=== PATIENT | female | born 1955 | race Hispanic/Latino ===

== ENCOUNTER 2016-10-09 18:54 | Emergency (ER) | payer MEDICAID, SELFPAY ==
[2016-10-09 19:16] VITALS: TEMP 98.3
--- NOTE | 2016-10-09 19:22 | ED PDOC ---
Arrival/HPI - General Chief Complaint: Palpitations Time Seen by Provider: 10/09/16 19:08 Historian: Patient - History of Present Illness Narrative History of Present Illness (Text): 10/09/16 19:16 A 60 year old female, whose past medical history includes type 2 diabetes, hyperlipidemia, COPD and depression, presents to the emergency department complaining of palpitations for the past several weeks. Patient states she seemed to have the palpitations more today causing her to come in for further evaluation. She currently denies any palpitations at this time. Patient notes anxiety and stress of late but denies any fever, chills, nausea, vomiting, diarrhea, abdominal pain, urinary symptoms, chest pain, lower extremity swelling , shortness of breath, headache, dizziness, vision changes or any other complaints. PMD: Dr. Rex Bolanos Time/Duration: Other (Several weeks) Symptom Course: Unchanged Quality: Other Context: Other Past Medical History - Provider Review Nursing Documentation Reviewed: Yes - Infectious Disease Hx of Infectious Diseases: None - Pulmonary Hx Chronic Obstructive Pulmonary Disease (COPD): Yes Hx Pneumonia: Yes (x2) - Endocrine/Metabolic Hx Diabetes Mellitus Type 2: Yes - Hematological/Oncological Other/Comment: Unknown problem with white blood cells. - Psychiatric Hx Depression: Yes Hx Substance Use: No - Surgical History Hx Appendectomy: Yes Family/Social History - Physician Review Nursing Documentation Reviewed: Yes Family/Social History: No Known Family HX Smoking Status: Heavy Smoker > 10 Cigarettes Daily Hx Alcohol Use: No Hx Substance Use: No Allergies/Home Meds Allergies/Adverse Reactions: Allergies sulfur Allergy (Uncoded 10/09/16 19:06) RASH Review of Systems - Physician Review All systems were reviewed & negative as marked: Yes - Review of Systems Constitutional: absent: Fevers, Night Sweats Eyes: absent: Vision Changes Respiratory: absent: SOB Cardiovascular: Palpitations. absent: Chest Pain, Edema, Syncope Gastrointestinal: absent: Abdominal Pain, Diarrhea, Nausea, Vomiting Genitourinary Female: absent: Dysuria, Frequency, Hematuria, Urine Output Changes Neurological: absent: Headache, Dizziness Psychiatric: Anxiety Physical Exam Vital Signs Reviewed: Yes Vital Signs Temp Pulse Resp BP Pulse Ox 10/09/16 19:08 98.3 F 100 H 22 138/91 H 100 Temperature: Afebrile Blood Pressure: Hypertensive Pulse: Regular Respiratory Rate: Normal Appearance: Positive for: Well-Appearing, Non-Toxic, Comfortable Pain Distress: None Mental Status: Positive for: Alert and Oriented X 3 - Systems Exam Head: Present: Atraumatic, Normocephalic Pupils: Present: PERRL Conjunctiva: Present: Normal Mouth: Present: Moist Mucous Membranes Pharnyx: Present: Normal. No: ERYTHEMA, EXUDATE Respiratory/Chest: Present: Clear to Auscultation, Good Air Exchange. No: Respiratory Distress, Accessory Muscle Use Cardiovascular: Present: Regular Rate and Rhythm, Normal S1, S2. No: Murmurs Abdomen: Present: Normal Bowel Sounds. No: Tenderness, Distention, Peritoneal Signs Upper Extremity: Present: Normal Inspection. No: Cyanosis, Edema Lower Extremity: Present: Normal Inspection. No: Edema Neurological: Present: GCS=15, CN II-XII Intact, Speech Normal Skin: Present: Warm, Dry, Normal Color. No: Rashes Psychiatric: Present: Alert, Oriented x 3, Normal Insight, Normal Concentration Medical Decision Making ED Course and Treatment: 10/09/16 19:16 Impression: A 60 year old female with palpitations x several weeks with no associated concerning symptoms such as cp or dizziness or weakness or sob. Patient reports feeling anxious and stressed. EKG is unremarkable. Plan: -- Chest xray -- Labs -- Urinalysis -- Xanax -- Reassess and disposition Progress Notes: EKG shows NSR at 96 BPM with normal intervals, normal axis, no ST/T changes. Interpreted by me. 10/09/16 19:55 Chest xray read and interpreted by me, which shows no active disease. 10/09/16 20:13 On re-evaluation, patient states she feels better after receiving Xanax. She states her palpitations have improved. 10/09/16 21:43 Labs are unremarkable as is CXR and patient with full resolution of the symptoms. HR went from 96 to 70s after xanax. Symptoms may be related to anxiety but will need to f/u pmd and likely cardiology eval. Discussed with Dr. Gaetano Bolanos, who said patient may be seen in the office tomorrow outpatient. Patient has expressed understanding of results after discussion with her and understands that she is to f/u tomorrow with Dr. Bolanos. - Lab Interpretations Lab Results: 10/09/16 19:34 10/09/16 19:34 Lab Results 10/09/16 19:34: Sodium 142, Potassium 4.0, Chloride 106, Carbon Dioxide 24, Anion Gap 16, BUN 19, Creatinine 0.7, Est GFR ( Amer) > 60, Est GFR (Non- Af Amer) > 60, Random Glucose 113 H, Calcium 9.7, Magnesium 2.1, Total Bilirubin 0.4, AST 37, ALT 44, Alkaline Phosphatase 96, Lactate Dehydrogenase 448, Total Creatine Kinase 32 L, Troponin I < 0.01, NT-Pro-B Natriuret Pep 151, Total Protein 7.4, Albumin 4.1, Globulin 3.3, Albumin/Globulin Ratio 1.2, Lipase 172 10/09/16 19:34: PT 10.3, INR 0.95, APTT 24.9, D-Dimer, Quantitative 0.31 10/09/16 19:34: WBC 6.4, RBC 3.99, Hgb 12.5, Hct 36.4, MCV 91.2, MCH 31.3, MCHC 34.3, RDW 12.9, Plt Count 251, MPV 10.8, Gran % 61.1, Lymph % (Auto) 31.2, Carlton % (Auto) 6.1 H, Eos % (Auto) 1.3 L, Baso % (Auto) 0.3, Gran # 3.89, Lymph # 2.0 , Carlton # 0.4, Eos # 0.1, Baso # 0.02 I have reviewed the lab results: Yes - RAD Interpretation Radiology Orders: 10/09/16 19:17 CHEST PORTABLE [RAD] Stat - Medication Orders Current Medication Orders: Discontinued Medications Alprazolam (Xanax) 0.25 mg PO STAT STA PRN Reason: Protocol Stop: 10/09/16 19:19 Last Admin: 10/09/16 19:42 Dose: 0.25 mg - Scribe Statement The provider has reviewed the documentation as recorded by the Lala Damico Provider Scribe Attestation: All medical record entries made by the Scribe were at my direction and personally dictated by me. I have reviewed the chart and agree that the record accurately reflects my personal performance of the history, physical exam, medical decision making, and the department course for this patient. I have also personally directed, reviewed, and agree with the discharge instructions and disposition. Disposition/Present on Arrival - Present on Arrival Any Indicators Present on Arrival: No History of DVT/PE: No History of Uncontrolled Diabetes: No Urinary Catheter: No History of Decub. Ulcer: No History Surgical Site Infection Following: None - Disposition Have Diagnosis and Disposition been Completed?: Yes Diagnosis: Intermittent palpitations Disposition: HOME/ ROUTINE Disposition Time: 21:50 Patient Plan: Discharge Condition: GOOD Discharge Instructions (ExitCare): Palpitations (ED) Additional Instructions: Follow up with Dr. Bolanos tomorrow in the office. Stop smoking. Return to the emergency department if any new concerning symptoms. Referrals: Rex Bolanos MD [Primary Care Provider] - Follow up with primary
[2016-10-09 19:44] LABS: ADD MANUAL DIFF? NO
[2016-10-09 19:48] LABS: BASO # 0.02 K/mm3 (0.0-2.0); BASO % 0.3 % (0.0-3.0); EOS # 0.1 (0.0-0.7); EOS % 1.3 % (1.5-5.0); GRAN # 3.89 (1.4-6.5); GRAN % 61.1 % (50.0-68.0); HEMATOCRIT 36.4 % (36.0-48.0); LYMPH % 31.2 % (22.0-35.0); MEAN CELL VOLUME 91.2 fL (80.0-105.0); MEAN CORPUSCULAR HEMOGLOBIN 31.3 pg (25.0-35.0); MEAN CORPUSCULAR HGB CONC 34.3 g/dl (31.0-37.0); MEAN PLATELET VOLUME 10.8 fl (7.0-11.0); MONO # 0.4 (0.1-0.6); MONO % 6.1 % (1.0-6.0); PLATELET COUNT 251 10^3/uL (120.0-450.0); RED CELL DISTRIBUTION WIDTH 12.9 % (11.5-14.5); WHITE BLOOD COUNT 6.4 10^3/ul (4.5-11.0)
[2016-10-09 19:58] LABS: ALB/GLOB RATIO 1.2 (1.1-1.8); ALKALINE PHOSPHATASE 96 U/L (38-133); ALT/SGPT 44 U/L (7-56); AST/SGOT 37 U/L (15-39); BILIRUBIN,TOTAL 0.4 mg/dL (0.2-1.3); BLOOD UREA NITROGEN 19 mg/dL (7-21); CALCIUM 9.7 mg/dL (8.4-10.5); CARBON DIOXIDE 24 mmol/L (21-33); CHLORIDE 106 mmol/L (98-107); GFR AFRICAN-AMERICAN > 60; GLUCOSE,RANDOM 113 mg/dL (70-110); LIPASE 172 U/L (23-300); MAGNESIUM 2.1 mg/dL (1.7-2.2); SODIUM 142 mmol/L (132-148); TOTAL PROTEIN 7.4 g/dL (5.8-8.3)
[2016-10-09 20:02] LABS: INR 0.95 (0.93-1.08); PARTIAL THROMBOPLASTIN TIME 24.9 Seconds (23.7-30.8)
[2016-10-09 20:04] LABS: D DIMER 0.31 mg/L FEU (0-0.50)
[2016-10-09 20:10] LABS: TROPONIN I < 0.01 ng/mL
[2016-10-09 21:56] VITALS: BP 116/85; PULSE 77; RESP 18; O2SAT 99
--- NOTE | 2016-10-10 08:04 | RAD ---
HISTORY: palpitations COMPARISON: No prior. FINDINGS: LUNGS: No active pulmonary disease. Bilateral hyperaeration. Study is an apical lordotic projection PLEURA: No significant pleural effusion identified, no pneumothorax apparent. CARDIOVASCULAR: Normal. OSSEOUS STRUCTURES: Thoracic spondylosis and mild thoracolumbar scoliosis VISUALIZED UPPER ABDOMEN: Normal. OTHER FINDINGS: None. IMPRESSION: No active disease.
--- NOTE | 2016-10-10 21:51 | CARD ---
APPROVED REPORT EKG Measurement Heart [id number] <Conclusion> Normal sinus rhythm Possible Left atrial enlargement Borderline ECG
== END 2016-10-09 21:58 | disposition home or self-care (01) ==
LOC: ED 18:54
DX: R00.2 Palpitations (principal); E11.9 Type 2 diabetes mellitus without complications; J44.9 Chronic obstructive pulmonary disease, unspecified; E78.5 Hyperlipidemia, unspecified; F17.210 Nicotine dependence, cigarettes, uncomplicated

== ENCOUNTER 2016-10-10 02:29 | Observation (INO) | payer MEDICAID ==
[2016-10-10 02:50] VITALS: BMI 19.3
--- NOTE | 2016-10-10 03:16 | ED PDOC ---
Arrival/HPI - General Chief Complaint: Palpitations Time Seen by Provider: 10/10/16 02:34 Historian: Patient - History of Present Illness Narrative History of Present Illness (Text): 10/10/16 03:15 Mandy Martinez is a 60 year old female smoker, whose past medical history includes type 2 diabetes, hyperlipidemia, COPD and depression, presents to the emergency department complaining of palpitations tonight.Apparently has had these palpitations intermittently for several weeks.Patient was seen in the Emergency department earlier tonight for similar complaint and discharged home after her symptoms improved. Patient states palpitations returned while at home and returned for further evaluation. Patient denies any fever, chills, chest pain, shortness of breath, nausea, vomiting, diarrhea, urinary symptoms, back pain, neck pain, headache, dizziness, or any other complaints.States feels fine presently. PMD: Dr. Fariba Bolanos Time/Duration: Other (tonight) Symptom Onset: Gradual Symptom Course: Unchanged Activities at Onset: Light Context: Home Past Medical History - Provider Review Nursing Documentation Reviewed: Yes - Infectious Disease Hx of Infectious Diseases: None - Pulmonary Hx Chronic Obstructive Pulmonary Disease (COPD): Yes Hx Pneumonia: Yes (x2) - Endocrine/Metabolic Hx Diabetes Mellitus Type 2: Yes - Hematological/Oncological Other/Comment: Unknown problem with white blood cells. - Psychiatric Hx Depression: Yes Hx Substance Use: No - Surgical History Hx Appendectomy: Yes Family/Social History - Physician Review Nursing Documentation Reviewed: Yes Family/Social History: No Known Family HX Smoking Status: Heavy Smoker > 10 Cigarettes Daily Hx Alcohol Use: No Hx Substance Use: No Allergies/Home Meds Allergies/Adverse Reactions: Allergies sulfur Allergy (Uncoded 10/09/16 19:06) RASH Home Medications: Home Meds Medication Instructions Recorded Confirmed No Known Home Med 10/10/16 10/10/16 Review of Systems - Physician Review All systems were reviewed & negative as marked: Yes - Review of Systems Constitutional: Normal. absent: Fevers Eyes: Normal ENT: Normal Respiratory: Normal. absent: SOB, Cough Cardiovascular: Palpitations. absent: Chest Pain Gastrointestinal: Normal. absent: Abdominal Pain, Diarrhea, Nausea, Vomiting Genitourinary Female: Normal. absent: Dysuria, Frequency, Hematuria, Urine Output Changes Musculoskeletal: Normal. absent: Back Pain, Neck Pain Skin: Normal. absent: Rash Neurological: Normal. absent: Headache, Dizziness Endocrine: Normal Hemo/Lymphatic: Normal Psychiatric: Normal Physical Exam Vital Signs Reviewed: Yes Vital Signs Temp Pulse Pulse Resp BP BP Pulse Ox 10/10/16 04:00 73 123/78 10/10/16 02:50 98.2 F 63 18 121/84 99 Temperature: Afebrile Blood Pressure: Normal Pulse: Regular Respiratory Rate: Normal Appearance: Positive for: Well-Appearing, Non-Toxic, Comfortable Pain Distress: None Mental Status: Positive for: Alert and Oriented X 3 - Systems Exam Head: Present: Atraumatic, Normocephalic Pupils: Present: PERRL Extroacular Muscles: Present: EOMI Conjunctiva: Present: Normal Mouth: Present: Moist Mucous Membranes Neck: Present: Normal Range of Motion Respiratory/Chest: Present: Clear to Auscultation, Good Air Exchange. No: Respiratory Distress, Accessory Muscle Use Cardiovascular: Present: Regular Rate and Rhythm, Normal S1, S2. No: Murmurs Abdomen: Present: Normal Bowel Sounds. No: Tenderness, Distention, Peritoneal Signs Back: Present: Normal Inspection Upper Extremity: Present: Normal Inspection. No: Cyanosis, Edema Lower Extremity: Present: Normal Inspection. No: Edema Neurological: Present: GCS=15, CN II-XII Intact, Speech Normal Skin: Present: Warm, Dry, Normal Color. No: Rashes Psychiatric: Present: Alert, Oriented x 3, Normal Insight, Normal Concentration Medical Decision Making ED Course and Treatment: 10/10/16 03:16 Impression: 60 year old female complaining of palpitations tonight. Plan: -- EKG -- Labs, cardiac enzymes -- Reassess and disposition Prior Visits: Notes and results from previous visits were reviewed. Progress Notes: Reviewed EKG, NSR at [address]-segment elevations or depressions, no T-wave inversions, normal intervals. 10/10/16 06:14 Return visit to ER discussed with Dr. Bolanos, who is aware and agrees with plan. Accepts pt in to his service. Requests Telemetry observation for palpitations with Dr. Agustin on cardiac consult. - Lab Interpretations Lab Results: 10/10/16 04:00 10/10/16 04:00 Lab Results 10/10/16 04:00: WBC 5.9, RBC 3.97, Hgb 12.3, Hct 35.9 L, MCV 90.4, MCH 31.0, MCHC 34.3, RDW 13.1, Plt Count 223, MPV 10.3 10/10/16 04:00: Sodium 141, Potassium 4.3, Chloride 110, Carbon Dioxide 24, Anion Gap 11, BUN 18, Creatinine 0.7, Est GFR ( Amer) > 60, Est GFR (Non- Af Amer) > 60, Random Glucose 98, Calcium 9.2, Total Bilirubin 0.3, AST 29, ALT 43, Alkaline Phosphatase 64, Lactate Dehydrogenase 335, Total Creatine Kinase 39 , Troponin I < 0.01, Total Protein 6.7, Albumin 3.9, Globulin 2.8, Albumin/ Globulin Ratio 1.4 10/10/16 04:00: PT 10.2, INR 0.94, APTT 25.9 I have reviewed the lab results: Yes - EKG Interpretation Interpreted by ED Physician: Yes Type: 12 lead EKG - Scribe Statement The provider has reviewed the documentation as recorded by the Tioibviviana Duenas All medical record entries made by the Tioibviviana were at my direction and personally dictated by me. I have reviewed the chart and agree that the record accurately reflects my personal performance of the history, physical exam, medical decision making, and the department course for this patient. I have also personally directed, reviewed, and agree with the discharge instructions and disposition. Disposition/Present on Arrival - Present on Arrival Any Indicators Present on Arrival: No History of DVT/PE: No History of Uncontrolled Diabetes: No Urinary Catheter: No History of Decub. Ulcer: No History Surgical Site Infection Following: None - Disposition Have Diagnosis and Disposition been Completed?: Yes Diagnosis: Heart palpitations Disposition: HOSPITALIZED Disposition Time: 06:18 Patient Plan: Observation Patient Problems: Current Active Problems Problem Status Onset Heart palpitations Acute Condition: STABLE
[2016-10-10 04:15] LABS: HEMATOCRIT 35.9 % (36.0-48.0); MEAN CELL VOLUME 90.4 fL (80.0-105.0); MEAN CORPUSCULAR HGB CONC 34.3 g/dl (31.0-37.0); MEAN PLATELET VOLUME 10.3 fl (7.0-11.0); RED CELL DISTRIBUTION WIDTH 13.1 % (11.5-14.5); WHITE BLOOD COUNT 5.9 10^3/ul (4.5-11.0)
[2016-10-10 04:22] LABS: INR 0.94 (0.93-1.08); PARTIAL THROMBOPLASTIN TIME 25.9 Seconds (23.7-30.8)
[2016-10-10 04:29] LABS: ALB/GLOB RATIO 1.4 (1.1-1.8); ALKALINE PHOSPHATASE 64 U/L (38-133); ALT/SGPT 43 U/L (7-56); AST/SGOT 29 U/L (15-39); BILIRUBIN,TOTAL 0.3 mg/dL (0.2-1.3); BLOOD UREA NITROGEN 18 mg/dL (7-21); CALCIUM 9.2 mg/dL (8.4-10.5); CARBON DIOXIDE 24 mmol/L (21-33); CHLORIDE 110 mmol/L (95-110); GFR AFRICAN-AMERICAN > 60; GLUCOSE,RANDOM 98 mg/dL (70-110); POTASSIUM 4.3 mmol/L (3.6-5.0); SODIUM 141 mmol/L (132-148); TOTAL PROTEIN 6.7 g/dL (5.8-8.3)
[2016-10-10 04:53] LABS: TROPONIN I < 0.01 ng/mL
[2016-10-10 16:44] LABS: TROPONIN I < 0.01 ng/mL
--- NOTE | 2016-10-10 18:30 | CARD ---
APPROVED REPORT EXAM: Two-dimensional and M-mode echocardiogram with Doppler and color Doppler. INDICATION Palpitations 2D DIMENSIONS Left Atrium (2D)2.8 (1.6-4.0cm)IVSd1.1 (0.7-1.1cm) LVDd4.7 (3.9-5.9cm)PWd0.9 (0.7-1.1cm) LVDs2.7 (2.5-4.0cm)FS (%) 42.3 % LVEF (%)73.3 (>50%) M-Mode DIMENSIONS Aortic Root2.60 (2.2-3.7cm)Aortic Cusp Exc.1.50 (1.5-2.0cm) Aortic Valve AoV Peak Xhvgoeuv018.0cm/Rosalina Peak GR.11mmHg Mitral Valve MV E Jqrdlrls57.4cm/sMV A Acyvftsj25.4cm/sE/A ratio1.2 TDI E/Lateral E'0.0E/Medial E'0.0 Tricuspid Valve TR Peak Ovyjeccn717ql/sRAP [id number] Peak Gr.15mmHg [id number] LEFT VENTRICLE The left ventricle is normal size. There is normal left ventricular wall thickness. The left ventricular function is normal.EF-65-70 There is normal LV segmental wall motion. The left ventricular diastolic function is normal. No left ventricle thrombus noted on this study. There is no ventricular septal defect visualized. There is no left ventricular aneurysm. There is no mass noted in the left ventricle. RIGHT VENTRICLE The right ventricle is normal size. There is normal right ventricular wall thickness. The right ventricular systolic function is normal. ATRIA The left atrium size is normal. The right atrium size is normal. The interatrial septum is intact with no evidence for an atrial septal defect. AORTIC VALVE The aortic valve is thickened but opens well. There is trace aortic regurgitation. There is no aortic valvular stenosis. There is no aortic valvular vegetation. MITRAL VALVE The mitral valve is thickened but opens well. Mitral regurgitation is mild. There is no mitral valve stenosis. There is no evidence of mitral valve prolapse. TRICUSPID VALVE The tricuspid valve leaflets are thickened , but open well. There is mild tricuspid regurgitation.RVSp-25 mmof Hg. There is no tricuspid valve stenosis. There is no tricuspid valve prolapse or vegetation. PULMONIC VALVE The pulmonary valve is normal in structure. There is trace pulmonic valvular regurgitation. There is no pulmonic valvular stenosis. GREAT VESSELS The aortic root is normal in size. The ascending aorta is normal in size. The pulmonary artery is normal. The IVC is normal in size and collapses >50% with inspiration. PERICARDIAL EFFUSION There is no pleural effusion. There is no pericardial effusion. <Conclusion> Normal chamber Size. EF-65% Mild MR/TR RVSP-25 mmof hg.
--- NOTE | 2016-10-10 21:24 | CON ---
DATE: 10/10/2016 SERVICE: Cardiology. REASON FOR CONSULTATION AND FOLLOWUP: Palpitation and cardiac evaluation. BRIEF CLINICAL HISTORY: This is a 60-year-old female, active tobacco abuse, history of type 2 diabet es, hypertension, hyperlipidemia, depression, COPD, active tobacco abuse, admitted last night, came t o the Emergency Room with complaint of palpitation. The patient was apparently sent home, then came back again with a complaint of palpitations, admitted here for evaluation. The patient denies any ch est pain, but complained of palpitation. PAST MEDICAL HISTORY: Significant for type 2 diabetes, hypertension, hyperlipidemia, COPD, depressio n. The patient is a very poor historian. During interrogation, the patient keeps on falling asleep and closing her eyes and is not cooperating. CURRENT MEDICATIONS: The patient, at home, says that she take pills for the diabetes, unknown name. ALLERGIES: SULFA DRUGS. SOCIAL HISTORY: Active tobacco abuse. Denies any history of alcohol abuse. FAMILY HISTORY: Noncontributory. REVIEW OF SYSTEMS: As per HPI. PHYSICAL EXAMINATION: VITAL SIGNS: Temperature afebrile, heart rate 81, blood pressure 100/63. HEENT: PERRLA. Extraocular muscles intact. NECK: Supple. No carotid bruits. No thyromegaly. CHEST: Clear to auscultation. HEART: S1, S2 regular. ABDOMEN: Soft. EXTREMITIES: Clubbing and cyanosis negative. LABORATORY DATA: Blood workup as follows: WBC 5.9, hemoglobin 12.3, hematocrit 35.9, platelet count 223. Chemistry shows sodium 141, potassium 4.0, chloride , carbon dioxide 24, anion gap of 11, BUN 18, creatinine 0.7. Troponin 0.01, negative. IMPRESSION: Atypical chest pain, diabetes, hypertension, hyperlipidemia. RECOMMENDATION: Lipid profile, TSH, hemoglobin A1c. We will get echo and stress thallium. Further recommendation after the stress test. We will start baby aspirin and we will start low dose of ateno lol as blood pressure and heart rate is tolerated. We will follow with you. Thank you, Dr. Bolanos, for providing us the opportunity in taking care of this patient. Jn Smith MD cc: [id number] TT: 10/10/2016 21:23:21 Confirmation # [id number] Dictation # [id number]
--- NOTE | 2016-10-10 21:48 | CARD ---
APPROVED REPORT EKG Measurement Heart [id number] <Conclusion> Normal sinus rhythm Normal ECG
[2016-10-11 07:09] LABS: ADD MANUAL DIFF? NO
[2016-10-11 07:17] LABS: BASO # 0.02 K/mm3 (0.0-2.0); BASO % 0.4 % (0.0-3.0); EOS # 0.1 (0.0-0.7); EOS % 2.1 % (1.5-5.0); GRAN # 2.69 (1.4-6.5); GRAN % 51.8 % (50.0-68.0); HEMATOCRIT 40.5 % (36.0-48.0); LYMPH % 39.3 % (22.0-35.0); MEAN CELL VOLUME 91.2 fL (80.0-105.0); MEAN CORPUSCULAR HEMOGLOBIN 30.6 pg (25.0-35.0); MEAN CORPUSCULAR HGB CONC 33.6 g/dl (31.0-37.0); MEAN PLATELET VOLUME 10.6 fl (7.0-11.0); MONO # 0.3 (0.1-0.6); MONO % 6.4 % (1.0-6.0); PLATELET COUNT 249 10^3/uL (120.0-450.0); RED CELL DISTRIBUTION WIDTH 13.1 % (11.5-14.5); WHITE BLOOD COUNT 5.2 10^3/ul (4.5-11.0)
[2016-10-11 07:36] LABS: ALB/GLOB RATIO 1.3 (1.1-1.8); ALKALINE PHOSPHATASE 56 U/L (38-133); ALT/SGPT 40 U/L (7-56); AST/SGOT 26 U/L (15-39); BILIRUBIN,TOTAL 0.6 mg/dL (0.2-1.3); BLOOD UREA NITROGEN 18 mg/dL (7-21); CALCIUM 9.5 mg/dL (8.4-10.5); CARBON DIOXIDE 27 mmol/L (21-33); CHLORIDE 107 mmol/L (98-107); CHOLESTEROL 194 mg/dL (130-200); GFR AFRICAN-AMERICAN > 60; GLUCOSE,RANDOM 84 mg/dL (70-110); MAGNESIUM 2.1 mg/dL (1.7-2.2); PHOSPHOROUS 3.9 mg/dL (2.5-4.5); POTASSIUM 4.7 mmol/L (3.6-5.0); SODIUM 142 mmol/L (132-148); TOTAL PROTEIN 7.5 g/dL (5.8-8.3)
[2016-10-11] MEDS ORDERED: Aminophylline 25 mg/ml Inj ONE (10:02)
--- NOTE | 2016-10-11 16:08 | PN ---
DATE: 10/11/2016 REASON FOR CONSULTATION AND FOLLOWUP: Palpitation, cardiac evaluation. BRIEF CLINICAL HISTORY: This is a 60-year-old female with past medical history of active tobacco abu se, diabetes, hypertension, hyperlipidemia, depression, COPD, active tobacco abuse, admitted with com plaint of palpitations; came twice to the ER - sent home and came back again the second time with com plaint of palpitations. The patient is scheduled for an echo and a stress test today. Denies any ch est pain, shortness of breath, any palpitation. PHYSICAL EXAMINATION: VITAL SIGNS: Temperature afebrile, heart rate 102/60. HEENT: PERRLA. Extraocular muscles intact. NECK: Supple. No carotid bruits. No thyromegaly. CHEST: Clear to auscultation. HEART: S1, S2 regular. ABDOMEN: Soft. EXTREMITIES: Clubbing and cyanosis negative. LABORATORY DATA: WBC 5.____, hemoglobin 13.____, hematocrit 40.5, platelet count 249. Chemistry michelle ws sodium 140, potassium 4.7, chloride 107, carbon dioxide 27, anion gap of 13, BUN 18, creatinine 0. 7. TSH 0.45. Triglycerides 112, cholesterol 194, LDL 97, HDL 70. Troponin 0.01. No evidence of acute myocardial infarction. Complained of chest pain, palpitation, uncomfortable fee ling inside the chest, history of tobacco abuse, history of alcohol abuse, rule out coronary artery d isease, multiple risk factors. Will suggest echo and stress test. Further recommendation after the stress test. Will follow with you. Thank you, Dr. Bolanos, for providing the opportunity in taking care of the patient. Jn Smith MD cc: [id number] TT: 10/11/2016 16:07:45 Confirmation # [id number] Dictation # [id number]
--- NOTE | 2016-10-11 20:53 | CARD ---
APPROVED REPORT Protocol: LEXISCAN Test Type: Lexiscan Sestamibi Stress Test Attending Physician: Dr. Jn Agustin Referring Physician: Dr. Gabriel Bolanos Test Indications: Chest Pain Height:5 ft 0 in Weight:113lbs Medications: Aspirin, Tenormin, Lipitor, Glucophage, Remeron, Effexor Medical History: 60 y/o female with a history of htn, COPD, current smoker, diabetes, and palpitations Target HR: 161 bpm Resting ECG: RSR. Resting Heart Rate: 67 bpm Resting Blood Pressure: 110/70mmHg Submaximum (85%): 137 bpm PROCEDURE Pharmacologic stress testing was performed using 0.4mg per 5ml of regadenoson given intravenously over 7-10 seconds. POST EXERCISE Reason for Termination: Protocol completed Target HR: No Max HR: 65 bpm 70% of Maximum Predicted HR: 161 bpm Exercise duration: 00:31 min:sec, 0 Stage Exercise capacity: 1.0METs Max Blood Pressure: 110/70mmHg Blood Pressure response to exercise: normal resting BP - appropriate response Heart Rate response to exercise: appropriate Chest Pain: No, none Angina index: 0 Arrhythmia: No, none ST Change: No, none Deviation: 0 mm INTERPRETATION Stress EKG Conclusion: IV LEXISCAN NUCLEAR STRESS TEST NEGATIVE FOR CHEST PAIN AND NEGATIVE FOR ST-T CHANGES. NUCLEAR SCAN REPORT PENDING. Signed by Jn Agustin Electronically Approved: 10/11/2016 11:15:30 EXAM: Myocardial Perfusion REST/STRESS Stress Test Type: Pharmacologic Imaging Protocol Rest Spect myocardial perfusion imaging was performed in supine position 50 minutes following the injection of 10.5 mCi of Tc-99 Myoview. At peak stress, the patient was injected intravenously with 30.4mCi of Tc-99 tetrofosmin after an infusion time of 0 minutes and 10 seconds. Gated Stress Spect was performed 70 minutes after intravenous Tc-99 Myoview injection. The images were gated to evaluate regional wall motion and calculate ventricular ejection fraction.Images were reconstructed using backfilter projection method in short horizontal and verticle long axis. Spect slices were generated. LV Perfusion The quality of the study is good. The left ventricle is normal in size. The right ventricle is unremarkable. The lung uptake is within normal limits. The distribution of tracer reveals normal uptake pattern throughout the LV myocardium on the stress study. The rest myocardial perfusion study shows no significant change. Wall Motion Wall motion study shows good contractility of the left ventricle. LVEF = 70%. Conclusion 1. Normal SPECT myocardial perfusion study. 2. Normal gated wall motion of the left ventricle.
--- NOTE | 2016-10-11 22:14 | PN ---
DATE: 10/11/2016 This is a 60-year-old woman was seen and admitted by Dr. Praful Bolanos yesterday with chest pain and p alpitations. She was admitted to the telemetry, heart monitored floor; was observed overnight with n o significant ectopy. She has been chest pain free and is at a thallium stress test this morning. P ending results of the stress test hopefully she can be discharged soon. Gabriel Bolanos MD cc: [id number] TT: 10/11/2016 22:14:14 Confirmation # [id number] Dictation # [id number]
[2016-10-12 06:02] VITALS: O2SAT 100
--- NOTE | 2016-10-12 09:57 | PN ---
DATE: 10/12/2016 REASON FOR CONSULTATION AND FOLLOWUP: Palpitation, cardiac evaluation. BRIEF CLINICAL HISTORY: This is a 60-year-old female with a past medical history significant for act phillip tobacco abuse, diabetes, hypertension, hyperlipidemia, depression, COPD. Admitted with a complai nt of palpitation, chest pain. The patient underwent yesterday a stress test, normal. Denies any ch est pain, shortness of breath, any palpitation. PHYSICAL EXAMINATION: VITAL SIGNS: Temperature afebrile, heart rate 61, blood pressure 117/63. HEENT: PERRLA. Extraocular muscles intact. NECK: Supple. No carotid bruits. No thyromegaly. CHEST: Clear to auscultation. HEART: S1, S2 regular. ABDOMEN: Soft. EXTREMITIES: Clubbing, cyanosis negative. BLOOD WORKUP: WBC 5.2, hemoglobin 13.6, hematocrit 40.5, platelet count 249. Chemistry shows sodium 142, potassium 4. , chloride 107, carbon dioxide 27, anion gap of 13, BUN 18, creatinine 0.7. T roponin 0.01. IMPRESSION: No evidence of acute myocardial infarction, no evidence of acute coronary syndrome. The patient underwent a stress test that showed essentially normal myocardial perfusion study, ejection fraction 70%. The patient had echocardiography also, normal chamber size, ejection fraction 50%-55%, mild mitral regurgitation, mild tricuspid regurgitation, right ventricular systolic pressure 25. At ypical chest pain, negative stress test. Continue atenolol 12.5 mg for palpitation. We will discontinue telemetry. Possible discharge. Comp lete cessation of smoking, complete abstinence of alcohol discussed with the patient. We will follow with you. Thank you, Dr. Bolanos, for providing us the opportunity in taking care of the patient. Jn Smith MD cc: [id number] TT: 10/12/2016 09:57:26 Confirmation # [id number] Dictation # [id number] en
[2016-10-12 13:06] VITALS: BP 118/80; PULSE 60; RESP 19; TEMP 98.9
--- NOTE | 2016-10-13 22:05 | DS ---
This is a 60-year-old woman with limited past medical history and limited follow up to medical [facility] in [place], but her family is well known to us. She came to the [facility] because of an atypical type of chest pain and palpitations. She was seen in the Emergency Room, admitted to the lemetry floor, and admitted by Dr. Praful Bolanos. Cardiac workup and consultation was done by Dr. Dailey and Dr. Smith. Echocardiogram was essentially unremarkable. Thallium stress test was normal. He r chest pain was felt to be noncardiac and both palpitations and chest pain were most likely related to anxiety. She was comfortable, medically stable and ready for discharge to home. She will c ontinue on a small dose of atenolol for her heart rate and blood pressure. IMPRESSION: Chest pain, cardiac etiology, palpitations, mild tachyarrhythmia and hypertension. PLAN: Discharge and follow up in the office in 1-2 weeks. A prescription for atenolol was called to the local pharmacy. Gabriel Bolanos MD cc: [id number] TT: 10/13/2016 22:04:28 farshad
--- NOTE | 2017-01-11 15:00 | HP ---
ADMITTING HISTORY AND PHYSICAL HISTORY OF PRESENT ILLNESS: The patient is a 52-year-old female who presents to the emergency room complaining of anterior chest pain and palpitations. She had the palpitations coming and going over the past several weeks. She was seen several times in the emergency room with similar complaints, and after her symptoms improved in the emergency room, she discharged to home. However, symptoms recurred and returns to the emergency room. She denies any shortness of breath, nausea, vomiting or diarrhea. PAST MEDICAL HISTORY: She is known to have a history of type 2 diabetes, hyperlipidemia, COPD and depression. PAST SURGICAL HISTORY: The patient is status post appendectomy. SOCIAL HISTORY: She continues to smoke 10 cigarettes a day. She is a nonalcoholic drinker. ALLERGIES: SHE IS KNOWN TO BE ALLERGIC TO SULFA DRUGS, WHICH CAUSED A RASH IN THE PAST. MEDICATIONS: She cannot remember her medications that are taken at home. REVIEW OF SYSTEMS: Otherwise unremarkable. PHYSICAL EXAMINATION: VITAL SIGNS: Her blood pressure is 121/84, heart rate is 63 and she has 98.2 degrees Fahrenheit. GENERAL: She is awake, alert and oriented. HEENT: Examination of the head, eyes, ears, nose and throat was unremarkable. NECK: Supple with no lymphadenopathy. No goiter. LUNGS: Clear to auscultation and percussion. HEART: Sounds are regular. No murmur is appreciated. ABDOMEN: Soft and nontender with no organomegaly. EXTREMITIES: Free of cyanosis, clubbing or edema. NEUROLOGICAL: The patient is intact. LABORATORY DATA: EKG shows regular sinus rhythm at 71 beats per minute with no acute changes. The white blood cell count is 5.9, hemoglobin and hematocrit are 12.3 and 35.9 respectively. Serum chemistries are normal. Troponins are negative and less than 0.01. Total creatinine kinase is normal at 39. IMPRESSION AND PLAN: The patient is to be admitted with a diagnosis of palpitations and we will be asking Dr. Smith, the flavorings compounder, to consult on the case. The patient will be followed closely. Rex Bolanos MD
== END 2016-10-12 16:17 | disposition home or self-care (01) ==
LOC: ED 02:29 → ERH 06:15 → 2RNO 08:11
PROVIDERS: ADMIT Internal Medicine; ATTEND Internal Medicine
DX: R07.89 Other chest pain (principal); F41.9 Anxiety disorder, unspecified; E11.9 Type 2 diabetes mellitus without complications; E78.5 Hyperlipidemia, unspecified; I10 Essential (primary) hypertension; J44.9 Chronic obstructive pulmonary disease, unspecified; F17.200 Nicotine dependence, unspecified, uncomplicated; I08.1 Rheumatic disorders of both mitral and tricuspid valves; Z87.01 Personal history of pneumonia (recurrent); Z90.49 Acquired absence of other specified parts of digestive tract; F32.89 Other specified depressive episodes; Z88.2 Allergy status to sulfonamides; R00.0 Tachycardia, unspecified
CPT/HCPCS: 36415; 78452; 80053; 80061; 82550; 82948; 83036; 83615; 83735; 84100; 84443; 84484; 85025; 85027; 85610; 85730; 93005; 93017; 93306; 99285; A9502; G0378; J2785

== ENCOUNTER 2016-10-22 09:34 | Emergency (ER) | payer MEDICAID ==
[2016-10-22 09:47] VITALS: O2SAT 99; BMI 18.8
--- NOTE | 2016-10-22 10:12 | ED PDOC ---
Arrival/HPI - General Historian: Patient - General Chief Complaint: Palpitations Time Seen by Provider: 10/22/16 09:59 - History of Present Illness Narrative History of Present Illness (Text): 10/22/16 10:09 61yo female with history of Anxiety present with complaint of palpitation and shivering. Notes that this is the symptoms she have with anxiety. states she has been having these symptoms for months now. Recently started anxiolytics a week ago. States she started having the anxiety more often. Denies chest pain, SOB, diaphoresis, nausea, vomiting, recent travel, [place], [place], dizziness, any other complaint. (Sulma Calle A) Past Medical History - Provider Review Nursing Documentation Reviewed: Yes - Infectious Disease Hx of Infectious Diseases: None - Cardiac Hx Cardiac Disorders: Yes Hx Hypertension: Yes - Pulmonary Hx Respiratory Disorders: Yes Hx Bronchitis: Yes Hx Chronic Obstructive Pulmonary Disease (COPD): Yes Hx Emphysema: Yes Hx Pneumonia: Yes Hx Respiratory Aspiration: No Hx Respiratory Tract Infection: Yes Hx Sleep Apnea: No Hx Tuberculosis: No - Neurological Hx Neurological Disorder: Yes Hx Alzheimer's Disease: No HX Cerebrovascular Accident: No Hx Dementia: No Hx Dizziness: Yes Hx Meningitis: No Hx Migraine: Yes Hx Parkinson's Disease: No Hx Seizures: No Hx Transient Ischemic Attacks (TIA): No - HEENT Hx HEENT Disorder: Yes (blurred vision) Hx Blind: No Hx Cataracts: No Hx Deafness: No Hx Difficulty Chewing: No Hx Epistaxis: Yes Hx Glaucoma: No Hx Macular Degeneration: No - Renal Hx Renal Disorder: No Hx Dialysis: No Hx Kidney Stones: No Hx Neurogenic Bladder: No Hx Pyelonephritis: No Hx Renal Cancer: No Hx Renal Failure: No - Endocrine/Metabolic Hx Endocrine Disorders: Yes Hx Adrenal Cancer: No Hx Diabetes Insipidus: No Hx Diabetes Mellitus Type 1: No Hx Diabetes Mellitus Type 2: Yes Hx Hyperthyroidism: Yes Hx Hypothyroidism: No Hx Systemic Lupus Erythematosus: No - Hematological/Oncological Hx Blood Disorders: Yes Hx AIDS: No Hx Anemia: Yes Hx Cancer: No Hx Chemotherapy: No Hx Cirrhosis: No Hx Hemophilia: No Hx Hepatitis A: No Hx Hepatitis B: No Hx Hepatitis C: No Hx Metastasis: No Hx Shingles: No Hx Sickle Cell Disease: No Hx Unexplained Bleeding: No - Integumentary Hx Dermatological Disorder: No - Musculoskeletal/Rheumatological Hx Musculoskeletal Disorders: No Hx Arthritis: No Hx Back Pain: No Hx Degenerative Joint Disease: No Hx Falls: No Hx Fractures: No Hx Gout: No Hx Herniated Disk: No Hx Myasthenia Gravis: No Hx Osteoarthritis: No Hx Osteomyelitis: No Hx Osteoporosis: No Hx Rhabdomyolysis: No Hx Spinal Stenosis: No Hx Unsteady Gait: No - Gastrointestinal Hx Gastrointestinal Disorders: No Hx Colostomy: No Hx Crohn's Disease: No Hx Diverticulitis: No Hx Gall Bladder Disease: No Hx Gastroesophageal Reflux: No Hx Gastrointestinal Ulcer: No Hx Ileostomy: No Hx Liver Failure: No Hx Pancreatitis: No HX Swallowing Problems: No - Genitourinary/Gynecological Hx Genitourinary Disorders: Yes Hx Hematuria: No Hx Prostate Problems: No Hx Sexually Transmitted Diseases: No Hx Urinary Tract Infection: Yes - Psychiatric Hx Psychophysiologic Disorder: Yes Hx Anxiety: Yes Hx Bipolar Disorder: Yes Hx Depression: Yes Hx Emotional Abuse: No Hx Hallucinations: Yes Hx Panic Disorder: Yes Hx Post Traumatic Stress Disorder: Yes Hx Psychosis: No Hx Physical Abuse: No Hx Schizophrenia: No Hx Sexual Abuse: No Hx Substance Use: Yes - Surgical History Hx Amputation: No Hx Appendectomy: No Hx Cholecystectomy: No Hx Gastric Bypass Surgery: No Hx Hysterectomy: No Hx Joint Replacement: No Hx Kidney Transplant: No Hx Liver Transplant: No Hx Mastectomy: No Hx Musculoskeletal Surgery: No Hx Open Heart Surgery: No Hx Orthopedic Surgery: No Hx Splenectomy: No Hx Valve Replacement: No - Anesthesia Hx Anesthesia: Yes Hx Anesthesia Reactions: No Family/Social History - Physician Review Nursing Documentation Reviewed: Yes Family/Social History: Unknown Family HX Smoking Status: Current Some Days Smoker Hx Alcohol Use: Yes Hx Substance Use: Yes Allergies/Home Meds Allergies/Adverse Reactions: Allergies sulfur Allergy (Uncoded 10/22/16 09:47) RASH Review of Systems - Physician Review All systems were reviewed & negative as marked: Yes - Review of Systems Constitutional: Normal Eyes: Normal ENT: Normal Respiratory: Normal Cardiovascular: Palpitations. absent: Chest Pain, Edema, Calf Pain, [place], Orthopnea, Syncope Gastrointestinal: Normal Genitourinary Female: Normal Musculoskeletal: Normal Skin: Normal Neurological: Normal Endocrine: Normal Hemo/Lymphatic: Normal Psychiatric: Normal Physical Exam Vital Signs Reviewed: Yes Temperature: Afebrile Blood Pressure: Normal Pulse: Regular Respiratory Rate: Normal Appearance: Positive for: Well-Appearing, Non-Toxic, Comfortable Pain Distress: None Mental Status: Positive for: Alert and Oriented X 3 - Systems Exam Head: Present: Atraumatic, Normocephalic Pupils: Present: PERRL Extroacular Muscles: Present: EOMI Conjunctiva: Present: Normal Mouth: Present: Moist Mucous Membranes Neck: Present: Normal Range of Motion Respiratory/Chest: Present: Clear to Auscultation, Good Air Exchange. No: Respiratory Distress, Accessory Muscle Use, Wheezes, Decreased Breath Sounds, Rales, Retracting, Rhonchi Cardiovascular: Present: Regular Rate and Rhythm, Normal S1, S2. No: Murmurs Abdomen: Present: Normal Bowel Sounds. No: Tenderness, Distention, Peritoneal Signs Back: Present: Normal Inspection Upper Extremity: Present: Normal Inspection. No: Cyanosis, Edema Lower Extremity: Present: Normal Inspection. No: Edema Neurological: Present: GCS=15, CN II-XII Intact, Speech Normal Skin: Present: Warm, Dry, Normal Color. No: Rashes Psychiatric: Present: Alert, Oriented x 3, Normal Insight, Normal Concentration Vital Signs Temp Pulse Resp BP Pulse Ox 10/22/16 12:00 98.2 F 74 18 121/72 99 10/22/16 09:47 97.4 F L 80 20 130/78 99 Medical Decision Making - EKG Interpretation Interpreted by ED Physician: Yes (NSR @82bpm) ED Course and Treatment: I was available for consultation during PA evaluation. The chart reviewed by me , and I agree with disposition. The documented history was done by the physician financial sales associate. The documented physical exam was done by the physician financial sales associate. The documented procedures were done by the physician financial sales associate. (Tyron La) PT in ED for stated history. Her labs was unremarkable. EKG NSR. Chest xray NAD. Review of her chart indicated that pt was seen her twice earlier this month. She had echo and myocardial stress which was both negative earlier this month. Patient's symptoms seems more like anxiety related. She is currently not on any anxiolytics, as she was given atenolol two weeks ago. Will recommend psych consult. Case was DW the PMD, Dr. walter. He requested that pt be discharged home and referred to his office and to [facility]. All result and plan was DW the pt. She was advised to f/u with her PMD this week. TRT ED for new or worsening symptoms. (u,Sulma A) - Lab Interpretations Lab Results: 10/22/16 10:00 10/22/16 10:00 Lab Results 10/22/16 10:00: Alcohol, Quantitative < 10 10/22/16 10:00: Sodium 140, Potassium 4.1, Chloride 108 H, Carbon Dioxide 25, Anion Gap 11, BUN 18, Creatinine 0.6, Est GFR ( Amer) > 60, Est GFR (Non- Af Amer) > 60, Random Glucose 90, Calcium 9.3, Magnesium 2.0, Total Bilirubin 0.4, AST 32, ALT 42, Alkaline Phosphatase 72, Lactate Dehydrogenase 366, Total Creatine Kinase 23 L, Troponin I < 0.01, Total Protein 6.7, Albumin 3.8, Globulin 2.9, Albumin/Globulin Ratio 1.3 10/22/16 10:00: PT 10.2, INR 0.94, APTT 24.5 10/22/16 10:00: WBC 6.2, RBC 3.80, Hgb 11.8 L, Hct 35.0 L, MCV 92.1, MCH 31.1, MCHC 33.7, RDW 13.6, Plt Count 223, MPV 10.2, Gran % 57.3, Lymph % (Auto) 35.0, [place] % (Auto) 5.5, Eos % (Auto) 1.9, Baso % (Auto) 0.3, Gran # 3.54, Lymph # 2.2 , [place] # 0.3, Eos # 0.1, Baso # 0.02 - RAD Interpretation Radiology Orders: 10/22/16 09:59 CHEST PORTABLE [RAD] Stat Disposition/Present on Arrival - Present on Arrival Any Indicators Present on Arrival: No History of DVT/PE: No History of Uncontrolled Diabetes: No Urinary Catheter: No History of Decub. Ulcer: No History Surgical Site Infection Following: None - Disposition Have Diagnosis and Disposition been Completed?: Yes Disposition Time: 11:05 Patient Plan: Discharge - Disposition Diagnosis: Heart palpitations Disposition: HOME/ ROUTINE Condition: STABLE Discharge Instructions (ExitCare): Palpitations (ED) Additional Instructions: Follow up with your Doctor this week Follow up with [facility] Return to ED for any new or worsening symptoms Referrals: [facility] [Outside] - Follow up with primary Rex Bolanos MD [Primary Care Provider] - Follow up with primary
[2016-10-22 10:23] LABS: ADD MANUAL DIFF? NO
[2016-10-22 10:28] LABS: BASO # 0.02 K/mm3 (0.0-2.0); BASO % 0.3 % (0.0-3.0); EOS # 0.1 (0.0-0.7); EOS % 1.9 % (1.5-5.0); GRAN # 3.54 (1.4-6.5); GRAN % 57.3 % (50.0-68.0); LYMPH # 2.2 (1.2-3.4); MEAN CELL VOLUME 92.1 fL (80.0-105.0); MEAN CORPUSCULAR HEMOGLOBIN 31.1 pg (25.0-35.0); MEAN CORPUSCULAR HGB CONC 33.7 g/dl (31.0-37.0); MEAN PLATELET VOLUME 10.2 fl (7.0-11.0); MONO # 0.3 (0.1-0.6); MONO % 5.5 % (1.0-6.0); PLATELET COUNT 223 10^3/uL (120.0-450.0); RED CELL DISTRIBUTION WIDTH 13.6 % (11.5-14.5); WHITE BLOOD COUNT 6.2 10^3/ul (4.5-11.0)
[2016-10-22 10:36] LABS: INR 0.94 (0.93-1.08); PARTIAL THROMBOPLASTIN TIME 24.5 Seconds (23.7-30.8)
[2016-10-22 10:37] LABS: ALB/GLOB RATIO 1.3 (1.1-1.8); ALKALINE PHOSPHATASE 72 U/L (38-133); ALT/SGPT 42 U/L (7-56); AST/SGOT 32 U/L (15-39); BILIRUBIN,TOTAL 0.4 mg/dL (0.2-1.3); BLOOD UREA NITROGEN 18 mg/dL (7-21); CALCIUM 9.3 mg/dL (8.4-10.5); CARBON DIOXIDE 25 mmol/L (21-33); CHLORIDE 108 mmol/L (98-107); GFR AFRICAN-AMERICAN > 60; GLUCOSE,RANDOM 90 mg/dL (70-110); POTASSIUM 4.1 mmol/L (3.6-5.0); SODIUM 140 mmol/L (132-148); TOTAL PROTEIN 6.7 g/dL (5.8-8.3)
[2016-10-22 10:48] LABS: TROPONIN I < 0.01 ng/mL
--- NOTE | 2016-10-22 10:50 | RAD ---
HISTORY: Palpitation COMPARISON: 10/09/2016 FINDINGS: LUNGS: No active pulmonary disease. PLEURA: No significant pleural effusion identified, no pneumothorax apparent. CARDIOVASCULAR: Normal. OSSEOUS STRUCTURES: No significant abnormalities. VISUALIZED UPPER ABDOMEN: Normal. OTHER FINDINGS: None. IMPRESSION: No active disease.
[2016-10-22 12:01] VITALS: BP 121/72; PULSE 74; RESP 18; TEMP 98.2
--- NOTE | 2016-10-23 02:20 | CARD ---
APPROVED REPORT EKG Measurement Heart [id number] <Conclusion> Normal sinus rhythm Normal ECG
== END 2016-10-22 12:02 | disposition home or self-care (01) ==
LOC: ED 09:34
DX: R00.2 Palpitations (principal)

== ENCOUNTER 2016-10-22 20:42 | Observation (INO) | payer MEDICAID ==
[2016-10-22 21:25] VITALS: RESP 18
[2016-10-22 21:28] VITALS: BMI 22.3
--- NOTE | 2016-10-22 21:51 | ED PDOC ---
Arrival/HPI - General Chief Complaint: Palpitations Time Seen by Provider: 10/22/16 21:00 Historian: Patient - History of Present Illness Narrative History of Present Illness (Text): 10/22/16 21:47 Mandy Martinez is a 61 year old female, whose past medical history includes hypertension, diabetes, COPD, bronchitis, and anxiety, presents to the emergency department for evaluation of intermittent episodes of palpitations. Patient was evaluated earlier today at [facility] for similar symptoms and was discharged home after unremarkable labs, EKG and chest X-ray. Patient states she continued to experience palpitations after discharge. Denies any headache, dizziness, chest pain, shortness of breath, nausea, vomiting, diarrhea, urinary symptoms, or any other complaints at this time. Time/Duration: > month Symptom Onset: Gradual Symptom Course: Intermittent Severity Level: Mild Activities at Onset: Light Past Medical History - Provider Review Nursing Documentation Reviewed: Yes - Infectious Disease Hx of Infectious Diseases: None - Reproductive Menopause: Yes - Cardiac Hx Cardiac Disorders: Yes Hx Hypertension: Yes - Pulmonary Hx Respiratory Disorders: Yes Hx Bronchitis: Yes Hx Chronic Obstructive Pulmonary Disease (COPD): Yes Hx Emphysema: Yes Hx Pneumonia: Yes Hx Respiratory Aspiration: No Hx Respiratory Tract Infection: Yes Hx Sleep Apnea: No Hx Tuberculosis: No - Neurological Hx Neurological Disorder: Yes Hx Alzheimer's Disease: No HX Cerebrovascular Accident: No Hx Dementia: No Hx Dizziness: Yes Hx Meningitis: No Hx Migraine: Yes Hx Parkinson's Disease: No Hx Seizures: No Hx Transient Ischemic Attacks (TIA): No - HEENT Hx HEENT Disorder: Yes (blurred vision) Hx Blind: No Hx Cataracts: No Hx Deafness: No Hx Difficulty Chewing: No Hx Epistaxis: Yes Hx Glaucoma: No Hx Macular Degeneration: No - Renal Hx Renal Disorder: No Hx Dialysis: No Hx Kidney Stones: No Hx Neurogenic Bladder: No Hx Pyelonephritis: No Hx Renal Cancer: No Hx Renal Failure: No - Endocrine/Metabolic Hx Endocrine Disorders: Yes Hx Adrenal Cancer: No Hx Diabetes Insipidus: No Hx Diabetes Mellitus Type 1: No Hx Diabetes Mellitus Type 2: Yes Hx Hyperthyroidism: Yes Hx Hypothyroidism: No Hx Systemic Lupus Erythematosus: No - Hematological/Oncological Hx Blood Disorders: Yes Hx AIDS: No Hx Anemia: Yes Hx Cancer: No Hx Chemotherapy: No Hx Cirrhosis: No Hx Hemophilia: No Hx Hepatitis A: No Hx Hepatitis B: No Hx Hepatitis C: No Hx Metastasis: No Hx Shingles: No Hx Sickle Cell Disease: No Hx Unexplained Bleeding: No - Integumentary Hx Dermatological Disorder: No - Musculoskeletal/Rheumatological Hx Musculoskeletal Disorders: No Hx Arthritis: No Hx Back Pain: No Hx Degenerative Joint Disease: No Hx Falls: No Hx Fractures: No Hx Gout: No Hx Herniated Disk: No Hx Myasthenia Gravis: No Hx Osteoarthritis: No Hx Osteomyelitis: No Hx Osteoporosis: No Hx Rhabdomyolysis: No Hx Spinal Stenosis: No Hx Unsteady Gait: No - Gastrointestinal Hx Gastrointestinal Disorders: No Hx Colostomy: No Hx Crohn's Disease: No Hx Diverticulitis: No Hx Gall Bladder Disease: No Hx Gastroesophageal Reflux: No Hx Gastrointestinal Ulcer: No Hx Ileostomy: No Hx Liver Failure: No Hx Pancreatitis: No HX Swallowing Problems: No - Genitourinary/Gynecological Hx Genitourinary Disorders: Yes Hx Hematuria: No Hx Prostate Problems: No Hx Sexually Transmitted Diseases: No Hx Urinary Tract Infection: Yes - Psychiatric Hx Psychophysiologic Disorder: Yes Hx Anxiety: Yes Hx Bipolar Disorder: Yes Hx Depression: Yes Hx Emotional Abuse: No Hx Hallucinations: Yes Hx Panic Disorder: Yes Hx Post Traumatic Stress Disorder: Yes Hx Psychosis: No Hx Physical Abuse: No Hx Schizophrenia: No Hx Sexual Abuse: No Hx Substance Use: Yes - Surgical History Hx Amputation: No Hx Appendectomy: No Hx Cholecystectomy: No Hx Gastric Bypass Surgery: No Hx Hysterectomy: No Hx Joint Replacement: No Hx Kidney Transplant: No Hx Liver Transplant: No Hx Mastectomy: No Hx Musculoskeletal Surgery: No Hx Open Heart Surgery: No Hx Orthopedic Surgery: No Hx Splenectomy: No Hx Valve Replacement: No - Anesthesia Hx Anesthesia: Yes Hx Anesthesia Reactions: No Family/Social History - Physician Review Nursing Documentation Reviewed: Yes Family/Social History: No Known Family HX Smoking Status: Current Some Days Smoker Hx Alcohol Use: Yes Hx Substance Use: Yes Allergies/Home Meds Allergies/Adverse Reactions: Allergies sulfur Allergy (Uncoded 10/22/16 09:47) RASH Review of Systems - Physician Review All systems were reviewed & negative as marked: Yes - Review of Systems Constitutional: Normal. absent: Fatigue, Fevers Respiratory: Normal. absent: SOB, Cough, Sputum Cardiovascular: Palpitations. absent: Chest Pain, Edema, Calf Pain, [place] Gastrointestinal: Normal. absent: Abdominal Pain, Diarrhea, Nausea, Vomiting Genitourinary Female: Normal. absent: Dysuria, Frequency Neurological: Normal. absent: Headache, Dizziness Psychiatric: Normal Physical Exam Vital Signs Reviewed: Yes Vital Signs Temp Pulse Resp BP Pulse Ox 10/23/16 06:23 97.9 F 64 18 103/62 100 10/23/16 04:00 65 18 105/64 100 10/23/16 02:36 63 18 86/62 L 100 10/22/16 23:49 72 18 92/61 L 100 10/22/16 21:24 97.6 F 82 18 101/71 98 Temperature: Afebrile Blood Pressure: Normal Pulse: Regular Respiratory Rate: Normal Appearance: Positive for: Well-Appearing, Non-Toxic, Comfortable Pain Distress: None Mental Status: Positive for: Alert and Oriented X 3 - Systems Exam Head: Present: Atraumatic, Normocephalic Pupils: Present: PERRL Conjunctiva: Present: Normal Mouth: Present: Moist Mucous Membranes. No: Dry Respiratory/Chest: Present: Clear to Auscultation, Good Air Exchange. No: Respiratory Distress, Accessory Muscle Use Cardiovascular: Present: Regular Rate and Rhythm, Normal S1, S2. No: Murmurs Abdomen: No: Tenderness, Distention, Peritoneal Signs Upper Extremity: Present: Normal Inspection. No: Cyanosis, Edema Lower Extremity: Present: Normal Inspection. No: Edema Neurological: Present: GCS=15, CN II-XII Intact, Speech Normal, Motor Func Grossly Intact, Normal Sensory Function Skin: Present: Warm, Dry, Normal Color. No: Rashes Psychiatric: Present: Alert, Oriented x 3, Normal Insight, Normal Concentration Medical Decision Making ED Course and Treatment: 10/22/16 21:58 Impression: A 61 year old female who presents to the emergency department complaining of intermittent episodes of palpitations. Patient is currently asymptomatic. Plan: -- EKG -- Labs, cardiac enzymes -- TSH -- T4 -- Reassess and disposition Progress Notes: 10/23/16 01:15 EKG reviewed by me: NSR @ 79 bpm. Normal [place]. Normal Interval. Re-evaluation Time: 06:46 Reassessment Condition: Re-examined, Improved - Lab Interpretations I have reviewed the lab results: Yes - EKG Interpretation Interpreted by ED Physician: Yes Type: 12 lead EKG ED OBSERVATION Discharge: Yes Date of observation admission: 10/22/16 Time of observation admission: 22:00 - Observation admission statement Patient is being placed in observation because:: Palpitations - Goals of Observation Goals of observation are:: Pending labs, Chest X-ray, and reevaluation. - Progress Note Progress Note: 10/23/16 00:51 Patient is sleeping in the emergency department with stable vitals. No new complaints. 10/23/16 02:51 Patient is resting comfortably without any new complaints. Stable vitals. 10/23/16 04:51 Patient is resting comfortable with stable vitals. - Scribe Statement The provider has reviewed the documentation as recorded by the Lala Torres Provider Attestation: All medical record entries made by the Lala were at my direction and personally dictated by me. I have reviewed the chart and agree that the record accurately reflects my personal performance of the history, physical exam, medical decision making, and the department course for this patient. I have also personally directed, reviewed, and agree with the discharge instructions and disposition. Disposition/Present on Arrival - Present on Arrival Any Indicators Present on Arrival: No History of DVT/PE: No History of Uncontrolled Diabetes: No Urinary Catheter: No History of Decub. Ulcer: No History Surgical Site Infection Following: None - Disposition Have Diagnosis and Disposition been Completed?: Yes Diagnosis: Heart palpitations Disposition: HOME/ ROUTINE Disposition Time: 06:47 Patient Problems: Current Active Problems Problem Status Onset Heart palpitations Acute Condition: GOOD
[2016-10-22 22:21] LABS: ADD MANUAL DIFF? NO
[2016-10-22 22:36] LABS: ALB/GLOB RATIO 1.2 (1.1-1.8); ALKALINE PHOSPHATASE 74 U/L (38-133); ALT/SGPT 38 U/L (7-56); AST/SGOT 26 U/L (15-39); BILIRUBIN,TOTAL 0.3 mg/dL (0.2-1.3); BLOOD UREA NITROGEN 19 mg/dL (7-21); CALCIUM 9.5 mg/dL (8.4-10.5); CARBON DIOXIDE 26 mmol/L (21-33); CHLORIDE 106 mmol/L (98-107); GFR AFRICAN-AMERICAN > 60; GLUCOSE,RANDOM 95 mg/dL (70-110); POTASSIUM 4.2 mmol/L (3.6-5.0); SODIUM 139 mmol/L (132-148); TOTAL PROTEIN 6.5 g/dL (5.8-8.3)
[2016-10-22 22:39] LABS: BASO # 0.01 K/mm3 (0.0-2.0); BASO % 0.2 % (0.0-3.0); EOS # 0.2 (0.0-0.7); EOS % 2.5 % (1.5-5.0); GRAN # 3.22 (1.4-6.5); GRAN % 50.5 % (50.0-68.0); HEMATOCRIT 34.2 % (36.0-48.0); LYMPH # 2.6 (1.2-3.4); LYMPH % 40.5 % (22.0-35.0); MEAN CELL VOLUME 92.2 fL (80.0-105.0); MEAN CORPUSCULAR HGB CONC 33.6 g/dl (31.0-37.0); MEAN PLATELET VOLUME 10.3 fl (7.0-11.0); MONO # 0.4 (0.1-0.6); MONO % 6.3 % (1.0-6.0); PLATELET COUNT 224 10^3/uL (120.0-450.0); RED CELL DISTRIBUTION WIDTH 13.6 % (11.5-14.5); WHITE BLOOD COUNT 6.4 10^3/ul (4.5-11.0)
[2016-10-22 22:53] LABS: T4 7.5 ug/dL (5.5-11.0)
[2016-10-22 22:55] LABS: TROPONIN I < 0.01 ng/mL
[2016-10-22 23:06] LABS: THYROID STIMULATING HORMONE 1.2 mIU/mL (0.46-4.68)
[2016-10-22 23:50] VITALS: O2SAT 100
[2016-10-23 06:34] VITALS: BP 103/62; PULSE 64; TEMP 97.9
--- NOTE | 2016-10-23 23:00 | CARD ---
APPROVED REPORT EKG Measurement Heart [id number] <Conclusion> Normal sinus rhythm Normal ECG
== END 2016-10-23 06:50 | disposition home or self-care (01) ==
LOC: ED 20:42 → EROBSV 22:12
PROVIDERS: ADMIT Emergency Medicine; ATTEND Emergency Medicine
DX: R00.2 Palpitations (principal); E11.9 Type 2 diabetes mellitus without complications; E05.90 Thyrotoxicosis, unspecified without thyrotoxic crisis or storm; I10 Essential (primary) hypertension
CPT/HCPCS: 80053; 82550; 83615; 84436; 84443; 84484; 85025; 93005; 99285; G0378

== ENCOUNTER 2016-10-23 20:14 | Emergency (ER) | payer MEDICAID ==
[2016-10-23 20:28] VITALS: BP 126/83; PULSE 86; TEMP 98.2; BMI 18.7
[2016-10-23 20:32] VITALS: RESP 16; O2SAT 98
--- NOTE | 2016-10-23 20:53 | ED PDOC ---
Arrival/HPI - General Historian: Patient - History of Present Illness Time/Duration: 4-6 hours Symptom Onset: Gradual Symptom Course: Unchanged Quality: Throbbing Severity Level: 4 Activities at Onset: Rest Context: Home <Romina Carlton - Last Filed: 10/23/16 23:25> <WendieAlexander jimenez - Last Filed: 10/23/16 23:54> - General Chief Complaint: Dizziness/Lightheaded Time Seen by Provider: 10/23/16 20:27 - History of Present Illness Narrative History of Present Illness (Text): 10/23/16 20:51 This is a 61Y F with PMH HLD, COPD, pneumonia, DM, bronchitis who came to the ED for palpitations since this morning. She reports she has been feeling anxious. The patient is noted to be a poor historian. She denies having any pain , but reports having nausea and abdominal pain. She denies fever, chills, numbness/tingling, headache, or vision changes. It is noted that she was admitted for chest pain last week. Echo and stress test noted to be essentially normal. She also has been to the ED twice this week for chest palpitations. Cardiac work up was negative. (Romina Carlton) Past Medical History - Provider Review Nursing Documentation Reviewed: Yes - Infectious Disease Hx of Infectious Diseases: None - Cardiac Hx Cardiac Disorders: Yes Hx Hypertension: Yes - Pulmonary Hx Respiratory Disorders: Yes Hx Bronchitis: Yes Hx Chronic Obstructive Pulmonary Disease (COPD): Yes Hx Emphysema: Yes Hx Pneumonia: Yes Hx Respiratory Aspiration: No Hx Respiratory Tract Infection: Yes Hx Sleep Apnea: No Hx Tuberculosis: No - Neurological Hx Neurological Disorder: Yes Hx Alzheimer's Disease: No HX Cerebrovascular Accident: No Hx Dementia: No Hx Dizziness: Yes Hx Meningitis: No Hx Migraine: Yes Hx Parkinson's Disease: No Hx Seizures: No Hx Transient Ischemic Attacks (TIA): No - HEENT Hx HEENT Disorder: Yes (blurred vision) Hx Blind: No Hx Cataracts: No Hx Deafness: No Hx Difficulty Chewing: No Hx Epistaxis: Yes Hx Glaucoma: No Hx Macular Degeneration: No - Renal Hx Renal Disorder: No Hx Dialysis: No Hx Kidney Stones: No Hx Neurogenic Bladder: No Hx Pyelonephritis: No Hx Renal Cancer: No Hx Renal Failure: No - Endocrine/Metabolic Hx Endocrine Disorders: Yes Hx Adrenal Cancer: No Hx Diabetes Insipidus: No Hx Diabetes Mellitus Type 1: No Hx Diabetes Mellitus Type 2: Yes Hx Hyperthyroidism: Yes Hx Hypothyroidism: No Hx Systemic Lupus Erythematosus: No - Hematological/Oncological Hx Blood Disorders: Yes Hx AIDS: No Hx Anemia: Yes Hx Cancer: No Hx Chemotherapy: No Hx Cirrhosis: No Hx Hemophilia: No Hx Hepatitis A: No Hx Hepatitis B: No Hx Hepatitis C: No Hx Metastasis: No Hx Shingles: No Hx Sickle Cell Disease: No Hx Unexplained Bleeding: No - Integumentary Hx Dermatological Disorder: No - Musculoskeletal/Rheumatological Hx Musculoskeletal Disorders: No Hx Arthritis: No Hx Back Pain: No Hx Degenerative Joint Disease: No Hx Falls: No Hx Fractures: No Hx Gout: No Hx Herniated Disk: No Hx Myasthenia Gravis: No Hx Osteoarthritis: No Hx Osteomyelitis: No Hx Osteoporosis: No Hx Rhabdomyolysis: No Hx Spinal Stenosis: No Hx Unsteady Gait: No - Gastrointestinal Hx Gastrointestinal Disorders: No Hx Colostomy: No Hx Crohn's Disease: No Hx Diverticulitis: No Hx Gall Bladder Disease: No Hx Gastroesophageal Reflux: No Hx Gastrointestinal Ulcer: No Hx Ileostomy: No Hx Liver Failure: No Hx Pancreatitis: No HX Swallowing Problems: No - Genitourinary/Gynecological Hx Genitourinary Disorders: Yes Hx Hematuria: No Hx Prostate Problems: No Hx Sexually Transmitted Diseases: No Hx Urinary Tract Infection: Yes - Psychiatric Hx Psychophysiologic Disorder: Yes Hx Anxiety: Yes Hx Bipolar Disorder: Yes Hx Depression: Yes Hx Emotional Abuse: No Hx Hallucinations: Yes Hx Panic Disorder: Yes Hx Post Traumatic Stress Disorder: Yes Hx Psychosis: No Hx Physical Abuse: No Hx Schizophrenia: No Hx Sexual Abuse: No Hx Substance Use: Yes - Surgical History Hx Amputation: No Hx Appendectomy: No Hx Cholecystectomy: No Hx Gastric Bypass Surgery: No Hx Hysterectomy: No Hx Joint Replacement: No Hx Kidney Transplant: No Hx Liver Transplant: No Hx Mastectomy: No Hx Musculoskeletal Surgery: No Hx Open Heart Surgery: No Hx Orthopedic Surgery: No Hx Splenectomy: No Hx Valve Replacement: No - Anesthesia Hx Anesthesia: Yes Hx Anesthesia Reactions: No <Romina Carlton - Last Filed: 10/23/16 23:25> Family/Social History - Physician Review Nursing Documentation Reviewed: Yes Family/Social History: Diabetes, Hypertension Smoking Status: Current Some Days Smoker Hx Alcohol Use: Yes Hx Substance Use: Yes <Romina Carlton - Last Filed: 10/23/16 23:25> Allergies/Home Meds <Romina Carlton - Last Filed: 10/23/16 23:25> <Alexander Pressley - Last Filed: 10/23/16 23:54> Allergies/Adverse Reactions: Allergies Penicillins Allergy (Verified 10/23/16 20:28) RASH sulfur Allergy (Uncoded 10/22/16 09:47) RASH Review of Systems - Review of Systems Constitutional: Normal. absent: Fevers, Night Sweats Eyes: Normal ENT: Normal Respiratory: Normal. absent: SOB, Cough, Wheezing Cardiovascular: Palpitations. absent: Chest Pain, Edema, Syncope Gastrointestinal: Abdominal Pain, Nausea. absent: Constipation, Diarrhea, Vomiting Musculoskeletal: Normal Skin: Normal Neurological: Normal. absent: Headache, Dizziness Endocrine: Normal Psychiatric: Anxiety <Romina Carlton - Last Filed: 10/23/16 23:25> Physical Exam Vital Signs Reviewed: Yes Temperature: Afebrile Blood Pressure: Normal Pulse: Regular Respiratory Rate: Normal Appearance: Positive for: Well-Appearing, Non-Toxic, Comfortable Pain Distress: None Mental Status: Positive for: Alert and Oriented X 3 - Systems Exam Head: Present: Atraumatic, Normocephalic Pupils: Present: PERRL Extroacular Muscles: Present: EOMI Conjunctiva: Present: Normal Mouth: Present: Moist Mucous Membranes Neck: Present: Normal Range of Motion Respiratory/Chest: Present: Clear to Auscultation, Good Air Exchange. No: Respiratory Distress, Accessory Muscle Use, Decreased Breath Sounds Cardiovascular: Present: Regular Rate and Rhythm, Normal S1, S2. No: Murmurs, Rub, Gallop Abdomen: Present: Normal Bowel Sounds. No: Tenderness, Distention Upper Extremity: Present: Normal Inspection. No: Edema Lower Extremity: Present: Normal Inspection. No: Edema Neurological: Present: GCS=15, CN II-XII Intact Skin: Present: Warm, Dry Psychiatric: Present: Alert, Oriented x 3 <Romina Carlton - Last Filed: 10/23/16 23:25> Medical Decision Making Re-evaluation Time: 23:07 Reassessment Condition: Improved - Lab Interpretations I have reviewed the lab results: Yes Interpretation: All labs normal - EKG Interpretation Interpreted by ED Physician: Yes Type: 12 lead EKG Comparison: Similar to previous EKG <Romina Carlton - Last Filed: 10/23/16 23:25> - Lab Interpretations I have reviewed the lab results: Yes - EKG Interpretation Interpreted by ED Physician: Yes Type: 12 lead EKG <Alexander Pressley - Last Filed: 10/23/16 23:54> ED Course and Treatment: 10/23/16 20:55 Impression: This is a 61Y F with PMH HLD, COPD, bronchitis and pneumonia who came to the ED for palpitations since this AM. Differential Diagnosis: -- anxiety, costochondritis, angina Plan: -- EKG -- CMP, Troponin -- Reassess and disposition Prior Visits: Notes and results from previous visits were reviewed. 10/23/16 23:09 Progress Note: Patient re-examined and reports palpitations have improved. 10/23/16 23:23 Labs were reviewed and within normal limits. (Romina Carlton) Impression: Pt seen and evaluated with medical information officer. Pt, whose past medical history includes hyperlipidemia, pneumonia, diabetes, and bronchitis, who presented for palpitations since this morning with nausea and abdominal pain since this morning. Patient notes she has feeling anxious. Aware and agree with HPI, clinical findings, plan, and management. Plan: -- EKG -- Labs, troponin -- Reassess and disposition Progress Notes: (Alexander Pressley) - Lab Interpretations Lab Results: 10/23/16 22:32 Lab Results 10/23/16 22:32: Sodium 137, Potassium 4.5, Chloride 104, Carbon Dioxide 28, Anion Gap 10, BUN 17, Creatinine 0.7, Est GFR ( Amer) > 60, Est GFR (Non- Af Amer) > 60, Random Glucose 92, Calcium 9.5, Total Bilirubin 0.3, AST 27, ALT 40, Alkaline Phosphatase 61, Troponin I < 0.01, Total Protein 6.7, Albumin 3.8, Globulin 2.9, Albumin/Globulin Ratio 1.3 - EKG Interpretation EKG Interpretation (Text): 10/23/16 21:02 NSR (Romina Carlton) - PA / [employer] / Resident Statement / has reviewed & agrees with the documentation as recorded. / has examined the patient and agrees with the treatment plan. <Alexander Pressley - Last Filed: 10/23/16 23:54> Disposition/Present on Arrival - Present on Arrival Any Indicators Present on Arrival: No History of DVT/PE: No History of Uncontrolled Diabetes: No Urinary Catheter: No History of Decub. Ulcer: No History Surgical Site Infection Following: None - Disposition Have Diagnosis and Disposition been Completed?: Yes Disposition Time: 23:09 Patient Plan: Discharge <Romina Carlton - Last Filed: 10/23/16 23:25> <Alexander Pressley - Last Filed: 10/23/16 23:54> - Disposition Diagnosis: Heart palpitations, Anxiety Disposition: HOME/ ROUTINE Patient Problems: Current Active Problems Problem Status Onset Anxiety Acute Heart palpitations Acute Condition: GOOD Discharge Instructions (ExitCare): Palpitations (ED), Anxiety (ED) Print Language: TELUGU Additional Instructions: Michelle, thank you for letting us take care of you today. Your provider was Dr. Carlton. You were treated for heart palpitations secondary to anxiety. The emergency medical care you received today was directed at your acute symptoms. If you were prescribed any medication, please fill it and take as directed. It may take several days for your symptoms to resolve. Return to the Emergency Department if your symptoms worsen, do not improve, or if you have any other problems. Please contact your doctor or call one of the physicians/clinics you have been referred to that are listed on the Patient Visit Information form that is included in your discharge packet. Bring any paperwork you were given at discharge with you along with any medications you are taking to your follow up visit. Our treatment cannot replace ongoing medical care by a primary care provider (PCP) outside of the emergency department. Thank you for allowing the [facility] team to be part of your care today. If you had an X-Ray or CT scan: A Radiologist will review the ED reading if any change in treatment is needed we will contact you. If you had a blood, urine, or wound culture: It will take several days for the results, if any change in treatment is needed we will contact you. If you had an STI test: It will take 48 hours for the results. Please call after 1 week if you have not heard back. Referrals: Rex Bolanos MD [Primary Care Provider] - Follow up with primary Forms: [facility] (Tai[place]ese)
[2016-10-23 23:08] LABS: ALB/GLOB RATIO 1.3 (1.1-1.8); ALKALINE PHOSPHATASE 61 U/L (38-133); ALT/SGPT 40 U/L (7-56); AST/SGOT 27 U/L (15-39); BILIRUBIN,TOTAL 0.3 mg/dL (0.2-1.3); BLOOD UREA NITROGEN 17 mg/dL (7-21); CALCIUM 9.5 mg/dL (8.4-10.5); CARBON DIOXIDE 28 mmol/L (21-33); CHLORIDE 104 mmol/L (98-107); GFR AFRICAN-AMERICAN > 60; GLUCOSE,RANDOM 92 mg/dL (70-110); POTASSIUM 4.5 mmol/L (3.6-5.0); SODIUM 137 mmol/L (132-148); TOTAL PROTEIN 6.7 g/dL (5.8-8.3)
[2016-10-23 23:21] LABS: TROPONIN I < 0.01 ng/mL
--- NOTE | 2016-10-24 16:32 | CARD ---
APPROVED REPORT EKG Measurement Heart [id number] <Conclusion> Normal sinus rhythm Normal ECG
== END 2016-10-24 00:05 | disposition home or self-care (01) ==
LOC: ED 20:14
DX: F41.9 Anxiety disorder, unspecified (principal); R00.2 Palpitations; E78.5 Hyperlipidemia, unspecified; E11.9 Type 2 diabetes mellitus without complications

== ENCOUNTER 2016-10-24 08:50 | Emergency (ER) | payer MEDICAID ==
[2016-10-24 08:57] VITALS: BMI 21.1
[2016-10-24 09:07] VITALS: TEMP 98.1; O2SAT 97
--- NOTE | 2016-10-24 09:21 | ED PDOC ---
Arrival/HPI - General Chief Complaint: Palpitations Time Seen by Provider: 10/24/16 09:06 - History of Present Illness Narrative History of Present Illness (Text): 10/24/16 09:31 Mandy Martinez is a 61 year old female, whose past medical history includes hypertension, diabetes, COPD, bronchitis and anxiety, presents to the emergency department for evaluation of intermittent episodes of palpitations for past few weeks. Patient was evaluated at [facility] numerous times over the past week for similar symptoms and was discharged home after normal EKG and unremarkable labs. She was previously admitted for the same symptoms initially and had negative enzymes, stress test, and echo. States she is currently asymptomatic. She states she went to Dr. Bolanos's office this morning but he was not there. She states she did not call to make an appointment, however. Denies fever , chills, headache, dizziness, chest pain, shortness of breath, abdominal pain, nausea, vomiting, diarrhea, urinary symptoms, or any other complaints at this time. PMD:Dr. Bolanos. Time/Duration: < week Symptom Course: Intermittent Severity Level: Mild Activities at Onset: Light Past Medical History - Provider Review Nursing Documentation Reviewed: Yes - Infectious Disease Hx of Infectious Diseases: None - Reproductive Menopause: Yes - Cardiac Hx Cardiac Disorders: Yes Hx Hypertension: Yes - Pulmonary Hx Respiratory Disorders: Yes Hx Bronchitis: Yes Hx Chronic Obstructive Pulmonary Disease (COPD): Yes Hx Emphysema: Yes Hx Pneumonia: Yes Hx Respiratory Tract Infection: Yes - Neurological Hx Neurological Disorder: Yes Hx Dizziness: Yes Hx Migraine: Yes - HEENT Hx HEENT Disorder: Yes (blurred vision) Hx Epistaxis: Yes - Renal Hx Renal Disorder: No - Endocrine/Metabolic Hx Endocrine Disorders: Yes Hx Diabetes Mellitus Type 2: Yes Hx Hyperthyroidism: Yes - Hematological/Oncological Hx Blood Disorders: Yes Hx AIDS: No Hx Anemia: Yes - Integumentary Hx Dermatological Disorder: No - Musculoskeletal/Rheumatological Hx Musculoskeletal Disorders: No Hx Arthritis: No Hx Back Pain: No Hx Degenerative Joint Disease: No Hx Falls: No Hx Fractures: No Hx Gout: No Hx Herniated Disk: No Hx Myasthenia Gravis: No Hx Osteoarthritis: No Hx Osteomyelitis: No Hx Osteoporosis: No Hx Rhabdomyolysis: No Hx Spinal Stenosis: No Hx Unsteady Gait: No - Gastrointestinal Hx Gastrointestinal Disorders: No Hx Colostomy: No Hx Crohn's Disease: No Hx Diverticulitis: No Hx Gall Bladder Disease: No Hx Gastroesophageal Reflux: No Hx Gastrointestinal Ulcer: No Hx Ileostomy: No Hx Liver Failure: No Hx Pancreatitis: No HX Swallowing Problems: No - Genitourinary/Gynecological Hx Genitourinary Disorders: Yes Hx Hematuria: No Hx Prostate Problems: No Hx Sexually Transmitted Diseases: No Hx Urinary Tract Infection: Yes - Psychiatric Hx Psychophysiologic Disorder: Yes Hx Anxiety: Yes Hx Bipolar Disorder: Yes Hx Depression: Yes Hx Emotional Abuse: No Hx Hallucinations: Yes Hx Panic Disorder: Yes Hx Post Traumatic Stress Disorder: Yes Hx Psychosis: No Hx Physical Abuse: No Hx Schizophrenia: No Hx Sexual Abuse: No Hx Substance Use: Yes - Surgical History Hx Amputation: No Hx Appendectomy: No Hx Cholecystectomy: No Hx Gastric Bypass Surgery: No Hx Hysterectomy: No Hx Joint Replacement: No Hx Kidney Transplant: No Hx Liver Transplant: No Hx Mastectomy: No Hx Musculoskeletal Surgery: No Hx Open Heart Surgery: No Hx Orthopedic Surgery: No Hx Splenectomy: No Hx Valve Replacement: No - Anesthesia Hx Anesthesia: Yes Hx Anesthesia Reactions: No Hx Malignant Hyperthermia: No Family/Social History - Physician Review Nursing Documentation Reviewed: Yes Family/Social History: No Known Family HX Smoking Status: Former Smoker Hx Alcohol Use: Yes Hx Substance Use: Yes Allergies/Home Meds Allergies/Adverse Reactions: Allergies Penicillins Allergy (Verified 10/23/16 20:28) RASH sulfur Allergy (Uncoded 10/22/16 09:47) RASH Review of Systems - Physician Review All systems were reviewed & negative as marked: Yes - Review of Systems Constitutional: absent: Normal, Fatigue, Fevers Cardiovascular: Palpitations. absent: Chest Pain, Edema, Calf Pain Gastrointestinal: Normal. absent: Abdominal Pain, Diarrhea, Nausea, Vomiting Genitourinary Female: Normal Neurological: Normal. absent: Headache, Dizziness Psychiatric: Normal Physical Exam - Physical Exam Narrative Physical Exam (Text): Constitutional: No acute distress. Head: Normocephalic. Atraumatic. Eyes: PERRL. ENT: Moist mucous membranes. Neck: Supple. Cardiovascular: Regular rate. Chest: No tenderness. Respiratory: Clear to auscultation bilaterally. GI: Soft. Nontender. Nondistended. Back: No CVA tenderness. Musculoskeletal: No tenderness or swelling of extremities. Skin: No rash. Neurologic: Alert, no focal deficit. Vital Signs Reviewed: Yes Vital Signs Temp Pulse Resp BP Pulse Ox 10/24/16 09:54 65 16 101/63 97 10/24/16 08:50 98.1 F 79 23 91/58 L 97 Temperature: Afebrile Blood Pressure: Normal Pulse: Regular Respiratory Rate: Normal Appearance: Positive for: Well-Appearing, Non-Toxic, Comfortable Pain Distress: None Mental Status: Positive for: Alert and Oriented X 3 Medical Decision Making ED Course and Treatment: 10/24/16 09:37 Impression: A 61 year old female who presents to the emergency department complaining of intermittent episodes of palpitations for past few days. Progress Notes: 10/24/16 09:37 Patient was seen at emergency department yesterday for similar complaints and was discharged home after labs were within normal limits. Patient states she is currently asymptomatic and denies any complaints. I have strongly advised her to follow up with within few days by calling the office to make an appointment. . Advised to present to emergency department for new or worsening symptoms. EKG NSR 80 bpm, no ST/T wave changes. - Scribe Statement The provider has reviewed the documentation as recorded by the Lala Torres Provider Attestation: All medical record entries made by the Tioibviviana were at my direction and personally dictated by me. I have reviewed the chart and agree that the record accurately reflects my personal performance of the history, physical exam, medical decision making, and the department course for this patient. I have also personally directed, reviewed, and agree with the discharge instructions and disposition. Disposition/Present on Arrival - Present on Arrival Any Indicators Present on Arrival: No History of DVT/PE: No History of Uncontrolled Diabetes: No Urinary Catheter: No History of Decub. Ulcer: No History Surgical Site Infection Following: None - Disposition Have Diagnosis and Disposition been Completed?: Yes Diagnosis: Heart palpitations Disposition: HOME/ ROUTINE Disposition Time: 09:20 Patient Plan: Discharge Condition: STABLE Discharge Instructions (ExitCare): Palpitations (ED) Referrals: Rex Bolanos MD [Primary Care Provider] - Follow up with primary
[2016-10-24 09:55] VITALS: BP 101/63; PULSE 65; RESP 16
--- NOTE | 2016-10-24 16:23 | CARD ---
APPROVED REPORT EKG Measurement Heart [id number] <Conclusion> Normal sinus rhythm Normal ECG
== END 2016-10-24 09:55 | disposition home or self-care (01) ==
LOC: ED 08:50
DX: R00.2 Palpitations (principal)

== ENCOUNTER 2016-11-05 22:57 | Observation (INO) | payer MEDICAID ==
[2016-11-05 22:57] VITALS: BMI 21.1
[2016-11-05 23:24] VITALS: RESP 16
--- NOTE | 2016-11-05 23:46 | ED PDOC ---
Arrival/HPI - General Chief Complaint: Palpitations Time Seen by Provider: 11/05/16 22:59 Historian: Patient - History of Present Illness Narrative History of Present Illness (Text): 11/05/16 23:46 Mandy Martinez is a 61 year old female, whose past medical history includes hypertension, diabetes, COPD, bronchitis and anxiety, presents to the emergency department complaining of palpitations. States she drank a cup of decaffeinated coffee after which the symptoms presented. Patient is currently asymptomatic. Denies any chest pain, difficulty breathing, nausea, vomiting, diarrhea, urinary symptoms, or any other complaints at this time. Time/Duration: 1-3 hours Symptom Course: Resolved Severity Level: Mild Activities at Onset: Light Past Medical History - Provider Review Nursing Documentation Reviewed: Yes - Infectious Disease Hx of Infectious Diseases: None - Cardiac Hx Cardiac Disorders: Yes Hx Hypertension: Yes - Pulmonary Hx Respiratory Disorders: Yes Hx Bronchitis: Yes Hx Chronic Obstructive Pulmonary Disease (COPD): Yes Hx Emphysema: Yes Hx Pneumonia: Yes Hx Respiratory Tract Infection: Yes - Neurological Hx Neurological Disorder: Yes Hx Dizziness: Yes Hx Migraine: Yes - HEENT Hx HEENT Disorder: Yes (blurred vision) Hx Epistaxis: Yes - Renal Hx Renal Disorder: No - Endocrine/Metabolic Hx Endocrine Disorders: Yes Hx Diabetes Mellitus Type 2: Yes Hx Hyperthyroidism: Yes - Hematological/Oncological Hx Blood Disorders: Yes Hx AIDS: No Hx Anemia: Yes - Integumentary Hx Dermatological Disorder: No - Musculoskeletal/Rheumatological Hx Musculoskeletal Disorders: No Hx Arthritis: No Hx Back Pain: No Hx Degenerative Joint Disease: No Hx Falls: No Hx Fractures: No Hx Gout: No Hx Herniated Disk: No Hx Myasthenia Gravis: No Hx Osteoarthritis: No Hx Osteomyelitis: No Hx Osteoporosis: No Hx Rhabdomyolysis: No Hx Spinal Stenosis: No Hx Unsteady Gait: No - Gastrointestinal Hx Gastrointestinal Disorders: No Hx Colostomy: No Hx Crohn's Disease: No Hx Diverticulitis: No Hx Gall Bladder Disease: No Hx Gastroesophageal Reflux: No Hx Gastrointestinal Ulcer: No Hx Ileostomy: No Hx Liver Failure: No Hx Pancreatitis: No HX Swallowing Problems: No - Genitourinary/Gynecological Hx Genitourinary Disorders: Yes Hx Hematuria: No Hx Prostate Problems: No Hx Sexually Transmitted Diseases: No Hx Urinary Tract Infection: Yes - Psychiatric Hx Psychophysiologic Disorder: Yes Hx Anxiety: Yes Hx Bipolar Disorder: Yes Hx Depression: Yes Hx Emotional Abuse: No Hx Hallucinations: Yes Hx Panic Disorder: Yes Hx Post Traumatic Stress Disorder: Yes Hx Psychosis: No Hx Physical Abuse: No Hx Schizophrenia: No Hx Sexual Abuse: No Hx Substance Use: Yes - Surgical History Hx Amputation: No Hx Appendectomy: No Hx Cholecystectomy: No Hx Gastric Bypass Surgery: No Hx Hysterectomy: No Hx Joint Replacement: No Hx Kidney Transplant: No Hx Liver Transplant: No Hx Mastectomy: No Hx Musculoskeletal Surgery: No Hx Open Heart Surgery: No Hx Orthopedic Surgery: No Hx Splenectomy: No Hx Valve Replacement: No - Anesthesia Hx Anesthesia: Yes Hx Anesthesia Reactions: No Hx Malignant Hyperthermia: No Family/Social History - Physician Review Nursing Documentation Reviewed: Yes Family/Social History: No Known Family HX Smoking Status: Former Smoker Hx Alcohol Use: Yes Hx Substance Use: Yes Allergies/Home Meds Allergies/Adverse Reactions: Allergies Penicillins Allergy (Verified 10/23/16 20:28) RASH sulfur Allergy (Uncoded 10/22/16 09:47) RASH Review of Systems - Physician Review All systems were reviewed & negative as marked: Yes - Review of Systems Constitutional: Normal. absent: Fatigue, Fevers Eyes: Normal. absent: Vision Changes, Photophobia Cardiovascular: Palpitations. absent: Chest Pain Gastrointestinal: Normal. absent: Abdominal Pain, Diarrhea, Nausea, Vomiting Genitourinary Female: Normal Musculoskeletal: Normal Psychiatric: Normal Physical Exam Vital Signs Reviewed: Yes Vital Signs Pulse Resp BP Pulse Ox 11/06/16 03:00 63 16 101/51 L 100 11/06/16 01:00 62 16 96/65 L 98 11/05/16 23:23 64 16 102/66 98 Temperature: Afebrile Blood Pressure: Normal Pulse: Regular Respiratory Rate: Normal Appearance: Positive for: Well-Appearing, Non-Toxic, Comfortable Pain Distress: None Mental Status: Positive for: Alert and Oriented X 3 - Systems Exam Head: Present: Atraumatic, Normocephalic Pupils: Present: PERRL Extroacular Muscles: Present: EOMI Conjunctiva: Present: Normal Respiratory/Chest: Present: Clear to Auscultation, Good Air Exchange. No: Respiratory Distress, Accessory Muscle Use Cardiovascular: Present: Regular Rate and Rhythm, Normal S1, S2. No: Murmurs Abdomen: Present: Normal Bowel Sounds. No: Tenderness, Distention, Peritoneal Signs, Rebound, Guarding Upper Extremity: Present: Normal Inspection. No: Cyanosis, Edema Lower Extremity: Present: Normal Inspection. No: Edema Neurological: Present: GCS=15, CN II-XII Intact, Speech Normal, Motor Func Grossly Intact, Normal Sensory Function Skin: Present: Warm, Dry, Normal Color. No: Rashes Psychiatric: Present: Alert, Oriented x 3, Normal Insight, Normal Concentration Medical Decision Making ED Course and Treatment: 11/05/16 23:51 Impression: A 61 year old female who presents to the emergency department complaining of palpitations. Plan: -- EKG -- Labs, cardiac enzymes -- Reassess and disposition Progress Notes: 11/05/16 23:53 EKG reviewed by me: NSR @ 68 bpm. Normal axis. Normal interval. 11/06/16 05:58 pt monitered in ed no evidence of arrhythmia will dc - Lab Interpretations Lab Results: 11/05/16 00:01 Lab Results 11/05/16 00:01: WBC 8.2 D, RBC 3.87, Hgb 12.1, Hct 35.7 L, MCV 92.2, MCH 31.3, MCHC 33.9, RDW 13.5, Plt Count 252, MPV 10.6, Gran % 47.4 L, Lymph % (Auto) 43.7 H, [place] % (Auto) 5.0, Eos % (Auto) 3.5, Baso % (Auto) 0.4, Gran # 3.87, Lymph # 3.6 H, [place] # 0.4, Eos # 0.3, Baso # 0.03 I have reviewed the lab results: Yes - EKG Interpretation Interpreted by ED Physician: Yes Type: 12 lead EKG ED OBSERVATION Discharge: Yes Date of observation admission: 11/05/16 Time of observation admission: 23:50 - Observation admission statement Patient is being placed in observation because:: palpitations - Goals of Observation Goals of observation are:: Observation for palpitations - Progress Note Progress Note: 11/06/16 01:50 Patient resting comfortably with stable vitals. 11/06/16 03:50 Patient in no acute distress. Sleeping with stable vitals. - Scribe Statement The provider has reviewed the documentation as recorded by the Lala Torres Provider Attestation: All medical record entries made by the Lala were at my direction and personally dictated by me. I have reviewed the chart and agree that the record accurately reflects my personal performance of the history, physical exam, medical decision making, and the department course for this patient. I have also personally directed, reviewed, and agree with the discharge instructions and disposition. Disposition/Present on Arrival - Present on Arrival Any Indicators Present on Arrival: No History of DVT/PE: No History of Uncontrolled Diabetes: No Urinary Catheter: No History of Decub. Ulcer: No History Surgical Site Infection Following: None - Disposition Have Diagnosis and Disposition been Completed?: Yes Diagnosis: Heart palpitations Disposition: HOME/ ROUTINE Disposition Time: 05:59 Condition: GOOD
[2016-11-06 00:27] LABS: ADD MANUAL DIFF? NO
[2016-11-06 00:34] LABS: BASO # 0.03 K/mm3 (0.0-2.0); BASO % 0.4 % (0.0-3.0); EOS # 0.3 (0.0-0.7); EOS % 3.5 % (1.5-5.0); GRAN # 3.87 (1.4-6.5); GRAN % 47.4 % (50.0-68.0); HEMATOCRIT 35.7 % (36.0-48.0); LYMPH # 3.6 (1.2-3.4); LYMPH % 43.7 % (22.0-35.0); MEAN CELL VOLUME 92.2 fL (80.0-105.0); MEAN CORPUSCULAR HEMOGLOBIN 31.3 pg (25.0-35.0); MEAN CORPUSCULAR HGB CONC 33.9 g/dl (31.0-37.0); MEAN PLATELET VOLUME 10.6 fl (7.0-11.0); MONO # 0.4 (0.1-0.6); PLATELET COUNT 252 10^3/uL (120.0-450.0); RED CELL DISTRIBUTION WIDTH 13.5 % (11.5-14.5); WHITE BLOOD COUNT 8.2 10^3/ul (4.5-11.0)
[2016-11-06 00:52] LABS: ALB/GLOB RATIO 1.5 (1.1-1.8); ALKALINE PHOSPHATASE 91 U/L (38-133); ALT/SGPT 55 U/L (7-56); AST/SGOT 40 U/L (15-39); BILIRUBIN,TOTAL 0.3 mg/dL (0.2-1.3); BLOOD UREA NITROGEN 15 mg/dL (7-21); CARBON DIOXIDE 26 mmol/L (21-33); CHLORIDE 105 mmol/L (98-107); GFR AFRICAN-AMERICAN > 60; GLUCOSE,RANDOM 86 mg/dL (70-110); POTASSIUM 3.9 mmol/L (3.6-5.0); SODIUM 137 mmol/L (132-148); TOTAL PROTEIN 6.4 g/dL (5.8-8.3)
[2016-11-06 01:05] LABS: TROPONIN I < 0.01 ng/mL
[2016-11-06 06:14] VITALS: BP 100/71; PULSE 61; O2SAT 96
--- NOTE | 2016-11-07 01:43 | CARD ---
APPROVED REPORT EKG Measurement Heart [id number] CT [id number] <Conclusion> Normal sinus rhythm Normal ECG
== END 2016-11-06 06:00 | disposition home or self-care (01) ==
LOC: ED 22:57 → EROBSV 23:50
PROVIDERS: ADMIT Emergency Medicine; ATTEND Emergency Medicine
DX: R00.2 Palpitations (principal); Z87.891 Personal history of nicotine dependence; E11.9 Type 2 diabetes mellitus without complications; I10 Essential (primary) hypertension
CPT/HCPCS: 36415; 80053; 82550; 83615; 84484; 85025; 93005; 99284; G0378

== ENCOUNTER 2016-12-07 18:48 | Emergency (ER) | payer MEDICAID ==
[2016-12-07 19:23] VITALS: BMI 21.4
[2016-12-07 19:27] VITALS: TEMP 98.5
--- NOTE | 2016-12-07 20:15 | ED PDOC ---
Arrival/HPI - General Chief Complaint: Abnormal Skin Integrity Time Seen by Provider: 12/07/16 19:47 Historian: Patient - History of Present Illness Narrative History of Present Illness (Text): 12/07/16 20:16 61 yo F presents to the emergency room complaining of one-week history of red nodular pruritic rash mostly to her lower extremities. Denies fever, chills, URI symptoms, sore throat, vomiting, diarrhea, urinary symptoms, new meds, new food, changes in soaps and lotions. Patient reports that she went to an urgent care clinic to be evaluated for the following symptoms and was prescribed a steroid cream and mupirocin without improvement. PMD Guerra Past Medical History - Provider Review Nursing Documentation Reviewed: Yes - Infectious Disease Hx of Infectious Diseases: None - Reproductive Menopause: Yes - Cardiac Hx Cardiac Disorders: Yes Hx Hypertension: Yes - Pulmonary Hx Respiratory Disorders: Yes Hx Bronchitis: Yes Hx Chronic Obstructive Pulmonary Disease (COPD): Yes Hx Emphysema: Yes Hx Pneumonia: Yes Hx Respiratory Tract Infection: Yes - Neurological Hx Neurological Disorder: Yes Hx Dizziness: Yes Hx Migraine: Yes - HEENT Hx HEENT Disorder: Yes (blurred vision) Hx Epistaxis: Yes - Renal Hx Renal Disorder: No - Endocrine/Metabolic Hx Endocrine Disorders: Yes Hx Diabetes Mellitus Type 2: Yes (hx of) Hx Hyperthyroidism: Yes - Hematological/Oncological Hx Blood Disorders: Yes Hx AIDS: No Hx Anemia: Yes - Integumentary Hx Dermatological Disorder: No - Musculoskeletal/Rheumatological Hx Musculoskeletal Disorders: No Hx Arthritis: No Hx Back Pain: No Hx Degenerative Joint Disease: No Hx Falls: No Hx Fractures: No Hx Gout: No Hx Herniated Disk: No Hx Myasthenia Gravis: No Hx Osteoarthritis: No Hx Osteomyelitis: No Hx Osteoporosis: No Hx Rhabdomyolysis: No Hx Spinal Stenosis: No Hx Unsteady Gait: No - Gastrointestinal Hx Gastrointestinal Disorders: No Hx Colostomy: No Hx Crohn's Disease: No Hx Diverticulitis: No Hx Gall Bladder Disease: No Hx Gastroesophageal Reflux: No Hx Gastrointestinal Ulcer: No Hx Ileostomy: No Hx Liver Failure: No Hx Pancreatitis: No HX Swallowing Problems: No - Genitourinary/Gynecological Hx Genitourinary Disorders: Yes Hx Hematuria: No Hx Prostate Problems: No Hx Sexually Transmitted Diseases: No Hx Urinary Tract Infection: Yes - Psychiatric Hx Psychophysiologic Disorder: Yes Hx Anxiety: Yes Hx Bipolar Disorder: Yes Hx Depression: Yes Hx Emotional Abuse: No Hx Hallucinations: Yes Hx Panic Disorder: Yes Hx Post Traumatic Stress Disorder: Yes Hx Psychosis: No Hx Physical Abuse: No Hx Schizophrenia: No Hx Sexual Abuse: No Hx Substance Use: Yes - Surgical History Hx Amputation: No Hx Appendectomy: No Hx Cholecystectomy: No Hx Gastric Bypass Surgery: No Hx Hysterectomy: No Hx Joint Replacement: No Hx Kidney Transplant: No Hx Liver Transplant: No Hx Mastectomy: No Hx Musculoskeletal Surgery: No Hx Open Heart Surgery: No Hx Orthopedic Surgery: No Hx Splenectomy: No Hx Valve Replacement: No - Anesthesia Hx Anesthesia: Yes Hx Anesthesia Reactions: No Hx Malignant Hyperthermia: No Family/Social History - Physician Review Nursing Documentation Reviewed: Yes Family/Social History: No Known Family HX Smoking Status: Heavy Smoker > 10 Cigarettes Daily Hx Alcohol Use: No Hx Substance Use: Yes Allergies/Home Meds Allergies/Adverse Reactions: Allergies Penicillins Allergy (Verified 12/07/16 19:23) RASH sulfur Allergy (Uncoded 12/07/16 19:23) RASH Review of Systems - Review of Systems Constitutional: Normal. absent: Fatigue, Weight Change, Fevers ENT: Normal. absent: Sore Throat, Rhinorrhea, Sinus Congestion Respiratory: Normal. absent: SOB, Cough, Sputum Cardiovascular: Normal. absent: Chest Pain, Palpitations, Edema Musculoskeletal: Normal. absent: Arthralgias, Back Pain, Neck Pain Skin: Normal, Rash. absent: Pruritis, Skin Lesions Physical Exam Vital Signs Reviewed: Yes Vital Signs Temp Pulse Resp BP Pulse Ox 12/07/16 19:24 98.5 F 93 H 19 114/73 96 Temperature: Afebrile Blood Pressure: Normal Pulse: Regular Respiratory Rate: Normal Appearance: Positive for: Well-Appearing, Non-Toxic, Comfortable Pain Distress: None Mental Status: Positive for: Alert and Oriented X 3 - Systems Exam Head: Present: Atraumatic, Normocephalic Pupils: Present: PERRL Extroacular Muscles: Present: EOMI Conjunctiva: Present: Normal Mouth: Present: Moist Mucous Membranes, Other (no oral lesions) Pharnyx: Present: Normal Neck: Present: Normal Range of Motion. No: Meningeal Signs, MIDLINE TENDERNESS Respiratory/Chest: Present: Clear to Auscultation, Good Air Exchange. No: Respiratory Distress, Accessory Muscle Use, Wheezes, Rales, Rhonchi Cardiovascular: Present: Regular Rate and Rhythm, Normal S1, S2. No: Murmurs Upper Extremity: Present: Normal Inspection, Normal ROM, NORMAL PULSES. No: Edema, Tenderness Lower Extremity: Present: NORMAL PULSES, Normal ROM, Neurovascularly Intact, Capillary Refill < 2 s. No: Deformity Neurological: Present: GCS=15, CN II-XII Intact Skin: Present: Warm, Dry, Rashes (multiple erythematous petechial nontender nodular round lesions, each measuring ~1 cm in size to b/l LE, mostly to the feet and ankles, a few noted to the lower abdomen and groin, with 3 of the lesions noted to have vesicles) Lymphatic: No: Cervical Adenopathy, Inguinal Adenopathy Psychiatric: Present: Alert, Oriented x 3 Medical Decision Making ED Course and Treatment: 12/07/16 20:11 61 yo F presents to the emergency room complaining of one-week history of red nodular pruritic rash mostly to her lower extremities. Plan: - Labs - CBC / CMP / Coags 12/07/16 22:00 Lab results reviewed and are within normal limits. Results discussed with the patient in great detail. Patient advised to continue applying both mupirocin and steroid cream. Patient given referral to dermatology and advised to follow- up for further evaluation. Patient states she fully agrees with and understands discharge instructions. States that she agrees with the plan and disposition. Verbalized and repeated discharge instructions and plan. I have given the patient opportunity to ask any additional questions. Follow up with primary care physician in 1-2 days without fail. Advised to take medication as prescribed. Return to the emergency room at any time for any new or worsening symptoms. - Lab Interpretations Lab Results: 12/07/16 20:25 12/07/16 20:25 Lab Results 12/07/16 20:25: Sodium 138, Potassium 4.2, Chloride 105, Carbon Dioxide 26, Anion Gap 11, BUN 17, Creatinine 0.8, Est GFR ( Amer) > 60, Est GFR (Non- Af Amer) > 60, Random Glucose 78, Calcium 9.3, Total Bilirubin 0.4, AST 30, ALT 44, Alkaline Phosphatase 62, Total Protein 7.3, Albumin 4.3, Globulin 3.0, Albumin/Globulin Ratio 1.4 12/07/16 20:25: PT 10.4, INR 0.96, APTT 27.1 12/07/16 20:25: WBC 5.4 D, RBC 4.02, Hgb 12.6, Hct 37.6, MCV 93.5, MCH 31.3, MCHC 33.5, RDW 14.1, Plt Count 291, MPV 9.6, Gran % 49.8 L, Lymph % (Auto) 38.4 H, [place] % (Auto) 7.9 H, Eos % (Auto) 3.7, Baso % (Auto) 0.2, Gran # 2.70, Lymph # 2.1, [place] # 0.4, Eos # 0.2, Baso # 0.01 - PA / COKEMAN / Resident Statement MD/DO has reviewed & agrees with the documentation as recorded. Disposition/Present on Arrival - Present on Arrival Any Indicators Present on Arrival: No History of DVT/PE: No History of Uncontrolled Diabetes: No Urinary Catheter: No History of Decub. Ulcer: No History Surgical Site Infection Following: None - Disposition Have Diagnosis and Disposition been Completed?: Yes Diagnosis: Rash Disposition: HOME/ ROUTINE Disposition Time: 22:00 Patient Plan: Discharge Condition: STABLE Discharge Instructions (ExitCare): Acute Rash (ED) Print Language: ROMANIAN Referrals: Brandt Guerra MD [Primary Care Provider] - Follow up with primary Killian Muniz MD [Staff Provider] - Follow up with primary Forms: WORK NOTE
[2016-12-07 20:34] LABS: ADD MANUAL DIFF? NO
[2016-12-07 20:48] LABS: ALB/GLOB RATIO 1.4 (1.1-1.8); ALKALINE PHOSPHATASE 62 U/L (38-133); ALT/SGPT 44 U/L (7-56); AST/SGOT 30 U/L (15-39); BILIRUBIN,TOTAL 0.4 mg/dL (0.2-1.3); BLOOD UREA NITROGEN 17 mg/dL (7-21); CALCIUM 9.3 mg/dL (8.4-10.5); CARBON DIOXIDE 26 mmol/L (21-33); CHLORIDE 105 mmol/L (98-107); GFR AFRICAN-AMERICAN > 60; GLUCOSE,RANDOM 78 mg/dL (70-110); POTASSIUM 4.2 mmol/L (3.6-5.0); SODIUM 138 mmol/L (132-148); TOTAL PROTEIN 7.3 g/dL (5.8-8.3)
[2016-12-07 20:55] LABS: BASO # 0.01 K/mm3 (0.0-2.0); BASO % 0.2 % (0.0-3.0); EOS # 0.2 (0.0-0.7); EOS % 3.7 % (1.5-5.0); GRAN % 49.8 % (50.0-68.0); HEMATOCRIT 37.6 % (36.0-48.0); LYMPH # 2.1 (1.2-3.4); LYMPH % 38.4 % (22.0-35.0); MEAN CELL VOLUME 93.5 fL (80.0-105.0); MEAN CORPUSCULAR HEMOGLOBIN 31.3 pg (25.0-35.0); MEAN CORPUSCULAR HGB CONC 33.5 g/dl (31.0-37.0); MEAN PLATELET VOLUME 9.6 fl (7.0-11.0); MONO # 0.4 (0.1-0.6); MONO % 7.9 % (1.0-6.0); PLATELET COUNT 291 10^3/uL (120.0-450.0); RED CELL DISTRIBUTION WIDTH 14.1 % (11.5-14.5); WHITE BLOOD COUNT 5.4 10^3/ul (4.5-11.0)
[2016-12-07 21:04] LABS: INR 0.96 (0.93-1.08); PARTIAL THROMBOPLASTIN TIME 27.1 Seconds (23.7-30.8)
[2016-12-07 22:44] VITALS: RESP 18
[2016-12-07 22:49] VITALS: BP 118/72; PULSE 89; O2SAT 96
== END 2016-12-07 22:40 | disposition home or self-care (01) ==
LOC: ED 18:48
DX: R21 Rash and other nonspecific skin eruption (principal)

== ENCOUNTER 2017-07-19 17:30 | Inpatient (IN) | payer MEDICAID ==
[2017-07-19 17:31] VITALS: BMI 21.4
--- NOTE | 2017-07-19 17:51 | ED PDOC ---
Arrival/HPI - General Time Seen by Provider: 07/19/17 17:36 Historian: Patient, EMS - History of Present Illness Narrative History of Present Illness (Text): 07/19/17 17:48 Patient is a 61 yo female presents with history of coughing and shortness of breath for the past week. States shortness of breath and cough worse today. Denies chest pain. Denies hemoptysis. Denies abdominal pain. Denies nausea or vomiting. Denies abdominal pain. Denies leg pain or swelling. Denies lightheadedness or dizziness. Time/Duration: Prior to Arrival, 1 week Symptom Onset: Gradual Past Medical History - Infectious Disease Hx of Infectious Diseases: None - Cardiac Hx Cardiac Disorders: Yes Hx Hypertension: Yes - Pulmonary Hx Respiratory Disorders: Yes Hx Bronchitis: Yes Hx Chronic Obstructive Pulmonary Disease (COPD): Yes Hx Emphysema: Yes Hx Pneumonia: Yes Hx Respiratory Tract Infection: Yes - Neurological Hx Neurological Disorder: Yes Hx Dizziness: Yes Hx Migraine: Yes - HEENT Hx HEENT Disorder: Yes (blurred vision) Hx Epistaxis: Yes - Renal Hx Renal Disorder: No - Endocrine/Metabolic Hx Endocrine Disorders: Yes Hx Diabetes Mellitus Type 2: Yes (hx of) Hx Hyperthyroidism: Yes - Hematological/Oncological Hx Blood Disorders: Yes Hx AIDS: No Hx Anemia: Yes - Integumentary Hx Dermatological Disorder: No - Musculoskeletal/Rheumatological Hx Musculoskeletal Disorders: No Hx Arthritis: No Hx Back Pain: No Hx Degenerative Joint Disease: No Hx Falls: No Hx Fractures: No Hx Gout: No Hx Herniated Disk: No Hx Myasthenia Gravis: No Hx Osteoarthritis: No Hx Osteomyelitis: No Hx Osteoporosis: No Hx Rhabdomyolysis: No Hx Spinal Stenosis: No Hx Unsteady Gait: No - Gastrointestinal Hx Gastrointestinal Disorders: No Hx Colostomy: No Hx Crohn's Disease: No Hx Diverticulitis: No Hx Gall Bladder Disease: No Hx Gastroesophageal Reflux: No Hx Gastrointestinal Ulcer: No Hx Ileostomy: No Hx Liver Failure: No Hx Pancreatitis: No HX Swallowing Problems: No - Genitourinary/Gynecological Hx Genitourinary Disorders: Yes Hx Hematuria: No Hx Prostate Problems: No Hx Sexually Transmitted Diseases: No Hx Urinary Tract Infection: Yes - Psychiatric Hx Psychophysiologic Disorder: Yes Hx Anxiety: Yes Hx Bipolar Disorder: Yes Hx Depression: Yes Hx Emotional Abuse: No Hx Hallucinations: Yes Hx Panic Disorder: Yes Hx Post Traumatic Stress Disorder: Yes Hx Psychosis: No Hx Physical Abuse: No Hx Schizophrenia: No Hx Sexual Abuse: No Hx Substance Use: Yes - Surgical History Hx Amputation: No Hx Appendectomy: No Hx Cholecystectomy: No Hx Gastric Bypass Surgery: No Hx Hysterectomy: No Hx Joint Replacement: No Hx Kidney Transplant: No Hx Liver Transplant: No Hx Mastectomy: No Hx Musculoskeletal Surgery: No Hx Open Heart Surgery: No Hx Orthopedic Surgery: No Hx Splenectomy: No Hx Valve Replacement: No - Anesthesia Hx Anesthesia: Yes Hx Anesthesia Reactions: No Hx Malignant Hyperthermia: No Family/Social History Family/Social History: Unknown Family HX Smoking Status: Heavy Smoker > 10 Cigarettes Daily Hx Alcohol Use: No Hx Substance Use: Yes Allergies/Home Meds Allergies/Adverse Reactions: Allergies Penicillins Allergy (Verified 07/19/17 18:00) RASH sulfur Allergy (Uncoded 07/19/17 18:00) RASH Review of Systems - Review of Systems Constitutional: Fatigue. absent: Fevers Eyes: absent: Vision Changes ENT: absent: Hearing Changes Respiratory: SOB, Cough, Sputum, Wheezing Cardiovascular: absent: Chest Pain, Palpitations, Edema, Calf Pain, Orthopnea, Syncope Gastrointestinal: absent: Abdominal Pain Musculoskeletal: absent: Back Pain, Neck Pain Skin: absent: Rash Neurological: absent: Headache, Dizziness, Focal Weakness Endocrine: absent: Polyuria Hemo/Lymphatic: absent: Easy Bleeding Psychiatric: absent: Depression Physical Exam Vital Signs Reviewed: Yes Vital Signs Temp Pulse Resp BP Pulse Ox 07/19/17 18:00 97.5 F L 65 17 107/66 95 Temperature: Afebrile Appearance: Positive for: Non-Toxic Pain Distress: Mild Mental Status: Positive for: Alert and Oriented X 3 - Systems Exam Head: Present: Atraumatic, Normocephalic Pupils: Present: PERRL Extroacular Muscles: Present: EOMI Mouth: Present: Moist Mucous Membranes Pharnyx: No: ERYTHEMA Nose (Internal): Present: Normal Inspection Neck: Present: Normal Range of Motion. No: Meningeal Signs Respiratory/Chest: Present: Wheezes, Rhonchi. No: Respiratory Distress Cardiovascular: Present: Regular Rate and Rhythm, Murmurs Abdomen: No: Tenderness, Distention Back: No: CVA Tenderness Upper Extremity: No: Cyanosis Lower Extremity: No: Edema, CALF TENDERNESS Neurological: Present: Motor Func Grossly Intact, Normal Sensory Function Skin: Present: Warm Psychiatric: Present: Alert, Normal Insight, Normal Concentration Medical Decision Making ED Course and Treatment: Impression: A 61 year old female with shortness of breath and cough. Plan: -- chest xray -- EKG -- labs -- Urinalysis -- Duoneb, Zithromax -- Reassess and disposition Progress Notes: Patient states to being a smoker and that she was sent here from an outside clinic. CXR obtained in ed due to history of coughing and shortness of breath. 07/19/17 18:55 chest xray: Creator : Raciel Suero MD IMPRESSION: No active disease. No significant interval change compared to the prior examination(s). Patient with persistent diffuse wheezing. Multiple nebulizers ordered and patient initiated on iv antibiotics. Patient will be admitted for COPD exacerbation, rule out pneumonia. No chest pain. No calf pain or swelling. 07/19/17 20:24 Case d/w Dr. Addison Herrera who accepts admission to hospitalist. - Lab Interpretations Lab Results: 07/19/17 18:25 07/19/17 18:25 Lab Results 07/19/17 19:30: Alcohol, Quantitative < 10 07/19/17 18:25: Sodium 141, Chloride 107, Potassium 4.5, Carbon Dioxide 23, Anion Gap 16, BUN 24 H, Creatinine 0.8, Est GFR ( Amer) > 60, Est GFR ( Non-Af Amer) > 60, Random Glucose 120 H, Calcium 9.7, Total Bilirubin 0.2, AST 31, ALT 36, Alkaline Phosphatase 98, Lactate Dehydrogenase 535, Total Creatine Kinase 103, Troponin I < 0.01, NT-Pro-B Natriuret Pep 53.9, Total Protein 7.0, Albumin 3.9, Globulin 3.1, Albumin/Globulin Ratio 1.3 07/19/17 18:25: pO2 40, VBG pH 7.26 L, VBG pCO2 55.0, VBG HCO3 24.7, VBG Total CO2 26.4, VBG O2 Sat (Calc) 77.7 H, VBG Base Excess -3.2 L, VBG Potassium 4.2, Sodium 139.0, Chloride 108.0 H, Glucose 126 H, Lactate 0.8, FiO2 21.0, Venous Blood Potassium 4.2 07/19/17 18:25: PT 11.6, INR 1.02, APTT 32.4 07/19/17 18:25: WBC 9.5 D, RBC 4.23, Hgb 12.7, Hct 38.6, MCV 91.3, MCH 30.0, MCHC 32.9, RDW 13.6, Plt Count 327, MPV 9.9, Gran % 85.0 H, Lymph % (Auto) 12.1 L, Atkinson % (Auto) 1.9, Eos % (Auto) 0.9 L, Baso % (Auto) 0.1, Gran # 8.11 H, Lymph # (Auto) 1.2, Atkinson # (Auto) 0.2, Eos # (Auto) 0.1, Baso # (Auto) 0.01 I have reviewed the lab results: Yes - RAD Interpretation Radiology Orders: 07/19/17 18:11 CHEST PORTABLE [RAD] Stat - EKG Interpretation EKG Interpretation (Text): 07/19/17 19:52 EKG normal sinus rhythm rate of [address] elevations Interpreted by ED Physician: Yes Type: 12 lead EKG - Medication Orders Current Medication Orders: Discontinued Medications Albuterol/Ipratropium (Duoneb 3 Mg/0.5 Mg (3 Ml) Ud) 3 ml IH Q15M COCO Stop: 07/19/17 18:46 Last Admin: 07/19/17 18:55 Dose: 3 ml Azithromycin (Zithromax 500mg In Ns) 500 mg in 250 mls @ 166.667 mls/hr IVPB STAT STA PRN Reason: Protocol Stop: 07/19/17 19:41 Last Admin: 07/19/17 18:25 Dose: 166.667 mls/hr eMAR Start Stop Document 07/19/17 18:25 RD (Rec: 07/19/17 18:55 RD [id number]) Intravenous Solution Start Date 07/19/17 Start Time 18:25 End Date 07/19/17 End time 19:55 Total Infusion Time 90 Methylprednisolone (Solu-Medrol) 125 mg IVP STAT STA Stop: 07/19/17 19:47 Last Admin: 07/19/17 20:07 Dose: 125 mg IVP Administration Document 07/19/17 20:07 IT (Rec: 07/19/17 20:07 IT [id number]) Charges for Administration # of IVP Administrations 1 Disposition/Present on Arrival - Present on Arrival Any Indicators Present on Arrival: No History of DVT/PE: No History of Uncontrolled Diabetes: No Urinary Catheter: No History Surgical Site Infection Following: None - Disposition Have Diagnosis and Disposition been Completed?: Yes Diagnosis: COPD exacerbation Disposition: HOSPITALIZED Disposition Time: 19:47 Patient Plan: Admission Patient Problems: Current Active Problems Problem Status Onset COPD exacerbation Acute Condition: FAIR Referrals: Jennifer Carrizales MD [Primary Care Provider] - Follow up with primary
[2017-07-19] MEDS ORDERED: Azithromycin 500MG/NS 250ml 500 MG/250 ML BAG IVPB STA (18:12)
[2017-07-19] MEDS: Albuterol-Ipratrop 3 mg / 0.5 (3 ml) UD IH SCH ×3 (18:25→18:55)
[2017-07-19 18:38] LABS: VENOUS BLOOD GAS BASE EXCESS -3.2 mmol/L (0.0-2.0); VENOUS BLOOD GAS PO2 40 mm/Hg (30-55); VENOUS BLOOD PH 7.26 (7.32-7.43)
[2017-07-19 18:52] LABS: ALBUMIN 3.9 g/dL (3.0-4.8); BLOOD UREA NITROGEN 24 mg/dL (7-21); CALCIUM 9.7 mg/dL (8.4-10.5); GFR AFRICAN-AMERICAN > 60; GFR NON-AFRICAN AMERICAN > 60
--- NOTE | 2017-07-19 18:52 | RAD ---
HISTORY: Shortness of breath. COMPARISON: 10/22/2016 FINDINGS: LUNGS: No active pulmonary disease. PLEURA: No significant pleural effusion identified, no pneumothorax apparent. CARDIOVASCULAR: Normal. OSSEOUS STRUCTURES: No significant abnormalities. VISUALIZED UPPER ABDOMEN: Normal. OTHER FINDINGS: None. IMPRESSION: No active disease. No significant interval change compared to the prior examination(s).
[2017-07-19 18:53] LABS: ALB/GLOB RATIO 1.3 (1.1-1.8); ALT/SGPT 36 U/L (7-56); AST/SGOT 31 U/L (14-36)
[2017-07-19 19:00] LABS: BASO # 0.01 K/mm3 (0.0-2.0); BASO % 0.1 % (0.0-3.0); EOS # 0.1 (0.0-0.7); EOS % 0.9 % (1.5-5.0); GRAN # 8.11 (1.4-6.5); HEMOGLOBIN 12.7 g/dL (12.0-16.0); INR 1.02 (0.93-1.08); LYMPH # 1.2 (1.2-3.4); LYMPH % 12.1 % (22.0-35.0); MEAN CELL VOLUME 91.3 fl (80.0-105.0); MEAN CORPUSCULAR HGB CONC 32.9 g/dl (31.0-37.0); MEAN PLATELET VOLUME 9.9 fl (7.0-11.0); MONO # 0.2 (0.1-0.6); MONO % 1.9 % (1.0-6.0); PARTIAL THROMBOPLASTIN TIME 32.4 Seconds (25.1-36.5); PROTHROMBIN TIME 11.6 SECONDS (9.4-12.5); RBC 4.23 10^6/uL (3.5-6.1); RED CELL DISTRIBUTION WIDTH 13.6 % (11.5-14.5); WHITE BLOOD COUNT 9.5 10^3/ul (4.5-11.0)
[2017-07-19 19:04] LABS: B-TYPE NATRIURETIC PEPTIDE 53.9 pg/mL (0-450); TROPONIN I < 0.01 ng/mL
[2017-07-19 20:52] LABS: PH,URINE 5.5 (4.7-8.0); URINE BILIRUBIN NEGATIVE (NEGATIVE); URINE BLOOD NEGATIVE (NEGATIVE); URINE GLUCOSE (UA) NEGATIVE (NEGATIVE); URINE LEUKOCYTE ESTERASE NEGATIVE Leu/uL (NEGATIVE); URINE NITRATE NEGATIVE (NEGATIVE); URINE PROTEIN NEGATIVE mg/dL (<30 mg/dL); URINE UROBILINOGEN 0.2 E.U./dL (<1 E.U./dL)
[2017-07-19 20:53] LABS: URINE APPEARANCE CLEAR (CLEAR); URINE COLOR YELLOW (YELLOW)
[2017-07-19 21:26] LABS: BARBITURATES, UR NEGATIVE (NEGATIVE); BENZODIAZEPINES, UR NEGATIVE (NEGATIVE); OPIATES, UR POSITIVE (NEGATIVE); PHENCYCLIDINE, UR NEGATIVE (NEGATIVE)
[2017-07-19] MEDS ORDERED: Albuterol-Ipratrop 3 mg / 0.5 (3 ml) UD IH PRN (21:47)
[2017-07-19] MEDS ORDERED: methylPREDNISolone 40 MG in Sodium Chloride 0.9% 100 ML IVPB SCH (22:00)
--- NOTE | 2017-07-19 22:14 | CP.PCM.HP ---
<CarrizalesJose Angel - Last Filed: 07/19/17 23:01> History of Present Illness - History of Present Illness History of Present Illness: 61 year old female with past medical history of HLD, hypertension, diabetes, COPD, bronchitis and anxiety presents with cough. Patient states he cough began couple of weeks ago and has been persistent. She states the cough is dry, and non productive but persistent. She denies any shortness of breath, pain on inhalation, or pain while coughing. She has not taken any medication for the cough. Patient denies chest pain, shortness of breath, fever, chills, sore throat, abdominal pain, recent sick contacts or travel. No additional complaints at this time. 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 absent: Dyspnea, Dyspnea on Exertion, Pain on Inspiration, Chest Congestion, Excessive Mucous Production, Pain with Coughing - Gastrointestinal Gastrointestinal: absent: Abdominal Pain, Diarrhea, Nausea, Vomiting - Musculoskeletal Musculoskeletal: absent: Arthralgias, Numbness, Tingling - Neurological Neurological: absent: Disequilibrium, Headaches, Vertigo, Weakness Past Patient History - Infectious Disease Hx of Infectious Diseases: None - Past Social History Smoking Status: Heavy Smoker > 10 Cigarettes Daily - CARDIAC Hx Cardiac Disorders: Yes Hx Hypertension: Yes - PULMONARY Hx Respiratory Disorders: Yes Hx Bronchitis: Yes Hx Chronic Obstructive Pulmonary Disease (COPD): Yes Hx Emphysema: Yes Hx Pneumonia: Yes Hx Respiratory Tract Infection: Yes - NEUROLOGICAL Hx Neurological Disorder: Yes Hx Dizziness: Yes Hx Migraine: Yes - HEENT Hx HEENT Problems: Yes (blurred vision) Hx Epistaxis: Yes - RENAL Hx Chronic Kidney Disease: No - ENDOCRINE/METABOLIC Hx Endocrine Disorders: Yes Hx Diabetes Mellitus Type 2: Yes (hx of) Hx Hyperthyroidism: Yes - HEMATOLOGICAL/ONCOLOGICAL Hx Blood Disorders: Yes Hx AIDS: No Hx Anemia: Yes - INTEGUMENTARY Hx Dermatological Problems: No - MUSCULOSKELETAL/RHEUMATOLOGICAL Hx Musculoskeletal Disorders: No Hx Arthritis: No Hx Back Pain: No Hx Degenerative Joint Disease: No Hx Falls: No Hx Fractures: No Hx Gout: No Hx Herniated Disk: No Hx Myasthenia Gravis: No Hx Osteoarthritis: No Hx Osteomyelitis: No Hx Osteoporosis: No Hx Rhabdomyolysis: No Hx Spinal Stenosis: No Hx Unsteady Gait: No - GASTROINTESTINAL Hx Gastrointestinal Disorders: No Hx Colostomy: No Hx Crohn's Disease: No Hx Diverticulitis: No Hx Gall Bladder Disease: No Hx Gastroesophageal Reflux: No Hx Ileostomy: No Hx Liver Failure: No Hx Pancreatitis: No HX Swallowing Problems: No - GENITOURINARY/GYNECOLOGICAL Hx Genitourinary Disorders: Yes Hx Hematuria: No Hx Sexually Transmitted Disorders: No Hx Urinary Tract Infection: Yes - PSYCHIATRIC Hx Psychophysiologic Disorder: Yes Hx Anxiety: Yes Hx Bipolar Disorder: Yes Hx Depression: Yes Hx Emotional Abuse: No Hx Hallucinations: Yes Hx Panic Symptoms: Yes Hx Post Traumatic Stress Disorder: Yes Hx Psychosis: No Hx Physical Abuse: No Hx Schizophrenia: No Hx Sexual Abuse: No Hx Substance Use: Yes - SURGICAL HISTORY Hx Amputation: No Hx Appendectomy: No Hx Cholecystectomy: No Hx Gastric Bypass Surgery: No Hx Hysterectomy: No Hx Joint Replacement: No Hx Kidney Transplant: No Hx Liver Transplant: No Hx Mastectomy: No Hx Musculoskeletal Surgery: No Hx Open Heart Surgery: No Hx Orthopedic Surgery: No Hx Splenectomy: No Hx Valve Replacement: No - ANESTHESIA Hx Anesthesia: Yes Hx Anesthesia Reactions: No Hx Malignant Hyperthermia: No Meds Allergies/Adverse Reactions: Allergies Allergy/AdvReac Type Severity Reaction Status Date / Time Penicillins Allergy RASH Verified 07/19/17 18:00 sulfur Allergy RASH Uncoded 07/19/17 18:00 Physical Exam - Constitutional Appears: Non-toxic, No Acute Distress - Head Exam Head Exam: ATRAUMATIC, NORMAL INSPECTION, NORMOCEPHALIC - Eye Exam Eye Exam: EOMI, Normal appearance - ENT Exam ENT Exam: Mucous Membranes Moist - Neck Exam Neck exam: Negative for: Lymphadenopathy, Tenderness - Respiratory Exam Respiratory Exam: Wheezes - Cardiovascular Exam Cardiovascular Exam: REGULAR RHYTHM, +S1, +S2 - GI/Abdominal Exam GI & Abdominal Exam: absent: Tenderness - Extremities Exam Extremities exam: Positive for: pedal pulses present. Negative for: pedal edema - Neurological Exam Neurological exam: Alert, Oriented x3 Results - Vital Signs Recent Vital Signs: Last Vital Signs Temp 97.5 F L 07/19/17 18:00 Pulse 89 07/19/17 22:08 Resp 17 07/19/17 22:08 BP 100/60 07/19/17 22:08 Pulse Ox 98 07/19/17 22:08 - Labs Result Diagrams: 07/19/17 18:25 07/19/17 18:25 Labs: Laboratory Results - last 24 hr 07/19/17 07/19/17 07/19/17 20:30 20:30 21:27 Urine Color Yellow Urine Appearance Clear Urine pH 5.5 Ur Specific [place] >= 1.030 Urine Protein Negative Urine Glucose (UA) Negative Urine Ketones Negative Urine Blood Negative Urine Nitrate Negative Urine Bilirubin Negative Urine Urobilinogen 0.2 Ur Leukocyte Esterase Negative Urine Opiates Screen Positive H Urine Methadone Screen No result Ur Barbiturates Screen Negative Ur Phencyclidine Scrn Negative Ur Amphetamines Screen Negative U Benzodiazepines Scrn Negative U Oth Cocaine Metabols Negative U Cannabinoids Screen Negative Influenza Typ A,B (EIA) Negative for flu a/b Assessment & Plan - Assessment and Plan (Free Text) Assessment: 61 year old female with past medical history of HLD, hypertension, diabetes, COPD, bronchitis and anxiety presents with cough. Patient states he cough began couple of weeks ago and has been persistent. Plan: 1. COPD/Asthma Exacerbation -Chest X-Ray does not show any active disease -Azithromycin 500 IV -IV Solu-medrol 40mg Q12H -Duonebs 3ml IH [id number] COCO and [id number] PRN -Oxygen 2L PRN -Mucinex DM 2. HTN -continue home meds 3. DM -ISS low 4. Drug Use -UDS positive for opiates -counselled on drug use 5. HLD -continue home lipitor GI/DVT -protonix -SCD <Sherry Herrera - Last Filed: 07/21/17 01:24> Results - Vital Signs Recent Vital Signs: Last Vital Signs Temp 97.6 F 07/20/17 16:00 Pulse 77 07/20/17 16:00 Resp 15 07/20/17 16:00 BP 108/76 07/20/17 16:00 Pulse Ox 95 07/20/17 16:00 - Labs Result Diagrams: 07/20/17 09:45 07/20/17 09:45 Labs: Laboratory Results - last 24 hr 07/20/17 07/20/17 07/20/17 07:24 09:45 09:45 WBC 9.4 RBC 3.91 Hgb 11.6 L Hct 35.2 L MCV 90.0 MCH 29.7 MCHC 33.0 RDW 13.3 Plt Count 295 MPV 9.8 Gran % 90.5 H Lymph % (Auto) 7.3 L Perkins % (Auto) 2.2 Eos % (Auto) 0.0 L Baso % (Auto) 0.0 Gran # 8.47 H Lymph # (Auto) 0.7 L Perkins # (Auto) 0.2 Eos # (Auto) 0.0 Baso # (Auto) 0.00 Neutrophils % (Manual) 92 H Lymphocytes % (Manual) 4 L Monocytes % (Manual) 4 Platelet Evaluation Normal Anisocytosis (manual) Slight Sodium 139 Potassium 4.3 Chloride 109 H Carbon Dioxide 21 Anion Gap 14 BUN 15 Creatinine 0.6 L Est GFR ( Amer) > 60 Est GFR (Non-Af Amer) > 60 POC Glucose (mg/dL) 115 H Random Glucose 169 H Calcium 9.3 Total Bilirubin 0.3 AST 23 ALT 32 Alkaline Phosphatase 68 Total Protein 6.3 Albumin 3.5 Globulin 2.8 Albumin/Globulin Ratio 1.2 07/20/17 07/20/17 07/20/17 11:02 16:12 21:26 WBC RBC Hgb Hct MCV MCH MCHC RDW Plt Count MPV Gran % Lymph % (Auto) Perkins % (Auto) Eos % (Auto) Baso % (Auto) Gran # Lymph # (Auto) Perkins # (Auto) Eos # (Auto) Baso # (Auto) Neutrophils % (Manual) Lymphocytes % (Manual) Monocytes % (Manual) Platelet Evaluation Anisocytosis (manual) Sodium Potassium Chloride Carbon Dioxide Anion Gap BUN Creatinine Est GFR ( Amer) Est GFR (Non-Af Amer) POC Glucose (mg/dL) 125 H 96 125 H Random Glucose Calcium Total Bilirubin AST ALT Alkaline Phosphatase Total Protein Albumin Globulin Albumin/Globulin Ratio
[2017-07-19] MEDS: Sodium Chloride 0.9% 1,000 ML IV SCH (22:20)
[2017-07-19] MEDS: guaiFENesin-DM 600-30 mg ER Tab PO SCH (23:16)
[2017-07-19] MEDS: MethylPREDNISolone 40 mg Vial IV SCH (23:21)
[2017-07-20] MEDS ORDERED: Albuterol-Ipratrop 3 mg / 0.5 (3 ml) UD IH SCH (02:00)
[2017-07-20] MEDS ORDERED: Pantoprazole 40 mg EC Tab PO SCH (06:00)
[2017-07-20] MEDS: Insulin Lispro (humaLOG) LOW Coverage SC SCH ×4 (07:49→22:44)
[2017-07-20 10:08] LABS: GRAN # 8.47 (1.4-6.5); GRAN % 90.5 % (50.0-68.0); HEMOGLOBIN 11.6 g/dL (12.0-16.0); LYMPH # 0.7 (1.2-3.4); LYMPH % 7.3 % (22.0-35.0); MEAN CORPUSCULAR HEMOGLOBIN 29.7 pg (25.0-35.0); MEAN PLATELET VOLUME 9.8 fl (7.0-11.0); MONO # 0.2 (0.1-0.6); MONO % 2.2 % (1.0-6.0); PLATELET COUNT 295 10^3/uL (120.0-450.0); RBC 3.91 10^6/uL (3.5-6.1); RED CELL DISTRIBUTION WIDTH 13.3 % (11.5-14.5); WHITE BLOOD COUNT 9.4 10^3/ul (4.5-11.0)
[2017-07-20 10:39] LABS: ALB/GLOB RATIO 1.2 (1.1-1.8); ALBUMIN 3.5 g/dL (3.0-4.8); ALT/SGPT 32 U/L (7-56); AST/SGOT 23 U/L (14-36); BLOOD UREA NITROGEN 15 mg/dL (7-21); CALCIUM 9.3 mg/dL (8.4-10.5); GFR AFRICAN-AMERICAN > 60; GFR NON-AFRICAN AMERICAN > 60
[2017-07-20] MEDS: Sodium Chloride 0.9% 1,000 ML IV SCH (10:42)
[2017-07-20] MEDS: guaiFENesin-DM 600-30 mg ER Tab PO SCH ×2 (10:43→17:03)
[2017-07-20] MEDS: Azithromycin 500MG/NS 250ml 500 MG/250 ML BAG IVPB SCH (10:44)
[2017-07-20] MEDS: MethylPREDNISolone 40 mg Vial IV SCH (10:45)
[2017-07-20 10:55] LABS: ANISOCYTOSIS SLIGHT; LYMPHOCYTE 4 % (22.0-35.0); MONOCYTE 4 % (1.0-6.0); NEUTROPHIL 92 % (50.0-70.0); PLATELET ESTIMATE NORMAL (NORMAL)
[2017-07-20] MEDS: Albuterol-Ipratrop 3 mg / 0.5 (3 ml) UD IH SCH ×3 (11:04→21:45)
--- NOTE | 2017-07-20 16:47 | CARD ---
APPROVED REPORT EKG Measurement Heart [id number] <Conclusion> Normal sinus rhythm Possible Left atrial enlargement Borderline ECG
--- NOTE | 2017-07-20 17:19 | CP.PCM.PN ---
<Joshua Coy - Last Filed: 07/20/17 17:15> Subjective - Date & Time of Evaluation Date of Evaluation: 07/20/17 Time of Evaluation: 17:16 - Subjective Subjective: Medicine Progress Note: Patient seen and assess at bedside. No acute events overnight reported by patient or nursing staff. Patient reports that her cough has improved since admission. Patient has no complaints at this time, including fever, chills, headache, chest pain, SOB, abdominal pain, N/V/D/C, urinary symptoms, or any numbness/tingling/weakness of any extremity. Objective - Vital Signs/Intake and Output Vital Signs (last 24 hours): Temp Pulse Resp BP Pulse Ox 98.6 F 78 20 138/84 94 L 07/20/17 08:13 07/20/17 10:43 07/20/17 08:13 07/20/17 10:43 07/20/17 08:13 Intake and Output: 07/20/17 07/20/17 06:59 18:59 Intake Total 120 Balance 120 - Medications Medications: Current Medications Albuterol/Ipratropium (Duoneb 3 Mg/0.5 Mg (3 Ml) Ud) 3 ml IH Q2H PRN PRN Reason: Shortness of Breath Albuterol/Ipratropium (Duoneb 3 Mg/0.5 Mg (3 Ml) Ud) 3 ml IH [id number] [facility] Last Admin: 07/20/17 16:45 Dose: 3 ml Atenolol (Tenormin) 12.5 mg PO DAILY [facility] Last Admin: 07/20/17 10:43 Dose: 12.5 mg Atorvastatin Calcium (Lipitor) 40 mg PO DIN [facility] Last Admin: 07/20/17 17:03 Dose: 40 mg Guaifenesin/Dextromethorphan (Mucinex-Dm 600-30 Mg) 1 tab PO BID [facility] Last Admin: 07/20/17 17:03 Dose: 1 tab Azithromycin (Zithromax 500mg In Ns) 500 mg in 250 mls @ 167 mls/hr IVPB DAILY [facility] PRN Reason: Protocol Last Admin: 07/20/17 10:44 Dose: 167 mls/hr Sodium Chloride (Sodium Chloride 0.9%) 1,000 mls @ 100 mls/hr IV .Q10H [facility] Last Admin: 07/20/17 10:42 Dose: 100 mls/hr Insulin Human Lispro (Humalog Low) 0 units SC ACHS [facility] PRN Reason: Protocol Last Admin: 07/20/17 16:45 Dose: Not Given Lorazepam (Ativan) 1 mg IVP Q6H PRN; Protocol PRN Reason: Anxiety Methylprednisolone (Solu-Medrol) 40 mg IV DAILY [facility] Mirtazapine (Remeron) 15 mg PO HS [facility] Last Admin: 07/19/17 23:16 Dose: 15 mg Pantoprazole Sodium (Protonix Ec Tab) 40 mg PO 0600 [facility] - Labs Labs: 07/20/17 09:45 07/20/17 09:45 PT 11.6 SECONDS (9.4-12.5) 07/19/17 18:25 INR 1.02 (0.93-1.08) 07/19/17 18:25 APTT 32.4 Seconds (25.1-36.5) 07/19/17 18:25 - Constitutional Appears: Non-toxic, No Acute Distress - Head Exam Head Exam: ATRAUMATIC, NORMAL INSPECTION, NORMOCEPHALIC - Eye Exam Eye Exam: EOMI, Normal appearance, PERRL - ENT Exam ENT Exam: Mucous Membranes Moist, Normal Exam - Neck Exam Neck Exam: Full ROM, Normal Inspection. absent: Lymphadenopathy - Respiratory Exam Respiratory Exam: Wheezes (End expiratory; diffuse but more prominent in lower lung barkley), NORMAL BREATHING PATTERN. absent: Accessory Muscle Use, Chest Wall Tenderness, Decreased Breath Sounds, Clear to Ausculation Bilateral, Prolonged Expiratory Phase, Rales, Rhonchi, Respiratory Distress, Stridor - Cardiovascular Exam Cardiovascular Exam: REGULAR RHYTHM, RRR, +S1, +S2. absent: Bradycardia, Tachycardia - GI/Abdominal Exam GI & Abdominal Exam: Soft, Normal Bowel Sounds. absent: Tenderness - Extremities Exam Extremities Exam: Full ROM, Normal Capillary Refill, Normal Inspection. absent : Calf Tenderness, Joint Swelling, Pedal Edema, Tenderness - Back Exam Back Exam: NORMAL INSPECTION - Neurological Exam Neurological Exam: Alert, Awake, CN II-XII Intact, Normal Gait, Oriented x3 - Psychiatric Exam Psychiatric exam: Normal Affect, Normal Mood - Skin Skin Exam: Dry, Intact, Normal Color, Warm Assessment and Plan - Assessment and Plan (Free Text) Assessment: 61 year old female with a past medical history significant for HLD, HTN, DM2, COPD, bronchitis and anxiety who presents with cough. Patient states that her cough has improved since admission. Plan: 1. COPD Exacerbation -Chest X-Ray showed NAD -EKG showed NSR at 88bpm -Zithromax 500mg IVPB QD -Duonebs Q4H COCO and Q2H PRN -Solu-Medrol 40mg IV QD -Mucinex-DM 600-30mg -Supplemental Oxygen via NC at 2 L/min -Tobacco cessation counseling provided 2. DM2 -SSI-Low and Accuchecks ACHS 3. HTN -Continue home Atenolol 4. History of Depression with Anxiety -Continue home Remeron -Ativan 1mg IVP Q6H PRN 5. HLD -Continue home Lipitor GI Prophylaxis: Protonix DVT Prophylaxis: SCD's Patient seen and case discussed with attending, Dr. Lopez. <Jn Lopez - Last Filed: 07/21/17 14:11> Objective - Vital Signs/Intake and Output Vital Signs (last 24 hours): Temp Pulse Resp BP Pulse Ox 97.3 F L 65 20 143/103 H 95 07/21/17 07:52 07/21/17 07:52 07/21/17 07:52 07/21/17 09:52 07/21/17 07:52 Intake and Output: 07/21/17 07/21/17 06:59 18:59 Intake Total 360 Balance 360 - Labs Labs: 07/21/17 07:00 07/21/17 07:00 PT 11.6 SECONDS (9.4-12.5) 07/19/17 18:25 INR 1.02 (0.93-1.08) 07/19/17 18:25 APTT 32.4 Seconds (25.1-36.5) 07/19/17 18:25 Attending/Attestation - Attestation I have personally seen and examined this patient.: Yes I have fully participated in the care of the patient.: Yes I have reviewed all pertinent clinical information, including history, physical exam and plan: Yes Notes (Text): 07/21/17 14:10 Patient was seen and examined with vice president medical affairs. Agreed with assessment and plan. 61 yrs old female with COPD exacerbation, improving, We will continue Neb/IV steroid and antibiotics. The issue of ongoing smoking was discussed in detail with the patient.Smoking cessation counseling was done Management plan was discussed in detail with patient. Education was provided.
[2017-07-20 17:37] VITALS: O2SAT 95
[2017-07-21] MEDS: Albuterol-Ipratrop 3 mg / 0.5 (3 ml) UD IH SCH ×4 (03:00→11:19)
[2017-07-21 07:51] LABS: BASO # 0.01 K/mm3 (0.0-2.0); BASO % 0.1 % (0.0-3.0); EOS # 0.1 (0.0-0.7); EOS % 0.7 % (1.5-5.0); GRAN % 59.4 % (50.0-68.0); HEMOGLOBIN 11.2 g/dL (12.0-16.0); LYMPH # 2.4 (1.2-3.4); LYMPH % 35.5 % (22.0-35.0); MEAN CELL VOLUME 90.6 fl (80.0-105.0); MEAN CORPUSCULAR HEMOGLOBIN 29.1 pg (25.0-35.0); MEAN CORPUSCULAR HGB CONC 32.1 g/dl (31.0-37.0); MONO # 0.3 (0.1-0.6); MONO % 4.3 % (1.0-6.0); RBC 3.85 10^6/uL (3.5-6.1); RED CELL DISTRIBUTION WIDTH 13.7 % (11.5-14.5); WHITE BLOOD COUNT 6.7 10^3/ul (4.5-11.0)
[2017-07-21 07:53] VITALS: BP 143/103; PULSE 65; RESP 20; TEMP 97.3
[2017-07-21] MEDS: Insulin Lispro (humaLOG) LOW Coverage SC SCH (08:38)
[2017-07-21] MEDS: guaiFENesin-DM 600-30 mg ER Tab PO SCH (09:52)
[2017-07-21] MEDS: Azithromycin 500MG/NS 250ml 500 MG/250 ML BAG IVPB SCH (09:54)
[2017-07-21] MEDS ORDERED: MethylPREDNISolone 40 mg Vial IV SCH (10:00)
[2017-07-21 10:28] LABS: ALB/GLOB RATIO 1.2 (1.1-1.8); ALBUMIN 3.1 g/dL (3.0-4.8); ALT/SGPT 49 U/L (7-56); AST/SGOT 45 U/L (14-36); BLOOD UREA NITROGEN 16 mg/dL (7-21); CALCIUM 8.8 mg/dL (8.4-10.5); GFR AFRICAN-AMERICAN > 60; GFR NON-AFRICAN AMERICAN > 60
--- NOTE | 2017-07-21 17:23 | CP.PCM.DIS ---
<Joshua Coy - Last Filed: 07/21/17 17:16> Provider - Provider Date of Admission: 07/19/17 20:22 Attending physician: Jn Lopez MD Primary care physician: Jennifer Carrizales MD Consults: None Time Spent in preparation of Discharge (in minutes): 51 Hospital Course - Lab Results Lab Results: Micro Results 07/19/17 20:30 Urine Urine Culture - Final No Growth (<1,000 CFU/ML) Most Recent Lab Values WBC 6.7 10^3/ul (4.5-11.0) D 07/21/17 07:00 RBC 3.85 10^6/uL (3.5-6.1) 07/21/17 07:00 Hgb 11.2 g/dL (12.0-16.0) L 07/21/17 07:00 Hct 34.9 % (36.0-48.0) L 07/21/17 07:00 MCV 90.6 fl (80.0-105.0) 07/21/17 07:00 MCH 29.1 pg (25.0-35.0) 07/21/17 07:00 MCHC 32.1 g/dl (31.0-37.0) 07/21/17 07:00 RDW 13.7 % (11.5-14.5) 07/21/17 07:00 Plt Count 271 10^3/uL (120.0-450.0) 07/21/17 07:00 MPV 10.0 fl (7.0-11.0) 07/21/17 07:00 Gran % 59.4 % (50.0-68.0) 07/21/17 07:00 Lymph % (Auto) 35.5 % (22.0-35.0) H 07/21/17 07:00 [place] % (Auto) 4.3 % (1.0-6.0) 07/21/17 07:00 Eos % (Auto) 0.7 % (1.5-5.0) L 07/21/17 07:00 Baso % (Auto) 0.1 % (0.0-3.0) 07/21/17 07:00 Gran # 4.00 (1.4-6.5) 07/21/17 07:00 Lymph # (Auto) 2.4 (1.2-3.4) 07/21/17 07:00 [place] # (Auto) 0.3 (0.1-0.6) 07/21/17 07:00 Eos # (Auto) 0.1 (0.0-0.7) 07/21/17 07:00 Baso # (Auto) 0.01 K/mm3 (0.0-2.0) 07/21/17 07:00 Neutrophils % (Manual) 92 % (50.0-70.0) H 07/20/17 09:45 Lymphocytes % (Manual) 4 % (22.0-35.0) L 07/20/17 09:45 Monocytes % (Manual) 4 % (1.0-6.0) 07/20/17 09:45 Platelet Evaluation Normal (NORMAL) 07/20/17 09:45 Anisocytosis (manual) Slight 07/20/17 09:45 PT 11.6 SECONDS (9.4-12.5) 07/19/17 18:25 INR 1.02 (0.93-1.08) 07/19/17 18:25 APTT 32.4 Seconds (25.1-36.5) 07/19/17 18:25 pO2 40 mm/Hg (30-55) 07/19/17 18:25 VBG pH 7.26 (7.32-7.43) L 07/19/17 18:25 VBG pCO2 55.0 (40-60) 07/19/17 18:25 VBG HCO3 24.7 mmol/l (21-28) 07/19/17 18:25 VBG Total CO2 26.4 mmol.L (22-28) 07/19/17 18:25 VBG O2 Sat (Calc) 77.7 % (40-65) H 07/19/17 18:25 VBG Base Excess -3.2 mmol/L (0.0-2.0) L 07/19/17 18:25 VBG Potassium 4.2 mmol/L (3.6-5.2) 07/19/17 18:25 Sodium 139.0 mmol/L (132-148) 07/19/17 18:25 Chloride 108.0 mmol/L (98-107) H 07/19/17 18:25 Glucose 126 mg/dl (65-105) H 07/19/17 18:25 Lactate 0.8 mmol/L (0.7-2.1) 07/19/17 18:25 FiO2 21.0 % 07/19/17 18:25 Sodium 140 mmol/L (132-148) 07/21/17 07:00 Potassium 3.9 mmol/L (3.6-5.0) 07/21/17 07:00 Chloride 113 mmol/L (98-107) H 07/21/17 07:00 Carbon Dioxide 20 mmol/L (21-33) L 07/21/17 07:00 Anion Gap 11 (10-20) 07/21/17 07:00 BUN 16 mg/dL (7-21) 07/21/17 07:00 Creatinine 0.7 mg/dl (0.7-1.2) 07/21/17 07:00 Est GFR ( Amer) > 60 07/21/17 07:00 Est GFR (Non-Af Amer) > 60 07/21/17 07:00 POC Glucose (mg/dL) 153 mg/dL (65-110) H 07/21/17 12:16 Random Glucose 87 mg/dL (70-110) 07/21/17 07:00 Calcium 8.8 mg/dL (8.4-10.5) 07/21/17 07:00 Total Bilirubin 0.2 mg/dL (0.2-1.3) 07/21/17 07:00 AST 45 U/L (14-36) H D 07/21/17 07:00 ALT 49 U/L (7-56) 07/21/17 07:00 Alkaline Phosphatase 68 U/L (38-126) 07/21/17 07:00 Lactate Dehydrogenase 535 U/L (333-699) 07/19/17 18:25 Total Creatine Kinase 103 U/L (35-230) 07/19/17 18:25 Troponin I < 0.01 ng/mL 07/19/17 18:25 NT-Pro-B Natriuret Pep 53.9 pg/mL (0-450) 07/19/17 18:25 Total Protein 5.8 g/dL (5.8-8.3) 07/21/17 07:00 Albumin 3.1 g/dL (3.0-4.8) 07/21/17 07:00 Globulin 2.7 gm/dL 07/21/17 07:00 Albumin/Globulin Ratio 1.2 (1.1-1.8) 07/21/17 07:00 Venous Blood Potassium 4.2 mmol/L (3.6-5.2) 07/19/17 18:25 Urine Color Yellow (YELLOW) 07/19/17 20:30 Urine Appearance Clear (CLEAR) 07/19/17 20:30 Urine pH 5.5 (4.7-8.0) 07/19/17 20:30 Ur Specific [place] >= 1.030 (1.005-1.035) 07/19/17 20:30 Urine Protein Negative mg/dL (<30 mg/dL) 07/19/17 20:30 Urine Glucose (UA) Negative mg/dL (NEGATIVE) 07/19/17 20:30 Urine Ketones Negative mg/dL (NEGATIVE) 07/19/17 20:30 Urine Blood Negative (NEGATIVE) 07/19/17 20:30 Urine Nitrate Negative (NEGATIVE) 07/19/17 20:30 Urine Bilirubin Negative (NEGATIVE) 07/19/17 20:30 Urine Urobilinogen 0.2 E.U./dL (<1 E.U./dL) 07/19/17 20:30 Ur Leukocyte Esterase Negative [place]/uL (NEGATIVE) 07/19/17 20:30 Urine Opiates Screen Positive (NEGATIVE) H 07/19/17 20:30 Urine Methadone Screen No result (NEGATIVE) 07/19/17 20:30 Ur Barbiturates Screen Negative (NEGATIVE) 07/19/17 20:30 Ur Phencyclidine Scrn Negative (NEGATIVE) 07/19/17 20:30 Ur Amphetamines Screen Negative (NEGATIVE) 07/19/17 20:30 U Benzodiazepines Scrn Negative (NEGATIVE) 07/19/17 20:30 U Oth Cocaine Metabols Negative (NEGATIVE) 07/19/17 20:30 U Cannabinoids Screen Negative (NEGATIVE) 07/19/17 20:30 Alcohol, Quantitative < 10 mg/dL (0-10) 07/19/17 19:30 Influenza Typ A,B (EIA) Negative for flu a/b (NEGATIVE) 07/19/17 21:27 - Hospital Course Hospital Course: 61 year old female with past medical history of HLD, hypertension, diabetes, COPD, bronchitis and anxiety presented with cough. Patient states the cough began couple of weeks ago and had been persistent. She states the cough was dry , and non productive but persistent. Patient was admitted for COPD exacerbation. A Chest X-Ray showed NAD. An EKG showed NSR at 88bpm. Zithromax 500mg IVPB QD, Duonebs Q4H COCO and Q2H PRN, Solu-Medrol 40mg IV QD, Mucinex-DM 600-30mg, Pulmicort, Brovana and Supplemental Oxygen via NC at 2 L/min were all started and continued. Tobacco cessation counseling was provided. Her DM2 was managed by SSI-Low and accuchecks. Her home atenolol was continued for HTN. Home lipitor was started for HLD. Protonix and SCD's were given for prophylaxis. Patient was found to have grossly normal labs and flu serology was negative. Patient improved clinically and remained afebrile and HDS. She was discharged on 07/21/17 with prescriptions for symbicort, pulmicort, albuterol, prednisone and zithromax and with instructions to follow up with her PMD. - Date & Time of H&P Date of H&P: 07/19/17 Time of H&P: 22:14 Discharge Exam - Head Exam Head Exam: ATRAUMATIC, NORMAL INSPECTION, NORMOCEPHALIC - Eye Exam Eye Exam: EOMI, Normal appearance, PERRL Pupil Exam: NORMAL ACCOMODATION, PERRL - Respiratory Exam Respiratory Exam: Clear to PA & Lateral, NORMAL BREATHING PATTERN, UNREMARKABLE - Cardiovascular Exam Cardiovascular Exam: REGULAR RHYTHM - GI/Abdominal Exam GI & Abdominal Exam: Normal Bowel Sounds, Unremarkable - Extremities Exam Extremities exam: full ROM, normal capillary refill, normal inspection, pedal pulses present Additional comments: Homans sign negative b/l - Neurological Exam Neurological exam: Alert, CN II-XII Intact, Normal Gait, Oriented x3, Reflexes Normal - Psychiatric Exam Psychiatric exam: Normal Affect, Normal Mood - Skin Skin Exam: Dry, Intact, Normal Color, Warm Discharge Plan - Discharge Medications Prescriptions: Albuterol HFA [Ventolin HFA 90 mcg/actuation (8 g)] 1 puff IH PRN PRN #1 inhaler PRN Reason: wheezing Azithromycin [Zithromax] 500 mg PO DAILY #3 tab Budesonide [Pulmicort Flexhaler] 90 mcg IH BID #1 aer.pow.ba Budesonide/Formoterol Fumarate [Symbicort 80-4.5 Mcg Inhaler] 10.2 gm IH DAILY # 1 hfa.aer.ad predniSONE [predniSONE Tab] 40 mg PO DAILY #4 tab - Follow Up Plan Condition: FAIR Disposition: HOME/ ROUTINE Instructions: Albuterol (By breathing), Budesonide (By breathing), Budesonide/ Formoterol (By breathing), COPD (Chronic Obstructive Pulmonary Disease) (DC), Chronic Lung Disease and Infection Prevention (DC) Additional Instructions: Please follow up with your primary care doctor within one week Please take all medications as prescribed If your symptoms should persist or worsen, please seek emergency medical attention Referrals: Jennifer Carrizales MD [Primary Care Provider] - <Jn Lopez - Last Filed: 07/21/17 18:54> Provider - Provider Date of Admission: 07/19/17 20:22 Attending physician: Jn Lopez MD Primary care physician: Jennifer Carrizales MD Time Spent in preparation of Discharge (in minutes): 35 Hospital Course - Lab Results Lab Results: Micro Results 07/19/17 20:30 Urine Urine Culture - Final No Growth (<1,000 CFU/ML) Most Recent Lab Values WBC 6.7 10^3/ul (4.5-11.0) D 07/21/17 07:00 RBC 3.85 10^6/uL (3.5-6.1) 07/21/17 07:00 Hgb 11.2 g/dL (12.0-16.0) L 07/21/17 07:00 Hct 34.9 % (36.0-48.0) L 07/21/17 07:00 MCV 90.6 fl (80.0-105.0) 07/21/17 07:00 MCH 29.1 pg (25.0-35.0) 07/21/17 07:00 MCHC 32.1 g/dl (31.0-37.0) 07/21/17 07:00 RDW 13.7 % (11.5-14.5) 07/21/17 07:00 Plt Count 271 10^3/uL (120.0-450.0) 07/21/17 07:00 MPV 10.0 fl (7.0-11.0) 07/21/17 07:00 Gran % 59.4 % (50.0-68.0) 07/21/17 07:00 Lymph % (Auto) 35.5 % (22.0-35.0) H 07/21/17 07:00 [place] % (Auto) 4.3 % (1.0-6.0) 07/21/17 07:00 Eos % (Auto) 0.7 % (1.5-5.0) L 07/21/17 07:00 Baso % (Auto) 0.1 % (0.0-3.0) 07/21/17 07:00 Gran # 4.00 (1.4-6.5) 07/21/17 07:00 Lymph # (Auto) 2.4 (1.2-3.4) 07/21/17 07:00 [place] # (Auto) 0.3 (0.1-0.6) 07/21/17 07:00 Eos # (Auto) 0.1 (0.0-0.7) 07/21/17 07:00 Baso # (Auto) 0.01 K/mm3 (0.0-2.0) 07/21/17 07:00 Neutrophils % (Manual) 92 % (50.0-70.0) H 07/20/17 09:45 Lymphocytes % (Manual) 4 % (22.0-35.0) L 07/20/17 09:45 Monocytes % (Manual) 4 % (1.0-6.0) 07/20/17 09:45 Platelet Evaluation Normal (NORMAL) 07/20/17 09:45 Anisocytosis (manual) Slight 07/20/17 09:45 PT 11.6 SECONDS (9.4-12.5) 07/19/17 18:25 INR 1.02 (0.93-1.08) 07/19/17 18:25 APTT 32.4 Seconds (25.1-36.5) 07/19/17 18:25 pO2 40 mm/Hg (30-55) 07/19/17 18:25 VBG pH 7.26 (7.32-7.43) L 07/19/17 18:25 VBG pCO2 55.0 (40-60) 07/19/17 18:25 VBG HCO3 24.7 mmol/l (21-28) 07/19/17 18:25 VBG Total CO2 26.4 mmol.L (22-28) 07/19/17 18:25 VBG O2 Sat (Calc) 77.7 % (40-65) H 07/19/17 18:25 VBG Base Excess -3.2 mmol/L (0.0-2.0) L 07/19/17 18:25 VBG Potassium 4.2 mmol/L (3.6-5.2) 07/19/17 18:25 Sodium 139.0 mmol/L (132-148) 07/19/17 18:25 Chloride 108.0 mmol/L (98-107) H 07/19/17 18:25 Glucose 126 mg/dl (65-105) H 07/19/17 18:25 Lactate 0.8 mmol/L (0.7-2.1) 07/19/17 18:25 FiO2 21.0 % 07/19/17 18:25 Sodium 140 mmol/L (132-148) 07/21/17 07:00 Potassium 3.9 mmol/L (3.6-5.0) 07/21/17 07:00 Chloride 113 mmol/L (98-107) H 07/21/17 07:00 Carbon Dioxide 20 mmol/L (21-33) L 07/21/17 07:00 Anion Gap 11 (10-20) 07/21/17 07:00 BUN 16 mg/dL (7-21) 07/21/17 07:00 Creatinine 0.7 mg/dl (0.7-1.2) 07/21/17 07:00 Est GFR ( Amer) > 60 07/21/17 07:00 Est GFR (Non-Af Amer) > 60 07/21/17 07:00 POC Glucose (mg/dL) 153 mg/dL (65-110) H 07/21/17 12:16 Random Glucose 87 mg/dL (70-110) 07/21/17 07:00 Calcium 8.8 mg/dL (8.4-10.5) 07/21/17 07:00 Total Bilirubin 0.2 mg/dL (0.2-1.3) 07/21/17 07:00 AST 45 U/L (14-36) H D 07/21/17 07:00 ALT 49 U/L (7-56) 07/21/17 07:00 Alkaline Phosphatase 68 U/L (38-126) 07/21/17 07:00 Lactate Dehydrogenase 535 U/L (333-699) 07/19/17 18:25 Total Creatine Kinase 103 U/L (35-230) 07/19/17 18:25 Troponin I < 0.01 ng/mL 07/19/17 18:25 NT-Pro-B Natriuret Pep 53.9 pg/mL (0-450) 07/19/17 18:25 Total Protein 5.8 g/dL (5.8-8.3) 07/21/17 07:00 Albumin 3.1 g/dL (3.0-4.8) 07/21/17 07:00 Globulin 2.7 gm/dL 07/21/17 07:00 Albumin/Globulin Ratio 1.2 (1.1-1.8) 07/21/17 07:00 Venous Blood Potassium 4.2 mmol/L (3.6-5.2) 07/19/17 18:25 Urine Color Yellow (YELLOW) 07/19/17 20:30 Urine Appearance Clear (CLEAR) 07/19/17 20:30 Urine pH 5.5 (4.7-8.0) 07/19/17 20:30 Ur Specific [place] >= 1.030 (1.005-1.035) 07/19/17 20:30 Urine Protein Negative mg/dL (<30 mg/dL) 07/19/17 20:30 Urine Glucose (UA) Negative mg/dL (NEGATIVE) 07/19/17 20:30 Urine Ketones Negative mg/dL (NEGATIVE) 07/19/17 20:30 Urine Blood Negative (NEGATIVE) 07/19/17 20:30 Urine Nitrate Negative (NEGATIVE) 07/19/17 20:30 Urine Bilirubin Negative (NEGATIVE) 07/19/17 20:30 Urine Urobilinogen 0.2 E.U./dL (<1 E.U./dL) 07/19/17 20:30 Ur Leukocyte Esterase Negative [place]/uL (NEGATIVE) 07/19/17 20:30 Urine Opiates Screen Positive (NEGATIVE) H 07/19/17 20:30 Urine Methadone Screen No result (NEGATIVE) 07/19/17 20:30 Ur Barbiturates Screen Negative (NEGATIVE) 07/19/17 20:30 Ur Phencyclidine Scrn Negative (NEGATIVE) 07/19/17 20:30 Ur Amphetamines Screen Negative (NEGATIVE) 07/19/17 20:30 U Benzodiazepines Scrn Negative (NEGATIVE) 07/19/17 20:30 U Oth Cocaine Metabols Negative (NEGATIVE) 07/19/17 20:30 U Cannabinoids Screen Negative (NEGATIVE) 07/19/17 20:30 Alcohol, Quantitative < 10 mg/dL (0-10) 07/19/17 19:30 Influenza Typ A,B (EIA) Negative for flu a/b (NEGATIVE) 07/19/17 21:27 Attending/Attestation - Attestation I have personally seen and examined this patient.: Yes I have fully participated in the care of the patient.: Yes I have reviewed all pertinent clinical information, including history, physical exam and plan: Yes Notes (Text): 07/21/17 18:53 Patient was seen and examined with back office medical assistant. Agreed with assessment and plan. 61 yrs old female with COPD exacerbation, improving. Patient will be discharged home on albuterol inhaler, steroid inhaler and prednisone. The issue of ongoing smoking was discussed in detail with the patient.Smoking cessation counseling was done Management plan was discussed in detail with patient. Education was provided.
[2017-07-21] MEDS ORDERED: Arformoterol 15 mcg/2 ml Inh Sol IH SCH (20:00)
[2017-07-21] MEDS ORDERED: Budesonide 0.5 mg/2 ml Inhal Susp UD IH SCH (20:00)
== END 2017-07-21 13:59 | disposition home or self-care (01) | DRG 88 ==
LOC: ED 17:30 → ERH 20:22 → 5RNO 22:42
PROVIDERS: ADMIT Internal Medicine; ATTEND Internal Medicine
DX: J44.1 Chronic obstructive pulmonary disease with (acute) exacerbation (principal); E11.9 Type 2 diabetes mellitus without complications; E78.5 Hyperlipidemia, unspecified; F41.8 Other specified anxiety disorders; I10 Essential (primary) hypertension; F17.210 Nicotine dependence, cigarettes, uncomplicated

== ENCOUNTER 2017-08-14 12:58 | Emergency (ER) | payer MEDICAID ==
[2017-08-14 13:07] VITALS: BMI 24.5
--- NOTE | 2017-08-14 13:18 | ED PDOC ---
Arrival/HPI - General Chief Complaint: Substance Abuse Time Seen by Provider: 08/14/17 13:12 Historian: Patient - History of Present Illness Narrative History of Present Illness (Text): 08/14/17 13:18 A 61 year old female, whose past medical history includes hypertension and COPD , brought into the emergency department by EMS for substance abuse. EMS reports patient was found sleeping on someone's porch steps. Patient was unresponsive with labor breathing, and was given Narcan 0.8 mg IV. On evaluation, patient admits using heroin this morning. Patient denies any trauma, injuries, fever, chills, nausea, vomiting, abdominal pain, chest pain, shortness of breath, headache, dizziness, suicidal ideation, homicidal ideation, hallucinations or any other complaints. Time/Duration: Prior to Arrival Past Medical History - Provider Review Nursing Documentation Reviewed: Yes - Infectious Disease Hx of Infectious Diseases: None - Reproductive Menopause: Yes - Cardiac Hx Cardiac Disorders: Yes Hx Hypertension: Yes - Pulmonary Hx Respiratory Disorders: Yes Hx Bronchitis: Yes Hx Chronic Obstructive Pulmonary Disease (COPD): Yes Hx Emphysema: Yes Hx Pneumonia: Yes Hx Respiratory Tract Infection: Yes - Neurological Hx Neurological Disorder: Yes Hx Dizziness: Yes Hx Migraine: Yes - HEENT Hx HEENT Disorder: Yes (blurred vision) Hx Epistaxis: Yes - Renal Hx Renal Disorder: No - Endocrine/Metabolic Hx Endocrine Disorders: Yes Hx Diabetes Mellitus Type 2: Yes (hx of) Hx Hyperthyroidism: Yes - Hematological/Oncological Hx Blood Disorders: Yes Hx AIDS: No Hx Anemia: Yes - Integumentary Hx Dermatological Disorder: No - Musculoskeletal/Rheumatological Hx Musculoskeletal Disorders: No Hx Arthritis: No Hx Back Pain: No Hx Degenerative Joint Disease: No Hx Falls: No Hx Fractures: No Hx Gout: No Hx Herniated Disk: No Hx Myasthenia Gravis: No Hx Osteoarthritis: No Hx Osteomyelitis: No Hx Osteoporosis: No Hx Rhabdomyolysis: No Hx Spinal Stenosis: No Hx Unsteady Gait: No - Gastrointestinal Hx Gastrointestinal Disorders: No Hx Colostomy: No Hx Crohn's Disease: No Hx Diverticulitis: No Hx Gall Bladder Disease: No Hx Gastroesophageal Reflux: No Hx Ileostomy: No Hx Liver Failure: No Hx Pancreatitis: No HX Swallowing Problems: No - Genitourinary/Gynecological Hx Genitourinary Disorders: Yes Hx Hematuria: No Hx Sexually Transmitted Diseases: No Hx Urinary Tract Infection: Yes - Psychiatric Hx Psychophysiologic Disorder: Yes Hx Anxiety: Yes Hx Bipolar Disorder: Yes Hx Depression: Yes Hx Emotional Abuse: No Hx Hallucinations: Yes Hx Panic Disorder: Yes Hx Post Traumatic Stress Disorder: Yes Hx Psychosis: No Hx Physical Abuse: No Hx Schizophrenia: No Hx Sexual Abuse: No Hx Substance Use: Yes - Surgical History Hx Amputation: No Hx Appendectomy: No Hx Cholecystectomy: No Hx Gastric Bypass Surgery: No Hx Hysterectomy: No Hx Joint Replacement: No Hx Kidney Transplant: No Hx Liver Transplant: No Hx Mastectomy: No Hx Musculoskeletal Surgery: No Hx Open Heart Surgery: No Hx Orthopedic Surgery: No Hx Splenectomy: No Hx Valve Replacement: No - Anesthesia Hx Anesthesia: Yes Hx Anesthesia Reactions: No Hx Malignant Hyperthermia: No Family/Social History - Physician Review Nursing Documentation Reviewed: Yes Family/Social History: No Known Family HX Smoking Status: Light Smoker < 10 Cigarettes Daily Hx Alcohol Use: No Hx Substance Use: Yes Allergies/Home Meds Allergies/Adverse Reactions: Allergies Penicillins Allergy (Verified 08/14/17 13:27) RASH sulfur Allergy (Uncoded 08/14/17 13:27) RASH Review of Systems - Physician Review All systems were reviewed & negative as marked: Yes - Review of Systems Constitutional: absent: Fevers, Night Sweats Respiratory: absent: SOB Cardiovascular: absent: Chest Pain Gastrointestinal: absent: Abdominal Pain, Nausea, Vomiting Neurological: absent: Headache, Dizziness Psychiatric: absent: Suicidal Ideation, Other (Homicidal ideation, Hallucinations) Physical Exam Vital Signs Reviewed: Yes Vital Signs Temp Pulse Resp BP Pulse Ox 08/14/17 16:04 74 18 152/58 H 95 08/14/17 14:20 80 16 149/87 98 08/14/17 13:24 97.9 F 88 17 150/57 L 97 Temperature: Afebrile Blood Pressure: Hypotensive Pulse: Regular Respiratory Rate: Normal Appearance: Positive for: Well-Appearing, Non-Toxic, Comfortable Pain Distress: None Mental Status: Positive for: Alert and Oriented X 3 - Systems Exam Head: Present: Atraumatic, Normocephalic Pupils: Present: PERRL Extroacular Muscles: Present: EOMI Conjunctiva: Present: Normal Mouth: Present: Moist Mucous Membranes Neck: Present: Normal Range of Motion Respiratory/Chest: Present: Clear to Auscultation, Good Air Exchange. No: Respiratory Distress, Accessory Muscle Use Cardiovascular: Present: Regular Rate and Rhythm, Normal S1, S2. No: Murmurs Abdomen: Present: Normal Bowel Sounds. No: Tenderness, Distention, Peritoneal Signs Back: Present: Normal Inspection Upper Extremity: Present: Normal Inspection. No: Cyanosis, Edema Lower Extremity: Present: Normal Inspection. No: Edema Neurological: Present: GCS=15, CN II-XII Intact, Speech Normal Skin: Present: Warm, Dry, Normal Color. No: Rashes Psychiatric: Present: Alert, Oriented x 3, Normal Insight, Normal Concentration Medical Decision Making ED Course and Treatment: 08/14/17 13:18 Impression: A 61 year old female brought in for substance abuse. Patient admits to using heroin this morning. Differential Diagnosis included but are not limited to: Heroin abuse Plan: -- Labs -- Urinalysis -- Reassess and disposition Progress Notes: EKG shows NSR at [address]-segment elevations, normal intervals, normal axis. Interpreted by me. 08/14/17 17:08 Patient was reevaluated in the ED. She is AAOx3. Has capacity to make decisions. Lungs clear. Vitals signs normal. She states that she took heroine sniff. She denies SI or HI. She will continue with her drug program and will try to stop taking drugs. She was advised to f/u with the clinic and return to the ED if symptoms worsen or any other concern. - Lab Interpretations Lab Results: 08/14/17 14:03 08/14/17 15:00 Lab Results 08/14/17 15:00: Alcohol, Quantitative < 10 08/14/17 15:00: Salicylates < 1 L, Acetaminophen < 10.0 L 08/14/17 15:00: Sodium 141, Potassium 4.5, Chloride 105, Carbon Dioxide 25, Anion Gap 15, BUN 21, Creatinine 0.8, Est GFR ( Amer) > 60, Est GFR (Non- Af Amer) > 60, Random Glucose 106, Calcium 9.7, Total Bilirubin 0.4, AST 23, ALT 31, Alkaline Phosphatase 92, Total Protein 7.3, Albumin 4.2, Globulin 3.1, Albumin/Globulin Ratio 1.4 08/14/17 14:03: WBC 13.7 H D, RBC 4.58, Hgb 14.1 D, Hct 42.2, MCV 92.1, MCH 30.8, MCHC 33.4, RDW 14.0, Plt Count 234, MPV 10.7, Gran % 79.0 H, Lymph % (Auto ) 11.1 L, [place] % (Auto) 3.1, Eos % (Auto) 6.6 H, Baso % (Auto) 0.2, Gran # 10.86 H, Lymph # (Auto) 1.5, [place] # (Auto) 0.4, Eos # (Auto) 0.9 H, Baso # (Auto ) 0.03 - Scribe Statement The provider has reviewed the documentation as recorded by the Scribe Luz Elena Damico Provider Scribe Attestation: All medical record entries made by the Scribe were at my direction and personally dictated by me. I have reviewed the chart and agree that the record accurately reflects my personal performance of the history, physical exam, medical decision making, and the department course for this patient. I have also personally directed, reviewed, and agree with the discharge instructions and disposition. Disposition/Present on Arrival - Present on Arrival Any Indicators Present on Arrival: No History of DVT/PE: No History of Uncontrolled Diabetes: No Urinary Catheter: No History of Decub. Ulcer: No History Surgical Site Infection Following: None - Disposition Have Diagnosis and Disposition been Completed?: Yes Diagnosis: Opiate overdose Disposition: HOME/ ROUTINE Disposition Time: 17:00 Patient Plan: Discharge Condition: IMPROVED Discharge Instructions (ExitCare): Narcotic Overdose Additional Instructions: Ms Martinez, thank you for letting us take care of you today. Your provider was Dr. Espinosa. You were treated for Opiate Overdose. The emergency medical care you received today was directed at your acute symptoms. If you were prescribed any medication, please fill it and take as directed. It may take several days for your symptoms to resolve. Return to the Emergency Department if your symptoms worsen, do not improve, or if you have any other problems. Please contact your doctor or call one of the physicians/clinics you have been referred to that are listed on the Patient Visit Information form that is included in your discharge packet. Bring any paperwork you were given at discharge with you along with any medications you are taking to your follow up visit. Our treatment cannot replace ongoing medical care by a primary care provider (PCP) outside of the emergency department. Thank you for allowing the [facility] team to be part of your care today. If you had an X-Ray or CT scan: A Radiologist will review the ED reading if any change in treatment is needed we will contact you. If you had a blood, urine, or wound culture: It will take several days for the results, if any change in treatment is needed we will contact you. If you had an STI test: It will take 48 hours for the results. Please call after 1 week if you have not heard back. Referrals: [facility] [place] - Follow up with primary Forms: [employer] (Czech), WORK NOTE
[2017-08-14 13:26] VITALS: TEMP 97.9
[2017-08-14 14:27] LABS: BASO # 0.03 K/mm3 (0.0-2.0); BASO % 0.2 % (0.0-3.0); EOS # 0.9 (0.0-0.7); EOS % 6.6 % (1.5-5.0); GRAN # 10.86 (1.4-6.5); HEMOGLOBIN 14.1 g/dL (12.0-16.0); LYMPH # 1.5 (1.2-3.4); LYMPH % 11.1 % (22.0-35.0); MEAN CELL VOLUME 92.1 fl (80.0-105.0); MEAN CORPUSCULAR HEMOGLOBIN 30.8 pg (25.0-35.0); MEAN CORPUSCULAR HGB CONC 33.4 g/dl (31.0-37.0); MEAN PLATELET VOLUME 10.7 fl (7.0-11.0); MONO # 0.4 (0.1-0.6); MONO % 3.1 % (1.0-6.0); RBC 4.58 10^6/uL (3.5-6.1); WHITE BLOOD COUNT 13.7 10^3/ul (4.5-11.0)
[2017-08-14 15:41] LABS: ACETAMINOPHEN < 10.0 ug/ml (10.0-20.0); SALICYLATE < 1 mg/dL (2.0-20.0)
[2017-08-14 16:01] LABS: ALB/GLOB RATIO 1.4 (1.1-1.8); ALBUMIN 4.2 g/dL (3.0-4.8); ALT/SGPT 31 U/L (7-56); AST/SGOT 23 U/L (14-36); BLOOD UREA NITROGEN 21 mg/dL (7-21); CALCIUM 9.7 mg/dL (8.4-10.5); GFR AFRICAN-AMERICAN > 60; GFR NON-AFRICAN AMERICAN > 60
[2017-08-14 16:06] VITALS: BP 152/58; PULSE 74; RESP 18; O2SAT 95
--- NOTE | 2017-08-15 17:58 | CARD ---
APPROVED REPORT EKG Measurement Heart [id number] <Conclusion> Normal sinus rhythm Normal ECG
== END 2017-08-14 16:09 | disposition home or self-care (01) ==
LOC: ED 12:58
DX: T40.601A Poisoning by unspecified narcotics, accidental (unintentional), initial encounter (principal); Y92.89 Other specified places as the place of occurrence of the external cause; E11.9 Type 2 diabetes mellitus without complications; F17.210 Nicotine dependence, cigarettes, uncomplicated; I10 Essential (primary) hypertension; J44.9 Chronic obstructive pulmonary disease, unspecified

== ENCOUNTER 2017-10-09 13:48 | Inpatient (IN) | payer MEDICAID ==
[2017-10-09 14:08] VITALS: BMI 27.1
[2017-10-09] MEDS ORDERED: Naloxone 0.4 mg/ml Inj (Adult) ONE ×3 (14:27→17:36)
[2017-10-09] MEDS ORDERED: Naloxone 0.4 mg/ml Inj (Adult) IVP STA ×3 (14:35→18:08)
[2017-10-09] MEDS ORDERED: TDAP Vaccine 0.5 mL Syr IM ONE (14:35)
--- NOTE | 2017-10-09 14:40 | ED PDOC ---
Arrival/HPI - General Chief Complaint: Substance Abuse Time Seen by Provider: 10/09/17 14:27 - Critical Care Critical Care Minutes: 60 minutes Narrative Critical Care (Text): Required frequent re-evaluation for hypoxia and involvement of ICU. - History of Present Illness Narrative History of Present Illness (Text): 61 y/o F c PMHx heroin abuse BIBEMS after being found outside having fallen. Patient reports heroin use 5 bags today. Full HPI/ROS unobtainable secondary to patient's altered mental status. Past Medical History - Infectious Disease Hx of Infectious Diseases: None - Cardiac Hx Cardiac Disorders: Yes Hx Hypertension: Yes - Pulmonary Hx Respiratory Disorders: Yes Hx Bronchitis: Yes Hx Chronic Obstructive Pulmonary Disease (COPD): Yes Hx Emphysema: Yes Hx Pneumonia: Yes Hx Respiratory Tract Infection: Yes - Neurological Hx Neurological Disorder: Yes Hx Dizziness: Yes Hx Migraine: Yes - HEENT Hx HEENT Disorder: Yes (blurred vision) Hx Epistaxis: Yes - Renal Hx Renal Disorder: No - Endocrine/Metabolic Hx Endocrine Disorders: Yes Hx Diabetes Mellitus Type 2: Yes (hx of) Hx Hyperthyroidism: Yes - Hematological/Oncological Hx Blood Disorders: Yes Hx AIDS: No Hx Anemia: Yes - Integumentary Hx Dermatological Disorder: No - Musculoskeletal/Rheumatological Hx Musculoskeletal Disorders: No - Gastrointestinal Hx Gastrointestinal Disorders: No - Genitourinary/Gynecological Hx Genitourinary Disorders: Yes Hx Urinary Tract Infection: Yes - Psychiatric Hx Psychophysiologic Disorder: Yes Hx Anxiety: Yes Hx Bipolar Disorder: Yes Hx Depression: Yes Hx Hallucinations: Yes Hx Panic Disorder: Yes Hx Post Traumatic Stress Disorder: Yes Hx Substance Use: Yes - Surgical History Hx Amputation: No Hx Appendectomy: No Hx Cholecystectomy: No Hx Gastric Bypass Surgery: No Hx Hysterectomy: No Hx Joint Replacement: No Hx Kidney Transplant: No Hx Liver Transplant: No Hx Mastectomy: No Hx Musculoskeletal Surgery: No Hx Open Heart Surgery: No Hx Orthopedic Surgery: No Hx Splenectomy: No Hx Valve Replacement: No - Anesthesia Hx Anesthesia: Yes Hx Anesthesia Reactions: No Hx Malignant Hyperthermia: No Family/Social History Family/Social History: No Known Family HX Smoking Status: Light Smoker < 10 Cigarettes Daily Hx Alcohol Use: No Hx Substance Use: Yes Allergies/Home Meds Allergies/Adverse Reactions: Allergies Penicillins Allergy (Verified 10/09/17 14:39) RASH sulfur Allergy (Uncoded 10/09/17 14:39) RASH Home Medications: Home Meds Medication Instructions Recorded Confirmed No Known Home Med 10/09/17 10/09/17 Review of Systems - Review of Systems Systems not reviewed;Unavailable: Altered Mental Status Physical Exam - Physical Exam Narrative Physical Exam (Text): Gen: Drowsy (awoke after narcan administration) Head: Abrasion to forehead and nose (no tenderness or report of pain) Eyes: (PERRL, no diplopia with EOMI) ENT: Dry MM (Denies malocclusion of jaw) Neck: (No midline tenderness Chest: (No tenderness) CV: Borderline tachycardic Resp: Hypoxic to 80s (Normal respirations, pulse oximetry normal) Abd: (No tenderness) Back: (No midline tenderness) Extremities: FROM x 4, no swelling Skin: Abrasions as above Neuro: Drowsy. (Alert, no focal deficit. Sensation to light touch intact in bilateral face) Vital Signs Temp Pulse Resp BP Pulse Ox 10/09/17 18:16 72 18 91/61 L 90 L 10/09/17 17:55 78 18 87/57 L 91 L 10/09/17 17:20 73 19 98/66 L 91 L 10/09/17 16:00 85 20 86/59 L 91 L 10/09/17 14:06 97.6 F 108 H 17 136/76 93 L Finger Stick Blood Glucose: 123 Medical Decision Making ED Course and Treatment: Narcan administered with return to mental baseline. Will observe in ED for recurrent respiratory depression. CT head to exclude ICH. Abrasions on skin, no lacerations. Tetanus updated and wounds dressed. CT Head IMPRESSION: No acute intracranial abnormalities. No significant findings to account for the clinical presentation. 10/09/17 16:12 Patient became drowsy, pulse ox 91%, pupils becoming pinpoint. Narcan 0.4 administered. 10/09/17 18:24 Patient became drowsy again, hypoxic to 80s. Narcan 0.4 administered with resolution. Will start drip, Dr. Espinoza accepts to ICU. Poison control called. - Lab Interpretations Lab Results: 10/09/17 14:30 10/09/17 14:30 Lab Results 10/09/17 14:30: Alcohol, Quantitative < 10 10/09/17 14:30: Salicylates < 1 L, Acetaminophen < 10.0 L 10/09/17 14:30: Sodium 144, Potassium 4.0, Chloride 109 H, Carbon Dioxide 25, Anion Gap 14, BUN 17, Creatinine 0.9, Est GFR ( Amer) > 60, Est GFR (Non- Af Amer) > 60, Random Glucose 134 H, Calcium 9.6, Total Bilirubin 0.3, AST 24, ALT 27, Alkaline Phosphatase 69, Total Protein 7.1, Albumin 4.3, Globulin 2.7, Albumin/Globulin Ratio 1.6 10/09/17 14:30: WBC 4.6 D, RBC 4.63, Hgb 13.9, Hct 41.0, MCV 88.6 D, MCH 30.0 , MCHC 33.9, RDW 14.1, Plt Count 250, MPV 9.9, Gran % 56.0, Lymph % (Auto) 35.5 H, [place] % (Auto) 3.9, Eos % (Auto) 4.4, Baso % (Auto) 0.2, Gran # 2.55, Lymph # (Auto) 1.6, [place] # (Auto) 0.2, Eos # (Auto) 0.2, Baso # (Auto) 0.01 10/09/17 14:22: POC Glucose (mg/dL) 123 H - RAD Interpretation Radiology Orders: 10/09/17 14:35 HEAD W/O CONTRAST [CT] Stat 10/09/17 17:45 CHEST PORTABLE [RAD] Stat - Medication Orders Current Medication Orders: Naloxone HCl 2.4 mg/ Sodium (Chloride) 246 mls @ 30.75 mls/hr IV .Q8H ONE PRN Reason: 0.3 MG/HR Stop: 10/10/17 01:59 Discontinued Medications Naloxone HCl (Narcan) 0.8 mg IVP STAT STA Stop: 10/09/17 14:36 Last Admin: 10/09/17 14:43 Dose: Naloxone HCl (Narcan) 0.4 mg IVP STAT STA Stop: 10/09/17 16:13 Last Admin: 10/09/17 16:15 Dose: Naloxone HCl (Narcan) 0.4 mg IVP STAT STA Stop: 10/09/17 18:09 Last Admin: 10/09/17 18:13 Dose: 0.4 mg IVP Administration Document 10/09/17 18:13 [place] (Rec: 10/09/17 18:13 [place] [id number]) Charges for Administration # of IVP Administrations 1 Tetanus/Reduced Diphtheria/Acell Pertussis (Boostrix Vaccine Inj) 0.5 ml IM .ONCE ONE Stop: 10/09/17 14:36 Last Admin: 10/09/17 14:57 Dose: 0.5 ml Immunization Registry Document 10/09/17 14:57 [facility] [place] (Rec: 10/09/17 14:57 [facility] [place] [id number]) Immunization Registry Consent Date 07/19/17 Disposition/Present on Arrival - Present on Arrival Any Indicators Present on Arrival: No History of DVT/PE: No History of Uncontrolled Diabetes: No Urinary Catheter: No History of Decub. Ulcer: No History Surgical Site Infection Following: None - Disposition Have Diagnosis and Disposition been Completed?: Yes Diagnosis: Narcotic-induced respiratory depression Disposition: HOSPITALIZED Disposition Time: 18:26 Patient Plan: ICU Condition: CRITICAL Referrals: Jennifer Carrizales MD [Primary Care Provider] - Follow up with primary Forms: INSOM[employer]IA (Chinese)
[2017-10-09 14:50] LABS: BASO # 0.01 K/mm3 (0.0-2.0); BASO % 0.2 % (0.0-3.0); EOS # 0.2 (0.0-0.7); EOS % 4.4 % (1.5-5.0); GRAN # 2.55 (1.4-6.5); HEMOGLOBIN 13.9 g/dL (12.0-16.0); LYMPH # 1.6 (1.2-3.4); LYMPH % 35.5 % (22.0-35.0); MEAN CELL VOLUME 88.6 fl (80.0-105.0); MEAN CORPUSCULAR HGB CONC 33.9 g/dl (31.0-37.0); MEAN PLATELET VOLUME 9.9 fl (7.0-11.0); MONO # 0.2 (0.1-0.6); MONO % 3.9 % (1.0-6.0); RBC 4.63 10^6/uL (3.5-6.1); RED CELL DISTRIBUTION WIDTH 14.1 % (11.5-14.5); WHITE BLOOD COUNT 4.6 10^3/ul (4.5-11.0)
[2017-10-09 15:01] LABS: ALB/GLOB RATIO 1.6 (1.1-1.8); ALBUMIN 4.3 g/dL (3.0-4.8); ALT/SGPT 27 U/L (7-56); AST/SGOT 24 U/L (14-36); BLOOD UREA NITROGEN 17 mg/dL (7-21); CALCIUM 9.6 mg/dL (8.4-10.5); GFR AFRICAN-AMERICAN > 60; GFR NON-AFRICAN AMERICAN > 60
[2017-10-09 15:02] LABS: ACETAMINOPHEN < 10.0 ug/ml (10.0-20.0); SALICYLATE < 1 mg/dL (2.0-20.0)
--- NOTE | 2017-10-09 16:01 | CT ---
PROCEDURE: CT HEAD WITHOUT CONTRAST. HISTORY: fall COMPARISON: None available. TECHNIQUE: Axial computed tomography images were obtained through the head/brain without intravenous contrast. Radiation dose: Total exam DLP = 852.32 mGy-cm. This CT exam was performed using one or more of the following dose reduction techniques: Automated exposure control, adjustment of the mA and/or kV according to patient size, and/or use of iterative reconstruction technique. FINDINGS: HEMORRHAGE: No intracranial hemorrhage. BRAIN: No mass effect or edema. No atrophy or chronic microvascular ischemic changes. VENTRICLES: Unremarkable. No hydrocephalus. CALVARIUM: Unremarkable. PARANASAL SINUSES: Unremarkable as visualized. No significant inflammatory changes. MASTOID AIR CELLS: Unremarkable as visualized. No inflammatory changes. OTHER FINDINGS: None. IMPRESSION: No acute intracranial abnormalities. No significant findings to account for the clinical presentation.
[2017-10-09] MEDS ORDERED: Naloxone 2.4 MG in Sodium Chloride 0.9% 240 ML IV ONE ×2 (18:00→18:34)
--- NOTE | 2017-10-09 18:44 | RAD ---
HISTORY: heroin overdose COMPARISON: 09/26/2017 FINDINGS: LUNGS: No active pulmonary disease. PLEURA: No significant pleural effusion identified, no pneumothorax apparent. CARDIOVASCULAR: Normal. OSSEOUS STRUCTURES: No significant abnormalities. VISUALIZED UPPER ABDOMEN: Normal. OTHER FINDINGS: None. IMPRESSION: No active disease.
[2017-10-09] MEDS ORDERED: Albuterol-Ipratrop 3 mg / 0.5 (3 ml) UD IH PRN (18:46)
--- NOTE | 2017-10-09 18:55 | CP.PCM.HP ---
<Romina Carlton - Last Filed: 10/09/17 20:30> History of Present Illness - History of Present Illness History of Present Illness: H&P For HospitalistIsabel PGY2 This is a 61yo female with past medical history of substance abuse (Heroin), COPD, depression, and dyslipidemia who was brought in by EMS. She was found in the street with abrasions on her face. Patient was seen in ED and was very lethargic. She was given several doses of Narcan and was eventually placed on Narcan drip. At time of interview, she stated that she snorted some heroin around noon and the next thing she remembered was being in the hospital. Head CT was found to be negative for acute intracranial pathology. She is an active smoker and noted to have some shortness of breath with clear to yellowish colored sputum for several days. She has been admitted for COPD exacerbation in the past. She denies chest pain, nausea/vomiting/diarrhea, fever/chills, dysuria /hematuria, numbness or tingling. Patient was A&O x 3 upon interview but still lethargic at times. Past medical history: substance abuse (Heroin), COPD, depression, dyslipidemia Past surgical history: Home meds: As per AUG- list updated and confirmed with [facility]- last filled 10/08/2017 Allergies: Penicillin and sulfur (both cause rash) Social history: Lives with sister, smokes 1ppd x >40yrs, snorts heroin for past 9 years, denies EtOH or other illicit drug use Present on Admission - Present on Admission Any Indicators Present on Admission: No Review of Systems - Review of Systems All systems: reviewed and no additional remarkable complaints except Review of Systems: 12 point ROS reviewed as per HPI Past Patient History - Infectious Disease Hx of Infectious Diseases: None - Past Social History Smoking Status: Light Smoker < 10 Cigarettes Daily - CARDIAC Hx Cardiac Disorders: Yes Hx Hypertension: Yes - PULMONARY Hx Respiratory Disorders: Yes Hx Bronchitis: Yes Hx Chronic Obstructive Pulmonary Disease (COPD): Yes Hx Emphysema: Yes Hx Pneumonia: Yes Hx Respiratory Tract Infection: Yes - NEUROLOGICAL Hx Neurological Disorder: Yes Hx Dizziness: Yes Hx Migraine: Yes - HEENT Hx HEENT Problems: Yes (blurred vision) Hx Epistaxis: Yes - RENAL Hx Chronic Kidney Disease: No - ENDOCRINE/METABOLIC Hx Endocrine Disorders: Yes Hx Diabetes Mellitus Type 2: Yes (hx of) Hx Hyperthyroidism: Yes - HEMATOLOGICAL/ONCOLOGICAL Hx Blood Disorders: Yes Hx AIDS: No Hx Anemia: Yes - INTEGUMENTARY Hx Dermatological Problems: No - MUSCULOSKELETAL/RHEUMATOLOGICAL Hx Musculoskeletal Disorders: No - GASTROINTESTINAL Hx Gastrointestinal Disorders: No - GENITOURINARY/GYNECOLOGICAL Hx Genitourinary Disorders: Yes Hx Urinary Tract Infection: Yes - PSYCHIATRIC Hx Psychophysiologic Disorder: Yes Hx Anxiety: Yes Hx Bipolar Disorder: Yes Hx Depression: Yes Hx Hallucinations: Yes Hx Panic Symptoms: Yes Hx Post Traumatic Stress Disorder: Yes Hx Substance Use: Yes - SURGICAL HISTORY Hx Amputation: No Hx Appendectomy: No Hx Cholecystectomy: No Hx Gastric Bypass Surgery: No Hx Hysterectomy: No Hx Joint Replacement: No Hx Kidney Transplant: No Hx Liver Transplant: No Hx Mastectomy: No Hx Musculoskeletal Surgery: No Hx Open Heart Surgery: No Hx Orthopedic Surgery: No Hx Splenectomy: No Hx Valve Replacement: No - ANESTHESIA Hx Anesthesia: Yes Hx Anesthesia Reactions: No Hx Malignant Hyperthermia: No Meds Allergies/Adverse Reactions: Allergies Allergy/AdvReac Type Severity Reaction Status Date / Time Penicillins Allergy RASH Verified 10/09/17 14:39 sulfur Allergy RASH Uncoded 10/09/17 14:39 Physical Exam - Constitutional Appears: No Acute Distress, Unkempt - Head Exam Head Exam: NORMOCEPHALIC Additional comments: abrasion on R forehead and R side nose - Eye Exam Eye Exam: EOMI, Normal appearance, PERRL Pupil Exam: Miosis, NORMAL ACCOMODATION - ENT Exam ENT Exam: Mucous Membranes Moist - Respiratory Exam Respiratory Exam: Wheezes (diffuse), NORMAL BREATHING PATTERN. absent: Rales, Rhonchi - Cardiovascular Exam Cardiovascular Exam: REGULAR RHYTHM, +S1, +S2. absent: Gallop, Rubs, Systolic Murmur - GI/Abdominal Exam GI & Abdominal Exam: Normal Bowel Sounds, Soft. absent: Mass, Rebound, Rigid, Tenderness - Extremities Exam Extremities exam: Positive for: normal inspection. Negative for: calf tenderness, pedal edema - Neurological Exam Neurological exam: CN II-XII Intact, Oriented x3 - Psychiatric Exam Psychiatric exam: Normal Affect, Normal Mood - Skin Skin Exam: Abrasion (on R side of face ), Dry, Warm Results - Vital Signs Recent Vital Signs: Last Vital Signs Temp 97.6 F 10/09/17 14:06 Pulse 72 10/09/17 18:16 Resp 18 10/09/17 18:16 BP 91/61 L 10/09/17 18:16 Pulse Ox 90 L 10/09/17 18:16 - Labs Result Diagrams: 10/09/17 14:30 10/09/17 14:30 Labs: Laboratory Results - last 24 hr 10/09/17 10/09/17 10/09/17 14:22 14:30 14:30 WBC 4.6 D RBC 4.63 Hgb 13.9 Hct 41.0 MCV 88.6 D MCH 30.0 MCHC 33.9 RDW 14.1 Plt Count 250 MPV 9.9 Gran % 56.0 Lymph % (Auto) 35.5 H [place] % (Auto) 3.9 Eos % (Auto) 4.4 Baso % (Auto) 0.2 Gran # 2.55 Lymph # (Auto) 1.6 [place] # (Auto) 0.2 Eos # (Auto) 0.2 Baso # (Auto) 0.01 Sodium 144 Potassium 4.0 Chloride 109 H Carbon Dioxide 25 Anion Gap 14 BUN 17 Creatinine 0.9 Est GFR ( Amer) > 60 Est GFR (Non-Af Amer) > 60 POC Glucose (mg/dL) 123 H Random Glucose 134 H Calcium 9.6 Total Bilirubin 0.3 AST 24 ALT 27 Alkaline Phosphatase 69 Total Protein 7.1 Albumin 4.3 Globulin 2.7 Albumin/Globulin Ratio 1.6 Salicylates Acetaminophen Alcohol, Quantitative 10/09/17 10/09/17 14:30 14:30 WBC RBC Hgb Hct MCV MCH MCHC RDW Plt Count MPV Gran % Lymph % (Auto) [place] % (Auto) Eos % (Auto) Baso % (Auto) Gran # Lymph # (Auto) [place] # (Auto) Eos # (Auto) Baso # (Auto) Sodium Potassium Chloride Carbon Dioxide Anion Gap BUN Creatinine Est GFR ( Amer) Est GFR (Non-Af Amer) POC Glucose (mg/dL) Random Glucose Calcium Total Bilirubin AST ALT Alkaline Phosphatase Total Protein Albumin Globulin Albumin/Globulin Ratio Salicylates < 1 L Acetaminophen < 10.0 L Alcohol, Quantitative < 10 - EKG Data EKG Interpreted by: Myself EKG shows normal: Sinus rhythm Rate: Tachycardia Assessment & Plan - Assessment and Plan (Free Text) Assessment: This is a 61yo female with past medical history of substance abuse (Heroin), COPD, depression, and dyslipidemia admitted for heroin overdose on Narcan drip and COPD exacerbation. Plan: Neuro: A&O x 3, but lethargic at times UDS pending Continue Narcan drip for next 12hrs- will re-evaluate in AM Maintain normothermia Cardio: EKG showed sinus tach, but BP was in 70s upon interview Hypotensive- pt on 1 NS@100 Possible hx of HTN, but not on any meds at home for BP Echo ordered Continue home dose of Lipitor for hx of dyslipidemia Pulm: COPD exacerbation Duoneb prn and louise Pulmicort Solumedrol [id number] CXR showed no evidence of aspiration or infiltrate ABG showed mild hypoxia, but pH and CO2 normal Aspiration precaution Maintain spO2>90% GI: NPO except meds due to lethargy Protonix daily Continue home med: Vitamin B and Vit D Heme: Hgb stable- no overt signs of bleeding Nephro: Cr normal Will monitor electrolytes and replace as needed ID: No sign of infection at this time Afebrile, no leukocytosis CXR was negative for aspiration Lactate low on ABG Endo: Remote hx of DM in previous notes Last A1c was 5.4 in 2017 and not on DM meds at home Will continue to monitor and maintain euglycemia Psych: Hx of depression Continue home meds: Buspar, Remeron, Abilify, Atarax, Requip tomorrow GI ppx: Protonix DVT ppx: Heparin SC Case seen, discussed and reviewed with attending. Isabel Carlton PGY2 - Date & Time Date: 10/09/17 Time: 20:47 <Kody Medina Q - Last Filed: 10/09/17 21:44> Results - Vital Signs Recent Vital Signs: Last Vital Signs Temp 97.6 F 10/09/17 14:06 Pulse 98 H 10/09/17 19:50 Resp 18 10/09/17 19:50 BP 93/58 L 10/09/17 19:50 Pulse Ox 99 10/09/17 19:50 - Labs Result Diagrams: 10/09/17 14:30 10/09/17 14:30 Labs: Laboratory Results - last 24 hr 10/09/17 10/09/17 19:30 20:06 pCO2 41 pO2 72.0 L HCO3 23.2 ABG pH 7.36 ABG Total CO2 24.5 ABG O2 Saturation 96.6 ABG Base Excess -2.2 L ABG Potassium 3.7 Sodium 139.0 Chloride 112.0 H Glucose 88 Lactate 0.4 L FiO2 21.0 Arterial Blood Potassium 3.7 Urine Opiates Screen Positive H Urine Methadone Screen Negative Ur Barbiturates Screen Negative Ur Phencyclidine Scrn Negative Ur Amphetamines Screen Negative U Benzodiazepines Scrn Positive U Oth Cocaine Metabols Negative U Cannabinoids Screen Negative Attending/Attestation - Attestation I have personally seen and examined this patient.: Yes I have fully participated in the care of the patient.: Yes I have reviewed all pertinent clinical information: Yes Notes (Text): 10/09/17 21:42 I agree with the above mentioned note and exam by the resident with the addition /exception of the followin61 y/o female with Depression, COPD, polysubstance abuse presented to the ED as an opiate overdose secondary to heroin use. Patient states she does not recall what happened and only recalls waking up in the ED; will continue on the narcan drip started in the ED as the patient is now arousable to verbal stimulus; ABG shows adequate ventilation. Will determine intent of heroin abuse/overuse/ overdose once the patient is more awake and alert; may consider psychiatric evaluation if intentional overdose. Patient will remain in the ICU overnight for closer monitoring. labs and images reviewed personally thus far case d/w dr. Dyer total time of care: 35 minutes
--- NOTE | 2017-10-09 19:10 | CARD ---
APPROVED REPORT EKG Measurement Heart [id number] <Conclusion> Sinus tachycardia Biatrial enlargement Nonspecific ST abnormality Abnormal ECG
[2017-10-09] MEDS: Albuterol-Ipratrop 3 mg / 0.5 (3 ml) UD IH SCH (19:34)
[2017-10-09 19:38] LABS: ARTERIAL BLOOD GAS HCO3 23.2 mmol/L (21-28); ARTERIAL BLOOD GAS O2 SAT 96.6 % (95-98); ARTERIAL BLOOD GAS PCO2 41 mm/Hg (35-45); ARTERIAL BLOOD GAS PH 7.36 (7.35-7.45); ARTERIAL BLOOD GAS TCO2 24.5 mmol.L (22-28)
[2017-10-09 20:46] LABS: BARBITURATES, UR NEGATIVE (NEGATIVE); BENZODIAZEPINES, UR POSITIVE (NEGATIVE); OPIATES, UR POSITIVE (NEGATIVE); PHENCYCLIDINE, UR NEGATIVE (NEGATIVE)
[2017-10-09] MEDS: Sodium Chloride 0.45% 1,000 ML IV SCH (21:00)
[2017-10-09] MEDS: MethylPREDNISolone 40 mg Vial IVP SCH (22:31)
[2017-10-10] MEDS: Albuterol-Ipratrop 3 mg / 0.5 (3 ml) UD IH SCH ×4 (01:54→19:28)
--- NOTE | 2017-10-10 04:24 | CON ---
DATE: 10/09/2017 HISTORY OF PRESENT ILLNESS: The patient was seen and examined at the bedside. She is a 61-year-old lady with history of COPD, questionable CHF and longstanding opiate abuse (as per patient, she is taking about 5 bags a day) who was found to be unresponsive on the street and was brought into [facility] ER for further management and monitoring. CT of the head was negative. The patient received 0.4 mg of Narcan with very good response; however, shortly thereafter she started to fall sleep again and when she did so, her oxygen level and blood pressure was going down as well. She received several dose of Narcan; however, her mental status and vital signs slipped down every time shortly thereafter. At present time, ER physician started the patient on Narcan drip and ICU consult was called for further management and monitoring. No nausea. No nausea. No diarrhea. No constipation. PAST MEDICAL HISTORY: (?) CHF, COPD. ALLERGIES: PENICILLINS AND SULFA. FAMILY HISTORY: Noncontributory. SOCIAL HISTORY: The patient is an active smoker. She smokes about one pack a day. She denies alcohol, however, snort heroin about 5 bags a day. REVIEW OF SYSTEM: Review of 12-organ system other than mentioned in history of present illness is negative. MEDICATIONS AT HOME: The patient uses inhalers; however, does not remember the names. She does not take any medicine other than inhalers. PHYSICAL EXAMINATION: VITAL SIGNS: Blood pressure 91/61, respiratory rate 18, heart rate 72, temperature 97.6, oxygen saturation 90% on room air. ENT: Head and neck atraumatic. LUNGS: Decreased breath sounds bilaterally. HEART: Regular rate and rhythm. S1, S2 normal. ABDOMEN: Soft, nontender, nondistended. MUSCULOSKELETAL: No C/C/E. There is some muscle wasting. SKIN: Dry. PSYCH: The patient is somnolent, however, easily arousable. Alert and awake when stimulated. LABORATORY DATA: WBC 4.6, hemoglobin 13.9, platelet count 250. Sodium 144, potassium 4, chloride 109, carbon dioxide 25, BUN 17, creatinine 0.9, glucose 134. Salicylates less than 1, acetaminophen less than 10. Alcohol less than 10. CT head showed no acute intracranial abnormalities. No significant findings to account for the clinical presentation. ASSESSMENT AND PLAN: A 61-year-old lady who is opiate user and who presented with altered mental status, somnolence, thought to be secondary to opiate overdose. She required multiple doses of Narcan and currently is on Narcan drip. Poison control was contacted by the ER physician (according to Dr. Cline). At the present time, the patient will be on Narcan drip, IV fluids, Accu-Chek every 4 hours. The patient will be going to ICU for vital signs monitoring. We will continue to target euvolemia, euglycemia, normothermia and oxygen saturation more than 98%. We will continue with deep vein thrombosis and gastrointestinal prophylaxis. Low threshold for intubation for airway protection if needed. ccm time 40 min Colt Espinoza MD [facility]
[2017-10-10 06:30] LABS: EOS % 0.4 % (1.5-5.0); GRAN # 4.38 (1.4-6.5); GRAN % 85.2 % (50.0-68.0); LYMPH # 0.7 (1.2-3.4); MEAN CELL VOLUME 89.3 fl (80.0-105.0); MEAN CORPUSCULAR HGB CONC 32.4 g/dl (31.0-37.0); MEAN PLATELET VOLUME 10.4 fl (7.0-11.0); MONO # 0.1 (0.1-0.6); MONO % 1.4 % (1.0-6.0); RBC 4.49 10^6/uL (3.5-6.1); RED CELL DISTRIBUTION WIDTH 14.3 % (11.5-14.5); WHITE BLOOD COUNT 5.1 10^3/ul (4.5-11.0)
[2017-10-10] MEDS: Budesonide 0.25 mg/2 ml Inhal Susp UD IH SCH (07:42)
[2017-10-10 07:44] LABS: ALB/GLOB RATIO 1.5 (1.1-1.8); ALBUMIN 3.8 g/dL (3.0-4.8); ALT/SGPT 27 U/L (7-56); AST/SGOT 22 U/L (14-36); BLOOD UREA NITROGEN 12 mg/dL (7-21); CALCIUM 8.8 mg/dL (8.4-10.5); GFR AFRICAN-AMERICAN > 60; GFR NON-AFRICAN AMERICAN > 60
--- NOTE | 2017-10-10 09:43 | CP.PCM.PN ---
Subjective - Date & Time of Evaluation Date of Evaluation: 10/10/17 Time of Evaluation: 09:40 - Subjective Subjective: Patient seen and examined this AM. No acute events reported overnight. Patient reports she does not remember the events leading up to her presentation to the hospital. Patient indicates she had snorted about 5 bags of heroin before presenting to hospital, this is more than her usual. Reports getting drugs from different supplier than usual. Denies chest pain, shortness of breath, abdominal pain, diarrhea, nausea, vomiting, fever, chills. Objective - Vital Signs/Intake and Output Vital Signs (last 24 hours): Temp Pulse Resp BP Pulse Ox 98.4 F 66 16 91/60 L 95 10/10/17 00:00 10/10/17 09:07 10/10/17 06:00 10/10/17 06:00 10/10/17 06:00 - Medications Medications: Current Medications Acetaminophen (Tylenol 325mg Tab) 650 mg PO Q6H PRN PRN Reason: Fever >100.4 F Albuterol/Ipratropium (Duoneb 3 Mg/0.5 Mg (3 Ml) Ud) 3 ml IH Q6H [facility] Last Admin: 10/10/17 07:42 Dose: 3 ml Albuterol/Ipratropium (Duoneb 3 Mg/0.5 Mg (3 Ml) Ud) 3 ml IH Q2H PRN PRN Reason: Shortness of Breath Aripiprazole (Abilify) 5 mg PO DAILY [facility] Atorvastatin Calcium (Lipitor) 20 mg PO DAILY [facility] Budesonide (Pulmicort Respules) 0.25 mg IH Q10DSIFF [facility] Last Admin: 10/10/17 07:42 Dose: 0.25 mg Buspirone HCl (Buspar) 7.5 mg PO DAILY [facility] PRN Reason: Protocol Cholecalciferol (Vitamin D) 1,000 intlu PO DAILY [facility] Heparin Sodium (Porcine) (Heparin) 5,000 units SC Q8H [facility] PRN Reason: Protocol Last Admin: 10/10/17 03:00 Dose: 5,000 units Hydroxyzine HCl (Atarax) 50 mg PO DAILY [facility] Sodium Chloride (Sodium Chloride 0.45%) 1,000 mls @ 100 mls/hr IV .Q10H [facility] Last Admin: 10/09/17 21:00 Dose: 100 mls/hr Methylprednisolone (Solu-Medrol) 40 mg IVP Q12 [facility] Last Admin: 10/09/17 22:31 Dose: 40 mg Mirtazapine (Remeron) 30 mg PO HS [facility] Non-Formulary Medication (Vitamin B Complex [Balance B-100]) 1 tab PO DAILY [facility] Pantoprazole Sodium (Protonix Inj) 40 mg IVP DAILY [facility] Ropinirole HCl (Requip) 5 mg PO HS [facility] - Labs Labs: 10/10/17 05:20 10/10/17 05:20 - Constitutional Appears: No Acute Distress - Head Exam Head Exam: ATRAUMATIC, NORMAL INSPECTION, NORMOCEPHALIC - Eye Exam Eye Exam: EOMI, PERRL - ENT Exam Additional comments: Poor dentition - Respiratory Exam Respiratory Exam: Rhonchi (bilateral ), NORMAL BREATHING PATTERN - Cardiovascular Exam Cardiovascular Exam: REGULAR RHYTHM, +S1, +S2 - GI/Abdominal Exam GI & Abdominal Exam: Soft, Normal Bowel Sounds. absent: Firm, Rigid, Tenderness - Extremities Exam Extremities Exam: Normal Capillary Refill. absent: Calf Tenderness, Pedal Edema - Neurological Exam Neurological Exam: Alert, Awake, Oriented x3 Additional comments: motor and sensory grossly intact, able to follow simple commands - Psychiatric Exam Psychiatric exam: Normal Affect, Normal Mood. absent: Agitated - Skin Skin Exam: Dry, Warm Additional comments: No IV track sagastume noted Assessment and Plan - Assessment and Plan (Free Text) Assessment: 61 yo female with past medical history of substance abuse (Heroin), COPD, depression, and dyslipidemia admitted for heroin overdose on Narcan gtt and COPD exacerbation. Patient observed overnight in ICU, narcan gtt discontinued and patient transfered to telemetry. Plan: Heroin Overdose Details: - Patient presentation lethargic - Multiple narcan administered, placed on narcan gtt which is dc at this point - Pt reports using more heroin than she usually does - Chronic history of heroin use (~9 years) Plan: - Narcan gtt discontinued - Monitor for withdrawl symptoms COPD Details: - Hx of COPD, not on home O2 - CXR showing no aspiration or infiltrate - ABG mild hypoxia, pH and CO2 normal Plan: - maintain's SaO2 >90% - Aspiration precaution - Solumedrol 40mg Q12 - Duonebs prn and louise - Pulmicort - Singulair DVT ppx: Heparin GI ppx: protonix Patient case and plan discussed and reviewed with attending Zarina Gamboa PGY-1
[2017-10-10] MEDS: Cholecalciferol 1,000 INTLU TAB PO SCH (10:23)
[2017-10-10] MEDS: Non Formulary Medication (Vitamin B Complex [Balance B-100] 1 TAB) PO SCH (10:23)
[2017-10-10] MEDS: Sodium Chloride 0.45% 1,000 ML IV SCH (10:24)
[2017-10-10] MEDS: MethylPREDNISolone 40 mg Vial IVP SCH ×2 (10:25→21:26)
--- NOTE | 2017-10-10 10:51 | CP.CCUPN ---
<Mirian Roman - Last Filed: 10/10/17 11:06> CCU Subjective - Physician Review Events Since Last Encounter (Free Text): 10/10/17 10:48 Off Narcan drip Subjective (Free Text): 10/10/17 10:48 Patient seen and examined at bedside. Denies fever, chills, nausea, vomiting, body aches, confusion/lethargy, abdominal pain, diarrhea, leg swelling. Critical Care Time Spent (in minutes): 45 CCU Objective - Vital Signs / Intake & Output Vital Signs (Last 4 hours): Vital Signs Pulse 10/10/17 09:07 66 10/10/17 07:47 63 Intake and Output (Last 8hrs): Intake & Output 10/09/17 10/10/17 10/10/17 22:59 06:59 14:59 Weight 152 lb 144 lb 12.8 oz - Physical Exam Head: Positive for: Laceration (right forehead) Pupils: Positive for: PERRL Extroacular Muscles: Positive for: EOMI Conjunctiva: Positive for: Normal. Negative for: Injected, Icteric Mouth: Positive for: Moist Mucous Membranes Pharnyx: Positive for: Normal Neck: Positive for: Normal Range of Motion Respiratory/Chest: Positive for: Clear to Auscultation, Good Air Exchange. Negative for: Respiratory Distress, Accessory Muscle Use, Wheezes Cardiovascular: Positive for: Regular Rate and Rhythm, Normal S1, S2, Peripheal Pulses Present. Negative for: Irregular Rhythm, Tachycardic, Bradycardic Abdomen: Positive for: Normal Bowel Sounds. Negative for: Tenderness, Distention, Peritoneal Signs, Rebound, Guarding Upper Extremity: Positive for: Normal Inspection. Negative for: Cyanosis, Edema Lower Extremity: Positive for: Normal Inspection, NORMAL PULSES. Negative for: Edema, CALF TENDERNESS, Tenderness Neurological: Positive for: GCS=15, CN II-XII Intact, Speech Normal Skin: Positive for: Warm, Dry, Normal Color. Negative for: Rashes Psychiatric: Positive for: Alert, Oriented x 3 - Medications Active Medications: Active Medications Generic Name Dose Route Start Last Admin Trade Name Freq PRN Reason Stop Dose Admin Acetaminophen 650 mg 10/09/17 18:46 Tylenol 325mg Tab PO Q6H PRN Fever >100.4 F Albuterol/Ipratropium 3 ml 10/09/17 18:45 05/03/18 07:42 Duoneb 3 Mg/0.5 Mg (3 Ml) Ud IH 3 ml Q6H [facility] Administration Albuterol/Ipratropium 3 ml 10/09/17 18:46 Duoneb 3 Mg/0.5 Mg (3 Ml) Ud IH Q2H PRN Shortness of Breath Aripiprazole 5 mg 10/10/17 10:00 10/10/17 10:21 Abilify PO 5 mg DAILY [facility] Administration Atorvastatin Calcium 20 mg 10/10/17 10:00 10/10/17 10:23 Lipitor PO 20 mg DAILY [facility] Administration Budesonide 0.25 mg 10/09/17 20:00 10/10/17 07:42 Pulmicort Respules IH 0.25 mg [id number] [facility] Administration Buspirone HCl 7.5 mg 10/10/17 10:00 10/10/17 10:21 Buspar PO 7.5 mg DAILY [facility] Administration Protocol Cholecalciferol 1,000 intlu 10/10/17 10:00 10/10/17 10:23 Vitamin D PO 1,000 intlu DAILY [facility] Administration Heparin Sodium (Porcine) 5,000 units 10/09/17 19:00 10/10/17 10:26 Heparin SC 5,000 units Q8H [facility] Administration Protocol Hydroxyzine HCl 50 mg 10/10/17 10:00 10/10/17 10:21 Atarax PO 50 mg DAILY [facility] Administration Methylprednisolone 40 mg 10/09/17 22:00 10/10/17 10:25 Solu-Medrol IVP 40 mg Q12 [facility] Administration Mirtazapine 30 mg 10/10/17 22:00 Remeron PO HS [facility] Non-Formulary Medication 1 tab 10/10/17 10:00 10/10/17 10:23 Vitamin B Complex [Balance B-100] PO 1 tab DAILY [facility] Administration Pantoprazole Sodium 40 mg 10/10/17 10:00 10/10/17 10:24 Protonix Inj IVP 40 mg DAILY [facility] Administration Ropinirole HCl 5 mg 10/10/17 22:00 Requip PO HS [facility] - Patient Studies Lab Studies: Lab Studies 10/10/17 10/10/17 10/10/17 Range/Units 07:50 05:20 05:20 WBC 5.1 (4.5-11.0) 10^3/ul RBC 4.49 (3.5-6.1) 10^6/uL Hgb 13.0 (12.0-16.0) g/dL Hct 40.1 (36.0-48.0) % MCV 89.3 (80.0-105.0) fl MCH 29.0 (25.0-35.0) pg MCHC 32.4 (31.0-37.0) g/dl RDW 14.3 (11.5-14.5) % Plt Count 213 (120.0-450.0) 10^3/uL MPV 10.4 (7.0-11.0) fl Gran % 85.2 H (50.0-68.0) % Lymph % (Auto) 13.0 L (22.0-35.0) % [place] % (Auto) 1.4 (1.0-6.0) % Eos % (Auto) 0.4 L (1.5-5.0) % Baso % (Auto) 0.0 (0.0-3.0) % Gran # 4.38 (1.4-6.5) Lymph # (Auto) 0.7 L (1.2-3.4) [place] # (Auto) 0.1 (0.1-0.6) Eos # (Auto) 0.0 (0.0-0.7) Baso # (Auto) 0.00 (0.0-2.0) K/mm3 pCO2 (35-45) mm/Hg pO2 (80-100) mm/Hg HCO3 (21-28) mmol/L ABG pH (7.35-7.45) ABG Total CO2 (22-28) mmol.L ABG O2 Saturation (95-98) % ABG Base Excess (-2.0-3.0) mmol/L ABG Potassium (3.6-5.2) mmol/L Sodium 138 (132-148) mmol/L Chloride 108 H (98-107) mmol/L Glucose (65-105) mg/dl Lactate (0.7-2.1) mmol/L FiO2 % Potassium 4.4 (3.6-5.0) mmol/L Carbon Dioxide 21 (21-33) mmol/L Anion Gap 13 (10-20) BUN 12 (7-21) mg/dL Creatinine 0.6 L (0.7-1.2) mg/dl Est GFR ( Amer) > 60 Est GFR (Non-Af Amer) > 60 POC Glucose (mg/dL) 99 (65-110) mg/dL Random Glucose 113 H (70-110) mg/dL Calcium 8.8 (8.4-10.5) mg/dL Total Bilirubin 0.4 (0.2-1.3) mg/dL AST 22 (14-36) U/L ALT 27 (7-56) U/L Alkaline Phosphatase 65 (38-126) U/L Total Protein 6.2 (5.8-8.3) g/dL Albumin 3.8 (3.0-4.8) g/dL Globulin 2.5 gm/dL Albumin/Globulin Ratio 1.5 (1.1-1.8) Arterial Blood Potassium (3.6-5.2) mmol/L Urine Opiates Screen (NEGATIVE) Urine Methadone Screen (NEGATIVE) Ur Barbiturates Screen (NEGATIVE) Ur Phencyclidine Scrn (NEGATIVE) Ur Amphetamines Screen (NEGATIVE) U Benzodiazepines Scrn (NEGATIVE) U Oth Cocaine Metabols (NEGATIVE) U Cannabinoids Screen (NEGATIVE) 10/09/17 10/09/17 Range/Units 20:06 19:30 WBC (4.5-11.0) 10^3/ul RBC (3.5-6.1) 10^6/uL Hgb (12.0-16.0) g/dL Hct (36.0-48.0) % MCV (80.0-105.0) fl MCH (25.0-35.0) pg MCHC (31.0-37.0) g/dl RDW (11.5-14.5) % Plt Count (120.0-450.0) 10^3/uL MPV (7.0-11.0) fl Gran % (50.0-68.0) % Lymph % (Auto) (22.0-35.0) % [place] % (Auto) (1.0-6.0) % Eos % (Auto) (1.5-5.0) % Baso % (Auto) (0.0-3.0) % Gran # (1.4-6.5) Lymph # (Auto) (1.2-3.4) [place] # (Auto) (0.1-0.6) Eos # (Auto) (0.0-0.7) Baso # (Auto) (0.0-2.0) K/mm3 pCO2 41 (35-45) mm/Hg pO2 72.0 L (80-100) mm/Hg HCO3 23.2 (21-28) mmol/L ABG pH 7.36 (7.35-7.45) ABG Total CO2 24.5 (22-28) mmol.L ABG O2 Saturation 96.6 (95-98) % ABG Base Excess -2.2 L (-2.0-3.0) mmol/L ABG Potassium 3.7 (3.6-5.2) mmol/L Sodium 139.0 (132-148) mmol/L Chloride 112.0 H (98-107) mmol/L Glucose 88 (65-105) mg/dl Lactate 0.4 L (0.7-2.1) mmol/L FiO2 21.0 % Potassium (3.6-5.0) mmol/L Carbon Dioxide (21-33) mmol/L Anion Gap (10-20) BUN (7-21) mg/dL Creatinine (0.7-1.2) mg/dl Est GFR ( Amer) Est GFR (Non-Af Amer) POC Glucose (mg/dL) (65-110) mg/dL Random Glucose (70-110) mg/dL Calcium (8.4-10.5) mg/dL Total Bilirubin (0.2-1.3) mg/dL AST (14-36) U/L ALT (7-56) U/L Alkaline Phosphatase (38-126) U/L Total Protein (5.8-8.3) g/dL Albumin (3.0-4.8) g/dL Globulin gm/dL Albumin/Globulin Ratio (1.1-1.8) Arterial Blood Potassium 3.7 (3.6-5.2) mmol/L Urine Opiates Screen Positive H (NEGATIVE) Urine Methadone Screen Negative (NEGATIVE) Ur Barbiturates Screen Negative (NEGATIVE) Ur Phencyclidine Scrn Negative (NEGATIVE) Ur Amphetamines Screen Negative (NEGATIVE) U Benzodiazepines Scrn Positive (NEGATIVE) U Oth Cocaine Metabols Negative (NEGATIVE) U Cannabinoids Screen Negative (NEGATIVE) Laboratory Results - last 24 hr 10/09/17 10/09/17 10/10/17 19:30 20:06 05:20 WBC 5.1 RBC 4.49 Hgb 13.0 Hct 40.1 MCV 89.3 MCH 29.0 MCHC 32.4 RDW 14.3 Plt Count 213 MPV 10.4 Gran % 85.2 H Lymph % (Auto) 13.0 L [place] % (Auto) 1.4 Eos % (Auto) 0.4 L Baso % (Auto) 0.0 Gran # 4.38 Lymph # (Auto) 0.7 L [place] # (Auto) 0.1 Eos # (Auto) 0.0 Baso # (Auto) 0.00 pCO2 41 pO2 72.0 L HCO3 23.2 ABG pH 7.36 ABG Total CO2 24.5 ABG O2 Saturation 96.6 ABG Base Excess -2.2 L ABG Potassium 3.7 Sodium 139.0 Chloride 112.0 H Glucose 88 Lactate 0.4 L FiO2 21.0 Potassium Carbon Dioxide Anion Gap BUN Creatinine Est GFR ( Amer) Est GFR (Non-Af Amer) POC Glucose (mg/dL) Random Glucose Calcium Total Bilirubin AST ALT Alkaline Phosphatase Total Protein Albumin Globulin Albumin/Globulin Ratio Arterial Blood Potassium 3.7 Urine Opiates Screen Positive H Urine Methadone Screen Negative Ur Barbiturates Screen Negative Ur Phencyclidine Scrn Negative Ur Amphetamines Screen Negative U Benzodiazepines Scrn Positive U Oth Cocaine Metabols Negative U Cannabinoids Screen Negative 10/10/17 10/10/17 05:20 07:50 WBC RBC Hgb Hct MCV MCH MCHC RDW Plt Count MPV Gran % Lymph % (Auto) [place] % (Auto) Eos % (Auto) Baso % (Auto) Gran # Lymph # (Auto) [place] # (Auto) Eos # (Auto) Baso # (Auto) pCO2 pO2 HCO3 ABG pH ABG Total CO2 ABG O2 Saturation ABG Base Excess ABG Potassium Sodium 138 Chloride 108 H Glucose Lactate FiO2 Potassium 4.4 Carbon Dioxide 21 Anion Gap 13 BUN 12 Creatinine 0.6 L Est GFR ( Amer) > 60 Est GFR (Non-Af Amer) > 60 POC Glucose (mg/dL) 99 Random Glucose 113 H Calcium 8.8 Total Bilirubin 0.4 AST 22 ALT 27 Alkaline Phosphatase 65 Total Protein 6.2 Albumin 3.8 Globulin 2.5 Albumin/Globulin Ratio 1.5 Arterial Blood Potassium Urine Opiates Screen Urine Methadone Screen Ur Barbiturates Screen Ur Phencyclidine Scrn Ur Amphetamines Screen U Benzodiazepines Scrn U Oth Cocaine Metabols U Cannabinoids Screen Fingerstick Blood Sugar Results: 123 Review of Systems - Review of Systems All systems: reviewed and no additional remarkable complaints except Review of Systems: as per subjective portion of note Critical Care Progress Note - Nutrition Nutrition: Nutrition Category Date Time Status Heart Healthy Diet [DIET] Diets 10/10/17 Breakfast Ordered Assessment/Plan - Assessment and Plan (Free Text) Assessment: This is a 61yo female with past medical history of substance abuse (Heroin), COPD, depression, and dyslipidemia, presented s/p heroin overdose, admitted to ICU for airway protection and hemodynamic monitoring: exacerbation. Neuro: A&O x 4 UDS positive for opiates and benzodiazepines Observe for opioid withdrawal Cardio: Echo EF 10/2016 73.3%. Mild MR/TR. RVSP 25 mmHg Continue home dose of Lipitor for hx of dyslipidemia Pulm: COPD exacerbation Duoneb prn and louise Pulmicort Solumedrol 40q12 CXR showed no evidence of aspiration or infiltrate ABG showed mild hypoxia, but pH and CO2 normal Aspiration precaution Maintain spO2>90% GI: Heart healthy diet Protonix daily Continue home med: Vitamin B and Vit D Heme: Hgb stable- no overt signs of bleeding Nephro: Cr normal Will monitor electrolytes and replace as needed ID: No sign of infection at this time Afebrile, no leukocytosis CXR was negative for aspiration Monitor Endo: Remote hx of DM in previous notes Last A1c was 5.4 in 2017 and not on DM meds at home Will continue to monitor and maintain euglycemia Psych: Hx of depression Continue home meds: Buspar, Remeron, Abilify, Atarax, Requip GI ppx: Protonix DVT ppx: Heparin SC Dispo: Transferred to Tele. Primary team aware. Case seen, discussed and reviewed with Dr Espinoza. Mirian Roman, PGY1. - Date & Time Date: 10/10/17 Time: 11:14 <Colt Espinoza - Last Filed: 10/10/17 14:20> CCU Objective - Vital Signs / Intake & Output Vital Signs (Last 4 hours): Vital Signs Temp Pulse 10/10/17 13:56 66 10/10/17 13:53 98.7 F Intake and Output (Last 8hrs): Intake & Output 10/09/17 10/10/17 10/10/17 22:59 06:59 14:59 Weight 152 lb 144 lb 12.8 oz - Medications Active Medications: Active Medications Generic Name Dose Route Start Last Admin Trade Name Freq PRN Reason Stop Dose Admin Acetaminophen 650 mg 10/09/17 18:46 Tylenol 325mg Tab PO Q6H PRN Fever >100.4 F Albuterol/Ipratropium 3 ml 10/09/17 18:45 10/10/17 13:05 Duoneb 3 Mg/0.5 Mg (3 Ml) Ud IH 3 ml Q6H [facility] Administration Albuterol/Ipratropium 3 ml 10/09/17 18:46 Duoneb 3 Mg/0.5 Mg (3 Ml) Ud IH Q2H PRN Shortness of Breath Aripiprazole 5 mg 10/10/17 10:00 10/10/17 10:21 Abilify PO 5 mg DAILY [facility] Administration Atorvastatin Calcium 20 mg 10/10/17 10:00 10/10/17 10:23 Lipitor PO 20 mg DAILY [facility] Administration Budesonide 0.25 mg 10/09/17 20:00 10/10/17 07:42 Pulmicort Respules IH 0.25 mg [id number] [facility] Administration Buspirone HCl 7.5 mg 10/10/17 10:00 10/10/17 10:21 Buspar PO 7.5 mg DAILY [facility] Administration Protocol Cholecalciferol 1,000 intlu 10/10/17 10:00 10/10/17 10:23 Vitamin D PO 1,000 intlu DAILY [facility] Administration Heparin Sodium (Porcine) 5,000 units 10/09/17 19:00 10/10/17 10:26 Heparin SC 5,000 units Q8H [facility] Administration Protocol Hydroxyzine HCl 50 mg 10/10/17 10:00 10/10/17 10:21 Atarax PO 50 mg DAILY [facility] Administration Methylprednisolone 40 mg 10/09/17 22:00 10/10/17 10:25 Solu-Medrol IVP 40 mg Q12 [facility] Administration Mirtazapine 30 mg 10/10/17 22:00 Remeron PO HS [facility] Non-Formulary Medication 1 tab 10/10/17 10:00 10/10/17 10:23 Vitamin B Complex [Balance B-100] PO 1 tab DAILY [facility] Administration Pantoprazole Sodium 40 mg 10/11/17 07:30 Protonix Ec Tab PO ACB [facility] Ropinirole HCl 5 mg 10/10/17 22:00 Requip PO HS [facility] - Patient Studies Lab Studies: Lab Studies 10/10/17 10/10/17 10/10/17 Range/Units 11:09 07:50 05:20 WBC (4.5-11.0) 10^3/ul RBC (3.5-6.1) 10^6/uL Hgb (12.0-16.0) g/dL Hct (36.0-48.0) % MCV (80.0-105.0) fl MCH (25.0-35.0) pg MCHC (31.0-37.0) g/dl RDW (11.5-14.5) % Plt Count (120.0-450.0) 10^3/uL MPV (7.0-11.0) fl Gran % (50.0-68.0) % Lymph % (Auto) (22.0-35.0) % [place] % (Auto) (1.0-6.0) % Eos % (Auto) (1.5-5.0) % Baso % (Auto) (0.0-3.0) % Gran # (1.4-6.5) Lymph # (Auto) (1.2-3.4) [place] # (Auto) (0.1-0.6) Eos # (Auto) (0.0-0.7) Baso # (Auto) (0.0-2.0) K/mm3 pCO2 (35-45) mm/Hg pO2 (80-100) mm/Hg HCO3 (21-28) mmol/L ABG pH (7.35-7.45) ABG Total CO2 (22-28) mmol.L ABG O2 Saturation (95-98) % ABG Base Excess (-2.0-3.0) mmol/L ABG Potassium (3.6-5.2) mmol/L Sodium 138 (132-148) mmol/L Chloride 108 H (98-107) mmol/L Glucose (65-105) mg/dl Lactate (0.7-2.1) mmol/L FiO2 % Potassium 4.4 (3.6-5.0) mmol/L Carbon Dioxide 21 (21-33) mmol/L Anion Gap 13 (10-20) BUN 12 (7-21) mg/dL Creatinine 0.6 L (0.7-1.2) mg/dl Est GFR ( Amer) > 60 Est GFR (Non-Af Amer) > 60 POC Glucose (mg/dL) 108 99 (65-110) mg/dL Random Glucose 113 H (70-110) mg/dL Calcium 8.8 (8.4-10.5) mg/dL Total Bilirubin 0.4 (0.2-1.3) mg/dL AST 22 (14-36) U/L ALT 27 (7-56) U/L Alkaline Phosphatase 65 (38-126) U/L Total Protein 6.2 (5.8-8.3) g/dL Albumin 3.8 (3.0-4.8) g/dL Globulin 2.5 gm/dL Albumin/Globulin Ratio 1.5 (1.1-1.8) Arterial Blood Potassium (3.6-5.2) mmol/L Urine Opiates Screen (NEGATIVE) Urine Methadone Screen (NEGATIVE) Ur Barbiturates Screen (NEGATIVE) Ur Phencyclidine Scrn (NEGATIVE) Ur Amphetamines Screen (NEGATIVE) U Benzodiazepines Scrn (NEGATIVE) U Oth Cocaine Metabols (NEGATIVE) U Cannabinoids Screen (NEGATIVE) 10/10/17 10/09/17 10/09/17 Range/Units 05:20 20:06 19:30 WBC 5.1 (4.5-11.0) 10^3/ul RBC 4.49 (3.5-6.1) 10^6/uL Hgb 13.0 (12.0-16.0) g/dL Hct 40.1 (36.0-48.0) % MCV 89.3 (80.0-105.0) fl MCH 29.0 (25.0-35.0) pg MCHC 32.4 (31.0-37.0) g/dl RDW 14.3 (11.5-14.5) % Plt Count 213 (120.0-450.0) 10^3/uL MPV 10.4 (7.0-11.0) fl Gran % 85.2 H (50.0-68.0) % Lymph % (Auto) 13.0 L (22.0-35.0) % [place] % (Auto) 1.4 (1.0-6.0) % Eos % (Auto) 0.4 L (1.5-5.0) % Baso % (Auto) 0.0 (0.0-3.0) % Gran # 4.38 (1.4-6.5) Lymph # (Auto) 0.7 L (1.2-3.4) [place] # (Auto) 0.1 (0.1-0.6) Eos # (Auto) 0.0 (0.0-0.7) Baso # (Auto) 0.00 (0.0-2.0) K/mm3 pCO2 41 (35-45) mm/Hg pO2 72.0 L (80-100) mm/Hg HCO3 23.2 (21-28) mmol/L ABG pH 7.36 (7.35-7.45) ABG Total CO2 24.5 (22-28) mmol.L ABG O2 Saturation 96.6 (95-98) % ABG Base Excess -2.2 L (-2.0-3.0) mmol/L ABG Potassium 3.7 (3.6-5.2) mmol/L Sodium 139.0 (132-148) mmol/L Chloride 112.0 H (98-107) mmol/L Glucose 88 (65-105) mg/dl Lactate 0.4 L (0.7-2.1) mmol/L FiO2 21.0 % Potassium (3.6-5.0) mmol/L Carbon Dioxide (21-33) mmol/L Anion Gap (10-20) BUN (7-21) mg/dL Creatinine (0.7-1.2) mg/dl Est GFR ( Amer) Est GFR (Non-Af Amer) POC Glucose (mg/dL) (65-110) mg/dL Random Glucose (70-110) mg/dL Calcium (8.4-10.5) mg/dL Total Bilirubin (0.2-1.3) mg/dL AST (14-36) U/L ALT (7-56) U/L Alkaline Phosphatase (38-126) U/L Total Protein (5.8-8.3) g/dL Albumin (3.0-4.8) g/dL Globulin gm/dL Albumin/Globulin Ratio (1.1-1.8) Arterial Blood Potassium 3.7 (3.6-5.2) mmol/L Urine Opiates Screen Positive H (NEGATIVE) Urine Methadone Screen Negative (NEGATIVE) Ur Barbiturates Screen Negative (NEGATIVE) Ur Phencyclidine Scrn Negative (NEGATIVE) Ur Amphetamines Screen Negative (NEGATIVE) U Benzodiazepines Scrn Positive (NEGATIVE) U Oth Cocaine Metabols Negative (NEGATIVE) U Cannabinoids Screen Negative (NEGATIVE) Laboratory Results - last 24 hr 10/09/17 10/09/17 10/10/17 19:30 20:06 05:20 WBC 5.1 RBC 4.49 Hgb 13.0 Hct 40.1 MCV 89.3 MCH 29.0 MCHC 32.4 RDW 14.3 Plt Count 213 MPV 10.4 Gran % 85.2 H Lymph % (Auto) 13.0 L [place] % (Auto) 1.4 Eos % (Auto) 0.4 L Baso % (Auto) 0.0 Gran # 4.38 Lymph # (Auto) 0.7 L [place] # (Auto) 0.1 Eos # (Auto) 0.0 Baso # (Auto) 0.00 pCO2 41 pO2 72.0 L HCO3 23.2 ABG pH 7.36 ABG Total CO2 24.5 ABG O2 Saturation 96.6 ABG Base Excess -2.2 L ABG Potassium 3.7 Sodium 139.0 Chloride 112.0 H Glucose 88 Lactate 0.4 L FiO2 21.0 Potassium Carbon Dioxide Anion Gap BUN Creatinine Est GFR ( Amer) Est GFR (Non-Af Amer) POC Glucose (mg/dL) Random Glucose Calcium Total Bilirubin AST ALT Alkaline Phosphatase Total Protein Albumin Globulin Albumin/Globulin Ratio Arterial Blood Potassium 3.7 Urine Opiates Screen Positive H Urine Methadone Screen Negative Ur Barbiturates Screen Negative Ur Phencyclidine Scrn Negative Ur Amphetamines Screen Negative U Benzodiazepines Scrn Positive U Oth Cocaine Metabols Negative U Cannabinoids Screen Negative 10/10/17 10/10/17 10/10/17 05:20 07:50 11:09 WBC RBC Hgb Hct MCV MCH MCHC RDW Plt Count MPV Gran % Lymph % (Auto) [place] % (Auto) Eos % (Auto) Baso % (Auto) Gran # Lymph # (Auto) [place] # (Auto) Eos # (Auto) Baso # (Auto) pCO2 pO2 HCO3 ABG pH ABG Total CO2 ABG O2 Saturation ABG Base Excess ABG Potassium Sodium 138 Chloride 108 H Glucose Lactate FiO2 Potassium 4.4 Carbon Dioxide 21 Anion Gap 13 BUN 12 Creatinine 0.6 L Est GFR ( Amer) > 60 Est GFR (Non-Af Amer) > 60 POC Glucose (mg/dL) 99 108 Random Glucose 113 H Calcium 8.8 Total Bilirubin 0.4 AST 22 ALT 27 Alkaline Phosphatase 65 Total Protein 6.2 Albumin 3.8 Globulin 2.5 Albumin/Globulin Ratio 1.5 Arterial Blood Potassium Urine Opiates Screen Urine Methadone Screen Ur Barbiturates Screen Ur Phencyclidine Scrn Ur Amphetamines Screen U Benzodiazepines Scrn U Oth Cocaine Metabols U Cannabinoids Screen Critical Care Progress Note - Nutrition Nutrition: Nutrition Category Date Time Status Heart Healthy Diet [DIET] Diets 10/10/17 Breakfast Ordered Attending/Attestation - Attestation I have personally seen and examined this patient.: Yes I have fully participated in the care of the patient.: Yes I have reviewed all pertinent clinical information: Yes Notes (Text): 10/10/17 14:17 61 yo female with opiate overdose, requring narcan drip, now alert awake, protecting her airways, low normotensive. tolerates oral hydration and nutrition , oob to chair. psych eval for opiate addiction management ccm time 40 min
--- NOTE | 2017-10-10 20:24 | CARD ---
APPROVED REPORT EXAM: Two-dimensional and M-mode echocardiogram with Doppler and color Doppler. INDICATION Congestive Heart Failure 2D DIMENSIONS Left Atrium (2D)3.9 (1.6-4.0cm)IVSd1.2 (0.7-1.1cm) LVDd4.6 (3.9-5.9cm)PWd1.2 (0.7-1.1cm) LVDs3.0 (2.5-4.0cm)FS (%) 34.5 % LVEF (%)63.8 (>50%) M-Mode DIMENSIONS Aortic Root2.90 (2.2-3.7cm)Aortic Cusp Exc.1.70 (1.5-2.0cm) Aortic Valve AoV Peak Xasejqfc018.0cm/sAoV VTI44.1cmAO Peak GR.16mmHg LVOT Peak Xtluboxk753.0cm/sLVOT VTI29.00cmAO Mean GR.9mmHg Mitral Valve MV E Wfbuuzuf45.5cm/sMV A Jvpmosto12.9cm/sE/A ratio0.9 TDI Lateral E' Peak V11.50cm/sMedial E' Peak V9.94cm/sE/Lateral E'6.7 E/Medial E'7.8 Pulmonary Valve PV Peak Jxyujnsi65.8cm/sPV Peak Grad.3mmHg Tricuspid Valve TR Peak Xmuswvzh248rb/sRAP [id number] Peak Gr.22mmHg [id number] LEFT VENTRICLE The left ventricle is normal size. There is borderline concentric left ventricular hypertrophy. The left ventricular function is normal. The left ventricular ejection fraction is within the normal range. There is normal LV segmental wall motion. Transmitral Doppler flow pattern is Grade I-abnormal relaxation pattern. RIGHT VENTRICLE The right ventricle is normal size. There is normal right ventricular wall thickness. The right ventricular systolic function is normal. ATRIA The left atrium size is normal. The right atrium size is normal. AORTIC VALVE The aortic valve is mildly thickened. There is trace aortic regurgitation. There is no aortic valvular stenosis. MITRAL VALVE The mitral valve is normal in structure. Mitral regurgitation is mild. TRICUSPID VALVE The tricuspid valve is normal in structure. There is mild tricuspid regurgitation. GREAT VESSELS The aortic root is normal in size. The IVC is normal in size and collapses >50% with inspiration. PERICARDIAL EFFUSION There is no pericardial effusion. <Conclusion> The left ventricle is normal size. There is borderline concentric left ventricular hypertrophy. The left ventricular function is normal. The left ventricular ejection fraction is within the normal range. There is normal LV segmental wall motion. Transmitral Doppler flow pattern is Grade I-abnormal relaxation pattern. Mitral regurgitation is mild. There is mild tricuspid regurgitation.
[2017-10-11] MEDS: Albuterol-Ipratrop 3 mg / 0.5 (3 ml) UD IH SCH ×3 (02:41→13:20)
[2017-10-11 06:01] LABS: GRAN # 5.86 (1.4-6.5); GRAN % 87.1 % (50.0-68.0); LYMPH # 0.7 (1.2-3.4); LYMPH % 10.7 % (22.0-35.0); MEAN CELL VOLUME 88.4 fl (80.0-105.0); MEAN CORPUSCULAR HEMOGLOBIN 29.1 pg (25.0-35.0); MEAN CORPUSCULAR HGB CONC 32.9 g/dl (31.0-37.0); MONO # 0.2 (0.1-0.6); MONO % 2.2 % (1.0-6.0); RBC 4.47 10^6/uL (3.5-6.1); RED CELL DISTRIBUTION WIDTH 13.8 % (11.5-14.5); WHITE BLOOD COUNT 6.7 10^3/ul (4.5-11.0)
[2017-10-11 06:28] VITALS: RESP 18
[2017-10-11] MEDS: Budesonide 0.25 mg/2 ml Inhal Susp UD IH SCH (07:12)
[2017-10-11] MEDS ORDERED: Pantoprazole 40 mg EC Tab PO SCH (07:30)
[2017-10-11 07:41] LABS: ALB/GLOB RATIO 1.5 (1.1-1.8); ALT/SGPT 25 U/L (7-56); AST/SGOT 16 U/L (14-36); BLOOD UREA NITROGEN 12 mg/dL (7-21); CALCIUM 9.3 mg/dL (8.4-10.5); GFR AFRICAN-AMERICAN > 60; GFR NON-AFRICAN AMERICAN > 60
[2017-10-11] MEDS: Cholecalciferol 1,000 INTLU TAB PO SCH (09:01)
[2017-10-11] MEDS: MethylPREDNISolone 40 mg Vial IVP SCH (09:02)
[2017-10-11] MEDS: Non Formulary Medication (Vitamin B Complex [Balance B-100] 1 TAB) PO SCH (09:50)
--- NOTE | 2017-10-11 14:51 | CP.PCM.DIS ---
Provider - Provider Date of Admission: 10/09/17 18:27 Attending physician: Jn Lopez MD Primary care physician: Jennifer Carrizales MD Consults: Psych: Dr. Gautam Time Spent in preparation of Discharge (in minutes): 35 Diagnosis - Discharge Diagnosis (1) Narcotic-induced respiratory depression Status: Acute (2) COPD exacerbation Status: Acute Hospital Course - Lab Results Lab Results: Micro Results 10/09/17 23:12 Nose MRSA Culture (Admit) - Final MRSA NOT DETECTED Most Recent Lab Values WBC 6.7 10^3/ul (4.5-11.0) D 10/11/17 05:20 RBC 4.47 10^6/uL (3.5-6.1) 10/11/17 05:20 Hgb 13.0 g/dL (12.0-16.0) 10/11/17 05:20 Hct 39.5 % (36.0-48.0) 10/11/17 05:20 MCV 88.4 fl (80.0-105.0) 10/11/17 05:20 MCH 29.1 pg (25.0-35.0) 10/11/17 05:20 MCHC 32.9 g/dl (31.0-37.0) 10/11/17 05:20 RDW 13.8 % (11.5-14.5) 10/11/17 05:20 Plt Count 230 10^3/uL (120.0-450.0) 10/11/17 05:20 MPV 10.0 fl (7.0-11.0) 10/11/17 05:20 Gran % 87.1 % (50.0-68.0) H 10/11/17 05:20 Lymph % (Auto) 10.7 % (22.0-35.0) L 10/11/17 05:20 Bell % (Auto) 2.2 % (1.0-6.0) 10/11/17 05:20 Eos % (Auto) 0.0 % (1.5-5.0) L 10/11/17 05:20 Baso % (Auto) 0.0 % (0.0-3.0) 10/11/17 05:20 Gran # 5.86 (1.4-6.5) 10/11/17 05:20 Lymph # (Auto) 0.7 (1.2-3.4) L 10/11/17 05:20 [place] # (Auto) 0.2 (0.1-0.6) 10/11/17 05:20 Eos # (Auto) 0.0 (0.0-0.7) 10/11/17 05:20 Baso # (Auto) 0.00 K/mm3 (0.0-2.0) 10/11/17 05:20 pCO2 41 mm/Hg (35-45) 10/09/17 19:30 pO2 72.0 mm/Hg (80-100) L 10/09/17 19:30 HCO3 23.2 mmol/L (21-28) 10/09/17 19:30 ABG pH 7.36 (7.35-7.45) 10/09/17 19:30 ABG Total CO2 24.5 mmol.L (22-28) 10/09/17 19:30 ABG O2 Saturation 96.6 % (95-98) 10/09/17 19:30 ABG Base Excess -2.2 mmol/L (-2.0-3.0) L 10/09/17 19:30 ABG Potassium 3.7 mmol/L (3.6-5.2) 10/09/17 19:30 Sodium 139.0 mmol/L (132-148) 10/09/17 19:30 Chloride 112.0 mmol/L (98-107) H 10/09/17 19:30 Glucose 88 mg/dl (65-105) 10/09/17 19:30 Lactate 0.4 mmol/L (0.7-2.1) L 10/09/17 19:30 FiO2 21.0 % 10/09/17 19:30 Sodium 138 mmol/L (132-148) 10/11/17 05:20 Potassium 4.5 mmol/L (3.6-5.0) 10/11/17 05:20 Chloride 106 mmol/L (98-107) 10/11/17 05:20 Carbon Dioxide 23 mmol/L (21-33) 10/11/17 05:20 Anion Gap 14 (10-20) 10/11/17 05:20 BUN 12 mg/dL (7-21) 10/11/17 05:20 Creatinine 0.5 mg/dl (0.7-1.2) L 10/11/17 05:20 Est GFR ( Amer) > 60 10/11/17 05:20 Est GFR (Non-Af Amer) > 60 10/11/17 05:20 POC Glucose (mg/dL) 132 mg/dL (65-110) H 10/11/17 11:02 Random Glucose 142 mg/dL (70-110) H 10/11/17 05:20 Calcium 9.3 mg/dL (8.4-10.5) 10/11/17 05:20 Total Bilirubin 0.2 mg/dL (0.2-1.3) 10/11/17 05:20 AST 16 U/L (14-36) 10/11/17 05:20 ALT 25 U/L (7-56) 10/11/17 05:20 Alkaline Phosphatase 68 U/L (38-126) 10/11/17 05:20 Total Protein 6.7 g/dL (5.8-8.3) 10/11/17 05:20 Albumin 4.0 g/dL (3.0-4.8) 10/11/17 05:20 Globulin 2.7 gm/dL 10/11/17 05:20 Albumin/Globulin Ratio 1.5 (1.1-1.8) 10/11/17 05:20 Arterial Blood Potassium 3.7 mmol/L (3.6-5.2) 10/09/17 19:30 Salicylates < 1 mg/dL (2.0-20.0) L 10/09/17 14:30 Urine Opiates Screen Positive (NEGATIVE) H 10/09/17 20:06 Urine Methadone Screen Negative (NEGATIVE) 10/09/17 20:06 Acetaminophen < 10.0 ug/ml (10.0-20.0) L 10/09/17 14:30 Ur Barbiturates Screen Negative (NEGATIVE) 10/09/17 20:06 Ur Phencyclidine Scrn Negative (NEGATIVE) 10/09/17 20:06 Ur Amphetamines Screen Negative (NEGATIVE) 10/09/17 20:06 U Benzodiazepines Scrn Positive (NEGATIVE) 10/09/17 20:06 U Oth Cocaine Metabols Negative (NEGATIVE) 10/09/17 20:06 U Cannabinoids Screen Negative (NEGATIVE) 10/09/17 20:06 Alcohol, Quantitative < 10 mg/dL (0-10) 10/09/17 14:30 - Hospital Course Hospital Course: 61yo female with past medical history of substance abuse (Heroin), COPD, depression, and dyslipidemia who was brought into ED by EMS. She was found in the street with abrasions on her face. Patient was seen in ED and was very lethargic. Head CT was preformed in ED and found to be negative for acute intracranial pathology. Patient Narcan administered to patient with minimal relief. Patient was placed on narcan drip and transferred to ICU for further monitoring and management. Patient was transferred to telemetry for heroin withdrawal symptoms. Psychiatry was consulted and evaluated the patient. On day 2 of her admission patient was evaluated and deemed appropriate for discharge with outpatient follow up. - Date & Time of H&P Date of H&P: 10/09/17 Time of H&P: 14:37 Discharge Exam - Head Exam Head Exam: ATRAUMATIC, NORMAL INSPECTION, NORMOCEPHALIC - Eye Exam Eye Exam: EOMI, PERRL - Neck Exam Neck exam: Full Rom - Respiratory Exam Respiratory Exam: Rhonchi, Wheezes, NORMAL BREATHING PATTERN. absent: Rales - Cardiovascular Exam Cardiovascular Exam: REGULAR RHYTHM, +S1, +S2 - GI/Abdominal Exam GI & Abdominal Exam: Normal Bowel Sounds, Soft. absent: Tenderness - Extremities Exam Extremities exam: pedal pulses present - Neurological Exam Neurological exam: Alert, Normal Gait, Oriented x3 - Psychiatric Exam Psychiatric exam: Normal Affect, Normal Mood - Skin Skin Exam: Dry, Warm Discharge Plan - Discharge Medications Prescriptions: Albuterol Sulfate [Ventolin Hfa] 1 puff IH Q4H PRN #1 inh PRN Reason: Shortness Of Breath Prednisone [Deltasone] 40 mg PO DAILY 5 Days tablet - Follow Up Plan Condition: CRITICAL Disposition: HOME/ ROUTINE Instructions: Quitting Smoking for Older Adults, Smoking: Not Just Harmful to Your Lungs and Heart, Dangers of Secondhand Smoke, Exacerbation of COPD, Preventing Falls, Narcotic Overdose (DC) Additional Instructions: Follow up with [facility] Follow up with Primary care physician Take medications as prescribed to you Cease heroin use Referrals: Jennifer Carrizales MD [Primary Care Provider] -
[2017-10-11 15:48] VITALS: BP 119/79; PULSE 82; TEMP 98.9; O2SAT 98
--- NOTE | 2017-10-12 03:57 | CON ---
DATE: HISTORY OF PRESENT ILLNESS: Patient is 61-year-old female, history of opioid abuse and dependence. Patient was admitted to ICU status post use of heroin. Patient was found outside having fallen. Patient also was found to have respiratory distress and hypoxia. Patient was admitted to ICU. Psych consult was called for evaluation of altered mental status and possible history of depression. Patient was seen and examined. Collaterals were obtained from the medical site. Had prolonged conversation with Dr. Lopez. As per medical team, patient never verbalized thoughts of harming herself; never said that she wanted to kill herself prior to coming to the hospital. Patient was not psychotic either. Patient also is not aggressive for agitated. Collaterals also obtained from the nursing staff. As per nursing report, patient is very pleasant, compliant with the treatment. No signs of depression or suicidal ideations. No psychosis. Patient was seen and examined today. Patient was alert and oriented, pleasant, cooperative. Patient reported that she was not using drugs for past 4 months and she relapsed on heroin and she used 5 bags at the same time. Patient was in the emergency room less than 2 months ago, status post overdose on opioids back then. Patient reported that she was not depressed. Denied intentional overdose on drugs. Patient reported that she changed the grier and that is why she feels those were too strong for her. Patient said that she snorted that. Denied IV drug use. Patient reported that she has history of depression and her primary care physician, , prescribing her psychotropic medications. Patient reported that she fills her medication in [facility] here in [place]. This designer writer contacted pharmacy, . Patient was on trazodone 50 mg at the nighttime, prescribed by , filled on 10/12; Remeron 30 mg at the nighttime, filled on 10/12, 30-day supply was given to her. Patient also is on hydroxyzine 50 mg daily; the same prescriber at the same date. Patient is also on Abilify 5 mg daily, the same prescriber; as well as BuSpar 7.5 mg, the same prescriber and date of filling. Patient reported being compliant with medications. Denied any side effects. At the same time, this designer writer offered to discontinue trazodone because there is no need for the patient to be on two antidepressants at the same time. Remeron could be increased to 45 mg and it could affect the patient's depressive symptoms as well as insomnia. Patient was in agreement with that plan. This designer writer reviewed vital signs. Vital signs seems to be stable. Temperature 98.9, blood pressure 119/79, respirations 18, oxygen saturation is 98. Medications reviewed; Requip, Protonix, vitamin B, Remeron, Solu-Medrol, Vistaril, heparin, vitamin D, BuSpar, Pulmicort, Abilify, DuoNeb, and Tylenol. Labs reviewed, seems to be within normal limits. Toxicology showed positive for opioids and benzodiazepines. MENTAL STATUS EXAM: Patient presented to be alert and oriented, pleasant, cooperative. No signs of agitation or aggression. Good eye contact. Mood described, "messed up." Affect was reactive. Mood congruent. Thought process seems to be coherent and goal directed. Thought content, patient denied visual, auditory, or tactile hallucinations. Denied paranoid ideation. Patient does not present to be psychotic. Insight and judgment seems to be improving. Impulses are well controlled. IMPRESSION: Status post unintentional overdose on opioids and rule out substance-induced mood disorder, rule out depression, opioid addiction. PLAN This designer writer confirmed medication. Patient would benefit from adjustment of the medications. BuSpar could be discontinued. Remeron could be increased to 30 mg at the nighttime. Trazodone could be discontinued. Patient has [facility] appointment at [facility]. Patient wants to go to therapy for her addiction. Besides that, there is no psychosis, no agitation or aggression. Patient adamantly denied thoughts of harming herself or others. Patient deemed to be not in any imminent danger to self or others. We will follow up with this patient on the medical site in order to adjust medication. This designer writer will suggest the maximum dose of Remeron and discontinue trazodone. Case was discussed with Dr. Lopez. Thank you very much for letting me participate in the care of your patient. Soo Gautam MD
--- NOTE | 2017-10-14 11:40 | CP.PCM.PCO ---
Physician Communication Note - Physician Communication Note Physician Communication Note: pt was d/c
== END 2017-10-11 16:27 | disposition home or self-care (01) | DRG 449 ==
LOC: ED 13:48 → ERH 18:27 → ICU 20:55 → 2RSO 10-11 14:08
PROVIDERS: ADMIT Internal Medicine; ATTEND Internal Medicine
PROC: 3E0F7GC Introduction of Other Therapeutic Substance into Respiratory Tract, Via Natural or Artificial Opening (ICD-10-PCS; principal; 2017-10-10)
DX: T40.1X1A Poisoning by heroin, accidental (unintentional), initial encounter (principal); J44.1 Chronic obstructive pulmonary disease with (acute) exacerbation; F11.23 Opioid dependence with withdrawal; R09.02 Hypoxemia; G93.89 Other specified disorders of brain; T40.605A Adverse effect of unspecified narcotics, initial encounter; E78.5 Hyperlipidemia, unspecified; S00.81XA Abrasion of other part of head, initial encounter; F17.210 Nicotine dependence, cigarettes, uncomplicated; W19.XXXA Unspecified fall, initial encounter; Y92.89 Other specified places as the place of occurrence of the external cause

== ENCOUNTER 2017-10-17 14:35 | Emergency (ER) | payer MEDICAID ==
[2017-10-17 14:36] VITALS: BMI 27.1
--- NOTE | 2017-10-17 14:55 | ED PDOC ---
Arrival/HPI - General Chief Complaint: Substance Abuse Time Seen by Provider: 10/17/17 14:47 Historian: Patient, EMS - History of Present Illness Narrative History of Present Illness (Text): 10/17/17 14:54 pt p/w + found on the street confused and not herself; pt admits to using drugs/ snorting heroin, pt also states she drank alcohol; pt states she felt improved and now she can wants to go home; pt states no fever/chills/sweats, no cp/sob/ palpitation, no abd pain, no n/v, no numbness/tingling, no urinary/bowel changes , no fall/trauma/sick contact, no travel; pt denied other complaints EMS found patient wandering the streets pt denied SI/HI pt states ? auditory hallucinations pt states no visual/tactile hallucinations pt is here for further eval pt's without other complaints. PCP: NONE homeless? Time/Duration: Prior to Arrival Symptom Onset: Sudden Symptom Course: Unchanged Activities at Onset: Rest Context: Walking, Street Past Medical History - Provider Review Nursing Documentation Reviewed: Yes - Travel History Have you recently traveled outside [place] w/in the past 3 mons?: No - Past History Past History: No Previous - Infectious Disease Hx of Infectious Diseases: None - Tetanus Immunization Tetanus Immunization: Unknown - Reproductive Menopause: Yes Currently : No - Cardiac Hx Cardiac Disorders: Yes Hx Hypertension: Yes - Pulmonary Hx Respiratory Disorders: Yes Hx Bronchitis: Yes Hx Chronic Obstructive Pulmonary Disease (COPD): Yes Hx Emphysema: Yes Hx Pneumonia: Yes Hx Respiratory Tract Infection: Yes - Neurological Hx Neurological Disorder: Yes Hx Dizziness: Yes Hx Migraine: Yes - HEENT Hx HEENT Disorder: Yes (blurred vision) Hx Epistaxis: Yes - Renal Hx Renal Disorder: No - Endocrine/Metabolic Hx Endocrine Disorders: Yes Hx Diabetes Mellitus Type 2: Yes (hx of) Hx Hyperthyroidism: Yes - Hematological/Oncological Hx Blood Disorders: Yes Hx Anemia: Yes - Integumentary Hx Dermatological Disorder: No - Musculoskeletal/Rheumatological Hx Musculoskeletal Disorders: No Hx Falls: No - Gastrointestinal Hx Gastrointestinal Disorders: No - Genitourinary/Gynecological Hx Genitourinary Disorders: Yes Hx Urinary Tract Infection: Yes - Psychiatric Hx Psychophysiologic Disorder: Yes Hx Anxiety: Yes Hx Bipolar Disorder: Yes Hx Depression: Yes Hx Hallucinations: Yes Hx Panic Disorder: Yes Hx Post Traumatic Stress Disorder: Yes Hx Substance Use: Yes - Surgical History Hx Amputation: No Hx Appendectomy: No Hx Cholecystectomy: No Hx Gastric Bypass Surgery: No Hx Hysterectomy: No Hx Joint Replacement: No Hx Kidney Transplant: No Hx Liver Transplant: No Hx Mastectomy: No Hx Musculoskeletal Surgery: No Hx Open Heart Surgery: No Hx Orthopedic Surgery: No Hx Splenectomy: No Hx Valve Replacement: No - Anesthesia Hx Anesthesia: Yes Hx Anesthesia Reactions: No Hx Malignant Hyperthermia: No Family/Social History - Physician Review Nursing Documentation Reviewed: Yes Family/Social History: Unknown Family HX Smoking Status: Light Smoker < 10 Cigarettes Daily Hx Alcohol Use: No Hx Substance Use: Yes Allergies/Home Meds Allergies/Adverse Reactions: Allergies Penicillins Allergy (Verified 10/09/17 14:39) RASH sulfur Allergy (Uncoded 10/09/17 14:39) RASH Home Medications: Home Meds Medication Instructions Recorded Confirmed ARIPiprazole [Abilify] 5 mg PO DAILY 10/09/17 10/09/17 Atorvastatin [Lipitor] 20 mg PO DAILY 10/09/17 10/09/17 Cholecalciferol [Vitamin D 1000 IU] 1,000 iu PO DAILY 10/09/17 10/09/17 Fluticasone/Vilanterol [Breo 1 puff INH BID 10/09/17 10/09/17 Ellipta 100-25 Mcg INH] Mirtazapine [Remeron] 30 mg PO DAILY 10/09/17 10/09/17 Ropinirole HCl [Requip] 5 mg PO HS 10/09/17 10/09/17 Vitamin B Complex [Balance B-100] 1 tab PO DAILY 10/09/17 10/09/17 busPIRone [Buspar] 7.5 mg PO DAILY 10/09/17 10/09/17 hydrOXYzine HCl [Atarax] 50 mg PO DAILY 10/09/17 10/09/17 Review of Systems - Review of Systems Constitutional: Normal. absent: Fatigue Eyes: Normal. absent: Vision Changes ENT: Normal. absent: Hearing Changes Respiratory: Normal Cardiovascular: Normal Gastrointestinal: Normal Genitourinary Female: Normal Musculoskeletal: Normal Skin: Normal Neurological: Normal Endocrine: Normal Hemo/Lymphatic: Normal Psychiatric: Other (+ drug use). absent: Anxiety, Depression, Suicidal Ideation Physical Exam Vital Signs Reviewed: Yes Vital Signs Temp Pulse Resp BP Pulse Ox 10/17/17 14:48 100 F H 104 H 20 134/81 95 Temperature: Febrile Blood Pressure: Normal Pulse: Tachycardic Respiratory Rate: Normal Appearance: Positive for: Well-Appearing, Non-Toxic, Comfortable, Other (alert/ awake, GCS = 15, oriented x 2 (not to date/time), cooperative, + anxious and jittery, sitting on exam bed, NAD; pt appears somewhat disshoveled) Pain Distress: None Mental Status: Positive for: other (alert/awake) - Systems Exam Head: Present: Atraumatic, Normocephalic Pupils: Present: PERRL, Other (no nystagmus, no photophobia, sclera anicteric, visual field intact b/l; currently no pinpoint pupils noted) Extroacular Muscles: Present: EOMI Conjunctiva: Present: Normal Ears: Present: Normal Mouth: Present: Dry, Other (poor dentitions, no drooling/stridor, no exudate/ lesions, no dysphonia; uvula/tongue are midline) Pharnyx: Present: Normal Nose (External): Present: Atraumatic Nose (Internal): Present: Normal Inspection Neck: Present: Normal Range of Motion, Other (intact ROM, no step off, no meningeal signs, no nuchal rigidity). No: Meningeal Signs, MIDLINE TENDERNESS, Paraspinal Tenderness Respiratory/Chest: Present: Clear to Auscultation, Good Air Exchange, Other ( coarse basiliar breath sounds noted b/l, no w/r/r, no tachypenia, no accessory muscle use noted). No: Respiratory Distress, Accessory Muscle Use Cardiovascular: Present: Regular Rate and Rhythm, Normal S1, S2. No: Murmurs Abdomen: Present: Normal Bowel Sounds, Other (well nourished female, no focal tenderness, no masses/rebound/guarding/rigidity, no jesus's sign, no mcburney' s point tenderness). No: Tenderness, Distention, Peritoneal Signs Back: Present: Normal Inspection. No: CVA Tenderness, Midline Tenderness Upper Extremity: Present: Normal Inspection, Normal ROM, NORMAL PULSES, Neurovascularly Intact, Capillary Refill < 2s. No: Cyanosis, Edema, Deformity Lower Extremity: Present: Normal Inspection, NORMAL PULSES, Normal ROM, Neurovascularly Intact, Capillary Refill < 2 s. No: Edema, Deformity Neurological: Present: GCS=15, CN II-XII Intact, Speech Normal, Other (NIH stroke scale ~ 0) Skin: Present: Warm, Dry, Normal Color, Other (cap refill ~ 1 sec, no ulcerations, no petechiae). No: Rashes Psychiatric: Present: Alert, Anxious Medical Decision Making ED Course and Treatment: 10/17/17 14:54 Impression: drug abuse, hearing voices i have consider all the differential diagnosis regarding pt's chief medical complaints/clinical findings, including but are not limited to: drug abuse, hearing voices A/P: drug abuse, hearing voices - labs - iv - ekg - utox - supportive care - observe/reevaluation 10/17/17 16:50 pt is comfortable pt states she needs to be released and she needs to go home pt denied other complaints pt states NO HI/SI pt denied hallucinations pt is made aware of her medical results pt is encouraged not to smoke/drink/do drugs pt is encouraged fluids pt will f/u as directed pt will be discharged home Re-evaluation Time: 16:45 Reassessment Condition: Improving,but remains with symptoms - Lab Interpretations Lab Results: 10/17/17 15:40 Lab Results 10/17/17 15:40: Alcohol, Quantitative < 10 10/17/17 15:40: Salicylates < 1 L, Acetaminophen < 10.0 L 10/17/17 15:40: WBC 7.4, RBC 4.19, Hgb 12.4, Hct 37.6, MCV 89.7, MCH 29.6, MCHC 33.0, RDW 14.0, Plt Count 248, MPV 9.9, Gran % 70.0 H, Lymph % (Auto) 23.4, [place] % (Auto) 4.3, Eos % (Auto) 2.2, Baso % (Auto) 0.1, Gran # 5.16, Lymph # ( Auto) 1.7, [place] # (Auto) 0.3, Eos # (Auto) 0.2, Baso # (Auto) 0.01 I have reviewed the lab results: Yes Interpretation: All labs normal - RAD Interpretation Narrative RAD Interpretations (Text): 10/17/17 17:03 PT REFUSED Radiology Orders: 10/17/17 15:11 HEAD W/O CONTRAST [CT] Stat CHEST PORTABLE [RAD] Stat - EKG Interpretation EKG Interpretation (Text): 10/17/17 15:55 NSR at 85 bpm, normal axis, no ectopy, no st-t changes, borderline EKG; unchanged compare with old ekg 10/2017 Interpreted by ED Physician: Yes Type: 12 lead EKG Comparison: Similar to previous EKG - Medication Orders Current Medication Orders: Discontinued Medications Acetaminophen (Tylenol 325mg Tab) 650 mg PO STAT STA Stop: 10/17/17 15:56 Last Admin: 10/17/17 16:18 Dose: 650 mg Disposition/Present on Arrival - Present on Arrival Any Indicators Present on Arrival: No History of DVT/PE: No History of Uncontrolled Diabetes: No Urinary Catheter: No History of Decub. Ulcer: No History Surgical Site Infection Following: None - Disposition Have Diagnosis and Disposition been Completed?: Yes Diagnosis: Drug abuse and dependence, General medical exam Disposition: HOME/ ROUTINE Disposition Time: 16:22 Patient Plan: Discharge Patient Problems: Current Active Problems Problem Status Onset Drug abuse and dependence Acute General medical exam Acute Condition: STABLE Discharge Instructions (ExitCare): Drug Abuse and Drug Addiction (DC), Drug Abuse Treatment Print Language: CZECH Additional Instructions: Make sure to see your doctor in 1-2 days DRINK PLENTY OF FLUIDS take your medications as prescribed DONT DO DRUGS DONT DRINK ALCOHOL DONT SMOKE RETURN TO ED IF worse pain, cant breath, persistent vomiting, high fever >101- 102 for hours, altered behavior, slurr speech, facial changes, focal weakness ( arm/leg or both), unable to urinate, heavy/persistent bleeding, passing out, chest pain, or other medical emergencies Referrals: Jennifer Carrizales MD [Primary Care Provider] - Follow up with primary [facility] [Outside] - Follow up with primary [facility] [Outside] - Follow up with primary appweevr Daryl [place] [Outside] - Follow up with primary [facility] [Outside] - Follow up with primary Forms: appweevr Daryl (Qatari)
[2017-10-17 16:00] LABS: ACETAMINOPHEN < 10.0 ug/ml (10.0-20.0); SALICYLATE < 1 mg/dL (2.0-20.0)
[2017-10-17 16:02] LABS: BASO # 0.01 K/mm3 (0.0-2.0); BASO % 0.1 % (0.0-3.0); EOS # 0.2 (0.0-0.7); EOS % 2.2 % (1.5-5.0); GRAN # 5.16 (1.4-6.5); HEMOGLOBIN 12.4 g/dL (12.0-16.0); LYMPH # 1.7 (1.2-3.4); LYMPH % 23.4 % (22.0-35.0); MEAN CELL VOLUME 89.7 fl (80.0-105.0); MEAN CORPUSCULAR HEMOGLOBIN 29.6 pg (25.0-35.0); MEAN PLATELET VOLUME 9.9 fl (7.0-11.0); MONO # 0.3 (0.1-0.6); MONO % 4.3 % (1.0-6.0); RBC 4.19 10^6/uL (3.5-6.1); WHITE BLOOD COUNT 7.4 10^3/ul (4.5-11.0)
[2017-10-17 16:24] LABS: ALB/GLOB RATIO 1.5 (1.1-1.8); ALBUMIN 3.6 g/dL (3.0-4.8); ALT/SGPT 44 U/L (7-56); AST/SGOT 48 U/L (14-36); BLOOD UREA NITROGEN 16 mg/dL (7-21); CALCIUM 8.3 mg/dL (8.4-10.5); GFR AFRICAN-AMERICAN > 60; GFR NON-AFRICAN AMERICAN > 60
[2017-10-17 16:51] VITALS: BP 140/86; PULSE 98; RESP 18; O2SAT 98
[2017-10-17 18:13] VITALS: TEMP 99.9
--- NOTE | 2017-10-18 10:07 | CARD ---
APPROVED REPORT EKG Measurement Heart [id number] <Conclusion> Normal sinus rhythm Normal ECG Artifact present No change except the rate is slower
== END 2017-10-17 16:50 | disposition home or self-care (01) ==
LOC: ED 14:35
DX: Z00.00 Encounter for general adult medical examination without abnormal findings (principal); F19.20 Other psychoactive substance dependence, uncomplicated; E11.9 Type 2 diabetes mellitus without complications; F17.210 Nicotine dependence, cigarettes, uncomplicated; I10 Essential (primary) hypertension

== ENCOUNTER 2017-11-07 10:36 | Emergency (ER) | payer MEDICAID ==
[2017-11-07 10:47] VITALS: BMI 22.3
[2017-11-07 11:03] VITALS: RESP 18
[2017-11-07 12:14] LABS: BASO # 0.01 K/mm3 (0.0-2.0); BASO % 0.2 % (0.0-3.0); EOS # 0.1 (0.0-0.7); EOS % 2.4 % (1.5-5.0); GRAN # 3.32 (1.4-6.5); GRAN % 67.5 % (50.0-68.0); HEMOGLOBIN 13.7 g/dL (12.0-16.0); LYMPH # 1.3 (1.2-3.4); LYMPH % 25.4 % (22.0-35.0); MEAN CELL VOLUME 88.3 fl (80.0-105.0); MEAN CORPUSCULAR HEMOGLOBIN 29.7 pg (25.0-35.0); MEAN CORPUSCULAR HGB CONC 33.7 g/dl (31.0-37.0); MEAN PLATELET VOLUME 9.9 fl (7.0-11.0); MONO # 0.2 (0.1-0.6); MONO % 4.5 % (1.0-6.0); RBC 4.61 10^6/uL (3.5-6.1); RED CELL DISTRIBUTION WIDTH 14.1 % (11.5-14.5); WHITE BLOOD COUNT 4.9 10^3/ul (4.5-11.0)
[2017-11-07 12:23] LABS: ALB/GLOB RATIO 1.5 (1.1-1.8); ALBUMIN 4.2 g/dL (3.0-4.8); ALT/SGPT 30 U/L (7-56); AST/SGOT 29 U/L (14-36); BLOOD UREA NITROGEN 16 mg/dL (7-21); CALCIUM 9.1 mg/dL (8.4-10.5); GFR AFRICAN-AMERICAN > 60; GFR NON-AFRICAN AMERICAN > 60
--- NOTE | 2017-11-07 12:27 | CT ---
PROCEDURE: CT HEAD WITHOUT CONTRAST. HISTORY: r/o ICH COMPARISON: 10/09/2017 TECHNIQUE: Axial computed tomography images were obtained through the head/brain without intravenous contrast. Radiation dose: Total exam DLP = 850.37 mGy-cm. This CT exam was performed using one or more of the following dose reduction techniques: Automated exposure control, adjustment of the mA and/or kV according to patient size, and/or use of iterative reconstruction technique. FINDINGS: HEMORRHAGE: No intracranial hemorrhage. BRAIN: No mass effect or edema. No atrophy or chronic microvascular ischemic changes. VENTRICLES: Unremarkable. No hydrocephalus. CALVARIUM: Unremarkable. PARANASAL SINUSES: Minimal chronic sphenoid sinusitis MASTOID AIR CELLS: Unremarkable as visualized. No inflammatory changes. OTHER FINDINGS: None. IMPRESSION: No intracranial hemorrhage. Minimal chronic sphenoid sinusitis. Otherwise unremarkable examination.
--- NOTE | 2017-11-07 12:28 | RAD ---
HISTORY: weakness COMPARISON: 10/09/2017 FINDINGS: LUNGS: No active pulmonary disease. PLEURA: No significant pleural effusion identified, no pneumothorax apparent. CARDIOVASCULAR: Normal. OSSEOUS STRUCTURES: No significant abnormalities. VISUALIZED UPPER ABDOMEN: Normal. OTHER FINDINGS: None. IMPRESSION: No active disease.
[2017-11-07 12:31] LABS: TROPONIN I < 0.01 ng/mL
[2017-11-07 13:56] LABS: PH,URINE 5.5 (4.7-8.0); URINE BILIRUBIN NEGATIVE (NEGATIVE); URINE BLOOD NEGATIVE (NEGATIVE); URINE GLUCOSE (UA) NEGATIVE (NEGATIVE); URINE LEUKOCYTE ESTERASE TRACE Leu/uL (NEGATIVE); URINE PROTEIN 30 mg/dL (<30 mg/dL); URINE UROBILINOGEN 0.2 E.U./dL (<1 E.U./dL)
[2017-11-07 14:01] LABS: URINE APPEARANCE SL CLOUDY (CLEAR); URINE COLOR YELLOW (YELLOW)
[2017-11-07 14:03] LABS: URINE BACTERIA TRACE (NEG); URINE RBC NEGATIVE /hpf (0-2)
[2017-11-07 14:04] LABS: URINE FINE GRANULAR CAST 0 - 2 /hpf (0-2)
[2017-11-07 15:07] LABS: BARBITURATES, UR NEGATIVE (NEGATIVE); BENZODIAZEPINES, UR NEGATIVE (NEGATIVE); OPIATES, UR POSITIVE (NEGATIVE)
[2017-11-07 15:35] VITALS: BP 126/91; PULSE 89; TEMP 98; O2SAT 96
[2017-11-07 15:46] LABS: PHENCYCLIDINE, UR NEGATIVE (NEGATIVE)
--- NOTE | 2017-11-07 15:51 | ED PDOC ---
Arrival/HPI - General Chief Complaint: Substance Abuse Time Seen by Provider: 11/07/17 11:08 Historian: Patient - History of Present Illness Narrative History of Present Illness (Text): 11/07/17 15:57 A 62 year old female, whose past medical history includes substance abuse ( Heroin), COPD, depression, and dyslipidemia, is brought into the emergency department via EMS after being found sleeping outside. EMS brought the patient in for further evaluation. She admits to using heroin and denies any physical complaints. The patient denies fevers, chills, headache, dizziness, chest pain , shortness of breath, dyspnea on exertion, cough, abdominal pain, nausea, vomiting, diarrhea, back pain, neck pain, urinary/bowel changes, or any other complaint. PMD: Dr. Carrizales Time/Duration: Prior to Arrival Symptom Onset: Sudden Symptom Course: Unchanged Activities at Onset: Rest, Light Context: Street Past Medical History - Provider Review Nursing Documentation Reviewed: Yes - Past History Past History: No Previous - Infectious Disease Hx of Infectious Diseases: None - Tetanus Immunization Tetanus Immunization: Unknown - Reproductive Menopause: Yes - Cardiac Hx Cardiac Disorders: Yes Hx Hypertension: Yes - Pulmonary Hx Respiratory Disorders: Yes Hx Bronchitis: Yes Hx Chronic Obstructive Pulmonary Disease (COPD): Yes Hx Emphysema: Yes Hx Pneumonia: Yes Hx Respiratory Tract Infection: Yes - Neurological Hx Neurological Disorder: Yes Hx Dizziness: Yes Hx Migraine: Yes - HEENT Hx HEENT Disorder: Yes (blurred vision) Hx Epistaxis: Yes - Renal Hx Renal Disorder: No - Endocrine/Metabolic Hx Endocrine Disorders: Yes Hx Diabetes Mellitus Type 2: Yes (hx of) Hx Hyperthyroidism: Yes - Hematological/Oncological Hx Blood Disorders: Yes Hx Anemia: Yes - Integumentary Hx Dermatological Disorder: No - Musculoskeletal/Rheumatological Hx Musculoskeletal Disorders: No Hx Falls: No - Gastrointestinal Hx Gastrointestinal Disorders: No - Genitourinary/Gynecological Hx Genitourinary Disorders: Yes Hx Urinary Tract Infection: Yes - Psychiatric Hx Psychophysiologic Disorder: Yes Hx Anxiety: Yes Hx Bipolar Disorder: Yes Hx Depression: Yes Hx Hallucinations: Yes Hx Panic Disorder: Yes Hx Post Traumatic Stress Disorder: Yes Hx Substance Use: Yes - Surgical History Hx Amputation: No Hx Appendectomy: No Hx Cholecystectomy: No Hx Gastric Bypass Surgery: No Hx Hysterectomy: No Hx Joint Replacement: No Hx Kidney Transplant: No Hx Liver Transplant: No Hx Mastectomy: No Hx Musculoskeletal Surgery: No Hx Open Heart Surgery: No Hx Orthopedic Surgery: No Hx Splenectomy: No Hx Valve Replacement: No - Anesthesia Hx Anesthesia: Yes Hx Anesthesia Reactions: No Hx Malignant Hyperthermia: No Family/Social History - Physician Review Nursing Documentation Reviewed: Yes Family/Social History: No Known Family HX Smoking Status: Light Smoker < 10 Cigarettes Daily Hx Alcohol Use: No Hx Substance Use: Yes Substance used: heroin Allergies/Home Meds Allergies/Adverse Reactions: Allergies Penicillins Allergy (Verified 10/09/17 14:39) RASH sulfur Allergy (Uncoded 10/09/17 14:39) RASH Home Medications: Home Meds Medication Instructions Recorded Confirmed ARIPiprazole [Abilify] 5 mg PO DAILY 10/09/17 10/09/17 Atorvastatin [Lipitor] 20 mg PO DAILY 10/09/17 10/09/17 Cholecalciferol [Vitamin D 1000 IU] 1,000 iu PO DAILY 10/09/17 10/09/17 Fluticasone/Vilanterol [Breo 1 puff INH BID 10/09/17 10/09/17 Ellipta 100-25 Mcg INH] Mirtazapine [Remeron] 30 mg PO DAILY 10/09/17 10/09/17 Ropinirole HCl [Requip] 5 mg PO HS 10/09/17 10/09/17 Vitamin B Complex [Balance B-100] 1 tab PO DAILY 10/09/17 10/09/17 busPIRone [Buspar] 7.5 mg PO DAILY 10/09/17 10/09/17 hydrOXYzine HCl [Atarax] 50 mg PO DAILY 10/09/17 10/09/17 Review of Systems - Physician Review All systems were reviewed & negative as marked: Yes - Review of Systems Constitutional: absent: Fevers, Night Sweats Respiratory: absent: SOB, Cough Cardiovascular: absent: Chest Pain, [place] Gastrointestinal: absent: Abdominal Pain, Stool Changes, Diarrhea, Nausea, Vomiting Genitourinary Female: absent: Urine Output Changes Musculoskeletal: absent: Back Pain, Neck Pain Neurological: absent: Headache, Dizziness Physical Exam Vital Signs Reviewed: Yes Vital Signs Temp Pulse Resp BP Pulse Ox 11/07/17 15:30 98 F 89 18 126/91 H 96 11/07/17 13:00 88 16 135/89 96 11/07/17 11:02 98.3 F 105 H 18 157/83 H 95 Temperature: Afebrile Blood Pressure: Hypertensive Pulse: Tachycardic Respiratory Rate: Normal Appearance: Positive for: Well-Appearing, Non-Toxic, Comfortable Pain Distress: None Mental Status: Positive for: Alert and Oriented X 3 - Systems Exam Head: Present: Atraumatic, Normocephalic Pupils: Present: Pinpoint Extroacular Muscles: Present: EOMI Conjunctiva: Present: Normal Mouth: Present: Moist Mucous Membranes Neck: Present: Normal Range of Motion Respiratory/Chest: Present: Clear to Auscultation, Good Air Exchange. No: Respiratory Distress, Accessory Muscle Use Cardiovascular: Present: Regular Rate and Rhythm, Normal S1, S2. No: Murmurs Abdomen: No: Tenderness, Distention, Peritoneal Signs Back: Present: Normal Inspection Upper Extremity: Present: Normal Inspection. No: Cyanosis, Edema Lower Extremity: Present: Normal Inspection. No: Edema Neurological: Present: GCS=15, CN II-XII Intact, Speech Normal Skin: Present: Warm, Dry, Normal Color. No: Rashes Psychiatric: Present: Alert, Oriented x 3, Normal Insight, Normal Concentration Medical Decision Making ED Course and Treatment: 11/07/17 15:51 Impression: A 62 year old female is brought into the emergency department via EMS for further evaluation after being found sleeping on the street. Plan: -- EKG -- Head CT -- Chest X-ray -- Urinalysis -- Labs -- Reassess and disposition Prior Visits: Notes and results from previous visits were reviewed. Patient was last seen in the emergency department on 10/17/2017. The patient was seen in the emergency department for further evaluation after being found disoriented on the street s/ p alcohol and drug use. The patient was discharged home. Progress Notes: PROCEDURE: CT HEAD WITHOUT CONTRAST Dictated By: Murali Irwin MD Date Signed: 10/28/17 12:25 IMPRESSIOn: No intracranial hemorrhage. Minimal chronic sphenoid sinusitis. Otherwise unremarkable examination. CHEST X-RAY Dictated By: Murali Irwin MD Date Signed: 10/28/17 12:26 IMPRESSION: No active disease. 11/07/17 16:39 EKG: Ordered, reviewed, and independently interpreted the EKG. Rate : 105 BPM Rhythm : Sinus Tachycardia - Lab Interpretations Lab Results: 11/07/17 11:55 11/07/17 11:55 Lab Results 11/07/17 13:39: Urine Opiates Screen Positive H, Urine Methadone Screen Negative , Ur Barbiturates Screen Negative, Ur Phencyclidine Scrn Negative, Ur Amphetamines Screen Negative, U Benzodiazepines Scrn Negative, U Oth Cocaine Metabols Negative, U Cannabinoids Screen Negative 11/07/17 13:39: Urine Color Yellow, Urine Appearance Sl cloudy, Urine pH 5.5, Ur Specific [place] >= 1.030, Urine Protein 30 H, Urine Glucose (UA) Negative, Urine Ketones Negative, Urine Blood Negative, Urine Nitrate Negative, Urine Bilirubin Negative, Urine Urobilinogen 0.2, Ur Leukocyte Esterase Trace H, Urine RBC Negative, Urine WBC 2 - 5, Ur Epithelial Cells 3 - 4, Urine Bacteria Trace, Hyaline Casts 2 - 5, Fine Granular Casts 0 - 2 11/07/17 11:55: Alcohol, Quantitative < 10 11/07/17 11:55: Sodium 141, Potassium 4.8, Chloride 105, Carbon Dioxide 26, Anion Gap 14, BUN 16, Creatinine 0.7, Est GFR ( Amer) > 60, Est GFR (Non- Af Amer) > 60, Random Glucose 118 H, Calcium 9.1, Magnesium 2.1, Total Bilirubin 0.1 L, AST 29, ALT 30, Alkaline Phosphatase 74, Lactate Dehydrogenase 499, Total Creatine Kinase 115, Troponin I < 0.01, Total Protein 7.0, Albumin 4.2, Globulin 2.9, Albumin/Globulin Ratio 1.5 11/07/17 11:55: WBC 4.9 D, RBC 4.61, Hgb 13.7, Hct 40.7, MCV 88.3, MCH 29.7, MCHC 33.7, RDW 14.1, Plt Count 276, MPV 9.9, Gran % 67.5, Lymph % (Auto) 25.4, [place] % (Auto) 4.5, Eos % (Auto) 2.4, Baso % (Auto) 0.2, Gran # 3.32, Lymph # ( Auto) 1.3, [place] # (Auto) 0.2, Eos # (Auto) 0.1, Baso # (Auto) 0.01 I have reviewed the lab results: Yes - RAD Interpretation Radiology Orders: 11/07/17 11:11 HEAD W/O CONTRAST [CT] Stat CHEST PORTABLE [RAD] Stat - EKG Interpretation Interpreted by ED Physician: Yes Type: 12 lead EKG - Scribe Statement The provider has reviewed the documentation as recorded by the Tioibviviana Gomez Provider Lala Attestation: All medical record entries made by the Scribe were at my direction and personally dictated by me. I have reviewed the chart and agree that the record accurately reflects my personal performance of the history, physical exam, medical decision making, and the department course for this patient. I have also personally directed, reviewed, and agree with the discharge instructions and disposition. Disposition/Present on Arrival - Present on Arrival Any Indicators Present on Arrival: No History of DVT/PE: No History of Uncontrolled Diabetes: No Urinary Catheter: No History of Decub. Ulcer: No History Surgical Site Infection Following: None - Disposition Have Diagnosis and Disposition been Completed?: No Diagnosis: Opiate abuse, continuous Disposition: HOME/ ROUTINE Disposition Time: 12:35 Condition: IMPROVED Discharge Instructions (ExitCare): Drug Abuse and Drug Addiction (DC) Additional Instructions: Thank you for letting us take care of you today. The emergency medical care you received today was directed at your acute symptoms. If you were prescribed any medication, please fill it and take as directed. It may take several days for your symptoms to resolve. Return to the Emergency Department if your symptoms worsen, do not improve, or if you have any other problems. Please contact your doctor or call one of the physicians/clinics you have been referred to that are listed on the Patient Visit Information form that is included in your discharge packet. Bring any paperwork you were given at discharge with you along with any medications you are taking to your follow up visit. Our treatment cannot replace ongoing medical care by a primary care provider (PCP) outside of the emergency department. Thank you for allowing the [facility] team to be part of your care today. Follow up with your primary care doctor or our clinic in 3-5 days for re- evaluation and further management. Referrals: [facility] [Outside] - Follow up with primary [facility] [Outside] - Follow up with primary [facility], [Primary Care Provider] - Follow up with primary Forms: [employer] (Yi)
--- NOTE | 2017-11-07 23:37 | CARD ---
APPROVED REPORT EKG Measurement Heart [id number] <Conclusion> Sinus tachycardia Possible Left atrial enlargement Borderline ECG
== END 2017-11-07 15:34 | disposition home or self-care (01) ==
LOC: ED 10:36
DX: F11.10 Opioid abuse, uncomplicated (principal); I10 Essential (primary) hypertension; D64.9 Anemia, unspecified; F17.210 Nicotine dependence, cigarettes, uncomplicated

== ENCOUNTER 2017-11-08 11:38 | Emergency (ER) | payer MEDICAID ==
[2017-11-08 11:38] VITALS: BMI 22.3
--- NOTE | 2017-11-08 12:09 | ED PDOC ---
Arrival/HPI - General Chief Complaint: Seizure Time Seen by Provider: 11/08/17 11:43 Historian: Patient - History of Present Illness Narrative History of Present Illness (Text): 11/08/17 12:04 A 62 year old female, whose past medical history includes substance abuse ( Heroin), COPD, depression, and dyslipidemia, is brought into the emergency department via EMS for further evaluation after experiencing a seizure this morning. The patient states that [place] the [place] se[place]. She admits to snorting heroin today. She states that she has a history of seizures and notes that she is supposed to be on medication, but does not take them. She states that she is looking for a place to stay. The patient notes that she was seen yesterday for similar symptoms after being found unresponsive. She admits to heroin use then. A CT scan was done and she was discharged home. The patient denies fevers, chills, headache, dizziness, chest pain, shortness of breath, dyspnea on exertion, cough, abdominal pain, nausea, vomiting, diarrhea, back pain, neck pain, urinary/bowel changes, IV drug use, alcohol use or any other complaint. PMD: Dr. Carrizales Time/Duration: Other (This Morning) Symptom Onset: Sudden Symptom Course: Unchanged Activities at Onset: Rest, Light Context: Other (Park) Associated Symptoms (Text): 11/08/17 12:31 Seen in the emergency department yesterday after being found in a park unresponsive. Admits to heroin abuse. Patient was found in the park today actively seizing. She reports a seizure history on no medications. She reports she was snorting heroin again today. She is homeless. Past Medical History - Provider Review Nursing Documentation Reviewed: Yes - Past History Past History: No Previous - Infectious Disease Hx of Infectious Diseases: None - Tetanus Immunization Tetanus Immunization: Unknown - Reproductive Menopause: Yes - Cardiac Hx Cardiac Disorders: Yes Hx Hypertension: Yes - Pulmonary Hx Respiratory Disorders: Yes Hx Bronchitis: Yes Hx Chronic Obstructive Pulmonary Disease (COPD): Yes Hx Emphysema: Yes Hx Pneumonia: Yes Hx Respiratory Tract Infection: Yes - Neurological Hx Neurological Disorder: Yes Hx Dizziness: Yes Hx Migraine: Yes - HEENT Hx HEENT Disorder: Yes (blurred vision) Hx Epistaxis: Yes - Renal Hx Renal Disorder: No - Endocrine/Metabolic Hx Endocrine Disorders: Yes Hx Diabetes Mellitus Type 2: Yes (hx of) Hx Hyperthyroidism: Yes - Hematological/Oncological Hx Blood Disorders: Yes Hx Anemia: Yes - Integumentary Hx Dermatological Disorder: No - Musculoskeletal/Rheumatological Hx Musculoskeletal Disorders: No Hx Falls: No - Gastrointestinal Hx Gastrointestinal Disorders: No - Genitourinary/Gynecological Hx Genitourinary Disorders: Yes Hx Urinary Tract Infection: Yes - Psychiatric Hx Psychophysiologic Disorder: Yes Hx Anxiety: Yes Hx Bipolar Disorder: Yes Hx Depression: Yes Hx Hallucinations: Yes Hx Panic Disorder: Yes Hx Post Traumatic Stress Disorder: Yes Hx Substance Use: Yes - Surgical History Hx Amputation: No Hx Appendectomy: No Hx Cholecystectomy: No Hx Gastric Bypass Surgery: No Hx Hysterectomy: No Hx Joint Replacement: No Hx Kidney Transplant: No Hx Liver Transplant: No Hx Mastectomy: No Hx Musculoskeletal Surgery: No Hx Open Heart Surgery: No Hx Orthopedic Surgery: No Hx Splenectomy: No Hx Valve Replacement: No - Anesthesia Hx Anesthesia: Yes Hx Anesthesia Reactions: No Hx Malignant Hyperthermia: No Family/Social History - Physician Review Nursing Documentation Reviewed: Yes Family/Social History: No Known Family HX Smoking Status: Light Smoker < 10 Cigarettes Daily Hx Alcohol Use: No Hx Substance Use: Yes Substance used: heroin Allergies/Home Meds Allergies/Adverse Reactions: Allergies Penicillins Allergy (Verified 11/08/17 11:53) RASH sulfur Allergy (Uncoded 10/09/17 14:39) RASH Home Medications: Home Meds Medication Instructions Recorded Confirmed ARIPiprazole [Abilify] 5 mg PO DAILY 10/09/17 10/09/17 Atorvastatin [Lipitor] 20 mg PO DAILY 10/09/17 10/09/17 Cholecalciferol [Vitamin D 1000 IU] 1,000 iu PO DAILY 10/09/17 10/09/17 Fluticasone/Vilanterol [Breo 1 puff INH BID 10/09/17 10/09/17 Ellipta 100-25 Mcg INH] Mirtazapine [Remeron] 30 mg PO DAILY 10/09/17 10/09/17 Ropinirole HCl [Requip] 5 mg PO HS 10/09/17 10/09/17 Vitamin B Complex [Balance B-100] 1 tab PO DAILY 10/09/17 10/09/17 busPIRone [Buspar] 7.5 mg PO DAILY 10/09/17 10/09/17 hydrOXYzine HCl [Atarax] 50 mg PO DAILY 10/09/17 10/09/17 Review of Systems - Physician Review All systems were reviewed & negative as marked: Yes - Review of Systems Constitutional: Fatigue. absent: Fevers, Night Sweats Respiratory: absent: SOB, Cough Cardiovascular: absent: Chest Pain, Palpitations, [place] Gastrointestinal: absent: Abdominal Pain, Stool Changes, Diarrhea, Nausea, Vomiting Genitourinary Female: absent: Urine Output Changes Musculoskeletal: absent: Back Pain, Neck Pain Neurological: Seizure. absent: Headache, Dizziness, Focal Weakness Physical Exam Vital Signs Reviewed: Yes Vital Signs Temp Pulse Resp BP Pulse Ox 11/08/17 12:13 99.0 F 112 H 16 113/71 85 L Temperature: Afebrile Blood Pressure: Normal Pulse: Tachycardic Respiratory Rate: Normal Appearance: Positive for: Other (Chronically appearing. ) Pain Distress: None Mental Status: Positive for: Alert and Oriented X 3 - Systems Exam Head: Present: Atraumatic, Normocephalic Pupils: Present: PERRL Extroacular Muscles: Present: EOMI Conjunctiva: Present: Normal Mouth: Present: Moist Mucous Membranes Pharnyx: No: ERYTHEMA, EXUDATE, TONSILS ENLARGED Neck: Present: Normal Range of Motion Respiratory/Chest: Present: Decreased Breath Sounds (Diminished breath sounds bilaterally.). No: Respiratory Distress, Accessory Muscle Use, Wheezes, Rales, Retracting, Rhonchi, Tachypneic Cardiovascular: Present: Regular Rate and Rhythm, Normal S1, S2, Tachycardic. No: Murmurs Abdomen: No: Tenderness, Distention, Peritoneal Signs Back: Present: Normal Inspection Upper Extremity: Present: Normal Inspection. No: Cyanosis, Edema Lower Extremity: Present: Normal Inspection. No: Edema Neurological: Present: GCS=15, CN II-XII Intact, Speech Normal, Motor Func Grossly Intact, Normal Cerebellar Funct, Gait Normal Skin: Present: Warm, Normal Color, Diaphoretic. No: Rashes Psychiatric: Present: Alert, Oriented x 3, Normal Insight, Normal Concentration Medical Decision Making ED Course and Treatment: 11/08/17 12:10 Impression: A 62 year old female is brought into the after being found actively seizing in a park this morning. Plan: -- EKG -- Labs -- Reassess and disposition Prior Visits: Notes and results from previous visits were reviewed. Patient was last seen in the emergency department on 11/07/17. The patient was seen in the emergency department after she was found unresponsive outside. The patient was discharged home. Progress Notes: 11/08/17 12:34 EKG shows sinus tachycardia rate approximately [address] or T-wave changes - Lab Interpretations Lab Results: 11/08/17 13:26 11/08/17 13:26 Lab Results 11/08/17 13:26: Sodium 142, Potassium 4.6, Chloride 107, Carbon Dioxide 25, Anion Gap 15, BUN 16, Creatinine 0.7, Est GFR ( Amer) > 60, Est GFR (Non- Af Amer) > 60, Random Glucose 110, Calcium 9.2, Magnesium 2.1, Total Bilirubin 0.1 L, AST 26, ALT 31, Alkaline Phosphatase 73, Lactate Dehydrogenase 502, Total Creatine Kinase 74, Troponin I Pending, Total Protein 7.1, Albumin 4.2, Globulin 2.9, Albumin/Globulin Ratio 1.5 11/08/17 13:26: WBC 5.4, RBC 4.47, Hgb 13.2, Hct 39.5, MCV 88.4, MCH 29.5, MCHC 33.4, RDW 14.1, Plt Count 262, MPV 10.1, Gran % 65.9, Lymph % (Auto) 24.5, [place] % (Auto) 7.7 H, Eos % (Auto) 1.7, Baso % (Auto) 0.2, Gran # 3.58, Lymph # (Auto ) 1.3, [place] # (Auto) 0.4, Eos # (Auto) 0.1, Baso # (Auto) 0.01 I have reviewed the lab results: Yes - EKG Interpretation Interpreted by ED Physician: Yes Type: 12 lead EKG - Scribe Statement The provider has reviewed the documentation as recorded by the Scribe Bianka Gomez Provider Scribe Attestation: All medical record entries made by the Scribe were at my direction and personally dictated by me. I have reviewed the chart and agree that the record accurately reflects my personal performance of the history, physical exam, medical decision making, and the department course for this patient. I have also personally directed, reviewed, and agree with the discharge instructions and disposition. Disposition/Present on Arrival - Present on Arrival Any Indicators Present on Arrival: No History of DVT/PE: No History of Uncontrolled Diabetes: No Urinary Catheter: No History of Decub. Ulcer: No History Surgical Site Infection Following: None - Disposition Have Diagnosis and Disposition been Completed?: Yes Diagnosis: Seizure, Substance abuse Disposition: HOSPITALIZED Disposition Time: 14:08 Patient Plan: Observation, Telemetry Condition: FAIR Forms: [employer] ([place])
[2017-11-08 12:14] VITALS: TEMP 99
[2017-11-08 13:47] LABS: BASO # 0.01 K/mm3 (0.0-2.0); BASO % 0.2 % (0.0-3.0); EOS # 0.1 (0.0-0.7); EOS % 1.7 % (1.5-5.0); GRAN # 3.58 (1.4-6.5); GRAN % 65.9 % (50.0-68.0); HEMOGLOBIN 13.2 g/dL (12.0-16.0); LYMPH # 1.3 (1.2-3.4); LYMPH % 24.5 % (22.0-35.0); MEAN CELL VOLUME 88.4 fl (80.0-105.0); MEAN CORPUSCULAR HEMOGLOBIN 29.5 pg (25.0-35.0); MEAN CORPUSCULAR HGB CONC 33.4 g/dl (31.0-37.0); MEAN PLATELET VOLUME 10.1 fl (7.0-11.0); MONO # 0.4 (0.1-0.6); MONO % 7.7 % (1.0-6.0); RBC 4.47 10^6/uL (3.5-6.1); RED CELL DISTRIBUTION WIDTH 14.1 % (11.5-14.5); WHITE BLOOD COUNT 5.4 10^3/ul (4.5-11.0)
[2017-11-08 13:58] LABS: ALB/GLOB RATIO 1.5 (1.1-1.8); ALBUMIN 4.2 g/dL (3.0-4.8); ALT/SGPT 31 U/L (7-56); AST/SGOT 26 U/L (14-36); BLOOD UREA NITROGEN 16 mg/dL (7-21); CALCIUM 9.2 mg/dL (8.4-10.5); GFR AFRICAN-AMERICAN > 60; GFR NON-AFRICAN AMERICAN > 60
[2017-11-08 14:10] LABS: TROPONIN I < 0.01 ng/mL
[2017-11-08 14:31] LABS: VENOUS BLOOD GAS BASE EXCESS -0.7 mmol/L (0.0-2.0); VENOUS BLOOD GAS PO2 102 mm/Hg (30-55); VENOUS BLOOD PH 7.29 (7.32-7.43)
--- NOTE | 2017-11-08 15:04 | CP.PCM.HP ---
Addendum entered and electronically signed by Chang Delgado DO 11/08/17 15: 06: Patient was alert and oriented x3. Decided to Leave AMA. The risks of leaving as well as the benefits of staying were discussed in detail with the patient. She still insisted on leaving. The forms were signed in front of the nurse. Original Note: <Chang Delgado - Last Filed: 11/08/17 14:40> History of Present Illness - History of Present Illness History of Present Illness: Patient is a 62F with a PMH of COPD who comes to the ED brought in by ems [place]. She states the last thing she remembers is doing 4 bags of heroine. She does heroine every day and does not have any history of seizures despite prior reports. She states that she lives with her sister and does not want her sister to know that she is doing heroine. She does not have any complaints at this time. She is not confused. She denies any headache, vision changes, hearing problems, throat pain, chest pain, SOB, palpitations, cough, wheeze, abdominal pain, diarrhea, constipation, vomiting, nausea, dysuria, swelling. Able to ambulate without difficultly. Tolerating a diet. 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 Previous boyfriend introduced her to heroine. 2 sisters in quick succession recently. Boyfriend also . Smokes 1ppd for over 50 years. Former drinker. Snorts heroine. Never IV All: Sulfur Present on Admission - Present on Admission Any Indicators Present on Admission: No Review of Systems - Review of Systems Review of Systems: per HPI Past Patient History - Infectious Disease Hx of Infectious Diseases: None - Tetanus Immunizations Tetanus Immunization: Unknown - Past Social History Smoking Status: Light Smoker < 10 Cigarettes Daily - CARDIAC Hx Cardiac Disorders: Yes Hx Hypertension: Yes - PULMONARY Hx Respiratory Disorders: Yes Hx Bronchitis: Yes Hx Chronic Obstructive Pulmonary Disease (COPD): Yes Hx Emphysema: Yes Hx Pneumonia: Yes Hx Respiratory Tract Infection: Yes - NEUROLOGICAL Hx Neurological Disorder: Yes Hx Dizziness: Yes Hx Migraine: Yes - HEENT Hx HEENT Problems: Yes (blurred vision) Hx Epistaxis: Yes - RENAL Hx Chronic Kidney Disease: No - ENDOCRINE/METABOLIC Hx Endocrine Disorders: Yes Hx Diabetes Mellitus Type 2: Yes (hx of) Hx Hyperthyroidism: Yes - HEMATOLOGICAL/ONCOLOGICAL Hx Blood Disorders: Yes Hx Anemia: Yes - INTEGUMENTARY Hx Dermatological Problems: No - MUSCULOSKELETAL/RHEUMATOLOGICAL Hx Musculoskeletal Disorders: No Hx Falls: No - GASTROINTESTINAL Hx Gastrointestinal Disorders: No - GENITOURINARY/GYNECOLOGICAL Hx Genitourinary Disorders: Yes Hx Urinary Tract Infection: Yes - PSYCHIATRIC Hx Psychophysiologic Disorder: Yes Hx Anxiety: Yes Hx Bipolar Disorder: Yes Hx Depression: Yes Hx Hallucinations: Yes Hx Panic Symptoms: Yes Hx Post Traumatic Stress Disorder: Yes Hx Substance Use: Yes - SURGICAL HISTORY Hx Amputation: No Hx Appendectomy: No Hx Cholecystectomy: No Hx Gastric Bypass Surgery: No Hx Hysterectomy: No Hx Joint Replacement: No Hx Kidney Transplant: No Hx Liver Transplant: No Hx Mastectomy: No Hx Musculoskeletal Surgery: No Hx Open Heart Surgery: No Hx Orthopedic Surgery: No Hx Splenectomy: No Hx Valve Replacement: No - ANESTHESIA Hx Anesthesia: Yes Hx Anesthesia Reactions: No Hx Malignant Hyperthermia: No Meds Allergies/Adverse Reactions: Allergies Allergy/AdvReac Type Severity Reaction Status Date / Time Penicillins Allergy RASH Verified 11/08/17 11:53 sulfur Allergy RASH Uncoded 10/09/17 14:39 Physical Exam - Constitutional Appears: Well - Head Exam Head Exam: ATRAUMATIC, NORMAL INSPECTION, NORMOCEPHALIC - Eye Exam Eye Exam: EOMI, Normal appearance, PERRL Pupil Exam: NORMAL ACCOMODATION, PERRL - ENT Exam ENT Exam: Mucous Membranes Moist, Normal Exam - Neck Exam Neck exam: Positive for: Normal Inspection - Respiratory Exam Respiratory Exam: Clear to Auscultation Bilateral, NORMAL BREATHING PATTERN - Cardiovascular Exam Cardiovascular Exam: REGULAR RHYTHM - GI/Abdominal Exam GI & Abdominal Exam: Normal Bowel Sounds, Soft. absent: Distended, Tenderness - Extremities Exam Extremities exam: Positive for: normal inspection. Negative for: joint swelling , tenderness - Back Exam Back exam: NORMAL INSPECTION - Neurological Exam Neurological exam: Alert, CN II-XII Intact, Normal Gait, Oriented x3, Reflexes Normal - Psychiatric Exam Psychiatric exam: Normal Affect, Normal Mood - Skin Skin Exam: Dry, Intact, Normal Color, Warm Results - Vital Signs Recent Vital Signs: Last Vital Signs Temp 99.0 F 11/08/17 12:13 Pulse 112 H 11/08/17 12:13 Resp 16 11/08/17 12:13 BP 113/71 11/08/17 12:13 Pulse Ox 85 L 11/08/17 12:13 - Labs Result Diagrams: 11/08/17 13:26 11/08/17 13:26 Labs: Laboratory Results - last 24 hr 11/08/17 14:27 pO2 102 H VBG pH 7.29 L VBG pCO2 56.0 VBG HCO3 26.9 VBG Total CO2 28.6 H VBG O2 Sat (Calc) 98.8 H VBG Base Excess -0.7 L VBG Potassium 4.3 Sodium 138.0 Chloride 109.0 H Glucose 106 H Lactate 0.6 L FiO2 21.0 Venous Blood Potassium 4.3 Assessment & Plan (1) Substance abuse Assessment and Plan: admits to using heroine daily possible w/d seizure admit and observe over night Status: Acute Priority: High Decision To Admit - Pt Status Changed To: Hospital Disposition Of: Observation - . Bed Request Type: Med/Surg <Jn Lopez - Last Filed: 11/08/17 15:48> Results - Vital Signs Recent Vital Signs: Last Vital Signs Temp 99.0 F 11/08/17 12:13 Pulse 80 11/08/17 15:16 Resp 19 11/08/17 15:16 BP 99/51 L 11/08/17 15:14 Pulse Ox 99 11/08/17 15:16 - Labs Result Diagrams: 11/08/17 13:26 11/08/17 13:26 Labs: Laboratory Results - last 24 hr 11/08/17 11/08/17 11/08/17 13:26 13:26 14:27 WBC 5.4 RBC 4.47 Hgb 13.2 Hct 39.5 MCV 88.4 MCH 29.5 MCHC 33.4 RDW 14.1 Plt Count 262 MPV 10.1 Gran % 65.9 Lymph % (Auto) 24.5 [place] % (Auto) 7.7 H Eos % (Auto) 1.7 Baso % (Auto) 0.2 Gran # 3.58 Lymph # (Auto) 1.3 [place] # (Auto) 0.4 Eos # (Auto) 0.1 Baso # (Auto) 0.01 pO2 102 H VBG pH 7.29 L VBG pCO2 56.0 VBG HCO3 26.9 VBG Total CO2 28.6 H VBG O2 Sat (Calc) 98.8 H VBG Base Excess -0.7 L VBG Potassium 4.3 Glucose 106 H Lactate 0.6 L FiO2 21.0 Sodium 142 138.0 Potassium 4.6 Chloride 107 109.0 H Carbon Dioxide 25 Anion Gap 15 BUN 16 Creatinine 0.7 Est GFR ( Amer) > 60 Est GFR (Non-Af Amer) > 60 Random Glucose 110 Calcium 9.2 Magnesium 2.1 Total Bilirubin 0.1 L AST 26 ALT 31 Alkaline Phosphatase 73 Lactate Dehydrogenase 502 Total Creatine Kinase 74 Troponin I < 0.01 Total Protein 7.1 Albumin 4.2 Globulin 2.9 Albumin/Globulin Ratio 1.5 Venous Blood Potassium 4.3 Attending/Attestation - Attestation I have personally seen and examined this patient.: Yes I have fully participated in the care of the patient.: Yes I have reviewed all pertinent clinical information: Yes Notes (Text): 11/08/17 15:46 Medical record note made by the resident after discussion with my direction and input after the patient was personally seen and examined by me. I have reviewed the chart and agree that the record accurately reflects by personal performance of the history, physical exam, data review, and medical decision-making, in the course for the patient. I have also personally directed the plan of care. 61 yo female with past medical history of substance abuse (Heroin), COPD, depression, and dyslipidemia admitted with questionable seizure .Patient is alert,awake and oriented, .There is no focal deficit.There is no sign of opoid withdrawal at this time.Patient does not want to stay in the hospital.The need of stay in the hospital was discussed in detail but patient has signed AMA. Prognosis is guarded.
[2017-11-08 15:18] VITALS: BP 99/51; PULSE 80; RESP 19; O2SAT 99
--- NOTE | 2017-11-08 18:52 | CARD ---
APPROVED REPORT EKG Measurement Heart [id number] <Conclusion> Sinus tachycardia Nonspecific ST abnormality Abnormal ECG
== END 2017-11-08 15:17 | disposition left against medical advice (07) ==
LOC: ED 11:38 → ERH 14:06 → UNDOADMOB 14:06 → ERH 15:03
DX: F19.10 Other psychoactive substance abuse, uncomplicated (principal); R56.9 Unspecified convulsions; I10 Essential (primary) hypertension; E11.9 Type 2 diabetes mellitus without complications; D64.9 Anemia, unspecified; F17.210 Nicotine dependence, cigarettes, uncomplicated

== ENCOUNTER 2017-11-20 10:35 | Inpatient (IN) | payer MEDICAID ==
[2017-11-20 10:36] VITALS: BMI 23.8
--- NOTE | 2017-11-20 10:45 | EDPD ---
HPI Stroke - General Time Seen by Provider: 11/20/17 10:38 Chief Complaint: Altered Mental Status Historian: EMS - History of Present Illness Narrative History of Present Illness (Free Text): 11/20/17 10:43 Patient is a 62 year old female, with past medical history of substance abuse ( Heroin), COPD, depression, and dyslipidemia, presents to the emergency department via EMS after being found to "collapse at [facility]"l. As per EMS, patient was witnessed by a bystander to collapse suddenly in [facility] approximately half an hour prior to arrival. Upon EMS arrival, patient was found responsive however was not answering questions appropriately. Patient was noted on initial assessment by EMS to be short of breath and not communicating, they also noted that her "arms were contorting". Onset:: Hours Timing: Currently Symptomatic Context: Other (collapsed inside of [facility]) Associated Symptoms: Tremors Exacerbated by: Nothing Relieved by: Nothing - Location Locate Right: Upper extremity Locate Left: Upper extremity - Pain Assessment/Levels Maximum Severity: None Severity Current: None rTPA Inclusion/Exclusion - Refusal of Treatment Patient Refused Treatment: Yes - Warning to TPA With Conditions Condition: Rapid Improvement Past Medical History - Provider Review Nursing Documentation Reviewed: Yes - Past History Past History: No Previous - Infectious Disease Hx of Infectious Diseases: None - Tetanus Immunization Tetanus Immunization: Unknown - Cardiac Hx Cardiac Disorders: Yes Hx Hypertension: Yes - Pulmonary Hx Respiratory Disorders: Yes Hx Bronchitis: Yes Hx Chronic Obstructive Pulmonary Disease (COPD): Yes Hx Emphysema: Yes Hx Pneumonia: Yes Hx Respiratory Tract Infection: Yes - Neurological Hx Neurological Disorder: Yes Hx Dizziness: Yes Hx Migraine: Yes - HEENT Hx HEENT Disorder: Yes (blurred vision) Hx Epistaxis: Yes - Renal Hx Renal Disorder: No - Endocrine/Metabolic Hx Endocrine Disorders: Yes Hx Diabetes Mellitus Type 2: Yes (hx of) Hx Hyperthyroidism: Yes - Hematological/Oncological Hx Blood Disorders: Yes Hx Anemia: Yes - Integumentary Hx Dermatological Disorder: No - Musculoskeletal/Rheumatological Hx Musculoskeletal Disorders: No Hx Falls: No - Gastrointestinal Hx Gastrointestinal Disorders: No - Genitourinary/Gynecological Hx Genitourinary Disorders: Yes Hx Urinary Tract Infection: Yes - Psychiatric Hx Psychophysiologic Disorder: Yes Hx Anxiety: Yes Hx Bipolar Disorder: Yes Hx Depression: Yes Hx Hallucinations: Yes Hx Panic Disorder: Yes Hx Post Traumatic Stress Disorder: Yes Hx Substance Use: Yes - Surgical History Hx Amputation: No Hx Appendectomy: No Hx Cholecystectomy: No Hx Gastric Bypass Surgery: No Hx Hysterectomy: No Hx Joint Replacement: No Hx Kidney Transplant: No Hx Liver Transplant: No Hx Mastectomy: No Hx Musculoskeletal Surgery: No Hx Open Heart Surgery: No Hx Orthopedic Surgery: No Hx Splenectomy: No Hx Valve Replacement: No - Anesthesia Hx Anesthesia: Yes Hx Anesthesia Reactions: No Hx Malignant Hyperthermia: No Family/Social History - Family/Social History Family History: Non-Contributory Allergies/Home Meds Allergies/Adverse Reactions: Allergies Penicillins Allergy (Verified 11/08/17 11:53) RASH sulfur Allergy (Uncoded 10/09/17 14:39) RASH Home Medications: Home Meds Medication Instructions Recorded Confirmed ARIPiprazole [Abilify] 5 mg PO DAILY 10/09/17 10/09/17 Atorvastatin [Lipitor] 20 mg PO DAILY 10/09/17 10/09/17 Cholecalciferol [Vitamin D 1000 IU] 1,000 iu PO DAILY 10/09/17 10/09/17 Fluticasone/Vilanterol [Breo 1 puff INH BID 10/09/17 10/09/17 Ellipta 100-25 Mcg INH] Mirtazapine [Remeron] 30 mg PO DAILY 10/09/17 10/09/17 Ropinirole HCl [Requip] 5 mg PO HS 10/09/17 10/09/17 Vitamin B Complex [Balance B-100] 1 tab PO DAILY 10/09/17 10/09/17 busPIRone [Buspar] 7.5 mg PO DAILY 10/09/17 10/09/17 hydrOXYzine HCl [Atarax] 50 mg PO DAILY 10/09/17 10/09/17 Review of Systems - Review of Systems Systems not reviewed;Unavailable: Other (Limited Response due to acute neurological changes) Constitutional: absent: Fevers Respiratory: SOB Gastrointestinal: absent: Vomiting Neurological: Speech Changes Psychiatric: absent: Suicidal Ideation ED Stroke Physical Exam - Physical Exam Narrative Physical Exam (Text): 11/20/17 10:43 Head: Atraumatic. Normocephalic. Eyes: Pupils pinpoint minimally reactive. No injection. ENT: Mucous membranes are dry. Oropharynx is clear and symmetric. Poor dentition. Neck: Supple. Full ROM. No JVD. No lymphadenopathy. Cardiovascular: Tachycardic. Systolic murmur. Pulmonary/Chest: Tachypneic. Bilateral expiratory wheezing. Abdominal: Soft and non-distended. There is no tenderness. No rebound, guarding, or rigidity. No organomegaly. Good bowel sounds. Back: No CVA tenderness. Rectal: no gross bleeding or melena Extremities: No edema. No cyanosis. No clubbing. No calf tenderness. Skin: Skin is warm and dry. No petechiae. No purpura. Possible bedbug noted. No cellulitis. Neurological: Lethargic. Will open eyes to verbal stimuli. Bilateral hands are contracted, but patient able to answer "yes" to certain questions and is noted to move all four extremities purposefully on initial examination. Psychiatric: Poor eye contact. Vital Signs Reviewed: Yes Temperature: Afebrile Blood Pressure: Hypertensive Pulse: Tachycardic Respiratory Rate: Normal Pain Distress: None Mental Status: Positive for: other (Limited response) Medical Decision Making ED Course and Treatment: 11/20/17 10:44 Impression: 62 year old female presents to the emergency department after "collapsing" at [facility]. Differential Diagnosis included but are not limited to: CVA vs. Overdose vs. seizure vs copd Plan: -- CT of Head -- Chest X-ray -- Labs -- Reassess and disposition Prior Visits: Notes and results from previous visits were reviewed. Progress Notes: 11/20/17 10:43 On initial exam, patient responds to voice, opens her eyes although contraction is noted on both her hand along with pinpoint pupils. CODE STROKE WAS CALLED based on acute neurological changes as reported. History obtained from EMS. Individuals who reportedly witnessed collapse are not present or available. Review of patient's past visits reveal prior hx of COPD, opiate abuse, which was considered on initial differential diagnosis. 11/20/17 10:[address] Rodriguez for CODE STROKE and case reviewed. 11/20/17 11:24 CT of head reviewed by radiologist, shows: FINDINGS: HEMORRHAGE: No intracranial hemorrhage. BRAIN: No mass effect or edema. Chronic microvascular changes are seen in the basal ganglia. VENTRICLES: Unremarkable. No hydrocephalus. CALVARIUM: Unremarkable. PARANASAL SINUSES: Unremarkable as visualized. No significant inflammatory changes. MASTOID AIR CELLS: Unremarkable as visualized. No inflammatory changes. OTHER FINDINGS: None. IMPRESSION: No acute intracranial findings 11/20/17 12:46 Chest X-ray reviewed by radiologist, shows: FINDINGS: LUNGS: No consolidation. Interstitial lung markings appear diffusely and bilaterally mildly increased and this is not significantly changed. No interval consolidation appreciated. PLEURA: No significant pleural effusion identified, no pneumothorax apparent. CARDIOVASCULAR: Normal. OSSEOUS STRUCTURES: No significant abnormalities. VISUALIZED UPPER ABDOMEN: Normal. OTHER FINDINGS: None. IMPRESSION: No consolidation Overall interstitial lung markings - appear diffusely and bilaterally mildly increased - no definite change regarding this appearance noted. No interval pathology appreciated Patient is againg noted to have contractions at both hands, but she is speaking with these movements and will respond to voice and follow some commands. She is noted to have diffuse wheezing and hypoxia. Nebulizers and steroids initiated. ABG reveals acidosis. As persistent lethargy associated with hypoxia, Narcan administered for potential overdose. Patient given Narcan and there is immediate improvement in patient's alertness, she is now answering questions and admits to using heroin after administration. She moves all extremities well with no focal deficits. Patient is breathing more comfortably after nebulizers. I suspect that initial presentation, given improvement with Narcan, likely related to opiate use and not cva, given rapid improvement patient is NOT a tpa candidate. ICU consulted, Dr. Espinoza evaluated patient in ED. Cleared currently for telemetry as PH improved and she is alert, conversive, and breathing more comfortably. - Critical Care Critical Care Minutes: 60 minutes - RAD Interpretation Verification Lead: Radiologist - EKG Interpretation EKG Interpretation (Text): EKG at 1046 sinus tachycardia rate of 123 Interpreted by ED Physician: Yes Type: 12 lead EKG NIHSS Scale([place]) 2 Time Performed: 12:00 - How Severe is the Stoke Baseline Level of Consciousness: 0=Alert LOC to Questions: 0=Both comments correct LOC to commands: 0=Obeys both correctly Best Gaze: 0=Normal Visual: 0=No visual loss Facial: 0=Normal Motor Arm - Left: 0=No drift Motor Arm - Right: 0=No drift Motor Leg - Left: 0=No drift Motor Leg - Right: 0=No drift Limb Ataxia: 0=Absent Sensory: 0=Normal Best Language: 0=No aphasia Dysarthia: 0=Normal articulation Extinction & Inattention (Neglect): 0=Normal, no object Score: 0 Risk Level: No Stroke Risk - Scribe Statement The provider has reviewed the documentation as recorded by the Marye Hue Newsome. All medical record entries made by the Scribe were at my direction and personally dictated by me. I have reviewed the chart and agree that the record accurately reflects my personal performance of the history, physical exam, medical decision making, and the department course for this patient. I have also personally directed, reviewed, and agree with the discharge instructions and disposition. NIHSS Scale ([place]) Time Performed: 10:50 - How Severe is the Stoke Baseline Level of Consciousness: 1=Drowsy LOC to Questions: 1=One correct LOC to commands: 1=Obeys one correctly Best Gaze: 0=Normal Visual: 0=No visual loss Facial: 0=Normal Motor Arm - Left: 1=Drift noted before 10 sec Motor Arm - Right: 1=Drift noted before 10 sec Motor Leg - Left: 1=Drift before 5 sec Motor Leg - Right: 1=Drift before 5 sec Limb Ataxia: 1=Present Upper or Lower Sensory: 0=Normal Best Language: 1=Mild to moderate aphasia Dysarthia: 1=Mild to moderate slurring Extinction & Inattention (Neglect): 0=Normal, no object Score: 10 Risk Level: Mod Stroke Risk Disposition/Present on Arrival - Present on Arrival Any Indicators Present on Arrival: No History of DVT/PE: No History of Uncontrolled Diabetes: No Urinary Catheter: No History of Decub. Ulcer: No History Surgical Site Infection Following: None - Disposition Have Diagnosis and Disposition been Completed?: Yes Diagnosis: COPD exacerbation, Opiate overdose, Altered mental status Disposition: HOSPITALIZED Disposition Time: 13:00 Patient Plan: Admission, Telemetry Patient Problems: Current Active Problems Problem Status Onset COPD exacerbation Acute Opiate overdose Acute Overdose Acute Toxic metabolic encephalopathy Acute Condition: CRITICAL
[2017-11-20 10:57] LABS: BASO # 0.02 K/mm3 (0.0-2.0); BASO % 0.2 % (0.0-3.0); EOS # 0.2 (0.0-0.7); EOS % 2.2 % (1.5-5.0); GRAN # 4.27 (1.4-6.5); GRAN % 53.3 % (50.0-68.0); HEMOGLOBIN 14.5 g/dL (12.0-16.0); LYMPH % 37.6 % (22.0-35.0); MEAN CELL VOLUME 88.6 fl (80.0-105.0); MEAN CORPUSCULAR HGB CONC 33.9 g/dl (31.0-37.0); MEAN PLATELET VOLUME 10.2 fl (7.0-11.0); MONO # 0.5 (0.1-0.6); MONO % 6.7 % (1.0-6.0); RBC 4.83 10^6/uL (3.5-6.1); RED CELL DISTRIBUTION WIDTH 13.9 % (11.5-14.5)
[2017-11-20] MEDS ORDERED: Albuterol-Ipratrop 3 mg / 0.5 (3 ml) UD IH STA (11:02)
[2017-11-20 11:03] LABS: ACETAMINOPHEN < 10.0 ug/ml (10.0-20.0); SALICYLATE < 1 mg/dL (2.0-20.0)
[2017-11-20 11:05] LABS: ALB/GLOB RATIO 1.5 (1.1-1.8); ALBUMIN 4.3 g/dL (3.0-4.8); ALT/SGPT 27 U/L (7-56); AST/SGOT 25 U/L (14-36); BLOOD UREA NITROGEN 17 mg/dL (7-21); CALCIUM 9.7 mg/dL (8.4-10.5); GFR AFRICAN-AMERICAN > 60; GFR NON-AFRICAN AMERICAN > 60
--- NOTE | 2017-11-20 11:18 | CT ---
PROCEDURE: CT HEAD WITHOUT CONTRAST. HISTORY: weakness COMPARISON: 11/07/2017 TECHNIQUE: Axial computed tomography images were obtained through the head/brain without intravenous contrast. Radiation dose: Total exam DLP = 839 mGy-cm. This CT exam was performed using one or more of the following dose reduction techniques: Automated exposure control, adjustment of the mA and/or kV according to patient size, and/or use of iterative reconstruction technique. FINDINGS: HEMORRHAGE: No intracranial hemorrhage. BRAIN: No mass effect or edema. Chronic microvascular changes are seen in the basal ganglia. VENTRICLES: Unremarkable. No hydrocephalus. CALVARIUM: Unremarkable. PARANASAL SINUSES: Unremarkable as visualized. No significant inflammatory changes. MASTOID AIR CELLS: Unremarkable as visualized. No inflammatory changes. OTHER FINDINGS: None. IMPRESSION: No acute intracranial findings
[2017-11-20 11:19] LABS: ARTERIAL BLOOD GAS HCO3 22.2 mmol/L (21-28); ARTERIAL BLOOD GAS O2 SAT 99.8 % (95-98); ARTERIAL BLOOD GAS PCO2 58 mm/Hg (35-45)
[2017-11-20 11:21] LABS: ARTERIAL BLOOD GAS PH 7.19 (7.35-7.45)
[2017-11-20] MEDS: Albuterol-Ipratrop 3 mg / 0.5 (3 ml) UD IH SCH ×3 (11:27→12:00)
[2017-11-20] MEDS ORDERED: Naloxone 0.4 mg/ml Inj (Adult) IVP STA (11:28)
[2017-11-20 11:34] LABS: HDL CHOLESTEROL 81 mg/dL (29-60)
[2017-11-20 11:41] LABS: URINE BILIRUBIN NEGATIVE (NEGATIVE); URINE BLOOD NEGATIVE (NEGATIVE); URINE GLUCOSE (UA) NEGATIVE (NEGATIVE); URINE LEUKOCYTE ESTERASE NEGATIVE Leu/uL (NEGATIVE); URINE PROTEIN 30 mg/dL (<30 mg/dL); URINE UROBILINOGEN 0.2 E.U./dL (<1 E.U./dL)
[2017-11-20 11:44] LABS: LDL CHOLESTEROL 58 mg/dL (0-129)
[2017-11-20 11:47] LABS: URINE APPEARANCE CLEAR (CLEAR); URINE COLOR YELLOW (YELLOW)
[2017-11-20 11:48] LABS: TROPONIN I < 0.01 ng/mL
[2017-11-20 12:06] LABS: URINE RBC 0 - 2 /hpf (0-2); URINE WBC 0 - 2 /hpf (0-6)
[2017-11-20 12:07] LABS: URINE AMORPHOUS SEDIMENT FEW; URINE BACTERIA LARGE (NEG); URINE COARSE GRANULAR CAST TRACE /hpf (0-2)
[2017-11-20 12:15] LABS: BARBITURATES, UR NEGATIVE (NEGATIVE); BENZODIAZEPINES, UR NEGATIVE (NEGATIVE); OPIATES, UR POSITIVE (NEGATIVE); PHENCYCLIDINE, UR NEGATIVE (NEGATIVE)
[2017-11-20 12:36] LABS: HCG,QUALITATIVE URINE NEGATIVE (NEGATIVE)
--- NOTE | 2017-11-20 12:40 | RAD ---
HISTORY: unresponsive COMPARISON: 11/07/2017 FINDINGS: LUNGS: No consolidation. Interstitial lung markings appear diffusely and bilaterally mildly increased and this is not significantly changed. No interval consolidation appreciated. PLEURA: No significant pleural effusion identified, no pneumothorax apparent. CARDIOVASCULAR: Normal. OSSEOUS STRUCTURES: No significant abnormalities. VISUALIZED UPPER ABDOMEN: Normal. OTHER FINDINGS: None. IMPRESSION: No consolidation Overall interstitial lung markings - appear diffusely and bilaterally mildly increased - no definite change regarding this appearance noted. No interval pathology appreciated
[2017-11-20] MEDS ORDERED: Albuterol-Ipratrop 3 mg / 0.5 (3 ml) UD IH PRN (12:52)
[2017-11-20 13:06] LABS: ARTERIAL BLOOD GAS O2 SAT 99.7 % (95-98); ARTERIAL BLOOD GAS PCO2 49 mm/Hg (35-45); ARTERIAL BLOOD GAS PH 7.24 (7.35-7.45); ARTERIAL BLOOD GAS TCO2 22.5 mmol.L (22-28)
--- NOTE | 2017-11-20 13:50 | CP.PCM.CON ---
History of Present Illness - History of Present Illness History of Present Illness: Mrs. Martinez is a 62-year-old woman with a past medical history of multi- substance abuse, who had a syncopal episode and was obtunded afterward. She was brought to the ED and was having some notable myoclonic jerks. After Narcan , she woke up and had no focal neurological deficits, speech was fluent, although she remained somewhat confused. CT scan of the head was normal. Review of Systems - Review of Systems All systems: reviewed and no additional remarkable complaints except Past Patient History - Infectious Disease Hx of Infectious Diseases: None - Tetanus Immunizations Tetanus Immunization: Unknown - Past Social History Smoking Status: Light Smoker < 10 Cigarettes Daily - CARDIAC Hx Cardiac Disorders: Yes Hx Hypertension: Yes - PULMONARY Hx Respiratory Disorders: Yes Hx Bronchitis: Yes Hx Chronic Obstructive Pulmonary Disease (COPD): Yes Hx Emphysema: Yes Hx Pneumonia: Yes Hx Respiratory Tract Infection: Yes - NEUROLOGICAL Hx Neurological Disorder: Yes Hx Dizziness: Yes Hx Migraine: Yes - HEENT Hx HEENT Problems: Yes (blurred vision) Hx Epistaxis: Yes - RENAL Hx Chronic Kidney Disease: No - ENDOCRINE/METABOLIC Hx Endocrine Disorders: Yes Hx Diabetes Mellitus Type 2: Yes (hx of) Hx Hyperthyroidism: Yes - HEMATOLOGICAL/ONCOLOGICAL Hx Blood Disorders: Yes Hx Anemia: Yes - INTEGUMENTARY Hx Dermatological Problems: No - MUSCULOSKELETAL/RHEUMATOLOGICAL Hx Musculoskeletal Disorders: No Hx Falls: No - GASTROINTESTINAL Hx Gastrointestinal Disorders: No - GENITOURINARY/GYNECOLOGICAL Hx Genitourinary Disorders: Yes Hx Urinary Tract Infection: Yes - PSYCHIATRIC Hx Psychophysiologic Disorder: Yes Hx Anxiety: Yes Hx Bipolar Disorder: Yes Hx Depression: Yes Hx Hallucinations: Yes Hx Panic Symptoms: Yes Hx Post Traumatic Stress Disorder: Yes Hx Substance Use: Yes - SURGICAL HISTORY Hx Amputation: No Hx Appendectomy: No Hx Cholecystectomy: No Hx Gastric Bypass Surgery: No Hx Hysterectomy: No Hx Joint Replacement: No Hx Kidney Transplant: No Hx Liver Transplant: No Hx Mastectomy: No Hx Musculoskeletal Surgery: No Hx Open Heart Surgery: No Hx Orthopedic Surgery: No Hx Splenectomy: No Hx Valve Replacement: No - ANESTHESIA Hx Anesthesia: Yes Hx Anesthesia Reactions: No Hx Malignant Hyperthermia: No Meds Allergies/Adverse Reactions: Allergies Allergy/AdvReac Type Severity Reaction Status Date / Time Penicillins Allergy RASH Verified 11/08/17 11:53 sulfur Allergy RASH Uncoded 10/09/17 14:39 - Medications Medications: Current Medications Albuterol/Ipratropium (Duoneb 3 Mg/0.5 Mg (3 Ml) Ud) 3 ml IH Q4H PRN PRN Reason: Shortness of Breath Arformoterol Tartrate (Brovana) 15 mcg IH [id number] COCO Budesonide (Pulmicort Respules) 0.5 mg IH Q12H COCO Heparin Sodium (Porcine) (Heparin) 5,000 units SC Q12H COCO Pantoprazole Sodium (Protonix Inj) 40 mg IVP DAILY COCO Physical Exam - Neurological Exam Neurological exam: Alert, CN II-XII Intact, Oriented x3, Reflexes Normal Additional comments: NIHSS = 0 Results - Vital Signs Recent Vital Signs: Last Vital Signs Temp Pulse 98 H 11/20/17 12:03 Resp 16 11/20/17 12:03 BP 125/84 11/20/17 12:03 Pulse Ox 99 11/20/17 12:03 - Labs Result Diagrams: 11/20/17 10:40 11/20/17 10:40 Assessment & Plan (1) Overdose Assessment and Plan: Continue conservative management. [employer] on rehab. warm in worker consult. Status: Acute (2) Toxic metabolic encephalopathy Assessment and Plan: Treat underlying toxic conditions. No further neurological recommendations at this time. Thank you. Status: Acute
[2017-11-20] MEDS: Budesonide 0.5 mg/2 ml Inhal Susp UD IH SCH ×2 (14:10→19:57)
--- NOTE | 2017-11-20 15:35 | CON ---
DATE: 11/20/2017 HISTORY OF PRESENT ILLNESS: The patient is seen and examined at bedside. She is a 62-year-old lady with history of COPD, questionable CHF and chronic opiate abuse, who came to the [facility] ER where initially found to be poorly responsive with some muscle twitching (?myoclonus). However, shortly after she woke up without any recollection of this event. She is alert, awake and oriented x3. She is very comfortable and protecting her airways. She does not deny that she was doing heroin. No nausea, no vomiting, no diarrhea, no constipation, no chest pain and no shortness of breath. She was found to have acute respiratory acidosis and was treated with bronchodilators. Repeated ABG is pending. PAST MEDICAL HISTORY: COPD, heroin overdose, questionable CHF. to be cont'd Colt Espinoza MD [facility]
--- NOTE | 2017-11-20 16:27 | CP.PCM.HP ---
<Nate Littlejohn - Last Filed: 11/20/17 16:37> History of Present Illness - History of Present Illness History of Present Illness: Patient is a 62 year old female with a PMH of COPD and heroin abuse who comes to the ED brought in by ems after being found obtunded on the street. She states the last this morning she did 6 bags of heroine. She states normally she spaces those out throughout the day, however today she decided to take all of them at once. She reports smoking heroine and denies use through intravenous access. She reports taking heroin everyday. She lives with her sister and she became very anxious at the thought of her sister finding out she does heroine. She denies any chest pain, shortness of breath, feverss, chills, abdominal pain , dizziness, syncopal episodes, or any other complaints. 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 Previous boyfriend introduced her to heroine. 2 sisters in quick succession recently. Boyfriend also . Smokes 1ppd for over 50 years. Former drinker. Snorts heroine. Never IV All: Sulfur Medications: Unknown. Goes to [email or web address] in [place]. Made call and no record of patient. Will try and confirm tomorrow. Present on Admission - Present on Admission Any Indicators Present on Admission: No Review of Systems - Constitutional Constitutional: absent: Daytime Sleepiness, Headache, Snoring - EENT Eyes: absent: Discharge, Loss of Vision Ears: absent: Ear Discharge, Dizziness Nose/Mouth/Throat: absent: Nasal Trauma, Nose Pain, Bleeding Gums, Mouth Pain, Odynophagia - Cardiovascular Cardiovascular: absent: Chest Pain, Claudication, Irregular Heart Rhythm, Leg Edema, Palpitations, Pedal Edema, Syncope - Respiratory Respiratory: absent: Dyspnea, Hemoptysis, Stridor, Change in Mucous Color - Gastrointestinal Gastrointestinal: absent: Belching, Change in Stool Character, Dyspepsia, Fecal Incontinence, Heartburn, Hematochezia, Melena, Nausea, Vomiting - Musculoskeletal Musculoskeletal: absent: Arthralgias, Limited Range of Motion - Integumentary Integumentary: absent: Bleeding Lesions, Changing Lesions, New Lesions, Pruritus , Striae, Swelling - Neurological Neurological: absent: Dizziness, Numbness, Focal Weakness - Psychiatric Psychiatric: absent: Hopelessness, Panic Attacks, Tactile Hallucinations - Endocrine Endocrine: absent: Polydipsia, Polyphagia, Polyuria - Hematologic/Lymphatic Hematologic: absent: Easy Bleeding, Easy Bruising Past Patient History - Infectious Disease Hx of Infectious Diseases: None - Tetanus Immunizations Tetanus Immunization: Unknown - Past Social History Smoking Status: Light Smoker < 10 Cigarettes Daily - CARDIAC Hx Cardiac Disorders: Yes Hx Hypertension: Yes - PULMONARY Hx Respiratory Disorders: Yes Hx Bronchitis: Yes Hx Chronic Obstructive Pulmonary Disease (COPD): Yes Hx Emphysema: Yes Hx Pneumonia: Yes Hx Respiratory Tract Infection: Yes - NEUROLOGICAL Hx Neurological Disorder: Yes Hx Dizziness: Yes Hx Migraine: Yes - HEENT Hx HEENT Problems: Yes (blurred vision) Hx Epistaxis: Yes - RENAL Hx Chronic Kidney Disease: No - ENDOCRINE/METABOLIC Hx Endocrine Disorders: Yes Hx Diabetes Mellitus Type 2: Yes (hx of) Hx Hyperthyroidism: Yes - HEMATOLOGICAL/ONCOLOGICAL Hx Blood Disorders: Yes Hx Anemia: Yes - INTEGUMENTARY Hx Dermatological Problems: No - MUSCULOSKELETAL/RHEUMATOLOGICAL Hx Musculoskeletal Disorders: No Hx Falls: No - GASTROINTESTINAL Hx Gastrointestinal Disorders: No - GENITOURINARY/GYNECOLOGICAL Hx Genitourinary Disorders: Yes Hx Urinary Tract Infection: Yes - PSYCHIATRIC Hx Psychophysiologic Disorder: Yes Hx Anxiety: Yes Hx Bipolar Disorder: Yes Hx Depression: Yes Hx Hallucinations: Yes Hx Panic Symptoms: Yes Hx Post Traumatic Stress Disorder: Yes Hx Substance Use: Yes - SURGICAL HISTORY Hx Amputation: No Hx Appendectomy: No Hx Cholecystectomy: No Hx Gastric Bypass Surgery: No Hx Hysterectomy: No Hx Joint Replacement: No Hx Kidney Transplant: No Hx Liver Transplant: No Hx Mastectomy: No Hx Musculoskeletal Surgery: No Hx Open Heart Surgery: No Hx Orthopedic Surgery: No Hx Splenectomy: No Hx Valve Replacement: No - ANESTHESIA Hx Anesthesia: Yes Hx Anesthesia Reactions: No Hx Malignant Hyperthermia: No Meds Allergies/Adverse Reactions: Allergies Allergy/AdvReac Type Severity Reaction Status Date / Time Penicillins Allergy RASH Verified 11/20/17 21:52 sulfur Allergy RASH Uncoded 11/20/17 21:52 Physical Exam - Head Exam Head Exam: ATRAUMATIC, NORMAL INSPECTION, NORMOCEPHALIC - Eye Exam Eye Exam: EOMI, Normal appearance, PERRL Pupil Exam: NORMAL ACCOMODATION, PERRL. absent: Irregular, Unequal - ENT Exam ENT Exam: Mucous Membranes Moist, Normal Oropharynx - Respiratory Exam Respiratory Exam: Clear to Auscultation Bilateral, NORMAL BREATHING PATTERN. absent: Chest Wall Tenderness, Prolonged Expiratory Phase, Respiratory Distress - Cardiovascular Exam Cardiovascular Exam: REGULAR RHYTHM, +S1, +S2 - GI/Abdominal Exam GI & Abdominal Exam: Normal Bowel Sounds, Soft. absent: Tenderness - Extremities Exam Extremities exam: Positive for: normal inspection. Negative for: full ROM, joint swelling, pedal edema - Back Exam Back exam: NORMAL INSPECTION. absent: CVA tenderness (L), CVA tenderness (R), paraspinal tenderness - Neurological Exam Neurological exam: Alert, CN II-XII Intact, Normal Gait, Oriented x3 - Psychiatric Exam Psychiatric exam: Normal Affect, Normal Mood - Skin Skin Exam: Dry, Intact Results - Vital Signs Recent Vital Signs: Last Vital Signs Temp Pulse 105 H 11/20/17 15:00 Resp 16 11/20/17 15:00 BP 126/85 11/20/17 15:00 Pulse Ox 98 11/20/17 15:00 - Labs Result Diagrams: 11/20/17 10:40 11/20/17 10:40 Assessment & Plan - Assessment and Plan (Free Text) Assessment: 62 year old female with a past medical history of COPD and heroin abuse comes in for heroin overdose. Plan: 1.Heroin overdose -Given Narcan in the field. Code stroke called in E.D. -Urine opiates positive upon admission. -Chest xray: intersitial lung markings appear diffuse and bilaterally mildly increased -IV fluids @ 75cc/hr -Methadone 10gm PO TID PRN for withdrawal symptoms. -ICU consulted. Help appreciated -Neurology consulted. Help appreciated -Placed on BiPAP in the E.D. Continue vent settings. Will monitor. 2.COPD -Will verify home medications and restart home medications. -Brovana, Pulmicort and Duonebs started. PPX -Protonix -Heparin. <Marquez Duggan - Last Filed: 11/21/17 16:23> Results - Vital Signs Recent Vital Signs: Last Vital Signs Temp 98 F 11/21/17 12:00 Pulse 65 11/21/17 12:00 Resp 18 11/21/17 12:00 BP 124/80 11/21/17 12:00 Pulse Ox 97 11/21/17 06:00 - Labs Result Diagrams: 11/21/17 07:30 11/21/17 07:30 Labs: Laboratory Results - last 24 hr 11/21/17 11/21/17 11/21/17 07:15 07:30 07:30 WBC 9.4 RBC 4.35 Hgb 12.6 Hct 38.5 MCV 88.5 MCH 29.0 MCHC 32.7 RDW 14.0 Plt Count 249 MPV 9.7 Gran % 70.5 H Lymph % (Auto) 20.9 L Beaver % (Auto) 8.1 H Eos % (Auto) 0.4 L Baso % (Auto) 0.1 Gran # 6.63 H Lymph # (Auto) 2.0 Beaver # (Auto) 0.8 H Eos # (Auto) 0.0 Baso # (Auto) 0.01 Sodium 138 Potassium 4.2 Chloride 104 Carbon Dioxide 24 Anion Gap 14 BUN 16 Creatinine 0.6 L Est GFR ( Amer) > 60 Est GFR (Non-Af Amer) > 60 POC Glucose (mg/dL) 94 Random Glucose 92 Calcium 9.2 11/21/17 11:34 WBC RBC Hgb Hct MCV MCH MCHC RDW Plt Count MPV Gran % Lymph % (Auto) Beaver % (Auto) Eos % (Auto) Baso % (Auto) Gran # Lymph # (Auto) Beaver # (Auto) Eos # (Auto) Baso # (Auto) Sodium Potassium Chloride Carbon Dioxide Anion Gap BUN Creatinine Est GFR ( Amer) Est GFR (Non-Af Amer) POC Glucose (mg/dL) 91 Random Glucose Calcium Attending/Attestation - Attestation I have personally seen and examined this patient.: Yes I have fully participated in the care of the patient.: Yes I have reviewed all pertinent clinical information: Yes Notes (Text): 11/21/17 16:20 Attending note; Patient seen and examined with resident in ER. Patient is a 62 year old female with PMH of COPD and heroin abuse is admitted for lethargy after heroin abuse. Patient has multiple admission for the same problem. Patient was given Narcan. Currently on BiPAP. Pulmonary evaluation appreciated. Lethargy; secondary to drug abuse. CT head is negative. Court Stroke called. Neurology evaluation requested. Patient is currently alert and awake. Requesting us not to talk to her sister about her drug problem. Complete drug abuse cessation is strongly advised. Anxiety depression; continue home medication. Patient will be admitted to telemetry for monitoring. Upon discharge the patient will follow-up with PMD of choice. Prognosis is poor secondary to continuous drug abuse. 11/21/17 16:22
--- NOTE | 2017-11-20 16:41 | CARD ---
APPROVED REPORT EKG Measurement Heart [id number] <Conclusion> Sinus tachycardia Biatrial enlargement Nonspecific ST abnormality Abnormal ECG
[2017-11-20] MEDS: Arformoterol 15 mcg/2 ml Inh Sol IH SCH (19:56)
[2017-11-20] MEDS ORDERED: Pneumococcal 23-Valent Vaccine IM ONE (22:19)
[2017-11-21 00:28] VITALS: O2SAT 97
[2017-11-21] MEDS ORDERED: Sodium Chloride 0.45% 1,000 ML IV SCH (07:15)
[2017-11-21] MEDS ORDERED: Multivitamin Vitamin B Complex (Nephro-Vite) Tab PO SCH (08:00)
[2017-11-21 08:05] LABS: BASO # 0.01 K/mm3 (0.0-2.0); BASO % 0.1 % (0.0-3.0); EOS % 0.4 % (1.5-5.0); GRAN # 6.63 (1.4-6.5); GRAN % 70.5 % (50.0-68.0); HEMOGLOBIN 12.6 g/dL (12.0-16.0); LYMPH % 20.9 % (22.0-35.0); MEAN CELL VOLUME 88.5 fl (80.0-105.0); MEAN CORPUSCULAR HGB CONC 32.7 g/dl (31.0-37.0); MEAN PLATELET VOLUME 9.7 fl (7.0-11.0); MONO # 0.8 (0.1-0.6); MONO % 8.1 % (1.0-6.0); RBC 4.35 10^6/uL (3.5-6.1); WHITE BLOOD COUNT 9.4 10^3/ul (4.5-11.0)
[2017-11-21 08:17] LABS: BLOOD UREA NITROGEN 16 mg/dL (7-21); CALCIUM 9.2 mg/dL (8.4-10.5); GFR AFRICAN-AMERICAN > 60; GFR NON-AFRICAN AMERICAN > 60
[2017-11-21] MEDS: Arformoterol 15 mcg/2 ml Inh Sol IH SCH (08:22)
[2017-11-21] MEDS: Budesonide 0.5 mg/2 ml Inhal Susp UD IH SCH (08:29)
[2017-11-21] MEDS ORDERED: Cholecalciferol 1,000 INTLU TAB PO SCH (10:00)
[2017-11-21] MEDS ORDERED: Albuterol 0.083% Inhal Sol (2.5 mg/3 mL) UD IH PRN ×2 (13:02→13:10)
--- NOTE | 2017-11-21 13:19 | CP.PCM.DIS ---
<Nate Littlejohn - Last Filed: 11/21/17 13:23> Provider - Provider Date of Admission: 11/20/17 13:34 Attending physician: Marquez Duggan MD Time Spent in preparation of Discharge (in minutes): 45 Hospital Course - Lab Results Lab Results: Most Recent Lab Values WBC 9.4 10^3/ul (4.5-11.0) 11/21/17 07:30 RBC 4.35 10^6/uL (3.5-6.1) 11/21/17 07:30 Hgb 12.6 g/dL (12.0-16.0) 11/21/17 07:30 Hct 38.5 % (36.0-48.0) 11/21/17 07:30 MCV 88.5 fl (80.0-105.0) 11/21/17 07:30 MCH 29.0 pg (25.0-35.0) 11/21/17 07:30 MCHC 32.7 g/dl (31.0-37.0) 11/21/17 07:30 RDW 14.0 % (11.5-14.5) 11/21/17 07:30 Plt Count 249 10^3/uL (120.0-450.0) 11/21/17 07:30 MPV 9.7 fl (7.0-11.0) 11/21/17 07:30 Gran % 70.5 % (50.0-68.0) H 11/21/17 07:30 Lymph % (Auto) 20.9 % (22.0-35.0) L 11/21/17 07:30 [place] % (Auto) 8.1 % (1.0-6.0) H 11/21/17 07:30 Eos % (Auto) 0.4 % (1.5-5.0) L 11/21/17 07:30 Baso % (Auto) 0.1 % (0.0-3.0) 11/21/17 07:30 Gran # 6.63 (1.4-6.5) H 11/21/17 07:30 Lymph # (Auto) 2.0 (1.2-3.4) 11/21/17 07:30 [place] # (Auto) 0.8 (0.1-0.6) H 11/21/17 07:30 Eos # (Auto) 0.0 (0.0-0.7) 11/21/17 07:30 Baso # (Auto) 0.01 K/mm3 (0.0-2.0) 11/21/17 07:30 pCO2 49 mm/Hg (35-45) H 11/20/17 12:55 pO2 120.0 mm/Hg (80-100) H 11/20/17 12:55 HCO3 21.0 mmol/L (21-28) 11/20/17 12:55 ABG pH 7.24 (7.35-7.45) L 11/20/17 12:55 ABG Total CO2 22.5 mmol.L (22-28) 11/20/17 12:55 ABG O2 Saturation 99.7 % (95-98) H 11/20/17 12:55 ABG Base Excess -6.6 mmol/L (-2.0-3.0) L 11/20/17 12:55 ABG Potassium 3.5 mmol/L (3.6-5.2) L 11/20/17 12:55 Sodium 141.0 mmol/L (132-148) 11/20/17 12:55 Chloride 113.0 mmol/L (98-107) H 11/20/17 12:55 Glucose 115 mg/dl (65-105) H 11/20/17 12:55 Lactate 0.5 mmol/L (0.7-2.1) L 11/20/17 12:55 FiO2 60.0 % 11/20/17 12:55 Sodium 138 mmol/L (132-148) 11/21/17 07:30 Potassium 4.2 mmol/L (3.6-5.0) 11/21/17 07:30 Chloride 104 mmol/L (98-107) 11/21/17 07:30 Carbon Dioxide 24 mmol/L (21-33) 11/21/17 07:30 Anion Gap 14 (10-20) 11/21/17 07:30 BUN 16 mg/dL (7-21) 11/21/17 07:30 Creatinine 0.6 mg/dl (0.7-1.2) L 11/21/17 07:30 Est GFR ( Amer) > 60 11/21/17 07:30 Est GFR (Non-Af Amer) > 60 11/21/17 07:30 POC Glucose (mg/dL) 91 mg/dL (65-110) 11/21/17 11:34 Random Glucose 92 mg/dL (70-110) 11/21/17 07:30 Hemoglobin A1c 5.8 % (4.2-6.5) 11/20/17 10:40 Calcium 9.2 mg/dL (8.4-10.5) 11/21/17 07:30 Magnesium 1.8 mg/dL (1.7-2.2) 11/20/17 10:40 Total Bilirubin 0.2 mg/dL (0.2-1.3) 11/20/17 10:40 AST 25 U/L (14-36) 11/20/17 10:40 ALT 27 U/L (7-56) 11/20/17 10:40 Alkaline Phosphatase 110 U/L (38-126) 11/20/17 10:40 Total Creatine Kinase 82 U/L (35-230) 11/20/17 10:40 Troponin I < 0.01 ng/mL 11/20/17 10:40 Total Protein 7.1 g/dL (5.8-8.3) 11/20/17 10:40 Albumin 4.3 g/dL (3.0-4.8) 11/20/17 10:40 Globulin 2.8 gm/dL 11/20/17 10:40 Albumin/Globulin Ratio 1.5 (1.1-1.8) 11/20/17 10:40 Triglycerides 93 mg/dL (35-160) 11/20/17 10:40 Cholesterol 149 mg/dL (130-200) 11/20/17 10:40 LDL Cholesterol Direct 58 mg/dL (0-129) 11/20/17 10:40 HDL Cholesterol 81 mg/dL (29-60) H 11/20/17 10:40 Arterial Blood Potassium 3.5 mmol/L (3.6-5.2) L 11/20/17 12:55 Urine Color Yellow (YELLOW) 11/20/17 11:30 Urine Appearance Clear (CLEAR) 11/20/17 11:30 Urine pH 6.0 (4.7-8.0) 11/20/17 11:30 Ur Specific [place] >= 1.030 (1.005-1.035) 11/20/17 11:30 Urine Protein 30 mg/dL (<30 mg/dL) H 11/20/17 11:30 Urine Glucose (UA) Negative mg/dL (NEGATIVE) 11/20/17 11:30 Urine Ketones Negative mg/dL (NEGATIVE) 11/20/17 11:30 Urine Blood Negative (NEGATIVE) 11/20/17 11:30 Urine Nitrate Negative (NEGATIVE) 11/20/17 11:30 Urine Bilirubin Negative (NEGATIVE) 11/20/17 11:30 Urine Urobilinogen 0.2 E.U./dL (<1 E.U./dL) 11/20/17 11:30 Ur Leukocyte Esterase Negative [place]/uL (NEGATIVE) 11/20/17 11:30 Urine RBC 0 - 2 /hpf (0-2) 11/20/17 11:30 Urine WBC 0 - 2 /hpf (0-6) 11/20/17 11:30 Ur Epithelial Cells 4 - 5 /hpf (0-5) 11/20/17 11:30 Amorphous Sediment Few 11/20/17 11:30 Urine Bacteria Large (NEG) 11/20/17 11:30 Coarse Granular Casts Trace /hpf (0-2) H 11/20/17 11:30 Urine Other Uyeast 11/20/17 11:30 Urine HCG, Qual Negative (NEGATIVE) 11/20/17 11:30 Salicylates < 1 mg/dL (2.0-20.0) L 11/20/17 10:40 Urine Opiates Screen Positive (NEGATIVE) H 11/20/17 11:30 Urine Methadone Screen Negative (NEGATIVE) 11/20/17 11:30 Acetaminophen < 10.0 ug/ml (10.0-20.0) L 11/20/17 10:40 Ur Barbiturates Screen Negative (NEGATIVE) 11/20/17 11:30 Ur Phencyclidine Scrn Negative (NEGATIVE) 11/20/17 11:30 Ur Amphetamines Screen Negative (NEGATIVE) 11/20/17 11:30 U Benzodiazepines Scrn Negative (NEGATIVE) 11/20/17 11:30 U Oth Cocaine Metabols Negative (NEGATIVE) 11/20/17 11:30 U Cannabinoids Screen Negative (NEGATIVE) 11/20/17 11:30 Alcohol, Quantitative < 10 mg/dL (0-10) 11/20/17 10:40 - Hospital Course Hospital Course: Patient is a 62 year old female with a PMH of COPD and heroin abuse who comes to the ED brought in by ems after being found obtunded on the street. She states the last this morning she did 6 bags of heroine. She states normally she spaces those out throughout the day, however today she decided to take all of them at once. She reports smoking heroine and denies use through intravenous access. She reports taking heroin everyday. She lives with her sister and she became very anxious at the thought of her sister finding out she does heroine. She denies any chest pain, shortness of breath, feverss, chills, abdominal pain , dizziness, syncopal episodes, or any other complaints. 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 Previous boyfriend introduced her to heroine. 2 sisters in quick succession recently. Boyfriend also . Smokes 1ppd for over 50 years. Former drinker. Snorts heroine. Never IV All: Sulfur Hospital Course: Patient was admitted and given Narcan. While in the emergency department the patient was placed on BIPAP and was saturating well. Patient was admitted for observation. Patient was seen and examined this morning and was fully alert and orientated. She was saturating well on room air and lab results were in normal limits. Patient was discharged with the following instructions. Imagin. EKG: sinus tachycardia, biatrial enlargement, nonspecific ST abnormality 2. Head ct: negative 3.Chest xray: no consolidation, overall interstitial markings, appear diffusely and bilaterally mildly increased- no definite change regarding this appearance noted Discharge Instructions: 1. F/u with PMD within one week of discharge. 2. Provided patient with Rehab options for Narcotics. 3.Return to hospital for any new or worsening symptoms. Discharge Exam - Head Exam Head Exam: ATRAUMATIC, NORMAL INSPECTION, NORMOCEPHALIC - Eye Exam Eye Exam: EOMI, Normal appearance, PERRL Pupil Exam: NORMAL ACCOMODATION, PERRL. absent: Irregular, Unequal - ENT Exam ENT Exam: Mucous Membranes Moist, Normal Oropharynx - Respiratory Exam Respiratory Exam: Clear to PA & Lateral, NORMAL BREATHING PATTERN, UNREMARKABLE - Cardiovascular Exam Cardiovascular Exam: REGULAR RHYTHM, +S1, +S2 - GI/Abdominal Exam GI & Abdominal Exam: Normal Bowel Sounds, Unremarkable. absent: Organomegaly - Back Exam Back exam: NORMAL INSPECTION. absent: CVA tenderness (R), paraspinal tenderness - Neurological Exam Neurological exam: Alert, CN II-XII Intact, Oriented x3 - Psychiatric Exam Psychiatric exam: Normal Affect, Normal Mood - Skin Skin Exam: Dry, Intact, Normal Color, Warm Discharge Plan - Follow Up Plan Condition: CRITICAL Disposition: HOME/ ROUTINE Instructions: Narcotic Overdose (DC) Additional Instructions: 1. F/u with PMD within one week of discharge. 2. Provided patient with Rehab options for Narcotics. 3.Return to hospital for any new or worsening symptoms. <Marquez Duggan - Last Filed: 11/21/17 16:25> Provider - Provider Date of Admission: 11/20/17 13:34 Attending physician: Marquez Duggan MD Hospital Course - Lab Results Lab Results: Most Recent Lab Values WBC 9.4 10^3/ul (4.5-11.0) 11/21/17 07:30 RBC 4.35 10^6/uL (3.5-6.1) 11/21/17 07:30 Hgb 12.6 g/dL (12.0-16.0) 11/21/17 07:30 Hct 38.5 % (36.0-48.0) 11/21/17 07:30 MCV 88.5 fl (80.0-105.0) 11/21/17 07:30 MCH 29.0 pg (25.0-35.0) 11/21/17 07:30 MCHC 32.7 g/dl (31.0-37.0) 11/21/17 07:30 RDW 14.0 % (11.5-14.5) 11/21/17 07:30 Plt Count 249 10^3/uL (120.0-450.0) 11/21/17 07:30 MPV 9.7 fl (7.0-11.0) 11/21/17 07:30 Gran % 70.5 % (50.0-68.0) H 11/21/17 07:30 Lymph % (Auto) 20.9 % (22.0-35.0) L 11/21/17 07:30 [place] % (Auto) 8.1 % (1.0-6.0) H 11/21/17 07:30 Eos % (Auto) 0.4 % (1.5-5.0) L 11/21/17 07:30 Baso % (Auto) 0.1 % (0.0-3.0) 11/21/17 07:30 Gran # 6.63 (1.4-6.5) H 11/21/17 07:30 Lymph # (Auto) 2.0 (1.2-3.4) 11/21/17 07:30 [place] # (Auto) 0.8 (0.1-0.6) H 11/21/17 07:30 Eos # (Auto) 0.0 (0.0-0.7) 11/21/17 07:30 Baso # (Auto) 0.01 K/mm3 (0.0-2.0) 11/21/17 07:30 pCO2 49 mm/Hg (35-45) H 11/20/17 12:55 pO2 120.0 mm/Hg (80-100) H 11/20/17 12:55 HCO3 21.0 mmol/L (21-28) 11/20/17 12:55 ABG pH 7.24 (7.35-7.45) L 11/20/17 12:55 ABG Total CO2 22.5 mmol.L (22-28) 11/20/17 12:55 ABG O2 Saturation 99.7 % (95-98) H 11/20/17 12:55 ABG Base Excess -6.6 mmol/L (-2.0-3.0) L 11/20/17 12:55 ABG Potassium 3.5 mmol/L (3.6-5.2) L 11/20/17 12:55 Sodium 141.0 mmol/L (132-148) 11/20/17 12:55 Chloride 113.0 mmol/L (98-107) H 11/20/17 12:55 Glucose 115 mg/dl (65-105) H 11/20/17 12:55 Lactate 0.5 mmol/L (0.7-2.1) L 11/20/17 12:55 FiO2 60.0 % 11/20/17 12:55 Sodium 138 mmol/L (132-148) 11/21/17 07:30 Potassium 4.2 mmol/L (3.6-5.0) 11/21/17 07:30 Chloride 104 mmol/L (98-107) 11/21/17 07:30 Carbon Dioxide 24 mmol/L (21-33) 11/21/17 07:30 Anion Gap 14 (10-20) 11/21/17 07:30 BUN 16 mg/dL (7-21) 11/21/17 07:30 Creatinine 0.6 mg/dl (0.7-1.2) L 11/21/17 07:30 Est GFR ( Amer) > 60 11/21/17 07:30 Est GFR (Non-Af Amer) > 60 11/21/17 07:30 POC Glucose (mg/dL) 91 mg/dL (65-110) 11/21/17 11:34 Random Glucose 92 mg/dL (70-110) 11/21/17 07:30 Hemoglobin A1c 5.8 % (4.2-6.5) 11/20/17 10:40 Calcium 9.2 mg/dL (8.4-10.5) 11/21/17 07:30 Magnesium 1.8 mg/dL (1.7-2.2) 11/20/17 10:40 Total Bilirubin 0.2 mg/dL (0.2-1.3) 11/20/17 10:40 AST 25 U/L (14-36) 11/20/17 10:40 ALT 27 U/L (7-56) 11/20/17 10:40 Alkaline Phosphatase 110 U/L (38-126) 11/20/17 10:40 Total Creatine Kinase 82 U/L (35-230) 11/20/17 10:40 Troponin I < 0.01 ng/mL 11/20/17 10:40 Total Protein 7.1 g/dL (5.8-8.3) 11/20/17 10:40 Albumin 4.3 g/dL (3.0-4.8) 11/20/17 10:40 Globulin 2.8 gm/dL 11/20/17 10:40 Albumin/Globulin Ratio 1.5 (1.1-1.8) 11/20/17 10:40 Triglycerides 93 mg/dL (35-160) 11/20/17 10:40 Cholesterol 149 mg/dL (130-200) 11/20/17 10:40 LDL Cholesterol Direct 58 mg/dL (0-129) 11/20/17 10:40 HDL Cholesterol 81 mg/dL (29-60) H 11/20/17 10:40 Arterial Blood Potassium 3.5 mmol/L (3.6-5.2) L 11/20/17 12:55 Urine Color Yellow (YELLOW) 11/20/17 11:30 Urine Appearance Clear (CLEAR) 11/20/17 11:30 Urine pH 6.0 (4.7-8.0) 11/20/17 11:30 Ur Specific [place] >= 1.030 (1.005-1.035) 11/20/17 11:30 Urine Protein 30 mg/dL (<30 mg/dL) H 11/20/17 11:30 Urine Glucose (UA) Negative mg/dL (NEGATIVE) 11/20/17 11:30 Urine Ketones Negative mg/dL (NEGATIVE) 11/20/17 11:30 Urine Blood Negative (NEGATIVE) 11/20/17 11:30 Urine Nitrate Negative (NEGATIVE) 11/20/17 11:30 Urine Bilirubin Negative (NEGATIVE) 11/20/17 11:30 Urine Urobilinogen 0.2 E.U./dL (<1 E.U./dL) 11/20/17 11:30 Ur Leukocyte Esterase Negative [place]/uL (NEGATIVE) 11/20/17 11:30 Urine RBC 0 - 2 /hpf (0-2) 11/20/17 11:30 Urine WBC 0 - 2 /hpf (0-6) 11/20/17 11:30 Ur Epithelial Cells 4 - 5 /hpf (0-5) 11/20/17 11:30 Amorphous Sediment Few 11/20/17 11:30 Urine Bacteria Large (NEG) 11/20/17 11:30 Coarse Granular Casts Trace /hpf (0-2) H 11/20/17 11:30 Urine Other Uyeast 11/20/17 11:30 Urine HCG, Qual Negative (NEGATIVE) 11/20/17 11:30 Salicylates < 1 mg/dL (2.0-20.0) L 11/20/17 10:40 Urine Opiates Screen Positive (NEGATIVE) H 11/20/17 11:30 Urine Methadone Screen Negative (NEGATIVE) 11/20/17 11:30 Acetaminophen < 10.0 ug/ml (10.0-20.0) L 11/20/17 10:40 Ur Barbiturates Screen Negative (NEGATIVE) 11/20/17 11:30 Ur Phencyclidine Scrn Negative (NEGATIVE) 11/20/17 11:30 Ur Amphetamines Screen Negative (NEGATIVE) 11/20/17 11:30 U Benzodiazepines Scrn Negative (NEGATIVE) 11/20/17 11:30 U Oth Cocaine Metabols Negative (NEGATIVE) 11/20/17 11:30 U Cannabinoids Screen Negative (NEGATIVE) 11/20/17 11:30 Alcohol, Quantitative < 10 mg/dL (0-10) 11/20/17 10:40 Attending/Attestation - Attestation I have personally seen and examined this patient.: Yes I have fully participated in the care of the patient.: Yes I have reviewed all pertinent clinical information, including history, physical exam and plan: Yes Notes (Text): 11/21/17 16:24 Attending note; Patient seen and examined with resident. Patient is off BiPAP. Not on oxygen Not in any acute distress. Ambulating fine without difficulty. Tolerating diet well. Patient is a 62 year old female with PMH of COPD and heroin abuse is admitted for lethargy after heroin abuse. Patient has multiple admission for the same problem. Currently stable. Pulmonary and neurology evaluation appreciated. Information about drug rehabilitation program given. Anxiety depression; continue home medication. Advised to follow-up with [facility] [place]. Patient will be admitted to telemetry for monitoring. Upon discharge the patient will follow-up with PMD of choice. Prognosis is poor secondary to continuous drug abuse. Diagnosis; Heroin abuse Lethargy COPD Depression Noncompliance with follow-up
[2017-11-21 13:26] VITALS: BP 124/80; PULSE 65; RESP 18; TEMP 98
== END 2017-11-21 14:37 | disposition home or self-care (01) | DRG 582 ==
LOC: ED 10:35 → ERH 13:34 → 2RSO 19:28
PROVIDERS: ADMIT Internal Medicine; ATTEND Internal Medicine
DX: T40.1X1A Poisoning by heroin, accidental (unintentional), initial encounter (principal); G92 Toxic encephalopathy; F11.10 Opioid abuse, uncomplicated; E87.2 Acidosis; J44.1 Chronic obstructive pulmonary disease with (acute) exacerbation; R09.02 Hypoxemia; E11.9 Type 2 diabetes mellitus without complications; E78.5 Hyperlipidemia, unspecified; F17.210 Nicotine dependence, cigarettes, uncomplicated; F31.9 Bipolar disorder, unspecified; F41.0 Panic disorder [episodic paroxysmal anxiety]; F41.8 Other specified anxiety disorders; F43.10 Post-traumatic stress disorder, unspecified; G25.3 Myoclonus; I11.9 Hypertensive heart disease without heart failure; Z87.01 Personal history of pneumonia (recurrent); Z87.440 Personal history of urinary (tract) infections; Z91.19 Patient's noncompliance with other medical treatment and regimen; D64.9 Anemia, unspecified; Z88.0 Allergy status to penicillin; Z88.2 Allergy status to sulfonamides

== ENCOUNTER 2018-01-12 15:26 | Observation (INO) | payer MEDICAID ==
[2018-01-12 15:26] VITALS: BMI 23.8
[2018-01-12] MEDS ORDERED: TDAP Vaccine 0.5 mL Syr IM ONE (15:35)
[2018-01-12] MEDS ORDERED: Sodium Chloride 0.9% 1,000 ML IV STA (15:35)
--- NOTE | 2018-01-12 15:35 | ED PDOC ---
Arrival/HPI - General Time Seen by Provider: 01/12/18 15:30 Historian: Patient, EMS EM Caveat: Intoxicated - History of Present Illness Narrative History of Present Illness (Text): 01/12/18 15:31 62 y/o female, pmh including copd/seizure/hld, psychiatric history including drug abuse, last tetanus doesn't remember, allergic to penicillin, biba s/p fall on the street about 1 hour ago. Pt. admitted using the heroine today, fall and landed on the street about 1 hour ago, found to be having scattered wheezing noted bilaterally and intoxicated on the street. Pt. has no nausea or vomiting, no neck or back pain, no abdominal or pelvic pain, no numbness or tingling, no night sweat, no rash, no numbness or tingling, no other medical or psychological complaints. Past Medical History - Provider Review Nursing Documentation Reviewed: Yes - Past History Past History: No Previous - Infectious Disease Hx of Infectious Diseases: None - Tetanus Immunization Tetanus Immunization: Unknown - Cardiac Hx Cardiac Disorders: Yes Hx Hypertension: Yes - Pulmonary Hx Respiratory Disorders: Yes Hx Bronchitis: Yes Hx Chronic Obstructive Pulmonary Disease (COPD): Yes Hx Emphysema: Yes Hx Pneumonia: Yes Hx Respiratory Tract Infection: Yes - Neurological Hx Neurological Disorder: Yes Hx Dizziness: Yes Hx Migraine: Yes - HEENT Hx HEENT Disorder: Yes (blurred vision) Hx Epistaxis: Yes - Renal Hx Renal Disorder: No - Endocrine/Metabolic Hx Endocrine Disorders: Yes Hx Diabetes Mellitus Type 2: Yes (hx of) Hx Hyperthyroidism: Yes - Hematological/Oncological Hx Blood Disorders: Yes Hx Anemia: Yes - Integumentary Hx Dermatological Disorder: No - Musculoskeletal/Rheumatological Hx Musculoskeletal Disorders: No Hx Falls: No - Gastrointestinal Hx Gastrointestinal Disorders: No (APPENDICITIS WITH PERITONITIS-APPENDECTOMY) - Genitourinary/Gynecological Hx Genitourinary Disorders: Yes Hx Urinary Tract Infection: Yes - Psychiatric Hx Psychophysiologic Disorder: Yes (HEROINE ABUSE-SNORTS,SMOKES CIGARETTES) Hx Anxiety: Yes Hx Bipolar Disorder: Yes Hx Depression: Yes Hx Hallucinations: Yes Hx Panic Disorder: Yes Hx Post Traumatic Stress Disorder: Yes Hx Substance Use: Yes (HEROINE ABUSE.MULTIPLE DRUG PROGRAMS.LAST SNORTED 6 BAGS.DENIES IVDU) - Surgical History Hx Amputation: No Hx Appendectomy: Yes Hx Cholecystectomy: No Hx Gastric Bypass Surgery: No Hx Hysterectomy: No Hx Joint Replacement: No Hx Kidney Transplant: No Hx Liver Transplant: No Hx Mastectomy: No Hx Musculoskeletal Surgery: No Hx Open Heart Surgery: No Hx Orthopedic Surgery: No Hx Splenectomy: No Hx Valve Replacement: No - Anesthesia Hx Anesthesia: Yes Hx Anesthesia Reactions: No Hx Malignant Hyperthermia: No Family/Social History - Physician Review Nursing Documentation Reviewed: Yes Family/Social History: Unknown Family HX Smoking Status: Current Some Days Smoker Hx Alcohol Use: No Hx Substance Use: Yes (HEROINE ABUSE.MULTIPLE DRUG PROGRAMS.LAST SNORTED 6 BAGS.DENIES IVDU) Substance used: heroin Allergies/Home Meds Allergies/Adverse Reactions: Allergies Penicillins Allergy (Verified 01/12/18 15:29) RASH sulfur Allergy (Uncoded 01/12/18 15:29) RASH Home Medications: Home Meds Medication Instructions Recorded Confirmed ARIPiprazole [Abilify] 5 mg PO DAILY 10/09/17 01/12/18 Atorvastatin [Lipitor] 20 mg PO DAILY 10/09/17 01/12/18 Cholecalciferol [Vitamin D 1000 IU] 1,000 iu PO DAILY 10/09/17 01/12/18 Fluticasone/Vilanterol [Breo 1 puff INH BID 10/09/17 01/12/18 Ellipta 100-25 Mcg INH] Mirtazapine [Remeron] 30 mg PO DAILY 10/09/17 01/12/18 Ropinirole HCl [Requip] 5 mg PO HS 10/09/17 01/12/18 Vitamin B Complex [Balance B-100] 1 tab PO DAILY 10/09/17 01/12/18 busPIRone [Buspar] 7.5 mg PO DAILY 10/09/17 01/12/18 hydrOXYzine HCl [Atarax] 50 mg PO DAILY 10/09/17 01/12/18 Review of Systems - Review of Systems Constitutional: absent: Fatigue, Weight Change Eyes: absent: Vision Changes ENT: absent: Hearing Changes Respiratory: absent: SOB, Cough Cardiovascular: absent: Chest Pain Gastrointestinal: absent: Abdominal Pain, Nausea, Vomiting Musculoskeletal: absent: Arthralgias, Back Pain, Neck Pain, Myalgias Skin: Laceration. absent: Rash, Pruritis, Abscess, Ulcer, Cellulitis Neurological: absent: Headache, Dizziness Psychiatric: absent: Anxiety, Depression, Suicidal Ideation Physical Exam - Physical Exam Physical Exam Limitations: Intoxication Vital Signs Reviewed: Yes Vital Signs Temp Pulse Resp BP Pulse Ox 01/12/18 19:00 90 18 114/83 96 01/12/18 18:50 94 H 18 99/51 L 96 01/12/18 17:48 96 H 18 85/52 L 95 01/12/18 17:40 98.6 F 87 18 99/68 L 95 01/12/18 15:40 98.3 F 91 H 18 102/79 95 01/12/18 15:34 97.7 F 118 H 18 94/55 L 95 Temperature: Afebrile Blood Pressure: Hypotensive Pulse: Tachycardic Respiratory Rate: Normal Appearance: Positive for: Unkept Mental Status: Positive for: Alert and Oriented X 3 - Systems Exam Head: Present: Atraumatic, Normocephalic, Other (Facial: visible approx. 3cm superficial to intermediate depth laceration noted with mild +ttp on the lt. superior orbital region, no other bony tenderness or swelling, no deformity. ). No: Tenderness, Contusion, Swelling, Ecchymosis, Abrasion, Laceration Pupils: Present: PERRL Extroacular Muscles: Present: EOMI Conjunctiva: Present: Normal Ears: Present: NORMAL TM, Normal Canal. No: Erythema Mouth: Present: Moist Mucous Membranes Pharnyx: Present: Normal. No: ERYTHEMA, EXUDATE, TONSILS ENLARGED Nose (External): Present: Atraumatic. No: Abrasion, Contusion, Laceration, Lesions Nose (Internal): Present: Normal Inspection, No Active Bleeding. No: Rhinorrhea , Septal Hematoma, Epistaxis Neck: Present: Normal Range of Motion, Trachea Midline. No: MIDLINE TENDERNESS , Paraspinal Tenderness, Lymphadenopathy Respiratory/Chest: Present: Clear to Auscultation, Good Air Exchange, Wheezes ( bilateral ), Decreased Breath Sounds (bilateral ), Rhonchi (bilateral ). No: Respiratory Distress, Accessory Muscle Use, Rales, Retracting, Tachypneic Cardiovascular: Present: Regular Rate and Rhythm, Normal S1, S2. No: Murmurs Abdomen: No: Tenderness, Distention, Peritoneal Signs, Rebound, Guarding Back: Present: Normal Inspection. No: Midline Tenderness, Paraspinal Tenderness , Pain with Leg Raise Upper Extremity: Present: Normal Inspection, Normal ROM, Neurovascularly Intact , Capillary Refill < 2s. No: Cyanosis, Edema, Deformity Lower Extremity: Present: Normal Inspection, NORMAL PULSES, Normal ROM, Neurovascularly Intact, Capillary Refill < 2 s. No: Edema, Tenderness, Swelling , Deformity Neurological: Present: GCS=15, CN II-XII Intact, Motor Func Grossly Intact, Memory Normal Skin: Present: Warm, Dry, Normal Color. No: Rashes Psychiatric: Present: Alert, Oriented x 3, Intoxicated Medical Decision Making ED Course and Treatment: 01/12/18 15:38 Differential: ICH vs. COPD vs. Pneumonia vs. Overdose heroine -Labs/vbg -CT head/maxillofacial -Chest xray -IV solumedrol/duoneb/fluids -hospice educator -Observe and reassess PROCEDURE: LACERATION REPAIR Performed by the emergency provider Location: Lt. facial region Length: approx. 3 cm Description: {"clean wound edges","no foreign bodies"} Distal CMS: Normal. No deficits. Neurovascularly intact. Anesthesia: Lidocaine 1% 0.75cc Preparation: The wound was cleaned with NS 1000cc and Betadyne. The area was prepped and draped in the usual sterile fashion. Exploration: The wound was explored and no foreign bodies were found. Procedure: The wound was closed with 6-0 vicryl absorbable sutures. There was { good / appropriate / adequate / loose} approximation. In total, 5 sutures were used. Post-Procedure: Good closure and hemostasis. The patient tolerated the procedure well and there were no complications. CSM remains intact. Post procedure dressing applied. 01/12/18 18:40 -CT head: No acute intracranial pathology or traumatic injury. -CT facial: No acute facial bone fracture/dislocation. No acute orbital traumatic injury. -Chest xray No active disease. -Labs show no acute findings -VBG: PH 7.27, Co2 55, HCO3 25 -UA ordered and pending result. -UDS ordered and pending result. -Alcohol serum within normal limit -Pt. is hypoxic room air around 88-92 percent, tachycardia resolved, still scattered wheezing/rhonchis, will need continue nebulizer -EKG: NSR @ 88 BPM, no ST elevation or depression, no T wave inversion, compared with previous ekg. 01/12/18 19:53 -I spoke to the admitting team, night house doctor, Dr. Mahmood and the medical scientific liaison, discussed about the case/labs/radiology result, agreed to admit the patient. Pt. will be admitted to the [facility] for COPD exacerbation with continue nebulizer. - Critical Care Critical Care Minutes: 30 minutes Critical Care Time: Unstable Narrative Critical Care (Text): 01/12/18 19:23 hypoxemia/copd/rhonchis/wheezing, IV steroid and continue nebulizer treatment. - Lab Interpretations Lab Results: 01/12/18 15:50 01/12/18 15:50 Lab Results 01/12/18 15:50: WBC 5.2 D, RBC 4.67, Hgb 14.0, Hct 41.8, MCV 89.5, MCH 30.0, MCHC 33.5, RDW 13.6, Plt Count 264, MPV 10.3, Gran % 66.1, Lymph % (Auto) 26.6, Mitchell % (Auto) 4.0, Eos % (Auto) 2.9, Baso % (Auto) 0.4, Gran # 3.45, Lymph # ( Auto) 1.4, Mitchell # (Auto) 0.2, Eos # (Auto) 0.2, Baso # (Auto) 0.02 01/12/18 15:50: Alcohol, Quantitative < 10 01/12/18 15:50: Salicylates < 1 L, Acetaminophen < 10.0 L 01/12/18 15:50: Sodium 147, Chloride 112 H, Potassium 4.5, Carbon Dioxide 23, Anion Gap 17, BUN 18, Creatinine 0.8, Est GFR ( Amer) > 60, Est GFR (Non- Af Amer) > 60, Random Glucose 127 H, Calcium 9.6, Total Bilirubin 0.3, AST 22, ALT 18, Alkaline Phosphatase 76, Total Creatine Kinase 45, Total Protein 7.2, Albumin 4.3, Globulin 2.9, Albumin/Globulin Ratio 1.5 01/12/18 15:50: pO2 104 H, VBG pH 7.27 L, VBG pCO2 55.0, VBG HCO3 25.3, VBG Total CO2 27.0, VBG O2 Sat (Calc) 98.6 H, VBG Base Excess -2.5 L, VBG Potassium 4.4, Sodium 144.0, Chloride 111.0 H, Glucose 129 H, Lactate 1.1, FiO2 21.0, Venous Blood Potassium 4.4 I have reviewed the lab results: Yes - RAD Interpretation Radiology Orders: 01/12/18 15:35 HEAD W/O CONTRAST [CT] Stat MAXILLOFACIAL W/O CONTRAST [CT] Stat 01/12/18 15:39 CHEST PORTABLE [RAD] Stat Chest xray: HISTORY: medical clearance COMPARISON: 11/20/2017 FINDINGS: LUNGS: No active pulmonary disease. PLEURA: No significant pleural effusion identified, no pneumothorax apparent. CARDIOVASCULAR: Normal. OSSEOUS STRUCTURES: No significant abnormalities. VISUALIZED UPPER ABDOMEN: Normal. OTHER FINDINGS: None. IMPRESSION: No active disease. 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 Diffuse cerebral volume loss and chronic microvascular white matter changes. Ventricles: Unremarkable. Bones/joints: Unremarkable. No acute fracture. Soft tissues: Unremarkable. Sinuses: Unremarkable as visualized. Mastoid air cells: Unremarkable as visualized. IMPRESSION: No acute intracranial pathology or traumatic injury. Thank you for allowing us to participate in the care of your patient. Dictated and Authenticated by: Enzo Gonsales MD 01/12/2018 6:37 PM Eastern Time ([place] & [place]) CT Facial: CT facial: FINDINGS: Bones/joints: No acute fracture. Soft tissues: Unremarkable. Orbits: Unremarkable. Sinuses: Unremarkable as visualized. IMPRESSION: No acute facial bone fracture/dislocation. No acute orbital traumatic injury. Thank you for allowing us to participate in the care of your patient. Dictated and Authenticated by: Enzo Gonsales MD 01/12/2018 6:38 PM Eastern Time ([place] & [place]) Gis Engineer: Radiologist - EKG Interpretation EKG Interpretation (Text): 01/12/18 19:53 EKG: NSR @ 88 BPM, no ST elevation or depression, no T wave inversion, compared with previous ekg. Interpreted by ED Physician: Yes Type: 12 lead EKG Comparison: Com.w/previous EKG - Medication Orders Current Medication Orders: Discontinued Medications Albuterol/Ipratropium (Duoneb 3 Mg/0.5 Mg (3 Ml) Ud) 3 ml IH Q15M COCO Stop: 01/12/18 16:16 Last Admin: 01/12/18 16:14 Dose: 3 ml Sodium Chloride (Sodium Chloride 0.9%) 1,000 mls @ 999 mls/hr IV .Q1H1M STA Stop: 01/12/18 16:35 Last Admin: 01/12/18 15:44 Dose: 999 mls/hr eMAR Start Stop Document 01/12/18 15:44 EWO (Rec: 01/12/18 15:45 [email or web address] [id number]) Intravenous Solution Start Date 01/12/18 Start Time 15:45 End Date 01/12/18 End time 16:45 Total Infusion Time 60 Sodium Chloride (Sodium Chloride 0.9%) 500 mls @ 999 mls/hr IV .Q31M STA Stop: 01/12/18 17:23 Last Admin: 01/12/18 17:00 Dose: 999 mls/hr eMAR Start Stop Document 01/12/18 17:00 EWO (Rec: 01/12/18 17:58 [email or web address] [id number]) Intravenous Solution Start Date 01/12/18 Start Time 17:00 End Date 01/12/18 End time 18:00 Total Infusion Time 60 Methylprednisolone (Solu-Medrol) 125 mg IVP STAT STA Stop: 01/12/18 15:36 Last Admin: 01/12/18 15:45 Dose: 125 mg IVP Administration Document 01/12/18 15:45 EWO (Rec: 01/12/18 15:45 [id number] [id number]) Charges for Administration # of IVP Administrations 1 Tetanus/Reduced Diphtheria/Acell Pertussis (Boostrix Vaccine Inj) 0.5 ml IM .ONCE ONE Stop: 01/12/18 15:36 Last Admin: 01/12/18 15:45 Dose: 0.5 ml Immunization Registry Document 01/12/18 15:45 EWO (Rec: 01/12/18 15:45 [id number] [id number]) Immunization Registry Consent Date 10/17/17 - PA / GETTERING OPERATOR / Resident Statement MD/DO has reviewed & agrees with the documentation as recorded. Disposition/Present on Arrival - Present on Arrival Any Indicators Present on Arrival: No History of DVT/PE: No History of Uncontrolled Diabetes: No Urinary Catheter: No History of Decub. Ulcer: No History Surgical Site Infection Following: None - Disposition Have Diagnosis and Disposition been Completed?: Yes Diagnosis: Facial laceration, Heroin abuse, COPD exacerbation, Hypoxemia Disposition: HOSPITALIZED Disposition Time: 19:22 Patient Plan: Admission, Observation, Telemetry Patient Problems: Current Active Problems Problem Status Onset COPD exacerbation Acute Facial laceration Acute Heroin abuse Acute Hypoxemia Acute Condition: STABLE [facility] - Follow up with primary
[2018-01-12] MEDS: Albuterol-Ipratrop 3 mg / 0.5 (3 ml) UD IH SCH ×3 (15:45→16:14)
[2018-01-12 15:59] LABS: BASO # 0.02 K/mm3 (0.0-2.0); BASO % 0.4 % (0.0-3.0); EOS # 0.2 (0.0-0.7); EOS % 2.9 % (1.5-5.0); GRAN # 3.45 (1.4-6.5); GRAN % 66.1 % (50.0-68.0); LYMPH # 1.4 (1.2-3.4); LYMPH % 26.6 % (22.0-35.0); MEAN CELL VOLUME 89.5 fl (80.0-105.0); MEAN CORPUSCULAR HGB CONC 33.5 g/dl (31.0-37.0); MEAN PLATELET VOLUME 10.3 fl (7.0-11.0); MONO # 0.2 (0.1-0.6); RBC 4.67 10^6/uL (3.5-6.1); RED CELL DISTRIBUTION WIDTH 13.6 % (11.5-14.5); VENOUS BLOOD GAS BASE EXCESS -2.5 mmol/L (0.0-2.0); VENOUS BLOOD GAS PO2 104 mm/Hg (30-55); VENOUS BLOOD PH 7.27 (7.32-7.43); WHITE BLOOD COUNT 5.2 10^3/ul (4.5-11.0)
[2018-01-12 16:11] LABS: ALB/GLOB RATIO 1.5 (1.1-1.8); ALBUMIN 4.3 g/dL (3.0-4.8); ALT/SGPT 18 U/L (7-56); AST/SGOT 22 U/L (14-36); BLOOD UREA NITROGEN 18 mg/dL (7-21); CALCIUM 9.6 mg/dL (8.4-10.5); GFR AFRICAN-AMERICAN > 60; GFR NON-AFRICAN AMERICAN > 60
[2018-01-12 16:14] LABS: ACETAMINOPHEN < 10.0 ug/ml (10.0-20.0); SALICYLATE < 1 mg/dL (2.0-20.0)
[2018-01-12] MEDS ORDERED: Lidocaine 1% Inj (20ml) ONE (16:30)
[2018-01-12] MEDS ORDERED: Sodium Chloride 0.9% 500 ML IV STA (16:53)
--- NOTE | 2018-01-12 17:34 | RAD ---
Date of service: 01/12/2018 HISTORY: medical clearance COMPARISON: 11/20/2017 FINDINGS: LUNGS: No active pulmonary disease. PLEURA: No significant pleural effusion identified, no pneumothorax apparent. CARDIOVASCULAR: Normal. OSSEOUS STRUCTURES: No significant abnormalities. VISUALIZED UPPER ABDOMEN: Normal. OTHER FINDINGS: None. IMPRESSION: No active disease.
[2018-01-12] MEDS ORDERED: Levalbuterol 1.25 MG/3 ML Inhal Soln UD IH STA (19:52)
[2018-01-12] MEDS ORDERED: Albuterol-Ipratrop 3 mg / 0.5 (3 ml) UD IH PRN (21:07)
[2018-01-12] MEDS ORDERED: guaiFENesin 100 mg/5 ml Syrup UD PO PRN (21:10)
--- NOTE | 2018-01-12 22:45 | CP.PCM.HP ---
<BaCon - Last Filed: 01/13/18 09:04> History of Present Illness - History of Present Illness History of Present Illness: Con Cosme D.O. PGY-1, HISTORY & PHYSICAL NOTE FOR HOSPITALIST TEAM CC: Wheezing, found obtunded in street after heroin overdose. 62 y/o F with pmhx of COPD not on home O2, heroin abuse, anxiety, HLD, presented to ED s/p fall 1 hour before arrival. Pt had landed on floor and struck her L forehead to the ground. She denied any loss of consciousness however does not remember many of the details after she had fell. She reports that she had snorted 4 bags of heroin around 2pm. She reports that she regularly snorts ~4 bags heroin daily, but snorted a large amount at once today. She denies use of IV administration. She denies symptoms of withdrawal. She was found by EMS on the street with scattered wheezing bilaterally and found intoxicated. Pt does not remember if she received narcan by EMS on the way to the hospital. Upon interview, pt has no complaints and claims she is "fine." She reports occasional cough but denies other respiratory issues. Pt was saturating at ~92% on 4L NC during ED visit. Pt expressed concern that her sister, who she lives with, would find out that she has been using heroin. She denies fevers, chills, chest pain, shortness of breath, nausea, vomiting, headache, abdominal pain, weaknses, worst headache of life, vision changes, constipation, diarrhea, suicidal ideations, delusions or hallucinations. Psychiatrist: Dr. Moser PMD: none PMH: COPD, heroin abuse, HLD, anxiety SH: appendectomy SH: smokes 1 pack/day x 20 years, Alcohol 1 can/day Allergies: Sulfa/penicillin- rash Meds: See AUG. Pt has been non-compliant with meds. Has not seen psychiatrist in over 1 month. Present on Admission - Present on Admission Any Indicators Present on Admission: No Review of Systems - Review of Systems All systems: reviewed and no additional remarkable complaints except (as per HPI , otherwise negative) Past Patient History - Infectious Disease Hx of Infectious Diseases: None - Tetanus Immunizations Tetanus Immunization: Unknown - Past Social History Smoking Status: Heavy Smoker > 10 Cigarettes Daily - CARDIAC Hx Cardiac Disorders: Yes Hx Hypercholesterolemia: Yes - PULMONARY Hx Respiratory Disorders: Yes Hx Bronchitis: Yes Hx Chronic Obstructive Pulmonary Disease (COPD): Yes Hx Emphysema: Yes Hx Pneumonia: Yes Hx Respiratory Tract Infection: Yes - NEUROLOGICAL Hx Neurological Disorder: Yes Hx Seizures: Yes - HEENT Hx HEENT Problems: Yes (blurred vision) - RENAL Hx Chronic Kidney Disease: No - ENDOCRINE/METABOLIC Hx Endocrine Disorders: Yes Hx Hyperthyroidism: Yes - HEMATOLOGICAL/ONCOLOGICAL Hx Blood Disorders: No - INTEGUMENTARY Hx Dermatological Problems: No - MUSCULOSKELETAL/RHEUMATOLOGICAL Hx Musculoskeletal Disorders: No Hx Falls: Yes (s/p fall on the floor 01/12/18) - GASTROINTESTINAL Hx Gastrointestinal Disorders: Yes (APPENDICITIS WITH PERITONITIS-APPENDECTOMY) - GENITOURINARY/GYNECOLOGICAL Hx Genitourinary Disorders: Yes Hx Urinary Tract Infection: Yes - PSYCHIATRIC Hx Psychophysiologic Disorder: Yes (HEROINE ABUSE-SNORTS,SMOKES CIGARETTES) Hx Anxiety: Yes Hx Bipolar Disorder: Yes Hx Depression: Yes Hx Hallucinations: Yes Hx Panic Symptoms: Yes Hx Post Traumatic Stress Disorder: Yes - SURGICAL HISTORY Hx Surgeries: Yes Hx Appendectomy: Yes - ANESTHESIA Hx Anesthesia: Yes Hx Anesthesia Reactions: No Hx Malignant Hyperthermia: No Meds Allergies/Adverse Reactions: Allergies Allergy/AdvReac Type Severity Reaction Status Date / Time Penicillins Allergy RASH Verified 01/12/18 15:29 sulfur Allergy RASH Uncoded 01/12/18 15:29 Physical Exam - Constitutional Appears: Well, Non-toxic - Head Exam Head Exam: ATRAUMATIC, NORMOCEPHALIC Additional comments: 3cm superficial abrasion above L superior orbital region. no bony deformity. mild ttp - Eye Exam Eye Exam: EOMI, Normal appearance - ENT Exam ENT Exam: Mucous Membranes Moist, Normal Exam - Neck Exam Neck exam: Positive for: Normal Inspection. Negative for: Meningismus - Respiratory Exam Respiratory Exam: Decreased Breath Sounds, Prolonged Expiratory Phase Additional comments: Course breath sounds - Cardiovascular Exam Cardiovascular Exam: REGULAR RHYTHM, +S1, +S2 - GI/Abdominal Exam GI & Abdominal Exam: Normal Bowel Sounds, Soft. absent: Tenderness - Extremities Exam Extremities exam: Positive for: normal inspection. Negative for: calf tenderness - Neurological Exam Neurological exam: Alert, Oriented x3 - Psychiatric Exam Psychiatric exam: Anxious, Normal Mood - Skin Skin Exam: Dry, Intact, Warm Results - Vital Signs Recent Vital Signs: Last Vital Signs Temp 98.2 F 01/12/18 22:21 Pulse 82 01/12/18 22:21 Resp 19 01/12/18 22:21 BP 112/73 01/12/18 22:21 Pulse Ox 96 01/12/18 19:00 - Labs Result Diagrams: 01/13/18 06:00 01/13/18 06:00 Assessment & Plan - Assessment and Plan (Free Text) Assessment: 62 y/o F with pmhx of COPD, heroin abuse, HLD, anxiety admitted for COPD exacerbation. Pt had snorted 4 bags of heroin today, and was found obtunded by EMS after she had fell and hit her head. She was found to have a small contusion in the L superior orbital region, bilateral wheezing, respiratory distress and was intoxicated when EMS arrived. She presented to ED and was saturating at 88% on room air with crackles on lung exam. She received 3 doses of steroids in ED. Upon interview, pt was saturating at 92% on 5L NC, and was in no respiratory distress. She appeared anxious as she didn't want her sister to know she had overdosed on drugs. Plan: 1. COPD Exacerbation Likely secondary to heroin overdose Saturating at ~92% on 4L NC. Course breath sounds Given methylprednisolone IVP in ER Started Duoneb 3mL IH [id number] with Q2H prn Started Azithromycin 500mg daily Started Robitussin 100mg po Q4H 2. Substance use disorder Consumed 4 bags heroin today Reports daily alcohol consumption Start [facility] protocol Neuro checks q4x12 Seizure precautions 3. Anxiety Start Ativan 0.5mg po q4 prn F/u outpatient psychiatrist 4. Hyperlipidemia Continue home atorvastatin 20mg f/u lipid panel 5. Cerebral contusion CT head (-) CT maxillofacial (-) High fall risk protocol Hold DVT ppx Neurology consult Diet/GI/DVT: Reg/protonix Case discussed with and reviewed by attending physician, Dr. Mahmood - Date & Time Time: 02:54 <Helen Mahmood - Last Filed: 01/13/18 20:53> Results - Vital Signs Recent Vital Signs: Last Vital Signs Temp 98.0 F 01/13/18 18:00 Pulse 79 01/13/18 18:00 Resp 19 01/13/18 18:00 BP 113/78 01/13/18 18:00 Pulse Ox 97 01/13/18 18:00 - Labs Result Diagrams: 01/13/18 06:00 01/13/18 06:00 Labs: Laboratory Results - last 24 hr 01/13/18 01/13/18 01/13/18 06:00 06:00 06:00 WBC 9.3 D RBC 4.07 Hgb 11.8 L D Hct 36.6 MCV 89.9 MCH 29.0 MCHC 32.2 RDW 13.8 Plt Count 240 MPV 10.9 Gran % 83.9 H Lymph % (Auto) 11.7 L Webster % (Auto) 4.3 Eos % (Auto) 0.0 L Baso % (Auto) 0.1 Gran # 7.84 H Lymph # (Auto) 1.1 L Webster # (Auto) 0.4 Eos # (Auto) 0.0 Baso # (Auto) 0.01 Sodium 139 Potassium 4.8 Chloride 107 Carbon Dioxide 24 Anion Gap 12 BUN 14 Creatinine 0.5 L Est GFR ( Amer) > 60 Est GFR (Non-Af Amer) > 60 Random Glucose 89 Calcium 9.0 Phosphorus 3.6 Magnesium 1.9 Total Bilirubin 0.4 AST 22 ALT 25 Alkaline Phosphatase 62 Total Protein 6.3 Albumin 3.7 Globulin 2.6 Albumin/Globulin Ratio 1.4 Triglycerides 69 Cholesterol 124 L LDL Cholesterol Direct 39 HDL Cholesterol 68 H Thyroxine (T4) Free T3 pg/mL TSH 3rd Generation 0.12 L 01/13/18 01/13/18 13:37 13:37 WBC RBC Hgb Hct MCV MCH MCHC RDW Plt Count MPV Gran % Lymph % (Auto) Webster % (Auto) Eos % (Auto) Baso % (Auto) Gran # Lymph # (Auto) Webster # (Auto) Eos # (Auto) Baso # (Auto) Sodium Potassium Chloride Carbon Dioxide Anion Gap BUN Creatinine Est GFR ( Amer) Est GFR (Non-Af Amer) Random Glucose Calcium Phosphorus Magnesium Total Bilirubin AST ALT Alkaline Phosphatase Total Protein Albumin Globulin Albumin/Globulin Ratio Triglycerides Cholesterol LDL Cholesterol Direct HDL Cholesterol Thyroxine (T4) 6.6 Free T3 pg/mL 3.48 TSH 3rd Generation Attending/Attestation - Attestation I have personally seen and examined this patient.: Yes I have fully participated in the care of the patient.: Yes I have reviewed all pertinent clinical information: Yes Notes (Text): 01/13/18 20:52 Patient was seen when she was in the ER. Agree with history ,physical examination, assessment and plan.
[2018-01-13] MEDS: Albuterol-Ipratrop 3 mg / 0.5 (3 ml) UD IH SCH ×4 (03:53→21:35)
[2018-01-13] MEDS: Pantoprazole 40 mg EC Tab PO SCH (07:22)
[2018-01-13 07:52] LABS: BASO # 0.01 K/mm3 (0.0-2.0); BASO % 0.1 % (0.0-3.0); GRAN # 7.84 (1.4-6.5); GRAN % 83.9 % (50.0-68.0); HEMOGLOBIN 11.8 g/dL (12.0-16.0); LYMPH # 1.1 (1.2-3.4); LYMPH % 11.7 % (22.0-35.0); MEAN CELL VOLUME 89.9 fl (80.0-105.0); MEAN CORPUSCULAR HGB CONC 32.2 g/dl (31.0-37.0); MEAN PLATELET VOLUME 10.9 fl (7.0-11.0); MONO # 0.4 (0.1-0.6); MONO % 4.3 % (1.0-6.0); RBC 4.07 10^6/uL (3.5-6.1); RED CELL DISTRIBUTION WIDTH 13.8 % (11.5-14.5); WHITE BLOOD COUNT 9.3 10^3/ul (4.5-11.0)
[2018-01-13 08:01] LABS: ALB/GLOB RATIO 1.4 (1.1-1.8); ALBUMIN 3.7 g/dL (3.0-4.8); ALT/SGPT 25 U/L (7-56); AST/SGOT 22 U/L (14-36); BLOOD UREA NITROGEN 14 mg/dL (7-21); GFR AFRICAN-AMERICAN > 60; GFR NON-AFRICAN AMERICAN > 60; HDL CHOLESTEROL 68 mg/dL (29-60)
[2018-01-13 08:09] LABS: LDL CHOLESTEROL 39 mg/dL (0-129)
--- NOTE | 2018-01-13 08:34 | CARD ---
APPROVED REPORT Date of service: 01/12/2018 EKG Measurement Heart [id number] <Conclusion> Normal sinus rhythm Normal ECG
--- NOTE | 2018-01-13 09:06 | CP.PCM.PN ---
<Chava Garcia - Last Filed: 01/13/18 13:58> Subjective - Date & Time of Evaluation Date of Evaluation: 01/13/18 Time of Evaluation: 09:00 - Subjective Subjective: Chava Garcia DO - PGY1 Internal Medicine Nutrition Director - Hospital Progress note Seen at bedside this AM; no complaints overnight. No issues/concerns voiced by nursing overnight. Denies Sob, cough, F, chills, abd pain, N/V/D/C, tremors, urinary complaints, Cp , palp. 12 system ROS otherwise unremarkable Objective - Vital Signs/Intake and Output Vital Signs (last 24 hours): Temp Pulse Resp BP Pulse Ox 97.8 F 66 18 97/64 L 98 01/13/18 08:56 01/13/18 08:56 01/13/18 08:56 01/13/18 08:56 01/13/18 08:56 - Medications Medications: Current Medications Albuterol/Ipratropium (Duoneb 3 Mg/0.5 Mg (3 Ml) Ud) 3 ml IH [id number] COUNT INCLUDES [facility] Last Admin: 01/13/18 08:41 Dose: 3 ml Albuterol/Ipratropium (Duoneb 3 Mg/0.5 Mg (3 Ml) Ud) 3 ml IH Q2H PRN PRN Reason: Shortness of Breath Atorvastatin Calcium (Lipitor) 20 mg PO DAILY [facility] Guaifenesin (Robitussin) 100 mg PO Q4H PRN PRN Reason: Cough Azithromycin (Zithromax 500mg In Ns) 500 mg in 250 mls @ 167 mls/hr IVPB DAILY [facility] PRN Reason: Protocol Lorazepam (Ativan) 0.5 mg PO Q4 PRN; Protocol PRN Reason: Anxiety Pantoprazole Sodium (Protonix Ec Tab) 40 mg PO ACB [facility] - Labs Labs: 01/13/18 06:00 01/13/18 06:00 - Constitutional Appears: Well, Non-toxic - Head Exam Head Exam: ATRAUMATIC, NORMOCEPHALIC - Eye Exam Eye Exam: EOMI, PERRL. absent: Scleral icterus Pupil Exam: absent: Miosis, Mydriatic - ENT Exam ENT Exam: Mucous Membranes Moist - Respiratory Exam Respiratory Exam: Prolonged Expiratory Phase, Rhonchi, Wheezes. absent: Respiratory Distress - Cardiovascular Exam Cardiovascular Exam: RRR, +S1, +S2. absent: Murmur - GI/Abdominal Exam GI & Abdominal Exam: Soft. absent: Tenderness - Extremities Exam Extremities Exam: Normal Inspection. absent: Pedal Edema - Back Exam Back Exam: absent: CVA tenderness (L), CVA tenderness (R) - Neurological Exam Neurological Exam: Alert, Awake, CN II-XII Intact, Oriented x3 - Psychiatric Exam Psychiatric exam: Normal Affect, Normal Mood Assessment and Plan - Assessment and Plan (Free Text) Assessment: 62F w/ PMH COPD, heroin abuse, HLD, anxiety presented to [facility] on 01/13 after being found obtunded by EMS s/p fall; currently admitted for COPD exacerbation and possible heroin withdrawal Plan: COPD Exacerbation: Most likely due to respiratory depression 2/2 opiate abuse vs medication non compliance vs infectious etiology No active airspace disease on CXR Wheezing, Prolonged expiratory phase, and crackles appreciated on exam; Patient saturated 92% on 5L NC in ED w/o any significant respiratory distress; post 125mg steroid in ED Does not use O2 at home ; Currently saturating well w/ 2L O2 via NC C/w Duonebs Q6 [facility] and Q2 PRN C/w Azithromycin 500mg Day 07/15 Started 40mg Prednisone QD Polysubstance abuse; Heroin/Alcohol COWS score 1 at this time; No active opiate withdrawal C/w Neurochecks Q4 C/w CIWA C/w Seizure precaution Anxiety C/w Ativan 0.5mg po q4 prn F/u outpatient psychiatrist Hyperlipidemia Lipid Panel wnl Continue home atorvastatin 20mg Decreased TSH Level Patient w/ low TSH Will follow up w/ FreeT3/ T4 levels Asymptomatic Cerebral contusion Abrasions on head/face appreciated; 3cm lac on head closed by ED prior to admission CT head (-) CT maxillofacial (-) C/w High fall risk protocol Hold DVT ppx Neurology consulted GI/DVT PPX: Protonix/ SCD Disposition - Continue management of COPD exacerbation at this time; patient actively wheezing. Patient seen, examined, and discussed w/ attending physician Dr. John Garcia DO PGY1 Internal Medicine Nutrition Director - Pager [phone] <Jn Lopez - Last Filed: 01/14/18 14:40> Objective - Vital Signs/Intake and Output Vital Signs (last 24 hours): Temp Pulse Resp BP Pulse Ox 97.5 F L 86 20 155/94 H 94 L 01/14/18 08:51 01/14/18 10:00 01/14/18 08:51 01/14/18 08:51 01/14/18 08:51 Intake and Output: 01/14/18 01/14/18 06:59 18:59 Intake Total 870 Balance 870 - Labs Labs: 01/14/18 06:20 01/14/18 06:20 Attending/Attestation - Attestation I have personally seen and examined this patient.: Yes I have fully participated in the care of the patient.: Yes I have reviewed all pertinent clinical information, including history, physical exam and plan: Yes Notes (Text): 01/14/18 14:37 Medical record note made by the resident after discussion with my direction and input after the patient was personally seen and examined by me. I have reviewed the chart and agree that the record accurately reflects by personal performance of the history, physical exam, data review, and medical decision-making, in the course for the patient. I have also personally directed the plan of care. 62 yrs old female with PMH of COPD,Chronic smoking and heroine abuse was admitted with fall due to opoid overdose.CT head is negative.There is no focal deficit.There is no sign of withdrawal at this time. COPD , contiue Neb/steroid and antibiotics. Prognosis is guarded.
--- NOTE | 2018-01-13 09:29 | CT ---
Date of service: 01/12/2018 PROCEDURE: CT HEAD WITHOUT CONTRAST. HISTORY: fall, heroine intox COMPARISON: None available. TECHNIQUE: Axial computed tomography images were obtained through the head/brain without intravenous contrast. Radiation dose: Total exam DLP = 829 mGy-cm. This CT exam was performed using one or more of the following dose reduction techniques: Automated exposure control, adjustment of the mA and/or kV according to patient size, and/or use of iterative reconstruction technique. FINDINGS: HEMORRHAGE: No intracranial hemorrhage. BRAIN: No mass effect or edema. Chronic microvascular changes and lacunar infarcts in the basal ganglia VENTRICLES: Unremarkable. No hydrocephalus. CALVARIUM: Unremarkable. PARANASAL SINUSES: Unremarkable as visualized. No significant inflammatory changes. MASTOID AIR CELLS: Unremarkable as visualized. No inflammatory changes. OTHER FINDINGS: The report concurs with the preliminary [facility] report IMPRESSION: No acute intracranial finding
--- NOTE | 2018-01-13 09:31 | CT ---
Date of service: 01/12/2018 PROCEDURE: CT MAXILLOFACIAL BONES WITHOUT CONTRAST HISTORY: facial injury, heroine intox, fall COMPARISON: None available. TECHNIQUE: Contiguous axial CT images of the maxillofacial bones were obtained. Coronal and sagittal reformats were generated. Radiation dose: Total exam DLP = 845 mGy-cm. This CT exam was performed using one or more of the following dose reduction techniques: Automated exposure control, adjustment of the mA and/or kV according to patient size, and/or use of iterative reconstruction technique. FINDINGS: NASAL BONES: Unremarkable. ORBITS: Unremarkable. PARANASAL SINUSES/ MASTOIDS: Clear. MAXILLA: Unremarkable. MANDIBLE/ TEMPOROMANDIBULAR JOINTS: Unremarkable. SKULL BASE: Unremarkable. TEMPORAL BONES: Middle ears and mastoid grossly unremarkable. OTHER FINDINGS: The report concurs with the preliminary [facility] report IMPRESSION: Unremarkable non contrast enhanced CT of the maxillofacial bones.
[2018-01-13] MEDS ORDERED: Enoxaparin 40 mg Syringe SC SCH (10:00)
[2018-01-13] MEDS: Azithromycin 500MG/NS 250ml 500 MG/250 ML BAG IVPB SCH (10:22)
--- NOTE | 2018-01-13 21:28 | CP.PCM.CON ---
History of Present Illness - History of Present Illness History of Present Illness: Neurology Consultation Note: Mrs. Martinez is a 62-year-old woman with a past medical history COPD not on home O2, heroin abuse, anxiety, HLD, presented to ED s/p fall 1 hour before arrival. According to the history, the patient had snorted a large amount of heroin prior to her fall. She hit her head and injured the left side of her forehead. EMS arrived and brought the patient to the ED. CT scan of the head did not show any acute intracranial injury. The patient states that she is "fine." Review of Systems - Review of Systems All systems: reviewed and no additional remarkable complaints except Past Patient History - Infectious Disease Hx of Infectious Diseases: None - Tetanus Immunizations Tetanus Immunization: Unknown - Past Social History Smoking Status: Heavy Smoker > 10 Cigarettes Daily - CARDIAC Hx Cardiac Disorders: Yes Hx Hypercholesterolemia: Yes - PULMONARY Hx Chronic Obstructive Pulmonary Disease (COPD): Yes - NEUROLOGICAL Hx Neurological Disorder: Yes Hx Seizures: Yes - HEENT Hx HEENT Problems: Yes (blurred vision) - RENAL Hx Chronic Kidney Disease: No - ENDOCRINE/METABOLIC Hx Endocrine Disorders: Yes Hx Hyperthyroidism: Yes - HEMATOLOGICAL/ONCOLOGICAL Hx Blood Disorders: No - INTEGUMENTARY Hx Dermatological Problems: No - MUSCULOSKELETAL/RHEUMATOLOGICAL Hx Musculoskeletal Disorders: No Hx Falls: Yes (s/p fall on the floor 01/12/18) - GASTROINTESTINAL Hx Gastrointestinal Disorders: Yes (APPENDICITIS WITH PERITONITIS-APPENDECTOMY) - GENITOURINARY/GYNECOLOGICAL Hx Genitourinary Disorders: Yes Hx Urinary Tract Infection: Yes - PSYCHIATRIC Hx Psychophysiologic Disorder: Yes (HEROINE ABUSE-SNORTS,SMOKES CIGARETTES) Hx Anxiety: Yes Hx Bipolar Disorder: Yes Hx Depression: Yes Hx Hallucinations: Yes Hx Panic Symptoms: Yes Hx Post Traumatic Stress Disorder: Yes - SURGICAL HISTORY Hx Surgeries: Yes Hx Appendectomy: Yes - ANESTHESIA Hx Anesthesia: Yes Hx Anesthesia Reactions: No Hx Malignant Hyperthermia: No Meds Allergies/Adverse Reactions: Allergies Allergy/AdvReac Type Severity Reaction Status Date / Time Penicillins Allergy RASH Verified 01/12/18 15:29 sulfur Allergy RASH Uncoded 01/12/18 15:29 - Medications Medications: Current Medications Albuterol/Ipratropium (Duoneb 3 Mg/0.5 Mg (3 Ml) Ud) 3 ml IH [id number] [facility] Last Admin: 01/13/18 13:52 Dose: 3 ml Albuterol/Ipratropium (Duoneb 3 Mg/0.5 Mg (3 Ml) Ud) 3 ml IH Q2H PRN PRN Reason: Shortness of Breath Atorvastatin Calcium (Lipitor) 20 mg PO DAILY [facility] Last Admin: 01/13/18 10:22 Dose: 20 mg Guaifenesin (Robitussin) 100 mg PO Q4H PRN PRN Reason: Cough Azithromycin (Zithromax 500mg In Ns) 500 mg in 250 mls @ 167 mls/hr IVPB DAILY [facility] PRN Reason: Protocol Last Admin: 01/13/18 10:22 Dose: 167 mls/hr Lorazepam (Ativan) 0.5 mg PO Q4 PRN; Protocol PRN Reason: Anxiety Pantoprazole Sodium (Protonix Ec Tab) 40 mg PO ACB [facility] Last Admin: 01/13/18 07:22 Dose: 40 mg Prednisone (Prednisone Tab) 40 mg PO DAILY [facility] Last Admin: 01/13/18 13:53 Dose: 40 mg Physical Exam - Neurological Exam Neurological exam: Alert, CN II-XII Intact, Normal Gait, Oriented x3, Reflexes Normal Results - Vital Signs Recent Vital Signs: Last Vital Signs Temp 98.0 F 01/13/18 18:00 Pulse 79 01/13/18 18:00 Resp 19 01/13/18 18:00 BP 113/78 01/13/18 18:00 Pulse Ox 97 01/13/18 18:00 - Labs Result Diagrams: 01/13/18 06:00 01/13/18 06:00 Labs: Laboratory Results - last 24 hr 01/13/18 01/13/18 01/13/18 06:00 06:00 06:00 WBC 9.3 D RBC 4.07 Hgb 11.8 L D Hct 36.6 MCV 89.9 MCH 29.0 MCHC 32.2 RDW 13.8 Plt Count 240 MPV 10.9 Gran % 83.9 H Lymph % (Auto) 11.7 L [place] % (Auto) 4.3 Eos % (Auto) 0.0 L Baso % (Auto) 0.1 Gran # 7.84 H Lymph # (Auto) 1.1 L [place] # (Auto) 0.4 Eos # (Auto) 0.0 Baso # (Auto) 0.01 Sodium 139 Potassium 4.8 Chloride 107 Carbon Dioxide 24 Anion Gap 12 BUN 14 Creatinine 0.5 L Est GFR ( Amer) > 60 Est GFR (Non-Af Amer) > 60 Random Glucose 89 Calcium 9.0 Phosphorus 3.6 Magnesium 1.9 Total Bilirubin 0.4 AST 22 ALT 25 Alkaline Phosphatase 62 Total Protein 6.3 Albumin 3.7 Globulin 2.6 Albumin/Globulin Ratio 1.4 Triglycerides 69 Cholesterol 124 L LDL Cholesterol Direct 39 HDL Cholesterol 68 H Thyroxine (T4) Free T3 pg/mL TSH 3rd Generation 0.12 L 01/13/18 01/13/18 13:37 13:37 WBC RBC Hgb Hct MCV MCH MCHC RDW Plt Count MPV Gran % Lymph % (Auto) [place] % (Auto) Eos % (Auto) Baso % (Auto) Gran # Lymph # (Auto) [place] # (Auto) Eos # (Auto) Baso # (Auto) Sodium Potassium Chloride Carbon Dioxide Anion Gap BUN Creatinine Est GFR ( Amer) Est GFR (Non-Af Amer) Random Glucose Calcium Phosphorus Magnesium Total Bilirubin AST ALT Alkaline Phosphatase Total Protein Albumin Globulin Albumin/Globulin Ratio Triglycerides Cholesterol LDL Cholesterol Direct HDL Cholesterol Thyroxine (T4) 6.6 Free T3 pg/mL 3.48 TSH 3rd Generation Assessment & Plan (1) Facial laceration Assessment and Plan: No intracranial injury noted on CT head. No further recommendations from a neurological perspective. Status: Acute Priority: Medium (2) Altered mental status Assessment and Plan: Likely due to intoxication. Please reconsult if the patient continues to exhibit these symptoms while sober. Status: Acute Priority: Medium
[2018-01-14] MEDS: Albuterol-Ipratrop 3 mg / 0.5 (3 ml) UD IH SCH ×2 (01:21→07:34)
[2018-01-14 07:00] LABS: BASO # 0.01 K/mm3 (0.0-2.0); BASO % 0.1 % (0.0-3.0); EOS % 0.5 % (1.5-5.0); GRAN # 6.07 (1.4-6.5); GRAN % 70.7 % (50.0-68.0); HEMOGLOBIN 12.7 g/dL (12.0-16.0); LYMPH % 23.2 % (22.0-35.0); MEAN CELL VOLUME 87.3 fl (80.0-105.0); MEAN CORPUSCULAR HEMOGLOBIN 29.3 pg (25.0-35.0); MEAN CORPUSCULAR HGB CONC 33.5 g/dl (31.0-37.0); MEAN PLATELET VOLUME 10.4 fl (7.0-11.0); MONO # 0.5 (0.1-0.6); MONO % 5.5 % (1.0-6.0); RBC 4.34 10^6/uL (3.5-6.1); RED CELL DISTRIBUTION WIDTH 13.5 % (11.5-14.5); WHITE BLOOD COUNT 8.6 10^3/ul (4.5-11.0)
[2018-01-14 08:00] LABS: ALB/GLOB RATIO 1.4 (1.1-1.8); ALBUMIN 3.8 g/dL (3.0-4.8); ALT/SGPT 13 U/L (7-56); AST/SGOT 19 U/L (14-36); BLOOD UREA NITROGEN 14 mg/dL (7-21); CALCIUM 9.3 mg/dL (8.4-10.5); GFR AFRICAN-AMERICAN > 60; GFR NON-AFRICAN AMERICAN > 60
[2018-01-14 08:52] VITALS: BP 155/94; RESP 20; TEMP 97.5; O2SAT 94
[2018-01-14] MEDS: Azithromycin 500MG/NS 250ml 500 MG/250 ML BAG IVPB SCH (10:36)
[2018-01-14] MEDS: Pantoprazole 40 mg EC Tab PO SCH (10:37)
[2018-01-14 11:43] VITALS: PULSE 86
--- NOTE | 2018-01-14 20:40 | CP.PCM.DIS ---
<Chava Garcia - Last Filed: 01/14/18 21:27> Provider - Provider Date of Admission: 01/12/18 19:50 Attending physician: Jn Lopez MD Primary care physician: Jn Snyder Consults: Neurology - Willy Montanez Time Spent in preparation of Discharge (in minutes): 40 Diagnosis - Discharge Diagnosis (1) COPD exacerbation Status: Acute Priority: High (2) Narcotic-induced respiratory depression Status: Acute Priority: High (3) Heroin abuse Status: Acute Priority: High (4) Cerebral contusion and laceration Status: Acute Priority: Medium (5) Hyperlipidemia Status: Chronic Priority: Low Hospital Course - Lab Results Lab Results: Most Recent Lab Values WBC 8.6 10^3/ul (4.5-11.0) 01/14/18 06:20 RBC 4.34 10^6/uL (3.5-6.1) 01/14/18 06:20 Hgb 12.7 g/dL (12.0-16.0) 01/14/18 06:20 Hct 37.9 % (36.0-48.0) 01/14/18 06:20 MCV 87.3 fl (80.0-105.0) 01/14/18 06:20 MCH 29.3 pg (25.0-35.0) 01/14/18 06:20 MCHC 33.5 g/dl (31.0-37.0) 01/14/18 06:20 RDW 13.5 % (11.5-14.5) 01/14/18 06:20 Plt Count 246 10^3/uL (120.0-450.0) 01/14/18 06:20 MPV 10.4 fl (7.0-11.0) 01/14/18 06:20 Gran % 70.7 % (50.0-68.0) H 01/14/18 06:20 Lymph % (Auto) 23.2 % (22.0-35.0) 01/14/18 06:20 Jessamine % (Auto) 5.5 % (1.0-6.0) 01/14/18 06:20 Eos % (Auto) 0.5 % (1.5-5.0) L 01/14/18 06:20 Baso % (Auto) 0.1 % (0.0-3.0) 01/14/18 06:20 Gran # 6.07 (1.4-6.5) 01/14/18 06:20 Lymph # (Auto) 2.0 (1.2-3.4) 01/14/18 06:20 Jessamine # (Auto) 0.5 (0.1-0.6) 01/14/18 06:20 Eos # (Auto) 0.0 (0.0-0.7) 01/14/18 06:20 Baso # (Auto) 0.01 K/mm3 (0.0-2.0) 01/14/18 06:20 pO2 104 mm/Hg (30-55) H 01/12/18 15:50 VBG pH 7.27 (7.32-7.43) L 01/12/18 15:50 VBG pCO2 55.0 (40-60) 01/12/18 15:50 VBG HCO3 25.3 mmol/l (21-28) 01/12/18 15:50 VBG Total CO2 27.0 mmol.L (22-28) 01/12/18 15:50 VBG O2 Sat (Calc) 98.6 % (40-65) H 01/12/18 15:50 VBG Base Excess -2.5 mmol/L (0.0-2.0) L 01/12/18 15:50 VBG Potassium 4.4 mmol/L (3.6-5.2) 01/12/18 15:50 Sodium 144.0 mmol/L (132-148) 01/12/18 15:50 Chloride 111.0 mmol/L (98-107) H 01/12/18 15:50 Glucose 129 mg/dl (65-105) H 01/12/18 15:50 Lactate 1.1 mmol/L (0.7-2.1) 01/12/18 15:50 FiO2 21.0 % 01/12/18 15:50 Sodium 139 mmol/L (132-148) 01/14/18 06:20 Potassium 3.7 mmol/L (3.6-5.0) 01/14/18 06:20 Chloride 107 mmol/L (98-107) 01/14/18 06:20 Carbon Dioxide 23 mmol/L (21-33) 01/14/18 06:20 Anion Gap 13 (10-20) 01/14/18 06:20 BUN 14 mg/dL (7-21) 01/14/18 06:20 Creatinine 0.5 mg/dl (0.7-1.2) L 01/14/18 06:20 Est GFR ( Amer) > 60 08 06:20 Est GFR (Non-Af Amer) > 60 01/14/18 06:20 Random Glucose 87 mg/dL (70-110) 01/14/18 06:20 Calcium 9.3 mg/dL (8.4-10.5) 01/14/18 06:20 Phosphorus 3.6 mg/dL (2.5-4.5) 01/13/18 06:00 Magnesium 1.9 mg/dL (1.7-2.2) 01/13/18 06:00 Total Bilirubin 0.4 mg/dL (0.2-1.3) 01/14/18 06:20 AST 19 U/L (14-36) 01/14/18 06:20 ALT 13 U/L (7-56) 01/14/18 06:20 Alkaline Phosphatase 62 U/L (38-126) 01/14/18 06:20 Total Creatine Kinase 45 U/L (35-230) 01/12/18 15:50 Total Protein 6.6 g/dL (5.8-8.3) 01/14/18 06:20 Albumin 3.8 g/dL (3.0-4.8) 01/14/18 06:20 Globulin 2.8 gm/dL 01/14/18 06:20 Albumin/Globulin Ratio 1.4 (1.1-1.8) 01/14/18 06:20 Triglycerides 69 mg/dL (35-160) 01/13/18 06:00 Cholesterol 124 mg/dL (130-200) L 01/13/18 06:00 LDL Cholesterol Direct 39 mg/dL (0-129) 01/13/18 06:00 HDL Cholesterol 68 mg/dL (29-60) H 01/13/18 06:00 Thyroxine (T4) 6.6 ug/dL (5.5-11.0) 01/13/18 13:37 Free T3 pg/mL 3.48 pg/mL (2.77-5.27) 01/13/18 13:37 TSH 3rd Generation 0.12 mIU/mL (0.46-4.68) L 01/13/18 06:00 Venous Blood Potassium 4.4 mmol/L (3.6-5.2) 01/12/18 15:50 Salicylates < 1 mg/dL (2.0-20.0) L 01/12/18 15:50 Acetaminophen < 10.0 ug/ml (10.0-20.0) L 01/12/18 15:50 Alcohol, Quantitative < 10 mg/dL (0-10) 01/12/18 15:50 - Hospital Course Hospital Course: Chava Garcia DO PGY1 Internal Medicine Workforce Management Manager -Hospital Discharge Summary HPI: 62 y/o F with pmhx of COPD not on home O2, heroin abuse, anxiety, HLD, presented to s/p fall 1 hour before arrival. Pt had landed on floor and struck her L forehead to the ground. She denied any loss of consciousness however does not remember many of the details after she had fell. She reports that she had snorted 4 bags of heroin around 2pm. She reports that she regularly snorts ~4 bags heroin daily, but snorted a large amount at once today. She denies use of IV administration. She denies symptoms of withdrawal. She was found by EMS on the street with scattered wheezing bilaterally and found intoxicated. Pt does not remember if she received narcan by EMS on the way to the hospital. Upon interview, pt has no complaints and claims she is "fine." She reports occasional cough but denies other respiratory issues. Pt was saturating at ~92% on 4L NC during ED visit. CXR, CT Head, and CT Maxillofacial had no acute findings on official reads. Hospital Course: Patient was evaluated after admission; noted to have minimal shortness of breath, and some cough. Exam findings revealed she had some diffuse wheezing w/ ronchorus sounds. Patient was started on PO prednisone 40mg QD as well as duoneb treatments Q6H scheduled and Q2H PRN. COWS score for opiate withdrawal remained <1 indicating no acute withdrawal symptoms throughout hospital course. Morning prior to discharge patient was seen at bedside, and voiced minimal to no respiratory complaints; tolerated PO steroid therapy well. Patient was counseled on necessity of tobacco cessation and opiate cessation. On exam wheezing had subsided; and patient was determined to be medically stable for discharge. 12 system ROS was otherwise negative. Patient was discharged home with the following instructions: - You were admitted for COPD exacerbation and Opiate abuse - Please follow up with your primary care doctor, Dr. Pan within 7 days of discharge - Please continue taking your home medications as prescribed - Please start taking prednisone 40mg once a day for 3 days - Please quit smoking - Heroin dependence, stop abusing heroin - If you need help managing your opiate dependence, please schedule an appointment with our outpatient psychiatry clinic - Please return to the nearest emergency department if your symptoms begin worsening Patient is medically optimized for discharge at this time. - Date & Time of H&P Date of H&P: 01/12/18 Time of H&P: 22:45 Discharge Exam - Head Exam Head Exam: NORMOCEPHALIC Additional comments: Abrasions on head and face - Eye Exam Eye Exam: EOMI, Normal appearance, PERRL - ENT Exam ENT Exam: Mucous Membranes Moist - Respiratory Exam Respiratory Exam: Clear to PA & Lateral, Rhonchi, NORMAL BREATHING PATTERN. absent: Wheezes, Respiratory Distress - Cardiovascular Exam Cardiovascular Exam: RRR, +S1, +S2 - GI/Abdominal Exam GI & Abdominal Exam: Normal Bowel Sounds, Soft, Unremarkable. absent: Tenderness - Extremities Exam Extremities exam: pedal pulses present (2+ TP/DP BL ) - Back Exam Back exam: absent: CVA tenderness (L), CVA tenderness (R) - Neurological Exam Neurological exam: Alert, CN II-XII Intact, Oriented x3 - Psychiatric Exam Psychiatric exam: Normal Affect, Normal Mood - Skin Skin Exam: Dry, Intact, Normal Color, Warm Discharge Plan - Discharge Medications Prescriptions: predniSONE [predniSONE Tab] 40 mg PO DAILY #3 tab - Follow Up Plan Condition: STABLE Disposition: HOME/ ROUTINE Instructions: Drug Abuse and Drug Addiction (DC), Laceration Repair With Stitches (DC), Exacerbation of COPD (DC) Additional Instructions: - You were admitted for COPD exacerbation and Opiate abuse - Please follow up with your primary care doctor, Dr. Pan within 7 days of discharge - Please continue taking your home medications as prescribed - Please start taking prednisone 40mg once a day for 3 days - Please quit smoking - Heroin dependence, stop abusing heroin - If you need help managing your opiate dependence, please schedule an appointment with our outpatient psychiatry clinic - Please return to the nearest emergency department if your symptoms begin worsening <Jn Lopez - Last Filed: 01/15/18 08:36> Provider - Provider Date of Admission: 01/12/18 19:50 Attending physician: Jn Lopez MD Hospital Course - Lab Results Lab Results: Most Recent Lab Values WBC 8.6 10^3/ul (4.5-11.0) 01/14/18 06:20 RBC 4.34 10^6/uL (3.5-6.1) 01/14/18 06:20 Hgb 12.7 g/dL (12.0-16.0) 01/14/18 06:20 Hct 37.9 % (36.0-48.0) 01/14/18 06:20 MCV 87.3 fl (80.0-105.0) 01/14/18 06:20 MCH 29.3 pg (25.0-35.0) 01/14/18 06:20 MCHC 33.5 g/dl (31.0-37.0) 01/14/18 06:20 RDW 13.5 % (11.5-14.5) 01/14/18 06:20 Plt Count 246 10^3/uL (120.0-450.0) 01/14/18 06:20 MPV 10.4 fl (7.0-11.0) 01/14/18 06:20 Gran % 70.7 % (50.0-68.0) H 01/14/18 06:20 Lymph % (Auto) 23.2 % (22.0-35.0) 01/14/18 06:20 Jessamine % (Auto) 5.5 % (1.0-6.0) 01/14/18 06:20 Eos % (Auto) 0.5 % (1.5-5.0) L 01/14/18 06:20 Baso % (Auto) 0.1 % (0.0-3.0) 01/14/18 06:20 Gran # 6.07 (1.4-6.5) 01/14/18 06:20 Lymph # (Auto) 2.0 (1.2-3.4) 01/14/18 06:20 Jessamine # (Auto) 0.5 (0.1-0.6) 01/14/18 06:20 Eos # (Auto) 0.0 (0.0-0.7) 01/14/18 06:20 Baso # (Auto) 0.01 K/mm3 (0.0-2.0) 01/14/18 06:20 pO2 104 mm/Hg (30-55) H 01/12/18 15:50 VBG pH 7.27 (7.32-7.43) L 01/12/18 15:50 VBG pCO2 55.0 (40-60) 01/12/18 15:50 VBG HCO3 25.3 mmol/l (21-28) 01/12/18 15:50 VBG Total CO2 27.0 mmol.L (22-28) 01/12/18 15:50 VBG O2 Sat (Calc) 98.6 % (40-65) H 01/12/18 15:50 VBG Base Excess -2.5 mmol/L (0.0-2.0) L 01/12/18 15:50 VBG Potassium 4.4 mmol/L (3.6-5.2) 01/12/18 15:50 Sodium 144.0 mmol/L (132-148) 01/12/18 15:50 Chloride 111.0 mmol/L (98-107) H 01/12/18 15:50 Glucose 129 mg/dl (65-105) H 01/12/18 15:50 Lactate 1.1 mmol/L (0.7-2.1) 01/12/18 15:50 FiO2 21.0 % 01/12/18 15:50 Sodium 139 mmol/L (132-148) 01/14/18 06:20 Potassium 3.7 mmol/L (3.6-5.0) 01/14/18 06:20 Chloride 107 mmol/L (98-107) 01/14/18 06:20 Carbon Dioxide 23 mmol/L (21-33) 01/14/18 06:20 Anion Gap 13 (10-20) 01/14/18 06:20 BUN 14 mg/dL (7-21) 01/14/18 06:20 Creatinine 0.5 mg/dl (0.7-1.2) L 01/14/18 06:20 Est GFR ( Amer) > 60 01/14/18 06:20 Est GFR (Non-Af Amer) > 60 01/14/18 06:20 Random Glucose 87 mg/dL (70-110) 01/14/18 06:20 Calcium 9.3 mg/dL (8.4-10.5) 01/14/18 06:20 Phosphorus 3.6 mg/dL (2.5-4.5) 01/13/18 06:00 Magnesium 1.9 mg/dL (1.7-2.2) 01/13/18 06:00 Total Bilirubin 0.4 mg/dL (0.2-1.3) 01/14/18 06:20 AST 19 U/L (14-36) 01/14/18 06:20 ALT 13 U/L (7-56) 01/14/18 06:20 Alkaline Phosphatase 62 U/L (38-126) 01/14/18 06:20 Total Creatine Kinase 45 U/L (35-230) 01/12/18 15:50 Total Protein 6.6 g/dL (5.8-8.3) 01/14/18 06:20 Albumin 3.8 g/dL (3.0-4.8) 01/14/18 06:20 Globulin 2.8 gm/dL 01/14/18 06:20 Albumin/Globulin Ratio 1.4 (1.1-1.8) 01/14/18 06:20 Triglycerides 69 mg/dL (35-160) 01/13/18 06:00 Cholesterol 124 mg/dL (130-200) L 01/13/18 06:00 LDL Cholesterol Direct 39 mg/dL (0-129) 01/13/18 06:00 HDL Cholesterol 68 mg/dL (29-60) H 01/13/18 06:00 Thyroxine (T4) 6.6 ug/dL (5.5-11.0) 01/13/18 13:37 Free T3 pg/mL 3.48 pg/mL (2.77-5.27) 01/13/18 13:37 TSH 3rd Generation 0.12 mIU/mL (0.46-4.68) L 01/13/18 06:00 Venous Blood Potassium 4.4 mmol/L (3.6-5.2) 01/12/18 15:50 Salicylates < 1 mg/dL (2.0-20.0) L 01/12/18 15:50 Acetaminophen < 10.0 ug/ml (10.0-20.0) L 01/12/18 15:50 Alcohol, Quantitative < 10 mg/dL (0-10) 01/12/18 15:50 Attending/Attestation - Attestation I have personally seen and examined this patient.: Yes I have fully participated in the care of the patient.: Yes I have reviewed all pertinent clinical information, including history, physical exam and plan: Yes Notes (Text): 01/15/18 08:32 Medical record note made by the resident after discussion with my direction and input after the patient was personally seen and examined by me. I have reviewed the chart and agree that the record accurately reflects by personal performance of the history, physical exam, data review, and medical decision-making, in the course for the patient. I have also personally directed the plan of care. 62 yrs old female with PMH of COPD,Chronic smoking and heroine abuse was admitted with fall due to opioid overdose.CT head was negative.There is no focal deficit.There is no sign of withdrawal at this time.Patient is COPD , has improved.Patient is not wheezing.She is on room air.She will be discharged home on Prednisone 40 mg po daily for total 5 days. Issue of ongoing alcohol and drug abuse was discussed in detail with the patient. Prognosis is guarded. Management plan was discussed in detail with patient. Education was provided.
== END 2018-01-14 13:54 | disposition home or self-care (01) ==
LOC: ED 15:26 → ERH 19:50 → 3RSO 22:20
PROVIDERS: ADMIT Hospitalist; ATTEND Internal Medicine
DX: T40.1X1A Poisoning by heroin, accidental (unintentional), initial encounter (principal); G93.89 Other specified disorders of brain; T40.605A Adverse effect of unspecified narcotics, initial encounter; S01.81XA Laceration without foreign body of other part of head, initial encounter; S06.339A Contusion and laceration of cerebrum, unspecified, with loss of consciousness of unspecified duration, initial encounter; W19.XXXA Unspecified fall, initial encounter; J44.1 Chronic obstructive pulmonary disease with (acute) exacerbation; F43.10 Post-traumatic stress disorder, unspecified; F31.9 Bipolar disorder, unspecified; F41.0 Panic disorder [episodic paroxysmal anxiety]; E11.9 Type 2 diabetes mellitus without complications; E78.00 Pure hypercholesterolemia, unspecified; E78.5 Hyperlipidemia, unspecified; I10 Essential (primary) hypertension; R09.02 Hypoxemia; F41.9 Anxiety disorder, unspecified; Z87.01 Personal history of pneumonia (recurrent); Z87.440 Personal history of urinary (tract) infections; Z87.891 Personal history of nicotine dependence; Z90.49 Acquired absence of other specified parts of digestive tract; Z91.14 Patient's other noncompliance with medication regimen; Z23 Encounter for immunization
CPT/HCPCS: 36415; 70450; 70486; 71045; 80053; 80061; 80320; 80329; 82550; 82803; 83735; 84100; 84436; 84443; 84481; 85025; 90471; 90715; 93005; 94640; 94760; 96360; 96374; 97116; 97161; 99285; G0378; G8978; G8979; G8980; J0456; J2930; J7030; J7040

== ENCOUNTER 2018-04-23 10:30 | Emergency (ER) | payer MEDICAID ==
[2018-04-23 10:31] VITALS: BMI 23.8
--- NOTE | 2018-04-23 10:47 | ED PDOC ---
Arrival/HPI - General Chief Complaint: Altered Mental Status Time Seen by Provider: 04/23/18 10:31 Historian: Patient, EMS EM Caveat: Altered Mental Status - Critical Care Critical Care Minutes: 30 minutes - History of Present Illness Narrative History of Present Illness (Text): 04/23/18 10:42 62 year old female whose past medical history includes, seizures, ETOH abuse, opioid use, COPD presents to the emergency department by EMS. Of note EMS reports patient was found on the street between a curb and a car. She was found unresponsive in a fixed posture with curled fingers, with eyes rolled up, and pinpoint pupils. They state once they found her ID she was slightly responsive to her name. HPI and ROS are limited due to patient altered mental status. PMD: Unknown Time/Duration: Prior to Arrival Symptom Course: Improving Activities at Onset: Light Context: Street Past Medical History - Provider Review Nursing Documentation Reviewed: Yes - Past History Past History: No Previous - Infectious Disease Hx of Infectious Diseases: None - Tetanus Immunization Tetanus Immunization: Unknown - Cardiac Hx Cardiac Disorders: Yes - Pulmonary Hx Chronic Obstructive Pulmonary Disease (COPD): Yes - Neurological Hx Neurological Disorder: Yes Hx Seizures: Yes - HEENT Hx HEENT Disorder: Yes (blurred vision) - Renal Hx Renal Disorder: No - Endocrine/Metabolic Hx Endocrine Disorders: Yes Hx Hyperthyroidism: Yes - Hematological/Oncological Hx Blood Disorders: No - Integumentary Hx Dermatological Disorder: No - Musculoskeletal/Rheumatological Hx Musculoskeletal Disorders: No Hx Falls: Yes (s/p fall on the floor 01/12/18) - Gastrointestinal Hx Gastrointestinal Disorders: Yes (APPENDICITIS WITH PERITONITIS-APPENDECTOMY) - Genitourinary/Gynecological Hx Genitourinary Disorders: Yes Hx Urinary Tract Infection: Yes - Psychiatric Hx Psychophysiologic Disorder: Yes (HEROINE ABUSE-SNORTS,SMOKES CIGARETTES) Hx Anxiety: Yes Hx Bipolar Disorder: Yes Hx Depression: Yes Hx Hallucinations: Yes Hx Panic Disorder: Yes Hx Post Traumatic Stress Disorder: Yes Hx Substance Use: Yes (HEROINE ABUSE.MULTIPLE DRUG PROGRAMS.LAST SNORTED 6 BAGS.DENIES IVDU) - Surgical History Hx Appendectomy: Yes - Anesthesia Hx Anesthesia: Yes Hx Anesthesia Reactions: No Hx Malignant Hyperthermia: No Family/Social History - Physician Review Nursing Documentation Reviewed: Yes Family/Social History: No Known Family HX Smoking Status: Heavy Smoker > 10 Cigarettes Daily Hx Alcohol Use: No Frequency of alcohol use: Daily Hx Substance Use: Yes (HEROINE ABUSE.MULTIPLE DRUG PROGRAMS.LAST SNORTED 6 BAGS.DENIES IVDU) Substance used: heroin Allergies/Home Meds Allergies/Adverse Reactions: Allergies Penicillins Allergy (Verified 01/12/18 15:29) RASH sulfur Allergy (Uncoded 01/12/18 15:29) RASH Home Medications: Home Meds Medication Instructions Recorded Confirmed ARIPiprazole [Abilify] 5 mg PO DAILY 10/09/17 01/12/18 Atorvastatin [Lipitor] 20 mg PO DAILY 10/09/17 01/12/18 Cholecalciferol [Vitamin D 1000 IU] 1,000 iu PO DAILY 10/09/17 01/12/18 Fluticasone/Vilanterol [Breo 1 puff INH BID 10/09/17 01/12/18 Ellipta 100-25 Mcg INH] Mirtazapine [Remeron] 30 mg PO DAILY 10/09/17 01/12/18 Ropinirole HCl [Requip] 5 mg PO HS 10/09/17 01/12/18 Vitamin B Complex [Balance B-100] 1 tab PO DAILY 10/09/17 01/12/18 busPIRone [Buspar] 7.5 mg PO DAILY 10/09/17 01/12/18 hydrOXYzine HCl [Atarax] 50 mg PO DAILY 10/09/17 01/12/18 Review of Systems - Review of Systems Systems not reviewed;Unavailable: Altered Mental Status Physical Exam - Physical Exam Physical Exam Limitations: Altered Mental Status Vital Signs Reviewed: Yes Temperature: Afebrile Blood Pressure: Normal Pulse: Tachycardic Respiratory Rate: Normal Appearance: Positive for: Well-Appearing, Non-Toxic, Comfortable Pain Distress: None Mental Status: Positive for: Confused, other (awake, responds to name, says she knows where she is) - Systems Exam Head: Present: Atraumatic, Normocephalic, Other (no trauma) Pupils: Present: PERRL (2mm) Extroacular Muscles: Present: EOMI Conjunctiva: Present: Normal Mouth: Present: Dry Neck: Present: Normal Range of Motion Respiratory/Chest: Present: Good Air Exchange, Wheezes. No: Respiratory Distress, Accessory Muscle Use, Retracting Cardiovascular: Present: Regular Rate and Rhythm, Normal S1, S2. No: Murmurs Abdomen: No: Tenderness, Distention, Peritoneal Signs Back: Present: Normal Inspection. No: Midline Tenderness Upper Extremity: Present: Normal Inspection. No: Cyanosis, Edema Lower Extremity: Present: Normal Inspection. No: Edema Neurological: Present: GCS=15, CN II-XII Intact, Motor Func Grossly Intact (moving all extremities), Normal Sensory Function (sensation intact) Skin: Present: Warm, Dry, Normal Color. No: Rashes Psychiatric: Present: Other (awake but confused, altered mental status) Medical Decision Making ED Course and Treatment: 04/23/18 10:42 Impression: 62 year old female who presents to the emergency department by EMS for altered mental status. Differential Diagnosis included but are not limited to: Opioid abuse ETOH withdrawal Electrolyte withdrawal COPD Exacerbation Plan: -- VBG -- CT of cervical spine w/o contrast -- Head CT w/o contrast -- Labs -- EKG -- Chest X-ray -- Duoneb -- Urinalysis -- Reassess and disposition Prior Visits: Notes and results from previous visits were reviewed. Progress Notes: 04/23/18 10:46 Sinus tachycardia at 106bpm with normal intervals and no ST elevations. 04/23/18 12:54 CT of cervical spine w/o contrast reviewed, shows: Dictator: Rex Stein MD IMPRESSION: Unremarkable CT of the cervical spine. Head CT reviewed, shows: Dictator: Rex Stein MD IMPRESSION: No acute intracranial findings 04/23/18 13:09 Chest X-ray reviewed, shows: IMPRESSION: No active disease. 04/23/18 13:57 Patient was placed on BiPAP during her state. She was given Narcan 0.4 IVP which woke her up quickly. She was treated with Duonebs and Solumedrol. On re-evaluation, patient feels better and is in no acute distress. Lungs are clear. No wheezing, rhonchi or rales. She denies any shortness of breathe. She is drinking fluids in ED without any vomiting. She was removed off of BiPAP after VBG/ABG improved. pH normalized and PCO2 is improved. Oxy sat normal. She was given a referral list for a detox center because she doesn't want to be admitted to a detox. She wants to go home now and does not want to wait any longer. She is stable and improved for discharge. I have discussed the results and plan with the patient, who expresses understanding. Patient in agreement with plan to be discharged home. Patient is stable for discharge. Patient was instructed to follow up with physician or return if symptoms worsen or new concerning symptoms arise. - Critical Care Critical Care Minutes: 30 minutes - Lab Interpretations I have reviewed the lab results: Yes - EKG Interpretation Interpreted by ED Physician: Yes Type: 12 lead EKG - Scribe Statement The provider has reviewed the documentation as recorded by the Lala Mcneal Provider Scribe Attestation: All medical record entries made by the Scribe were at my direction and personally dictated by me. I have reviewed the chart and agree that the record accurately reflects my personal performance of the history, physical exam, medical decision making, and the department course for this patient. I have also personally directed, reviewed, and agree with the discharge instructions and di sposition. Disposition/Present on Arrival - Present on Arrival Any Indicators Present on Arrival: No History of DVT/PE: No History of Uncontrolled Diabetes: No Urinary Catheter: No History of Decub. Ulcer: No History Surgical Site Infection Following: None - Disposition Have Diagnosis and Disposition been Completed?: Yes Diagnosis: Opiate overdose, COPD exacerbation Disposition: HOME/ ROUTINE Disposition Time: 13:57 Patient Plan: Discharge Patient Problems: Current Active Problems Problem Status Onset COPD exacerbation Acute Opiate overdose Acute Condition: IMPROVED Discharge Instructions (ExitCare): COPD Including Emphysema (DC), Narcotic Overdose (DC) Additional Instructions: SWATI MANSFIELD, thank you for letting us take care of you today. Your provider was Mark Espinosa DO and you were treated for Opiate Overdose, COPD. The emergency medical care you received today was directed at your acute symptoms. If you were prescribed any medication, please fill it and take as directed. It may take several days for your symptoms to resolve. Return to the Emergency Department if your symptoms worsen, do not improve, or if you have any other problems. Please contact your doctor or call one of the physicians/clinics you have been referred to that are listed on the Patient Visit Information form that is included in your discharge packet. Bring any paperwork you were given at discharge with you along with any medications you are taking to your follow up visit. Our treatment cannot replace ongoing medical care by a primary care provider outside of the emergency department. Thank you for allowing the [facility] team to be part of your care today. If you had an X-Ray or CT scan: A Radiologist will review the ED reading if any change in treatment is needed we will contact you. If you had a blood, urine, or wound culture: It will take several days for the results, if any change in treatment is needed we will contact you. If you had an STI test: It will take 48 hours for the results. Please call after 1 week if you have not heard back. Prescriptions: Albuterol HFA [Ventolin HFA 90 mcg/actuation (8 g)] 2 puff IH Q4 #1 puff predniSONE [predniSONE Tab] 40 mg PO DAILY #8 tab Referrals: Non [facility] Provider, [Non-Staff] - Follow up with primary Forms: [employer] (Filipino), WORK NOTE
[2018-04-23] MEDS ORDERED: Albuterol-Ipratrop 3 mg / 0.5 (3 ml) UD IH STA ×2 (10:48→12:49)
[2018-04-23 10:54] VITALS: RESP 18; TEMP 98.6; O2SAT 100
[2018-04-23 11:09] LABS: BASO # 0.01 K/mm3 (0.0-2.0); BASO % 0.1 % (0.0-3.0); EOS # 0.2 (0.0-0.7); EOS % 3.1 % (1.5-5.0); GRAN # 3.85 (1.4-6.5); GRAN % 57.3 % (50.0-68.0); LYMPH # 2.3 (1.2-3.4); LYMPH % 34.7 % (22.0-35.0); MEAN CELL VOLUME 91.4 fl (80.0-105.0); MEAN CORPUSCULAR HEMOGLOBIN 30.1 pg (25.0-35.0); MEAN CORPUSCULAR HGB CONC 32.9 g/dl (31.0-37.0); MEAN PLATELET VOLUME 9.9 fl (7.0-11.0); MONO # 0.3 (0.1-0.6); MONO % 4.8 % (1.0-6.0); RBC 4.65 10^6/uL (3.5-6.1); RED CELL DISTRIBUTION WIDTH 13.7 % (11.5-14.5); VENOUS BLOOD GAS BASE EXCESS -5.7 mmol/L (0.0-2.0); VENOUS BLOOD GAS PO2 59 mm/Hg (30-55); WHITE BLOOD COUNT 6.7 10^3/uL (4.5-11.0)
[2018-04-23 11:17] LABS: INR 0.96; PARTIAL THROMBOPLASTIN TIME 27.6 Seconds (25.1-36.5); VENOUS BLOOD PH 7.12 (7.32-7.43)
[2018-04-23 11:22] LABS: ALB/GLOB RATIO 1.4 (1.1-1.8); ALBUMIN 4.3 g/dL (3.0-4.8); ALT/SGPT 31 U/L (7-56); AST/SGOT 28 U/L (14-36); BLOOD UREA NITROGEN 18 mg/dL (7-21); CALCIUM 9.1 mg/dL (8.4-10.5); GFR NON-AFRICAN AMERICAN > 60
[2018-04-23 11:24] LABS: ACETAMINOPHEN < 10.0 ug/ml (10.0-20.0); SALICYLATE < 1 mg/dL (2.0-20.0)
[2018-04-23 11:24] LABS: PH,URINE 5.5 (4.7-8.0); URINE BILIRUBIN NEGATIVE (NEGATIVE); URINE BLOOD NEGATIVE (NEGATIVE); URINE GLUCOSE (UA) NEGATIVE (NEGATIVE); URINE LEUKOCYTE ESTERASE NEGATIVE Leu/uL (NEGATIVE); URINE PROTEIN 30 mg/dL (<30 mg/dL); URINE UROBILINOGEN 0.2 E.U./dL (<1 E.U./dL)
[2018-04-23 11:27] LABS: URINE APPEARANCE CLEAR (CLEAR); URINE COLOR YELLOW (YELLOW)
[2018-04-23 11:31] LABS: TROPONIN I < 0.01 ng/mL
[2018-04-23 11:32] LABS: URINE BACTERIA MANY (NEG); URINE RBC 0 - 2 /hpf (0-2)
[2018-04-23 11:50] LABS: BARBITURATES, UR NEGATIVE (NEGATIVE); BENZODIAZEPINES, UR NEGATIVE (NEGATIVE); OPIATES, UR POSITIVE (NEGATIVE); PHENCYCLIDINE, UR NEGATIVE (NEGATIVE)
[2018-04-23 12:29] LABS: ARTERIAL BLOOD GAS HCO3 23.5 mmol/L (21-28); ARTERIAL BLOOD GAS O2 SAT 98.6 % (95-98); ARTERIAL BLOOD GAS PCO2 63 mm/Hg (35-45); ARTERIAL BLOOD GAS TCO2 25.4 mmol.L (22-28)
[2018-04-23 12:32] LABS: ARTERIAL BLOOD GAS PH 7.18 (7.35-7.45)
--- NOTE | 2018-04-23 12:39 | CT ---
Date of service: 04/23/2018 PROCEDURE: CT HEAD WITHOUT CONTRAST. HISTORY: altered mental status COMPARISON: 01/12/2018 TECHNIQUE: Axial computed tomography images were obtained through the head/brain without intravenous contrast. Radiation dose: Total exam DLP = 1039.67 mGy-cm. This CT exam was performed using one or more of the following dose reduction techniques: Automated exposure control, adjustment of the mA and/or kV according to patient size, and/or use of iterative reconstruction technique. FINDINGS: HEMORRHAGE: No intracranial hemorrhage. BRAIN: No mass effect or edema. No atrophy or chronic microvascular ischemic changes. VENTRICLES: Unremarkable. No hydrocephalus. CALVARIUM: Unremarkable. PARANASAL SINUSES: Unremarkable as visualized. No significant inflammatory changes. MASTOID AIR CELLS: Unremarkable as visualized. No inflammatory changes. OTHER FINDINGS: None. IMPRESSION: No acute intracranial findings
--- NOTE | 2018-04-23 12:42 | CT ---
Date of service: 04/23/2018 PROCEDURE: CT Cervical Spine without contrast HISTORY: r/o fx COMPARISON: None available. TECHNIQUE: Axial computed tomography images were obtained of the cervical spine without the use of intravenous contrast. Coronal and sagittal reformatted images were created and reviewed. Radiation dose: Total exam DLP = 293.12 mGy-cm. This CT exam was performed using one or more of the following dose reduction techniques: Automated exposure control, adjustment of the mA and/or kV according to patient size, and/or use of iterative reconstruction technique. FINDINGS: VERTEBRAE: No fracture. Normal alignment. No destructive bony lesion. DISCS/SPINAL CANAL/NEURAL FORAMINA: No significant central canal or neural foraminal stenosis. Discs heights are grossly preserved. PARASPINAL SOFT TISSUES: Unremarkable. OTHER FINDINGS: None. IMPRESSION: Unremarkable CT of the cervical spine.
--- NOTE | 2018-04-23 12:43 | CARD ---
APPROVED REPORT Date of service: 04/23/2018 EKG Measurement Heart [id number] NJ 146P81 [id number] <Conclusion> Sinus tachycardia Nonspecific ST abnormality Abnormal ECG
[2018-04-23] MEDS ORDERED: Sodium Chloride 0.9% 1,000 ML IV STA (12:49)
[2018-04-23] MEDS ORDERED: Naloxone 0.4 mg/ml Inj (Adult) IVP STA (12:50)
--- NOTE | 2018-04-23 13:08 | RAD ---
Date of service: 04/23/2018 HISTORY: altered mental status COMPARISON: 01/12/2018 FINDINGS: LUNGS: No active pulmonary disease. PLEURA: No significant pleural effusion identified, no pneumothorax apparent. CARDIOVASCULAR: No aortic atherosclerotic calcification present. Normal cardiac size. No pulmonary vascular congestion. OSSEOUS STRUCTURES: No significant abnormalities. VISUALIZED UPPER ABDOMEN: Normal. OTHER FINDINGS: None. IMPRESSION: No active disease.
[2018-04-23 13:46] LABS: ARTERIAL BLOOD GAS HEMOGLOBIN 13.4 g/dL (11.7-17.4); ARTERIAL BLOOD GAS O2 CAPACITY 18.3 mL/dl (16-24); ARTERIAL BLOOD GAS O2 CONTENT 17.8 ML/dl (15-23); ARTERIAL BLOOD GAS O2 SAT 97.5 % (95-98); ARTERIAL BLOOD GAS PCO2 38 mm/Hg (35-45); ARTERIAL BLOOD GAS PH 7.35 (7.35-7.45); ARTERIAL BLOOD GAS TCO2 22.2 mmol.L (22-28)
[2018-04-23 13:52] VITALS: BP 142/95; PULSE 89
== END 2018-04-23 14:17 | disposition home or self-care (01) ==
LOC: ED 10:30
DX: T40.601A Poisoning by unspecified narcotics, accidental (unintentional), initial encounter (principal); Y92.9 Unspecified place or not applicable; J44.1 Chronic obstructive pulmonary disease with (acute) exacerbation; F17.210 Nicotine dependence, cigarettes, uncomplicated
CPT/HCPCS: 36600; 70450; 71045; 72125; 80053; 80320; 80324; 80329; 80345; 80346; 80349; 80353; 80358; 80361; 81001; 82550; 82803; 82948; 83615; 83735; 83992; 84100; 84484; 85025; 85610; 85730; 93005; 94640; 96374; 96375; 99291; J2310; J2930; J7030

== ENCOUNTER 2018-05-08 15:50 | Emergency (ER) | payer MEDICAID ==
[2018-05-08 16:05] VITALS: BMI 22.6
[2018-05-08 16:08] VITALS: TEMP 97.9
[2018-05-08] MEDS ORDERED: Naloxone 0.4 mg/ml Inj (Adult) IVP ONE (16:11)
--- NOTE | 2018-05-08 16:20 | ED PDOC ---
Arrival/HPI - General Chief Complaint: Altered Mental Status Time Seen by Provider: 05/08/18 15:52 Historian: Patient - History of Present Illness Narrative History of Present Illness (Text): 05/08/18 16:08 62 year old female, with past medical history of COPD not on home O2, heroin abuse, anxiety, and HLD, presents to the Emergency department via EMS for evaluation of unresponsiveness since prior to arrival. As per EMS, patient was found unresponsive on the street by a bystander, who subsequently called 911. Patient does not have any obvious injuries and was not witnessed by anyone at baseline. HPI and ROS limited secondary to patient's clinical condition. Time/Duration: Prior to Arrival Symptom Course: Unchanged Activities at Onset: Light Context: Street Past Medical History - Provider Review Nursing Documentation Reviewed: Yes - Past History Past History: No Previous - Infectious Disease Hx of Infectious Diseases: None - Tetanus Immunization Tetanus Immunization: Unknown - Cardiac Hx Cardiac Disorders: Yes - Pulmonary Hx Chronic Obstructive Pulmonary Disease (COPD): Yes - Neurological Hx Neurological Disorder: Yes Hx Seizures: Yes - HEENT Hx HEENT Disorder: Yes (blurred vision) - Renal Hx Renal Disorder: No - Endocrine/Metabolic Hx Endocrine Disorders: Yes Hx Hyperthyroidism: Yes - Hematological/Oncological Hx Blood Disorders: No - Integumentary Hx Dermatological Disorder: No - Musculoskeletal/Rheumatological Hx Musculoskeletal Disorders: No Hx Falls: Yes (s/p fall on the floor 01/12/18) - Gastrointestinal Hx Gastrointestinal Disorders: Yes (APPENDICITIS WITH PERITONITIS-APPENDECTOMY) - Genitourinary/Gynecological Hx Genitourinary Disorders: Yes Hx Urinary Tract Infection: Yes - Psychiatric Hx Psychophysiologic Disorder: Yes (HEROINE ABUSE-SNORTS,SMOKES CIGARETTES) Hx Anxiety: Yes Hx Bipolar Disorder: Yes Hx Depression: Yes Hx Hallucinations: Yes Hx Panic Disorder: Yes Hx Post Traumatic Stress Disorder: Yes Hx Substance Use: Yes (HEROINE ABUSE.MULTIPLE DRUG PROGRAMS.LAST SNORTED 6 BAGS.DENIES IVDU) - Surgical History Hx Appendectomy: Yes - Anesthesia Hx Anesthesia: Yes Hx Anesthesia Reactions: No Hx Malignant Hyperthermia: No Family/Social History - Physician Review Nursing Documentation Reviewed: Yes Family/Social History: Unknown Family HX Smoking Status: Heavy Smoker > 10 Cigarettes Daily Hx Alcohol Use: No Hx Substance Use: Yes (HEROINE ABUSE.MULTIPLE DRUG PROGRAMS.LAST SNORTED 6 BAGS.DENIES IVDU) Substance used: heroin Allergies/Home Meds Allergies/Adverse Reactions: Allergies Penicillins Allergy (Verified 05/08/18 16:05) RASH sulfur Allergy (Uncoded 05/08/18 16:05) RASH Home Medications: Home Meds Medication Instructions Recorded Confirmed ARIPiprazole [Abilify] 5 mg PO DAILY 10/09/17 01/12/18 Atorvastatin [Lipitor] 20 mg PO DAILY 10/09/17 01/12/18 Cholecalciferol [Vitamin D 1000 IU] 1,000 iu PO DAILY 10/09/17 01/12/18 Fluticasone/Vilanterol [Breo 1 puff INH BID 10/09/17 01/12/18 Ellipta 100-25 Mcg INH] Mirtazapine [Remeron] 30 mg PO DAILY 10/09/17 01/12/18 Ropinirole HCl [Requip] 5 mg PO HS 10/09/17 01/12/18 Vitamin B Complex [Balance B-100] 1 tab PO DAILY 10/09/17 01/12/18 busPIRone [Buspar] 7.5 mg PO DAILY 10/09/17 01/12/18 hydrOXYzine HCl [Atarax] 50 mg PO DAILY 10/09/17 01/12/18 Review of Systems - Review of Systems Systems not reviewed;Unavailable: Acuity of Condition (Unresponsive) Physical Exam Vital Signs Reviewed: Yes Vital Signs Temp Pulse Resp BP Pulse Ox 05/08/18 16:07 97.9 F 95 H 10 L 114/53 L 100 05/08/18 16:05 94 H 19 114/53 L 100 Blood Pressure: Hypotensive Pulse: Regular Respiratory Rate: Normal Appearance: Positive for: Well-Appearing Pain Distress: None Mental Status: Positive for: other (Unresponsive) - Systems Exam Head: Present: Atraumatic, Normocephalic Pupils: Present: PERRL (3mm and reactive to light) Ears: Present: Other (No blood on ear canal) Mouth: Present: Moist Mucous Membranes Neck: Present: Other (C-collar was placed) Respiratory/Chest: Present: Clear to Auscultation, Good Air Exchange. No: Respiratory Distress, Accessory Muscle Use Cardiovascular: Present: Regular Rate and Rhythm, Normal S1, S2. No: Murmurs Abdomen: No: Tenderness, Distention, Peritoneal Signs Upper Extremity: Present: Normal Inspection (No obvious injury). No: Cyanosis, Edema Lower Extremity: Present: Normal Inspection (No obvious injury). No: Edema Neurological: Present: Other (Responsive to painful stimuli only) Skin: Present: Warm, Dry, Normal Color. No: Rashes Medical Decision Making ED Course and Treatment: 05/08/18 16:08 Impression: 62 year old female presents to the Emergency department for change in mental status secondary to unknown case. Plan: -- CT of Cervical Spine -- CT of Head -- EKG -- Labs -- Naloxone -- Blood Culture -- Urine Culture -- Urinalysis -- Reassess and disposition Prior Visits: Notes and results from previous visits were reviewed. Progress Notes: 05/08/18 16:08 C-collar was placed appropriately. 0.4mg Narcan given with response. Patient admits to using 5 bags of heroin prior to arrival. EKG: Ordered, reviewed, and independently interpreted the EKG, shows NSR 111, nml axis, ST/T wave changes similar to last EKG. 05/08/18 16:48 Upon reassessment, patient is awake, alert and orientedx3. Patient admits to using 5 bags of heroin and denies any neck pain or head injury. C-collar was removed. CT of head and cervical spine were cancelled secondary to no clinical indication. Will follow up patient with labs. 05/08/18 19:23 Upon reassessment, patient informs improved symptoms. Patient was advised to avoid future drug use and consequences were extensively discussed. Patient expresses understanding. Patient is stable to be discharged home. - RAD Interpretation Radiology Orders: 05/08/18 16:09 HEAD W/O CONTRAST [CT] Stat 05/08/18 16:10 CERVICAL SPINE W/O CONTRAST [CT] Stat - Medication Orders Current Medication Orders: Discontinued Medications Naloxone HCl (Narcan) 0.4 mg IVP ONCE ONE Stop: 05/08/18 16:12 - Scribe Statement The provider has reviewed the documentation as recorded by the Scribviviana Newsome. All medical record entries made by the Scribe were at my direction and personally dictated by me. I have reviewed the chart and agree that the record accurately reflects my personal performance of the history, physical exam, medical decision making, and the department course for this patient. I have also personally directed, reviewed, and agree with the discharge instructions and disposition. Disposition/Present on Arrival - Present on Arrival Any Indicators Present on Arrival: No History of DVT/PE: No History of Uncontrolled Diabetes: No Urinary Catheter: No History of Decub. Ulcer: No History Surgical Site Infection Following: None - Disposition Have Diagnosis and Disposition been Completed?: Yes Diagnosis: Overdose of heroin Disposition: HOME/ ROUTINE Disposition Time: 19:25 Condition: IMPROVED Discharge Instructions (ExitCare): Drug Abuse and Drug Addiction (DC), Narcotic Overdose Referrals: [facility] at [facility] [place] [Outside] - Follow up with primary [facility] at [facility] [Outside] - Follow up with primary [facility] at [place] [Outside] - Follow up with primary Forms: [employer] (Macedonian)
[2018-05-08 16:25] LABS: BASO # 0.03 K/mm3 (0.0-2.0); BASO % 0.3 % (0.0-3.0); EOS # 0.2 (0.0-0.7); GRAN # 6.78 (1.4-6.5); GRAN % 58.8 % (50.0-68.0); HEMOGLOBIN 13.6 g/dL (12.0-16.0); LYMPH # 3.9 (1.2-3.4); LYMPH % 33.9 % (22.0-35.0); MEAN CELL VOLUME 92.3 fl (80.0-105.0); MEAN CORPUSCULAR HEMOGLOBIN 30.8 pg (25.0-35.0); MEAN CORPUSCULAR HGB CONC 33.3 g/dl (31.0-37.0); MEAN PLATELET VOLUME 10.7 fl (7.0-11.0); MONO # 0.6 (0.1-0.6); RBC 4.42 10^6/uL (3.5-6.1); RED CELL DISTRIBUTION WIDTH 13.8 % (11.5-14.5); WHITE BLOOD COUNT 11.5 10^3/uL (4.5-11.0)
[2018-05-08 16:34] LABS: INR 0.97; PARTIAL THROMBOPLASTIN TIME 27.4 Seconds (25.1-36.5); PROTHROMBIN TIME 11.1 SECONDS (9.4-12.5)
[2018-05-08 16:42] LABS: ALB/GLOB RATIO 1.4 (1.1-1.8); ALBUMIN 4.2 g/dL (3.0-4.8); ALT/SGPT 23 U/L (7-56); AST/SGOT 33 U/L (14-36); BLOOD UREA NITROGEN 22 mg/dL (7-21); CALCIUM 9.2 mg/dL (8.4-10.5); GFR NON-AFRICAN AMERICAN 56
[2018-05-08 16:46] LABS: TROPONIN I < 0.01 ng/mL
--- NOTE | 2018-05-08 18:34 | CARD ---
APPROVED REPORT Date of service: 05/08/2018 EKG Measurement Heart [id number] CO 152P72 [id number] <Conclusion> Sinus tachycardia ST & T wave abnormality, consider lateral ischemia Abnormal ECG
[2018-05-08 20:54] VITALS: BP 117/68; PULSE 81; RESP 15; O2SAT 97
== END 2018-05-08 20:52 | disposition home or self-care (01) ==
LOC: ED 15:50
DX: T40.1X1A Poisoning by heroin, accidental (unintentional), initial encounter (principal); R41.82 Altered mental status, unspecified; F17.210 Nicotine dependence, cigarettes, uncomplicated; J44.9 Chronic obstructive pulmonary disease, unspecified; E05.90 Thyrotoxicosis, unspecified without thyrotoxic crisis or storm
CPT/HCPCS: 80053; 80320; 82550; 83615; 83735; 84100; 84484; 85025; 85610; 85730; 87040; 93005; 96374; 99285; J2310

== ENCOUNTER 2018-06-05 16:54 | Emergency (ER) | payer MEDICAID ==
[2018-06-05 17:06] VITALS: BMI 17.8
[2018-06-05 17:27] VITALS: RESP 18
--- NOTE | 2018-06-05 17:37 | ED PDOC ---
Arrival/HPI - General Historian: Patient - History of Present Illness Narrative History of Present Illness (Text): 06/05/18 17:33 62 y/o female, pmh including seizure/copd, post menopausal, psychiatric history including alcohol and opiate abuse, penicillin allergy, biba for intoxication and found on the street sleeping x 1 hour. Pt. stated that she was using heroine about several hours ago, went to sleep on the street, no fall or trauma, found by the ambulance crew and told her to come to the ER for evaluation. Pt. is easily arousal, aox3, stated that she feels well, no nausea/vomiting, no abdominal pain, no bodyache/cough/Ear/nose/throat complaints, no dizziness, no change in vision, no other medical or psychological complaints. Pt. stated that she feels well, just need to sleep her heroine off. Past Medical History - Provider Review Nursing Documentation Reviewed: Yes - Past History Past History: No Previous - Infectious Disease Hx of Infectious Diseases: None - Tetanus Immunization Tetanus Immunization: Unknown - Reproductive Menopause: Yes - Cardiac Hx Cardiac Disorders: Yes - Pulmonary Hx Chronic Obstructive Pulmonary Disease (COPD): Yes - Neurological Hx Neurological Disorder: Yes Hx Seizures: Yes - HEENT Hx HEENT Disorder: Yes (blurred vision) - Renal Hx Renal Disorder: No - Endocrine/Metabolic Hx Endocrine Disorders: Yes Hx Hyperthyroidism: Yes - Hematological/Oncological Hx Blood Disorders: No - Integumentary Hx Dermatological Disorder: No - Musculoskeletal/Rheumatological Hx Musculoskeletal Disorders: No Hx Falls: Yes (s/p fall on the floor 01/12/18) - Gastrointestinal Hx Gastrointestinal Disorders: Yes (APPENDICITIS WITH PERITONITIS-APPENDECTOMY) - Genitourinary/Gynecological Hx Genitourinary Disorders: Yes Hx Urinary Tract Infection: Yes - Psychiatric Hx Psychophysiologic Disorder: Yes (HEROINE ABUSE-SNORTS,SMOKES CIGARETTES) Hx Anxiety: Yes Hx Bipolar Disorder: Yes Hx Depression: Yes Hx Hallucinations: Yes Hx Panic Disorder: Yes Hx Post Traumatic Stress Disorder: Yes Hx Substance Use: Yes (HEROINE ABUSE.MULTIPLE DRUG PROGRAMS.LAST SNORTED 6 BAGS.DENIES IVDU) - Surgical History Hx Appendectomy: Yes - Anesthesia Hx Anesthesia: Yes Hx Anesthesia Reactions: No Hx Malignant Hyperthermia: No Family/Social History - Physician Review Nursing Documentation Reviewed: Yes Family/Social History: Unknown Family HX Smoking Status: Heavy Smoker > 10 Cigarettes Daily Hx Alcohol Use: No Hx Substance Use: Yes (HEROINE ABUSE.MULTIPLE DRUG PROGRAMS.LAST SNORTED 6 BAGS.DENIES IVDU) Substance used: heroin Allergies/Home Meds Allergies/Adverse Reactions: Allergies Penicillins Allergy (Verified 06/05/18 17:07) RASH sulfur Allergy (Uncoded 05/08/18 16:05) RASH Home Medications: Home Meds Medication Instructions Recorded Confirmed ARIPiprazole [Abilify] 5 mg PO DAILY 10/09/17 01/12/18 Atorvastatin [Lipitor] 20 mg PO DAILY 10/09/17 01/12/18 Cholecalciferol [Vitamin D 1000 IU] 1,000 iu PO DAILY 10/09/17 01/12/18 Fluticasone/Vilanterol [Breo 1 puff INH BID 10/09/17 01/12/18 Ellipta 100-25 Mcg INH] Mirtazapine [Remeron] 30 mg PO DAILY 10/09/17 01/12/18 Ropinirole HCl [Requip] 5 mg PO HS 10/09/17 01/12/18 Vitamin B Complex [Balance B-100] 1 tab PO DAILY 10/09/17 01/12/18 busPIRone [Buspar] 7.5 mg PO DAILY 10/09/17 01/12/18 hydrOXYzine HCl [Atarax] 50 mg PO DAILY 10/09/17 01/12/18 Review of Systems - Review of Systems Constitutional: absent: Fatigue, Fevers Eyes: absent: Vision Changes ENT: absent: Hearing Changes Respiratory: absent: SOB, Cough Cardiovascular: absent: Chest Pain Gastrointestinal: absent: Abdominal Pain, Constipation, Diarrhea, Nausea, Vomiting Musculoskeletal: absent: Arthralgias, Back Pain Skin: absent: Rash, Pruritis Neurological: absent: Headache, Dizziness Psychiatric: absent: Anxiety, Depression, Suicidal Ideation Physical Exam Vital Signs Reviewed: Yes Vital Signs Temp Pulse Resp BP Pulse Ox 06/05/18 17:07 99.4 F 93 H 18 104/68 98 Temperature: Afebrile Blood Pressure: Normal Pulse: Regular Respiratory Rate: Normal Appearance: Positive for: Well-Appearing, Non-Toxic, Comfortable Pain Distress: None Mental Status: Positive for: Alert and Oriented X 3 - Systems Exam Head: Present: Atraumatic, Normocephalic. No: Tenderness, Contusion, Swelling, Ecchymosis, Abrasion, Laceration, Other Pupils: Present: PERRL, Pinpoint Extroacular Muscles: Present: EOMI Conjunctiva: Present: Normal Ears: Present: NORMAL TM, Normal Canal. No: Erythema Mouth: Present: Moist Mucous Membranes Pharnyx: No: ERYTHEMA, EXUDATE, TONSILS ENLARGED Nose (External): Present: Atraumatic. No: Abrasion, Contusion, Laceration Nose (Internal): Present: Normal Inspection, No Active Bleeding. No: Rhinorrhea, Septal Hematoma, Epistaxis Neck: Present: Normal Range of Motion Respiratory/Chest: Present: Clear to Auscultation, Good Air Exchange. No: Respiratory Distress, Accessory Muscle Use, Decreased Breath Sounds, Rales, Retracting, Rhonchi, Tachypneic, Tender to Palpation Cardiovascular: Present: Regular Rate and Rhythm, Normal S1, S2. No: Murmurs Abdomen: No: Tenderness, Distention, Peritoneal Signs, Rebound, Guarding Back: Present: Normal Inspection. No: CVA Tenderness, Midline Tenderness, Paraspinal Tenderness, Pain with Leg Raise, Decubitus Ulcer Upper Extremity: Present: Normal Inspection, Normal ROM, NORMAL PULSES, Neurovascularly Intact. No: Cyanosis, Edema, Tenderness, Swelling, Deformity Lower Extremity: Present: Normal Inspection, NORMAL PULSES, Normal ROM, Neurovascularly Intact. No: Edema, Tenderness, Swelling, Deformity Neurological: Present: GCS=15, CN II-XII Intact, Speech Normal, Motor Func Grossly Intact, Memory Normal Skin: Present: Warm, Dry, Normal Color. No: Rashes Psychiatric: Present: Alert, Oriented x 3, Normal Insight, Normal Concentration Medical Decision Making ED Course and Treatment: 06/05/18 17:39 -CT -Finger stick -Observe and reassess 06/05/18 20:11 -EKG: NSR @ 91 BPM, no ST elevation or depression, no T wave inversion. -CT Head No acute intracranial abnormality. -CT Cervical No acute cervical spine abnormality. -Finger stick 101 -Pending for the patient to be sobered and will discharge her. 06/05/18 22:04 -Pt. is sobered, walking around with normal gait and posture, no distress, no focal neurological deficits. -All test discussed with the patient, and she has no other medical or psychological complaints. -Discharge home with education on avoid public intoxication, follow up with your own pmd within 2 days, return to the ER for any new or worsening signs or symptoms. - RAD Interpretation Radiology Orders: 06/05/18 17:31 HEAD W/O CONTRAST [CT] Stat 06/05/18 17:33 CERVICAL SPINE W/O CONTRAST [CT] Stat -CT Head EXAM: CT Head without Intravenous Contrast. CLINICAL HISTORY: INTOXICATED - FOUND ON THE STREET TECHNIQUE: Axial computed tomography images of the head/brain without intravenous contrast. 861.47 mGy-cm COMPARISON: None provided. FINDINGS: BRAIN No acute intraparenchymal hemorrhage. No mass lesion. No CT evidence for acute territorial infarct. No midline shift or extra-axial collections. VENTRICLES: No hydrocephalus. ORBITS: The orbits are unremarkable. SINUSES AND MASTOIDS: The paranasal sinuses and mastoid air cells are clear. BONES: No fracture. SOFT TISSUES: Unremarkable. IMPRESSION: No acute intracranial abnormality. Electronically signed on Jun 05, 2018 7:31:56 PM EST by: Josh Solano M.D., Certified by [facility], Diagnostic Radiology -CT Cervical EXAM: CT Cervical Spine Without IV contrast. CLINICAL HISTORY: INTOXICATED - FOUND ON HE STREET TECHNIQUE: Axial computed tomography images of the cervical spine without intravenous contrast. Sagittal and coronal reformatted images were generated. COMPARISON: None provided. FINDINGS: ALIGNMENT: Bony alignment is anatomic. DEGENERATIVE CHANGES: No significant canal stenosis or neural foraminal narrowing evident. SOFT TISSUES: The prevertebral soft tissues are within normal limits. BONES: No acute fracture or aggressive appearing osseous lesion. IMPRESSION: No acute cervical spine abnormality. Electronically signed on Jun 05, 2018 7:43:55 PM EST by: Josh Solano M.D., Certified by [facility], Diagnostic Radiology Marriage And Family Counselor: Radiologist - PA / SUPPLY TECHNICIAN / Resident Statement MD/DO has reviewed & agrees with the documentation as recorded. Disposition/Present on Arrival - Present on Arrival Any Indicators Present on Arrival: No History of DVT/PE: No History of Uncontrolled Diabetes: No Urinary Catheter: No History of Decub. Ulcer: No History Surgical Site Infection Following: None - Disposition Have Diagnosis and Disposition been Completed?: Yes Diagnosis: Heroin abuse Disposition: HOME/ ROUTINE Disposition Time: 20:12 Patient Plan: Discharge Patient Problems: Current Active Problems Problem Status Onset Heroin abuse Acute Condition: IMPROVED Additional Instructions: -Discharge home with education on avoid public intoxication, follow up with your own pmd within 2 days, return to the ER for any new or worsening signs or symptoms. Referrals: [facility] [place] - Follow up with primary
[2018-06-06 01:47] VITALS: BP 121/85; PULSE 81; TEMP 98.7; O2SAT 100
--- NOTE | 2018-06-06 09:07 | CT ---
Date of service: 06/05/2018 PROCEDURE: CT HEAD WITHOUT CONTRAST. HISTORY: intoxicated, found on the street COMPARISON: 04/23/2018 CT head TECHNIQUE: Axial computed tomography images were obtained through the head/brain without intravenous contrast. Supplemental Coronal and Sagittal projections created and reviewed. Radiation dose: Total exam DLP = <inf_radiation_dlp> mGy-cm. This CT exam was performed using one or more of the following dose reduction techniques: Automated exposure control, adjustment of the mA and/or kV according to patient size, and/or use of iterative reconstruction technique. FINDINGS: HEMORRHAGE: No intracranial hemorrhage. BRAIN: No mass effect or edema. No atrophy or chronic microvascular ischemic changes. VENTRICLES: Unremarkable. No hydrocephalus. CALVARIUM: Unremarkable. PARANASAL SINUSES: Unremarkable as visualized. No significant inflammatory changes. MASTOID AIR CELLS: Unremarkable as visualized. No inflammatory changes. OTHER FINDINGS: None. IMPRESSION: No acute intracranial abnormalities. No significant findings to account for the clinical presentation. No significant interval change compared to the prior examination(s). Concordant results (preliminary interpretation) provided by [facility]. Procedure Completed: 19:01. Preliminary Report: Dictated and Authenticated: 19:31. Final Interpretation: 09:03. June 06, 2018
--- NOTE | 2018-06-06 09:12 | CT ---
Date of service: 06/05/2018 PROCEDURE: CT Cervical Spine without contrast HISTORY: intoxicated, found on the street COMPARISON: 04/23/2018 TECHNIQUE: Axial computed tomography images were obtained of the cervical spine without the use of intravenous contrast. Coronal and sagittal reformatted images were created and reviewed. Radiation dose: Total exam DLP = 328.16 mGy-cm. This CT exam was performed using one or more of the following dose reduction techniques: Automated exposure control, adjustment of the mA and/or kV according to patient size, and/or use of iterative reconstruction technique. FINDINGS: VERTEBRAE: No fracture. Normal alignment. No destructive bony lesion. DISCS/SPINAL CANAL/NEURAL FORAMINA: No significant central canal or neural foraminal stenosis. Discs heights are grossly preserved. PARASPINAL SOFT TISSUES: Unremarkable. OTHER FINDINGS: None. IMPRESSION: No acute findings related to/ accounting for the clinical presentation. No significant interval change compared to the prior examination(s). Concordant results (preliminary interpretation) provided by [facility]. Procedure Completed: 19:03. Preliminary Report: Dictated and Authenticated: 19:43. Final Interpretation: 09:08.
--- NOTE | 2018-06-06 12:39 | CARD ---
APPROVED REPORT Date of service: 06/05/2018 EKG Measurement Heart [id number] IN 154P70 [id number] <Conclusion> Normal sinus rhythm Possible Left atrial enlargement Borderline ECG
== END 2018-06-05 22:09 | disposition home or self-care (01) ==
LOC: ED 16:54
DX: F11.10 Opioid abuse, uncomplicated (principal); F17.210 Nicotine dependence, cigarettes, uncomplicated

== ENCOUNTER 2018-06-09 12:18 | Inpatient (IN) | payer MEDICAID ==
[2018-06-09 12:30] VITALS: BMI 18.0
[2018-06-09] MEDS ORDERED: Sodium Chloride 0.9% 1,000 ML IV STA ×2 (12:32→15:52)
--- NOTE | 2018-06-09 12:37 | ED PDOC ---
Arrival/HPI - General Chief Complaint: Altered Mental Status Time Seen by Provider: 06/09/18 12:28 Historian: Patient - History of Present Illness Narrative History of Present Illness (Text): 06/09/18 12:43 62 y/o female, pmh including seizure/copd/hld, psychiatric history including chronic drug abuse with heroine, penicillin allergy, found lethargic and stumbling around on the street x 1 day. Pt. was found walking with unsteady gait, stumbling on the street, +pintpoint pupil, +lethargic, confused, hypotensive 90/60s in the ER with hypoxic 86%, no fever or chills, no fall or trauma, no numbness or tingling, no rash, no other medical or psychological complaints. Past Medical History - Provider Review Nursing Documentation Reviewed: Yes - Past History Past History: No Previous - Infectious Disease Hx of Infectious Diseases: None - Tetanus Immunization Tetanus Immunization: Unknown - Reproductive Menopause: Yes - Cardiac Hx Cardiac Disorders: Yes - Pulmonary Hx Chronic Obstructive Pulmonary Disease (COPD): Yes - Neurological Hx Neurological Disorder: Yes Hx Seizures: Yes - HEENT Hx HEENT Disorder: Yes (blurred vision) - Renal Hx Renal Disorder: No - Endocrine/Metabolic Hx Endocrine Disorders: Yes Hx Hyperthyroidism: Yes - Hematological/Oncological Hx Blood Disorders: No - Integumentary Hx Dermatological Disorder: No - Musculoskeletal/Rheumatological Hx Musculoskeletal Disorders: No Hx Falls: Yes (s/p fall on the floor 01/12/18) - Gastrointestinal Hx Gastrointestinal Disorders: Yes (APPENDICITIS WITH PERITONITIS-APPENDECTOMY) - Genitourinary/Gynecological Hx Genitourinary Disorders: Yes Hx Urinary Tract Infection: Yes - Psychiatric Hx Psychophysiologic Disorder: Yes (HEROINE ABUSE-SNORTS,SMOKES CIGARETTES) Hx Anxiety: Yes Hx Bipolar Disorder: Yes Hx Depression: Yes Hx Hallucinations: Yes Hx Panic Disorder: Yes Hx Post Traumatic Stress Disorder: Yes Hx Substance Use: Yes (HEROINE ABUSE.MULTIPLE DRUG PROGRAMS.LAST SNORTED 6 BAGS.DENIES IVDU) - Surgical History Hx Appendectomy: Yes - Anesthesia Hx Anesthesia: Yes Hx Anesthesia Reactions: No Hx Malignant Hyperthermia: No Family/Social History - Physician Review Nursing Documentation Reviewed: Yes Family/Social History: Unknown Family HX Smoking Status: Heavy Smoker > 10 Cigarettes Daily Hx Alcohol Use: No Hx Substance Use: Yes (HEROINE ABUSE.MULTIPLE DRUG PROGRAMS.LAST SNORTED 6 BAGS.DENIES IVDU) Substance used: heroin Allergies/Home Meds Allergies/Adverse Reactions: Allergies Penicillins Allergy (Verified 06/05/18 17:07) RASH sulfur Allergy (Uncoded 05/08/18 16:05) RASH Home Medications: Home Meds Medication Instructions Recorded Confirmed ARIPiprazole [Abilify] 5 mg PO DAILY 10/09/17 01/12/18 Atorvastatin [Lipitor] 20 mg PO DAILY 10/09/17 06/09/18 Cholecalciferol [Vitamin D 1000 IU] 1,000 iu PO DAILY 10/09/17 06/09/18 Fluticasone/Vilanterol [Breo 1 puff INH BID 10/09/17 06/09/18 Ellipta 100-25 Mcg INH] Mirtazapine [Remeron] 30 mg PO DAILY 10/09/17 01/12/18 Ropinirole HCl [Requip] 5 mg PO HS 10/09/17 01/12/18 Vitamin B Complex [Balance B-100] 1 tab PO DAILY 10/09/17 01/12/18 busPIRone [Buspar] 7.5 mg PO DAILY 10/09/17 01/12/18 hydrOXYzine HCl [Atarax] 50 mg PO DAILY 10/09/17 01/12/18 clonazePAM [Klonopin] 0.5 mg PO BID 06/09/18 06/09/18 Review of Systems - Review of Systems Systems not reviewed;Unavailable: Intoxicated Constitutional: absent: Fatigue, Fevers Eyes: absent: Vision Changes ENT: absent: Hearing Changes Respiratory: absent: SOB, Cough Cardiovascular: absent: Chest Pain, Syncope Gastrointestinal: absent: Abdominal Pain, Diarrhea, Nausea, Vomiting Musculoskeletal: absent: Arthralgias, Back Pain Skin: absent: Rash, Pruritis Neurological: absent: Headache, Dizziness, Speech Changes Psychiatric: absent: Anxiety, Depression, Suicidal Ideation Physical Exam - Systems Exam Head: Present: Atraumatic, Normocephalic. No: Tenderness, Contusion, Swelling, Ecchymosis, Abrasion, Laceration, Other Pupils: Present: Pinpoint Extroacular Muscles: Present: EOMI Conjunctiva: Present: Normal Ears: Present: NORMAL TM, Normal Canal. No: Erythema Mouth: Present: Moist Mucous Membranes, Normal Lips, Normal Tounge. No: Vinnie oling Pharnyx: No: ERYTHEMA, EXUDATE, TONSILS ENLARGED, Uvular Deviation, Muffled/Hoarse Voice, Strider, Soft Palate/Uvular Edema Nose (External): Present: Atraumatic. No: Abrasion, Contusion, Laceration Nose (Internal): Present: Normal Inspection, No Active Bleeding. No: Rhinorrhea, Septal Hematoma, Epistaxis Neck: Present: Normal Range of Motion, Trachea Midline. No: MIDLINE TENDERNESS, Paraspinal Tenderness, Lymphadenopathy Respiratory/Chest: Present: Wheezes (RLL), Rhonchi (RLL). No: Respiratory Distress, Accessory Muscle Use, Tachypneic Cardiovascular: Present: Regular Rate and Rhythm, Normal S1, S2. No: Murmurs Abdomen: No: Tenderness, Distention, Peritoneal Signs, Rebound, Guarding Back: Present: Normal Inspection Upper Extremity: Present: Normal Inspection, Normal ROM, NORMAL PULSES, Neurovascularly Intact, Capillary Refill < 2s. No: Cyanosis, Edema, Deformity Lower Extremity: Present: Normal Inspection, NORMAL PULSES, Normal ROM, Neurovascularly Intact, Capillary Refill < 2 s. No: Edema, Deformity Neurological: Present: CN II-XII Intact, Motor Func Grossly Intact Skin: Present: Warm, Dry, Normal Color. No: Rashes Psychiatric: Present: Alert, Oriented x 3, Normal Insight, Normal Concentration Medical Decision Making ED Course and Treatment: 06/09/18 12:41 -labs -CT -cxr -IVF/duoneb/solumedrol/marcan -Oxygen non-rebreather -Observe and reassess 06/09/18 13:43 -ABG: Ph 7.15, Co2 68, HCO3 24.8. Respiratory acidosis. I reviewed previous labs from 04/2018, similiar ABG, improved with BIPAP, BIPAP ordered, will repeat the ABG in an hour. -She would need admission. 06/09/18 15:47 -EKG: Sinus Tachycardia @ 119 BPM, no ST elevation or depression, no T wave inversion. -CT head: Normal CT of the Head. -Chest xray: No active disease -Rapid flu: negative -Labs show no acute findings. -Mg within normal limit -Trop within normal limit -BNP within normal limit -UA ordered and no urine sample. -UDS ordered and no urine sample. -Alcohol within normal limit. -Salicylate: within normal limit -ABG ABG: Ph 7.15, Co2 68, HCO3 24.8. Respiratory acidosis. Bipap ordered. -Wheezing decreased, feels much better. -After Bipap, PH 7.31, Co2 44, Hco3 22, significant improvement, still mild respiratory acidosis, will admit for COPD/hypoxic/overdose heroine/respiratory acidosis -Pt. is awake now, aox3, GCS 15, discussed about the test and result, she agreed to be admitted, wheezing improved, still hypoxic around lower 92s room air oxygen. 06/09/18 16:00 -I spoke to the medical team, Dr. Escobar, discussed about the case/labs/radiology result, agreed to admit this patient to telemetry and he would follow up the care/UA/UDS result. - Critical Care Critical Care Minutes: 45 minutes Critical Care Time: Unstable Narrative Critical Care (Text): 06/09/18 13:48 Hypoxic/intoxicated/copd with wheezing/wheezing, continuous nebulizer and IV steroid, respiratory acidosis. - RAD Interpretation Radiology Orders: 06/09/18 12:32 HEAD W/O CONTRAST [CT] Stat CHEST PORTABLE [RAD] Stat CT head Date of service: 06/09/2018 PROCEDURE: CT HEAD WITHOUT CONTRAST. HISTORY: intoxicated, found on the street, COMPARISON: None available. TECHNIQUE: Axial computed tomography images were obtained through the head/brain without intravenous contrast. Radiation dose: Total exam DLP = 863.04 mGy-cm. This CT exam was performed using one or more of the following dose reduction techniques: Automated exposure control, adjustment of the mA and/or kV according to patient size, and/or use of iterative reconstruction technique. FINDINGS: HEMORRHAGE: No intracranial hemorrhage. BRAIN: No mass effect or edema. No atrophy or chronic microvascular ischemic changes. VENTRICLES: Unremarkable. No hydrocephalus. CALVARIUM: Unremarkable. PARANASAL SINUSES: Unremarkable as visualized. No significant inflammatory changes. MASTOID AIR CELLS: Unremarkable as visualized. No inflammatory changes. OTHER FINDINGS: None. IMPRESSION: Normal CT of the Head. Chest xray Date of service: 06/09/2018 HISTORY: medical clearance COMPARISON: 04/23/2018 FINDINGS: LUNGS: No active pulmonary disease. PLEURA: No significant pleural effusion identified, no pneumothorax apparent. CARDIOVASCULAR: No aortic atherosclerotic calcification present. Normal cardiac size. No pulmonary vascular congestion. OSSEOUS STRUCTURES: No significant abnormalities. VISUALIZED UPPER ABDOMEN: Normal. OTHER FINDINGS: None. IMPRESSION: No active disease. Leather Case Finisher: Radiologist - PA / HOSPITAL MORTICIAN / Resident Statement MD/DO has reviewed & agrees with the documentation as recorded. Disposition/Present on Arrival - Present on Arrival Any Indicators Present on Arrival: No History of DVT/PE: No History of Uncontrolled Diabetes: No Urinary Catheter: No History of Decub. Ulcer: No History Surgical Site Infection Following: None - Disposition Have Diagnosis and Disposition been Completed?: Yes Diagnosis: COPD (chronic obstructive pulmonary disease), Respiratory acidosis, Overdose, Hypoxic Disposition: HOSPITALIZED Disposition Time: 16:09 Patient Plan: Observation, Telemetry Patient Problems: Current Active Problems Problem Status Onset Overdose Acute COPD (chronic obstructive pulmonary disease) Acute Respiratory acidosis Acute Hypoxic Acute Condition: GUARDED Referrals: PCP,NO [Primary Care Provider] - Follow up with primary Forms: [email or web address] ([place]grin)
[2018-06-09] MEDS ORDERED: Naloxone HCl 2mg/2ml syr IVP ONE (12:38)
[2018-06-09] MEDS: Albuterol-Ipratrop 3 mg / 0.5 (3 ml) UD IH SCH ×3 (12:45→14:16)
[2018-06-09 12:49] LABS: BASO # 0.02 K/mm3 (0.0-2.0); BASO % 0.2 % (0.0-3.0); EOS # 0.1 (0.0-0.7); EOS % 0.6 % (1.5-5.0); GRAN # 9.42 (1.4-6.5); GRAN % 75.1 % (50.0-68.0); HEMOGLOBIN 13.5 g/dL (12.0-16.0); LYMPH # 2.5 (1.2-3.4); LYMPH % 19.6 % (22.0-35.0); MEAN CELL VOLUME 92.6 fl (80.0-105.0); MEAN CORPUSCULAR HGB CONC 33.5 g/dl (31.0-37.0); MEAN PLATELET VOLUME 9.9 fl (7.0-11.0); MONO # 0.6 (0.1-0.6); MONO % 4.5 % (1.0-6.0); RBC 4.35 10^6/uL (3.5-6.1); RED CELL DISTRIBUTION WIDTH 13.6 % (11.5-14.5); WHITE BLOOD COUNT 12.5 10^3/uL (4.5-11.0)
[2018-06-09 13:04] LABS: ALB/GLOB RATIO 1.4 (1.1-1.8); ALBUMIN 4.5 g/dL (3.0-4.8); ALT/SGPT 24 U/L (7-56); AST/SGOT 22 U/L (14-36); BLOOD UREA NITROGEN 17 mg/dL (7-21); CALCIUM 9.8 mg/dL (8.4-10.5); GFR NON-AFRICAN AMERICAN > 60
[2018-06-09 13:12] LABS: ARTERIAL BLOOD GAS HCO3 24.8 mmol/L (21-28); ARTERIAL BLOOD GAS O2 SAT 99.1 % (95-98); ARTERIAL BLOOD GAS PCO2 68 mm/Hg (35-45); ARTERIAL BLOOD GAS TCO2 26.9 mmol.L (22-28)
[2018-06-09 13:13] LABS: B-TYPE NATRIURETIC PEPTIDE 73.7 pg/mL (0-450); TROPONIN I < 0.01 ng/mL
[2018-06-09 13:38] LABS: ARTERIAL BLOOD GAS PH 7.17 (7.35-7.45)
--- NOTE | 2018-06-09 13:48 | CT ---
Date of service: 06/09/2018 PROCEDURE: CT HEAD WITHOUT CONTRAST. HISTORY: intoxicated, found on the street, COMPARISON: None available. TECHNIQUE: Axial computed tomography images were obtained through the head/brain without intravenous contrast. Radiation dose: Total exam DLP = 863.04 mGy-cm. This CT exam was performed using one or more of the following dose reduction techniques: Automated exposure control, adjustment of the mA and/or kV according to patient size, and/or use of iterative reconstruction technique. FINDINGS: HEMORRHAGE: No intracranial hemorrhage. BRAIN: No mass effect or edema. No atrophy or chronic microvascular ischemic changes. VENTRICLES: Unremarkable. No hydrocephalus. CALVARIUM: Unremarkable. PARANASAL SINUSES: Unremarkable as visualized. No significant inflammatory changes. MASTOID AIR CELLS: Unremarkable as visualized. No inflammatory changes. OTHER FINDINGS: None. IMPRESSION: Normal CT of the Head.
--- NOTE | 2018-06-09 14:05 | RAD ---
Date of service: 06/09/2018 HISTORY: medical clearance COMPARISON: 04/23/2018 FINDINGS: LUNGS: No active pulmonary disease. PLEURA: No significant pleural effusion identified, no pneumothorax apparent. CARDIOVASCULAR: No aortic atherosclerotic calcification present. Normal cardiac size. No pulmonary vascular congestion. OSSEOUS STRUCTURES: No significant abnormalities. VISUALIZED UPPER ABDOMEN: Normal. OTHER FINDINGS: None. IMPRESSION: No active disease.
[2018-06-09 15:44] LABS: ARTERIAL BLOOD GAS HCO3 22.2 mmol/L (21-28); ARTERIAL BLOOD GAS HEMOGLOBIN 12.6 g/dL (11.7-17.4); ARTERIAL BLOOD GAS O2 CAPACITY 17.6 mL/dl (16-24); ARTERIAL BLOOD GAS O2 CONTENT 17.3 ML/dl (15-23); ARTERIAL BLOOD GAS O2 SAT 98.5 % (95-98); ARTERIAL BLOOD GAS PCO2 44 mm/Hg (35-45); ARTERIAL BLOOD GAS PH 7.31 (7.35-7.45); ARTERIAL BLOOD GAS TCO2 23.6 mmol.L (22-28)
[2018-06-09] MEDS ORDERED: Albuterol-Ipratrop 3 mg / 0.5 (3 ml) UD IH PRN (16:31)
[2018-06-09 16:44] LABS: URINE BILIRUBIN NEGATIVE (NEGATIVE); URINE BLOOD NEGATIVE (NEGATIVE); URINE GLUCOSE (UA) NEGATIVE (NEGATIVE); URINE LEUKOCYTE ESTERASE TRACE Leu/uL (NEGATIVE); URINE PROTEIN TRACE mg/dL (<30 mg/dL); URINE UROBILINOGEN 0.2 E.U./dL (<1 E.U./dL)
[2018-06-09 16:45] LABS: URINE APPEARANCE CLEAR (CLEAR); URINE COLOR DARK YELLOW (YELLOW)
--- NOTE | 2018-06-09 16:54 | CARD ---
APPROVED REPORT Date of service: 06/09/2018 EKG Measurement Heart [id number] AL [id number] [id number] <Conclusion> Sinus tachycardia Biatrial enlargement ST abnormality, possible digitalis effect Abnormal ECG
[2018-06-09] MEDS ORDERED: Levalbuterol 0.63 MG/3 ML Inhal Soln UD IH PRN (16:57)
[2018-06-09 16:59] LABS: BARBITURATES, UR NEGATIVE (NEGATIVE); BENZODIAZEPINES, UR NEGATIVE (NEGATIVE); OPIATES, UR POSITIVE (NEGATIVE); PHENCYCLIDINE, UR NEGATIVE (NEGATIVE)
[2018-06-09 17:00] LABS: URINE BACTERIA SMALL /hpf; URINE EPITHELIAL CELLS 0 - 2 /hpf (0-5); URINE RBC NEGATIVE /hpf (0-2)
--- NOTE | 2018-06-09 17:51 | CP.PCM.HP ---
Past Patient History - Infectious Disease Hx of Infectious Diseases: None - Tetanus Immunizations Tetanus Immunization: Unknown - Past Social History Smoking Status: Heavy Smoker > 10 Cigarettes Daily - CARDIAC Hx Cardiac Disorders: Yes - PULMONARY Hx Chronic Obstructive Pulmonary Disease (COPD): Yes - NEUROLOGICAL Hx Neurological Disorder: Yes Hx Seizures: Yes - HEENT Hx HEENT Problems: Yes (blurred vision) - RENAL Hx Chronic Kidney Disease: No - ENDOCRINE/METABOLIC Hx Endocrine Disorders: Yes Hx Hyperthyroidism: Yes - HEMATOLOGICAL/ONCOLOGICAL Hx Blood Disorders: No - INTEGUMENTARY Hx Dermatological Problems: No - MUSCULOSKELETAL/RHEUMATOLOGICAL Hx Musculoskeletal Disorders: No Hx Falls: Yes (s/p fall on the floor 01/12/18) - GASTROINTESTINAL Hx Gastrointestinal Disorders: Yes (APPENDICITIS WITH PERITONITIS-APPENDECTOMY) - GENITOURINARY/GYNECOLOGICAL Hx Genitourinary Disorders: Yes Hx Urinary Tract Infection: Yes - PSYCHIATRIC Hx Psychophysiologic Disorder: Yes (HEROINE ABUSE-SNORTS,SMOKES CIGARETTES) Hx Anxiety: Yes Hx Bipolar Disorder: Yes Hx Depression: Yes Hx Hallucinations: Yes Hx Panic Symptoms: Yes Hx Post Traumatic Stress Disorder: Yes Hx Substance Use: Yes (HEROINE ABUSE.MULTIPLE DRUG PROGRAMS.LAST SNORTED 6 BAGS.DENIES IVDU) - SURGICAL HISTORY Hx Appendectomy: Yes - ANESTHESIA Hx Anesthesia: Yes Hx Anesthesia Reactions: No Hx Malignant Hyperthermia: No Meds Allergies/Adverse Reactions: Allergies Allergy/AdvReac Type Severity Reaction Status Date / Time Penicillins Allergy RASH Verified 06/05/18 17:07 sulfur Allergy RASH Uncoded 05/08/18 16:05 Results - Vital Signs Recent Vital Signs: Last Vital Signs Temp 98 F 06/09/18 16:16 Pulse 88 06/09/18 16:16 Resp 18 06/09/18 16:16 BP 110/75 06/09/18 16:16 Pulse Ox 98 06/09/18 16:16 - Labs Result Diagrams: 06/09/18 12:40 06/09/18 12:40 Labs: Laboratory Results - last 24 hr 06/09/18 06/09/18 06/09/18 12:40 12:40 12:40 WBC RBC Hgb Hct MCV MCH MCHC RDW Plt Count MPV Gran % Lymph % (Auto) Jewell % (Auto) Eos % (Auto) Baso % (Auto) Gran # Lymph # (Auto) Jewell # (Auto) Eos # (Auto) Baso # (Auto) pCO2 pO2 HCO3 ABG pH ABG Total CO2 ABG O2 Saturation ABG O2 Content ABG Base Excess ABG Hemoglobin ABG Carboxyhemoglobin POC ABG HHb (Measured) ABG Methemoglobin ABG O2 Capacity ABG Potassium Hgb O2 Saturation Glucose Lactate FiO2 Sodium 141 Potassium 4.1 Chloride 109 H Carbon Dioxide 24 Anion Gap 11 BUN 17 Creatinine 0.8 Est GFR ( Amer) > 60 Est GFR (Non-Af Amer) > 60 Random Glucose 144 H Calcium 9.8 Magnesium 1.9 Total Bilirubin 0.3 AST 22 ALT 24 Alkaline Phosphatase 92 Troponin I < 0.01 NT-Pro-B Natriuret Pep 73.7 Total Protein 7.6 Albumin 4.5 Globulin 3.1 Albumin/Globulin Ratio 1.4 Arterial Blood Potassium Urine Color Urine Appearance Urine pH Ur Specific Percy Urine Protein Urine Glucose (UA) Urine Ketones Urine Blood Urine Nitrate Urine Bilirubin Urine Urobilinogen Ur Leukocyte Esterase Urine RBC Urine WBC Ur Epithelial Cells Urine Bacteria Hyaline Casts Salicylates < 1 L Urine Opiates Screen Urine Methadone Screen Ur Barbiturates Screen Ur Phencyclidine Scrn Ur Amphetamines Screen U Benzodiazepines Scrn U Oth Cocaine Metabols U Cannabinoids Screen Alcohol, Quantitative < 10 Influenza Typ A,B (EIA) 06/09/18 06/09/18 06/09/18 12:40 13:03 13:09 WBC 12.5 H RBC 4.35 Hgb 13.5 Hct 40.3 MCV 92.6 MCH 31.0 MCHC 33.5 RDW 13.6 Plt Count 295 MPV 9.9 Gran % 75.1 H Lymph % (Auto) 19.6 L Jewell % (Auto) 4.5 Eos % (Auto) 0.6 L Baso % (Auto) 0.2 Gran # 9.42 H Lymph # (Auto) 2.5 Jewell # (Auto) 0.6 Eos # (Auto) 0.1 Baso # (Auto) 0.02 pCO2 68 H pO2 316.0 H HCO3 24.8 ABG pH 7.17 L* ABG Total CO2 26.9 ABG O2 Saturation 99.1 H ABG O2 Content ABG Base Excess -5.1 L ABG Hemoglobin ABG Carboxyhemoglobin POC ABG HHb (Measured) ABG Methemoglobin ABG O2 Capacity ABG Potassium 3.7 Hgb O2 Saturation Glucose 119 H Lactate 0.8 FiO2 100.0 Sodium 141.0 Potassium Chloride 110.0 H Carbon Dioxide Anion Gap BUN Creatinine Est GFR ( Amer) Est GFR (Non-Af Amer) Random Glucose Calcium Magnesium Total Bilirubin AST ALT Alkaline Phosphatase Troponin I NT-Pro-B Natriuret Pep Total Protein Albumin Globulin Albumin/Globulin Ratio Arterial Blood Potassium 3.7 Urine Color Urine Appearance Urine pH Ur Specific Percy Urine Protein Urine Glucose (UA) Urine Ketones Urine Blood Urine Nitrate Urine Bilirubin Urine Urobilinogen Ur Leukocyte Esterase Urine RBC Urine WBC Ur Epithelial Cells Urine Bacteria Hyaline Casts Salicylates Urine Opiates Screen Urine Methadone Screen Ur Barbiturates Screen Ur Phencyclidine Scrn Ur Amphetamines Screen U Benzodiazepines Scrn U Oth Cocaine Metabols U Cannabinoids Screen Alcohol, Quantitative Influenza Typ A,B (EIA) Negative for flu a/b 06/09/18 06/09/18 06/09/18 15:41 16:36 16:36 WBC RBC Hgb Hct MCV MCH MCHC RDW Plt Count MPV Gran % Lymph % (Auto) Jewell % (Auto) Eos % (Auto) Baso % (Auto) Gran # Lymph # (Auto) Jewell # (Auto) Eos # (Auto) Baso # (Auto) pCO2 44 pO2 161.0 H HCO3 22.2 ABG pH 7.31 L ABG Total CO2 23.6 ABG O2 Saturation 98.5 H ABG O2 Content 17.3 ABG Base Excess -4.0 L ABG Hemoglobin 12.6 ABG Carboxyhemoglobin 1.9 H POC ABG HHb (Measured) 1.5 ABG Methemoglobin 0.8 ABG O2 Capacity 17.6 ABG Potassium Hgb O2 Saturation 95.7 Glucose Lactate FiO2 35.0 Sodium Potassium Chloride Carbon Dioxide Anion Gap BUN Creatinine Est GFR ( Amer) Est GFR (Non-Af Amer) Random Glucose Calcium Magnesium Total Bilirubin AST ALT Alkaline Phosphatase Troponin I NT-Pro-B Natriuret Pep Total Protein Albumin Globulin Albumin/Globulin Ratio Arterial Blood Potassium Urine Color Dark yellow Urine Appearance Clear Urine pH 6.0 Ur Specific Percy >= 1.030 Urine Protein Trace H Urine Glucose (UA) Negative Urine Ketones Negative Urine Blood Negative Urine Nitrate Negative Urine Bilirubin Negative Urine Urobilinogen 0.2 Ur Leukocyte Esterase Trace H Urine RBC Negative Urine WBC 2 - 5 Ur Epithelial Cells 0 - 2 Urine Bacteria Small Hyaline Casts 2 - 5 Salicylates Urine Opiates Screen Positive H Urine Methadone Screen Negative Ur Barbiturates Screen Negative Ur Phencyclidine Scrn Negative Ur Amphetamines Screen Negative U Benzodiazepines Scrn Negative U Oth Cocaine Metabols Negative U Cannabinoids Screen Negative Alcohol, Quantitative Influenza Typ A,B (EIA)
--- NOTE | 2018-06-09 17:54 | CP.PCM.HP ---
<Sarina Camacho - Last Filed: 06/09/18 18:34> History of Present Illness - History of Present Illness History of Present Illness: Sarina Camacho, PGY1 Hospital H&P This is a 62 year old female with PMH of COPD, HLD, depression, anxiety and heroin abuse presenting to the ED after being found confused, lethargic and stumbling in the street earlier in the afternoon. She does not recall the events leading up to her confusion and states the last thing she recalls is eating breakfast at home. She lives with her twin sister in [place] and per sister, patient takes frequent long walks around the city. In the ED, patient's pupils noted to be pinpoint and hypotensive with O2 of 86% on RA and subsequently given narcan. Patient admitted to snorting heroin earlier in the day but was vague in regards to the quantity. She says she typically snorts heroin twice a week. She denies alcohol use and IV drug use. She was admitted to the hospital for heroin overdose in 11/2017 and discharged after one day. She currently denies CP, SOB, fevers, chills, headaches, dizziness, back pain, abdominal pain, urinary complaints, numbness, tingling, swelling, diarrhea, constipation, nausea, vomiting, recent travel, sickness and trauma. 12 point ROS noted here, otherwise unremarkable. PMD: unsure of name, located in [place]. Attempting to find local PMD Psychiatrist: Dr. Moser PMH: COPD, HLD, depression, anxiety and heroin abuse SX: appendectomy FH: denies SH: smokes 1ppd for many years, smokes heroin twice per week, denies alcohol use. Denies IV drug use. Lives in [place] with her twin sister Allergies: Sulfa/penicillin- rash Meds: [facility] in [place]. Pharmacy currently closed, will call in AM Present on Admission - Present on Admission Any Indicators Present on Admission: No Past Patient History - Infectious Disease Hx of Infectious Diseases: None - Tetanus Immunizations Tetanus Immunization: Unknown - Past Social History Smoking Status: Heavy Smoker > 10 Cigarettes Daily - CARDIAC Hx Cardiac Disorders: Yes - PULMONARY Hx Chronic Obstructive Pulmonary Disease (COPD): Yes - NEUROLOGICAL Hx Neurological Disorder: Yes Hx Seizures: Yes - HEENT Hx HEENT Problems: Yes (blurred vision) - RENAL Hx Chronic Kidney Disease: No - ENDOCRINE/METABOLIC Hx Endocrine Disorders: Yes Hx Hyperthyroidism: Yes - HEMATOLOGICAL/ONCOLOGICAL Hx Blood Disorders: No - INTEGUMENTARY Hx Dermatological Problems: No - MUSCULOSKELETAL/RHEUMATOLOGICAL Hx Musculoskeletal Disorders: No Hx Falls: Yes (s/p fall on the floor 01/12/18) - GASTROINTESTINAL Hx Gastrointestinal Disorders: Yes (APPENDICITIS WITH PERITONITIS-APPENDECTOMY) - GENITOURINARY/GYNECOLOGICAL Hx Genitourinary Disorders: Yes Hx Urinary Tract Infection: Yes - PSYCHIATRIC Hx Psychophysiologic Disorder: Yes (HEROINE ABUSE-SNORTS,SMOKES CIGARETTES) Hx Anxiety: Yes Hx Bipolar Disorder: Yes Hx Depression: Yes Hx Hallucinations: Yes Hx Panic Symptoms: Yes Hx Post Traumatic Stress Disorder: Yes Hx Substance Use: Yes (HEROINE ABUSE.MULTIPLE DRUG PROGRAMS.LAST SNORTED 6 BAGS.DENIES IVDU) - SURGICAL HISTORY Hx Appendectomy: Yes - ANESTHESIA Hx Anesthesia: Yes Hx Anesthesia Reactions: No Hx Malignant Hyperthermia: No Meds Allergies/Adverse Reactions: Allergies Allergy/AdvReac Type Severity Reaction Status Date / Time Penicillins Allergy RASH Verified 06/05/18 17:07 sulfur Allergy RASH Uncoded 05/08/18 16:05 Physical Exam - Constitutional Appears: No Acute Distress, Other Additional comments: anxious - Head Exam Head Exam: ATRAUMATIC, NORMAL INSPECTION - Eye Exam Eye Exam: EOMI Additional comments: sluggish miotic pupils - ENT Exam ENT Exam: Mucous Membranes Moist - Neck Exam Neck exam: Positive for: Normal Inspection - Respiratory Exam Respiratory Exam: Clear to Auscultation Bilateral, NORMAL BREATHING PATTERN. absent: Accessory Muscle Use, Wheezes, Respiratory Distress - Cardiovascular Exam Cardiovascular Exam: Tachycardia, +S1, +S2 - GI/Abdominal Exam GI & Abdominal Exam: Normal Bowel Sounds, Soft. absent: Firm, Guarding, Tenderness - Extremities Exam Extremities exam: Positive for: normal inspection, pedal edema, pedal pulses present. Negative for: calf tenderness, tenderness - Back Exam Back exam: NORMAL INSPECTION - Neurological Exam Neurological exam: Alert, CN II-XII Intact, Normal Gait, Oriented x3 - Skin Skin Exam: Normal Color, Warm Results - Vital Signs Recent Vital Signs: Last Vital Signs Temp 98 F 06/09/18 16:16 Pulse 88 06/09/18 16:16 Resp 18 06/09/18 16:16 BP 110/75 06/09/18 16:16 Pulse Ox 98 06/09/18 16:16 - Labs Result Diagrams: 06/09/18 12:40 06/09/18 12:40 Labs: Laboratory Results - last 24 hr 06/09/18 06/09/18 06/09/18 12:40 12:40 12:40 WBC RBC Hgb Hct MCV MCH MCHC RDW Plt Count MPV Gran % Lymph % (Auto) Coke % (Auto) Eos % (Auto) Baso % (Auto) Gran # Lymph # (Auto) Coke # (Auto) Eos # (Auto) Baso # (Auto) pCO2 pO2 HCO3 ABG pH ABG Total CO2 ABG O2 Saturation ABG O2 Content ABG Base Excess ABG Hemoglobin ABG Carboxyhemoglobin POC ABG HHb (Measured) ABG Methemoglobin ABG O2 Capacity ABG Potassium Hgb O2 Saturation Glucose Lactate FiO2 Sodium 141 Potassium 4.1 Chloride 109 H Carbon Dioxide 24 Anion Gap 11 BUN 17 Creatinine 0.8 Est GFR ( Amer) > 60 Est GFR (Non-Af Amer) > 60 Random Glucose 144 H Calcium 9.8 Magnesium 1.9 Total Bilirubin 0.3 AST 22 ALT 24 Alkaline Phosphatase 92 Troponin I < 0.01 NT-Pro-B Natriuret Pep 73.7 Total Protein 7.6 Albumin 4.5 Globulin 3.1 Albumin/Globulin Ratio 1.4 Arterial Blood Potassium Urine Color Urine Appearance Urine pH Ur Specific Cool Urine Protein Urine Glucose (UA) Urine Ketones Urine Blood Urine Nitrate Urine Bilirubin Urine Urobilinogen Ur Leukocyte Esterase Urine RBC Urine WBC Ur Epithelial Cells Urine Bacteria Hyaline Casts Salicylates < 1 L Urine Opiates Screen Urine Methadone Screen Ur Barbiturates Screen Ur Phencyclidine Scrn Ur Amphetamines Screen U Benzodiazepines Scrn U Oth Cocaine Metabols U Cannabinoids Screen Alcohol, Quantitative < 10 Influenza Typ A,B (EIA) 06/09/18 06/09/18 06/09/18 12:40 13:03 13:09 WBC 12.5 H RBC 4.35 Hgb 13.5 Hct 40.3 MCV 92.6 MCH 31.0 MCHC 33.5 RDW 13.6 Plt Count 295 MPV 9.9 Gran % 75.1 H Lymph % (Auto) 19.6 L Coke % (Auto) 4.5 Eos % (Auto) 0.6 L Baso % (Auto) 0.2 Gran # 9.42 H Lymph # (Auto) 2.5 Coke # (Auto) 0.6 Eos # (Auto) 0.1 Baso # (Auto) 0.02 pCO2 68 H pO2 316.0 H HCO3 24.8 ABG pH 7.17 L* ABG Total CO2 26.9 ABG O2 Saturation 99.1 H ABG O2 Content ABG Base Excess -5.1 L ABG Hemoglobin ABG Carboxyhemoglobin POC ABG HHb (Measured) ABG Methemoglobin ABG O2 Capacity ABG Potassium 3.7 Hgb O2 Saturation Glucose 119 H Lactate 0.8 FiO2 100.0 Sodium 141.0 Potassium Chloride 110.0 H Carbon Dioxide Anion Gap BUN Creatinine Est GFR ( Amer) Est GFR (Non-Af Amer) Random Glucose Calcium Magnesium Total Bilirubin AST ALT Alkaline Phosphatase Troponin I NT-Pro-B Natriuret Pep Total Protein Albumin Globulin Albumin/Globulin Ratio Arterial Blood Potassium 3.7 Urine Color Urine Appearance Urine pH Ur Specific Cool Urine Protein Urine Glucose (UA) Urine Ketones Urine Blood Urine Nitrate Urine Bilirubin Urine Urobilinogen Ur Leukocyte Esterase Urine RBC Urine WBC Ur Epithelial Cells Urine Bacteria Hyaline Casts Salicylates Urine Opiates Screen Urine Methadone Screen Ur Barbiturates Screen Ur Phencyclidine Scrn Ur Amphetamines Screen U Benzodiazepines Scrn U Oth Cocaine Metabols U Cannabinoids Screen Alcohol, Quantitative Influenza Typ A,B (EIA) Negative for flu a/b 06/09/18 06/09/18 06/09/18 15:41 16:36 16:36 WBC RBC Hgb Hct MCV MCH MCHC RDW Plt Count MPV Gran % Lymph % (Auto) Coke % (Auto) Eos % (Auto) Baso % (Auto) Gran # Lymph # (Auto) Coke # (Auto) Eos # (Auto) Baso # (Auto) pCO2 44 pO2 161.0 H HCO3 22.2 ABG pH 7.31 L ABG Total CO2 23.6 ABG O2 Saturation 98.5 H ABG O2 Content 17.3 ABG Base Excess -4.0 L ABG Hemoglobin 12.6 ABG Carboxyhemoglobin 1.9 H POC ABG HHb (Measured) 1.5 ABG Methemoglobin 0.8 ABG O2 Capacity 17.6 ABG Potassium Hgb O2 Saturation 95.7 Glucose Lactate FiO2 35.0 Sodium Potassium Chloride Carbon Dioxide Anion Gap BUN Creatinine Est GFR ( Amer) Est GFR (Non-Af Amer) Random Glucose Calcium Magnesium Total Bilirubin AST ALT Alkaline Phosphatase Troponin I NT-Pro-B Natriuret Pep Total Protein Albumin Globulin Albumin/Globulin Ratio Arterial Blood Potassium Urine Color Dark yellow Urine Appearance Clear Urine pH 6.0 Ur Specific Cool >= 1.030 Urine Protein Trace H Urine Glucose (UA) Negative Urine Ketones Negative Urine Blood Negative Urine Nitrate Negative Urine Bilirubin Negative Urine Urobilinogen 0.2 Ur Leukocyte Esterase Trace H Urine RBC Negative Urine WBC 2 - 5 Ur Epithelial Cells 0 - 2 Urine Bacteria Small Hyaline Casts 2 - 5 Salicylates Urine Opiates Screen Positive H Urine Methadone Screen Negative Ur Barbiturates Screen Negative Ur Phencyclidine Scrn Negative Ur Amphetamines Screen Negative U Benzodiazepines Scrn Negative U Oth Cocaine Metabols Negative U Cannabinoids Screen Negative Alcohol, Quantitative Influenza Typ A,B (EIA) Assessment & Plan - Assessment and Plan (Free Text) Assessment: This is a 62 year old female with PMH of COPD, HLD, depression, anxiety and heroin abuse presenting to the ED after being found confused, lethargic and stumbling in the street earlier in the afternoon. Patient is being admitted for heroin overdose. Will need to call pharmacy in AM to confirm meds: [facility] in [place] on [address] Plan: Heroin overdose -UDS positive for opiates -given narcan in ED with improvement in mentation and symptoms -initial ABG showed respiratory acidosis with pH of 7.15 and pCO2 of 68 -given Bipap with improvement of ABG to pH 7.31 and PCO2 of 44 -will give bipap overnight -repeat ABG in AM -CT head is unremarkable -clonidine prn for withdrawal -fall, aspiration, seizure precautions -vital signs, HOB 30 COPD -xopenex q6 louise -xopenex prn -afebrile, WBC of 12.5 -azithromax day 1 -solumedrol 40 q12 -blood cx pending Hx of alcohol abuse -denies any alcohol recently -CIWA, ativan prn UTI -UA shows trace leuk esterace, negative nitrate -given macrobid in ED -patient is asymptomatic, will monitor Hx of HLD -lipitor Hx of Smoking -nicotine patch PPX/Diet -lovenox -HHD Patient seen and examined with attending, Dr. Escobar <Jh Escobar A - Last Filed: 06/09/18 18:55> Results - Vital Signs Recent Vital Signs: Last Vital Signs Temp 98 F 06/09/18 16:16 Pulse 88 06/09/18 16:16 Resp 18 06/09/18 16:16 BP 110/75 06/09/18 16:16 Pulse Ox 98 06/09/18 16:16 - Labs Result Diagrams: 06/09/18 12:40 06/09/18 12:40 Labs: Laboratory Results - last 24 hr 06/09/18 06/09/18 06/09/18 12:40 12:40 12:40 WBC RBC Hgb Hct MCV MCH MCHC RDW Plt Count MPV Gran % Lymph % (Auto) Coke % (Auto) Eos % (Auto) Baso % (Auto) Gran # Lymph # (Auto) Coke # (Auto) Eos # (Auto) Baso # (Auto) pCO2 pO2 HCO3 ABG pH ABG Total CO2 ABG O2 Saturation ABG O2 Content ABG Base Excess ABG Hemoglobin ABG Carboxyhemoglobin POC ABG HHb (Measured) ABG Methemoglobin ABG O2 Capacity ABG Potassium Hgb O2 Saturation Glucose Lactate FiO2 Sodium 141 Potassium 4.1 Chloride 109 H Carbon Dioxide 24 Anion Gap 11 BUN 17 Creatinine 0.8 Est GFR ( Amer) > 60 Est GFR (Non-Af Amer) > 60 Random Glucose 144 H Calcium 9.8 Magnesium 1.9 Total Bilirubin 0.3 AST 22 ALT 24 Alkaline Phosphatase 92 Troponin I < 0.01 NT-Pro-B Natriuret Pep 73.7 Total Protein 7.6 Albumin 4.5 Globulin 3.1 Albumin/Globulin Ratio 1.4 Arterial Blood Potassium Urine Color Urine Appearance Urine pH Ur Specific Cool Urine Protein Urine Glucose (UA) Urine Ketones Urine Blood Urine Nitrate Urine Bilirubin Urine Urobilinogen Ur Leukocyte Esterase Urine RBC Urine WBC Ur Epithelial Cells Urine Bacteria Hyaline Casts Salicylates < 1 L Urine Opiates Screen Urine Methadone Screen Ur Barbiturates Screen Ur Phencyclidine Scrn Ur Amphetamines Screen U Benzodiazepines Scrn U Oth Cocaine Metabols U Cannabinoids Screen Alcohol, Quantitative < 10 Influenza Typ A,B (EIA) 06/09/18 06/09/18 06/09/18 12:40 13:03 13:09 WBC 12.5 H RBC 4.35 Hgb 13.5 Hct 40.3 MCV 92.6 MCH 31.0 MCHC 33.5 RDW 13.6 Plt Count 295 MPV 9.9 Gran % 75.1 H Lymph % (Auto) 19.6 L Coke % (Auto) 4.5 Eos % (Auto) 0.6 L Baso % (Auto) 0.2 Gran # 9.42 H Lymph # (Auto) 2.5 Coke # (Auto) 0.6 Eos # (Auto) 0.1 Baso # (Auto) 0.02 pCO2 68 H pO2 316.0 H HCO3 24.8 ABG pH 7.17 L* ABG Total CO2 26.9 ABG O2 Saturation 99.1 H ABG O2 Content ABG Base Excess -5.1 L ABG Hemoglobin ABG Carboxyhemoglobin POC ABG HHb (Measured) ABG Methemoglobin ABG O2 Capacity ABG Potassium 3.7 Hgb O2 Saturation Glucose 119 H Lactate 0.8 FiO2 100.0 Sodium 141.0 Potassium Chloride 110.0 H Carbon Dioxide Anion Gap BUN Creatinine Est GFR ( Amer) Est GFR (Non-Af Amer) Random Glucose Calcium Magnesium Total Bilirubin AST ALT Alkaline Phosphatase Troponin I NT-Pro-B Natriuret Pep Total Protein Albumin Globulin Albumin/Globulin Ratio Arterial Blood Potassium 3.7 Urine Color Urine Appearance Urine pH Ur Specific Cool Urine Protein Urine Glucose (UA) Urine Ketones Urine Blood Urine Nitrate Urine Bilirubin Urine Urobilinogen Ur Leukocyte Esterase Urine RBC Urine WBC Ur Epithelial Cells Urine Bacteria Hyaline Casts Salicylates Urine Opiates Screen Urine Methadone Screen Ur Barbiturates Screen Ur Phencyclidine Scrn Ur Amphetamines Screen U Benzodiazepines Scrn U Oth Cocaine Metabols U Cannabinoids Screen Alcohol, Quantitative Influenza Typ A,B (EIA) Negative for flu a/b 06/09/18 06/09/18 06/09/18 15:41 16:36 16:36 WBC RBC Hgb Hct MCV MCH MCHC RDW Plt Count MPV Gran % Lymph % (Auto) Coke % (Auto) Eos % (Auto) Baso % (Auto) Gran # Lymph # (Auto) Coke # (Auto) Eos # (Auto) Baso # (Auto) pCO2 44 pO2 161.0 H HCO3 22.2 ABG pH 7.31 L ABG Total CO2 23.6 ABG O2 Saturation 98.5 H ABG O2 Content 17.3 ABG Base Excess -4.0 L ABG Hemoglobin 12.6 ABG Carboxyhemoglobin 1.9 H POC ABG HHb (Measured) 1.5 ABG Methemoglobin 0.8 ABG O2 Capacity 17.6 ABG Potassium Hgb O2 Saturation 95.7 Glucose Lactate FiO2 35.0 Sodium Potassium Chloride Carbon Dioxide Anion Gap BUN Creatinine Est GFR ( Amer) Est GFR (Non-Af Amer) Random Glucose Calcium Magnesium Total Bilirubin AST ALT Alkaline Phosphatase Troponin I NT-Pro-B Natriuret Pep Total Protein Albumin Globulin Albumin/Globulin Ratio Arterial Blood Potassium Urine Color Dark yellow Urine Appearance Clear Urine pH 6.0 Ur Specific Cool >= 1.030 Urine Protein Trace H Urine Glucose (UA) Negative Urine Ketones Negative Urine Blood Negative Urine Nitrate Negative Urine Bilirubin Negative Urine Urobilinogen 0.2 Ur Leukocyte Esterase Trace H Urine RBC Negative Urine WBC 2 - 5 Ur Epithelial Cells 0 - 2 Urine Bacteria Small Hyaline Casts 2 - 5 Salicylates Urine Opiates Screen Positive H Urine Methadone Screen Negative Ur Barbiturates Screen Negative Ur Phencyclidine Scrn Negative Ur Amphetamines Screen Negative U Benzodiazepines Scrn Negative U Oth Cocaine Metabols Negative U Cannabinoids Screen Negative Alcohol, Quantitative Influenza Typ A,B (EIA) Attending/Attestation - Attestation I have personally seen and examined this patient.: Yes I have fully participated in the care of the patient.: Yes I have reviewed all pertinent clinical information: Yes Notes (Text): 06/09/18 18:50 62 year old female with past medical history of COPD, depression and substance (heroin) abuse who presents after being found lethargic likely secondary to h eroin overdose. She responded to narcan. She also initially had respiratory distress with ABG showed respiratory acidosis which improved with bipap. Wheezing also improved with iv steroids. CT head and CXR were negative. Urine drug screen was positive for opiates. Will start on iv steroids and xopenex. Repeat ABG in AM. Counselled on risks of continued substance abuse. Counselled on smoking/alcohol abstinence. Monitor for withdrawal symptoms. Patient initially wanted to sign out AMA from ER but has decided to stay for now. Sister is also at bedside and questions were answered. Jh Escobar MD Hospitalist.
[2018-06-09] MEDS: Azithromycin 500MG/NS 250ml 500 MG/250 ML BAG IVPB SCH (18:06)
[2018-06-09] MEDS: Levalbuterol 0.63 MG/3 ML Inhal Soln UD IH SCH (18:06)
[2018-06-09 20:08] LABS: ARTERIAL BLOOD GAS HCO3 19.7 mmol/L (21-28); ARTERIAL BLOOD GAS HEMOGLOBIN 11.3 g/dL (11.7-17.4); ARTERIAL BLOOD GAS O2 CAPACITY 15.8 mL/dl (16-24); ARTERIAL BLOOD GAS O2 CONTENT 15.4 ML/dl (15-23); ARTERIAL BLOOD GAS O2 SAT 97.5 % (95-98); ARTERIAL BLOOD GAS PCO2 41 mm/Hg (35-45); ARTERIAL BLOOD GAS PH 7.29 (7.35-7.45)
[2018-06-09] MEDS: MethylPREDNISolone 40 mg Vial IVP SCH (21:42)
[2018-06-10] MEDS: Levalbuterol 0.63 MG/3 ML Inhal Soln UD IH SCH ×4 (01:11→20:18)
[2018-06-10 01:33] VITALS: RESP 20
--- NOTE | 2018-06-10 07:01 | CP.PCM.PN ---
Objective - Vital Signs/Intake and Output Vital Signs (last 24 hours): Temp Pulse Resp BP Pulse Ox 98.6 F 63 20 92/59 L 99 06/10/18 01:33 06/10/18 01:33 06/10/18 01:33 06/10/18 01:33 06/10/18 01:33 Intake and Output: 06/10/18 06/10/18 06:59 18:59 Intake Total 240 Output Total 390 Balance -150 - Medications Medications: Current Medications Acetaminophen (Tylenol 325mg Tab) 650 mg PO Q6H PRN PRN Reason: Fever >100.4 F Atorvastatin Calcium (Lipitor) 20 mg PO HS COCO Last Admin: 06/09/18 21:40 Dose: 20 mg Clonidine HCl (Catapres) 0.1 mg PO Q8H PRN PRN Reason: opioid withdrawal symptoms Enoxaparin Sodium (Lovenox) 40 mg SC DAILY [facility]; Protocol Azithromycin (Zithromax 500mg In Ns) 500 mg in 250 mls @ 167 mls/hr IVPB DAILY [facility]; Protocol Last Admin: 06/09/18 18:06 Dose: 167 mls/hr Levalbuterol HCl (Xopenex) 0.63 mg IH Q6H [facility] Last Admin: 06/10/18 01:11 Dose: 0.63 mg Levalbuterol HCl (Xopenex) 0.63 mg IH Q2H PRN PRN Reason: Shortness of Breath Lorazepam (Ativan) 1 mg IVP Q6H PRN; Protocol PRN Reason: Anxiety Methylprednisolone (Solu-Medrol) 40 mg IVP Q12H [facility] Last Admin: 06/09/18 21:42 Dose: 40 mg Nicotine (Nicoderm Cq) 1 patch TD DAILY [facility]OC[facility] - Labs Labs: 06/09/18 12:40 06/09/18 12:40
[2018-06-10 07:51] LABS: BASO # 0.01 K/mm3 (0.0-2.0); BASO % 0.1 % (0.0-3.0); GRAN # 8.43 (1.4-6.5); GRAN % 79.3 % (50.0-68.0); HEMOGLOBIN 11.7 g/dL (12.0-16.0); LYMPH # 1.6 (1.2-3.4); MEAN CELL VOLUME 92.4 fl (80.0-105.0); MEAN CORPUSCULAR HEMOGLOBIN 29.6 pg (25.0-35.0); MEAN CORPUSCULAR HGB CONC 32.1 g/dl (31.0-37.0); MEAN PLATELET VOLUME 9.9 fl (7.0-11.0); MONO # 0.6 (0.1-0.6); MONO % 5.6 % (1.0-6.0); RBC 3.95 10^6/uL (3.5-6.1); RED CELL DISTRIBUTION WIDTH 13.6 % (11.5-14.5); WHITE BLOOD COUNT 10.6 10^3/uL (4.5-11.0)
[2018-06-10 08:16] LABS: ALB/GLOB RATIO 1.4 (1.1-1.8); ALBUMIN 3.8 g/dL (3.0-4.8); ALT/SGPT 25 U/L (7-56); AST/SGOT 18 U/L (14-36); BLOOD UREA NITROGEN 13 mg/dL (7-21); CALCIUM 9.2 mg/dL (8.4-10.5); GFR NON-AFRICAN AMERICAN > 60
[2018-06-10] MEDS: Azithromycin 500MG/NS 250ml 500 MG/250 ML BAG IVPB SCH (10:22)
[2018-06-10] MEDS: MethylPREDNISolone 40 mg Vial IVP SCH ×2 (10:22→21:31)
[2018-06-10] MEDS: Enoxaparin 40 mg Syringe SC SCH (10:22)
--- NOTE | 2018-06-10 15:04 | CP.PCM.PN ---
<Kirstie Farmer - Last Filed: 06/10/18 15:17> Subjective - Date & Time of Evaluation Date of Evaluation: 06/10/18 Time of Evaluation: 15:00 - Subjective Subjective: Kirstie Farmer DO, PGY-2: Hospitalist Progress Note for Dr. Escobar Patient was seen and examined at bedside. Patient reports not sleeping well overnight. Patient keeps requesting when she will be able to leave. On a second encounter patient is shaky, anxious appearing and request to stay for another night. Rhonchi still present on physical exam. Objective - Vital Signs/Intake and Output Vital Signs (last 24 hours): Temp Pulse Resp BP Pulse Ox 98.1 F 73 20 119/85 99 06/10/18 11:51 06/10/18 11:51 06/10/18 11:51 06/10/18 11:51 06/10/18 01:33 Intake and Output: 06/10/18 06/10/18 06:59 18:59 Intake Total 240 Output Total 390 Balance -150 - Medications Medications: Current Medications Acetaminophen (Tylenol 325mg Tab) 650 mg PO Q6H PRN PRN Reason: Fever >100.4 F Atorvastatin Calcium (Lipitor) 20 mg PO HS LOUISE Last Admin: 06/09/18 21:40 Dose: 20 mg Clonidine HCl (Catapres) 0.1 mg PO Q8H PRN PRN Reason: opioid withdrawal symptoms Enoxaparin Sodium (Lovenox) 40 mg SC DAILY LOUISE; Protocol Last Admin: 06/10/18 10:22 Dose: 40 mg Azithromycin (Zithromax 500mg In Ns) 500 mg in 250 mls @ 167 mls/hr IVPB DAILY LOUISE; Protocol Last Admin: 06/10/18 10:22 Dose: 167 mls/hr Levalbuterol HCl (Xopenex) 0.63 mg IH Q6H LOUISE Last Admin: 06/10/18 13:22 Dose: 0.63 mg Levalbuterol HCl (Xopenex) 0.63 mg IH Q2H PRN PRN Reason: Shortness of Breath Lorazepam (Ativan) 1 mg IVP Q6H PRN; Protocol PRN Reason: Anxiety Methadone HCl (Methadone) 10 mg PO DAILY LOUISE Methylprednisolone (Solu-Medrol) 30 mg IVP Q12 LOUISE Nicotine (Nicoderm Cq) 1 patch TD DAILY [facility] Last Admin: 06/10/18 10:22 Dose: 1 patch - Labs Labs: 06/10/18 06:45 06/10/18 06:45 - Constitutional Appears: Older Than Stated Age - Head Exam Head Exam: ATRAUMATIC, NORMOCEPHALIC - Eye Exam Eye Exam: EOMI, Normal appearance - ENT Exam ENT Exam: Mucous Membranes Moist - Neck Exam Neck Exam: Normal Inspection - Respiratory Exam Respiratory Exam: Rhonchi (bilaterally). absent: Accessory Muscle Use - Cardiovascular Exam Cardiovascular Exam: RRR, +S1, +S2 - GI/Abdominal Exam GI & Abdominal Exam: Soft, Normal Bowel Sounds - Extremities Exam Extremities Exam: Normal Inspection. absent: Calf Tenderness - Back Exam Back Exam: NORMAL INSPECTION. absent: CVA tenderness (L), CVA tenderness (R) - Neurological Exam Neurological Exam: Awake - Psychiatric Exam Psychiatric exam: Anxious - Skin Additional comments: some sweating on forehead Assessment and Plan - Assessment and Plan (Free Text) Assessment: This is a 62 year old female with PMH of COPD, HLD, depression, anxiety and heroin abuse presenting to the ED after being found confused, lethargic and stumbling in the street earlier in the afternoon. Patient is being admitted for heroin overdose. Will need to call pharmacy in AM to confirm meds: [facility] in [place] [address]. Plan: Heroin overdose -UDS positive for opiates -given narcan in ED with improvement in mentation and symptoms -initial ABG showed respiratory acidosis with pH of 7.15 and pCO2 of 68 -given Bipap with improvement of ABG to pH 7.31 and PCO2 of 44 -will give bipap overnight -CT head is unremarkable -clonidine prn for withdrawal -fall, aspiration, seizure precautions -vital signs, HOB 30 -Metadone 10 mg for opiod withdrawal; will re- assess tomorrow COPD -xopenex q6 louise -xopenex prn -afebrile, WBC of 12.5 -azithromax day 2 -solumedrol 30 q12 -blood culture negative - Chest X ray shows no infiltrate or pneumonia Hx of alcohol abuse -denies any alcohol recently -CIWA, ativan prn UTI -UA shows trace leuk esterace, negative nitrate -given macrobid in ED -patient is asymptomatic, will monitor - Hx of HLD -lipitor Hx of Smoking -nicotine patch will increase to 21 mg starting tomorrow PPX/Diet -lovenox -HHD Patient seen and examined with attending, Dr. Escobar <Jh Escobar - Last Filed: 06/10/18 15:36> Objective - Vital Signs/Intake and Output Vital Signs (last 24 hours): Temp Pulse Resp BP Pulse Ox 98.1 F 73 20 119/85 99 06/10/18 11:51 06/10/18 11:51 06/10/18 11:51 06/10/18 11:51 06/10/18 01:33 Intake and Output: 06/10/18 06/10/18 06:59 18:59 Intake Total 240 Output Total 390 Balance -150 - Medications Medications: Current Medications Acetaminophen (Tylenol 325mg Tab) 650 mg PO Q6H PRN PRN Reason: Fever >100.4 F Atorvastatin Calcium (Lipitor) 20 mg PO HS LOUISE Last Admin: 06/09/18 21:40 Dose: 20 mg Clonidine HCl (Catapres) 0.1 mg PO Q8H PRN PRN Reason: opioid withdrawal symptoms Enoxaparin Sodium (Lovenox) 40 mg SC DAILY LOUISE; Protocol Last Admin: 06/10/18 10:22 Dose: 40 mg Azithromycin (Zithromax 500mg In Ns) 500 mg in 250 mls @ 167 mls/hr IVPB DAILY [facility]; Protocol Last Admin: 06/10/18 10:22 Dose: 167 mls/hr Levalbuterol HCl (Xopenex) 0.63 mg IH Q6H [facility]OU[facility] Last Admin: 06/10/18 13:22 Dose: 0.63 mg Levalbuterol HCl (Xopenex) 0.63 mg IH Q2H PRN PRN Reason: Shortness of Breath Lorazepam (Ativan) 1 mg IVP Q6H PRN; Protocol PRN Reason: Anxiety Methylprednisolone (Solu-Medrol) 30 mg IVP Q12 LOUISE Nicotine (Nicoderm Cq) 1 patch TD DAILY LOUISE - Labs Labs: 06/10/18 06:45 06/10/18 06:45 Attending/Attestation - Attestation I have personally seen and examined this patient.: Yes I have fully participated in the care of the patient.: Yes I have reviewed all pertinent clinical information, including history, physical exam and plan: Yes Notes (Text): 06/10/18 15:33 62 year old female with past medical history of COPD, depression and substance (heroin) abuse who presents after being found lethargic likely secondary to heroin overdose. She responded to narcan. She also initially had respiratory distress with ABG showed respiratory acidosis which improved with bipap. CT head and CXR were negative. Urine drug screen was positive for opiates. Today wheezing has improved. However patient reports insomnia, tremor, anxiety. She is on ativan prn and given a dose of methadone for withdrawal symptoms. Counselled on risks of continued substance abuse. Counselled on smoking cessation. Will taper steroids today. Jh Escobar MD Hospitalist.
[2018-06-11] MEDS: Levalbuterol 0.63 MG/3 ML Inhal Soln UD IH SCH ×3 (01:53→13:11)
[2018-06-11 06:51] VITALS: O2SAT 98
[2018-06-11 07:12] LABS: BASO # 0.01 K/mm3 (0.0-2.0); BASO % 0.1 % (0.0-3.0); GRAN # 5.67 (1.4-6.5); GRAN % 70.3 % (50.0-68.0); HEMOGLOBIN 12.1 g/dL (12.0-16.0); LYMPH # 1.9 (1.2-3.4); LYMPH % 24.1 % (22.0-35.0); MEAN CELL VOLUME 91.8 fl (80.0-105.0); MEAN CORPUSCULAR HEMOGLOBIN 30.1 pg (25.0-35.0); MEAN CORPUSCULAR HGB CONC 32.8 g/dl (31.0-37.0); MEAN PLATELET VOLUME 10.1 fl (7.0-11.0); MONO # 0.4 (0.1-0.6); MONO % 5.5 % (1.0-6.0); RBC 4.02 10^6/uL (3.5-6.1); RED CELL DISTRIBUTION WIDTH 13.5 % (11.5-14.5); WHITE BLOOD COUNT 8.1 10^3/uL (4.5-11.0)
[2018-06-11 07:23] LABS: ALB/GLOB RATIO 1.4 (1.1-1.8); ALBUMIN 3.9 g/dL (3.0-4.8); ALT/SGPT 24 U/L (7-56); AST/SGOT 22 U/L (14-36); BLOOD UREA NITROGEN 16 mg/dL (7-21); CALCIUM 9.2 mg/dL (8.4-10.5); GFR NON-AFRICAN AMERICAN > 60
[2018-06-11] MEDS: MethylPREDNISolone 40 mg Vial IVP SCH (09:30)
[2018-06-11] MEDS: Enoxaparin 40 mg Syringe SC SCH (09:31)
[2018-06-11] MEDS: Azithromycin 500MG/NS 250ml 500 MG/250 ML BAG IVPB SCH ×2 (09:32→10:47)
[2018-06-11 12:27] VITALS: BP 128/74; PULSE 64; TEMP 98.4
--- NOTE | 2018-06-11 14:44 | CP.PCM.DIS ---
<Kirstie Farmer - Last Filed: 06/11/18 14:45> Provider - Provider Date of Admission: 06/10/18 15:31 Attending physician: Jh Escobar MD Primary care physician: NO PRIMARY CARE PROVIDER Time Spent in preparation of Discharge (in minutes): 35 Hospital Course - Lab Results Lab Results: Micro Results 06/09/18 14:30 Blood-Venous Blood Culture - Preliminary NO GROWTH AFTER 48 HOURS 06/09/18 14:00 Blood-Venous Blood Culture - Preliminary NO GROWTH AFTER 48 HOURS 06/09/18 22:40 Urine,Clean Catch Urine Culture - Final No Growth (<1,000 CFU/ML) Most Recent Lab Values WBC 8.1 10^3/uL (4.5-11.0) D 06/11/18 06:45 RBC 4.02 10^6/uL (3.5-6.1) 06/11/18 06:45 Hgb 12.1 g/dL (12.0-16.0) 06/11/18 06:45 Hct 36.9 % (36.0-48.0) 06/11/18 06:45 MCV 91.8 fl (80.0-105.0) 06/11/18 06:45 MCH 30.1 pg (25.0-35.0) 06/11/18 06:45 MCHC 32.8 g/dl (31.0-37.0) 06/11/18 06:45 RDW 13.5 % (11.5-14.5) 06/11/18 06:45 Plt Count 236 10^3/uL (120.0-450.0) 06/11/18 06:45 MPV 10.1 fl (7.0-11.0) 06/11/18 06:45 Gran % 70.3 % (50.0-68.0) H 06/11/18 06:45 Lymph % (Auto) 24.1 % (22.0-35.0) 06/11/18 06:45 [place] % (Auto) 5.5 % (1.0-6.0) 06/11/18 06:45 Eos % (Auto) 0.0 % (1.5-5.0) L 06/11/18 06:45 Baso % (Auto) 0.1 % (0.0-3.0) 06/11/18 06:45 Gran # 5.67 (1.4-6.5) 06/11/18 06:45 Lymph # (Auto) 1.9 (1.2-3.4) 06/11/18 06:45 [place] # (Auto) 0.4 (0.1-0.6) 06/11/18 06:45 Eos # (Auto) 0.0 (0.0-0.7) 06/11/18 06:45 Baso # (Auto) 0.01 K/mm3 (0.0-2.0) 06/11/18 06:45 pCO2 41 mm/Hg (35-45) 06/09/18 20:04 pO2 106.0 mm/Hg (80-100) H 06/09/18 20:04 HCO3 19.7 mmol/L (21-28) L 06/09/18 20:04 ABG pH 7.29 (7.35-7.45) L 06/09/18 20:04 ABG Total CO2 21.0 mmol.L (22-28) L 06/09/18 20:04 ABG O2 Saturation 97.5 % (95-98) 06/09/18 20:04 ABG O2 Content 15.4 ML/dl (15-23) 06/09/18 20:04 ABG Base Excess -6.5 mmol/L (-2.0-3.0) L 06/09/18 20:04 ABG Hemoglobin 11.3 g/dL (11.7-17.4) L 06/09/18 20:04 ABG Carboxyhemoglobin 1.0 % (0.5-1.5) 06/09/18 20:04 POC ABG HHb (Measured) 2.5 % (0-5) 06/09/18 20:04 ABG Methemoglobin 0.5 % (0.0-3.0) 06/09/18 20:04 ABG O2 Capacity 15.8 mL/dl (16-24) L 06/09/18 20:04 ABG Potassium 3.7 mmol/L (3.6-5.2) 06/09/18 13:09 Hgb O2 Saturation 96.0 % (95.0-98.0) 06/09/18 20:04 Sodium 141.0 mmol/L (132-148) 06/09/18 13:09 Chloride 110.0 mmol/L (98-107) H 06/09/18 13:09 Glucose 119 mg/dl (65-105) H 06/09/18 13:09 Lactate 0.8 mmol/L (0.7-2.1) 06/09/18 13:09 FiO2 28.0 % 06/09/18 20:04 Sodium 137 mmol/L (132-148) 06/11/18 06:45 Potassium 4.4 mmol/L (3.6-5.0) 06/11/18 06:45 Chloride 105 mmol/L (98-107) 06/11/18 06:45 Carbon Dioxide 29 mmol/L (21-33) 06/11/18 06:45 Anion Gap 7 (10-20) L 06/11/18 06:45 BUN 16 mg/dL (7-21) 06/11/18 06:45 Creatinine 0.6 mg/dl (0.7-1.2) L 06/11/18 06:45 Est GFR ( Amer) > 60 06/11/18 06:45 Est GFR (Non-Af Amer) > 60 06/11/18 06:45 POC Glucose (mg/dL) 143 mg/dL (65-110) H 06/09/18 21:30 Random Glucose 95 mg/dL (70-110) 06/11/18 06:45 Calcium 9.2 mg/dL (8.4-10.5) 06/11/18 06:45 Magnesium 1.9 mg/dL (1.7-2.2) 06/09/18 12:40 Total Bilirubin 0.3 mg/dL (0.2-1.3) 06/11/18 06:45 AST 22 U/L (14-36) 06/11/18 06:45 ALT 24 U/L (7-56) 06/11/18 06:45 Alkaline Phosphatase 69 U/L (38-126) 06/11/18 06:45 Troponin I < 0.01 ng/mL 06/09/18 12:40 NT-Pro-B Natriuret Pep 73.7 pg/mL (0-450) 06/09/18 12:40 Total Protein 6.8 g/dL (5.8-8.3) 06/11/18 06:45 Albumin 3.9 g/dL (3.0-4.8) 06/11/18 06:45 Globulin 2.9 gm/dL 06/11/18 06:45 Albumin/Globulin Ratio 1.4 (1.1-1.8) 06/11/18 06:45 Arterial Blood Potassium 3.7 mmol/L (3.6-5.2) 06/09/18 13:09 Urine Color Dark yellow (YELLOW) 06/09/18 16:36 Urine Appearance Clear (CLEAR) 06/09/18 16:36 Urine pH 6.0 (4.7-8.0) 06/09/18 16:36 Ur Specific [place] >= 1.030 (1.005-1.035) 06/09/18 16:36 Urine Protein Trace mg/dL (<30 mg/dL) H 06/09/18 16:36 Urine Glucose (UA) Negative mg/dL (NEGATIVE) 06/09/18 16:36 Urine Ketones Negative mg/dL (NEGATIVE) 06/09/18 16:36 Urine Blood Negative (NEGATIVE) 06/09/18 16:36 Urine Nitrate Negative (NEGATIVE) 06/09/18 16:36 Urine Bilirubin Negative (NEGATIVE) 06/09/18 16:36 Urine Urobilinogen 0.2 E.U./dL (<1 E.U./dL) 06/09/18 16:36 Ur Leukocyte Esterase Trace Lashae/uL (NEGATIVE) H 06/09/18 16:36 Urine RBC Negative /hpf (0-2) 06/09/18 16:36 Urine WBC 2 - 5 /hpf (0-6) 06/09/18 16:36 Ur Epithelial Cells 0 - 2 /hpf (0-5) 06/09/18 16:36 Urine Bacteria Small /hpf (NONE) 06/09/18 16:36 Hyaline Casts 2 - 5 /hpf (NONE) 06/09/18 16:36 Salicylates < 1 mg/dL (2.0-20.0) L 06/09/18 12:40 Urine Opiates Screen Positive (NEGATIVE) H 06/09/18 16:36 Urine Methadone Screen Negative (NEGATIVE) 06/09/18 16:36 Ur Barbiturates Screen Negative (NEGATIVE) 06/09/18 16:36 Ur Phencyclidine Scrn Negative (NEGATIVE) 06/09/18 16:36 Ur Amphetamines Screen Negative (NEGATIVE) 06/09/18 16:36 U Benzodiazepines Scrn Negative (NEGATIVE) 06/09/18 16:36 U Oth Cocaine Metabols Negative (NEGATIVE) 06/09/18 16:36 U Cannabinoids Screen Negative (NEGATIVE) 06/09/18 16:36 Alcohol, Quantitative < 10 mg/dL (0-10) 06/09/18 12:40 Influenza Typ A,B (EIA) Negative for flu a/b (NEGATIVE) 06/09/18 13:03 - Hospital Course Hospital Course: 62 year old female with PMH of COPD, HLD, depression, anxiety and heroin abuse presenting to the ED after being found confused, lethargic and stumbling in the street earlier in the afternoon. She was given Narcan initially for what appeared to be a heroin overdose. She was found to have a respiratory acidosis along with a COPD exacerbation. Chest X-ray showed no infiltrate. For her respiratory acidosis she was placed on BIPAP. For her COPD she was given 3 days of 500 mg of Azithromycin, IV Solumedrol, and Duonebs. She was also kept on a CIWA and given a one time dose of 10 mg of Methadone for opiod withdrawal symptoms. She was counselled on abstaining from alcohol, illicit, drugs and smoking. She was given a prescription PO Steroids and Nicotine patches, 6 weeks supply as written below. - Date & Time of H&P Date of H&P: 06/11/18 Time of H&P: 14:51 Discharge Exam - Head Exam Head Exam: ATRAUMATIC, NORMOCEPHALIC - Eye Exam Eye Exam: EOMI, Normal appearance - ENT Exam ENT Exam: Mucous Membranes Moist, Normal Oropharynx - Neck Exam Neck exam: Normal Inspection - Respiratory Exam Respiratory Exam: NORMAL BREATHING PATTERN - Cardiovascular Exam Cardiovascular Exam: RRR, +S1, +S2 - Extremities Exam Extremities exam: normal inspection - Neurological Exam Neurological exam: Alert, CN II-XII Intact, Oriented x3 - Psychiatric Exam Psychiatric exam: Normal Affect, Normal Mood - Skin Skin Exam: Dry, Intact, Normal Color, Warm Discharge Plan - Discharge Medications Prescriptions: RX: Nicotine 14 mg/24 hr [Nicoderm CQ] 1 each TD DAILY #14 patch RX: Nicotine 21 mg/24 hr [Nicoderm Cq] 1 patch TD DAILY #14 patch RX: Nicotine 7 mg/24 hr [Nicoderm CQ] 7 mg TD DAILY #14 patch predniSONE [Prednisone] 40 mg PO DAILY #5 tab - Follow Up Plan Condition: GUARDED Disposition: HOME/ ROUTINE Instructions: Quitting Smoking, Narcotic Overdose (DC), Opioid Use Disorder Additional Instructions: 1) You are to follow up with a PMD within one week of the day you are discharged. 2) You are being given a prescription for nicotine patches, 21 mg for the first two weeks, 14 mg for weeks 3 an 4, and 7 mg for weeks 5 and 6. You cannot smoke with the patch. Take as directed. 3) You are to take Prednisone as directed, one tablet daily for a total of five days. 4) You must avoid smoking, alcohol, and the illicit use of drugs. Referrals: PCP,SHYLA [Primary Care Provider] - <Pantera Diaz - Last Filed: 06/11/18 18:21> Provider - Provider Date of Admission: 06/10/18 15:31 Attending physician: Jh Escobar MD Primary care physician: SHYLA PRIMARY CARE PROVIDER Hospital Course - Lab Results Lab Results: Micro Results 06/09/18 14:30 Blood-Venous Blood Culture - Preliminary NO GROWTH AFTER 48 HOURS 06/09/18 14:00 Blood-Venous Blood Culture - Preliminary NO GROWTH AFTER 48 HOURS 06/09/18 22:40 Urine,Clean Catch Urine Culture - Final No Growth (<1,000 CFU/ML) Most Recent Lab Values WBC 8.1 10^3/uL (4.5-11.0) D 06/11/18 06:45 RBC 4.02 10^6/uL (3.5-6.1) 06/11/18 06:45 Hgb 12.1 g/dL (12.0-16.0) 06/11/18 06:45 Hct 36.9 % (36.0-48.0) 06/11/18 06:45 MCV 91.8 fl (80.0-105.0) 06/11/18 06:45 MCH 30.1 pg (25.0-35.0) 06/11/18 06:45 MCHC 32.8 g/dl (31.0-37.0) 06/11/18 06:45 RDW 13.5 % (11.5-14.5) 06/11/18 06:45 Plt Count 236 10^3/uL (120.0-450.0) 06/11/18 06:45 MPV 10.1 fl (7.0-11.0) 06/11/18 06:45 Gran % 70.3 % (50.0-68.0) H 06/11/18 06:45 Lymph % (Auto) 24.1 % (22.0-35.0) 06/11/18 06:45 [place] % (Auto) 5.5 % (1.0-6.0) 06/11/18 06:45 Eos % (Auto) 0.0 % (1.5-5.0) L 06/11/18 06:45 Baso % (Auto) 0.1 % (0.0-3.0) 06/11/18 06:45 Gran # 5.67 (1.4-6.5) 06/11/18 06:45 Lymph # (Auto) 1.9 (1.2-3.4) 06/11/18 06:45 [place] # (Auto) 0.4 (0.1-0.6) 06/11/18 06:45 Eos # (Auto) 0.0 (0.0-0.7) 06/11/18 06:45 Baso # (Auto) 0.01 K/mm3 (0.0-2.0) 06/11/18 06:45 pCO2 41 mm/Hg (35-45) 06/09/18 20:04 pO2 106.0 mm/Hg (80-100) H 06/09/18 20:04 HCO3 19.7 mmol/L (21-28) L 06/09/18 20:04 ABG pH 7.29 (7.35-7.45) L 06/09/18 20:04 ABG Total CO2 21.0 mmol.L (22-28) L 06/09/18 20:04 ABG O2 Saturation 97.5 % (95-98) 06/09/18 20:04 ABG O2 Content 15.4 ML/dl (15-23) 06/09/18 20:04 ABG Base Excess -6.5 mmol/L (-2.0-3.0) L 06/09/18 20:04 ABG Hemoglobin 11.3 g/dL (11.7-17.4) L 06/09/18 20:04 ABG Carboxyhemoglobin 1.0 % (0.5-1.5) 06/09/18 20:04 POC ABG HHb (Measured) 2.5 % (0-5) 06/09/18 20:04 ABG Methemoglobin 0.5 % (0.0-3.0) 06/09/18 20:04 ABG O2 Capacity 15.8 mL/dl (16-24) L 06/09/18 20:04 ABG Potassium 3.7 mmol/L (3.6-5.2) 06/09/18 13:09 Hgb O2 Saturation 96.0 % (95.0-98.0) 06/09/18 20:04 Sodium 141.0 mmol/L (132-148) 06/09/18 13:09 Chloride 110.0 mmol/L (98-107) H 06/09/18 13:09 Glucose 119 mg/dl (65-105) H 06/09/18 13:09 Lactate 0.8 mmol/L (0.7-2.1) 06/09/18 13:09 FiO2 28.0 % 06/09/18 20:04 Sodium 137 mmol/L (132-148) 06/11/18 06:45 Potassium 4.4 mmol/L (3.6-5.0) 06/11/18 06:45 Chloride 105 mmol/L (98-107) 06/11/18 06:45 Carbon Dioxide 29 mmol/L (21-33) 06/11/18 06:45 Anion Gap 7 (10-20) L 06/11/18 06:45 BUN 16 mg/dL (7-21) 06/11/18 06:45 Creatinine 0.6 mg/dl (0.7-1.2) L 06/11/18 06:45 Est GFR ( Amer) > 60 06/11/18 06:45 Est GFR (Non-Af Amer) > 60 06/11/18 06:45 POC Glucose (mg/dL) 143 mg/dL (65-110) H 06/09/18 21:30 Random Glucose 95 mg/dL (70-110) 06/11/18 06:45 Calcium 9.2 mg/dL (8.4-10.5) 06/11/18 06:45 Magnesium 1.9 mg/dL (1.7-2.2) 06/09/18 12:40 Total Bilirubin 0.3 mg/dL (0.2-1.3) 06/11/18 06:45 AST 22 U/L (14-36) 06/11/18 06:45 ALT 24 U/L (7-56) 06/11/18 06:45 Alkaline Phosphatase 69 U/L (38-126) 06/11/18 06:45 Troponin I < 0.01 ng/mL 06/09/18 12:40 NT-Pro-B Natriuret Pep 73.7 pg/mL (0-450) 06/09/18 12:40 Total Protein 6.8 g/dL (5.8-8.3) 06/11/18 06:45 Albumin 3.9 g/dL (3.0-4.8) 06/11/18 06:45 Globulin 2.9 gm/dL 06/11/18 06:45 Albumin/Globulin Ratio 1.4 (1.1-1.8) 06/11/18 06:45 Arterial Blood Potassium 3.7 mmol/L (3.6-5.2) 06/09/18 13:09 Urine Color Dark yellow (YELLOW) 06/09/18 16:36 Urine Appearance Clear (CLEAR) 06/09/18 16:36 Urine pH 6.0 (4.7-8.0) 06/09/18 16:36 Ur Specific [place] >= 1.030 (1.005-1.035) 06/09/18 16:36 Urine Protein Trace mg/dL (<30 mg/dL) H 06/09/18 16:36 Urine Glucose (UA) Negative mg/dL (NEGATIVE) 06/09/18 16:36 Urine Ketones Negative mg/dL (NEGATIVE) 06/09/18 16:36 Urine Blood Negative (NEGATIVE) 06/09/18 16:36 Urine Nitrate Negative (NEGATIVE) 06/09/18 16:36 Urine Bilirubin Negative (NEGATIVE) 06/09/18 16:36 Urine Urobilinogen 0.2 E.U./dL (<1 E.U./dL) 06/09/18 16:36 Ur Leukocyte Esterase Trace Lashae/uL (NEGATIVE) H 06/09/18 16:36 Urine RBC Negative /hpf (0-2) 06/09/18 16:36 Urine WBC 2 - 5 /hpf (0-6) 06/09/18 16:36 Ur Epithelial Cells 0 - 2 /hpf (0-5) 06/09/18 16:36 Urine Bacteria Small /hpf (NONE) 06/09/18 16:36 Hyaline Casts 2 - 5 /hpf (NONE) 06/09/18 16:36 Salicylates < 1 mg/dL (2.0-20.0) L 06/09/18 12:40 Urine Opiates Screen Positive (NEGATIVE) H 06/09/18 16:36 Urine Methadone Screen Negative (NEGATIVE) 06/09/18 16:36 Ur Barbiturates Screen Negative (NEGATIVE) 06/09/18 16:36 Ur Phencyclidine Scrn Negative (NEGATIVE) 06/09/18 16:36 Ur Amphetamines Screen Negative (NEGATIVE) 06/09/18 16:36 U Benzodiazepines Scrn Negative (NEGATIVE) 06/09/18 16:36 U Oth Cocaine Metabols Negative (NEGATIVE) 06/09/18 16:36 U Cannabinoids Screen Negative (NEGATIVE) 06/09/18 16:36 Alcohol, Quantitative < 10 mg/dL (0-10) 06/09/18 12:40 Influenza Typ A,B (EIA) Negative for flu a/b (NEGATIVE) 06/09/18 13:03 Attending/Attestation - Attestation I have personally seen and examined this patient.: Yes I have fully participated in the care of the patient.: Yes I have reviewed all pertinent clinical information, including history, physical exam and plan: Yes
== END 2018-06-11 14:16 | disposition home or self-care (01) | DRG 449 ==
LOC: ED 12:18 → ERH 16:09 → 2RSO 20:22 → OBSVTOIN 06-10 15:31
PROVIDERS: ADMIT Internal Medicine; ATTEND Internal Medicine
DX: T40.1X1A Poisoning by heroin, accidental (unintentional), initial encounter (principal); E87.2 Acidosis; J44.1 Chronic obstructive pulmonary disease with (acute) exacerbation; F11.90 Opioid use, unspecified, uncomplicated; R09.02 Hypoxemia; F17.210 Nicotine dependence, cigarettes, uncomplicated; F31.9 Bipolar disorder, unspecified; F41.0 Panic disorder [episodic paroxysmal anxiety]; F43.10 Post-traumatic stress disorder, unspecified; E78.5 Hyperlipidemia, unspecified; G47.00 Insomnia, unspecified; F10.11 Alcohol abuse, in remission; Z87.440 Personal history of urinary (tract) infections; Z88.0 Allergy status to penicillin; Z88.2 Allergy status to sulfonamides; Z90.49 Acquired absence of other specified parts of digestive tract; Z86.69 Personal history of other diseases of the nervous system and sense organs; Z91.81 History of falling

== ENCOUNTER 2018-06-16 14:12 | Emergency (ER) | payer MEDICAID ==
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
[2018-06-16 14:36] VITALS: BMI 22.1
[2018-06-16] MEDS ORDERED: Naloxone 0.4 mg/ml Inj (Adult) IVP STA (14:37)
[2018-06-16 15:04] VITALS: RESP 18
[2018-06-16 18:59] VITALS: BP 110/69; PULSE 80; TEMP 99.4; O2SAT 96
--- NOTE | 2018-06-16 21:50 | CARD ---
APPROVED REPORT Date of service: 06/16/2018 EKG Measurement Heart [id number] <Conclusion> Normal sinus rhythm Nonspecific ST abnormality Abnormal ECG
== END 2018-06-16 19:18 | disposition home or self-care (01) ==
LOC: ED 14:12
DX: T40.2X1A Poisoning by other opioids, accidental (unintentional), initial encounter (principal); F11.10 Opioid abuse, uncomplicated; Y92.89 Other specified places as the place of occurrence of the external cause; I10 Essential (primary) hypertension; F17.210 Nicotine dependence, cigarettes, uncomplicated
CPT/HCPCS: 93005; 96374; 99284; J2310

== ENCOUNTER 2018-06-28 14:42 | Inpatient (IN) | payer MEDICAID ==
[2018-06-28] MEDS ORDERED: Sodium Chloride 0.9% 1,000 ML IV STA (15:16)
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
[2018-06-28 15:48] LABS: BASO # 0.01 K/mm3 (0.0-2.0); BASO % 0.2 % (0.0-3.0); EOS % 0.6 % (1.5-5.0); GRAN # 3.48 (1.4-6.5); GRAN % 69.4 % (50.0-68.0); LYMPH # 1.2 (1.2-3.4); LYMPH % 23.8 % (22.0-35.0); MEAN CELL VOLUME 91.9 fl (80.0-105.0); MEAN CORPUSCULAR HEMOGLOBIN 30.4 pg (25.0-35.0); MEAN CORPUSCULAR HGB CONC 33.1 g/dl (31.0-37.0); MEAN PLATELET VOLUME 9.9 fl (7.0-11.0); MONO # 0.3 (0.1-0.6); RBC 3.95 10^6/uL (3.5-6.1); RED CELL DISTRIBUTION WIDTH 14.2 % (11.5-14.5)
[2018-06-28 15:50] LABS: VENOUS BLOOD GAS BASE EXCESS -5.5 mmol/L (0.0-2.0); VENOUS BLOOD GAS PO2 89 mm/Hg (30-55); VENOUS BLOOD PH 7.22 (7.32-7.43)
--- NOTE | 2018-06-28 15:53 | RAD ---
Date of service: 06/28/2018 HISTORY: unresponsive COMPARISON: 06/09/2018 FINDINGS: LUNGS: No active pulmonary disease. PLEURA: No significant pleural effusion identified, no pneumothorax apparent. CARDIOVASCULAR: No aortic atherosclerotic calcification present. Normal cardiac size. No pulmonary vascular congestion. OSSEOUS STRUCTURES: No significant abnormalities. VISUALIZED UPPER ABDOMEN: Normal. OTHER FINDINGS: None. IMPRESSION: No active disease.
[2018-06-28 16:00] LABS: ACETAMINOPHEN < 10.0 ug/ml (10.0-20.0); SALICYLATE < 1 mg/dL (2.0-20.0)
[2018-06-28 16:12] LABS: TROPONIN I < 0.01 ng/mL
[2018-06-28 16:14] LABS: ALB/GLOB RATIO 1.3 (1.1-1.8); ALT/SGPT 29 U/L (7-56); AST/SGOT 31 U/L (14-36); BLOOD UREA NITROGEN 11 mg/dL (7-21); CALCIUM 8.9 mg/dL (8.4-10.5); GFR NON-AFRICAN AMERICAN > 60
[2018-06-28] MEDS ORDERED: Naloxone 0.4 mg/ml Inj (Adult) IVP STA (17:20)
[2018-06-28 17:39] LABS: URINE APPEARANCE CLEAR (CLEAR); URINE BILIRUBIN NEGATIVE (NEGATIVE); URINE BLOOD NEGATIVE (NEGATIVE); URINE COLOR DARK YELLOW (YELLOW); URINE GLUCOSE (UA) NEGATIVE (NEGATIVE); URINE LEUKOCYTE ESTERASE NEGATIVE Leu/uL (NEGATIVE); URINE PROTEIN TRACE mg/dL (<30 mg/dL); URINE UROBILINOGEN 0.2 E.U./dL (<1 E.U./dL)
[2018-06-28 18:00] LABS: BENZODIAZEPINES, UR NEGATIVE (NEGATIVE)
[2018-06-28 18:01] LABS: BARBITURATES, UR NEGATIVE (NEGATIVE); OPIATES, UR POSITIVE (NEGATIVE); PHENCYCLIDINE, UR NEGATIVE (NEGATIVE)
[2018-06-28 18:02] LABS: URINE EPITHELIAL CELLS 0 - 2 /hpf (0-5)
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
[2018-06-28] MEDS ORDERED: Multivitamin (MVI) 10 ML, Thiamine 100 MG, Folic Acid 1 MG in Dextrose 5% In Water 1,00... IV ONE (19:11)
[2018-06-28] MEDS ORDERED: Sodium Chloride 0.9% 1,000 ML IV SCH (19:15)
[2018-06-28] MEDS ORDERED: Albuterol-Ipratrop 3 mg / 0.5 (3 ml) UD IH PRN (19:41)
[2018-06-28] MEDS ORDERED: Albuterol-Ipratrop 3 mg / 0.5 (3 ml) UD IH STA (19:52)
[2018-06-28] MEDS: Albuterol-Ipratrop 3 mg / 0.5 (3 ml) UD IH SCH (20:07)
[2018-06-28 20:42] LABS: ARTERIAL BLOOD GAS HCO3 22.4 mmol/L (21-28); ARTERIAL BLOOD GAS HEMOGLOBIN 10.2 g/dL (11.7-17.4); ARTERIAL BLOOD GAS O2 CONTENT 13.5 ML/dl (15-23); ARTERIAL BLOOD GAS O2 SAT 96.5 % (95-98); ARTERIAL BLOOD GAS PCO2 51 mm/Hg (35-45); ARTERIAL BLOOD GAS PH 7.25 (7.35-7.45)
[2018-06-29 00:26] VITALS: BMI 22.3
[2018-06-29] MEDS ORDERED: Pantoprazole 40 mg EC Tab PO SCH (06:00)
[2018-06-29 08:41] LABS: BASO # 0.01 K/mm3 (0.0-2.0); BASO % 0.1 % (0.0-3.0); EOS % 0.3 % (1.5-5.0); GRAN # 5.51 (1.4-6.5); GRAN % 77.5 % (50.0-68.0); HEMOGLOBIN 10.9 g/dL (12.0-16.0); LYMPH # 1.2 (1.2-3.4); MEAN CELL VOLUME 93.6 fl (80.0-105.0); MEAN CORPUSCULAR HEMOGLOBIN 30.3 pg (25.0-35.0); MEAN CORPUSCULAR HGB CONC 32.3 g/dl (31.0-37.0); MEAN PLATELET VOLUME 9.8 fl (7.0-11.0); MONO # 0.4 (0.1-0.6); MONO % 5.1 % (1.0-6.0); RBC 3.6 10^6/uL (3.5-6.1); RED CELL DISTRIBUTION WIDTH 14.5 % (11.5-14.5); WHITE BLOOD COUNT 7.1 10^3/uL (4.5-11.0)
[2018-06-29 08:56] LABS: ALB/GLOB RATIO 1.2 (1.1-1.8); ALBUMIN 3.2 g/dL (3.0-4.8); ALT/SGPT 33 U/L (7-56); AST/SGOT 23 U/L (14-36); BLOOD UREA NITROGEN 6 mg/dL (7-21); CALCIUM 8.3 mg/dL (8.4-10.5); GFR NON-AFRICAN AMERICAN > 60
[2018-06-29] MEDS: Multivitamin With Minerals Tab PO SCH (11:00)
[2018-06-29] MEDS: Enoxaparin 40 mg Syringe SC SCH (11:03)
[2018-06-29] MEDS: Azithromycin 500MG/NS 250ml 500 MG/250 ML BAG IVPB SCH (11:04)
--- NOTE | 2018-06-29 12:25 | CP.PCM.PN ---
<Shaggy Titus - Last Filed: 06/29/18 12:18> Subjective - Date & Time of Evaluation Date of Evaluation: 06/29/18 Time of Evaluation: 07:00 - Subjective Subjective: Pt seen and examined at bedside this morning. Pt is more alert and oriented compared to last night. Per nursing, pt respirations have been non labored. Objective - Vital Signs/Intake and Output Vital Signs (last 24 hours): Temp Pulse Resp BP Pulse Ox 99.7 F H 80 18 105/67 95 06/29/18 06:00 06/29/18 06:00 06/29/18 06:00 06/29/18 06:00 06/29/18 06:00 - Medications Medications: Current Medications Albuterol/Ipratropium (Duoneb 3 Mg/0.5 Mg (3 Ml) Ud) 3 ml IH [id number] [facility] Enoxaparin Sodium (Lovenox) 40 mg SC DAILY [facility]; Protocol Last Admin: 06/29/18 11:03 Dose: 40 mg Sodium Chloride (Sodium Chloride 0.9%) 1,000 mls @ 100 mls/hr IV .Q10H [facility] Last Admin: 06/29/18 11:06 Dose: 100 mls/hr Azithromycin (Zithromax 500mg In Ns) 500 mg in 250 mls @ 167 mls/hr IVPB DAILY [facility]; Protocol Last Admin: 06/29/18 11:04 Dose: 167 mls/hr Lorazepam (Ativan) 1 mg IVP Q6H PRN; Protocol PRN Reason: Symptoms of alcohol withdrawl Methylprednisolone (Solu-Medrol) 60 mg IVP Q12 [facility] Last Admin: 06/29/18 11:01 Dose: 60 mg Multivitamins/Minerals (Therapeutic-M Tab) 1 tab PO 0800 [facility] Last Admin: 06/29/18 11:00 Dose: 1 tab Nicotine (Nicoderm Cq) 1 patch TD DAILY [facility] Last Admin: 06/29/18 11:02 Dose: 1 patch Pantoprazole Sodium (Protonix Ec Tab) 40 mg PO 0600 [facility] Thiamine HCl (Vitamin B1 Tab) 100 mg PO DAILY [facility] Last Admin: 06/29/18 11:00 Dose: 100 mg - Labs Labs: 06/29/18 08:36 06/29/18 08:36 - Constitutional Appears: No Acute Distress, Older Than Stated Age - Head Exam Head Exam: ATRAUMATIC, NORMOCEPHALIC - Eye Exam Eye Exam: EOMI - ENT Exam ENT Exam: Mucous Membranes Moist - Neck Exam Neck Exam: Full ROM - Respiratory Exam Respiratory Exam: Clear to Ausculation Bilateral, NORMAL BREATHING PATTERN. absent: Accessory Muscle Use, Respiratory Distress - Cardiovascular Exam Cardiovascular Exam: RRR, +S1, +S2. absent: Diastolic murmur - GI/Abdominal Exam GI & Abdominal Exam: Soft, Normal Bowel Sounds. absent: Tenderness - Extremities Exam Extremities Exam: Full ROM. absent: Calf Tenderness, Pedal Edema - Neurological Exam Neurological Exam: Alert, Awake, Oriented x3 - Psychiatric Exam Psychiatric exam: Normal Affect, Normal Mood - Skin Skin Exam: Dry, Normal Color, Warm Assessment and Plan - Assessment and Plan (Free Text) Assessment: Pt is a 62yo female with a PMH of seizures and substance abuse after being found unresponsive by the police outside. Plan: Heroin Overdose - given narcan in the field before being brought to the ED - HHD - NS@100 - neurochecks - head CT pending official read Alcohol Abuse - CIWA 1 - banana bag, mv, folate, thiamine - monitor for signs of withdrawal HLD - lipitor 20mg HTN - hypotensive at this time - continue to monitor COPD - duonebs PRN/ [facility] - methylprednisolone - azithromycin Anxiety - hold home klonopin due to pt mental status Ppx - protonix - lovenox Pt seen, examined, assessment and plan discussed with Dr Sherry Titus PGY1, Internal Medicine Resident <Silva Garcia - Last Filed: 06/29/18 15:57> Objective - Vital Signs/Intake and Output Vital Signs (last 24 hours): Temp Pulse Resp BP Pulse Ox 99.7 F H 95 H 18 105/67 95 06/29/18 06:00 06/29/18 10:00 06/29/18 06:00 06/29/18 06:00 06/29/18 06:00 - Medications Medications: Current Medications Albuterol/Ipratropium (Duoneb 3 Mg/0.5 Mg (3 Ml) Ud) 3 ml IH [id number] [facility] Last Admin: 06/29/18 14:01 Dose: Not Given Aspirin (Aspirin Chewable) 81 mg PO DAILY [facility] Atorvastatin Calcium (Lipitor) 10 mg PO DIN [facility] Enoxaparin Sodium (Lovenox) 40 mg SC DAILY [facility]; Protocol Last Admin: 06/29/18 11:03 Dose: 40 mg Azithromycin (Zithromax 500mg In Ns) 500 mg in 250 mls @ 167 mls/hr IVPB DAILY [facility]; Protocol Last Admin: 06/29/18 11:04 Dose: 167 mls/hr Lorazepam (Ativan) 1 mg IVP Q6H PRN; Protocol PRN Reason: Symptoms of alcohol withdrawl Methylprednisolone (Solu-Medrol) 40 mg IV Q12 [facility] Multivitamins/Minerals (Therapeutic-M Tab) 1 tab PO 0800 [facility] Last Admin: 06/29/18 11:00 Dose: 1 tab Nicotine (Nicoderm Cq) 1 patch TD DAILY [facility] Last Admin: 06/29/18 11:02 Dose: 1 patch Pantoprazole Sodium (Protonix Ec Tab) 40 mg PO 0600 [facility] Thiamine HCl (Vitamin B1 Tab) 100 mg PO DAILY [facility] Last Admin: 06/29/18 11:00 Dose: 100 mg - Labs Labs: 06/29/18 08:36 06/29/18 08:36 Attending/Attestation - Attestation I have personally seen and examined this patient.: Yes I have fully participated in the care of the patient.: Yes I have reviewed all pertinent clinical information, including history, physical exam and plan: Yes Notes (Text): Patient seen and examined by me with resident at 9:20AM on 06/29/18. Case including HPI, physical exam, and assessment and plan discussed with resident. Agree with above with following additions/corrections. Patient is a 62-year-old female past medical history significant for hyperlipidemia, hypertension, type 2 diabetes, COPD, anxiety, drug abuse, alcohol abuse, and tobacco abuse who presented to the emergency room after being found unresponsive by police outside. Patient states she is feeling better today. States she feels a little short of breath. Patient states she smokes a bout a pack/day of cigarettes. Patient states that she knows that she needs to quit using heroin. She states that she uses daily. Patient denies abdominal pain. No nausea or vomiting. No headaches or dizziness. No fevers or chills. No dysuria. No chest pain or palpitations. No diarrhea. Physical exam: General: Awake and alert lying in bed in no acute distress HEENT: Normocephalic, atraumatic. Extraocular muscles intact, pupils equal and reactive, no scleral icterus. Oropharynx is pink and moist. No pharyngeal erythema or exudate appreciated. Neck is supple. Cardiovascular: Regular rhythm. Normal S1 and S2. No murmurs, rubs, or gallops appreciated Pulmonary: Normal respiratory effort. Decreased breath sounds. Mild expiratory wheezing. No rhonchi or rales appreciated. Gastrointestinal: Soft, nondistended. Nontender. Positive bowel sounds all 4 quadrants. No guarding. Musculoskeletal: Moves all extremities. No edema appreciated. No calf tenderness. Central nervous system: AAO 3. Cranial nerves II through XII grossly intact. Dermatologic: Skin warm and dry. Assessment and plan: Patient is a 62-year-old female past medical history significant for hyperlipidemia, hypertension, type 2 diabetes, COPD, anxiety, drug abuse, alcohol abuse, and tobacco abuse who presented to the emergency room after being found unresponsive by police outside. 1. Heroin overdose. Status post Narcan. Patient is now awake and alert. Counseled at length on cessation. 2. COPD exacerbation. Continue nebulizer treatments. Continue Solu-Medrol, continue to taper. Continue Zithromax. Continue O2 via nasal cannula. Patient counseled at length on tobacco cessation. Follow-up chest x-ray. 3. History of alcohol abuse. Alcohol level less than 10. Continue with CIWA. Continue thiamine, folic acid, and multivitamin. Monitor for withdrawal symptoms. 4. History of lacunar infarct seen on head CT. Head CT per radiology showed no intracranial mass, hemorrhage, or evidence of acute infarct; old right lentiform nucleus lacunar infarct noted. Patient placed on aspirin and Lipitor. 5. ? History of hyperlipidemia. Placed on Lipitor. Follow-up lipid panel. 6. History of hypertension. Patient normotensive here. Continue to monitor and add medications if needed. 7. History of anxiety. Will need to call patient's pharmacy tomorrow to get correct list of medications 8. Tobacco abuse. Patient counseled on cessation. Continue with nicotine patch. 9. GI/DVT prophylaxis. Protonix/Lovenox 10. Patient is a full code Case was discussed in detail with the patient regarding diagnosis and treatment plan. All questions answered.
--- NOTE | 2018-06-29 13:18 | CT ---
Date of service: 06/28/2018 PROCEDURE: CT HEAD WITHOUT CONTRAST. HISTORY: altered mental status COMPARISON: 06/09/2018 TECHNIQUE: Axial computed tomography images were obtained through the head/brain without intravenous contrast. Radiation dose: Total exam DLP = 910.4 mGy-cm. This CT exam was performed using one or more of the following dose reduction techniques: Automated exposure control, adjustment of the mA and/or kV according to patient size, and/or use of iterative reconstruction technique. FINDINGS: HEMORRHAGE: No intracranial hemorrhage. BRAIN: No mass effect or edema. No atrophy or chronic microvascular ischemic changes. Old right lentiform nucleus lacunar infarct. No evidence of acute infarct. VENTRICLES: Unremarkable. No hydrocephalus. CALVARIUM: Unremarkable. PARANASAL SINUSES: Unremarkable as visualized. No significant inflammatory changes. MASTOID AIR CELLS: Unremarkable as visualized. No inflammatory changes. OTHER FINDINGS: None. IMPRESSION: No intracranial mass, hemorrhage or evidence of acute infarct. Old right lentiform nucleus lacunar infarct noted. No additional abnormality.
[2018-06-29] MEDS: Albuterol-Ipratrop 3 mg / 0.5 (3 ml) UD IH SCH ×4 (14:00→20:01)
[2018-06-29 16:51] VITALS: RESP 20
[2018-06-29] MEDS: MethylPREDNISolone 40 mg Vial IV SCH ×2 (17:10→22:42)
--- NOTE | 2018-06-29 18:24 | RAD ---
Date of service: 06/29/2018 HISTORY: wheezing COMPARISON: No prior. FINDINGS: LUNGS: No active pulmonary disease. PLEURA: No significant pleural effusion identified, no pneumothorax apparent. CARDIOVASCULAR: No aortic atherosclerotic calcification present. Normal cardiac size. No pulmonary vascular congestion. OSSEOUS STRUCTURES: No significant abnormalities. VISUALIZED UPPER ABDOMEN: Normal. OTHER FINDINGS: None. IMPRESSION: No active disease.
[2018-06-29] MEDS ORDERED: MethylPREDNISolone 40 mg Vial IV SCH (22:00)
[2018-06-30] MEDS: Albuterol-Ipratrop 3 mg / 0.5 (3 ml) UD IH SCH ×6 (01:18→19:44)
[2018-06-30 06:29] LABS: GRAN # 7.91 (1.4-6.5); GRAN % 91.5 % (50.0-68.0); HEMOGLOBIN 11.3 g/dL (12.0-16.0); LYMPH # 0.4 (1.2-3.4); LYMPH % 4.7 % (22.0-35.0); MEAN CORPUSCULAR HEMOGLOBIN 29.9 pg (25.0-35.0); MEAN CORPUSCULAR HGB CONC 33.2 g/dl (31.0-37.0); MONO # 0.3 (0.1-0.6); MONO % 3.8 % (1.0-6.0); PLATELET COUNT 220 10^3/uL (120.0-450.0); RBC 3.78 10^6/uL (3.5-6.1); RED CELL DISTRIBUTION WIDTH 13.5 % (11.5-14.5); WHITE BLOOD COUNT 8.7 10^3/uL (4.5-11.0)
[2018-06-30 06:35] LABS: MEAN CELL VOLUME 89.9 fl (80.0-105.0)
[2018-06-30 06:56] LABS: LDL CHOLESTEROL 52 mg/dL (0-129)
[2018-06-30 06:57] LABS: ALB/GLOB RATIO 1.2 (1.1-1.8); ALBUMIN 3.4 g/dL (3.0-4.8); ALT/SGPT 29 U/L (7-56); AST/SGOT 32 U/L (14-36); BLOOD UREA NITROGEN 11 mg/dL (7-21); CALCIUM 9.1 mg/dL (8.4-10.5); GFR NON-AFRICAN AMERICAN > 60; HDL CHOLESTEROL 61 mg/dL (29-60)
--- NOTE | 2018-06-30 07:52 | CARD ---
APPROVED REPORT Date of service: 06/28/2018 EKG Measurement Heart [id number] <Conclusion> Normal sinus rhythm Normal ECG
[2018-06-30 08:23] LABS: LYMPHOCYTE 3 % (22.0-35.0); NEUTROPHIL 97 % (50.0-70.0); PLATELET ESTIMATE NORMAL (NORMAL)
[2018-06-30] MEDS: Enoxaparin 40 mg Syringe SC SCH (09:46)
[2018-06-30] MEDS: MethylPREDNISolone 40 mg Vial IV SCH (09:47)
[2018-06-30] MEDS: Multivitamin With Minerals Tab PO SCH (09:48)
[2018-06-30] MEDS: Azithromycin 500MG/NS 250ml 500 MG/250 ML BAG IVPB SCH (09:49)
[2018-06-30 16:24] VITALS: BP 129/81; PULSE 97; TEMP 98.8; O2SAT 95
--- NOTE | 2018-06-30 17:56 | CP.PCM.DIS ---
<Con Cosme - Last Filed: 06/30/18 17:48> Provider - Provider Date of Admission: 06/29/18 15:22 Attending physician: Marquez Duggan MD Consults: 06/30/18 11:05 Immunochemist [Case Management Referral] Routine Comment: Physician Instructions: Reason For Exam: Drug abuse rehab Reason for Referral: Immunochemist Ana 06/30/18 11:07 Psychiatry Consult Routine Comment: Consulting Provider: Nikki Clark Consulting Physician: Nikki Clark Reason for Consult: Depression, drug overdose Time Spent in preparation of Discharge (in minutes): 45 Hospital Course - Lab Results Lab Results: Micro Results 06/28/18 15:50 Blood-Venous Blood Culture - Preliminary NO GROWTH AFTER 48 HOURS 06/28/18 15:31 Blood-Venous Blood Culture - Preliminary NO GROWTH AFTER 48 HOURS 06/28/18 17:33 Urine Random Urine Culture - Final No Growth (<1,000 CFU/ML) Most Recent Lab Values WBC 8.7 10^3/uL (4.5-11.0) D 06/30/18 06:00 RBC 3.78 10^6/uL (3.5-6.1) 06/30/18 06:00 Hgb 11.3 g/dL (12.0-16.0) L 06/30/18 06:00 Hct 34.0 % (36.0-48.0) L 06/30/18 06:00 MCV 89.9 fl (80.0-105.0) D 06/30/18 06:00 MCH 29.9 pg (25.0-35.0) 06/30/18 06:00 MCHC 33.2 g/dl (31.0-37.0) 06/30/18 06:00 RDW 13.5 % (11.5-14.5) 06/30/18 06:00 Plt Count 220 10^3/uL (120.0-450.0) 06/30/18 06:00 MPV 10.0 fl (7.0-11.0) 06/30/18 06:00 Gran % 91.5 % (50.0-68.0) H 06/30/18 06:00 Lymph % (Auto) 4.7 % (22.0-35.0) L 06/30/18 06:00 Holmes % (Auto) 3.8 % (1.0-6.0) 06/30/18 06:00 Eos % (Auto) 0.0 % (1.5-5.0) L 06/30/18 06:00 Baso % (Auto) 0.0 % (0.0-3.0) 06/30/18 06:00 Gran # 7.91 (1.4-6.5) H 06/30/18 06:00 Lymph # (Auto) 0.4 (1.2-3.4) L 06/30/18 06:00 Holmes # (Auto) 0.3 (0.1-0.6) 06/30/18 06:00 Eos # (Auto) 0.0 (0.0-0.7) 06/30/18 06:00 Baso # (Auto) 0.00 K/mm3 (0.0-2.0) 06/30/18 06:00 Neutrophils % (Manual) 97 % (50.0-70.0) H 06/30/18 06:00 Lymphocytes % (Manual) 3 % (22.0-35.0) L 06/30/18 06:00 Monocytes % (Manual) TEST NOT PERFORMED 06/30/18 06:00 Platelet Evaluation Normal (NORMAL) 06/30/18 06:00 pCO2 51 mm/Hg (35-45) H 06/28/18 20:35 pO2 83.0 mm/Hg (80-100) 06/28/18 20:35 HCO3 22.4 mmol/L (21-28) 06/28/18 20:35 ABG pH 7.25 (7.35-7.45) L 06/28/18 20:35 ABG Total CO2 24.0 mmol.L (22-28) 06/28/18 20:35 ABG O2 Saturation 96.5 % (95-98) 06/28/18 20:35 ABG O2 Content 13.5 ML/dl (15-23) L 06/28/18 20:35 ABG Base Excess -4.9 mmol/L (-2.0-3.0) L 06/28/18 20:35 ABG Hemoglobin 10.2 g/dL (11.7-17.4) L 06/28/18 20:35 ABG Carboxyhemoglobin 2.5 % (0.5-1.5) H 06/28/18 20:35 POC ABG HHb (Measured) 3.4 % (0-5) 06/28/18 20:35 ABG Methemoglobin 0.6 % (0.0-3.0) 06/28/18 20:35 ABG O2 Capacity 14.0 mL/dl (16-24) L 06/28/18 20:35 VBG pH 7.22 (7.32-7.43) L 06/28/18 15:31 VBG pCO2 56.0 (40-60) 06/28/18 15:31 VBG HCO3 22.9 mmol/l (21-28) 06/28/18 15:31 VBG Total CO2 24.6 mmol.L (22-28) 06/28/18 15:31 VBG O2 Sat (Calc) 96.9 % (40-65) H 06/28/18 15:31 VBG Base Excess -5.5 mmol/L (0.0-2.0) L 06/28/18 15:31 VBG Potassium 3.9 mmol/L (3.6-5.2) 06/28/18 15:31 Hgb O2 Saturation 93.5 % (95.0-98.0) L 06/28/18 20:35 Sodium 140.0 mmol/L (132-148) 06/28/18 15:31 Chloride 111.0 mmol/L (98-107) H 06/28/18 15:31 Glucose 115 mg/dl (65-105) H 06/28/18 15:31 Lactate 0.6 mmol/L (0.7-2.1) L 06/28/18 15:31 FiO2 28.0 % 06/28/18 20:35 Sodium 138 mmol/L (132-148) 06/30/18 06:00 Potassium 4.2 mmol/L (3.6-5.0) 06/30/18 06:00 Chloride 108 mmol/L (98-107) H 06/30/18 06:00 Carbon Dioxide 25 mmol/L (21-33) 06/30/18 06:00 Anion Gap 9 (10-20) L 06/30/18 06:00 BUN 11 mg/dL (7-21) 06/30/18 06:00 Creatinine 0.5 mg/dl (0.7-1.2) L 06/30/18 06:00 Est GFR ( Amer) > 60 06/30/18 06:00 Est GFR (Non-Af Amer) > 60 06/30/18 06:00 Random Glucose 161 mg/dL (70-110) H 06/30/18 06:00 Calcium 9.1 mg/dL (8.4-10.5) 06/30/18 06:00 Phosphorus 2.5 mg/dL (2.5-4.5) 06/30/18 06:00 Magnesium 2.1 mg/dL (1.7-2.2) 06/30/18 06:00 Total Bilirubin 0.2 mg/dL (0.2-1.3) 06/30/18 06:00 AST 32 U/L (14-36) 06/30/18 06:00 ALT 29 U/L (7-56) 06/30/18 06:00 Alkaline Phosphatase 72 U/L (38-126) 06/30/18 06:00 Troponin I < 0.01 ng/mL 06/28/18 15:31 Total Protein 6.3 g/dL (5.8-8.3) 06/30/18 06:00 Albumin 3.4 g/dL (3.0-4.8) 06/30/18 06:00 Globulin 2.9 gm/dL 06/30/18 06:00 Albumin/Globulin Ratio 1.2 (1.1-1.8) 06/30/18 06:00 Triglycerides 61 mg/dL (35-160) 06/30/18 06:00 Cholesterol 131 mg/dL (130-200) 06/30/18 06:00 LDL Cholesterol Direct 52 mg/dL (0-129) 06/30/18 06:00 HDL Cholesterol 61 mg/dL (29-60) H 06/30/18 06:00 Venous Blood Potassium 3.9 mmol/L (3.6-5.2) 06/28/18 15:31 Urine Color Dark yellow (YELLOW) 06/28/18 17:33 Urine Appearance Clear (CLEAR) 06/28/18 17:33 Urine pH 6.0 (4.7-8.0) 06/28/18 17:33 Ur Specific [place] >= 1.030 (1.005-1.035) 06/28/18 17:33 Urine Protein Trace mg/dL (<30 mg/dL) H 06/28/18 17:33 Urine Glucose (UA) Negative mg/dL (NEGATIVE) 06/28/18 17:33 Urine Ketones Negative mg/dL (NEGATIVE) 06/28/18 17:33 Urine Blood Negative (NEGATIVE) 06/28/18 17:33 Urine Nitrate Negative (NEGATIVE) 06/28/18 17:33 Urine Bilirubin Negative (NEGATIVE) 06/28/18 17:33 Urine Urobilinogen 0.2 E.U./dL (<1 E.U./dL) 06/28/18 17:33 Ur Leukocyte Esterase Negative Lashae/uL (NEGATIVE) 06/28/18 17:33 Urine RBC None /hpf (0-2) 06/28/18 17:33 Urine WBC None /hpf (0-6) 06/28/18 17:33 Ur Epithelial Cells 0 - 2 /hpf (0-5) 06/28/18 17:33 Salicylates < 1 mg/dL (2.0-20.0) L 06/28/18 15:31 Urine Opiates Screen Positive (NEGATIVE) H 06/28/18 17:33 Urine Methadone Screen Negative (NEGATIVE) 06/28/18 17:33 Acetaminophen < 10.0 ug/ml (10.0-20.0) L 06/28/18 15:31 Ur Barbiturates Screen Negative (NEGATIVE) 06/28/18 17:33 Ur Phencyclidine Scrn Negative (NEGATIVE) 06/28/18 17:33 Ur Amphetamines Screen Negative (NEGATIVE) 06/28/18 17:33 U Benzodiazepines Scrn Negative (NEGATIVE) 06/28/18 17:33 U Oth Cocaine Metabols Negative (NEGATIVE) 06/28/18 17:33 U Cannabinoids Screen Negative (NEGATIVE) 06/28/18 17:33 Alcohol, Quantitative < 10 mg/dL (0-10) 06/28/18 20:39 - Hospital Course Hospital Course: Upon Admission: 62yo female with a PMH of seizures and substance abuse after being found unresponsive by the police outside. Pt snorted a bag of heroine and was later given 2 doses of Narcan by EMS. Pt was able to follow commands but drifted off and almost fell asleep during the interview. Pt had trouble keeping her eyes open. Pt was not in respiratory distress. Pt had no other complaints at that time. Pt denied nausea, vomiting, diarrhea, she was unsure if she had ever withdrawn from heroine in the past Hospital Course: Pt was s/p narcan administration and had improvement in symptoms. Pt was also treated with COPD exacerbation with nebulizer treatments, solumedrol, azithromycin and O2 treatment. She was also on CIWA protocol and treated with thiamine, folic acid and multivitamin. Upon discharge: Pt reported improvement in symptoms. Pt was not withdrawing. She had met with social work/case management about addiction rehabilitation centers and agreed to attend. Her vital signs are stable, labs wnl. She agreed to attending drug rehab. She was counselled on illicit drug cessation, f/u with PMD and medication compliance. Discharge Exam - Head Exam Head Exam: ATRAUMATIC, NORMOCEPHALIC - Eye Exam Eye Exam: EOMI, Normal appearance - ENT Exam ENT Exam: Mucous Membranes Moist, Normal Exam - Neck Exam Neck exam: Normal Inspection - Respiratory Exam Respiratory Exam: NORMAL BREATHING PATTERN, UNREMARKABLE - Cardiovascular Exam Cardiovascular Exam: REGULAR RHYTHM, +S1, +S2 - GI/Abdominal Exam GI & Abdominal Exam: Normal Bowel Sounds, Unremarkable - Extremities Exam Extremities exam: normal inspection - Back Exam Back exam: NORMAL INSPECTION - Neurological Exam Neurological exam: Alert, Oriented x3 - Psychiatric Exam Psychiatric exam: Normal Affect, Normal Mood - Skin Skin Exam: Dry, Intact, Warm Discharge Plan - Follow Up Plan Condition: STABLE Disposition: HOME/ ROUTINE Instructions: Drug Abuse and Drug Addiction (DC), Narcotic Overdose (DC) Additional Instructions: Please follow up with your primary care physician within 3-5 days Please refrain from using illicit drugs, specifically heroin. Please refrain from smoking and alcohol abuse. Please resume the medications that you were taking previously. Please discuss these medications with your doctor Please visit the drug rehabilitation facility that you have been in contact with The contact information for [place] addiction services is [phone] Please follow up with Romana Matthew within 3-5 days of discharge from the hospital If your symptoms return, please visit the nearest emergency room You have an appoint at: [facility] 3:30pm 07/03/18 Please arrive to your appointment on time. Please bring a photo ID and insurance card with you <Marquez Duggan - Last Filed: 07/01/18 14:42> Provider - Provider Date of Admission: 06/29/18 15:22 Attending physician: Marquez Duggan MD Consults: 06/30/18 11:05 Immunochemist [Case Management Referral] Routine Comment: Physician Instructions: Reason For Exam: Drug abuse rehab Reason for Referral: Immunochemist Eval 06/30/18 11:07 Psychiatry Consult Routine Comment: Consulting Provider: Nikki Clark Consulting Physician: Nikki Clark Reason for Consult: Depression, drug overdose Hospital Course - Lab Results Lab Results: Micro Results 06/28/18 15:50 Blood-Venous Blood Culture - Preliminary NO GROWTH AFTER 48 HOURS 06/28/18 15:31 Blood-Venous Blood Culture - Preliminary NO GROWTH AFTER 48 HOURS 06/28/18 17:33 Urine Random Urine Culture - Final No Growth (<1,000 CFU/ML) Most Recent Lab Values WBC 8.7 10^3/uL (4.5-11.0) D 06/30/18 06:00 RBC 3.78 10^6/uL (3.5-6.1) 06/30/18 06:00 Hgb 11.3 g/dL (12.0-16.0) L 06/30/18 06:00 Hct 34.0 % (36.0-48.0) L 06/30/18 06:00 MCV 89.9 fl (80.0-105.0) D 06/30/18 06:00 MCH 29.9 pg (25.0-35.0) 06/30/18 06:00 MCHC 33.2 g/dl (31.0-37.0) 06/30/18 06:00 RDW 13.5 % (11.5-14.5) 06/30/18 06:00 Plt Count 220 10^3/uL (120.0-450.0) 06/30/18 06:00 MPV 10.0 fl (7.0-11.0) 06/30/18 06:00 Gran % 91.5 % (50.0-68.0) H 06/30/18 06:00 Lymph % (Auto) 4.7 % (22.0-35.0) L 06/30/18 06:00 Holmes % (Auto) 3.8 % (1.0-6.0) 06/30/18 06:00 Eos % (Auto) 0.0 % (1.5-5.0) L 06/30/18 06:00 Baso % (Auto) 0.0 % (0.0-3.0) 06/30/18 06:00 Gran # 7.91 (1.4-6.5) H 06/30/18 06:00 Lymph # (Auto) 0.4 (1.2-3.4) L 06/30/18 06:00 Holmes # (Auto) 0.3 (0.1-0.6) 06/30/18 06:00 Eos # (Auto) 0.0 (0.0-0.7) 06/30/18 06:00 Baso # (Auto) 0.00 K/mm3 (0.0-2.0) 06/30/18 06:00 Neutrophils % (Manual) 97 % (50.0-70.0) H 06/30/18 06:00 Lymphocytes % (Manual) 3 % (22.0-35.0) L 06/30/18 06:00 Monocytes % (Manual) TEST NOT PERFORMED 06/30/18 06:00 Platelet Evaluation Normal (NORMAL) 06/30/18 06:00 pCO2 51 mm/Hg (35-45) H 06/28/18 20:35 pO2 83.0 mm/Hg (80-100) 06/28/18 20:35 HCO3 22.4 mmol/L (21-28) 06/28/18 20:35 ABG pH 7.25 (7.35-7.45) L 06/28/18 20:35 ABG Total CO2 24.0 mmol.L (22-28) 06/28/18 20:35 ABG O2 Saturation 96.5 % (95-98) 06/28/18 20:35 ABG O2 Content 13.5 ML/dl (15-23) L 06/28/18 20:35 ABG Base Excess -4.9 mmol/L (-2.0-3.0) L 06/28/18 20:35 ABG Hemoglobin 10.2 g/dL (11.7-17.4) L 06/28/18 20:35 ABG Carboxyhemoglobin 2.5 % (0.5-1.5) H 06/28/18 20:35 POC ABG HHb (Measured) 3.4 % (0-5) 06/28/18 20:35 ABG Methemoglobin 0.6 % (0.0-3.0) 06/28/18 20:35 ABG O2 Capacity 14.0 mL/dl (16-24) L 06/28/18 20:35 VBG pH 7.22 (7.32-7.43) L 06/28/18 15:31 VBG pCO2 56.0 (40-60) 06/28/18 15:31 VBG HCO3 22.9 mmol/l (21-28) 06/28/18 15:31 VBG Total CO2 24.6 mmol.L (22-28) 06/28/18 15:31 VBG O2 Sat (Calc) 96.9 % (40-65) H 06/28/18 15:31 VBG Base Excess -5.5 mmol/L (0.0-2.0) L 06/28/18 15:31 VBG Potassium 3.9 mmol/L (3.6-5.2) 06/28/18 15:31 Hgb O2 Saturation 93.5 % (95.0-98.0) L 06/28/18 20:35 Sodium 140.0 mmol/L (132-148) 06/28/18 15:31 Chloride 111.0 mmol/L (98-107) H 06/28/18 15:31 Glucose 115 mg/dl (65-105) H 06/28/18 15:31 Lactate 0.6 mmol/L (0.7-2.1) L 06/28/18 15:31 FiO2 28.0 % 06/28/18 20:35 Sodium 138 mmol/L (132-148) 06/30/18 06:00 Potassium 4.2 mmol/L (3.6-5.0) 06/30/18 06:00 Chloride 108 mmol/L (98-107) H 06/30/18 06:00 Carbon Dioxide 25 mmol/L (21-33) 06/30/18 06:00 Anion Gap 9 (10-20) L 06/30/18 06:00 BUN 11 mg/dL (7-21) 06/30/18 06:00 Creatinine 0.5 mg/dl (0.7-1.2) L 06/30/18 06:00 Est GFR ( Amer) > 60 06/30/18 06:00 Est GFR (Non-Af Amer) > 60 06/30/18 06:00 Random Glucose 161 mg/dL (70-110) H 06/30/18 06:00 Calcium 9.1 mg/dL (8.4-10.5) 06/30/18 06:00 Phosphorus 2.5 mg/dL (2.5-4.5) 06/30/18 06:00 Magnesium 2.1 mg/dL (1.7-2.2) 06/30/18 06:00 Total Bilirubin 0.2 mg/dL (0.2-1.3) 06/30/18 06:00 AST 32 U/L (14-36) 06/30/18 06:00 ALT 29 U/L (7-56) 06/30/18 06:00 Alkaline Phosphatase 72 U/L (38-126) 06/30/18 06:00 Troponin I < 0.01 ng/mL 06/28/18 15:31 Total Protein 6.3 g/dL (5.8-8.3) 06/30/18 06:00 Albumin 3.4 g/dL (3.0-4.8) 06/30/18 06:00 Globulin 2.9 gm/dL 06/30/18 06:00 Albumin/Globulin Ratio 1.2 (1.1-1.8) 06/30/18 06:00 Triglycerides 61 mg/dL (35-160) 06/30/18 06:00 Cholesterol 131 mg/dL (130-200) 06/30/18 06:00 LDL Cholesterol Direct 52 mg/dL (0-129) 06/30/18 06:00 HDL Cholesterol 61 mg/dL (29-60) H 06/30/18 06:00 Venous Blood Potassium 3.9 mmol/L (3.6-5.2) 06/28/18 15:31 Urine Color Dark yellow (YELLOW) 06/28/18 17:33 Urine Appearance Clear (CLEAR) 06/28/18 17:33 Urine pH 6.0 (4.7-8.0) 06/28/18 17:33 Ur Specific [place] >= 1.030 (1.005-1.035) 06/28/18 17:33 Urine Protein Trace mg/dL (<30 mg/dL) H 06/28/18 17:33 Urine Glucose (UA) Negative mg/dL (NEGATIVE) 06/28/18 17:33 Urine Ketones Negative mg/dL (NEGATIVE) 06/28/18 17:33 Urine Blood Negative (NEGATIVE) 06/28/18 17:33 Urine Nitrate Negative (NEGATIVE) 06/28/18 17:33 Urine Bilirubin Negative (NEGATIVE) 06/28/18 17:33 Urine Urobilinogen 0.2 E.U./dL (<1 E.U./dL) 06/28/18 17:33 Ur Leukocyte Esterase Negative Lashae/uL (NEGATIVE) 06/28/18 17:33 Urine RBC None /hpf (0-2) 06/28/18 17:33 Urine WBC None /hpf (0-6) 06/28/18 17:33 Ur Epithelial Cells 0 - 2 /hpf (0-5) 06/28/18 17:33 Salicylates < 1 mg/dL (2.0-20.0) L 06/28/18 15:31 Urine Opiates Screen Positive (NEGATIVE) H 06/28/18 17:33 Urine Methadone Screen Negative (NEGATIVE) 06/28/18 17:33 Acetaminophen < 10.0 ug/ml (10.0-20.0) L 06/28/18 15:31 Ur Barbiturates Screen Negative (NEGATIVE) 06/28/18 17:33 Ur Phencyclidine Scrn Negative (NEGATIVE) 06/28/18 17:33 Ur Amphetamines Screen Negative (NEGATIVE) 06/28/18 17:33 U Benzodiazepines Scrn Negative (NEGATIVE) 06/28/18 17:33 U Oth Cocaine Metabols Negative (NEGATIVE) 06/28/18 17:33 U Cannabinoids Screen Negative (NEGATIVE) 06/28/18 17:33 Alcohol, Quantitative < 10 mg/dL (0-10) 06/28/18 20:39 Attending/Attestation - Attestation I have personally seen and examined this patient.: Yes I have fully participated in the care of the patient.: Yes I have reviewed all pertinent clinical information, including history, physical exam and plan: Yes Notes (Text): 07/01/18 14:28 Attending note; Patient seen and examined with resident. Denies any chest pain, shortness of breath. Denies any abdominal pain, nausea, vomiting. Tolerating diet well. Ambulating without difficulty. Patient is a 62-year-old female past medical history significant for hyperlipidemia, hypertension, type 2 diabetes, COPD, anxiety, drug abuse, alcohol abuse, and tobacco abuse who presented to the emergency room after being found unresponsive by police outside. 1. Heroin overdose. Status post Narcan. Patient is now awake and alert. Counseled at length on cessation. Patient denies suicidal, homicidal ideation. 2. COPD exacerbation. Continue nebulizer treatments. 3. History of alcohol abuse. Alcohol level less than 10. Continue with CIWA. Continue thiamine, folic acid, and multivitamin. Not in withdrawal. 4. History of depression; psychiatric evaluation appreciated. Patient is willing to go to outpatient rehabilitation. Case discussed with social worker delinquency prevention in detail. Outpatient rehabilitation information given. Patient will follow-up with [facility] clinic.
--- NOTE | 2018-06-30 20:33 | CP.PCM.PCO ---
Addendum Addendum: 06/30/18 20:31 Per nursing staff, pt was shaking earlier. Pt evaluated at bedside, had mild tremors. Pt reported no other acute complaints. Pt was given 10mg methadone. Pt- evaluated, and in no apparent distress. She denies complaints. No n/v/c/d. Vital signs stable. Pt reports she will visit rehab facility tomorrow. She was given information from case management earlier.
--- NOTE | 2018-06-30 21:00 | CON ---
DATE: 06/30/2018 HISTORY OF PRESENT ILLNESS: The patient is a 62-year-old single female with a history of depression and opioid dependency. No prior psychiatric admissions or history of suicide attempts or no current psychiatric outpatient treatment after she was brought to the ER and again found in respiratory distress and hypoxia. She was given 2 doses of and appears that she had a overdose on heroin which per review of records. Per records, she has done at least twice before in 2018. Psychiatry was called to evaluate her depression and her heroin use. I reviewed at that point health records, which indicate that the patient has had no prior psychiatric admissions to our facility; however, was seen by Dr. Gautam as a travel consultant on 10/14/2017. At that time, the patient denied having any depression; however, she was being prescribed trazodone, Remeron, Abilify BuSpar by her insurance. Dr. Gautam adjusted her medications, discontinued trazodone and BuSpar and optimized Remeron. The patient was not considered to be danger to herself or others and subsequently signed off. I met with the patient at bedside this morning and she is alert and oriented to month, year, location, and circumstances. She is aware that she was admitted for her heroin overdose and again indicates that it was unintentional. She is aware of her prior 2 hospitalizations were unintentional per overdoses as well. The patient has been asked if tries to take same quantity as she usually takes which is about 4 to 5 times intranasally. She denies any drug use or alcohol use. She actually denies having any depression at this time and she denies taking any psychiatric medications. She presented as constricted, if not withdrawn, there is some reactivity. She smiles at times and her responses are consistent with repeated questioning. Her affect is generally congruent with her reported mood. There are no behavioral issues at this time and she has generally been cooperative with staff members. She denies any perceptional disturbance and this was not notified, this provider and were not enlisted it. Presently, the patient feels that her major stressor is her opiate addiction and she is open to being referred for inpatient rehab once she is medically cleared. Her insight and judgment are fair. VITAL SIGNS: Reviewed. LABORATORY DATA: Reviewed. RELEVANT MEDICATIONS: The patient is not in any relevant psychiatric medications except for Ativan 1 mg IV every 6 p.r.n. which she has not received a single dose yet. PAST PSYCHIATRIC HISTORY: The patient denies any prior psychiatric admissions or suicide attempts. She reports that she was in therapy about 5 years ago, but was never prescribed medications. She has been prescribed Ability, BuSpar, Remeron, hydroxyzine, and trazodone in the past; however, denies any current prescription and she is not outpatient treatment. SOCIAL HISTORY: The patient was born and raised in [place]. She is single. She has no children. She is not employed. She graduated from high school. She resides with her sister. She has a 9 year off and on heroin dependency. Recently, she has been abusing 4 to 5 bags of heroin intranasally daily. She reports she has been in detox last rehab about 5 times. Denies any other drug or alcohol use. She is not currently in NA; however, she is interested in rehab. IMPRESSION: Severe opiate use disorder, unintentional overdose likely a heroin withdrawal, the patient is tremulus, upon observation at bedside today; contribution to substance induced mood disorder; substance abuse anxiety disorder; her mood is functioning in this regard. RECOMMENDATIONS: The patient is very interested in attending inpatient rehab for her heroin addiction. I strongly recommend that social work assistant seeks the patient regarding this disposition and the patient preferably should be discharge right to rehab from the medical floor as to minimize chance of relapse. She appears genuine in on this recommendation. If there is any chance she changes her mind, she should be referred again by social work assistant to a dual diagnoses program that could address psychiatric issues, as well as high substance dependence. She does not present as in active danger danger to herself as she does not want to , these overdose is not unintentional though concerning. She does not meet criteria for involuntary treatment or voluntary treatment on the psychiatric unit. At this time, psychiatry will sign off consult if there is any acute psychiatric issues. Nikki Clark MD
== END 2018-06-30 21:10 | disposition home or self-care (01) | DRG 449 ==
LOC: ED 14:42 → ERH 18:03 → 3RNO 21:16 → OBSVTOIN 06-29 15:22
PROVIDERS: ADMIT Internal Medicine; ATTEND Internal Medicine
DX: T40.1X1A Poisoning by heroin, accidental (unintentional), initial encounter (principal); F11.24 Opioid dependence with opioid-induced mood disorder; J44.1 Chronic obstructive pulmonary disease with (acute) exacerbation; F11.23 Opioid dependence with withdrawal; F41.0 Panic disorder [episodic paroxysmal anxiety]; E78.5 Hyperlipidemia, unspecified; F17.210 Nicotine dependence, cigarettes, uncomplicated; F31.9 Bipolar disorder, unspecified; F43.10 Post-traumatic stress disorder, unspecified; I10 Essential (primary) hypertension; F10.10 Alcohol abuse, uncomplicated; Y90.0 Blood alcohol level of less than 20 mg/100 ml; E11.9 Type 2 diabetes mellitus without complications; Z86.73 Personal history of transient ischemic attack (TIA), and cerebral infarction without residual deficits

== ENCOUNTER 2018-07-13 13:57 | Inpatient (IN) | payer MEDICAID ==
[2018-07-13 13:57] VITALS: BMI 22.3
[2018-07-13] MEDS ORDERED: Sodium Chloride 0.9% 1,000 ML IV STA (14:25)
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
[2018-07-13] MEDS: Albuterol-Ipratrop 3 mg / 0.5 (3 ml) UD IH SCH ×3 (15:50→16:10)
--- NOTE | 2018-07-13 16:06 | RAD ---
Date of service: 07/13/2018 HISTORY: medical clearance COMPARISON: Chest radiograph dated 06/29/2018 FINDINGS: LUNGS: There appears to be mild pulmonary venous congestive changes with bilateral lower lobe alveolar-type infiltrates and possible small bilateral effusions PLEURA: As above. No pneumothorax apparent. CARDIOVASCULAR: No aortic atherosclerotic calcification present. Heart size is enlarged.. No pulmonary vascular congestion. OSSEOUS STRUCTURES: No significant abnormalities. VISUALIZED UPPER ABDOMEN: Normal. OTHER FINDINGS: None. IMPRESSION: There appears to be mild pulmonary venous congestive changes with bilateral lower lobe alveolar-type infiltrates and possible small bilateral effusions
[2018-07-13 17:10] LABS: BASO # 0.03 K/mm3 (0.0-2.0); BASO % 0.4 % (0.0-3.0); EOS # 0.1 (0.0-0.7); EOS % 0.8 % (1.5-5.0); LYMPH # 1.3 (1.2-3.4); LYMPH % 18.5 % (22.0-35.0); MEAN CORPUSCULAR HEMOGLOBIN 30.2 pg (25.0-35.0); MEAN CORPUSCULAR HGB CONC 32.4 g/dl (31.0-37.0); MEAN PLATELET VOLUME 10.1 fl (7.0-11.0); MONO # 0.3 (0.1-0.6); MONO % 4.2 % (1.0-6.0); RBC 4.31 10^6/uL (3.5-6.1); RED CELL DISTRIBUTION WIDTH 14.2 % (11.5-14.5); WHITE BLOOD COUNT 7.2 10^3/uL (4.5-11.0)
[2018-07-13 17:19] LABS: ALB/GLOB RATIO 1.2 (1.1-1.8); ALBUMIN 4.2 g/dL (3.0-4.8); ALT/SGPT 23 U/L (7-56); AST/SGOT 31 U/L (14-36); BLOOD UREA NITROGEN 12 mg/dL (7-21); CALCIUM 9.3 mg/dL (8.4-10.5); GFR NON-AFRICAN AMERICAN > 60
[2018-07-13] MEDS ORDERED: Azithromycin 500MG/NS 250ml 500 MG/250 ML BAG IVPB STA (21:51)
[2018-07-13] MEDS ORDERED: cefTRIAXone 1 gm 1 GM/100 ML BAG IVPB STA (21:51)
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
[2018-07-13] MEDS ORDERED: Albuterol-Ipratrop 3 mg / 0.5 (3 ml) UD IH STA (22:46)
[2018-07-13] MEDS ORDERED: Albuterol-Ipratrop 3 mg / 0.5 (3 ml) UD IH PRN (22:47)
[2018-07-13 23:43] LABS: BENZODIAZEPINES, UR NEGATIVE (NEGATIVE)
[2018-07-13 23:49] LABS: BARBITURATES, UR NEGATIVE (NEGATIVE); OPIATES, UR POSITIVE (NEGATIVE); PHENCYCLIDINE, UR NEGATIVE (NEGATIVE)
[2018-07-14 01:07] LABS: ARTERIAL BLOOD GAS HCO3 20.4 mmol/L (21-28); ARTERIAL BLOOD GAS O2 SAT 95.4 % (95-98); ARTERIAL BLOOD GAS PCO2 37 mm/Hg (35-45); ARTERIAL BLOOD GAS PH 7.35 (7.35-7.45); ARTERIAL BLOOD GAS TCO2 21.5 mmol.L (22-28)
[2018-07-14] MEDS: Albuterol-Ipratrop 3 mg / 0.5 (3 ml) UD IH SCH ×4 (04:00→19:40)
[2018-07-14] MEDS: Pantoprazole 40 mg EC Tab PO SCH (05:14)
[2018-07-14 07:10] LABS: HEMOGLOBIN 11.7 g/dL (12.0-16.0); MEAN CELL VOLUME 93.4 fl (80.0-105.0); MEAN CORPUSCULAR HEMOGLOBIN 29.6 pg (25.0-35.0); MEAN CORPUSCULAR HGB CONC 31.7 g/dl (31.0-37.0); MEAN PLATELET VOLUME 9.8 fl (7.0-11.0); RBC 3.95 10^6/uL (3.5-6.1); RED CELL DISTRIBUTION WIDTH 14.2 % (11.5-14.5); WHITE BLOOD COUNT 9.4 10^3/uL (4.5-11.0)
[2018-07-14 07:19] LABS: ALB/GLOB RATIO 1.2 (1.1-1.8); ALT/SGPT 17 U/L (7-56); AST/SGOT 26 U/L (14-36); BLOOD UREA NITROGEN 13 mg/dL (7-21); CALCIUM 9.1 mg/dL (8.4-10.5); GFR NON-AFRICAN AMERICAN > 60
[2018-07-14] MEDS: Vancomycin 1gm in NS 250ml 1 GM/250 ML BAG IVPB SCH ×2 (08:41→20:26)
--- NOTE | 2018-07-14 09:56 | CT ---
Date of service: 07/13/2018 PROCEDURE: CT Chest without contrast HISTORY: bilateral infiltrates? COMPARISON: None available. TECHNIQUE: Contiguous axial images were obtained through the chest without intravenous contrast enhancement. Sagittal and coronal reconstructions were performed. Radiation dose: Total exam DLP = 236.37 mGy-cm. This CT exam was performed using one or more of the following dose reduction techniques: Automated exposure control, adjustment of the mA and/or kV according to patient size, and/or use of iterative reconstruction technique. FINDINGS: LUNGS: Bibasilar infiltrates with consolidation in the posterior segment of the right lower lobe and additional multifocal areas of consolidation. MEDIASTINUM: Unremarkable thoracic aorta. No aneurysm. Normal sized heart. Main pulmonary artery unremarkable. No vascular congestion. No lymphadenopathy. No aortic atherosclerotic calcification. PLEURA: No pleural fluid. No pneumothorax. BONES: No fracture. No destructive lesion. UPPER ABDOMEN: Grossly unremarkable. OTHER FINDINGS: None. IMPRESSION: Multifocal pneumonia particularly in the posterior segment of the right lower lobe.
[2018-07-14] MEDS ORDERED: cefTRIAXone 1 gm 1 GM/100 ML BAG IVPB SCH (10:00)
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
[2018-07-14] MEDS: Aztreonam 1 Gm in NS 100mL 100 ML IVPB SCH ×2 (12:25→22:29)
[2018-07-14] MEDS: MethylPREDNISolone 40 mg Vial IVP SCH ×2 (12:27→21:08)
[2018-07-14] MEDS: Azithromycin 250 MG in Sodium Chloride 0.9% 250 ML IVPB SCH (13:23)
[2018-07-14] MEDS: Folic Acid 1 MG, Thiamine 100 MG, Multivitamin (MVI) 10 ML in Dextrose 5% In Water 1,00... IV SCH ×2 (13:25)
[2018-07-15] MEDS: Albuterol-Ipratrop 3 mg / 0.5 (3 ml) UD IH SCH ×4 (03:00→20:33)
[2018-07-15] MEDS: Aztreonam 1 Gm in NS 100mL 100 ML IVPB SCH ×3 (05:21→21:52)
[2018-07-15] MEDS: Pantoprazole 40 mg EC Tab PO SCH (05:22)
[2018-07-15 07:22] LABS: HEMOGLOBIN 11.6 g/dL (12.0-16.0); MEAN CELL VOLUME 92.4 fl (80.0-105.0); MEAN CORPUSCULAR HEMOGLOBIN 29.4 pg (25.0-35.0); MEAN CORPUSCULAR HGB CONC 31.9 g/dl (31.0-37.0); MEAN PLATELET VOLUME 10.1 fl (7.0-11.0); RBC 3.94 10^6/uL (3.5-6.1); WHITE BLOOD COUNT 8.4 10^3/uL (4.5-11.0)
[2018-07-15 07:31] LABS: ALB/GLOB RATIO 1.2 (1.1-1.8); ALBUMIN 3.8 g/dL (3.0-4.8); ALT/SGPT 13 U/L (7-56); AST/SGOT 22 U/L (14-36); BLOOD UREA NITROGEN 18 mg/dL (7-21); CALCIUM 9.2 mg/dL (8.4-10.5); GFR NON-AFRICAN AMERICAN > 60
[2018-07-15] MEDS: Vancomycin 1gm in NS 250ml 1 GM/250 ML BAG IVPB SCH ×2 (08:27→21:51)
[2018-07-15] MEDS: Multivitamin Therapeutic Tab PO SCH (11:16)
[2018-07-15] MEDS: MethylPREDNISolone 40 mg Vial IVP SCH ×2 (11:16→21:53)
[2018-07-15] MEDS: Azithromycin 250 MG in Sodium Chloride 0.9% 250 ML IVPB SCH (11:17)
--- NOTE | 2018-07-15 14:21 | CP.PCM.PN ---
<Sagar Batista - Last Filed: 07/15/18 14:18> Subjective - Date & Time of Evaluation Date of Evaluation: 07/15/18 Time of Evaluation: 07:30 - Subjective Subjective: Infectious disease progress note: Patient seen and examined at bedside. No acute events overnight. Patient still complains of some cough however denies any shortness of breath. No other complaints 12 point ROS performed and negative other than stated above Objective - Vital Signs/Intake and Output Vital Signs (last 24 hours): Temp Pulse Resp BP Pulse Ox 97.8 F 82 20 131/88 97 07/15/18 08:04 07/15/18 08:04 07/15/18 08:04 07/15/18 08:04 07/15/18 08:04 Intake and Output: 07/15/18 07/15/18 06:59 18:59 Intake Total 120 Output Total 0 Balance 120 - Medications Medications: Current Medications Albuterol/Ipratropium (Duoneb 3 Mg/0.5 Mg (3 Ml) Ud) 3 ml IH Q4H PRN PRN Reason: Shortness of Breath Albuterol/Ipratropium (Duoneb 3 Mg/0.5 Mg (3 Ml) Ud) 3 ml IH [id number] [facility] Last Admin: 07/15/18 13:38 Dose: 3 ml Aripiprazole (Abilify) 5 mg PO DAILY [facility] Last Admin: 07/15/18 11:12 Dose: 5 mg Atorvastatin Calcium (Lipitor) 20 mg PO DIN [facility] Last Admin: 07/14/18 17:04 Dose: 20 mg Benztropine Mesylate (Cogentin) 1 mg PO BID [facility] Last Admin: 07/15/18 11:15 Dose: 1 mg Folic Acid (Folic Acid) 1 mg PO DAILY [facility] Last Admin: 07/15/18 11:15 Dose: 1 mg Heparin Sodium (Porcine) (Heparin) 5,000 units SC Q8 [facility]; Protocol Last Admin: 07/15/18 05:21 Dose: 5,000 units Hydroxyzine HCl (Atarax) 50 mg PO DAILY [facility] Last Admin: 07/15/18 11:13 Dose: 50 mg Azithromycin 250 mg/ Sodium (Chloride) 250 mls @ 167 mls/hr IVPB DAILY [facility]; Protocol Last Admin: 07/15/18 11:17 Dose: 167 mls/hr Vancomycin HCl (Vancomycin 1gm) 1 gm in 250 mls @ 167 mls/hr IVPB Q12H [facility]; Protocol Last Admin: 07/15/18 08:27 Dose: 167 mls/hr Aztreonam (Azactam 1 Gm) 100 mls @ 100 mls/hr IVPB Q8 [facility]; Protocol Stop: 07/21/18 10:16 Last Admin: 07/15/18 05:21 Dose: 100 mls/hr Lorazepam (Ativan) 2 mg IVP Q6H PRN; Protocol PRN Reason: Anxiety Methylprednisolone (Solu-Medrol) 40 mg IVP Q12 [facility] Last Admin: 07/15/18 11:16 Dose: 40 mg Mirtazapine (Remeron) 45 mg PO DAILY [facility] Last Admin: 07/15/18 11:15 Dose: 45 mg Multivitamins (Thera Tab) 1 tab PO DAILY [facility] Last Admin: 07/15/18 11:16 Dose: 1 tab Nicotine (Nicoderm Cq) 1 patch TD DAILY [facility] Last Admin: 07/15/18 11:15 Dose: 1 patch Pantoprazole Sodium (Protonix Ec Tab) 40 mg PO 0600 [facility] Last Admin: 07/15/18 05:22 Dose: 40 mg Thiamine HCl (Vitamin B1 Tab) 100 mg PO DAILY [facility] Last Admin: 07/15/18 11:16 Dose: 100 mg - Labs Labs: 07/15/18 06:45 07/15/18 06:45 - Constitutional Appears: No Acute Distress - Head Exam Head Exam: ATRAUMATIC, NORMOCEPHALIC - Eye Exam Eye Exam: EOMI - ENT Exam ENT Exam: Mucous Membranes Moist - Respiratory Exam Respiratory Exam: Clear to Ausculation Bilateral, Wheezes. absent: Rales, Rhonchi Additional comments: Bilateral - Cardiovascular Exam Cardiovascular Exam: RRR, +S1, +S2 - GI/Abdominal Exam GI & Abdominal Exam: Soft. absent: Tenderness - Extremities Exam Extremities Exam: absent: Calf Tenderness, Pedal Edema - Neurological Exam Neurological Exam: Alert, Awake, Oriented x3 - Psychiatric Exam Psychiatric exam: Normal Mood - Skin Skin Exam: Dry, Warm Assessment and Plan - Assessment and Plan (Free Text) Assessment: 62 F with PMHx IV drug abuse with heroin, COPD, Seizures, Depression who presented to the ED BIBA for heroin intoxication. Pt also c/o cough and CXR showed HCAP with multilobar pneumonia. Cont antibiotics with Vanc, Azithro, and Aztreonam F/u septic work up - Blood cultures negative thus far F/u HIV - neg Procal was neg Cpnt to monitor Case and plan was reviewed and discussed with Dr Malik. <Abran Malik - Last Filed: 07/15/18 15:38> Objective - Vital Signs/Intake and Output Vital Signs (last 24 hours): Temp Pulse Resp BP Pulse Ox 97.8 F 82 20 131/88 97 07/15/18 08:04 07/15/18 08:04 07/15/18 08:04 07/15/18 08:04 07/15/18 08:04 Intake and Output: 07/15/18 07/15/18 06:59 18:59 Intake Total 120 Output Total 0 Balance 120 - Medications Medications: Current Medications Albuterol/Ipratropium (Duoneb 3 Mg/0.5 Mg (3 Ml) Ud) 3 ml IH Q4H PRN PRN Reason: Shortness of Breath Albuterol/Ipratropium (Duoneb 3 Mg/0.5 Mg (3 Ml) Ud) 3 ml IH [id number] [facility] Last Admin: 07/15/18 13:38 Dose: 3 ml Aripiprazole (Abilify) 5 mg PO DAILY [facility] Last Admin: 07/15/18 11:12 Dose: 5 mg Atorvastatin Calcium (Lipitor) 20 mg PO DIN [facility] Last Admin: 07/14/18 17:04 Dose: 20 mg Benztropine Mesylate (Cogentin) 1 mg PO BID [facility] Last Admin: 07/15/18 11:15 Dose: 1 mg Folic Acid (Folic Acid) 1 mg PO DAILY [facility] Last Admin: 07/15/18 11:15 Dose: 1 mg Heparin Sodium (Porcine) (Heparin) 5,000 units SC Q8 [facility]; Protocol Last Admin: 07/15/18 14:43 Dose: 5,000 units Hydroxyzine HCl (Atarax) 50 mg PO DAILY [facility] Last Admin: 07/15/18 11:13 Dose: 50 mg Azithromycin 250 mg/ Sodium (Chloride) 250 mls @ 167 mls/hr IVPB DAILY [facility]; Protocol Last Admin: 07/15/18 11:17 Dose: 167 mls/hr Vancomycin HCl (Vancomycin 1gm) 1 gm in 250 mls @ 167 mls/hr IVPB Q12H [facility]; Protocol Last Admin: 07/15/18 08:27 Dose: 167 mls/hr Aztreonam (Azactam 1 Gm) 100 mls @ 100 mls/hr IVPB Q8 [facility]; Protocol Stop: 07/21/18 10:16 Last Admin: 07/15/18 14:22 Dose: 100 mls/hr Lorazepam (Ativan) 2 mg IVP Q6H [facility]; Protocol PRN Reason: Anxiety Methylprednisolone (Solu-Medrol) 40 mg IVP Q12 [facility] Last Admin: 07/15/18 11:16 Dose: 40 mg Mirtazapine (Remeron) 45 mg PO DAILY [facility] Last Admin: 07/15/18 11:15 Dose: 45 mg Multivitamins (Thera Tab) 1 tab PO DAILY [facility] Last Admin: 07/15/18 11:16 Dose: 1 tab Nicotine (Nicoderm Cq) 1 patch TD DAILY [facility] Last Admin: 07/15/18 11:15 Dose: 1 patch Pantoprazole Sodium (Protonix Ec Tab) 40 mg PO 0600 [facility] Last Admin: 07/15/18 05:22 Dose: 40 mg Thiamine HCl (Vitamin B1 Tab) 100 mg PO DAILY [facility] Last Admin: 07/15/18 11:16 Dose: 100 mg - Labs Labs: 07/15/18 06:45 07/15/18 06:45 Assessment and Plan - Assessment and Plan (Free Text) Assessment: Infectious diseases Attending Physician Attestation Patient seen and examined, discussed with medical administrative assistant. I have reviewed the patient's history of present illness, past medical, social, personal and family histories, pertinent physical exam findings, course so far in this hospital admission, pertinent laboratory and imaging results. I agree with the above findings, assessment and plan. In addition, continue Azactam, Vancomycin and Zithromax for patietn with probable multifocal HCAP. Blood cx negative so far. Follow up nasal MRSA screen. Target 4-7 days of antibiotics.
--- NOTE | 2018-07-15 22:42 | CP.PCM.PN ---
<Con Cosme - Last Filed: 07/15/18 22:27> Subjective - Date & Time of Evaluation Date of Evaluation: 07/15/18 Time of Evaluation: 12:00 - Subjective Subjective: INTERNAL MEDICINE PROGRESS NOTE FOR DR. KATHERIN Cosme PGY1 Pt seen and examined at bedside this am. Pt still coughing. Pt tolerated 6-min walk test with resident. Denies acute complaints Objective - Vital Signs/Intake and Output Vital Signs (last 24 hours): Temp Pulse Resp BP Pulse Ox 98.9 F 100 H 19 151/95 H 95 07/15/18 16:44 07/15/18 16:44 07/15/18 16:44 07/15/18 16:44 07/15/18 16:44 - Medications Medications: Current Medications Albuterol/Ipratropium (Duoneb 3 Mg/0.5 Mg (3 Ml) Ud) 3 ml IH Q4H PRN PRN Reason: Shortness of Breath Albuterol/Ipratropium (Duoneb 3 Mg/0.5 Mg (3 Ml) Ud) 3 ml IH [id number] [facility] Last Admin: 07/15/18 20:33 Dose: 3 ml Aripiprazole (Abilify) 5 mg PO DAILY [facility] Last Admin: 07/15/18 11:12 Dose: 5 mg Atorvastatin Calcium (Lipitor) 20 mg PO DIN [facility] Last Admin: 07/15/18 18:41 Dose: 20 mg Benztropine Mesylate (Cogentin) 1 mg PO BID [facility] Last Admin: 07/15/18 18:41 Dose: 1 mg Folic Acid (Folic Acid) 1 mg PO DAILY [facility] Last Admin: 07/15/18 11:15 Dose: 1 mg Heparin Sodium (Porcine) (Heparin) 5,000 units SC Q8 [facility]; Protocol Last Admin: 07/15/18 21:52 Dose: 5,000 units Hydroxyzine HCl (Atarax) 50 mg PO DAILY [facility] Last Admin: 07/15/18 11:13 Dose: 50 mg Azithromycin 250 mg/ Sodium (Chloride) 250 mls @ 167 mls/hr IVPB DAILY [facility]; Protocol Last Admin: 07/15/18 11:17 Dose: 167 mls/hr Vancomycin HCl (Vancomycin 1gm) 1 gm in 250 mls @ 167 mls/hr IVPB Q12H [facility]; Protocol Last Admin: 07/15/18 21:51 Dose: 167 mls/hr Aztreonam (Azactam 1 Gm) 100 mls @ 100 mls/hr IVPB Q8 [facility]; Protocol Stop: 07/21/18 10:16 Last Admin: 07/15/18 21:52 Dose: 100 mls/hr Lorazepam (Ativan) 2 mg IVP Q6H PRN; Protocol PRN Reason: Anxiety Methylprednisolone (Solu-Medrol) 40 mg IVP Q12 [facility] Last Admin: 07/15/18 21:53 Dose: 40 mg Mirtazapine (Remeron) 45 mg PO DAILY [facility] Last Admin: 07/15/18 11:15 Dose: 45 mg Multivitamins (Thera Tab) 1 tab PO DAILY [facility] Last Admin: 07/15/18 11:16 Dose: 1 tab Nicotine (Nicoderm Cq) 1 patch TD DAILY [facility] Last Admin: 07/15/18 11:15 Dose: 1 patch Pantoprazole Sodium (Protonix Ec Tab) 40 mg PO 0600 [facility] Last Admin: 07/15/18 05:22 Dose: 40 mg Thiamine HCl (Vitamin B1 Tab) 100 mg PO DAILY [facility] Last Admin: 07/15/18 11:16 Dose: 100 mg - Labs Labs: 07/15/18 06:45 07/15/18 06:45 - Constitutional Appears: Well, Non-toxic, No Acute Distress - Head Exam Head Exam: NORMAL INSPECTION, NORMOCEPHALIC - Eye Exam Eye Exam: EOMI, Normal appearance - ENT Exam ENT Exam: Mucous Membranes Moist, Normal Exam - Neck Exam Neck Exam: Full ROM - Respiratory Exam Respiratory Exam: Clear to Ausculation Bilateral, Wheezes (minimal), NORMAL BREATHING PATTERN - Cardiovascular Exam Cardiovascular Exam: Tachycardia, +S1, +S2 - GI/Abdominal Exam GI & Abdominal Exam: Soft. absent: Tenderness - Extremities Exam Extremities Exam: Normal Inspection. absent: Calf Tenderness - Back Exam Back Exam: NORMAL INSPECTION - Neurological Exam Neurological Exam: Alert, Awake, Oriented x3 - Psychiatric Exam Psychiatric exam: Normal Affect, Normal Mood - Skin Skin Exam: Dry, Intact, Warm Assessment and Plan - Assessment and Plan (Free Text) Assessment: 62 year old female with PMHx COPD, Heroin abuse, Seizures, ?Anxiety, ?Depression who presented to the ED BIBA for heroin intoxication in public. Patient was previously [place] [facility] [place]. Patient admitted for HCAP with Multilobar PNA and heroin intoxication. Plan: HCAP with Multilobar PNA continue vanc/aztreonam/azithro per ID recs NC @ 2L continue duoneb louise/prn pancultures negative @48hrs CXR: mild pulmonary venous congestion with bilateral lower lobe alveolar infiltrates and possible small bilateral effusions Chest CT (prelim): dense areas of infiltrate at the right mid and lower lung and left lower lung. Likely inflammatory in nature. COPD Exacerbation continue solu-medrol 40Q12 continue aztreonam/azitho continue duonebs 6 min walk test Heroin Intoxication Utox positive for opiates c/w nasal cannula Advised on cessation EtOH Withdrawal CIWA protocol ativan 2Q6 prn thiamine/multivitamin/folic acid banana bag HLD Continue lipitor 20 Anxiety Continue home aripiprazole, benztropine, hydroxyzine, mirtazapine Hx Tobacco Abuse nicotine patch daily DVT/GI PPx: Hep/PTX Dispo: Patient will be monitored on the floor. Case seen, examined and discussed with attending physician, Dr. Katherin Cosme PGY1 <Marquez Duggan - Last Filed: 07/17/18 18:55> Objective - Vital Signs/Intake and Output Vital Signs (last 24 hours): Temp Pulse Resp BP Pulse Ox 97.7 F 86 20 151/91 H 94 L 07/16/18 08:38 07/16/18 08:38 07/16/18 08:38 07/16/18 08:38 07/16/18 08:38 - Labs Labs: 07/16/18 06:30 07/16/18 06:30 Attending/Attestation - Attestation I have personally seen and examined this patient.: Yes I have fully participated in the care of the patient.: Yes I have reviewed all pertinent clinical information, including history, physical exam and plan: Yes Notes (Text): 07/17/18 18:50 Attending note; Patient seen and examined with resident. Patient is alert and awake. Complaining of cough and shortness of breath. Improving slowly. On oxygen. Denies any chest pain. Patient is a 62-year-old female past medical history significant for hyperlipidemia, hypertension, type 2 diabetes, COPD, anxiety, drug abuse, alcohol abuse, and tobacco abuse is admitted for off and shortness of breath. 1. Acute COPD exacerbation; continue oxygen, DuoNeb and IV steroids. 2. Healthcare associated pneumonia; continue vancomycin, Azactam and a zithromycin. ID evaluation appreciated. Improving slowly. 3. Chronic heroin abuse; complete drug abuse cessation is strongly advised. Information given about outpatient drug rehabilitation program. washtub worker evaluation appreciated. 4. alcohol abuse. Complete alcohol cessation is strongly advised . Continue IV Ativan when necessary .Continue with CIWA. Continue thiamine, folic acid, and multivitamin. 5. depression; Continue home aripiprazole, benztropine, hydroxyzine, mirtazapine. 6. History of smoking; complete smoking cessation is strongly advised. Currently on NicoDerm patch. Patient is willing to go to outpatient rehabilitation. Case discussed with social worker psychiatric in detail. Outpatient rehabilitation information given. Prognosis is poor secondary to continuous alcohol, drug abuse and noncompliance with follow-up. Patient was given appointment with [place] [facility] [place]. But patient did not follow- up. 07/17/18 18:54
[2018-07-16] MEDS: Albuterol-Ipratrop 3 mg / 0.5 (3 ml) UD IH SCH ×3 (01:57→13:55)
[2018-07-16 06:54] LABS: HEMOGLOBIN 12.8 g/dL (12.0-16.0); MEAN CELL VOLUME 91.8 fl (80.0-105.0); MEAN CORPUSCULAR HEMOGLOBIN 29.8 pg (25.0-35.0); MEAN CORPUSCULAR HGB CONC 32.5 g/dl (31.0-37.0); MEAN PLATELET VOLUME 10.1 fl (7.0-11.0); RBC 4.29 10^6/uL (3.5-6.1); WHITE BLOOD COUNT 9.1 10^3/uL (4.5-11.0)
[2018-07-16] MEDS: Pantoprazole 40 mg EC Tab PO SCH (07:00)
[2018-07-16] MEDS: Aztreonam 1 Gm in NS 100mL 100 ML IVPB SCH ×2 (07:00→13:59)
[2018-07-16 07:29] LABS: ALB/GLOB RATIO 1.2 (1.1-1.8); ALBUMIN 4.3 g/dL (3.0-4.8); ALT/SGPT 22 U/L (7-56); AST/SGOT 34 U/L (14-36); BLOOD UREA NITROGEN 12 mg/dL (7-21); CALCIUM 9.6 mg/dL (8.4-10.5); GFR NON-AFRICAN AMERICAN > 60
--- NOTE | 2018-07-16 08:29 | CP.PCM.PN ---
<Sagar Batista - Last Filed: 07/16/18 14:53> Subjective - Date & Time of Evaluation Date of Evaluation: 07/16/18 Time of Evaluation: 07:10 - Subjective Subjective: Infectious disease progress note: Patient seen and examined at bedside. No acute events overnight. Patient complains of some cough and wheezing. No shortness of breath. No other complaints 12 point ROS performed and negative other than stated above Objective - Vital Signs/Intake and Output Vital Signs (last 24 hours): Temp Pulse Resp BP Pulse Ox 98.9 F 100 H 19 151/95 H 95 07/15/18 16:44 07/15/18 16:44 07/15/18 16:44 07/15/18 16:44 07/15/18 16:44 Intake and Output: 07/16/18 07/16/18 06:59 18:59 Intake Total 240 Balance 240 - Medications Medications: Current Medications Albuterol/Ipratropium (Duoneb 3 Mg/0.5 Mg (3 Ml) Ud) 3 ml IH Q4H PRN PRN Reason: Shortness of Breath Albuterol/Ipratropium (Duoneb 3 Mg/0.5 Mg (3 Ml) Ud) 3 ml IH [id number] [facility] Last Admin: 07/16/18 08:00 Dose: 3 ml Aripiprazole (Abilify) 5 mg PO DAILY [facility] Last Admin: 07/15/18 11:12 Dose: 5 mg Atorvastatin Calcium (Lipitor) 20 mg PO DIN [facility] Last Admin: 07/15/18 18:41 Dose: 20 mg Benztropine Mesylate (Cogentin) 1 mg PO BID [facility] Last Admin: 07/15/18 18:41 Dose: 1 mg Folic Acid (Folic Acid) 1 mg PO DAILY [facility] Last Admin: 07/15/18 11:15 Dose: 1 mg Heparin Sodium (Porcine) (Heparin) 5,000 units SC Q8 [facility]; Protocol Last Admin: 07/16/18 07:03 Dose: 5,000 units Hydroxyzine HCl (Atarax) 50 mg PO DAILY [facility] Last Admin: 07/15/18 11:13 Dose: 50 mg Azithromycin 250 mg/ Sodium (Chloride) 250 mls @ 167 mls/hr IVPB DAILY [facility]; Protocol Last Admin: 07/15/18 11:17 Dose: 167 mls/hr Vancomycin HCl (Vancomycin 1gm) 1 gm in 250 mls @ 167 mls/hr IVPB Q12H [facility]; Protocol Last Admin: 07/15/18 21:51 Dose: 167 mls/hr Aztreonam (Azactam 1 Gm) 100 mls @ 100 mls/hr IVPB Q8 [facility]; Protocol Stop: 07/21/18 10:16 Last Admin: 07/16/18 07:00 Dose: 100 mls/hr Lorazepam (Ativan) 2 mg IVP Q6H PRN; Protocol PRN Reason: Anxiety Methylprednisolone (Solu-Medrol) 40 mg IVP Q12 [facility] Last Admin: 07/15/18 21:53 Dose: 40 mg Mirtazapine (Remeron) 45 mg PO DAILY [facility] Last Admin: 07/15/18 11:15 Dose: 45 mg Multivitamins (Thera Tab) 1 tab PO DAILY [facility] Last Admin: 07/15/18 11:16 Dose: 1 tab Nicotine (Nicoderm Cq) 1 patch TD DAILY [facility] Last Admin: 07/15/18 11:15 Dose: 1 patch Pantoprazole Sodium (Protonix Ec Tab) 40 mg PO 0600 [facility] Last Admin: 07/16/18 07:00 Dose: 40 mg Thiamine HCl (Vitamin B1 Tab) 100 mg PO DAILY [facility] Last Admin: 07/15/18 11:16 Dose: 100 mg - Labs Labs: 07/16/18 06:30 07/16/18 06:30 - Constitutional Appears: No Acute Distress - Head Exam Head Exam: ATRAUMATIC, NORMOCEPHALIC - Eye Exam Eye Exam: EOMI - ENT Exam ENT Exam: Mucous Membranes Moist - Respiratory Exam Respiratory Exam: Clear to Ausculation Bilateral (no r/r/w) - Cardiovascular Exam Cardiovascular Exam: REGULAR RHYTHM, +S1, +S2 - GI/Abdominal Exam GI & Abdominal Exam: Soft (ntnd) - Neurological Exam Neurological Exam: Alert, Awake, Oriented x3 - Psychiatric Exam Psychiatric exam: Normal Mood - Skin Skin Exam: Dry, Warm Assessment and Plan - Assessment and Plan (Free Text) Assessment: 62 F with PMHx IV drug abuse with heroin, COPD, Seizures, Depression who presented to the ED BIBA for heroin intoxication. Pt also c/o cough and CXR showed HCAP with multilobar pneumonia. D/c Vanc, and Aztreonam - Cont Azithro as an outpatient upon discharge for 3-4 days F/u septic work up including blood cultures negative thus far Cont to monitor Case and plan was reviewed and discussed with Dr Malik. <Abran Malik - Last Filed: 07/16/18 14:58> Objective - Vital Signs/Intake and Output Vital Signs (last 24 hours): Temp Pulse Resp BP Pulse Ox 97.7 F 86 20 151/91 H 94 L 07/16/18 08:38 07/16/18 08:38 07/16/18 08:38 07/16/18 08:38 07/16/18 08:38 Intake and Output: 07/16/18 07/16/18 06:59 18:59 Intake Total 240 Balance 240 - Medications Medications: Current Medications Albuterol/Ipratropium (Duoneb 3 Mg/0.5 Mg (3 Ml) Ud) 3 ml IH Q4H PRN PRN Reason: Shortness of Breath Albuterol/Ipratropium (Duoneb 3 Mg/0.5 Mg (3 Ml) Ud) 3 ml IH [id number] [facility] Last Admin: 07/16/18 13:55 Dose: 3 ml Aripiprazole (Abilify) 5 mg PO DAILY [facility] Last Admin: 07/16/18 10:58 Dose: 5 mg Atorvastatin Calcium (Lipitor) 20 mg PO DIN [facility] Last Admin: 07/15/18 18:41 Dose: 20 mg Benztropine Mesylate (Cogentin) 1 mg PO BID [facility] Last Admin: 07/16/18 10:58 Dose: 1 mg Folic Acid (Folic Acid) 1 mg PO DAILY [facility] Last Admin: 07/16/18 10:58 Dose: 1 mg Heparin Sodium (Porcine) (Heparin) 5,000 units SC Q8 [facility]; Protocol Last Admin: 07/16/18 14:03 Dose: Not Given Hydroxyzine HCl (Atarax) 50 mg PO DAILY [facility] Last Admin: 07/16/18 10:58 Dose: 50 mg Aztreonam (Azactam 1 Gm) 100 mls @ 100 mls/hr IVPB Q8 [facility]; Protocol Stop: 07/21/18 10:16 Last Admin: 07/16/18 13:59 Dose: 100 mls/hr Lorazepam (Ativan) 2 mg IVP Q6H [facility]; Protocol PRN Reason: Anxiety Methylprednisolone (Solu-Medrol) 40 mg IVP Q12 [facility] Last Admin: 07/16/18 10:57 Dose: 40 mg Mirtazapine (Remeron) 45 mg PO DAILY [facility] Last Admin: 07/16/18 10:59 Dose: 45 mg Multivitamins (Thera Tab) 1 tab PO DAILY [facility] Last Admin: 07/16/18 10:58 Dose: 1 tab Nicotine (Nicoderm Cq) 1 patch TD DAILY [facility] Last Admin: 07/16/18 10:59 Dose: 1 patch Pantoprazole Sodium (Protonix Ec Tab) 40 mg PO 0600 [facility] Last Admin: 07/16/18 07:00 Dose: 40 mg Thiamine HCl (Vitamin B1 Tab) 100 mg PO DAILY [facility] Last Admin: 07/16/18 10:58 Dose: 100 mg - Labs Labs: 07/16/18 06:30 07/16/18 06:30 Assessment and Plan - Assessment and Plan (Free Text) Assessment: Infectious diseases Attending Physician Attestation Patient seen and examined, discussed with medical lab director. I have reviewed the patient's history of present illness, past medical, social, personal and family histories, pertinent physical exam findings, course so far in this hospital admission, pertinent laboratory and imaging results. I agree with the above findings, assessment and plan. In addition, PCT is <0.05, cultures have been ne gative - can switch to PO Zithromax for another 3-5 days for patient with HCAP, multilobar with COPD exacerbation. Should follow up with PMD as outpatient.
[2018-07-16 08:39] VITALS: BP 151/91; PULSE 86; RESP 20; TEMP 97.7; O2SAT 94
[2018-07-16] MEDS: Vancomycin 1gm in NS 250ml 1 GM/250 ML BAG IVPB SCH (09:55)
[2018-07-16] MEDS: MethylPREDNISolone 40 mg Vial IVP SCH (10:57)
[2018-07-16] MEDS: Multivitamin Therapeutic Tab PO SCH (10:58)
[2018-07-16] MEDS: Azithromycin 250 MG in Sodium Chloride 0.9% 250 ML IVPB SCH (11:00)
--- NOTE | 2018-07-16 13:11 | CP.PCM.DIS ---
<BaMarcelloderik - Last Filed: 07/17/18 18:56> Provider - Provider Date of Admission: 07/14/18 16:20 Attending physician: Marquez Duggan MD Primary care physician: Jennifer Carrizales MD Consults: 07/13/18 22:52 Physician Consult Routine Comment: Consulting Provider: Abran Malik Consulting Physician: Abran Malik Reason for Consult: HCAP - Multilobar PNA 07/14/18 01:40 Social Work Referral Routine Comment: JEANETH SCORE 8 Physician Instructions: Reason For Exam: PROTOCOL Time Spent in preparation of Discharge (in minutes): 45 Diagnosis - Discharge Diagnosis (1) COPD exacerbation Status: Chronic (2) Heroin abuse Status: Chronic (3) Heroin overdose Status: Acute Hospital Course - Lab Results Lab Results: Micro Results 07/13/18 22:20 Blood Blood Culture - Preliminary NO GROWTH AFTER 48 HOURS 07/13/18 21:45 Blood Blood Culture - Preliminary NO GROWTH AFTER 48 HOURS Most Recent Lab Values WBC 9.1 10^3/uL (4.5-11.0) 07/16/18 06:30 RBC 4.29 10^6/uL (3.5-6.1) 07/16/18 06:30 Hgb 12.8 g/dL (12.0-16.0) 07/16/18 06:30 Hct 39.4 % (36.0-48.0) 07/16/18 06:30 MCV 91.8 fl (80.0-105.0) 07/16/18 06:30 MCH 29.8 pg (25.0-35.0) 07/16/18 06:30 MCHC 32.5 g/dl (31.0-37.0) 07/16/18 06:30 RDW 14.0 % (11.5-14.5) 07/16/18 06:30 Plt Count 358 10^3/uL (120.0-450.0) 07/16/18 06:30 MPV 10.1 fl (7.0-11.0) 07/16/18 06:30 Neut % (Auto) 76.1 % (50.0-68.0) H 07/13/18 17:03 Lymph % (Auto) 18.5 % (22.0-35.0) L 07/13/18 17:03 [place] % (Auto) 4.2 % (1.0-6.0) 07/13/18 17:03 Eos % (Auto) 0.8 % (1.5-5.0) L 07/13/18 17:03 Baso % (Auto) 0.4 % (0.0-3.0) 07/13/18 17:03 Lymph # (Auto) 1.3 (1.2-3.4) 07/13/18 17:03 [place] # (Auto) 0.3 (0.1-0.6) 07/13/18 17:03 Eos # (Auto) 0.1 (0.0-0.7) 07/13/18 17:03 Baso # (Auto) 0.03 K/mm3 (0.0-2.0) 07/13/18 17:03 Absolute Neuts (auto) 5.45 (1.4-6.5) 07/13/18 17:03 pCO2 37 mm/Hg (35-45) 07/14/18 01:00 pO2 70.0 mm/Hg (80-100) L 07/14/18 01:00 HCO3 20.4 mmol/L (21-28) L 07/14/18 01:00 ABG pH 7.35 (7.35-7.45) 07/14/18 01:00 ABG Total CO2 21.5 mmol.L (22-28) L 07/14/18 01:00 ABG O2 Saturation 95.4 % (95-98) 07/14/18 01:00 ABG Base Excess -4.7 mmol/L (-2.0-3.0) L 07/14/18 01:00 ABG Potassium 4.3 mmol/L (3.6-5.2) 07/14/18 01:00 Sodium 141.0 mmol/L (132-148) 07/14/18 01:00 Chloride 112.0 mmol/L (98-107) H 07/14/18 01:00 Glucose 128 mg/dl (65-105) H 07/14/18 01:00 Lactate 0.6 mmol/L (0.7-2.1) L 07/14/18 01:00 FiO2 28.0 % 07/14/18 01:00 Sodium 141 mmol/L (132-148) 07/16/18 06:30 Potassium 4.4 mmol/L (3.6-5.0) 07/16/18 06:30 Chloride 108 mmol/L (98-107) H 07/16/18 06:30 Carbon Dioxide 25 mmol/L (21-33) 07/16/18 06:30 Anion Gap 13 (10-20) 07/16/18 06:30 BUN 12 mg/dL (7-21) 07/16/18 06:30 Creatinine 0.6 mg/dl (0.7-1.2) L 07/16/18 06:30 Est GFR ( Amer) > 60 07/16/18 06:30 Est GFR (Non-Af Amer) > 60 07/16/18 06:30 POC Glucose (mg/dL) 138 mg/dL (65-110) H 07/13/18 14:08 Random Glucose 148 mg/dL (70-110) H 07/16/18 06:30 Calcium 9.6 mg/dL (8.4-10.5) 07/16/18 06:30 Phosphorus 3.1 mg/dL (2.5-4.5) 07/16/18 06:30 Magnesium 2.1 mg/dL (1.7-2.2) 07/16/18 06:30 Total Bilirubin 0.3 mg/dL (0.2-1.3) 07/16/18 06:30 AST 34 U/L (14-36) 07/16/18 06:30 ALT 22 U/L (7-56) 07/16/18 06:30 Alkaline Phosphatase 109 U/L (38-126) 07/16/18 06:30 NT-Pro-B Natriuret Pep 147 pg/mL (0-450) 07/13/18 17:37 Total Protein 7.8 g/dL (5.8-8.3) 07/16/18 06:30 Albumin 4.3 g/dL (3.0-4.8) 07/16/18 06:30 Globulin 3.5 gm/dL 07/16/18 06:30 Albumin/Globulin Ratio 1.2 (1.1-1.8) 07/16/18 06:30 Procalcitonin < 0.05 NG/ML (0.19-0.49) L 07/13/18 14:10 Arterial Blood Potassium 4.3 mmol/L (3.6-5.2) 07/14/18 01:00 Urine Opiates Screen Positive (NEGATIVE) H 07/13/18 23:00 Urine Methadone Screen Negative (NEGATIVE) 07/13/18 23:00 Ur Barbiturates Screen Negative (NEGATIVE) 07/13/18 23:00 Ur Phencyclidine Scrn Negative (NEGATIVE) 07/13/18 23:00 Ur Amphetamines Screen Negative (NEGATIVE) 07/13/18 23:00 U Benzodiazepines Scrn Negative (NEGATIVE) 07/13/18 23:00 U Oth Cocaine Metabols Negative (NEGATIVE) 07/13/18 23:00 U Cannabinoids Screen Negative (NEGATIVE) 07/13/18 23:00 Alcohol, Quantitative < 10 mg/dL (0-10) 07/13/18 14:10 HIV 1&2 Ag/Ab, 4th Gen Nonreactive (Nonreactive) 07/14/18 08:00 - Hospital Course Hospital Course: Upon Admission 62 year old female with PMHx COPD, Heroin abuse, Seizures, ?Anxiety, ?Depression who presented to the ED [facility] for heroin intoxication in public. Most of the history was obtained from initial triage and ED admission since patient is a poor historian. In the ED, Vitals: Temp 98.4, HR 113, RR 16, SaO2 94%. Medical team was consulted to evaluate the patient. Patient was AAOx3 at bedside. However, she is a poor historian. Patient does not remember what happened prior to arriving to [facility] [place]. Patient's friends were present at bedside who endorsed that patient has been to [facility] numerous times. Previously, she was admitted for seizures and heroin overdose. Patient says she feels fine. Hospital Course pt was found to have multilobar pneumonia, particular in the posterior segment of the right lower lobe. Pt was treated with vancomycin, azithromycin and aztreonam (due to penicillin allergy). Pt was also treated for COPD exacerbation with IV corticosteroids, empiric antibiotics and duoneb scheduled and prn treatments. She was treated with ETOH withdrawal with ativan, banabag and multivitamins. She was continued on her home psychiatry medications. Patients clinical status had improved. She underwent 6-minute walk test and did not become hypoxic. Upon Discharge Pt is feeling much better. Her respiratory status has improved. Her vital signs are stable. She reports she will follow up with her PMD. She states she has plans for stopping heroin use. She reports she has all of her medications at home. She was instructed on lifestyle modifications, medication compliance, outpatient followup and to return to the nearest emergency room if symptoms return or she experiences new symptoms. Discharge Exam - Head Exam Head Exam: ATRAUMATIC, NORMOCEPHALIC - Eye Exam Eye Exam: EOMI, Normal appearance - ENT Exam ENT Exam: Mucous Membranes Moist, Normal Exam - Neck Exam Neck exam: Normal Inspection - Respiratory Exam Respiratory Exam: Decreased Breath Sounds, NORMAL BREATHING PATTERN - Cardiovascular Exam Cardiovascular Exam: REGULAR RHYTHM, +S1, +S2 - GI/Abdominal Exam GI & Abdominal Exam: Soft, Unremarkable - Extremities Exam Extremities exam: normal capillary refill, normal inspection - Back Exam Back exam: NORMAL INSPECTION - Neurological Exam Neurological exam: Alert, Oriented x3 - Psychiatric Exam Psychiatric exam: Normal Affect, Normal Mood - Skin Skin Exam: Dry, Intact, Warm Discharge Plan - Discharge Medications Prescriptions: Albuterol HFA [Ventolin HFA 90 mcg/actuation (8 g)] 2 puff IH [id number] PRN #1 inhaler PRN Reason: Shortness Of Breath Azithromycin [Zithromax] 500 mg PO DAILY 3 Days #3 tab Methylprednisolone [Medrol Dose Pack (21 tabs)] See Taper PO DAILY #21 mg - Follow Up Plan Condition: STABLE Disposition: HOME/ ROUTINE Instructions: Hospital-Acquired Pneumonia, Exacerbation of COPD (DC), Opioid Use Disorder Additional Instructions: Please follow up with your primary care doctor within 3-5 days of discharge from the hospital Please continue the medications that you were taking previously. Please discuss all your medications with your primary care doctor You will be started on the following medications, please take them as directed on the instructions: Azithromycin 500mg daily for 3 days Medrol dose pack: please follow the directions on the packet Albuterol inhaler: please inhale 2 puffs every 6 hours as needed for shortness of breath Please stop using illicit drugs Please stop smoking If your symptoms return, or you experience new symptoms, please return to the nearest emergency room Referrals: Gabriel Bolanos MD [Staff Provider] - <Marquez Duggan - Last Filed: 07/17/18 19:02> Provider - Provider Date of Admission: 07/14/18 16:20 Attending physician: Marquez Duggan MD Primary care physician: Jennifer Carrizales MD Consults: 07/13/18 22:52 Physician Consult Routine Comment: Consulting Provider: Abran Malik Consulting Physician: Abran Malik Reason for Consult: HCAP - Multilobar PNA 07/14/18 01:40 Social Work Referral Routine Comment: JEANETH SCORE 8 Physician Instructions: Reason For Exam: PROTOCOL Hospital Course - Lab Results Lab Results: Micro Results 07/13/18 22:20 Blood Blood Culture - Preliminary NO GROWTH AFTER 3 DAYS 07/13/18 21:45 Blood Blood Culture - Preliminary NO GROWTH AFTER 3 DAYS Most Recent Lab Values WBC 9.1 10^3/uL (4.5-11.0) 07/16/18 06:30 RBC 4.29 10^6/uL (3.5-6.1) 07/16/18 06:30 Hgb 12.8 g/dL (12.0-16.0) 07/16/18 06:30 Hct 39.4 % (36.0-48.0) 07/16/18 06:30 MCV 91.8 fl (80.0-105.0) 07/16/18 06:30 MCH 29.8 pg (25.0-35.0) 07/16/18 06:30 MCHC 32.5 g/dl (31.0-37.0) 07/16/18 06:30 RDW 14.0 % (11.5-14.5) 07/16/18 06:30 Plt Count 358 10^3/uL (120.0-450.0) 07/16/18 06:30 MPV 10.1 fl (7.0-11.0) 07/16/18 06:30 Neut % (Auto) 76.1 % (50.0-68.0) H 07/13/18 17:03 Lymph % (Auto) 18.5 % (22.0-35.0) L 07/13/18 17:03 [place] % (Auto) 4.2 % (1.0-6.0) 07/13/18 17:03 Eos % (Auto) 0.8 % (1.5-5.0) L 07/13/18 17:03 Baso % (Auto) 0.4 % (0.0-3.0) 07/13/18 17:03 Lymph # (Auto) 1.3 (1.2-3.4) 07/13/18 17:03 [place] # (Auto) 0.3 (0.1-0.6) 07/13/18 17:03 Eos # (Auto) 0.1 (0.0-0.7) 07/13/18 17:03 Baso # (Auto) 0.03 K/mm3 (0.0-2.0) 07/13/18 17:03 Absolute Neuts (auto) 5.45 (1.4-6.5) 07/13/18 17:03 pCO2 37 mm/Hg (35-45) 07/14/18 01:00 pO2 70.0 mm/Hg (80-100) L 07/14/18 01:00 HCO3 20.4 mmol/L (21-28) L 07/14/18 01:00 ABG pH 7.35 (7.35-7.45) 07/14/18 01:00 ABG Total CO2 21.5 mmol.L (22-28) L 07/14/18 01:00 ABG O2 Saturation 95.4 % (95-98) 07/14/18 01:00 ABG Base Excess -4.7 mmol/L (-2.0-3.0) L 07/14/18 01:00 ABG Potassium 4.3 mmol/L (3.6-5.2) 07/14/18 01:00 Sodium 141.0 mmol/L (132-148) 07/14/18 01:00 Chloride 112.0 mmol/L (98-107) H 07/14/18 01:00 Glucose 128 mg/dl (65-105) H 07/14/18 01:00 Lactate 0.6 mmol/L (0.7-2.1) L 07/14/18 01:00 FiO2 28.0 % 07/14/18 01:00 Sodium 141 mmol/L (132-148) 07/16/18 06:30 Potassium 4.4 mmol/L (3.6-5.0) 07/16/18 06:30 Chloride 108 mmol/L (98-107) H 07/16/18 06:30 Carbon Dioxide 25 mmol/L (21-33) 07/16/18 06:30 Anion Gap 13 (10-20) 07/16/18 06:30 BUN 12 mg/dL (7-21) 07/16/18 06:30 Creatinine 0.6 mg/dl (0.7-1.2) L 07/16/18 06:30 Est GFR ( Amer) > 60 07/16/18 06:30 Est GFR (Non-Af Amer) > 60 07/16/18 06:30 POC Glucose (mg/dL) 138 mg/dL (65-110) H 07/13/18 14:08 Random Glucose 148 mg/dL (70-110) H 07/16/18 06:30 Calcium 9.6 mg/dL (8.4-10.5) 07/16/18 06:30 Phosphorus 3.1 mg/dL (2.5-4.5) 07/16/18 06:30 Magnesium 2.1 mg/dL (1.7-2.2) 07/16/18 06:30 Total Bilirubin 0.3 mg/dL (0.2-1.3) 07/16/18 06:30 AST 34 U/L (14-36) 07/16/18 06:30 ALT 22 U/L (7-56) 07/16/18 06:30 Alkaline Phosphatase 109 U/L (38-126) 07/16/18 06:30 NT-Pro-B Natriuret Pep 147 pg/mL (0-450) 07/13/18 17:37 Total Protein 7.8 g/dL (5.8-8.3) 07/16/18 06:30 Albumin 4.3 g/dL (3.0-4.8) 07/16/18 06:30 Globulin 3.5 gm/dL 07/16/18 06:30 Albumin/Globulin Ratio 1.2 (1.1-1.8) 07/16/18 06:30 Procalcitonin < 0.05 NG/ML (0.19-0.49) L 07/13/18 14:10 Arterial Blood Potassium 4.3 mmol/L (3.6-5.2) 07/14/18 01:00 Urine Opiates Screen Positive (NEGATIVE) H 07/13/18 23:00 Urine Methadone Screen Negative (NEGATIVE) 07/13/18 23:00 Ur Barbiturates Screen Negative (NEGATIVE) 07/13/18 23:00 Ur Phencyclidine Scrn Negative (NEGATIVE) 07/13/18 23:00 Ur Amphetamines Screen Negative (NEGATIVE) 07/13/18 23:00 U Benzodiazepines Scrn Negative (NEGATIVE) 07/13/18 23:00 U Oth Cocaine Metabols Negative (NEGATIVE) 07/13/18 23:00 U Cannabinoids Screen Negative (NEGATIVE) 07/13/18 23:00 Alcohol, Quantitative < 10 mg/dL (0-10) 07/13/18 14:10 HIV 1&2 Ag/Ab, 4th Gen Nonreactive (Nonreactive) 07/14/18 08:00 Attending/Attestation - Attestation I have personally seen and examined this patient.: Yes I have fully participated in the care of the patient.: Yes I have reviewed all pertinent clinical information, including history, physical exam and plan: Yes Notes (Text): 07/17/18 19:00 Attending note; Patient seen and examined with resident. Patient is alert and awake. cough and shortness of breath improved significantly. Off oxygen. Ambulating without any difficulty. Tolerating diet. Patient is a 62-year-old female past medical history significant for hyperlipidemia, hypertension, type 2 diabetes, COPD, anxiety, drug abuse, alcohol abuse, and tobacco abuse is admitted for off and shortness of breath. 1. Acute COPD exacerbation; treated with oxygen, DuoNeb and IV steroids. Improving. 2. Healthcare associated pneumonia; treated with IV vancomycin, Azactam and azithromycin. Will complete by mouth Zithromax. ID evaluation appreciated. 3. Chronic heroin abuse; complete drug abuse cessation is strongly advised. Information given about outpatient drug rehabilitation program. office worker evaluation appreciated. 4. alcohol abuse. Complete alcohol cessation is strongly advised . Continue thiamine, folic acid, and multivitamin. 5. depression; Continue home aripiprazole, benztropine, hydroxyzine, mirtazapine. 6. History of smoking; complete smoking cessation is strongly advised. Currently on NicoDerm patch. Patient is willing to go to outpatient rehabilitation. Case discussed with pediatric social worker in detail. Outpatient rehabilitation information given. Prognosis is poor secondary to continuous alcohol, drug abuse and noncompliance with follow-up. Patient will follow-up with PMD .
== END 2018-07-16 16:05 | disposition home or self-care (01) | DRG 88 ==
LOC: ED 13:57 → ERH 21:52 → 3RNO 23:27 → OBSVTOIN 07-14 16:20 → 3RNO 07-15 21:38
PROVIDERS: ADMIT Internal Medicine; ATTEND Internal Medicine
PROC: 3E0F7GC Introduction of Other Therapeutic Substance into Respiratory Tract, Via Natural or Artificial Opening (ICD-10-PCS; principal; 2018-07-14)
DX: J44.1 Chronic obstructive pulmonary disease with (acute) exacerbation (principal); J18.1 Lobar pneumonia, unspecified organism; F11.10 Opioid abuse, uncomplicated; F10.239 Alcohol dependence with withdrawal, unspecified; J44.0 Chronic obstructive pulmonary disease with (acute) lower respiratory infection; E11.9 Type 2 diabetes mellitus without complications; I10 Essential (primary) hypertension; E78.5 Hyperlipidemia, unspecified; F17.210 Nicotine dependence, cigarettes, uncomplicated; F31.9 Bipolar disorder, unspecified; Y95 Nosocomial condition; Z88.0 Allergy status to penicillin; Z91.19 Patient's noncompliance with other medical treatment and regimen

== ENCOUNTER 2018-07-21 16:04 | Emergency (ER) | payer MEDICAID ==
[2018-07-21 16:04] VITALS: BMI 22.3
[2018-07-21 16:31] VITALS: TEMP 98.2
[2018-07-21] MEDS ORDERED: Naloxone 0.4 mg/ml Inj (Adult) IM STA (16:40)
[2018-07-21 17:05] LABS: BASO # 0.03 K/mm3 (0.0-2.0); BASO % 0.3 % (0.0-3.0); EOS # 0.3 (0.0-0.7); EOS % 3.2 % (1.5-5.0); HEMOGLOBIN 15.4 g/dL (12.0-16.0); LYMPH # 1.6 (1.2-3.4); MEAN CELL VOLUME 92.3 fl (80.0-105.0); MEAN CORPUSCULAR HEMOGLOBIN 30.4 pg (25.0-35.0); MEAN PLATELET VOLUME 9.9 fl (7.0-11.0); MONO # 0.3 (0.1-0.6); MONO % 3.7 % (1.0-6.0); RBC 5.06 10^6/uL (3.5-6.1); RED CELL DISTRIBUTION WIDTH 13.4 % (11.5-14.5); WHITE BLOOD COUNT 9.3 10^3/uL (4.5-11.0)
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
[2018-07-21 17:17] LABS: ACETAMINOPHEN < 10.0 ug/ml (10.0-20.0); ALB/GLOB RATIO 1.2 (1.1-1.8); ALBUMIN 4.4 g/dL (3.0-4.8); ALT/SGPT 30 U/L (7-56); AST/SGOT 42 U/L (14-36); BLOOD UREA NITROGEN 30 mg/dL (7-21); GFR NON-AFRICAN AMERICAN 56; SALICYLATE < 1 mg/dL (2.0-20.0)
[2018-07-21 18:20] LABS: URINE BILIRUBIN NEGATIVE (NEGATIVE); URINE BLOOD NEGATIVE (NEGATIVE); URINE GLUCOSE (UA) NEGATIVE (NEGATIVE); URINE LEUKOCYTE ESTERASE NEGATIVE Leu/uL (NEGATIVE); URINE PROTEIN TRACE mg/dL (<30 mg/dL); URINE UROBILINOGEN 0.2 E.U./dL (<1 E.U./dL)
[2018-07-21 18:26] LABS: URINE APPEARANCE CLEAR (CLEAR); URINE COLOR YELLOW (YELLOW)
[2018-07-21 18:52] LABS: BARBITURATES, UR NEGATIVE (NEGATIVE); BENZODIAZEPINES, UR NEGATIVE (NEGATIVE)
[2018-07-21 19:06] LABS: OPIATES, UR POSITIVE (NEGATIVE); PHENCYCLIDINE, UR NEGATIVE (NEGATIVE)
[2018-07-21 20:03] VITALS: BP 147/89; PULSE 108; RESP 17; O2SAT 95
--- NOTE | 2018-07-22 08:10 | CT ---
Date of service: 07/21/2018 PROCEDURE: CT HEAD WITHOUT CONTRAST. HISTORY: ams COMPARISON: 06/28/2018 TECHNIQUE: Axial computed tomography images were obtained through the head/brain without intravenous contrast. Radiation dose: Total exam DLP = 862.68 mGy-cm. This CT exam was performed using one or more of the following dose reduction techniques: Automated exposure control, adjustment of the mA and/or kV according to patient size, and/or use of iterative reconstruction technique. FINDINGS: HEMORRHAGE: No intracranial hemorrhage. BRAIN: No mass effect or edema. Small chronic appearing lacunar infarcts are seen in the globus pallidus bilaterally. VENTRICLES: Unremarkable. No hydrocephalus. CALVARIUM: Unremarkable. PARANASAL SINUSES: Unremarkable as visualized. No significant inflammatory changes. MASTOID AIR CELLS: Unremarkable as visualized. No inflammatory changes. OTHER FINDINGS: The report concurs with the preliminary [facility] report IMPRESSION: No acute intracranial abnormality
--- NOTE | 2018-07-22 08:16 | RAD ---
Date of service: 07/21/2018 HISTORY: chaim COMPARISON: 07/13/2018 FINDINGS: LUNGS: No active pulmonary disease. PLEURA: No significant pleural effusion identified, no pneumothorax apparent. CARDIOVASCULAR: No aortic atherosclerotic calcification present. Mild aortic tortuosity Normal cardiac size. No pulmonary vascular congestion. OSSEOUS STRUCTURES: No significant abnormalities. VISUALIZED UPPER ABDOMEN: Normal. OTHER FINDINGS: None. IMPRESSION: No active disease.
== END 2018-07-21 21:10 | disposition home or self-care (01) ==
LOC: ED 16:04
DX: F19.10 Other psychoactive substance abuse, uncomplicated (principal); I10 Essential (primary) hypertension; J44.9 Chronic obstructive pulmonary disease, unspecified
CPT/HCPCS: 70450; 71045; 80053; 80320; 80324; 80329; 80345; 80346; 80349; 80353; 80358; 80361; 81001; 83735; 83992; 85025; 96372; 99283; J2310

== ENCOUNTER 2018-07-30 09:47 | Inpatient (IN) | payer MEDICAID | END 2018-08-05 15:36 | disposition home or self-care (01) | LOC: ED 09:47 → ERH 13:06 → PSYC 14:03 ==

== ENCOUNTER 2018-08-05 17:32 | Emergency (ER) | payer MEDICAID ==
[2018-08-05 17:34] VITALS: BMI 22.3
[2018-08-05 17:44] VITALS: TEMP 98.4
[2018-08-05] MEDS ORDERED: Sodium Chloride 0.9% 500 ML IV STA (17:57)
--- NOTE | 2018-08-05 18:58 | ED PDOC ---
Arrival/HPI - General Chief Complaint: Anxiety Time Seen by Provider: 08/05/18 17:39 Historian: Patient - History of Present Illness Narrative History of Present Illness (Text): 08/05/18 19:02 62-year-old female with a history of COPD heroin abuse anxiety and depression presents today complaining of feeling extremely anxious. Patient states she was just discharged today and was feeling okay when she went home and then suddenly started to feel extremely anxious and shaky. Patient states she has not used heroin since July 21. She denies chest pain or shortness of breath. She denies abdominal pain. No nausea vomiting diarrhea or constipation no dizziness or weakness. She denies suicidal or homicidal ideations. No other complaints. Past Medical History - Provider Review Nursing Documentation Reviewed: Yes - Travel History Have you recently traveled outside [place] w/in the past 3 mons?: No - Past History Past History: No Previous - Infectious Disease Hx of Infectious Diseases: None - Tetanus Immunization Tetanus Immunization: Unknown - Cardiac Hx Cardiac Disorders: Yes Hx Hypertension: Yes - Pulmonary Hx Respiratory Disorders: Yes Hx Chronic Obstructive Pulmonary Disease (COPD): Yes - Neurological Hx Neurological Disorder: Yes Hx Seizures: Yes - HEENT Hx HEENT Disorder: Yes (blurred vision) - Renal Hx Renal Disorder: No - Endocrine/Metabolic Hx Endocrine Disorders: Yes Hx Hyperthyroidism: Yes - Hematological/Oncological Hx Blood Disorders: No - Integumentary Hx Dermatological Disorder: No - Musculoskeletal/Rheumatological Hx Musculoskeletal Disorders: No - Gastrointestinal Hx Gastrointestinal Disorders: Yes (APPENDICITIS WITH PERITONITIS-APPENDECTOMY) - Genitourinary/Gynecological Hx Genitourinary Disorders: Yes Hx Urinary Tract Infection: Yes - Psychiatric Hx Psychophysiologic Disorder: Yes Hx Anxiety: Yes Hx Depression: Yes Hx Substance Use: Yes (HEROIN) - Surgical History Hx Appendectomy: Yes - Anesthesia Hx Anesthesia: Yes Hx Anesthesia Reactions: No Hx Malignant Hyperthermia: No Family/Social History - Physician Review Nursing Documentation Reviewed: Yes Family/Social History: Unknown Family HX Smoking Status: Current Some Days Smoker Hx Alcohol Use: No Hx Substance Use: Yes (HEROIN) Substance used: heroin Allergies/Home Meds Allergies/Adverse Reactions: Allergies sulfur Allergy (Intermediate, Uncoded 08/05/18 17:35) RASH Review of Systems - Review of Systems Constitutional: absent: Fatigue, Fevers Respiratory: absent: SOB, Cough Cardiovascular: absent: Chest Pain, Palpitations Gastrointestinal: absent: Abdominal Pain, Nausea, Vomiting Genitourinary Female: absent: Dysuria Musculoskeletal: absent: Arthralgias Skin: absent: Rash, Pruritis Neurological: absent: Headache, Dizziness Psychiatric: Anxiety, Depression. absent: Suicidal Ideation Physical Exam Vital Signs Reviewed: Yes Vital Signs Temp Pulse Resp BP Pulse Ox 08/05/18 17:39 98.4 F 112 H 17 137/80 96 Temperature: Afebrile Blood Pressure: Normal Pulse: Tachycardic Respiratory Rate: Normal Appearance: Positive for: Well-Appearing, Non-Toxic, Comfortable Pain Distress: None Mental Status: Positive for: Alert and Oriented X 3, other (anxious) - Systems Exam Head: Present: Atraumatic Mouth: Present: Moist Mucous Membranes Neck: Present: Normal Range of Motion Respiratory/Chest: Present: Clear to Auscultation, Good Air Exchange. No: Respiratory Distress, Accessory Muscle Use Cardiovascular: Present: Regular Rate and Rhythm, Normal S1, S2. No: Murmurs Abdomen: No: Tenderness, Rebound, Guarding Upper Extremity: Present: Normal ROM Lower Extremity: Present: Normal ROM Neurological: Present: GCS=15, Speech Normal, Motor Func Grossly Intact, Normal Cerebellar Funct Skin: Present: Warm, Dry, Normal Color. No: Rashes Psychiatric: Present: Alert, Oriented x 3 Medical Decision Making ED Course and Treatment: 08/05/18 19:07 Patient is nontoxic well-appearing in no distress vital signs are stable. CBC WNL CMP WNL Tylenol WNL Salicylate WNL Alcohol level WNL Urine drug screen wnl UA; wnl cxr: wnl ekg sinus tachycardia at 103 bpm normal axis no ST elevations QTC 474 pt is medically cleared for PES evaluation Patient was seen and evaluated by PES screener: alok Patient was cleared psychiatrically for discharge. Patient reassessment: Patient is feeling better after medications vitals are stable. Patient is ready to go home. Patient denies suicidal or homicidal ideation. Impression; anxiety, UTI continue to take your medications as prescribed [facility]-up with the [facility] within the next 2 days Take Macrobid twice daily times 7 days for urinary tract infection Follow-up with a primary care physician within the next 2 days Return immediately if symptoms worsen persist or if new concerning symptoms develop Reassessment Condition: Re-examined, Improved - RAD Interpretation Radiology Orders: 08/05/18 17:57 CHEST PORTABLE [RAD] Stat - Medication Orders Current Medication Orders: Discontinued Medications Sodium Chloride (Sodium Chloride 0.9%) 500 mls @ 999 mls/hr IV .Q31M STA Stop: 08/05/18 18:27 Disposition/Present on Arrival - Present on Arrival Any Indicators Present on Arrival: No History of DVT/PE: No History of Uncontrolled Diabetes: No Urinary Catheter: No History of Decub. Ulcer: No History Surgical Site Infection Following: None - Disposition Have Diagnosis and Disposition been Completed?: Yes Diagnosis: Anxiety, Urinary tract infection Disposition: HOME/ ROUTINE Disposition Time: 21:21 Patient Plan: Discharge Condition: GOOD Discharge Instructions (ExitCare): Urinary Tract Infection, Adult (DC), Anxiety, Adult (DC) Additional Instructions: continue to take your medications as prescribed Follow-up with the mental Health Center within the next 2 days Take Macrobid twice daily times 7 days for urinary tract infection Follow-up with a primary care physician within the next 2 days Return immediately if symptoms worsen persist or if new concerning symptoms develop Prescriptions: Nitrofurantoin Macrocrystals [Macrobid] 100 mg PO BID #20 cap Referrals: Rex Bolanos MD [Primary Care Provider] - [facility] [[facility]] - Follow up with primary Forms: [employer] ([employer]), WORK NOTE
--- NOTE | 2018-08-05 19:01 | RAD ---
Date of service: 08/05/2018 HISTORY: anxiety COMPARISON: 07/30/2018. FINDINGS: LUNGS: No active pulmonary disease. PLEURA: No significant pleural effusion identified, no pneumothorax apparent. CARDIOVASCULAR: No atherosclerotic calcification present Normal. OSSEOUS STRUCTURES: No significant abnormalities. VISUALIZED UPPER ABDOMEN: Normal. OTHER FINDINGS: None. IMPRESSION: No active disease. No significant interval change compared to the prior examination(s).
[2018-08-05 19:13] LABS: BASO # 0.02 K/mm3 (0.0-2.0); BASO % 0.2 % (0.0-3.0); EOS # 0.1 (0.0-0.7); EOS % 1.1 % (1.5-5.0); HEMOGLOBIN 13.8 g/dL (12.0-16.0); LYMPH # 1.9 (1.2-3.4); LYMPH % 21.8 % (22.0-35.0); MEAN CELL VOLUME 88.5 fl (80.0-105.0); MEAN CORPUSCULAR HEMOGLOBIN 30.4 pg (25.0-35.0); MEAN CORPUSCULAR HGB CONC 34.3 g/dl (31.0-37.0); MEAN PLATELET VOLUME 10.2 fl (7.0-11.0); MONO # 0.5 (0.1-0.6); MONO % 5.5 % (1.0-6.0); RBC 4.54 10^6/uL (3.5-6.1); RED CELL DISTRIBUTION WIDTH 12.9 % (11.5-14.5); WHITE BLOOD COUNT 8.8 10^3/uL (4.5-11.0)
[2018-08-05 19:21] LABS: ACETAMINOPHEN < 10.0 ug/ml (10.0-20.0); SALICYLATE < 1 mg/dL (2.0-20.0)
[2018-08-05 19:26] LABS: ALB/GLOB RATIO 1.4 (1.1-1.8); ALBUMIN 4.2 g/dL (3.0-4.8); ALT/SGPT 24 U/L (7-56); AST/SGOT 29 U/L (14-36); BLOOD UREA NITROGEN 11 mg/dL (7-21); CALCIUM 9.9 mg/dL (8.4-10.5); GFR NON-AFRICAN AMERICAN > 60
[2018-08-05 19:33] LABS: TROPONIN I < 0.01 ng/mL
[2018-08-05 20:40] LABS: URINE BILIRUBIN NEGATIVE (NEGATIVE); URINE BLOOD NEGATIVE (NEGATIVE); URINE GLUCOSE (UA) NEGATIVE (NEGATIVE); URINE LEUKOCYTE ESTERASE TRACE Leu/uL (NEGATIVE); URINE PROTEIN NEGATIVE mg/dL (<30 mg/dL); URINE UROBILINOGEN 0.2 E.U./dL (<1 E.U./dL)
[2018-08-05 20:42] LABS: URINE APPEARANCE CLEAR (CLEAR)
[2018-08-05 20:45] VITALS: BP 105/75; PULSE 75; RESP 18; O2SAT 97
[2018-08-05 20:53] LABS: BARBITURATES, UR NEGATIVE (NEGATIVE); BENZODIAZEPINES, UR NEGATIVE (NEGATIVE); OPIATES, UR NEGATIVE (NEGATIVE); PHENCYCLIDINE, UR NEGATIVE (NEGATIVE)
--- NOTE | 2018-08-06 08:13 | CARD ---
APPROVED REPORT Date of service: 08/05/2018 EKG Measurement Heart [id number] <Conclusion> Sinus tachycardia Possible Left atrial enlargement Borderline ECG
== END 2018-08-05 21:56 | disposition home or self-care (01) ==
LOC: ED 17:32
DX: F41.9 Anxiety disorder, unspecified (principal); N39.0 Urinary tract infection, site not specified; I10 Essential (primary) hypertension; J44.9 Chronic obstructive pulmonary disease, unspecified
CPT/HCPCS: 71045; 80053; 80320; 80324; 80329; 80345; 80346; 80349; 80353; 80358; 80361; 81001; 82550; 83615; 83992; 84484; 85025; 87086; 90791; 93005; 99283; J7040

== ENCOUNTER 2018-08-08 17:43 | Inpatient (IN) | payer MEDICAID ==
[2018-08-08 17:43] VITALS: BMI 21.4
--- NOTE | 2018-08-08 19:02 | ED PDOC ---
Arrival/HPI - General Chief Complaint: Psychiatric Evaluation Time Seen by Provider: 08/08/18 18:46 Historian: Patient - History of Present Illness Narrative History of Present Illness (Text): 08/08/18 19:00 62-year-old female with past medical history of anxiety, depression, COPD, presents for psych evaluation. Patient states that she feels confused and disoriented, states that she has difficulty taking her medications. States that she was recently admitted here in this hospital for psychiatric reasons, since she had left the hospital she has not followed up with any outpatient psychiatrist. Otherwise patient reports no fever, chills, headache, dizziness, chest pain, shortness of breath, abdominal pain, nausea, vomiting, SI, HI. Past Medical History - Past History Past History: No Previous - Infectious Disease Hx of Infectious Diseases: None - Tetanus Immunization Tetanus Immunization: Unknown - Reproductive Menopause: Yes - Cardiac Hx Cardiac Disorders: Yes Hx Hypertension: Yes - Pulmonary Hx Respiratory Disorders: Yes Hx Chronic Obstructive Pulmonary Disease (COPD): Yes - Neurological Hx Neurological Disorder: Yes Hx Seizures: Yes - HEENT Hx HEENT Disorder: Yes (blurred vision) - Renal Hx Renal Disorder: No - Endocrine/Metabolic Hx Endocrine Disorders: Yes Hx Hyperthyroidism: Yes - Hematological/Oncological Hx Blood Disorders: No - Integumentary Hx Dermatological Disorder: No - Musculoskeletal/Rheumatological Hx Musculoskeletal Disorders: No - Gastrointestinal Hx Gastrointestinal Disorders: Yes (APPENDICITIS WITH PERITONITIS-APPENDECTOMY) - Genitourinary/Gynecological Hx Genitourinary Disorders: Yes Hx Urinary Tract Infection: Yes - Psychiatric Hx Psychophysiologic Disorder: Yes Hx Anxiety: Yes Hx Depression: Yes Hx Substance Use: Yes (HEROIN) - Surgical History Hx Appendectomy: Yes - Anesthesia Hx Anesthesia: Yes Hx Anesthesia Reactions: No Hx Malignant Hyperthermia: No Family/Social History Family/Social History: No Known Family HX Smoking Status: Current Some Days Smoker Hx Alcohol Use: No Hx Substance Use: Yes (HEROIN) Substance used: heroin Allergies/Home Meds Allergies/Adverse Reactions: Allergies sulfur Allergy (Intermediate, Uncoded 08/07/18 10:50) RASH Home Medications: Home Meds Medication Instructions Recorded Confirmed Benztropine [Benztropine Mesylate] 1 mg PO BID 08/08/18 08/08/18 Mirtazapine [Remeron Soltab] 45 mg PO HS 08/08/18 08/08/18 Zolpidem [Ambien] 10 mg PO HS 08/08/18 08/08/18 Review of Systems - Review of Systems Constitutional: absent: Fatigue, Fevers Respiratory: absent: SOB, Cough Cardiovascular: absent: Chest Pain, Palpitations Gastrointestinal: absent: Abdominal Pain, Diarrhea, Vomiting Genitourinary Female: absent: Dysuria, Frequency, Hematuria Musculoskeletal: absent: Arthralgias, Back Pain, Neck Pain Skin: absent: Rash, Skin Lesions Neurological: absent: Headache, Dizziness Psychiatric: Anxiety (+h/o anxiety), Depression (+h/o depression). absent: Suicidal Ideation Physical Exam Vital Signs Temp Pulse Resp BP Pulse Ox 08/08/18 18:01 98.8 F 101 H 20 117/80 97 Temperature: Afebrile Blood Pressure: Normal Pulse: Regular Respiratory Rate: Normal Appearance: Positive for: Well-Appearing, Non-Toxic, Comfortable Pain Distress: None Mental Status: Positive for: Alert and Oriented X 3 (patient is answering questions appropriately). No: Confused - Systems Exam Head: Present: Atraumatic, Normocephalic Pupils: Present: PERRL Extroacular Muscles: Present: EOMI Conjunctiva: Present: Normal Mouth: Present: Moist Mucous Membranes Neck: Present: Normal Range of Motion Respiratory/Chest: Present: Clear to Auscultation, Good Air Exchange. No: Respiratory Distress, Accessory Muscle Use Cardiovascular: Present: Regular Rate and Rhythm, Normal S1, S2. No: Murmurs Abdomen: No: Tenderness, Distention, Peritoneal Signs Back: Present: Normal Inspection Upper Extremity: Present: Normal Inspection. No: Cyanosis, Edema Lower Extremity: Present: Normal Inspection. No: Edema Neurological: Present: GCS=15, CN II-XII Intact, Speech Normal, Motor Func Grossly Intact, Normal Sensory Function Skin: Present: Warm, Dry, Normal Color. No: Rashes Psychiatric: Present: Alert, Oriented x 3, Normal Insight, Normal Concentration, Other (+flat affect) Medical Decision Making ED Course and Treatment: 08/08/18 18:58 Plan : - Labs - UA - EKG - CXR - Reassess / disposition - PES evaluation CXR : NAD. EKG: NSR at 94 bpm, (-) acute ST changes, as read by PA. Labs reviewed : UA+UTI, UDS +benzos. Patient given macrobid po for UTI. Patient medically cleared for crisis evaluation. Patient seen and evaluated by crisis, as per crisis patient will need inpatient psychiatric admission. - RAD Interpretation Radiology Orders: 08/08/18 18:53 CHEST PORTABLE [RAD] Stat - PA / RE RECORDING MIXER / Resident Statement MD/DO has reviewed & agrees with the documentation as recorded. Disposition/Present on Arrival - Present on Arrival Any Indicators Present on Arrival: No History of DVT/PE: No History of Uncontrolled Diabetes: No Urinary Catheter: No History of Decub. Ulcer: No History Surgical Site Infection Following: None - Disposition Have Diagnosis and Disposition been Completed?: Yes Diagnosis: Depression Disposition: HOSPITALIZED Disposition Time: 20:10 Patient Plan: Admission Condition: STABLE
[2018-08-08 19:12] LABS: BASO # 0.02 K/mm3 (0.0-2.0); BASO % 0.2 % (0.0-3.0); EOS # 0.3 (0.0-0.7); EOS % 2.7 % (1.5-5.0); HEMOGLOBIN 13.4 g/dL (12.0-16.0); LYMPH # 1.7 (1.2-3.4); LYMPH % 18.4 % (22.0-35.0); MEAN CELL VOLUME 89.6 fl (80.0-105.0); MEAN CORPUSCULAR HEMOGLOBIN 29.7 pg (25.0-35.0); MEAN CORPUSCULAR HGB CONC 33.2 g/dl (31.0-37.0); MEAN PLATELET VOLUME 10.4 fl (7.0-11.0); MONO # 0.4 (0.1-0.6); MONO % 3.7 % (1.0-6.0); PH,URINE 5.5 (4.7-8.0); RBC 4.51 10^6/uL (3.5-6.1); RED CELL DISTRIBUTION WIDTH 13.3 % (11.5-14.5); URINE BILIRUBIN NEGATIVE (NEGATIVE); URINE BLOOD NEGATIVE (NEGATIVE); URINE GLUCOSE (UA) 100 mg/dL (NEGATIVE); URINE LEUKOCYTE ESTERASE NEGATIVE Leu/uL (NEGATIVE); URINE PROTEIN TRACE mg/dL (<30 mg/dL); WHITE BLOOD COUNT 9.4 10^3/uL (4.5-11.0)
[2018-08-08 19:13] LABS: URINE APPEARANCE CLEAR (CLEAR); URINE COLOR AMBER (YELLOW)
[2018-08-08 19:15] LABS: URINE BACTERIA SMALL /hpf
[2018-08-08 19:43] LABS: ALB/GLOB RATIO 1.4 (1.1-1.8); ALBUMIN 4.2 g/dL (3.0-4.8); ALT/SGPT 25 U/L (7-56); AST/SGOT 40 U/L (14-36); BARBITURATES, UR NEGATIVE (NEGATIVE); BENZODIAZEPINES, UR POSITIVE (NEGATIVE); BLOOD UREA NITROGEN 13 mg/dL (7-21); CALCIUM 9.8 mg/dL (8.4-10.5); GFR NON-AFRICAN AMERICAN > 60; OPIATES, UR NEGATIVE (NEGATIVE); PHENCYCLIDINE, UR NEGATIVE (NEGATIVE)
[2018-08-08] MEDS ORDERED: Alum-Mag Hydrox-Simethicone Susp (30 mL) PO PRN (23:23)
[2018-08-08] MEDS ORDERED: Magnesium Hydroxide Susp 30 ml UD PO PRN (23:23)
--- NOTE | 2018-08-09 06:31 | PCM.BM ---
<Varghese Campo O - Last Filed: 08/09/18 06:29> Treatment Plan Problems - Problems identified on initial assessmt Anxiety Date Initiated: 08/08/18 Time Initiated: 22:00 Assessment reference: NA Status: Active Priority: 1 Altered thought process Date Initiated: 08/08/18 Time Initiated: 22:00 Assessment reference: NA Status: Active Priority: 2 Treatment assets and liabiliti Patient Assests: cooperative, motivated, ADL independent, negotiates basic needs, good interpersonal skills Patient Liabilities: poor support system - Milieu Protocol Maintain good personal hygiene: daily Encourage regular showers, daily Remind patient to perform daily oral care, daily Assist patient to perform ADL's Conduct patient checks and document Observation sheet: Q15 minutes Maintain personal safety: daily Educate patient to report safety concerns to staff, daily Monitor environment for contraband/sharps Medication safety: Monitor for expected outcome, potential side effects: daily, Assess barriers to learning: daily, Assess readiness for medication education: daily Milieu Narrative: * group, milieu and supportive tx * Restart discharge medications including: * Cogentin 1 mg PO BID * Vistaril 50 mg PO BID * Remeron 45 mg PO HS * Nicotine 21 mg/24 hr * Seroquel 50 mg PO HS * Ambien 10 mg PO HS * Vitals reviewed and noted below: * Awaiting medical f/u Admission labs and studies noted below CXR : NAD. EKG: NSR at 94 bpm, (-) acute ST changes, as read by PA. Patient given macrobid po for UTI. Family Contact Family involvement: Family/SO is involved Family contact: Patient agrees to contact Discharge/Continuing Care - Education Needs Education Needs: Patient Medication, Patient Coping Skills - Discharge Discharge Criteria: Ability to care for self - Treatment Team Participation Patient/Family/SO Statement: * group, milieu and supportive tx * Restart discharge medications including: * Cogentin 1 mg PO BID * Vistaril 50 mg PO BID * Remeron 45 mg PO HS * Nicotine 21 mg/24 hr * Seroquel 50 mg PO HS * Ambien 10 mg PO HS * Vitals reviewed and noted below: * Awaiting medical f/u Admission labs and studies noted below CXR : NAD. EKG: NSR at 94 bpm, (-) acute ST changes, as read by PA. Patient given macrobid po for UTI. <Clark,Zdena - Last Filed: 08/09/18 09:23> - Diagnosis (1) Depression Status: Acute Interventions: 08/09/18 09:23 * group, milieu and supportive tx * Restart discharge medications including: * Cogentin 1 mg PO BID * Vistaril 50 mg PO BID * Remeron 45 mg PO HS * Nicotine 21 mg/24 hr * Seroquel 50 mg PO HS * Ambien 10 mg PO HS (2) Anxiety Status: Chronic Interventions: 08/09/18 09:23 * group, milieu and supportive tx * Restart discharge medications including: * Cogentin 1 mg PO BID * Vistaril 50 mg PO BID * Remeron 45 mg PO HS * Nicotine 21 mg/24 hr * Seroquel 50 mg PO HS * Ambien 10 mg PO HS
[2018-08-09 08:22] LABS: GLUCOSE,FASTING 81 mg/dL (65-110); HDL CHOLESTEROL 43 mg/dL (29-60)
[2018-08-09 08:33] LABS: LDL CHOLESTEROL 61 mg/dL (0-129)
--- NOTE | 2018-08-09 08:58 | RAD ---
HISTORY: psych COMPARISON: Chest x-ray 08/05/18 TECHNIQUE: Chest, one view. FINDINGS: LUNGS: No focal consolidation. Please note that chest x-ray has limited sensitivity for the detection of pulmonary masses. PLEURA: No significant pleural effusion identified. No definite pneumothorax . CARDIOVASCULAR: Heart size appears within normal limits. Atherosclerotic calcifications of the aorta. OSSEOUS STRUCTURES: Degenerative changes. Osseous demineralization. VISUALIZED UPPER ABDOMEN: Unremarkable. OTHER FINDINGS: None. IMPRESSION: No focal consolidation.
--- NOTE | 2018-08-09 09:22 | PCM.PYCHPN ---
Psychiatric Progress Note - Psychiatric Progress Note Patient seen today, length of contact: 35 min Problems Identified/Issues Discussed: Please refer to Dr. Gautam's admission note dated 07/31/18 for full assessment, patient Patient is a 62-year old female with history of MDD (major depressive disorder), single episode, severe, Anxiety and Opioid Abuse who was recently treated on this unit from 07/30/18-08/05/18. Discharge medications included: Cogentin 1 mg PO BID Vistaril 50 mg PO BID Remeron 45 mg PO HS Nicotine 21 mg/24 hr Seroquel 50 mg PO HS Ambien 10 mg PO HS She presented to our ER on 08/08/18 complaining of severe depression and uncontrolled anxiety, likely in context of noncompliance. Of note, patient returned to the ER on 08/05/18 a few hours after discharge complaining of extreme anxiety and was discharged from the ER. I reviewed recent notes. Patient was interviewed at bedside. Presentation is unkempt and mildly unfocused though she is oriented x3. Patient reports worsening depression and anxiety s/p discharge from this unit a few days ago. She needs to pause before she responding to my questioning about taking her medications. She indicates that she has been compliant with her medications however this provider has doubts. Patient denies any recent opiate use and recent UDS was only positive for benzos Patient denies any new discomfort or pain. Indicates she slept well. Affect is constricted and a little passive but overall her thought process is coherent. She denies any AVH and delusions were not elicited. She has been cooperative on the unit but not interactive. There were no behavioral issues over the weekend thus far. Diagnostic Results: MDD (major depressive disorder), single episode, severe, Anxiety Opioid Abuse Mental Status Examination - Cognitive Function Attention: WNL Concentration: Poor Association: Loose Fund of Knowledge: Poor - Mood Mood: Depressed, Anxious - Affect Affect: Constricted - Speech Speech: Appropriate - Formal Thought Process Formal Thought Process: No Impairment - Suicidal Ideation Suicidal Ideation: No - Homicidal Ideation Homicidal Ideation: No Goal/Treatment Plan - Goal/Treatment Plan Progress Toward Problem(s) and Goals/Treatment Plan: * group, milieu and supportive tx * Restart discharge medications including: * Cogentin 1 mg PO BID * Vistaril 50 mg PO BID * Remeron 45 mg PO HS * Nicotine 21 mg/24 hr * Seroquel 50 mg PO HS * Ambien 10 mg PO HS * Vitals reviewed and noted below: Selected Entries 08/08/18 08/08/18 08/08/18 18:01 19:34 20:35 Temperature 98.8 F Pulse Rate 101 H 96 H 91 H Respiratory 20 18 18 Rate Blood Pressure 117/80 113/95 H 130/85 * Awaiting medical f/u Admission labs and studies noted below CXR : NAD. EKG: NSR at 94 bpm, (-) acute ST changes, as read by PA. Patient given macrobid po for UTI. Laboratory Tests 08/08/18 08/08/18 08/08/18 19:07 19:07 19:07 WBC 9.4 RBC 4.51 Hgb 13.4 Hct 40.4 MCV 89.6 MCH 29.7 MCHC 33.2 RDW 13.3 Plt Count 299 MPV 10.4 Neut % (Auto) 75.0 H Lymph % (Auto) 18.4 L [place] % (Auto) 3.7 Eos % (Auto) 2.7 Baso % (Auto) 0.2 Lymph # (Auto) 1.7 [place] # (Auto) 0.4 Eos # (Auto) 0.3 Baso # (Auto) 0.02 Absolute Neuts (auto) 7.06 H Sodium 136 Potassium 3.5 L Chloride 106 Carbon Dioxide 20 L Anion Gap 13 BUN 13 Creatinine 0.7 Est GFR ( Amer) > 60 Est GFR (Non-Af Amer) > 60 Random Glucose 82 Fasting Glucose Calcium 9.8 Magnesium 1.7 Total Bilirubin 0.4 AST 40 H D ALT 25 Alkaline Phosphatase 101 Total Protein 7.3 Albumin 4.2 Globulin 3.1 Albumin/Globulin Ratio 1.4 Triglycerides Cholesterol LDL Cholesterol Direct HDL Cholesterol TSH 3rd Generation Urine Color Jazmyn Urine Appearance Clear Urine pH 5.5 Ur Specific [place] 1.010 Urine Protein Trace H Urine Glucose (UA) 100 H Urine Ketones Negative Urine Blood Negative Urine Nitrate Positive H Urine Bilirubin Negative Urine Urobilinogen 2.0 H Ur Leukocyte Esterase Negative Urine RBC 2 - 5 H Urine WBC 5 - 10 H Ur Epithelial Cells 6 - 8 H Urine Bacteria Small Urine Opiates Screen Urine Methadone Screen Ur Barbiturates Screen Ur Phencyclidine Scrn Ur Amphetamines Screen U Benzodiazepines Scrn U Oth Cocaine Metabols U Cannabinoids Screen Alcohol, Quantitative 08/08/18 08/08/18 08/09/18 19:07 19:07 07:30 WBC RBC Hgb Hct MCV MCH MCHC RDW Plt Count MPV Neut % (Auto) Lymph % (Auto) [place] % (Auto) Eos % (Auto) Baso % (Auto) Lymph # (Auto) [place] # (Auto) Eos # (Auto) Baso # (Auto) Absolute Neuts (auto) Sodium Potassium Chloride Carbon Dioxide Anion Gap BUN Creatinine Est GFR ( Amer) Est GFR (Non-Af Amer) Random Glucose Fasting Glucose 81 Calcium Magnesium Total Bilirubin AST ALT Alkaline Phosphatase Total Protein Albumin Globulin Albumin/Globulin Ratio Triglycerides 123 Cholesterol 129 L LDL Cholesterol Direct 61 HDL Cholesterol 43 TSH 3rd Generation Urine Color Urine Appearance Urine pH Ur Specific [place] Urine Protein Urine Glucose (UA) Urine Ketones Urine Blood Urine Nitrate Urine Bilirubin Urine Urobilinogen Ur Leukocyte Esterase Urine RBC Urine WBC Ur Epithelial Cells Urine Bacteria Urine Opiates Screen Negative Urine Methadone Screen Negative Ur Barbiturates Screen Negative Ur Phencyclidine Scrn Negative Ur Amphetamines Screen Negative U Benzodiazepines Scrn Positive H U Oth Cocaine Metabols Negative U Cannabinoids Screen Negative Alcohol, Quantitative < 10 08/09/18 07:30 WBC RBC Hgb Hct MCV MCH MCHC RDW Plt Count MPV Neut % (Auto) Lymph % (Auto) [place] % (Auto) Eos % (Auto) Baso % (Auto) Lymph # (Auto) [place] # (Auto) Eos # (Auto) Baso # (Auto) Absolute Neuts (auto) Sodium Potassium Chloride Carbon Dioxide Anion Gap BUN Creatinine Est GFR ( Amer) Est GFR (Non-Af Amer) Random Glucose Fasting Glucose Calcium Magnesium Total Bilirubin AST ALT Alkaline Phosphatase Total Protein Albumin Globulin Albumin/Globulin Ratio Triglycerides Cholesterol LDL Cholesterol Direct HDL Cholesterol TSH 3rd Generation 0.27 L Urine Color Urine Appearance Urine pH Ur Specific [place] Urine Protein Urine Glucose (UA) Urine Ketones Urine Blood Urine Nitrate Urine Bilirubin Urine Urobilinogen Ur Leukocyte Esterase Urine RBC Urine WBC Ur Epithelial Cells Urine Bacteria Urine Opiates Screen Urine Methadone Screen Ur Barbiturates Screen Ur Phencyclidine Scrn Ur Amphetamines Screen U Benzodiazepines Scrn U Oth Cocaine Metabols U Cannabinoids Screen Alcohol, Quantitative
--- NOTE | 2018-08-10 07:49 | CARD ---
APPROVED REPORT Date of service: 08/08/2018 EKG Measurement Heart [id number] <Conclusion> Normal sinus rhythm Normal ECG
--- NOTE | 2018-08-10 08:46 | PCM.PYCHPN ---
Psychiatric Progress Note - Psychiatric Progress Note Patient seen today, length of contact: 35 min Problems Identified/Issues Discussed: Please refer to Dr. Gautam's admission note dated 07/31/18 for full assessment, patient Patient is a 62-year old female with history of MDD (major depressive disorder), single episode, severe, Anxiety and Opioid Abuse who was recently treated on this unit from 07/30/18-08/05/18. Discharge medications included: Cogentin 1 mg PO BID Vistaril 50 mg PO BID Remeron 45 mg PO HS Nicotine 21 mg/24 hr Seroquel 50 mg PO HS Ambien 10 mg PO HS She presented to our ER on 08/08/18 complaining of severe depression and uncontrolled anxiety, likely in context of noncompliance. Of note, patient returned to the ER on 08/05/18 a few hours after discharge complaining of extreme anxiety and was discharged from the ER. PROGRESS NOTE 08/10/18 I reviewed recent notes and patient was interviewed at bedside again. Presentation is unkempt and unfocused though she is superficially oriented x3. Patient reports worsening depression and anxiety s/p discharge from this unit a few days ago. She is still depressed today and reports that she didn't sleep very well. Affect is constricted and passive. She wasn't able to remember that she took a sleep aid last night when I asked. Memory and overall organization are impaired. Patient denies any new discomfort or pain. She denies any AVH and delusions were not elicited. She has been cooperative on the unit but not interactive. There were no behavioral issues over the weekend thus far. Diagnostic Results: MDD (major depressive disorder), single episode, severe, Anxiety Opioid Abuse Medication Change: Yes (Seroquel increased) Medical Record Reviewed: Yes Mental Status Examination - Cognitive Function Orientation: Person, Place Memory: Impaired Attention: Poor Concentration: Poor Association: Loose Fund of Knowledge: Poor - Mood Mood: Depressed, Anxious - Affect Affect: Constricted - Speech Speech: Appropriate - Formal Thought Process Formal Thought Process: No Impairment, Loosening of associations - Suicidal Ideation Suicidal Ideation: No - Homicidal Ideation Homicidal Ideation: No Goal/Treatment Plan - Goal/Treatment Plan Progress Toward Problem(s) and Goals/Treatment Plan: * group, milieu and supportive tx * Continue discharge psychiatric medications including: * Cogentin 1 mg PO BID * Vistaril 50 mg PO BID * Remeron 45 mg PO HS * Nicotine 21 mg/24 hr * Ambien 10 mg PO HS * Seroquel 50 mg PO HS was increased to Seroquel 75 mg po HS on 08/10/18 to help with organization and sleep * Vitals reviewed and noted below: Selected Entries 08/08/18 08/08/18 08/08/18 18:01 19:34 20:35 Temperature 98.8 F Pulse Rate 101 H 96 H 91 H Respiratory 20 18 18 Rate Blood Pressure 117/80 113/95 H 130/85 08/09/18 16:00 Temperature Pulse Rate 80 Respiratory Rate Blood Pressure 99/67 L * Awaiting medical f/u Admission labs and studies noted below CXR : NAD. EKG: NSR at 94 bpm, (-) acute ST changes, as read by PA. Patient given macrobid po for UTI. 08/09/18 08/09/18 08/09/18 07:30 07:30 07:30 Fasting Glucose 81 Triglycerides 123 Cholesterol 129 L LDL Cholesterol Direct 61 HDL Cholesterol 43 TSH 3rd Generation 0.27 L RPR Nonreactive Laboratory Tests 08/08/18 08/08/18 08/08/18 19:07 19:07 19:07 WBC 9.4 RBC 4.51 Hgb 13.4 Hct 40.4 MCV 89.6 MCH 29.7 MCHC 33.2 RDW 13.3 Plt Count 299 MPV 10.4 Neut % (Auto) 75.0 H Lymph % (Auto) 18.4 L [place] % (Auto) 3.7 Eos % (Auto) 2.7 Baso % (Auto) 0.2 Lymph # (Auto) 1.7 [place] # (Auto) 0.4 Eos # (Auto) 0.3 Baso # (Auto) 0.02 Absolute Neuts (auto) 7.06 H Sodium 136 Potassium 3.5 L Chloride 106 Carbon Dioxide 20 L Anion Gap 13 BUN 13 Creatinine 0.7 Est GFR ( Amer) > 60 Est GFR (Non-Af Amer) > 60 Random Glucose 82 Fasting Glucose Calcium 9.8 Magnesium 1.7 Total Bilirubin 0.4 AST 40 H D ALT 25 Alkaline Phosphatase 101 Total Protein 7.3 Albumin 4.2 Globulin 3.1 Albumin/Globulin Ratio 1.4 Triglycerides Cholesterol LDL Cholesterol Direct HDL Cholesterol TSH 3rd Generation Urine Color Jazmyn Urine Appearance Clear Urine pH 5.5 Ur Specific [place] 1.010 Urine Protein Trace H Urine Glucose (UA) 100 H Urine Ketones Negative Urine Blood Negative Urine Nitrate Positive H Urine Bilirubin Negative Urine Urobilinogen 2.0 H Ur Leukocyte Esterase Negative Urine RBC 2 - 5 H Urine WBC 5 - 10 H Ur Epithelial Cells 6 - 8 H Urine Bacteria Small Urine Opiates Screen Urine Methadone Screen Ur Barbiturates Screen Ur Phencyclidine Scrn Ur Amphetamines Screen U Benzodiazepines Scrn U Oth Cocaine Metabols U Cannabinoids Screen Alcohol, Quantitative 08/08/18 08/08/18 08/09/18 19:07 19:07 07:30 WBC RBC Hgb Hct MCV MCH MCHC RDW Plt Count MPV Neut % (Auto) Lymph % (Auto) [place] % (Auto) Eos % (Auto) Baso % (Auto) Lymph # (Auto) [place] # (Auto) Eos # (Auto) Baso # (Auto) Absolute Neuts (auto) Sodium Potassium Chloride Carbon Dioxide Anion Gap BUN Creatinine Est GFR ( Amer) Est GFR (Non-Af Amer) Random Glucose Fasting Glucose 81 Calcium Magnesium Total Bilirubin AST ALT Alkaline Phosphatase Total Protein Albumin Globulin Albumin/Globulin Ratio Triglycerides 123 Cholesterol 129 L LDL Cholesterol Direct 61 HDL Cholesterol 43 TSH 3rd Generation Urine Color Urine Appearance Urine pH Ur Specific [place] Urine Protein Urine Glucose (UA) Urine Ketones Urine Blood Urine Nitrate Urine Bilirubin Urine Urobilinogen Ur Leukocyte Esterase Urine RBC Urine WBC Ur Epithelial Cells Urine Bacteria Urine Opiates Screen Negative Urine Methadone Screen Negative Ur Barbiturates Screen Negative Ur Phencyclidine Scrn Negative Ur Amphetamines Screen Negative U Benzodiazepines Scrn Positive H U Oth Cocaine Metabols Negative U Cannabinoids Screen Negative Alcohol, Quantitative < 10 08/09/18 07:30 WBC RBC Hgb Hct MCV MCH MCHC RDW Plt Count MPV Neut % (Auto) Lymph % (Auto) [place] % (Auto) Eos % (Auto) Baso % (Auto) Lymph # (Auto) [place] # (Auto) Eos # (Auto) Baso # (Auto) Absolute Neuts (auto) Sodium Potassium Chloride Carbon Dioxide Anion Gap BUN Creatinine Est GFR ( Amer) Est GFR (Non-Af Amer) Random Glucose Fasting Glucose Calcium Magnesium Total Bilirubin AST ALT Alkaline Phosphatase Total Protein Albumin Globulin Albumin/Globulin Ratio Triglycerides Cholesterol LDL Cholesterol Direct HDL Cholesterol TSH 3rd Generation 0.27 L Urine Color Urine Appearance Urine pH Ur Specific [place] Urine Protein Urine Glucose (UA) Urine Ketones Urine Blood Urine Nitrate Urine Bilirubin Urine Urobilinogen Ur Leukocyte Esterase Urine RBC Urine WBC Ur Epithelial Cells Urine Bacteria Urine Opiates Screen Urine Methadone Screen Ur Barbiturates Screen Ur Phencyclidine Scrn Ur Amphetamines Screen U Benzodiazepines Scrn U Oth Cocaine Metabols U Cannabinoids Screen Alcohol, Quantitative
[2018-08-11] MEDS ORDERED: Albuterol-Ipratrop 3 mg / 0.5 (3 ml) UD IH PRN (14:12)
[2018-08-11] MEDS: Cholecalciferol 1,000 INTLU TAB PO SCH (15:39)
--- NOTE | 2018-08-11 15:54 | PCM.PYCHPN ---
Psychiatric Progress Note - Psychiatric Progress Note Patient seen today, length of contact: 35 min Patient Chief Complaint: "I did not know what happened, I feel very anxious, I cannot sleep, I hear voices, I cannot remember my medications, my sister is giving medications to" Problems Identified/Issues Discussed: Suicide/ homicide prevention, past psychiatric h/o, current psychiatric symptoms, medical problems, risk/benefits and alternatives of medications, medications compliance, coping strategies, substance abuse h/o, relapse prevention, importance of follow up with psychiatrist and therapist, discharge plan. Medical Problems: See HPI Diagnostic Results: 08/08/18 19:07 08/08/18 19:07 Lab Results 08/09/18 07:30: RPR Nonreactive 08/09/18 07:30: TSH 3rd Generation 0.27 L 08/09/18 07:30: Fasting Glucose 81, Triglycerides 123, Cholesterol 129 L, LDL Cholesterol Direct 61, HDL Cholesterol 43 08/08/18 19:07: Alcohol, Quantitative < 10 08/08/18 19:07: Urine Opiates Screen Negative, Urine Methadone Screen Negative, Ur Barbiturates Screen Negative, Ur Phencyclidine Scrn Negative, Ur Amphetamines Screen Negative, U Benzodiazepines Scrn Positive H, U Oth Cocaine Metabols Negative, U Cannabinoids Screen Negative 08/08/18 19:07: Sodium 136, Potassium 3.5 L, Chloride 106, Carbon Dioxide 20 L, Anion Gap 13, BUN 13, Creatinine 0.7, Est GFR ( Amer) > 60, Est GFR (Non- Af Amer) > 60, Random Glucose 82, Calcium 9.8, Magnesium 1.7, Total Bilirubin 0.4, AST 40 H D, ALT 25, Alkaline Phosphatase 101, Total Protein 7.3, Albumin 4.2, Globulin 3.1, Albumin/Globulin Ratio 1.4 08/08/18 19:07: Urine Color Jazmyn, Urine Appearance Clear, Urine pH 5.5, Ur Spec ific [place] 1.010, Urine Protein Trace H, Urine Glucose (UA) 100 H, Urine Ketones Negative, Urine Blood Negative, Urine Nitrate Positive H, Urine Bilirubin Negative, Urine Urobilinogen 2.0 H, Ur Leukocyte Esterase Negative, Urine RBC 2 - 5 H, Urine WBC 5 - 10 H, Ur Epithelial Cells 6 - 8 H, Urine Bacteria Small 08/08/18 19:07: WBC 9.4, RBC 4.51, Hgb 13.4, Hct 40.4, MCV 89.6, MCH 29.7, MCHC 33.2, RDW 13.3, Plt Count 299, MPV 10.4, Neut % (Auto) 75.0 H, Lymph % (Auto) 18.4 L, [place] % (Auto) 3.7, Eos % (Auto) 2.7, Baso % (Auto) 0.2, Lymph # (Auto) 1.7, [place] # (Auto) 0.4, Eos # (Auto) 0.3, Baso # (Auto) 0.02, Absolute Neuts (auto) 7.06 H Vital Signs Temp Pulse Resp BP Pulse Ox 08/11/18 07:00 97.2 F L 78 18 108/71 08/10/18 16:00 82 105/73 08/10/18 07:00 97.8 F 84 19 117/78 08/09/18 16:00 80 99/67 L 08/08/18 23:39 18 08/08/18 20:35 91 H 18 130/85 100 08/08/18 19:34 96 H 18 113/95 H 100 08/08/18 18:01 98.8 F 101 H 20 117/80 97 DSM 5 Symptoms Update: Shortly, patient is a 62-year old female with history of MDD (major depressive disorder), single episode, severe, Anxiety and Opioid Abuse who was recently treated on this unit from 07/30/18-08/05/18. Discharge medications included: Cogentin 1 mg PO BID Vistaril 50 mg PO BID Remeron 45 mg PO HS Nicotine 21 mg/24 hr Seroquel 50 mg PO HS Ambien 10 mg PO HS She presented to our ER on 08/08/18 complaining of severe depression and uncontrolled anxiety, likely in context of noncompliance. Of note, patient returned to the ER on 08/05/18 a few hours after discharge complaining of extreme anxiety and was discharged from the ER. PROGRESS NOTE 08/11/18 Patient was seen and examined today, patient presented to be extremely anxious, shaky, patient reported that after she left the hospital she started to feel very anxious, she was not able to memorize her medications, patient said that her sister was the one who is distributing medications to her. Memory and overall organization are impaired. We will call for neurology consultation, to rule out early signs of dementia. So far patient tolerated medications well, no side effects observed or reported, aims 0, no EPS. In regards of the medical issues, patient complaining of urinary frequency, patient was seen by medical team. Diagnostic Results: MDD (major depressive disorder), single episode, severe, Anxiety Opioid Abuse The Medication Change: Yes (Klonopin started) Medical Record Reviewed: Yes Consults ordered or reviewed: Medical consult appreciated Neurology consultation initiated Mental Status Examination - Cognitive Function Orientation: Person, Place Memory: Impaired Attention: Poor Concentration: Poor Association: Loose Fund of Knowledge: Poor - Mood Mood: Depressed, Anxious - Affect Affect: Constricted - Speech Speech: Appropriate - Formal Thought Process Formal Thought Process: No Impairment, Loosening of associations - Suicidal Ideation Suicidal Ideation: No - Homicidal Ideation Homicidal Ideation: No Goal/Treatment Plan - Goal/Treatment Plan Need for Continued Stay: Remain at risks for inpatient hospitalization, Severe depression anxiety, Discharge may exacerbated symptoms, Failed transitioning, Severe functional impairment Progress Toward Problem(s) and Goals/Treatment Plan: Milieu/structure/supportive therapy SW consultation for discharge plan and social issues Med management: Klonopin 0.5 mg twice a day for anxiety Seroquel 100 mg at the nighttime for psychosis Prozac 10 mg was started for depression and anxiety Ginseng 1 mg twice a day Family involvement Follow up on labs Will monitor closely Pt was educated about risk/benefits and alternatives of medications, coping strategies (safety plan, suicide prevention), relapse prevention, importance of follow up with psychiatrist and therapist, stay away from drugs/alcohol/smoking Estimated Date of D/C: 08/15/18
[2018-08-11 16:50] LABS: URINE BILIRUBIN NEGATIVE (NEGATIVE); URINE BLOOD NEGATIVE (NEGATIVE); URINE GLUCOSE (UA) NEGATIVE (NEGATIVE); URINE LEUKOCYTE ESTERASE NEGATIVE Leu/uL (NEGATIVE); URINE PROTEIN NEGATIVE mg/dL (<30 mg/dL); URINE UROBILINOGEN 0.2 E.U./dL (<1 E.U./dL)
[2018-08-11 16:51] LABS: URINE APPEARANCE CLEAR (CLEAR); URINE COLOR YELLOW (YELLOW)
--- NOTE | 2018-08-11 17:03 | CP.PCM.CON ---
<Josef Allen - Last Filed: 08/11/18 17:06> History of Present Illness - History of Present Illness History of Present Illness: Josef Allen DO, PGY-1 Hospitalist Consult Note for Dr. Duggan CC: worsening anxiety, psychiatric evaluation Referring Physician: Dr. Gautam HPI: Mandy is a 62 year old female with PMH of COPD, Heroin abuse, Seizures, anxiety, and depression presented to the ED requesting psychiatric evaluation. She is known to our service and has been admitted a number of times in the past on the medical floor for heroin abuse. This admission, she states she has stopped using heroin but has had worsening anxiety. UDS on admission was positive for BZDs. She admits to burning with urination and increased frequency and expressed worry that she has a UTI. She denies fever/chills, CP, SOB, nausea/vomiting, MANCINI, or blurred vision. PMD: Rex Bolanos Past Medical Hx: COPD, Heroin abuse, Seizures, anxiety, and depression Past Surgical Hx: appendectomy Allergies: PCN (rash), sulfa (rash) Home medications: Atarax 50 mg daily, Klonopin 0.5 mg BID PRN, Buspar 7.5 mg daily, requip 5 mg HS, Remeron 45 mg HS, Breo 100-25 Mcg INH daily, benztropine 1 mg BID, Lipitor 20 mg daily, Ventolin 2 puff q6h PRN, Abilify 5 mg daily Family Hx: reviewed, non-contributory Social Hx: Admits to currently smoking cigarettes approximately 1 PPD, denies EtOH use, admits to regular heroin abuse and states last use was 2 weeks ago. Pharmacy: [facility] Review of Systems - Constitutional Constitutional: absent: Chills, Fever - EENT Eyes: absent: Change in Vision - Cardiovascular Cardiovascular: absent: Chest Pain, Chest Pain with Activity, Dyspnea, Dyspnea on Exertion, Palpitations, Pedal Edema - Respiratory Respiratory: absent: Cough, Dyspnea - Gastrointestinal Gastrointestinal: absent: Abdominal Pain, Nausea, Vomiting - Genitourinary Genitourinary: Dysuria, Urinary Frequency. absent: Hematuria, Pyuria, Nocturia - Musculoskeletal Musculoskeletal: absent: Abnormal Gait, Numbness, Tingling Past Patient History - Infectious Disease Hx of Infectious Diseases: None - Tetanus Immunizations Tetanus Immunization: Unknown - Past Social History Smoking Status: Current Some Days Smoker - CARDIAC Hx Cardiac Disorders: Yes Hx Hypertension: Yes - PULMONARY Hx Respiratory Disorders: Yes Hx Chronic Obstructive Pulmonary Disease (COPD): Yes - NEUROLOGICAL Hx Neurological Disorder: Yes Hx Seizures: Yes - HEENT Hx HEENT Problems: Yes (blurred vision) - RENAL Hx Chronic Kidney Disease: No - ENDOCRINE/METABOLIC Hx Endocrine Disorders: Yes Hx Hyperthyroidism: Yes - HEMATOLOGICAL/ONCOLOGICAL Hx Blood Disorders: No - INTEGUMENTARY Hx Dermatological Problems: No - MUSCULOSKELETAL/RHEUMATOLOGICAL Hx Musculoskeletal Disorders: No - GASTROINTESTINAL Hx Gastrointestinal Disorders: Yes (APPENDICITIS WITH PERITONITIS-APPENDECTOMY) - GENITOURINARY/GYNECOLOGICAL Hx Genitourinary Disorders: Yes Hx Urinary Tract Infection: Yes - PSYCHIATRIC Hx Psychophysiologic Disorder: Yes Hx Anxiety: Yes Hx Depression: Yes Hx Substance Use: Yes (HEROIN) - SURGICAL HISTORY Hx Appendectomy: Yes - ANESTHESIA Hx Anesthesia: Yes Hx Anesthesia Reactions: No Hx Malignant Hyperthermia: No Meds Allergies/Adverse Reactions: Allergies Allergy/AdvReac Type Severity Reaction Status Date / Time sulfur Allergy Intermediate RASH Uncoded 08/07/18 10:50 - Medications Medications: Current Medications Acetaminophen (Tylenol 325mg Tab) 325 mg PO Q6H PRN PRN Reason: Pain, Mild (1-3) Al Hydrox/Mg Hydrox/Simethicone (Maalox Plus 30 Ml) 30 ml PO DAILY PRN PRN Reason: Dyspepsia Albuterol/Ipratropium (Duoneb 3 Mg/0.5 Mg (3 Ml) Ud) 3 ml IH [id number] OCCO Albuterol/Ipratropium (Duoneb 3 Mg/0.5 Mg (3 Ml) Ud) 3 ml IH [id number] PRN PRN Reason: Shortness of Breath Atorvastatin Calcium (Lipitor) 20 mg PO DIN [facility] Last Admin: 08/11/18 16:47 Dose: 20 mg Benztropine Mesylate (Cogentin) 1 mg PO BID [facility] Last Admin: 08/11/18 16:47 Dose: 1 mg Cholecalciferol (Vitamin D) 1,000 intlu PO DAILY [facility] Last Admin: 08/11/18 15:39 Dose: 1,000 intlu Clonazepam (Klonopin) 0.5 mg PO BID [facility]; Protocol Last Admin: 08/11/18 16:46 Dose: 0.5 mg Fluoxetine HCl (Prozac) 10 mg PO DAILY [facility] Hydroxyzine Pamoate (Vistaril) 50 mg PO BID [facility]; Protocol Last Admin: 08/11/18 16:46 Dose: 50 mg Magnesium Hydroxide (Milk Of Magnesia) 30 ml PO DAILY PRN PRN Reason: Constipation Mirtazapine (Remeron) 45 mg PO HS [facility] Last Admin: 08/10/18 21:16 Dose: 45 mg Nicotine (Nicoderm Cq) 1 patch TD DAILY [facility] Last Admin: 08/11/18 15:39 Dose: 1 patch Quetiapine Fumarate (Seroquel) 100 mg PO HS [facility]; Protocol Zolpidem Tartrate (Ambien) 10 mg PO HS PRN; Protocol PRN Reason: Insomnia Last Admin: 08/10/18 21:16 Dose: 10 mg Physical Exam - Constitutional Appears: Non-toxic, No Acute Distress - Head Exam Head Exam: ATRAUMATIC, NORMOCEPHALIC - Eye Exam Eye Exam: EOMI, PERRL - ENT Exam ENT Exam: Mucous Membranes Moist - Neck Exam Neck exam: Positive for: Full Rom, Normal Inspection - Respiratory Exam Respiratory Exam: Clear to Auscultation Bilateral, NORMAL BREATHING PATTERN. absent: Rales, Rhonchi, Wheezes - Cardiovascular Exam Cardiovascular Exam: REGULAR RHYTHM, RRR, +S1, +S2. absent: Diastolic murmur, Gallop, Rubs, Systolic Murmur - GI/Abdominal Exam GI & Abdominal Exam: Normal Bowel Sounds, Soft. absent: Guarding, Rebound, Tenderness - Extremities Exam Extremities exam: Positive for: full ROM, normal inspection. Negative for: pedal edema - Back Exam Back exam: NORMAL INSPECTION - Neurological Exam Neurological exam: Alert, Oriented x3 - Psychiatric Exam Psychiatric exam: Anxious - Skin Skin Exam: Dry, Intact, Warm Results - Vital Signs Recent Vital Signs: Last Vital Signs Temp 98.0 F 08/11/18 16:16 Pulse 81 08/11/18 16:16 Resp 15 08/11/18 16:16 BP 111/73 08/11/18 16:16 Pulse Ox 100 08/08/18 20:35 - Labs Result Diagrams: 08/08/18 19:07 08/08/18 19:07 Labs: Laboratory Results - last 24 hr 08/11/18 16:20 Urine Color Yellow Urine Appearance Clear Urine pH 6.0 Ur Specific [place] >= 1.030 Urine Protein Negative Urine Glucose (UA) Negative Urine Ketones Trace H Urine Blood Negative Urine Nitrate Negative Urine Bilirubin Negative Urine Urobilinogen 0.2 Ur Leukocyte Esterase Negative Assessment & Plan - Assessment and Plan (Free Text) Assessment: 62 yo F with PMH of COPD, Heroin abuse, Seizures, anxiety, and depression is admitted to psych for evaluation/treatment of anxiety and substance abuse. Plan: Dysuria/Frequency Repeat UA this admission negative May take tylenol PRN for dysuria for now Will get gonorrhea/chlamydia No need for antibiotics at this point but will f/u G/C result Substance Abuse Continue current treatment per psych May restart all home meds HLD Continue Lipitor 20 mg HS Tobacco Abuse Continue nicotine patch PRN Thank you for allowing us to participate in the care of Ms. Martinez. Please re-consult as needed. Patient seen, examined, and plan discussed with my attending Dr. Urban Allen, DEdwardoO. IM Resident PGY-1 <Marquez Duggan - Last Filed: 08/12/18 15:17> Meds - Medications Medications: Current Medications Acetaminophen (Tylenol 325mg Tab) 325 mg PO Q6H PRN PRN Reason: Pain, Mild (1-3) Al Hydrox/Mg Hydrox/Simethicone (Maalox Plus 30 Ml) 30 ml PO DAILY PRN PRN Reason: Dyspepsia Albuterol/Ipratropium (Duoneb 3 Mg/0.5 Mg (3 Ml) Ud) 3 ml IH [id number] [facility] Last Admin: 08/12/18 09:18 Dose: 3 ml Albuterol/Ipratropium (Duoneb 3 Mg/0.5 Mg (3 Ml) Ud) 3 ml IH [id number] PRN PRN Reason: Shortness of Breath Atorvastatin Calcium (Lipitor) 20 mg PO DIN [facility] Last Admin: 08/11/18 16:47 Dose: 20 mg Cholecalciferol (Vitamin D) 1,000 intlu PO DAILY [facility] Last Admin: 08/12/18 09:24 Dose: 1,000 intlu Clonazepam (Klonopin) 0.5 mg PO TID [facility]; Protocol Last Admin: 08/12/18 13:15 Dose: 0.5 mg Fluoxetine HCl (Prozac) 20 mg PO DAILY [facility] Hydroxyzine Pamoate (Vistaril) 50 mg PO BID [facility]; Protocol Last Admin: 08/12/18 09:24 Dose: 50 mg Magnesium Hydroxide (Milk Of Magnesia) 30 ml PO DAILY PRN PRN Reason: Constipation Mirtazapine (Remeron) 45 mg PO HS [facility] Last Admin: 08/11/18 21:18 Dose: 45 mg Nicotine (Nicoderm Cq) 1 patch TD DAILY [facility] Last Admin: 08/12/18 09:25 Dose: 1 patch Quetiapine Fumarate (Seroquel) 100 mg PO HS [facility]; Protocol Last Admin: 08/11/18 21:18 Dose: 100 mg Zolpidem Tartrate (Ambien) 10 mg PO HS PRN; Protocol PRN Reason: Insomnia Last Admin: 08/12/18 00:16 Dose: 10 mg Results - Vital Signs Recent Vital Signs: Last Vital Signs Temp 97.7 F 08/12/18 07:00 Pulse 67 08/12/18 07:00 Resp 20 08/12/18 07:00 BP 97/65 L 08/12/18 07:00 Pulse Ox 97 08/12/18 07:00 - Labs Result Diagrams: 08/08/18 19:07 08/08/18 19:07 Labs: Laboratory Results - last 24 hr 08/11/18 16:20 Urine Color Yellow Urine Appearance Clear Urine pH 6.0 Ur Specific [place] >= 1.030 Urine Protein Negative Urine Glucose (UA) Negative Urine Ketones Trace H Urine Blood Negative Urine Nitrate Negative Urine Bilirubin Negative Urine Urobilinogen 0.2 Ur Leukocyte Esterase Negative Attending/Attestation - Attestation I have personally seen and examined this patient.: Yes I have fully participated in the care of the patient.: Yes I have reviewed all pertinent clinical information: Yes Notes (Text): 08/12/18 15:12 Medical Consult note /attending note; Patient seen and examined with resident in psych floor. Patient is alert and awake. denies cough and shortness of breath. Ambulating without any difficulty. Tolerating diet. denies any fevers, chills. Denies any hematuria. Patient had some urinary urgency before. Patient is a 62-year-old female past medical history significant for hyper lipidemia, hypertension, type 2 diabetes, COPD, anxiety, heroin abuse, alcohol abuse, and tobacco abuse is admitted for anxiety. 1. anxiety and depression ;continue Klonopin, Prozac, Remeron and Seroquel. continue treatment as per psychiatry. 2. Chronic heroin abuse; patient stated that she recently stopped heroin abuse. 3. alcohol abuse. Complete alcohol cessation is strongly advised. 4. active smoking; complete smoking cessation is strongly advised. Currently on NicoDerm patch. 5. COPD; continue duoneb prn. Stable respiratory status now. 6. Positive UA. urine culture is negative. Repeat UA is negative. urine for CG ordered. No need for antibiotics now. Patient is medically stable. Reconsult as needed. Patient will follow-up with PMD . 08/12/18 15:17
[2018-08-11] MEDS: Albuterol-Ipratrop 3 mg / 0.5 (3 ml) UD IH SCH (23:33)
[2018-08-12 07:06] VITALS: O2SAT 97
[2018-08-12] MEDS: Albuterol-Ipratrop 3 mg / 0.5 (3 ml) UD IH SCH ×2 (09:18→20:45)
[2018-08-12] MEDS: Cholecalciferol 1,000 INTLU TAB PO SCH (09:24)
--- NOTE | 2018-08-12 16:28 | PCM.PYCHPN ---
Psychiatric Progress Note - Psychiatric Progress Note Patient seen today, length of contact: 35 min Patient Chief Complaint: "I did not know what happened, I feel very anxious, I cannot sleep, I hear voices, I cannot remember my medications, my sister is giving medications to" Problems Identified/Issues Discussed: Suicide/ homicide prevention, past psychiatric h/o, current psychiatric symptoms, medical problems, risk/benefits and alternatives of medications, medications compliance, coping strategies, substance abuse h/o, relapse prevention, importance of follow up with psychiatrist and therapist, discharge plan. Medical Problems: See HPI Diagnostic Results: 08/08/18 19:07 08/08/18 19:07 Lab Results 08/09/18 07:30: RPR Nonreactive 08/09/18 07:30: TSH 3rd Generation 0.27 L 08/09/18 07:30: Fasting Glucose 81, Triglycerides 123, Cholesterol 129 L, LDL Cholesterol Direct 61, HDL Cholesterol 43 08/08/18 19:07: Alcohol, Quantitative < 10 08/08/18 19:07: Urine Opiates Screen Negative, Urine Methadone Screen Negative, Ur Barbiturates Screen Negative, Ur Phencyclidine Scrn Negative, Ur Amphetamines Screen Negative, U Benzodiazepines Scrn Positive H, U Oth Cocaine Metabols Negative, U Cannabinoids Screen Negative 08/08/18 19:07: Sodium 136, Potassium 3.5 L, Chloride 106, Carbon Dioxide 20 L, Anion Gap 13, BUN 13, Creatinine 0.7, Est GFR ( Amer) > 60, Est GFR (Non- Af Amer) > 60, Random Glucose 82, Calcium 9.8, Magnesium 1.7, Total Bilirubin 0.4, AST 40 H D, ALT 25, Alkaline Phosphatase 101, Total Protein 7.3, Albumin 4.2, Globulin 3.1, Albumin/Globulin Ratio 1.4 08/08/18 19:07: Urine Color Jazmyn, Urine Appearance Clear, Urine pH 5.5, Ur Spec ific [place] 1.010, Urine Protein Trace H, Urine Glucose (UA) 100 H, Urine Ketones Negative, Urine Blood Negative, Urine Nitrate Positive H, Urine Bilirubin Negative, Urine Urobilinogen 2.0 H, Ur Leukocyte Esterase Negative, Urine RBC 2 - 5 H, Urine WBC 5 - 10 H, Ur Epithelial Cells 6 - 8 H, Urine Bacteria Small 08/08/18 19:07: WBC 9.4, RBC 4.51, Hgb 13.4, Hct 40.4, MCV 89.6, MCH 29.7, MCHC 33.2, RDW 13.3, Plt Count 299, MPV 10.4, Neut % (Auto) 75.0 H, Lymph % (Auto) 18.4 L, [place] % (Auto) 3.7, Eos % (Auto) 2.7, Baso % (Auto) 0.2, Lymph # (Auto) 1.7, [place] # (Auto) 0.4, Eos # (Auto) 0.3, Baso # (Auto) 0.02, Absolute Neuts (auto) 7.06 H Vital Signs Temp Pulse Resp BP Pulse Ox 08/11/18 07:00 97.2 F L 78 18 108/71 08/10/18 16:00 82 105/73 08/10/18 07:00 97.8 F 84 19 117/78 08/09/18 16:00 80 99/67 L 08/08/18 23:39 18 08/08/18 20:35 91 H 18 130/85 100 08/08/18 19:34 96 H 18 113/95 H 100 08/08/18 18:01 98.8 F 101 H 20 117/80 97 DSM 5 Symptoms Update: Shortly, patient is a 62-year old female with history of MDD (major depressive disorder), single episode, severe, Anxiety and Opioid Abuse who was recently treated on this unit from 07/30/18-08/05/18. Discharge medications included: Cogentin 1 mg PO BID Vistaril 50 mg PO BID Remeron 45 mg PO HS Nicotine 21 mg/24 hr Seroquel 50 mg PO HS Ambien 10 mg PO HS She presented to our ER on 08/08/18 complaining of severe depression and uncontrolled anxiety, likely in context of noncompliance. Of note, patient returned to the ER on 08/05/18 a few hours after discharge complaining of extreme anxiety and was discharged from the ER. PROGRESS NOTE 08/12/18 Patient was seen and examined today, patient presented to be shaky, this insurance underwriter sales asked if patient feels anxious, patient reported that her tremor is not related to her anxiety. As per collateral information from patient Sister patient never presented with tremor, tremors started about 2 weeks ago, patient has episodes of confusion and difficulty to stay focused and concentrate, "she does not remember what medications she needs to take", as per collateral information pat manfred is on B12 shot once a week, will call for neurology evaluation. Patient reported that "I am not well, I am depressed..." So far patient tolerated medications well, no side effects observed or reported, aims 0, no EPS. In regards of the medical issues, patient complaining of urinary frequency, patient was seen by medical team. Diagnostic Results: MDD (major depressive disorder), single episode, severe, Anxiety Opioid Abuse Medication Change: Yes (Klonopin increased) Medical Record Reviewed: Yes Consults ordered or reviewed: Medical consult appreciated Neurology consultation initiated Mental Status Examination - Cognitive Function Orientation: Person, Place Memory: Impaired Attention: Poor Concentration: Poor Association: Loose Fund of Knowledge: Poor - Mood Mood: Depressed, Anxious - Affect Affect: Constricted - Speech Speech: Appropriate - Formal Thought Process Formal Thought Process: No Impairment, Loosening of associations - Suicidal Ideation Suicidal Ideation: No - Homicidal Ideation Homicidal Ideation: No Goal/Treatment Plan - Goal/Treatment Plan Need for Continued Stay: Remain at risks for inpatient hospitalization, Severe depression anxiety, Discharge may exacerbated symptoms, Failed transitioning, Severe functional impairment Progress Toward Problem(s) and Goals/Treatment Plan: Milieu/structure/supportive therapy SW consultation for discharge plan and social issues Med management: Klonopin 1 mg twice a day for anxiety Seroquel 100 mg at the nighttime for psychosis Prozac 20 mg was started for depression and anxiety Ginseng 1 mg twice a day Family involvement Follow up on labs Will monitor closely Pt was educated about risk/benefits and alternatives of medications, coping strategies (safety plan, suicide prevention), relapse prevention, importance of follow up with psychiatrist and therapist, stay away from drugs/alcohol/smoking Estimated Date of D/C: 08/15/18
[2018-08-13] MEDS: Albuterol-Ipratrop 3 mg / 0.5 (3 ml) UD IH SCH ×2 (08:05→22:50)
[2018-08-13] MEDS: Cholecalciferol 1,000 INTLU TAB PO SCH (09:21)
--- NOTE | 2018-08-13 14:51 | PCM.PYCHPN ---
Psychiatric Progress Note - Psychiatric Progress Note Patient seen today, length of contact: 35 min Patient Chief Complaint: "very depressed, hopeless, I am not interested to do anything...." Problems Identified/Issues Discussed: Suicide/ homicide prevention, past psychiatric h/o, current psychiatric symptoms, medical problems, risk/benefits and alternatives of medications, medications compliance, coping strategies, substance abuse h/o, relapse prevention, importance of follow up with psychiatrist and therapist, discharge plan. Medical Problems: See HPI Diagnostic Results: 08/08/18 19:07 08/08/18 19:07 Lab Results 08/09/18 07:30: RPR Nonreactive 08/09/18 07:30: TSH 3rd Generation 0.27 L 08/09/18 07:30: Fasting Glucose 81, Triglycerides 123, Cholesterol 129 L, LDL Cholesterol Direct 61, HDL Cholesterol 43 08/08/18 19:07: Alcohol, Quantitative < 10 08/08/18 19:07: Urine Opiates Screen Negative, Urine Methadone Screen Negative, Ur Barbiturates Screen Negative, Ur Phencyclidine Scrn Negative, Ur Amphetamines Screen Negative, U Benzodiazepines Scrn Positive H, U Oth Cocaine Metabols Negative, U Cannabinoids Screen Negative 08/08/18 19:07: Sodium 136, Potassium 3.5 L, Chloride 106, Carbon Dioxide 20 L, Anion Gap 13, BUN 13, Creatinine 0.7, Est GFR ( Amer) > 60, Est GFR (Non- Af Amer) > 60, Random Glucose 82, Calcium 9.8, Magnesium 1.7, Total Bilirubin 0.4, AST 40 H D, ALT 25, Alkaline Phosphatase 101, Total Protein 7.3, Albumin 4.2, Globulin 3.1, Albumin/Globulin Ratio 1.4 08/08/18 19:07: Urine Color Jazmyn, Urine Appearance Clear, Urine pH 5.5, Ur Specific [place] 1.010, Urine Protein Trace H, Urine Glucose (UA) 100 H, Urine Ketones Negative, Urine Blood Negative, Urine Nitrate Positive H, Urine Bilirubin Negative, Urine Urobilinogen 2.0 H, Ur Leukocyte Esterase Negative, Urine RBC 2 - 5 H, Urine WBC 5 - 10 H, Ur Epithelial Cells 6 - 8 H, Urine Bacteria Small 08/08/18 19:07: WBC 9.4, RBC 4.51, Hgb 13.4, Hct 40.4, MCV 89.6, MCH 29.7, MCHC 33.2, RDW 13.3, Plt Count 299, MPV 10.4, Neut % (Auto) 75.0 H, Lymph % (Auto) 18.4 L, [place] % (Auto) 3.7, Eos % (Auto) 2.7, Baso % (Auto) 0.2, Lymph # (Auto) 1.7, [place] # (Auto) 0.4, Eos # (Auto) 0.3, Baso # (Auto) 0.02, Absolute Neuts (auto) 7.06 H Vital Signs Temp Pulse Resp BP Pulse Ox 08/11/18 07:00 97.2 F L 78 18 108/71 08/10/18 16:00 82 105/73 08/10/18 07:00 97.8 F 84 19 117/78 08/09/18 16:00 80 99/67 L 08/08/18 23:39 18 08/08/18 20:35 91 H 18 130/85 100 08/08/18 19:34 96 H 18 113/95 H 100 08/08/18 18:01 98.8 F 101 H 20 117/80 97 DSM 5 Symptoms Update: Shortly, patient is a 62-year old female with history of MDD (major depressive disorder), single episode, severe, Anxiety and Opioid Abuse who was recently treated on this unit from 07/30/18-08/05/18. She presented to our ER on 08/08/18 complaining of severe depression and uncontrolled anxiety, likely in context of noncompliance. Of note, patient returned to the ER on 08/05/18 a few hours after discharge complaining of extreme anxiety and was discharged from the ER. PROGRESS NOTE 08/13/18 Patient was seen and examined today in her room, patient presented to be less tremolos, pt said that she feels "very depressed, hopeless, I am not interested to do anything....", pt reported she feels this way for the past two weeks, pt reported that her anxiety is "little better", pt reported that she had transient feeling of hopelessness, but denied suicidal ideation/intent/plan. 08/12/18 as per collateral information from patient Sister patient never presented with tremor, tremors started about 2 weeks ago, patient has episodes of confusion and difficulty to stay focused and concentrate, "she does not remember what medications she needs to take", as per collateral information patient is on B12 shot, will call for neurology evaluation. as per staff pt was observed standing in front of her bookshelf "long hours, not moving, disengaged, confused" So far patient tolerated medications well, no side effects observed or reported, aims 0, no EPS. In regards of the medical issues, patient complaining of urinary frequency, patient was seen by medical team, no signs of UTI. Diagnostic Results: MDD (major depressive disorder), single episode, severe, Anxiety Opioid Abuse Medication Change: Yes (Klonopin increased yesterday) Medical Record Reviewed: Yes Consults ordered or reviewed: Medical consult appreciated Neurology consultation was called 08/13/18 Mental Status Examination - Cognitive Function Orientation: Person, Place Memory: Impaired Attention: Poor Concentration: Poor Association: Loose Fund of Knowledge: Poor - Mood Mood: Depressed, Anxious - Affect Affect: Constricted - Speech Speech: Appropriate - Formal Thought Process Formal Thought Process: No Impairment, Loosening of associations - Suicidal Ideation Suicidal Ideation: No - Homicidal Ideation Homicidal Ideation: No Goal/Treatment Plan - Goal/Treatment Plan Need for Continued Stay: Remain at risks for inpatient hospitalization, Severe depression anxiety, Discharge may exacerbated symptoms, Failed transitioning, Severe functional impairment Progress Toward Problem(s) and Goals/Treatment Plan: Milieu/structure/supportive therapy SW consultation for discharge plan and social issues Med management: Klonopin 1mg twice a day for anxiety Seroquel 100 mg at the nighttime for psychosis Prozac 20 mg was started for depression and anxiety remeron decreased to 30mg po hs with the plan to wean it off seroquel 100mg po hs for mood stabilization and psychosis Family involvement Follow up on labs Will monitor closely Pt was educated about risk/benefits and alternatives of medications, coping strategies (safety plan, suicide prevention), relapse prevention, importance of follow up with psychiatrist and therapist, stay away from drugs/alcohol/smoking Estimated Date of D/C: 08/18/18
[2018-08-14] MEDS: Albuterol-Ipratrop 3 mg / 0.5 (3 ml) UD IH SCH ×2 (08:42→21:20)
[2018-08-14] MEDS: Cholecalciferol 1,000 INTLU TAB PO SCH (10:18)
[2018-08-14 15:41] LABS: PH,URINE 5.5 (4.7-8.0); URINE BILIRUBIN NEGATIVE (NEGATIVE); URINE BLOOD NEGATIVE (NEGATIVE); URINE GLUCOSE (UA) NEGATIVE (NEGATIVE); URINE LEUKOCYTE ESTERASE NEGATIVE Leu/uL (NEGATIVE); URINE PROTEIN NEGATIVE mg/dL (<30 mg/dL); URINE UROBILINOGEN 0.2 E.U./dL (<1 E.U./dL)
[2018-08-14 15:42] LABS: URINE APPEARANCE CLEAR (CLEAR); URINE COLOR YELLOW (YELLOW)
--- NOTE | 2018-08-14 16:18 | PCM.PYCHPN ---
Psychiatric Progress Note - Psychiatric Progress Note Patient seen today, length of contact: 35 min Patient Chief Complaint: "I feel little better..." Problems Identified/Issues Discussed: Suicide/ homicide prevention, past psychiatric h/o, current psychiatric symptoms, medical problems, risk/benefits and alternatives of medications, medications compliance, coping strategies, substance abuse h/o, relapse prevention, importance of follow up with psychiatrist and therapist, discharge plan. Medical Problems: See HPI Diagnostic Results: 08/08/18 19:07 08/08/18 19:07 Lab Results 08/09/18 07:30: RPR Nonreactive 08/09/18 07:30: TSH 3rd Generation 0.27 L 08/09/18 07:30: Fasting Glucose 81, Triglycerides 123, Cholesterol 129 L, LDL Cholesterol Direct 61, HDL Cholesterol 43 08/08/18 19:07: Alcohol, Quantitative < 10 08/08/18 19:07: Urine Opiates Screen Negative, Urine Methadone Screen Negative, Ur Barbiturates Screen Negative, Ur Phencyclidine Scrn Negative, Ur Amphetamines Screen Negative, U Benzodiazepines Scrn Positive H, U Oth Cocaine Metabols Negative, U Cannabinoids Screen Negative 08/08/18 19:07: Sodium 136, Potassium 3.5 L, Chloride 106, Carbon Dioxide 20 L, Anion Gap 13, BUN 13, Creatinine 0.7, Est GFR ( Amer) > 60, Est GFR (Non- Af Amer) > 60, Random Glucose 82, Calcium 9.8, Magnesium 1.7, Total Bilirubin 0.4, AST 40 H D, ALT 25, Alkaline Phosphatase 101, Total Protein 7.3, Albumin 4.2, Globulin 3.1, Albumin/Globulin Ratio 1.4 08/08/18 19:07: Urine Color Jazmyn, Urine Appearance Clear, Urine pH 5.5, Ur Specific [place] 1.010, Urine Protein Trace H, Urine Glucose (UA) 100 H, Urine Ketones Negative, Urine Blood Negative, Urine Nitrate Positive H, Urine Bilir ubin Negative, Urine Urobilinogen 2.0 H, Ur Leukocyte Esterase Negative, Urine RBC 2 - 5 H, Urine WBC 5 - 10 H, Ur Epithelial Cells 6 - 8 H, Urine Bacteria Small 08/08/18 19:07: WBC 9.4, RBC 4.51, Hgb 13.4, Hct 40.4, MCV 89.6, MCH 29.7, MCHC 33.2, RDW 13.3, Plt Count 299, MPV 10.4, Neut % (Auto) 75.0 H, Lymph % (Auto) 18.4 L, [place] % (Auto) 3.7, Eos % (Auto) 2.7, Baso % (Auto) 0.2, Lymph # (Auto) 1.7, [place] # (Auto) 0.4, Eos # (Auto) 0.3, Baso # (Auto) 0.02, Absolute Neuts (auto) 7.06 H Vital Signs Temp Pulse Resp BP Pulse Ox 08/11/18 07:00 97.2 F L 78 18 108/71 08/10/18 16:00 82 105/73 08/10/18 07:00 97.8 F 84 19 117/78 08/09/18 16:00 80 99/67 L 08/08/18 23:39 18 08/08/18 20:35 91 H 18 130/85 100 08/08/18 19:34 96 H 18 113/95 H 100 08/08/18 18:01 98.8 F 101 H 20 117/80 97 DSM 5 Symptoms Update: Shortly, patient is a 62-year old female with history of MDD (major depressive disorder), single episode, severe, Anxiety and Opioid Abuse who was recently treated on this unit from 07/30/18-08/05/18. She presented to our ER on 08/08/18 complaining of severe depression and uncontrolled anxiety, likely in context of noncompliance. Of note, patient returned to the ER on 08/05/18 a few hours after discharge complaining of extreme anxiety and was discharged from the ER. PROGRESS NOTE 08/14/18 Patient was seen and examined today next to the nursing station, patient presented to be less tremolos, pt said that she feels "little better", pt reported she feels this way for the past two weeks, pt reported that her anxiety is "little better", pt reported that she had transient feeling of hopelessness, but denied suicidal ideation/intent/plan. In regards of mood memory and concentration, patient reported that she feels little better, pt was not seen by neurology, will call back if pt will have any tremor or any memory/concentration problems. 08/12/18 as per collateral information from patient Sister patient never presented with tremor, tremors started about 2 weeks ago, patient has episodes of confusion and difficulty to stay focused and concentrate, "she does not remember what medications she needs to take", as per collateral information patient is on B12 shot, discussed with medical team, B12 was started. as per staff pt is superficial, disengaged. So far patient tolerated medications well, no side effects observed or reported, aims 0, no EPS. Diagnostic Results: MDD (major depressive disorder), single episode, severe, Anxiety Opioid Abuse Medication Change: Yes (Prozac increased Remeron is PRN) Medical Record Reviewed: Yes Mental Status Examination - Cognitive Function Orientation: Person, Place Memory: Impaired Attention: Poor Concentration: Poor Association: Loose Fund of Knowledge: Poor - Mood Mood: Depressed, Anxious - Affect Affect: Constricted - Speech Speech: Appropriate - Formal Thought Process Formal Thought Process: No Impairment, Loosening of associations - Suicidal Ideation Suicidal Ideation: No - Homicidal Ideation Homicidal Ideation: No Goal/Treatment Plan - Goal/Treatment Plan Need for Continued Stay: Remain at risks for inpatient hospitalization, Severe depression anxiety, Discharge may exacerbated symptoms, Failed transitioning, Severe functional impairment Progress Toward Problem(s) and Goals/Treatment Plan: Milieu/structure/supportive therapy SW consultation for discharge plan and social issues Med management: Klonopin 1mg twice a day for anxiety Seroquel 100 mg at the nighttime for psychosis Prozac 30 mg was started for depression and anxiety remeron decreased to 15mg po hs PRN with the plan to wean it off seroquel 100mg po hs for mood stabilization and psychosis Family involvement Follow up on labs Will monitor closely Pt was educated about risk/benefits and alternatives of medications, coping strategies (safety plan, suicide prevention), relapse prevention, importance of follow up with psychiatrist and therapist, stay away from drugs/alcohol/smoking Estimated Date of D/C: 08/18/18
[2018-08-15] MEDS: Albuterol-Ipratrop 3 mg / 0.5 (3 ml) UD IH SCH ×2 (08:01→21:30)
--- NOTE | 2018-08-15 09:41 | PCM.PYCHPN ---
Psychiatric Progress Note - Psychiatric Progress Note Patient seen today, length of contact: 35 min Problems Identified/Issues Discussed: Please refer to Dr. Gautam's admission note dated 07/31/18 for full assessment, patient Patient is a 62-year old female with history of MDD (major depressive disorder), single episode, severe, Anxiety and Opioid Abuse who was recently treated on this unit from 07/30/18-08/05/18. Discharge medications included: Cogentin 1 mg PO BID Vistaril 50 mg PO BID Remeron 45 mg PO HS Nicotine 21 mg/24 hr Seroquel 50 mg PO HS Ambien 10 mg PO HS She presented to our ER on 08/08/18 complaining of severe depression and uncontrolled anxiety, likely in context of noncompliance. Of note, patient returned to the ER on 08/05/18 a few hours after discharge complaining of extreme anxiety and was discharged from the ER. PROGRESS NOTE 08/15/18 I reviewed recent notes and patient was interviewed at bedside again. She is familiar to me from prior interviews during this admission and prior admission. Presentation remains unkempt and unfocused though she is superficially oriented x3. Patient reports that she is "doing okay", her affect is flat but brighter than last weekend. She feels "more hopeful". Anxiety is "okay". Patient denies any issues with her medications and denies any new discomfort or pain. Affect is still constricted and passive but maybe a little more spontaneous and engaged than before. She has been cooperative on the unit but not interactive. There were no behavioral issues overnight. Diagnostic Results: MDD (major depressive disorder), single episode, severe, Anxiety Opioid Abuse Medication Change: No ( ) Medical Record Reviewed: Yes Mental Status Examination - Cognitive Function Orientation: Person, Place Memory: Impaired Attention: Poor Concentration: Poor Association: Loose Fund of Knowledge: Poor - Mood Mood: Depressed, Anxious - Affect Affect: Constricted - Speech Speech: Appropriate - Formal Thought Process Formal Thought Process: No Impairment, Loosening of associations - Suicidal Ideation Suicidal Ideation: No - Homicidal Ideation Homicidal Ideation: No Goal/Treatment Plan - Goal/Treatment Plan Need for Continued Stay: Remain at risks for inpatient hospitalization, Severe depression anxiety, Discharge may exacerbated symptoms, Failed transitioning, Severe functional impairment Progress Toward Problem(s) and Goals/Treatment Plan: * group, milieu and supportive tx * No new lab results noted thus far today * Vitals reviewed and noted below: Selected Entries 08/15/18 07:00 Temperature 97.2 F L Pulse Rate 76 Respiratory 18 Rate Blood Pressure 91/62 L Admission labs and studies noted below CXR : NAD. EKG: NSR at 94 bpm, (-) acute ST changes, as read by RENEE. Patient given macrobid po for UTI. 08/09/18 08/09/18 08/09/18 07:30 07:30 07:30 Fasting Glucose 81 Triglycerides 123 Cholesterol 129 L LDL Cholesterol Direct 61 HDL Cholesterol 43 TSH 3rd Generation 0.27 L RPR Nonreactive Laboratory Tests 08/08/18 08/08/18 08/08/18 19:07 19:07 19:07 WBC 9.4 RBC 4.51 Hgb 13.4 Hct 40.4 MCV 89.6 MCH 29.7 MCHC 33.2 RDW 13.3 Plt Count 299 MPV 10.4 Neut % (Auto) 75.0 H Lymph % (Auto) 18.4 L [place] % (Auto) 3.7 Eos % (Auto) 2.7 Baso % (Auto) 0.2 Lymph # (Auto) 1.7 [place] # (Auto) 0.4 Eos # (Auto) 0.3 Baso # (Auto) 0.02 Absolute Neuts (auto) 7.06 H Sodium 136 Potassium 3.5 L Chloride 106 Carbon Dioxide 20 L Anion Gap 13 BUN 13 Creatinine 0.7 Est GFR ( Amer) > 60 Est GFR (Non-Af Amer) > 60 Random Glucose 82 Fasting Glucose Calcium 9.8 Magnesium 1.7 Total Bilirubin 0.4 AST 40 H D ALT 25 Alkaline Phosphatase 101 Total Protein 7.3 Albumin 4.2 Globulin 3.1 Albumin/Globulin Ratio 1.4 Triglycerides Cholesterol LDL Cholesterol Direct HDL Cholesterol TSH 3rd Generation Urine Color Jazmyn Urine Appearance Clear Urine pH 5.5 Ur Specific [place] 1.010 Urine Protein Trace H Urine Glucose (UA) 100 H Urine Ketones Negative Urine Blood Negative Urine Nitrate Positive H Urine Bilirubin Negative Urine Urobilinogen 2.0 H Ur Leukocyte Esterase Negative Urine RBC 2 - 5 H Urine WBC 5 - 10 H Ur Epithelial Cells 6 - 8 H Urine Bacteria Small Urine Opiates Screen Urine Methadone Screen Ur Barbiturates Screen Ur Phencyclidine Scrn Ur Amphetamines Screen U Benzodiazepines Scrn U Oth Cocaine Metabols U Cannabinoids Screen Alcohol, Quantitative 08/08/18 08/08/18 08/09/18 19:07 19:07 07:30 WBC RBC Hgb Hct MCV MCH MCHC RDW Plt Count MPV Neut % (Auto) Lymph % (Auto) [place] % (Auto) Eos % (Auto) Baso % (Auto) Lymph # (Auto) [place] # (Auto) Eos # (Auto) Baso # (Auto) Absolute Neuts (auto) Sodium Potassium Chloride Carbon Dioxide Anion Gap BUN Creatinine Est GFR ( Amer) Est GFR (Non-Af Amer) Random Glucose Fasting Glucose 81 Calcium Magnesium Total Bilirubin AST ALT Alkaline Phosphatase Total Protein Albumin Globulin Albumin/Globulin Ratio Triglycerides 123 Cholesterol 129 L LDL Cholesterol Direct 61 HDL Cholesterol 43 TSH 3rd Generation Urine Color Urine Appearance Urine pH Ur Specific [place] Urine Protein Urine Glucose (UA) Urine Ketones Urine Blood Urine Nitrate Urine Bilirubin Urine Urobilinogen Ur Leukocyte Esterase Urine RBC Urine WBC Ur Epithelial Cells Urine Bacteria Urine Opiates Screen Negative Urine Methadone Screen Negative Ur Barbiturates Screen Negative Ur Phencyclidine Scrn Negative Ur Amphetamines Screen Negative U Benzodiazepines Scrn Positive H U Oth Cocaine Metabols Negative U Cannabinoids Screen Negative Alcohol, Quantitative < 10 08/09/18 07:30 WBC RBC Hgb Hct MCV MCH MCHC RDW Plt Count MPV Neut % (Auto) Lymph % (Auto) [place] % (Auto) Eos % (Auto) Baso % (Auto) Lymph # (Auto) [place] # (Auto) Eos # (Auto) Baso # (Auto) Absolute Neuts (auto) Sodium Potassium Chloride Carbon Dioxide Anion Gap BUN Creatinine Est GFR ( Amer) Est GFR (Non-Af Amer) Random Glucose Fasting Glucose Calcium Magnesium Total Bilirubin AST ALT Alkaline Phosphatase Total Protein Albumin Globulin Albumin/Globulin Ratio Triglycerides Cholesterol LDL Cholesterol Direct HDL Cholesterol TSH 3rd Generation 0.27 L Urine Color Urine Appearance Urine pH Ur Specific [place] Urine Protein Urine Glucose (UA) Urine Ketones Urine Blood Urine Nitrate Urine Bilirubin Urine Urobilinogen Ur Leukocyte Esterase Urine RBC Urine WBC Ur Epithelial Cells Urine Bacteria Urine Opiates Screen Urine Methadone Screen Ur Barbiturates Screen Ur Phencyclidine Scrn Ur Amphetamines Screen U Benzodiazepines Scrn U Oth Cocaine Metabols U Cannabinoids Screen Alcohol, Quantitative Estimated Date of D/C: 08/18/18
[2018-08-15] MEDS: Cholecalciferol 1,000 INTLU TAB PO SCH (10:31)
[2018-08-16] MEDS: Cholecalciferol 1,000 INTLU TAB PO SCH (08:29)
[2018-08-16] MEDS: Albuterol-Ipratrop 3 mg / 0.5 (3 ml) UD IH SCH ×2 (08:30→23:20)
--- NOTE | 2018-08-16 09:53 | PCM.PYCHPN ---
Psychiatric Progress Note - Psychiatric Progress Note Patient seen today, length of contact: 35 min Problems Identified/Issues Discussed: Please refer to Dr. Gautam's admission note dated 07/31/18 for full assessment, patient Patient is a 62-year old female with history of MDD (major depressive disorder), single episode, severe, Anxiety and Opioid Abuse who was recently treated on this unit from 07/30/18-08/05/18. Discharge medications included: Cogentin 1 mg PO BID Vistaril 50 mg PO BID Remeron 45 mg PO HS Nicotine 21 mg/24 hr Seroquel 50 mg PO HS Ambien 10 mg PO HS She presented to our ER on 08/08/18 complaining of severe depression and uncontrolled anxiety, likely in context of noncompliance. Of note, patient returned to the ER on 08/05/18 a few hours after discharge complaining of extreme anxiety and was discharged from the ER. PROGRESS NOTE 08/16/18 I reviewed recent notes and patient was interviewed at bedside again. She is familiar to me from prior interviews during this admission and prior admission. Presentation remains unkempt though oriented x3. Focus and engagement during our 1:1's appear to be improving and she seems a little brighter though affect remains constricted. Patient admits that she is slowly improving and feels more hopeful than hopeless. Anxiety is "okay". Patient denies any issues with her medications and denies any new discomfort or pain. Staff notes indicate that patient has been cooperative on the unit but still k eeps to herself. She is minimally social. There were no behavioral issues overnight. Diagnostic Results: MDD (major depressive disorder), single episode, severe, Anxiety Opioid Abuse Medication Change: No ( ) Medical Record Reviewed: Yes Mental Status Examination - Cognitive Function Orientation: Person, Place Memory: Impaired Attention: WNL Concentration: Poor (improving) Association: Loose Fund of Knowledge: Poor - Mood Mood: Depressed ("slowly better"), Anxious - Affect Affect: Constricted (a little brighter with improving range) - Speech Speech: Appropriate - Formal Thought Process Formal Thought Process: No Impairment, Loosening of associations (improving) - Suicidal Ideation Suicidal Ideation: No - Homicidal Ideation Homicidal Ideation: No Goal/Treatment Plan - Goal/Treatment Plan Need for Continued Stay: Remain at risks for inpatient hospitalization, Severe depression anxiety, Discharge may exacerbated symptoms, Failed transitioning, Severe functional impairment Progress Toward Problem(s) and Goals/Treatment Plan: * group, milieu and supportive tx * No new lab results noted thus far today * Vitals reviewed and noted below: Selected Entries 08/16/18 07:00 Temperature 97.6 F Pulse Rate 75 Respiratory 18 Rate Blood Pressure 101/66 Admission labs and studies noted below CXR : NAD. EKG: NSR at 94 bpm, (-) acute ST changes, as read by PA. Patient given macrobid po for UTI. 08/09/18 08/09/18 08/09/18 07:30 07:30 07:30 Fasting Glucose 81 Triglycerides 123 Cholesterol 129 L LDL Cholesterol Direct 61 HDL Cholesterol 43 TSH 3rd Generation 0.27 L RPR Nonreactive Laboratory Tests 08/08/18 08/08/18 08/08/18 19:07 19:07 19:07 WBC 9.4 RBC 4.51 Hgb 13.4 Hct 40.4 MCV 89.6 MCH 29.7 MCHC 33.2 RDW 13.3 Plt Count 299 MPV 10.4 Neut % (Auto) 75.0 H Lymph % (Auto) 18.4 L [place] % (Auto) 3.7 Eos % (Auto) 2.7 Baso % (Auto) 0.2 Lymph # (Auto) 1.7 [place] # (Auto) 0.4 Eos # (Auto) 0.3 Baso # (Auto) 0.02 Absolute Neuts (auto) 7.06 H Sodium 136 Potassium 3.5 L Chloride 106 Carbon Dioxide 20 L Anion Gap 13 BUN 13 Creatinine 0.7 Est GFR ( Amer) > 60 Est GFR (Non-Af Amer) > 60 Random Glucose 82 Fasting Glucose Calcium 9.8 Magnesium 1.7 Total Bilirubin 0.4 AST 40 H D ALT 25 Alkaline Phosphatase 101 Total Protein 7.3 Albumin 4.2 Globulin 3.1 Albumin/Globulin Ratio 1.4 Triglycerides Cholesterol LDL Cholesterol Direct HDL Cholesterol TSH 3rd Generation Urine Color Jazmyn Urine Appearance Clear Urine pH 5.5 Ur Specific [place] 1.010 Urine Protein Trace H Urine Glucose (UA) 100 H Urine Ketones Negative Urine Blood Negative Urine Nitrate Positive H Urine Bilirubin Negative Urine Urobilinogen 2.0 H Ur Leukocyte Esterase Negative Urine RBC 2 - 5 H Urine WBC 5 - 10 H Ur Epithelial Cells 6 - 8 H Urine Bacteria Small Urine Opiates Screen Urine Methadone Screen Ur Barbiturates Screen Ur Phencyclidine Scrn Ur Amphetamines Screen U Benzodiazepines Scrn U Oth Cocaine Metabols U Cannabinoids Screen Alcohol, Quantitative 08/08/18 08/08/18 08/09/18 19:07 19:07 07:30 WBC RBC Hgb Hct MCV MCH MCHC RDW Plt Count MPV Neut % (Auto) Lymph % (Auto) [place] % (Auto) Eos % (Auto) Baso % (Auto) Lymph # (Auto) [place] # (Auto) Eos # (Auto) Baso # (Auto) Absolute Neuts (auto) Sodium Potassium Chloride Carbon Dioxide Anion Gap BUN Creatinine Est GFR ( Amer) Est GFR (Non-Af Amer) Random Glucose Fasting Glucose 81 Calcium Magnesium Total Bilirubin AST ALT Alkaline Phosphatase Total Protein Albumin Globulin Albumin/Globulin Ratio Triglycerides 123 Cholesterol 129 L LDL Cholesterol Direct 61 HDL Cholesterol 43 TSH 3rd Generation Urine Color Urine Appearance Urine pH Ur Specific [place] Urine Protein Urine Glucose (UA) Urine Ketones Urine Blood Urine Nitrate Urine Bilirubin Urine Urobilinogen Ur Leukocyte Esterase Urine RBC Urine WBC Ur Epithelial Cells Urine Bacteria Urine Opiates Screen Negative Urine Methadone Screen Negative Ur Barbiturates Screen Negative Ur Phencyclidine Scrn Negative Ur Amphetamines Screen Negative U Benzodiazepines Scrn Positive H U Oth Cocaine Metabols Negative U Cannabinoids Screen Negative Alcohol, Quantitative < 10 08/09/18 07:30 WBC RBC Hgb Hct MCV MCH MCHC RDW Plt Count MPV Neut % (Auto) Lymph % (Auto) [place] % (Auto) Eos % (Auto) Baso % (Auto) Lymph # (Auto) [place] # (Auto) Eos # (Auto) Baso # (Auto) Absolute Neuts (auto) Sodium Potassium Chloride Carbon Dioxide Anion Gap BUN Creatinine Est GFR ( Amer) Est GFR (Non-Af Amer) Random Glucose Fasting Glucose Calcium Magnesium Total Bilirubin AST ALT Alkaline Phosphatase Total Protein Albumin Globulin Albumin/Globulin Ratio Triglycerides Cholesterol LDL Cholesterol Direct HDL Cholesterol TSH 3rd Generation 0.27 L Urine Color Urine Appearance Urine pH Ur Specific [place] Urine Protein Urine Glucose (UA) Urine Ketones Urine Blood Urine Nitrate Urine Bilirubin Urine Urobilinogen Ur Leukocyte Esterase Urine RBC Urine WBC Ur Epithelial Cells Urine Bacteria Urine Opiates Screen Urine Methadone Screen Ur Barbiturates Screen Ur Phencyclidine Scrn Ur Amphetamines Screen U Benzodiazepines Scrn U Oth Cocaine Metabols U Cannabinoids Screen Alcohol, Quantitative Estimated Date of D/C: 08/18/18
[2018-08-17] MEDS: Albuterol-Ipratrop 3 mg / 0.5 (3 ml) UD IH SCH ×2 (08:40→21:00)
[2018-08-17] MEDS: Cholecalciferol 1,000 INTLU TAB PO SCH (08:57)
--- NOTE | 2018-08-17 10:20 | PCM.PYCHPN ---
Psychiatric Progress Note - Psychiatric Progress Note Patient seen today, length of contact: 35 min Problems Identified/Issues Discussed: Please refer to Dr. Gautam's admission note dated 07/31/18 for full assessment, patient Patient is a 62-year old female with history of MDD (major depressive disorder), single episode, severe, Anxiety and Opioid Abuse who was recently treated on this unit from 07/30/18-08/05/18. Discharge medications included: Cogentin 1 mg PO BID Vistaril 50 mg PO BID Remeron 45 mg PO HS Nicotine 21 mg/24 hr Seroquel 50 mg PO HS Ambien 10 mg PO HS She presented to our ER on 08/08/18 complaining of severe depression and uncontrolled anxiety, likely in context of noncompliance. Of note, patient returned to the ER on 08/05/18 a few hours after discharge complaining of extreme anxiety and was discharged from the ER. PROGRESS NOTE 08/17/18 I reviewed recent notes and patient was interviewed at bedside again. She is familiar to me from prior interviews during this admission and from her recent prior admission. Presentation remains unkempt though she is oriented x3. Focus and engagement during our 1:1 interviews appear to be improving and she seems a little brighter though affect remains constricted. Patient admits that she is slowly improving and feels more hopeful than hopeless. Anxiety is "okay". Patient denies any issues with her medications and denies any new discomfort or pain. Staff notes indicate that patient has been cooperative on the unit but still keeps to herself. She is minimally social and still appears depressed. There were no behavioral issues over the weekend. Diagnostic Results: MDD (major depressive disorder), single episode, severe, Anxiety Opioid Abuse Medication Change: No ( ) Medical Record Reviewed: Yes Mental Status Examination - Cognitive Function Orientation: Person, Place Memory: Impaired Attention: WNL Concentration: Poor (improving) Association: Loose Fund of Knowledge: Poor - Mood Mood: Depressed ("slowly better"), Anxious - Affect Affect: Constricted (a little brighter with improving range) - Speech Speech: Appropriate - Formal Thought Process Formal Thought Process: No Impairment, Loosening of associations (improving) - Suicidal Ideation Suicidal Ideation: No - Homicidal Ideation Homicidal Ideation: No Goal/Treatment Plan - Goal/Treatment Plan Need for Continued Stay: Remain at risks for inpatient hospitalization, Severe depression anxiety, Discharge may exacerbated symptoms, Failed transitioning, Severe functional impairment Progress Toward Problem(s) and Goals/Treatment Plan: * group, milieu and supportive tx * No new lab results noted thus far today * Vitals reviewed and noted below: Selected Entries 08/17/18 08:06 Temperature 98.3 F Pulse Rate 73 Respiratory 18 Rate Blood Pressure 103/69 * Awaiting read from brain MRI on 08/16/18 Admission labs and studies noted below CXR : NAD. EKG: NSR at 94 bpm, (-) acute ST changes, as read by PA. Patient given macrobid po for UTI. 08/09/18 08/09/18 08/09/18 07:30 07:30 07:30 Fasting Glucose 81 Triglycerides 123 Cholesterol 129 L LDL Cholesterol Direct 61 HDL Cholesterol 43 TSH 3rd Generation 0.27 L RPR Nonreactive Laboratory Tests 08/08/18 08/08/18 08/08/18 19:07 19:07 19:07 WBC 9.4 RBC 4.51 Hgb 13.4 Hct 40.4 MCV 89.6 MCH 29.7 MCHC 33.2 RDW 13.3 Plt Count 299 MPV 10.4 Neut % (Auto) 75.0 H Lymph % (Auto) 18.4 L [place] % (Auto) 3.7 Eos % (Auto) 2.7 Baso % (Auto) 0.2 Lymph # (Auto) 1.7 [place] # (Auto) 0.4 Eos # (Auto) 0.3 Baso # (Auto) 0.02 Absolute Neuts (auto) 7.06 H Sodium 136 Potassium 3.5 L Chloride 106 Carbon Dioxide 20 L Anion Gap 13 BUN 13 Creatinine 0.7 Est GFR ( Amer) > 60 Est GFR (Non-Af Amer) > 60 Random Glucose 82 Fasting Glucose Calcium 9.8 Magnesium 1.7 Total Bilirubin 0.4 AST 40 H D ALT 25 Alkaline Phosphatase 101 Total Protein 7.3 Albumin 4.2 Globulin 3.1 Albumin/Globulin Ratio 1.4 Triglycerides Cholesterol LDL Cholesterol Direct HDL Cholesterol TSH 3rd Generation Urine Color Jazmyn Urine Appearance Clear Urine pH 5.5 Ur Specific [place] 1.010 Urine Protein Trace H Urine Glucose (UA) 100 H Urine Ketones Negative Urine Blood Negative Urine Nitrate Positive H Urine Bilirubin Negative Urine Urobilinogen 2.0 H Ur Leukocyte Esterase Negative Urine RBC 2 - 5 H Urine WBC 5 - 10 H Ur Epithelial Cells 6 - 8 H Urine Bacteria Small Urine Opiates Screen Urine Methadone Screen Ur Barbiturates Screen Ur Phencyclidine Scrn Ur Amphetamines Screen U Benzodiazepines Scrn U Oth Cocaine Metabols U Cannabinoids Screen Alcohol, Quantitative 08/08/18 08/08/18 08/09/18 19:07 19:07 07:30 WBC RBC Hgb Hct MCV MCH MCHC RDW Plt Count MPV Neut % (Auto) Lymph % (Auto) [place] % (Auto) Eos % (Auto) Baso % (Auto) Lymph # (Auto) [place] # (Auto) Eos # (Auto) Baso # (Auto) Absolute Neuts (auto) Sodium Potassium Chloride Carbon Dioxide Anion Gap BUN Creatinine Est GFR ( Amer) Est GFR (Non-Af Amer) Random Glucose Fasting Glucose 81 Calcium Magnesium Total Bilirubin AST ALT Alkaline Phosphatase Total Protein Albumin Globulin Albumin/Globulin Ratio Triglycerides 123 Cholesterol 129 L LDL Cholesterol Direct 61 HDL Cholesterol 43 TSH 3rd Generation Urine Color Urine Appearance Urine pH Ur Specific [place] Urine Protein Urine Glucose (UA) Urine Ketones Urine Blood Urine Nitrate Urine Bilirubin Urine Urobilinogen Ur Leukocyte Esterase Urine RBC Urine WBC Ur Epithelial Cells Urine Bacteria Urine Opiates Screen Negative Urine Methadone Screen Negative Ur Barbiturates Screen Negative Ur Phencyclidine Scrn Negative Ur Amphetamines Screen Negative U Benzodiazepines Scrn Positive H U Oth Cocaine Metabols Negative U Cannabinoids Screen Negative Alcohol, Quantitative < 10 08/09/18 07:30 WBC RBC Hgb Hct MCV MCH MCHC RDW Plt Count MPV Neut % (Auto) Lymph % (Auto) [place] % (Auto) Eos % (Auto) Baso % (Auto) Lymph # (Auto) [place] # (Auto) Eos # (Auto) Baso # (Auto) Absolute Neuts (auto) Sodium Potassium Chloride Carbon Dioxide Anion Gap BUN Creatinine Est GFR ( Amer) Est GFR (Non-Af Amer) Random Glucose Fasting Glucose Calcium Magnesium Total Bilirubin AST ALT Alkaline Phosphatase Total Protein Albumin Globulin Albumin/Globulin Ratio Triglycerides Cholesterol LDL Cholesterol Direct HDL Cholesterol TSH 3rd Generation 0.27 L Urine Color Urine Appearance Urine pH Ur Specific [place] Urine Protein Urine Glucose (UA) Urine Ketones Urine Blood Urine Nitrate Urine Bilirubin Urine Urobilinogen Ur Leukocyte Esterase Urine RBC Urine WBC Ur Epithelial Cells Urine Bacteria Urine Opiates Screen Urine Methadone Screen Ur Barbiturates Screen Ur Phencyclidine Scrn Ur Amphetamines Screen U Benzodiazepines Scrn U Oth Cocaine Metabols U Cannabinoids Screen Alcohol, Quantitative Estimated Date of D/C: 08/18/18
--- NOTE | 2018-08-17 13:40 | MRI ---
Date of service: 08/17/2018 PROCEDURE: MRI BRAIN WITHOUT CONTRAST HISTORY: forgetfulness COMPARISON: Noncontrast head CT 07/21/2018 and noncontrast brain MRI 03/05/2018. TECHNIQUE: Multiplanar, multisequence MR images of the brain were obtained without intravenous contrast enhancement. FINDINGS: HEMORRHAGE: Trace medial bilateral basal ganglia calcification identified. No definite intracranial hemorrhage appreciated bilaterally on subacute or acute basis. DWI: No evidence of an acute or early subacute infarction. BRAIN PARENCHYMA: Limited diffuse cerebral atrophy is reiterated as well as medial bilateral basal ganglia chronic lacunes. Normal corticomedullary differentiation is preserved. There is no mass effect there is no suspicious extra-axial collection identified. Midline brain anatomy remains within normal limits. VENTRICLES: Unremarkable. No hydrocephalus. CRANIUM: Unremarkable. ORBITS: Grossly unremarkable. PARANASAL SINUSES/MASTOIDS: Clear VASCULAR SYSTEM: Skull base flow voids intact. OTHER FINDINGS: None. IMPRESSION: Stable limited age-related neuro degenerative findings as well as bilateral medial basal ganglia chronic lacunes. No acute intracranial findings or significant interval change compared to prior head CT 07/21/2018 and brain MRI 03/05/2018.
[2018-08-18] MEDS: Albuterol-Ipratrop 3 mg / 0.5 (3 ml) UD IH SCH ×2 (08:56→21:15)
[2018-08-18] MEDS: Cholecalciferol 1,000 INTLU TAB PO SCH (08:57)
--- NOTE | 2018-08-18 15:59 | PCM.PYCHPN ---
Psychiatric Progress Note - Psychiatric Progress Note Patient seen today, length of contact: 35 min Patient Chief Complaint: "I feel very depressed,,," Problems Identified/Issues Discussed: Suicide/ homicide prevention, past psychiatric h/o, current psychiatric symptoms, medical problems, risk/benefits and alternatives of medications, medications compliance, coping strategies, substance abuse h/o, relapse prevention, importance of follow up with psychiatrist and therapist, discharge plan. Medical Problems: See HPI Diagnostic Results: 08/08/18 19:07 08/08/18 19:07 Lab Results 08/09/18 07:30: RPR Nonreactive 08/09/18 07:30: TSH 3rd Generation 0.27 L 08/09/18 07:30: Fasting Glucose 81, Triglycerides 123, Cholesterol 129 L, LDL Cholesterol Direct 61, HDL Cholesterol 43 08/08/18 19:07: Alcohol, Quantitative < 10 08/08/18 19:07: Urine Opiates Screen Negative, Urine Methadone Screen Negative, Ur Barbiturates Screen Negative, Ur Phencyclidine Scrn Negative, Ur Amphetamines Screen Negative, U Benzodiazepines Scrn Positive H, U Oth Cocaine Metabols Negative, U Cannabinoids Screen Negative 08/08/18 19:07: Sodium 136, Potassium 3.5 L, Chloride 106, Carbon Dioxide 20 L, Anion Gap 13, BUN 13, Creatinine 0.7, Est GFR ( Amer) > 60, Est GFR (Non- Af Amer) > 60, Random Glucose 82, Calcium 9.8, Magnesium 1.7, Total Bilirubin 0.4, AST 40 H D, ALT 25, Alkaline Phosphatase 101, Total Protein 7.3, Albumin 4.2, Globulin 3.1, Albumin/Globulin Ratio 1.4 08/08/18 19:07: Urine Color Jazmyn, Urine Appearance Clear, Urine pH 5.5, Ur Specific [place] 1.010, Urine Protein Trace H, Urine Glucose (UA) 100 H, Urine K etones Negative, Urine Blood Negative, Urine Nitrate Positive H, Urine Bilirubin Negative, Urine Urobilinogen 2.0 H, Ur Leukocyte Esterase Negative, Urine RBC 2 - 5 H, Urine WBC 5 - 10 H, Ur Epithelial Cells 6 - 8 H, Urine Bacteria Small 08/08/18 19:07: WBC 9.4, RBC 4.51, Hgb 13.4, Hct 40.4, MCV 89.6, MCH 29.7, MCHC 33.2, RDW 13.3, Plt Count 299, MPV 10.4, Neut % (Auto) 75.0 H, Lymph % (Auto) 18.4 L, [place] % (Auto) 3.7, Eos % (Auto) 2.7, Baso % (Auto) 0.2, Lymph # (Auto) 1.7, [place] # (Auto) 0.4, Eos # (Auto) 0.3, Baso # (Auto) 0.02, Absolute Neuts (auto) 7.06 H Vital Signs Temp Pulse Resp BP Pulse Ox 08/11/18 07:00 97.2 F L 78 18 108/71 08/10/18 16:00 82 105/73 08/10/18 07:00 97.8 F 84 19 117/78 08/09/18 16:00 80 99/67 L 08/08/18 23:39 18 08/08/18 20:35 91 H 18 130/85 100 08/08/18 19:34 96 H 18 113/95 H 100 08/08/18 18:01 98.8 F 101 H 20 117/80 97 Temp Pulse Resp BP Pulse Ox 98.1 F 67 18 94/61 L 97 08/18/18 06:39 08/18/18 06:39 08/18/18 06:39 08/18/18 06:39 08/12/18 07:00 DSM 5 Symptoms Update: Shortly, patient is a 62-year old female with history of MDD (major depressive disorder), single episode, severe, Anxiety and Opioid Abuse who was recently treated on this unit from 07/30/18-08/05/18. She presented to our ER on 08/08/18 complaining of severe depression and uncontrolled anxiety, likely in cont ext of noncompliance. Of note, patient returned to the ER on 08/05/18 a few hours after discharge complaining of extreme anxiety and was discharged from the ER. Patient was seen and examined today at the treatment team meeting room, patient complained of depression, "I do not feel well, I feel very hopeless, I do not know ..." Of the head was ordered by neurology team, but no official report yet. in regards of mood, memory and concentration, patient reported that she feels little better, but as per report from the nursing staff, patient appears to be disengaged, depressed, at times confused. 08/12/18 as per collateral information from patient Sister patient never presented with tremor, tremors started about 2 weeks ago, patient has episodes of confusion and difficulty to stay focused and concentrate, "she does not remember what medications she needs to take", as per collateral information patient is on B12 shot, discussed with medical team, B12 was started. as per staff pt is superficial, disengaged. Staff notes indicate that patient has been cooperative on the unit but still keeps to herself. She is minimally social and still appears depressed. There were no behavioral issues over the weekend. So far patient tolerated medications well, no side effects observed or reported, aims 0, no EPS. Diagnostic Results: MDD (major depressive disorder), single episode, severe, Anxiety Opioid Abuse Medication Change: Yes (Prozac increased discontinued, ) Medical Record Reviewed: Yes Consults ordered or reviewed: Medical consult appreciated Neurology consultation was called 08/13/18 Mental Status Examination - Cognitive Function Orientation: Person, Place Memory: Impaired Attention: WNL Concentration: Poor (improving) Association: Loose Fund of Knowledge: Poor - Mood Mood: Depressed ("I feel very depressed"), Anxious - Affect Affect: Flat - Speech Speech: Appropriate - Formal Thought Process Formal Thought Process: No Impairment, Loosening of associations (improving) - Suicidal Ideation Suicidal Ideation: No - Homicidal Ideation Homicidal Ideation: No Goal/Treatment Plan - Goal/Treatment Plan Need for Continued Stay: Remain at risks for inpatient hospitalization, Severe d epression anxiety, Discharge may exacerbated symptoms, Failed transitioning, Severe functional impairment Progress Toward Problem(s) and Goals/Treatment Plan: Milieu/structure/supportive therapy consultation for discharge plan and social issues Med management: Klonopin 1mg twice a day for anxiety Seroquel 100 mg at the nighttime for psychosis Prozac 40 mg was started for depression and anxiety remeron discontinued seroquel 100mg po hs for mood stabilization and psychosis Family involvement Follow up on labs Will monitor closely Pt was educated about risk/benefits and alternatives of medications, coping strategies (safety plan, suicide prevention), relapse prevention, importance of follow up with psychiatrist and therapist, stay away from drugs/alcohol/smoking Adult day treatment Center "[place]" Estimated Date of D/C: 08/20/18
--- NOTE | 2018-08-18 16:48 | PCM.BM ---
<Noemi Zamorano - Last Filed: 08/18/18 16:44> Treatment Plan Problems - Problems identified on initial assessmt Anxiety Date Initiated: 08/08/18 (08/18 PT REMAIN ANXIOUS AND ISOLATIVE.STILL ADMITS OF FEELING DEPRESSED.) Time Initiated: 22:00 Assessment reference: NA Status: Active Priority: 1 Altered thought process Date Initiated: 08/08/18 (08/18 THOUGHT PROCESS REMAIN POOR.) Time Initiated: 22:00 Assessment reference: NA Status: Active Priority: 2 Treatment assets and liabiliti Patient Assests: cooperative, motivated, ADL independent, negotiates basic needs, good interpersonal skills Patient Liabilities: poor support system - Milieu Protocol Maintain good personal hygiene: daily Encourage regular showers, daily Remind patient to perform daily oral care, daily Assist patient to perform ADL's Conduct patient checks and document Observation sheet: Q15 minutes Maintain personal safety: daily Educate patient to report safety concerns to staff, daily Monitor environment for contraband/sharps Medication safety: Monitor for expected outcome, potential side effects: daily, Assess barriers to learning: daily, Assess readiness for medication education: daily Milieu Narrative: Milieu/structure/supportive therapy consultation for discharge plan and social issues Med management: Klonopin 1mg twice a day for anxiety Seroquel 100 mg at the nighttime for psychosis Prozac 40 mg was started for depression and anxiety remeron discontinued seroquel 100mg po hs for mood stabilization and psychosis Family involvement Follow up on labs Will monitor closely Pt was educated about risk/benefits and alternatives of medications, coping strategies (safety plan, suicide prevention), relapse prevention, importance of follow up with psychiatrist and therapist, stay away from drugs/alcohol/smoking [facility] Family Contact Family involvement: Family/SO is involved Family contact: Patient agrees to contact Family contact name: Catherine Rivas (sister) Family contacted how many times per week?: 2 Discharge/Continuing Care - Education Needs Education Needs: Patient Medication, Patient Coping Skills - Discharge Discharge Criteria: Ability to care for self - Treatment Team Participation Patient/Family/SO Statement: Milieu/structure/supportive therapy SW consultation for discharge plan and social issues Med management: Klonopin 1mg twice a day for anxiety Seroquel 100 mg at the nighttime for psychosis Prozac 40 mg was started for depression and anxiety remeron discontinued seroquel 100mg po hs for mood stabilization and psychosis Family involvement Follow up on labs Will monitor closely Pt was educated about risk/benefits and alternatives of medications, coping strategies (safety plan, suicide prevention), relapse prevention, importance of follow up with psychiatrist and therapist, stay away from drugs/alcohol/smoking [facility] Treatment Plan Review - Problem Anxiety Time Initiated: 22:00 Altered thought process Time Initiated: 22:00 <Melissa Calvin - Last Filed: 08/19/18 12:01> Family Contact Family involvement: Family/SO is involved Family contact: Patient agrees to contact <Soo Gautam - Last Filed: 08/19/18 14:51> - Diagnosis (1) Depression Status: Acute Interventions: Milieu/structure/supportive therapy SW consultation for discharge plan and social issues Med management: Klonopin 1mg twice a day for anxiety Seroquel 100 mg at the nighttime for psychosis Prozac 40 mg was started for depression and anxiety remeron discontinued seroquel 100mg po hs for mood stabilization and psychosis Family involvement Follow up on labs Will monitor closely Pt was educated about risk/benefits and alternatives of medications, coping strategies (safety plan, suicide prevention), relapse prevention, importance of follow up with psychiatrist and therapist, stay away from drugs/alcohol/smoking
--- NOTE | 2018-08-18 17:56 | CP.PCM.CON ---
History of Present Illness - History of Present Illness History of Present Illness: Neurology consult note dictated but still pending so will elaborate here. Neurology consult requested by DR. Soo Pederson. MIss Martinez is a 62 yr old woman who is admitted and consulted for cognitive decline. 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 This can be s een in dementia, but may also indicate some baseline vascular disease. Plan: 1. MRI Brain without contrast. Thank you Dr. Maurer Neurology Past Patient History - Infectious Disease Hx of Infectious Diseases: None - Tetanus Immunizations Tetanus Immunization: Unknown - Past Social History Smoking Status: Current Some Days Smoker - CARDIAC Hx Cardiac Disorders: Yes Hx Hypertension: Yes - PULMONARY Hx Respiratory Disorders: Yes Hx Chronic Obstructive Pulmonary Disease (COPD): Yes - NEUROLOGICAL Hx Neurological Disorder: Yes Hx Seizures: Yes - HEENT Hx HEENT Problems: Yes (blurred vision) - RENAL Hx Chronic Kidney Disease: No - ENDOCRINE/METABOLIC Hx Endocrine Disorders: Yes Hx Hyperthyroidism: Yes - HEMATOLOGICAL/ONCOLOGICAL Hx Blood Disorders: No - INTEGUMENTARY Hx Dermatological Problems: No - MUSCULOSKELETAL/RHEUMATOLOGICAL Hx Musculoskeletal Disorders: No - GASTROINTESTINAL Hx Gastrointestinal Disorders: Yes (APPENDICITIS WITH PERITONITIS-APPENDECTOMY) - GENITOURINARY/GYNECOLOGICAL Hx Genitourinary Disorders: Yes Hx Urinary Tract Infection: Yes - PSYCHIATRIC Hx Psychophysiologic Disorder: Yes Hx Anxiety: Yes Hx Depression: Yes Hx Substance Use: Yes (HEROIN) - SURGICAL HISTORY Hx Appendectomy: Yes - ANESTHESIA Hx Anesthesia: Yes Hx Anesthesia Reactions: No Hx Malignant Hyperthermia: No Meds Allergies/Adverse Reactions: Allergies Allergy/AdvReac Type Severity Reaction Status Date / Time sulfur Allergy Intermediate RASH Uncoded 08/07/18 10:50 - Medications Medications: Current Medications Acetaminophen (Tylenol 325mg Tab) 325 mg PO Q6H PRN PRN Reason: Pain, Mild (1-3) Al Hydrox/Mg Hydrox/Simethicone (Maalox Plus 30 Ml) 30 ml PO DAILY PRN PRN Reason: Dyspepsia Albuterol/Ipratropium (Duoneb 3 Mg/0.5 Mg (3 Ml) Ud) 3 ml IH [id number] COCO Last Admin: 08/18/18 08:56 Dose: 3 ml Albuterol/Ipratropium (Duoneb 3 Mg/0.5 Mg (3 Ml) Ud) 3 ml IH [id number] PRN PRN Reason: Shortness of Breath Atorvastatin Calcium (Lipitor) 20 mg PO DIN [facility] Last Admin: 08/18/18 16:55 Dose: 20 mg Cholecalciferol (Vitamin D) 1,000 intlu PO DAILY [facility] Last Admin: 08/18/18 08:57 Dose: 1,000 intlu Clonazepam (Klonopin) 1 mg PO BID [facility]; Protocol Last Admin: 08/18/18 16:56 Dose: 1 mg Cyanocobalamin (Vitamin B12 100 Mcg Tab) 100 mcg PO DAILY [facility] Last Admin: 08/18/18 08:57 Dose: 100 mcg Fluoxetine HCl (Prozac) 40 mg PO DAILY [facility] Hydroxyzine Pamoate (Vistaril) 50 mg PO BID PRN; Protocol PRN Reason: Anxiety Magnesium Hydroxide (Milk Of Magnesia) 30 ml PO DAILY PRN PRN Reason: Constipation Nicotine (Nicoderm Cq) 1 patch TD DAILY [facility] Last Admin: 08/18/18 11:03 Dose: 1 patch Quetiapine Fumarate (Seroquel) 100 mg PO HS [facility]; Protocol Last Admin: 08/17/18 21:46 Dose: 100 mg Zolpidem Tartrate (Ambien) 10 mg PO HS [facility]; Protocol Last Admin: 08/17/18 21:46 Dose: 10 mg Results - Vital Signs Recent Vital Signs: Last Vital Signs Temp 98.1 F 08/18/18 06:39 Pulse 81 08/18/18 16:00 Resp 18 08/18/18 06:39 BP 92/60 L 08/18/18 16:00 Pulse Ox 97 08/12/18 07:00 - Labs Result Diagrams: 08/08/18 19:07 08/08/18 19:07
[2018-08-19] MEDS: Albuterol-Ipratrop 3 mg / 0.5 (3 ml) UD IH SCH ×2 (09:40→20:55)
[2018-08-19] MEDS: Cholecalciferol 1,000 INTLU TAB PO SCH (10:50)
--- NOTE | 2018-08-19 14:59 | PCM.PYCHPN ---
Psychiatric Progress Note - Psychiatric Progress Note Patient seen today, length of contact: 35 min Patient Chief Complaint: "I feel little better" Problems Identified/Issues Discussed: Suicide/ homicide prevention, past psychiatric h/o, current psychiatric symptoms, medical problems, risk/benefits and alternatives of medications, medications compliance, coping strategies, substance abuse h/o, relapse prevention, importance of follow up with psychiatrist and therapist, discharge plan. Medical Problems: See HPI Diagnostic Results: 08/08/18 19:07 08/08/18 19:07 Lab Results 08/09/18 07:30: RPR Nonreactive 08/09/18 07:30: TSH 3rd Generation 0.27 L 08/09/18 07:30: Fasting Glucose 81, Triglycerides 123, Cholesterol 129 L, LDL Cholesterol Direct 61, HDL Cholesterol 43 08/08/18 19:07: Alcohol, Quantitative < 10 08/08/18 19:07: Urine Opiates Screen Negative, Urine Methadone Screen Negative, Ur Barbiturates Screen Negative, Ur Phencyclidine Scrn Negative, Ur Amphetamines Screen Negative, U Benzodiazepines Scrn Positive H, U Oth Cocaine Metabols Negative, U Cannabinoids Screen Negative 08/08/18 19:07: Sodium 136, Potassium 3.5 L, Chloride 106, Carbon Dioxide 20 L, Anion Gap 13, BUN 13, Creatinine 0.7, Est GFR ( Amer) > 60, Est GFR (Non- Af Amer) > 60, Random Glucose 82, Calcium 9.8, Magnesium 1.7, Total Bilirubin 0.4, AST 40 H D, ALT 25, Alkaline Phosphatase 101, Total Protein 7.3, Albumin 4.2, Globulin 3.1, Albumin/Globulin Ratio 1.4 08/08/18 19:07: Urine Color Jazmyn, Urine Appearance Clear, Urine pH 5.5, Ur Specific [place] 1.010, Urine Protein Trace H, Urine Glucose (UA) 100 H, Urine Ketones Negative, Urine Blood Negative, Urine Nitrate Positive H, Urine Bilirubi n Negative, Urine Urobilinogen 2.0 H, Ur Leukocyte Esterase Negative, Urine RBC 2 - 5 H, Urine WBC 5 - 10 H, Ur Epithelial Cells 6 - 8 H, Urine Bacteria Small 08/08/18 19:07: WBC 9.4, RBC 4.51, Hgb 13.4, Hct 40.4, MCV 89.6, MCH 29.7, MCHC 33.2, RDW 13.3, Plt Count 299, MPV 10.4, Neut % (Auto) 75.0 H, Lymph % (Auto) 18.4 L, [place] % (Auto) 3.7, Eos % (Auto) 2.7, Baso % (Auto) 0.2, Lymph # (Auto) 1.7, [place] # (Auto) 0.4, Eos # (Auto) 0.3, Baso # (Auto) 0.02, Absolute Neuts (auto) 7.06 H Vital Signs Temp Pulse Resp BP Pulse Ox 08/11/18 07:00 97.2 F L 78 18 108/71 08/10/18 16:00 82 105/73 08/10/18 07:00 97.8 F 84 19 117/78 08/09/18 16:00 80 99/67 L 08/08/18 23:39 18 08/08/18 20:35 91 H 18 130/85 100 08/08/18 19:34 96 H 18 113/95 H 100 08/08/18 18:01 98.8 F 101 H 20 117/80 97 Temp Pulse Resp BP Pulse Ox 98.1 F 67 18 94/61 L 97 08/18/18 06:39 08/18/18 06:39 08/18/18 06:39 08/18/18 06:39 08/12/18 07:00 DSM 5 Symptoms Update: Shortly, patient is a 62-year old female with history of MDD (major depressive disorder), single episode, severe, Anxiety and Opioid Abuse who was recently treated on this unit from 07/30/18-08/05/18. She presented to our ER on 08/08/18 complaining of severe depression and uncontrolled anxiety, likely in context of noncompliance. Of note, patient returned to the ER on 08/05/18 a few hours after discharge complaining of extreme anxiety and was discharged from the ER. Patient was seen and examined today next nursing patient reported that she feels "little better", pt denied thoughts of harming self or others. pt was seen by Neuro, pt had MRI as well. as per neuro, constructive apraxia could be seen in Dementia as well as vascular disease. in regards of mood, memory and concentration, patient reported that she feels little better, but as per report from the nursing staff, patient appears to be disengaged, depressed, at times confused. 08/12/18 as per collateral information from patient Sister patient never presented with tremor, tremors started about 2 weeks ago, patient has episodes of confusio n and difficulty to stay focused and concentrate, "she does not remember what medications she needs to take", as per collateral information patient is on B12 shot, discussed with medical team, B12 was started. as per staff pt is superficial, disengaged. Staff notes indicate that patient has been cooperative on the unit but still keeps to herself. She is minimally social and still appears depressed. There were no behavioral issues over the weekend. So far patient tolerated medications well, no side effects observed or reported, aims 0, no EPS. Diagnostic Results: MDD (major depressive disorder), single episode, severe, Anxiety Opioid Abuse Medication Change: Yes (Prozac increased) Medical Record Reviewed: Yes Mental Status Examination - Cognitive Function Orientation: Person, Place Memory: Impaired Attention: WNL Concentration: Poor (improving) Association: Loose Fund of Knowledge: Poor - Mood Mood: Depressed ("I feel very depressed"), Anxious - Affect Affect: Flat - Speech Speech: Appropriate - Formal Thought Process Formal Thought Process: No Impairment, Loosening of associations (improving) - Suicidal Ideation Suicidal Ideation: No - Homicidal Ideation Homicidal Ideation: No Goal/Treatment Plan - Goal/Treatment Plan Need for Continued Stay: Remain at risks for inpatient hospitalization, Severe depression anxiety, Discharge may exacerbated symptoms, Failed transitioning, Severe functional impairment Progress Toward Problem(s) and Goals/Treatment Plan: Milieu/structure/supportive therapy SW consultation for discharge plan and social issues Med management: Klonopin 1mg twice a day for anxiety Prozac 40 mg was started for depression and anxiety remeron discontinued seroquel 100mg po hs for mood stabilization and psychosis Family involvement Follow up on labs Will monitor closely Pt was educated about risk/benefits and alternatives of medications, coping strategies (safety plan, suicide prevention), relapse prevention, importance of follow up with psychiatrist and therapist, stay away from drugs/alcohol/smoking Adult [facility]" Estimated Date of D/C: 08/20/18
[2018-08-20 07:19] VITALS: BP 100/68; PULSE 79; RESP 17; TEMP 97.9
[2018-08-20] MEDS: Albuterol-Ipratrop 3 mg / 0.5 (3 ml) UD IH SCH (09:15)
[2018-08-20] MEDS: Cholecalciferol 1,000 INTLU TAB PO SCH (09:20)
--- NOTE | 2018-08-20 15:25 | PCM.PYCHDC ---
Mental Status Examination - Mental Status Examination Orientation: Person, Place, Situation, Time Memory: Impaired (baseline) Mood: Depressed (but better) Affect: Constricted (More reactive, mood congruent) Speech: Appropriate Attention: WNL Concentration: WNL Association: WNL Fund of Knowledge: WNL Formal Thought Process: No Impairment Description of patient's judgement and insight: Pt has improved insight into mental and medical illness, pt was compliant with medications and unit rules and regulations, pt was attending therapy groups, was calm, cooperative, socially appropriate, no behavioral incidents, no agitation, no aggression. Psychotic Thoughts and Behaviors: Pt denied v/a/t hallucinations, denied paranoid ideations, pt does not appear to be psychotic, and thought process is goal directed. Suicidal Ideation: No Current Homicidal Ideation?: No Plan: pt adamantly denied thoughts of harming self or others denied intent or plan. Discharge Summary - Discharge Note Reason for Hospitalization: Depression, anxiety. Psychiatric History (includes Medical, Family, Personal Hx): History of depression, anxiety, opioid abuse Laboratory Data: 08/08/18 19:07 08/08/18 19:07 Lab Results 08/14/18 15:37: Urine Color Yellow, Urine Appearance Clear, Urine pH 5.5, Ur Specific [place] >= 1.030, Urine Protein Negative, Urine Glucose (UA) Negative, Urine Ketones Trace H, Urine Blood Negative, Urine Nitrate Negative, Urine Bilirubin Negative, Urine Urobilinogen 0.2, Ur Leukocyte Esterase Negative 08/11/18 17:30: C.trachomatis RNA (TMA) Not detected, N.gonorrhoeae RNA (TMA) Not detected 08/11/18 16:20: Urine Color Yellow, Urine Appearance Clear, Urine pH 6.0, Ur Specific [place] >= 1.030, Urine Protein Negative, Urine Glucose (UA) Negative, Urine Ketones Trace H, Urine Blood Negative, Urine Nitrate Negative, Urine Bilirubin Negative, Urine Urobilinogen 0.2, Ur Leukocyte Esterase Negative 08/09/18 07:30: RPR Nonreactive 08/09/18 07:30: TSH 3rd Generation 0.27 L 08/09/18 07:30: Fasting Glucose 81, Triglycerides 123, Cholesterol 129 L, LDL Cholesterol Direct 61, HDL Cholesterol 43 08/08/18 19:07: Alcohol, Quantitative < 10 08/08/18 19:07: Urine Opiates Screen Negative, Urine Methadone Screen Negative, Ur Barbiturates Screen Negative, Ur Phencyclidine Scrn Negative, Ur Amphetamines Screen Negative, U Benzodiazepines Scrn Positive H, U Oth Cocaine Metabols Negative, U Cannabinoids Screen Negative 08/08/18 19:07: Sodium 136, Potassium 3.5 L, Chloride 106, Carbon Dioxide 20 L, Anion Gap 13, BUN 13, Creatinine 0.7, Est GFR ( Amer) > 60, Est GFR (Non- Af Amer) > 60, Random Glucose 82, Calcium 9.8, Magnesium 1.7, Total Bilirubin 0.4, AST 40 H D, ALT 25, Alkaline Phosphatase 101, Total Protein 7.3, Albumin 4.2, Globulin 3.1, Albumin/Globulin Ratio 1.4 08/08/18 19:07: Urine Color Jazmyn, Urine Appearance Clear, Urine pH 5.5, Ur Specific [place] 1.010, Urine Protein Trace H, Urine Glucose (UA) 100 H, Urine Ketones Negative, Urine Blood Negative, Urine Nitrate Positive H, Urine Bilirubin Negative, Urine Urobilinogen 2.0 H, Ur Leukocyte Esterase Negative, Urine RBC 2 - 5 H, Urine WBC 5 - 10 H, Ur Epithelial Cells 6 - 8 H, Urine Ba cteria Small 08/08/18 19:07: WBC 9.4, RBC 4.51, Hgb 13.4, Hct 40.4, MCV 89.6, MCH 29.7, MCHC 33.2, RDW 13.3, Plt Count 299, MPV 10.4, Neut % (Auto) 75.0 H, Lymph % (Auto) 18.4 L, [place] % (Auto) 3.7, Eos % (Auto) 2.7, Baso % (Auto) 0.2, Lymph # (Auto) 1.7, [place] # (Auto) 0.4, Eos # (Auto) 0.3, Baso # (Auto) 0.02, Absolute Neuts (auto) 7.06 H Vital Signs Temp Pulse Resp BP Pulse Ox 08/20/18 07:00 97.9 F 79 17 100/68 08/19/18 16:00 80 104/72 08/19/18 07:00 97.3 F L 74 18 102/66 08/18/18 16:00 81 92/60 L 08/18/18 06:39 98.1 F 67 18 94/61 L 08/17/18 16:54 76 100/70 08/17/18 08:06 98.3 F 73 18 103/69 08/16/18 16:51 80 101/68 08/16/18 07:00 97.6 F 75 18 101/66 08/15/18 16:00 82 94/65 L 08/15/18 07:00 97.2 F L 76 18 91/62 L 08/14/18 16:00 99/64 L 08/14/18 06:54 97.6 F 71 97/58 L 08/13/18 16:00 73 99/64 L 08/13/18 06:56 97.1 F L 80 17 91/57 L 08/13/18 06:53 97.1 F L 80 17 91/57 L 08/12/18 16:00 77 95/63 L 08/12/18 07:00 97.7 F 67 20 97/65 L 97 08/11/18 16:16 98.0 F 81 15 111/73 08/11/18 07:00 97.2 F L 78 18 108/71 08/10/18 16:00 82 105/73 08/10/18 07:00 97.8 F 84 19 117/78 08/09/18 16:00 80 99/67 L 08/08/18 23:39 18 08/08/18 20:35 91 H 18 130/85 100 08/08/18 19:34 96 H 18 113/95 H 100 08/08/18 18:01 98.8 F 101 H 20 117/80 97 Consultations:: List each consultation separately and include: 1. Reason for request. 2. Findings. 3. Follow-up Consultations: Medical consult appreciated Neurology consultation was called, appreciated please see notes for more detailed information Summary of Hospital Course include:: 1. Description of specific treatment plan utilized for patients during their course of treatmen. 2. Summarize the time- course for resolution of acute symptoms and/or regressed behaviors. 3. Describe issues identified and worked on during hospitalization. 4. Describe medication utilized. 5. Describe medical problems identified and treated. 6. Reassessment of suicide risk Summary of Hospital Course: Shortly, patient is a 62-year old female with history of MDD (major depressive disorder), single episode, severe, Anxiety and Opioid Abuse who was recently treated on this unit from 07/30/18-08/05/18. Discharge medications included: Cogentin 1 mg PO BID Vistaril 50 mg PO BID Remeron 45 mg PO HS Nicotine 21 mg/24 hr Seroquel 50 mg PO HS Ambien 10 mg PO HS She presented to our ER on 08/08/18 complaining of severe depression and uncontrolled anxiety, likely in context of noncompliance. Of note, patient returned to the ER on 08/05/18 a few hours after discharge complaining of extreme anxiety and was discharged from the ER. Please see admission note for more detailed information. Patient was stabilized on the following medications: Klonopin 1 mg twice a day vitamin D 1000 mg daily, Lipitor 20 mg at the nighttime, DuoNeb as needed, vitamin B12, Prozac 40 mg daily for depression and anxiety, Seroquel 100 mg daily for psychosis and mood, ambien 10mg at the nighttime for insomnia Patient was seen by neurology team, most likely patient has early signs of dementia versus vascular changes. Over the course of this hospitalization pt was attending groups, pt also had medication management, had therapeutic milieu. Overall pt improved significantly, pt's affect became brighter, pt was less depressed, has realistic future oriented plans pt willing to attend [facility], pt does not appear to be psychotic, or anxious, pt was socially appropriate, no behavioral issues, pts insight improved as well and soon pt deemed to be ready for discharge. spring floor service worker and this appeals writer gave a call to patient's Sister Catherine, discharge plan was discussed in details. Patient herself pointed her sister to be her power of state attorney, now patient's sister Catherine will be helping patient to make decisions if patient will be not able to do so. Sign legal documents. At the time of the discharge patient pose no imminent danger to self or others, will be following up at [facility], information about follow up appointment, time and address provided to the pt and her POA, (see SW note for more detailed information). It is a patient responsibility to follow up with outpatient clinic, PMD as well as specialists. In case patient will need to obtain results of studies pending at discharge, patient was provided with contact information of Psychiatric Inpatient unit [phone] as well as Medical Record Department [phone], as well as [facility] team [phone]. Nicotine patch was provided Naltrexone treatment is not indicated at this time, patient denied any cravings Counseling about smoking and opioid cessation provided AA meetings as well as [facility] smoking cessation treatment program information was provided by the pt was provided with prescriptions (see medication reconciliation form) Pt was educated about safety plan in case of worsening of symptoms or in case of suicidal or homicidal ideation call 911 or go to the nearest ER, also was educated to take meds as prescribed and stay away from drugs, pt verbalized understanding. - Diagnosis (1) Depression Status: Chronic Priority: High - Final Diagnosis (DSM 5) Condition upon Discharge: STABLE DSM 5: r/o early stage of dementia, vs vascular changes Disposition: HOME/ ROUTINE Follow-up Treatment Plan: At the time of the discharge patient pose no imminent danger to self or others, will be following up at [facility], information about follow up appointment, time and address provided to the pt and her POA, (see note for more detailed information). It is a patient responsibility to follow up with outpatient clinic, PMD as well as specialists. In case patient will need to obtain results of studies pending at discharge, patient was provided with contact information of Psychiatric Inpatient unit [phone] as well as Medical Record Department [phone], as well as [facility] team [phone]. Nicotine patch was provided Naltrexone treatment is not indicated at this time, patient denied any cravings Counseling about smoking and opioid cessation provided AA meetings as well as [facility] smoking cessation treatment program information was provided by the pt was provided with prescriptions (see medication reconciliation form) Pt was educated about safety plan in case of worsening of symptoms or in case of suicidal or homicidal ideation call 911 or go to the nearest ER, also was educated to take meds as prescribed and stay away from drugs, pt verbalized understanding. Prescriptions/Medication Reconciliation: Albuterol/Ipratropium [Duoneb 3 mg/0.5 mg (3 ml) UD] 3 ml IH [id number] #1 neb Atorvastatin [Lipitor] 20 mg PO DIN #7 tab Cholecalciferol [Vitamin D 1000 IU] 1,000 intlu PO DAILY #7 tab Clonazepam [Klonopin] 1 mg PO BID #30 tab Cyanocobalamin [Vitamin B12 100 mcg Tab] 100 mcg PO DAILY #7 tab Fluoxetine HCl [Prozac] 40 mg PO DAILY #14 capsule Nicotine 14 mg/24 hr [Nicoderm CQ] 1 patch TD DAILY #14 patch QUEtiapine [Seroquel] 100 mg PO HS #14 tab Zolpidem [Ambien] 10 mg PO HS #14 tab
== END 2018-08-20 14:11 | disposition home or self-care (01) | DRG 426 ==
LOC: ED 17:43 → ERH 20:10 → PSYC 21:05
PROVIDERS: ADMIT Psychiatry & Neurology Psychiatry; ATTEND Psychiatry & Neurology Psychiatry
DX: F32.9 Major depressive disorder, single episode, unspecified (principal); F11.10 Opioid abuse, uncomplicated; J44.9 Chronic obstructive pulmonary disease, unspecified; N39.0 Urinary tract infection, site not specified; F10.10 Alcohol abuse, uncomplicated; F17.210 Nicotine dependence, cigarettes, uncomplicated; F29 Unspecified psychosis not due to a substance or known physiological condition; F41.9 Anxiety disorder, unspecified; G47.00 Insomnia, unspecified; E11.9 Type 2 diabetes mellitus without complications; E78.5 Hyperlipidemia, unspecified; I10 Essential (primary) hypertension; Z79.899 Other long term (current) drug therapy; Z87.440 Personal history of urinary (tract) infections; Z90.49 Acquired absence of other specified parts of digestive tract; Z91.19 Patient's noncompliance with other medical treatment and regimen; Z88.2 Allergy status to sulfonamides; Z88.0 Allergy status to penicillin